=== PATIENT | female | born 1945 | race Caucasian/White ===

== ENCOUNTER 2015-12-28 08:18 | Inpatient (IN) | payer OTHER ==
[~2015-12-28] VITALS: Ht 157.5 cm; Wt 87.9 kg
[~2015-12-28 08:18] MED LIST: /GLIP10TAB PO; /NITR4TASL SL; ALBU17IN INH; AMLO10TA2 PO; ASPI1TAB24 PO; ASPI325T PO; ASPI81TA85 PO; ATEN25TA PO; ATOR1TAB18 PO; ATOR40TA PO; BENA20TA2 PO; BENA40TA2 PO; CARV6.25 PO; CIPR500T3 PO; CLOP75TA2 PO; DOXY150C PO; GLIP10TA6 PO; GLUC500T PO; IBUP80TA PO; INSUH10VL SC; INSULANT SC; ISOS20TAB PO; LANTUS INSULIN SC; METF500T PO; PERCOCET PO; PRAV40TA2 PO; REGULAR INSULIN SC; TYLE325T5 PO; VICT18IN SC; VITA200016 PO; VITA200038 PO; VITAMIN D PO; insulin
[2016-02-01] VITALS (7 sets, daily range): BP systolic 139–176; BP diastolic 63–85; O2SAT 93–96
[2016-02-01] MEDS ORDERED: cefoTEtan DISODIUM 2 GM in D5W MINI-BAG PLUS 100 ML IV ONE ×2 (07:15→15:00)
[2016-02-01] MEDS ORDERED: ROCURONIUM BROMIDE 50 MG/5 ML VIAL As Ordered ONE ×3 (07:21→11:13)
[2016-02-01] MEDS ORDERED: MIDAZOLAM INJ 2 MG/2 ML VIAL (J2250) As Ordered ONE (07:21)
[2016-02-01] MEDS ORDERED: PROPOFOL 200 MG/20 ML VIAL As Ordered ONE ×3 (07:21→14:41)
[2016-02-01] MEDS ORDERED: LIDOCAINE 2% INJ 100 MG/5 ML SDV (FOR ANES.) As Ordered ONE (07:21)
[2016-02-01] MEDS ORDERED: fentaNYL 250 MCG/5 ML INJECTION (J3010) As Ordered ONE (07:21)
[2016-02-01] MEDS ORDERED: LABETALOL HCL 100 MG/20 ML VIAL As Ordered ONE (08:45)
[2016-02-01] MEDS ORDERED: REMIFENTANIL 1MG 3ML VIAL As Ordered ONE ×2 (08:52→10:52)
[2016-02-01] MEDS ORDERED: HYDROmorphone HCL 2 MG/ML 1ML VIAL (J1170) As Ordered ONE (10:46)
[2016-02-01] MEDS ORDERED: NEOSTIGMINE 1MG/ML 5 ML SYRINGE (J2710) As Ordered ONE (11:16)
[2016-02-01] MEDS ORDERED: GLYCOPYRROLATE INJ 0.2 MG/ML 2 ML VIAL As Ordered ONE (11:16)
[2016-02-01] MEDS ORDERED: ONDANSETRON 4MG/2ML VIAL (J2405) As Ordered ONE (11:16)
[2016-02-01] MEDS ORDERED: PHENYLephrine HCL 500 MCG/5 ML (100MCG/ML) SYRINGE (J2370) As Ordered ONE (11:28)
[2016-02-01] MEDS ORDERED: METOPROLOL 5 MG/5 ML VIAL As Ordered ONE (14:10)
[2016-02-01] MEDS ORDERED: HumaLOG INSULIN (NovoLOG) PER UNIT As Ordered ONE ×2 (14:36→15:12)
[2016-02-01] MEDS ORDERED: ESTROGENS VAGINAL CREAM 30GM As Ordered ONE (15:39)
[2016-02-01] MEDS ORDERED: ESTROGENS VAGINAL CREAM 30GM PV ONE (16:07)
[2016-02-01] MEDS ORDERED: MORPHINE 2 MG/ML 1ML SYRINGE IV PRN (16:45)
[2016-02-01] MEDS ORDERED: ONDANSETRON 4MG/2ML VIAL (J2405) IV PRN ×2 (16:45→17:00)
[2016-02-01] MEDS ORDERED: fentaNYL 100 MCG/2 ML INJECTION (J3010) IV PRN (16:45)
[2016-02-01] MEDS ORDERED: LR 1,000 ML IV SCH (16:45)
[2016-02-01] MEDS: KCL 20MEQ in NS 1000ML 1,000 ML IV SCH (16:53)
[2016-02-01] MEDS: HumaLOG INSULIN (NovoLOG) PER UNIT SC SCH ×2 (18:00→23:11)
[2016-02-01] MEDS: PANTOPRAZOLE 40MG INJ (PROTONIX) (C9113) IV SCH (18:55)
[2016-02-01] MEDS: KETOROLAC 30 MG/ML VIAL (J1885) IV SCH (18:55)
[2016-02-01] MEDS ORDERED: GLUCOSE 4 GM CHEW TABLET PO PRN (20:15)
[2016-02-01] MEDS ORDERED: GLUCAGON FOR INJ 1 MG VIAL (J1610) SC PRN (20:15)
[2016-02-01] MEDS ORDERED: DEXTROSE 50% 50 ML SYRINGE IV PRN (20:15)
[2016-02-01] MEDS ORDERED: ACTO30TA7 PO (20:24)
[2016-02-01] MEDS ORDERED: NITR4TASL SL (20:24)
[2016-02-01] MEDS ORDERED: HumaLOG INSULIN (NovoLOG) PER UNIT SC SCH (21:00)
[2016-02-01] MEDS ORDERED: CARVedilol 6.25 MG TAB PO SCH (21:00)
[2016-02-01] MEDS ORDERED: NITROGLYCERIN 0.4 MG SUBL TABLET SL PRN (21:00)
--- NOTE | 2016-02-01 21:15 | CR ---
DATE OF CONSULTATION: 02/01/2016 CONSULTATION REQUESTED BY: Dr. Burnett PRIMARY CARE PROVIDER: Dr. Dove TUMBLING AND ROLLING SUPERVISOR: Dr. Florez REASON FOR CONSULTATION: Medical management. HISTORY OF PRESENT ILLNESS: Ms. Ng is a pleasant 71-year-old female who was admitted postoperatively for radical cystectomy per Dr. Burnett. She apparently has undergone a procedure due to bladder tumor. She currently has no specific complaints. PAST MEDICAL HISTORY: 1. Hypertension. 2. Coronary artery disease. 3. Type 2 diabetes. 4. Hyperlipidemia. 5. Suspected obstructive sleep apnea (ALEX). PAST SURGICAL HISTORY: 1. Pilonidal cyst. 2. Cardiac catheterization. 3. Partial bladder tumor resection. 4. Cystoscopy in November 2015. SOCIAL HISTORY: Noncontributory. FAMILY HISTORY: Noncontributory. ALLERGIES: No known drug allergies. CURRENT HOME MEDICATIONS: - vitamin D 2000 units twice a day - Lantus 50 units daily - glipizide 10 mg twice a day - carvedilol 6.25 mg twice a day - Lipitor 80 mg daily - benazepril 40 mg daily - NovoLog sliding scale with meals - amlodipine 10 mg daily - aspirin 81 mg daily - sublingual nitroglycerin 0.4 mg as directed every 5 minutes as needed REVIEW OF SYSTEMS: CONSTITUTIONAL: She denies fevers, chills, nausea, or vomiting. HEENT: No headache, lightheaded, dizziness, blurry vision, double vision, or tinnitus. PULMONARY: She denies productive sputum, cough, or hemoptysis. CARDIOVASCULAR: No chest pain, dyspnea on exertion, or lower extremity edema. GASTROINTESTINAL: No nausea, vomiting, diarrhea. Bowel movements are regular. No hematochezia or melena. GENITOURINARY: She denies any dysuria. As indicated above, she does have a history of bladder tumor with partial resection and repeat radical cystectomy done this evening. MUSCULOSKELETAL: No bone, muscle, or joint pain, swelling, or erythema. NEUROLOGIC: No paresthesias or paralysis. ENDOCRINE: Positive for diabetes. Negative for thyroid disorder. HEMATOLOGY: No bleeding or bruising disorder. No prior history of venous thromboembolism. ONCOLOGY: Positive for bladder tumor. PSYCHIATRIC: Negative for depression. No suicidal ideation. No audiovisual hallucination. A 10-point review of systems complete. Pertinent positives are listed. PHYSICAL EXAMINATION: Temperature is 98.6, pulse 86, respiratory rate 20, blood pressure (BP) 164/70, SpO2 93% on 3 liters. GENERAL: The patient appears to be in no acute distress. She is alert and oriented. HEENT: Unremarkable. Throat clear. LUNGS: Diminished bibasilar breath sounds; otherwise clear. HEART: Regular rate and rhythm. ABDOMEN: Obese, soft. Positive bowel sounds. EXTREMITIES: No edema. No calf tenderness. Fingerstick this evening is 294. IMPRESSION: Ms. Ng is a pleasant 71-year-old female who is status post radical cystectomy, postoperative day number 0, and we have been asked to follow along for medical management. PROBLEM LIST: 1. Bladder tumor status post radical cystectomy 2. Hypertension. 3. Coronary artery disease. 4. Diabetes, type 2. 5. Hyperlipidemia. 6. Suspected obstructive sleep apnea. RECOMMENDATIONS: Would recommend holding the glipizide during her hospital stay. She may resume her regular home medications. She remains nothing by mouth with an nasogastric (NG) tube per surgical orders. I did make a change in her fingersticks to every 6 hours with standard sliding scale per [facility] ([facility]) protocol. This could be adjusted as needed. Once she starts eating I would recommend adding on her daily dose of Lantus at 50 units daily. Her blood pressure medications will have hold parameters, and I did take the liberty to add daily labs, complete blood counts (CBC), and renal profile. This case will be signed out to Dr. Destin Rivero, who will be following for the hospitalist group for the next few days. Any further questions or issues should they arise, please feel free to contact the hospitalist group. Thank you for allowing us to participate in the care of this patient.
[2016-02-01] MEDS ORDERED: HumuLIN R (REGULAR) INSULIN (NovoLIN R) **100U/ML** PER UNIT SC SCH (22:00)
[2016-02-01] MEDS: ACETAMINOPHEN 650MG ER TAB (TYLENOL ARTHRITIS) PO SCH (22:04)
[2016-02-01] MEDS: CARVedilol 6.25 MG TAB PO SCH (22:04)
[2016-02-01] MEDS: VITAMIN D 1,000 INTERNATIONAL UNITS TABLET PO SCH (22:05)
[2016-02-01] MEDS: LevoFLOXacin 500 MG in APPROPRIATE DILUENT 1 EA IV SCH (22:05)
[2016-02-02] VITALS (19 sets, daily range): BP systolic 135–167; BP diastolic 63–70; O2SAT 94–99
--- NOTE | 2016-02-02 00:02 | RO ---
DATE OF PROCEDURE: 02/01/2016 PREPROCEDURE DIAGNOSIS: Bladder cancer. POSTPROCEDURE DIAGNOSIS: Bladder neoplasm. PROCEDURE: Robotic-assisted radical cystectomy, plus total hysterectomy, plus bilateral pelvic lymph node dissection, plus bilateral salpingo-oophorectomy, plus intracorporeal ileal conduit urinary diversion. SURGEON: Juvenal Burnett MD CULINARY MANAGER: Caridad Verduzco ANESTHESIA: General. FINDINGS: Bladder, uterus, bilateral ovaries and bilateral lymph nodes, pelvic. ESTIMATED BLOOD LOSS: 600 mL. COMPLICATIONS: None. HISTORY OF THE PRESENT ILLNESS: A 71-year-old female patient with an important medical history of hypertension, insulin-dependent diabetes and coronary artery disease with cardiac stent. She has stopped her anticoagulation therapy, and she is only on aspirin 81 mg, baby aspirin. She has consented for a robotic-assisted radical cystectomy, plus total hysterectomy, plus bilateral salpingo-oophorectomy, plus bilateral extended pelvic lymph dissection, plus ileal conduit urinary diversion, intracorporeal urinary diversion. For this reason, we are performing this surgery today. DESCRIPTION OF PROCEDURE: In a patient under general anesthesia in supine modified low lithotomy position with an NG tube draining gastric content, and after prepping and draping the area of concern, which included the entire genitalia and abdomen, we inserted a #16-Somali Castro catheter and inflated the balloon to 10 mL and put it to gravity. We then performed a 2 cm incision supraumbilically, 4 cm above the umbilicus. Through this incision, we opened peritoneal cavity and introduced a balloon trocar 12 mm in diameter, with a 40 mL balloon, inflated the abdomen with CO2 at a maximum pressure of 50 at high flow. We then placed the patient in steep Trendelenburg position. We then positioned lateral trocars with a hand-held robotic-assisted camera 0 degrees. We placed the other trocars, two metallic trocars 8 cm away from each other on the right side, one VersaStep in the midclavicular line, 8 cm away from this one, an 8 mm metallic trocar and 8 cm from this one, a 15 mm trocar for the Endo ALISHA staplers for the intracorporeal urinary diversion. We then proceeded to dock the robot. On the left arm we used monopolar scissors, on the right arm we used bipolar PK and ProGrasp. We started by dissecting the sigmoid colon and detaching the line of Toldt, the sigmoid colon on the left side and turning it toward the right side. We identified the ureter, then performed a ureterolysis from above the iliac vessels down to the bladder. We ligated the ureter proximal to the bladder with a Hem-o-Tawanna times two. One of the Hem-o-Loks was attached to a inked Vicryl stitch , cut in the middle. We then proceeded to do the same pattern, mobilizing the sigmoid toward the left side and dissecting the ureter up to the bladder. We hemoclipped the ureter times two at the entrance of the bladder. One of the hemoclips was attached to a Vicryl stitch non-dyed, we cut in the middle. Once the ureters were dissected, we dissected the pedicles of the ovaries and Hem-o-Loked both pedicles with Hem-o-Tawanna times two and cut in the middle. We then proceeded to pass a Jasson needle and a #2-0 silk stitch percutaneously, suprapubically and passed it through the uterus and then back percutaneously outside the body and put a Jie clamp to the skin to actually retract the uterus anteriorly. We Hem-o-Loked the ovaries bilaterally to the silk stitch also in the midline. This allowed us to actually elevate the uterus and the ovaries up completely and dissected the pedicles of the uterus. I ligated with Hem-o-Loks the uterine arteries bilaterally. We then proceeded to actually put a sponge stick in the vagina, and with monopolar scissors, we cut the cul-de-sac of the vagina and then opened the vagina exposing the sponge stick. At that moment in time, with a LigaSure device , we dissected the vagina laterally on both sides up to the level of the pedicles of the bladder. We secured the pedicles of the bladder also with the LigaSure device and Laurel laparoscopic device. Once the pedicles of the bladder were secured, we actually mobilized the bladder completely and dropped the bladder by cutting the stitch silk and then cutting the pubic ligaments as well as the endopelvic fascia. Once the dorsal vein complex was visualized, we secured it with the LigaSure device also. We then proceeded to actually push with the finger at the level of the urethra where the Castro was entering to actually push into the pelvis the urethra and dissect the urethral meatus completely. Once the bladder was completely detached with the uterus attached to it and the ovaries, we placed a Hem-o-Tawanna on the Castro catheter and cut the Castro catheter to keep the balloon inside the bladder. We then passed a 15 mm Endo Catch bag through the vagina and placed the bladder, uterus and ovaries inside the Endo Catch bag. We extracted the specimens through the vagina. At that moment in time, we performed our extended pelvic lymph node dissection with monopolar scissors and bipolar PK. Our limits of dissection were the bifurcation of the iliac arteries superiorly, medially the sacrum, posteriorly the pelvic sidewall, inferiorly the lacunar ligaments and laterally the genitofemoral nerves. The packets obtained were the obturator packets, the internal iliac vein packets, the external iliac vein packets, the hypogastric packets and the common iliac packets. All were sent in one Endo Catch bag through the vagina also. The same procedure and technique was carried out on the right side; right extended pelvic lymph node dissection. Lymphostasis and hemostasis was carried out with bipolar PK and Hem-o-Loks. We then proceeded to actually reconstruct the vagina by dissecting the vaginal wall posteriorly and allowing the vagina to flap in a clam manner anteriorly to actually reconstruct a new vagina. We sutured the new vagina with a V-Loc in a running fashion times two to each angle in a watertight anastomosis. We placed packing with Colpotrophine packing into the vagina. We then proceeded to actually transpose our left ureter underneath the sigmoid colon from left to right and then spatulate the ureters for about 3 cm in length. We then proceeded to actually, with Monocryl stitches, do a Khalil technique of ureter to ureter anastomosis, side to side, starting in the spatulation area in the angle with a #4-0 Monocryl and running it up to the distal end. Once this was done, we identified our ileal segment. With bowel clamps, we grabbed the ileum and then with a ALISHA stapler 60 cm x 2.5 cm entering through pediatric dental assistant port, we dissected our ileal segment times two. A 15 cm ileal segment was harvested. We then proceeded to do our ileal-ileal anastomosis, [id number] by cutting the antimesenteric border of the bowel and then sliding in a 60 x 2.5 mm Endo ALISHA stapler and an additional 45 mm x 2.5 mm Endo ALISHA stapler inside the anastomosis , extending the ileal-ileal anastomosis. We then proceeded to actually use a 60 mm x 2.5 to close the kelin hiatus of the [id number] anastomosis and then another 45 also to finish the closure of the anastomosis. Once the ileal-ileal anastomosis, [id number], was carried out, we actually proceeded to actually excise the posterior part of the ileal conduit to actually do our ureteral ileal anastomosis. With #4-0 Monocryl in a running fashion, we started suturing the right ureter to the posterior part of the distal end of the ileal conduit in a running fashion. Once this was carried out, we placed the single J stent, #7-Somali, up the kidney right side and left side and then through the ileal conduit. We then proceeded to actually close the ileal ureteral anastomosis with a #4-0 Monocryl in a running fashion. Once this was performed, we took out the third arm and placed a round JALIL drain into the pelvis. We then proceeded to extract the 15 mm port and from inside, with a V-Loc, we secured the hiatus of that port to prevent any port hernias and suturing from inside in a running fashion with a #2-0 V-Loc. We then proceeded to extract all the instruments and grab the stents and the silk attached to the proximal end of the ileal conduit to extract it through the trocar incision site on the right side in the midclavicular line. After extracting all the instruments, we undocked the robot, we took all the trocars out, and we extended our ostomy incision, our trocar incision site with a cruciate incision in the skin. We cut both edges with curved Mayos creating a rounded stoma site. We then did a cruciate incision in the fascia of the muscle and dilated the muscle and split the rectus muscle. Through this, we actually could put out the ileal conduit and we did a [place] technique to mature the stoma. To mature the stoma, we did the [place] with #2-0 Vicryl, we suture ligated the stents to the skin with a #3-0 nylon. We suture ligated also the JALIL drain with a #3-0 nylon. We then placed a urostomy bag on the ileal conduit and JALIL bulb to suction on the JALIL drain. We closed the midline incision with a PDS #1 in separate stitches, we closed the skin with #4-0 Monocryl subcuticular. We placed Mastisol, Steri-Strips, Telfa and Tegaderm on top of each incision site. PLAN: The patient will pass to recovery and then to the progressive care unit (PCU) since she is diabetic, insulin dependent, and also has a history of hypertension, as well as coronary artery disease. Once she is tolerating a regular diet and ambulating well, she will be discharged home. MAGNOLIA
[2016-02-02] MEDS: KCL 20MEQ in NS 1000ML 1,000 ML IV SCH ×4 (01:31→17:45)
[2016-02-02] MEDS: KETOROLAC 30 MG/ML VIAL (J1885) IV SCH ×2 (01:32→09:09)
[2016-02-02] MEDS: ACETAMINOPHEN 650MG ER TAB (TYLENOL ARTHRITIS) PO SCH ×3 (05:06→21:52)
[2016-02-02] MEDS: HumaLOG INSULIN (NovoLOG) PER UNIT SC SCH ×3 (05:21→17:24)
[2016-02-02 06:03] LABS: MEAN CORPUSCULAR HEMOGLOBIN 28.2 pg (27.0-33.0); MEAN CORPUSCULAR HGB CONC 32.3 g/dl (32.0-36.5); MEAN CORPUSCULAR VOLUME 87.4 fl (80.0-96.0); RED CELL DISTRIBUTION WIDTH 15.8 % (11.5-14.5); WHITE BLOOD COUNT 11.2 K/mm3 (4.0-10.0)
[2016-02-02 06:24] LABS: ALBUMIN 2.9 GM/DL (3.2-5.2); CALCIUM LEVEL 7.8 MG/DL (8.8-10.2); CREATININE FOR GFR 1.05 MG/DL (0.55-1.02); GLOMERULAR FILTRATION RATE 55.3 (>45); PHOSPHORUS LEVEL 3.7 MG/DL (2.5-4.9); POTASSIUM SERUM 4.5 MEQ/L (3.5-5.1)
[2016-02-02] MEDS ORDERED: ATORVASTATIN 20 MG TAB PO SCH (09:00)
[2016-02-02] MEDS ORDERED: amLODIPine 10 MG TAB PO SCH (09:00)
[2016-02-02] MEDS: ATORVASTATIN 20 MG TAB PO SCH (09:08)
[2016-02-02] MEDS: VITAMIN D 1,000 INTERNATIONAL UNITS TABLET PO SCH ×2 (09:08→21:52)
[2016-02-02] MEDS: BENAZEPRIL 20 MG TAB PO SCH (09:08)
[2016-02-02] MEDS: PANTOPRAZOLE 40MG INJ (PROTONIX) (C9113) IV SCH (09:08)
[2016-02-02] MEDS: CARVedilol 6.25 MG TAB PO SCH ×2 (09:09→21:52)
[2016-02-02] MEDS: amLODIPine 10 MG TAB PO SCH (09:09)
[2016-02-02] MEDS: ASPIRIN 81 MG CHEW TABLET PO SCH (09:09)
--- NOTE | 2016-02-02 14:10 | IPNPDOC ---
Assessment/Plan Date Seen The patient was seen on 02/02/16. Plan / VTE VTE Prophylaxis Ordered?: Yes Plan Plan Text 71 year old female patient with PMH of CAD, HTN, DM, HLD, and morbid obesity came in for bladder tumor s/p cystectomy on 02/01/16, medicine team was consulted for the management of medical comorbidities. 1. Bladder tumor s/p cystectomy on 02/01/16 Follow with urology team. 2. HTN On carvedilol 6.25mg po bid, amlodipine 10mg po daily. Would resume her home dose of benazepril 40mg po daily if BP is still elevated. 3. CAD / HLD No active complaints. On ASA and Lipitor. 4. DM On insulin sliding scale per [facility] protocol. Holding oral diabetic regimen for now. Once she resumes her diet, her home dose of Lantus 50 units SC daily can be restarted. 5. Suspicious ALEX / Morbid obesity Would consider sleep study but can be done as an outpatient. Thank you for the consult. Will continue to follow the patient. Subjective Review of Systems CC/HPI 71 year old female patient who was admitted for bladder neoplasm and underwent cystectomy. Medicine team was consulted for the management for other comorbidities. Patient was seen and examined at bedside. She is in no acute distress. No chest pain or shortness of breath. Blood glucose is still elevated at 260-300. General: Denies: Chills, Fatigue, Malaise, Night Sweats, Normal Appetite, Other Symptoms, ROS Unobtainable Constitutional: Denies: Chills, Fatigue, Fever, Lethargy, Malaise, Night Sweats , Other, Weakness, Weight Loss Pulmonary: Denies: Cough, Dyspnea, Other Symptoms, Pleuritic Chest Pain Cardiovascular: Denies: Chest Pain, Edema, Lt Headedness, Orthopnea, Other Symptoms, Palpitations, Paroxysmal Noc. Dyspnea Gastrointestinal: Denies: Abdominal Pain, Constipation, Diarrhea, Hematochezia , Melena, Nausea, Other Symptoms, Vomiting Objective Physical Examination General Exam: Positive: Other (Morbidly obese) Neck Exam: Positive: Other (Hard to measure JVP because of thick neck) Chest Exam: Negative: Clear to auscultation, Diminished, Normal air movement, Other, Rales, Rhonchi, Wheezing Heart Exam: Negative: Bradycardic, Gallops, Irregular Rhythm, Murmurs, Normal S1, Normal S2, Other, Rate Normal, Regular Rhythm, Rubs, Tachycardic Telemetry: Positive: No significant arrhythmia Abdomen Exam: Negative: BS Hyperactive, BS Hypoactive, Hepatospenomegaly, Hernia, Mass, Normal bowel sounds, Other, Soft, Tenderness Vital Signs/I&O Vital Signs Date Time Temp Pulse Resp B/P Pulse Ox O2 Delivery O2 Flow Rate FiO2 02/02/16 11:00 97 Nasal Cannula 3.0 02/02/16 09:09 79 167/70 02/02/16 08:00 97.2 20 I&O- Last 24 Hours up to 6 AM 02/02/16 06:00 Intake Total 4749 ml Output Total 2986 ml Balance 1763 ml Laboratory Data Labs 24H Laboratory Tests 2 02/01/16 16:33: Bedside Glucose (Misc Panel) 294H 02/01/16 18:34: Bedside Glucose (Misc Panel) 291H 02/01/16 23:03: Bedside Glucose (Misc Panel) 304H 02/02/16 05:12: Bedside Glucose (Misc Panel) 264H 02/02/16 05:41: Albumin 2.9L, Blood Urea Nitrogen 20H, Creatinine 1.05H, Sodium Level 140, Potassium Level 4.5, Chloride Level 104, Carbon Dioxide Level 27, Anion Gap 9, Calcium Level 7.8L, Glomerular Filtration Rate 55.3, Phosphorus Level 3.7 02/02/16 11:33: Bedside Glucose (Misc Panel) 293H CBC/BMP Laboratory Tests 02/02/16 05:41 Anion Gap 9, Red Blood Count 3.57 L, Mean Corpuscular Volume 87.4, Mean Corpuscular Hemoglobin 28.2, Mean Corpuscular Hemoglobin Concent 32.3, Red Cell Distribution Width 15.8 H FSBS Laboratory Tests Test 02/01/16 16:33 02/01/16 18:34 02/01/16 23:03 02/02/16 05:12 Range/Units Bedside Glucose (Misc Panel) 294 291 304 264 80-115 MG/DL Test 02/02/16 11:33 Range/Units Bedside Glucose (Misc Panel) 293 80-115 MG/DL NAZARIO MILLER MD Feb 02, 2016 14:10
[2016-02-02] MEDS ORDERED: KETOROLAC 30 MG/ML VIAL (J1885) IV SCH (17:45)
[2016-02-02] MEDS: LevoFLOXacin 500 MG in APPROPRIATE DILUENT 1 EA IV SCH (20:02)
[2016-02-02] MEDS: KETOROLAC 30 MG/ML VIAL (J1885) IV PRN (20:03)
[2016-02-03] VITALS (12 sets, daily range): BP systolic 136–175; BP diastolic 62–88; O2SAT 97–98
[2016-02-03] MEDS: HumaLOG INSULIN (NovoLOG) PER UNIT SC SCH ×4 (00:19→17:33)
[2016-02-03] MEDS: KCL 20MEQ in NS 1000ML 1,000 ML IV SCH ×2 (02:13→12:20)
[2016-02-03] MEDS ORDERED: MORPHINE 2 MG/ML 1ML SYRINGE IV ONE (03:15)
[2016-02-03 05:57] LABS: MEAN CORPUSCULAR HEMOGLOBIN 28.3 pg (27.0-33.0); MEAN CORPUSCULAR HGB CONC 30.8 g/dl (32.0-36.5); MEAN CORPUSCULAR VOLUME 91.9 fl (80.0-96.0); RED CELL DISTRIBUTION WIDTH 14.7 % (11.5-14.5); WHITE BLOOD COUNT 7.8 K/mm3 (4.0-10.0)
[2016-02-03 06:06] LABS: ALBUMIN 2.5 GM/DL (3.2-5.2); ANION GAP 7 MEQ/L (8-16); BLOOD UREA NITROGEN 14 MG/DL (7-18); CALCIUM LEVEL 7.6 MG/DL (8.8-10.2); CARBON DIOXIDE LEVEL 27 MEQ/L (21-32); CHLORIDE LEVEL 110 MEQ/L (98-107); CREATININE FOR GFR 0.69 MG/DL (0.55-1.02); GLOMERULAR FILTRATION RATE > 60.0 (>45); GLUCOSE, FASTING 218 MG/DL (80-110); PHOSPHORUS LEVEL 2.1 MG/DL (2.5-4.9); POTASSIUM SERUM 4.5 MEQ/L (3.5-5.1); SODIUM LEVEL 144 MEQ/L (136-145)
[2016-02-03] MEDS: ACETAMINOPHEN 650MG ER TAB (TYLENOL ARTHRITIS) PO SCH ×3 (06:08→21:38)
[2016-02-03] MEDS: PANTOPRAZOLE 40MG INJ (PROTONIX) (C9113) IV SCH (08:33)
[2016-02-03] MEDS: ASPIRIN 81 MG CHEW TABLET PO SCH (08:34)
[2016-02-03] MEDS: KETOROLAC 30 MG/ML VIAL (J1885) IV PRN ×2 (08:34→16:26)
[2016-02-03] MEDS: VITAMIN D 1,000 INTERNATIONAL UNITS TABLET PO SCH ×2 (08:34→21:38)
[2016-02-03] MEDS: ATORVASTATIN 20 MG TAB PO SCH (08:34)
[2016-02-03] MEDS: CARVedilol 6.25 MG TAB PO SCH ×2 (08:43→21:38)
[2016-02-03] MEDS: BENAZEPRIL 20 MG TAB PO SCH (08:43)
[2016-02-03] MEDS: amLODIPine 10 MG TAB PO SCH (08:43)
--- NOTE | 2016-02-03 10:40 | IPNPDOC ---
Assessment/Plan Date Seen The patient was seen on 02/03/16. Plan / VTE VTE Prophylaxis Ordered?: No VTE Exclusion Pharmacological: Bleeding Risk Plan Plan Text 71 year old female patient with PMH of CAD, HTN, DM, HLD, and morbid obesity came in for bladder tumor s/p cystectomy on 02/01/16, medicine team was consulted for the management of medical comorbidities. 1. Bladder tumor s/p cystectomy on 02/01/16 Follow with urology team. Pain management per the primary team. 2. HTN On carvedilol 6.25mg po bid, amlodipine 10mg po daily. Benazepril 40mg po daily was resumed. Would monitor her BP for now with current medications. 3. CAD / HLD No active complaints. On ASA and Lipitor. 4. DM On insulin sliding scale per [facility] protocol. Holding oral diabetic regimen for now. Since she resumed her diet, would restart her home dose of Lantus 50 units SC daily at night. 5. Anemia No signs of bleeding, likely dilutional. Hb checked 10.1 to 9.0, and repeated as 8.8. Will monitor CBC for now. 6. Suspicious ALEX / Morbid obesity Would consider sleep study but can be done as an outpatient. 7. DVT prophylaxis She is not on since post-op. Would recommend heparin SC if no bleeding concerns per the primary team. Thank you for the consult. Will continue to follow the patient. Subjective Review of Systems CC/HPI Patient was seen and examined at bedside. She is in no acute distress. No chest pain or shortness of breath. No signs of bleeding. She is getting out of bed. Her glucose was at around 260-300 and is better controlled today at around 200- 260. Objective Physical Examination General Exam: Positive: Other (Morbidly obese) Neck Exam: Positive: Other (Hard to measure JVP because of thick neck) Chest Exam: Negative: Clear to auscultation, Diminished, Normal air movement, Other, Rales, Rhonchi, Wheezing Heart Exam: Negative: Bradycardic, Gallops, Irregular Rhythm, Murmurs, Normal S1, Normal S2, Other, Rate Normal, Regular Rhythm, Rubs, Tachycardic Telemetry: Positive: No significant arrhythmia Abdomen Exam: Negative: BS Hyperactive, BS Hypoactive, Hepatospenomegaly, Hernia, Mass, Normal bowel sounds, Other, Soft, Tenderness Vital Signs/I&O Vital Signs Date Time Temp Pulse Resp B/P Pulse Ox O2 Delivery O2 Flow Rate FiO2 02/03/16 08:43 63 175/76 02/03/16 08:00 97.4 20 98 Nasal Cannula 3.0 I&O- Last 24 Hours up to 6 AM 02/03/16 06:00 Intake Total 1980 ml Output Total 2860 ml Balance -880 ml Laboratory Data Labs 24H Laboratory Tests 2 02/02/16 11:33: Bedside Glucose (Misc Panel) 293H 02/02/16 17:20: Bedside Glucose (Misc Panel) 249H 02/03/16 00:08: Bedside Glucose (Misc Panel) 236H 02/03/16 05:31: Albumin 2.5L, Blood Urea Nitrogen 14, Creatinine 0.69, Sodium Level 144, Potassium Level 4.5, Chloride Level 110H, Carbon Dioxide Level 27, Anion Gap 7L , Calcium Level 7.6L, Glomerular Filtration Rate > 60.0, Phosphorus Level 2.1#L 02/03/16 05:56: Bedside Glucose (Misc Panel) 209H CBC/BMP Laboratory Tests 02/03/16 05:31 Anion Gap 7 L, Red Blood Count 3.19 L, Mean Corpuscular Volume 91.9, Mean Corpuscular Hemoglobin 28.3, Mean Corpuscular Hemoglobin Concent 30.8 L, Red Cell Distribution Width 14.7 H FSBS Laboratory Tests Test 02/02/16 11:33 02/02/16 17:20 02/03/16 00:08 02/03/16 05:56 Range/Units Bedside Glucose (Misc Panel) 293 249 236 209 80-115 MG/DL NAZARIO MILLER MD Feb 03, 2016 10:40
[2016-02-03 13:26] LABS: BASO % 0.5 % (0.0-1.0); EOS # 0.1 K/mm3 (0.0-0.50); EOS % 1.1 % (0.0-3.0); LARGE UNSTAINED CELL # 0.2 K/mm3 (0.0-0.4); LARGE UNSTAINED CELL % 2.4 % (0.0-4.0); LYMPH % 21.5 % (24.0-44.0); MEAN CORPUSCULAR HEMOGLOBIN 27.8 pg (27.0-33.0); MEAN CORPUSCULAR HGB CONC 30.8 g/dl (32.0-36.5); MEAN CORPUSCULAR VOLUME 90.5 fl (80.0-96.0); MONO # 0.5 K/mm3 (0.0-0.8); MONO % 5.4 % (0.0-5.0); NEUTROPHILS # 5.7 K/mm3 (1.8-7.7); NEUTROPHILS % 69.1 % (36.0-66.0); PLATELET COUNT, AUTOMATED 129 k/mm3 (150-450); RED CELL DISTRIBUTION WIDTH 15.7 % (11.5-14.5); WHITE BLOOD COUNT 8.2 K/mm3 (4.0-10.0)
[2016-02-03] MEDS: LevoFLOXacin 500 MG in APPROPRIATE DILUENT 1 EA IV SCH (19:57)
[2016-02-04] MEDS: HumaLOG INSULIN (NovoLOG) PER UNIT SC SCH ×5 (00:12→21:43)
[2016-02-04] MEDS: oxyCODONE 5MG TAB PO PRN ×3 (00:12→21:14)
[2016-02-04] MEDS: KCL 20MEQ in NS 1000ML 1,000 ML IV SCH (01:46)
[2016-02-04 04:45] VITALS: BP 152/75
[2016-02-04] MEDS: ACETAMINOPHEN 650MG ER TAB (TYLENOL ARTHRITIS) PO SCH ×3 (05:33→21:14)
[2016-02-04] MEDS: KETOROLAC 30 MG/ML VIAL (J1885) IV PRN ×2 (05:33→14:27)
[2016-02-04 06:58] LABS: MEAN CORPUSCULAR HEMOGLOBIN 28.1 pg (27.0-33.0); MEAN CORPUSCULAR HGB CONC 31.1 g/dl (32.0-36.5); MEAN CORPUSCULAR VOLUME 90.4 fl (80.0-96.0); RED CELL DISTRIBUTION WIDTH 15.5 % (11.5-14.5); WHITE BLOOD COUNT 8.6 K/mm3 (4.0-10.0)
[2016-02-04 07:21] LABS: ALBUMIN 2.7 GM/DL (3.2-5.2); ANION GAP 10 MEQ/L (8-16); BLOOD UREA NITROGEN 14 MG/DL (7-18); CALCIUM LEVEL 8.3 MG/DL (8.8-10.2); CARBON DIOXIDE LEVEL 23 MEQ/L (21-32); CHLORIDE LEVEL 106 MEQ/L (98-107); CREATININE FOR GFR 0.84 MG/DL (0.55-1.02); GLOMERULAR FILTRATION RATE > 60.0 (>45); GLUCOSE, FASTING 279 MG/DL (80-110); PHOSPHORUS LEVEL 2.1 MG/DL (2.5-4.9); POTASSIUM SERUM 4.4 MEQ/L (3.5-5.1); SODIUM LEVEL 139 MEQ/L (136-145)
[2016-02-04 08:00] VITALS: BP 161/72
[2016-02-04] MEDS: ASPIRIN 81 MG CHEW TABLET PO SCH (08:46)
[2016-02-04] MEDS: VITAMIN D 1,000 INTERNATIONAL UNITS TABLET PO SCH ×2 (08:46→21:14)
[2016-02-04] MEDS: PANTOPRAZOLE 40MG INJ (PROTONIX) (C9113) IV SCH (08:46)
[2016-02-04] MEDS: ATORVASTATIN 20 MG TAB PO SCH (08:46)
[2016-02-04] MEDS: BENAZEPRIL 20 MG TAB PO SCH (08:47)
[2016-02-04] MEDS: amLODIPine 10 MG TAB PO SCH (08:47)
[2016-02-04] MEDS: CARVedilol 6.25 MG TAB PO SCH ×2 (08:49→21:15)
[2016-02-04 12:00] VITALS: BP 146/74
--- NOTE | 2016-02-04 12:20 | IPNPDOC ---
Assessment/Plan Date Seen The patient was seen on 02/04/16. Plan / VTE VTE Prophylaxis Ordered?: Yes Plan Plan Text 71 year old female patient with PMH of CAD, HTN, DM, HLD, and morbid obesity came in for bladder tumor s/p cystectomy on 02/01/16, medicine team was consulted for the management of medical comorbidities. 1. Bladder tumor s/p cystectomy on 02/01/16 Follow with urology team. Pain management per the primary team. 2. HTN On carvedilol 6.25mg po bid, amlodipine 10mg po daily, benazepril 40mg po daily. Her BP checked on a higher side but she is having mild abdominal pain from the surgery. Would monitor her BP for now with current medications. 3. CAD / HLD No active complaints. On ASA and Lipitor. 4. DM On insulin sliding scale per [facility] protocol. Holding oral diabetic regimen for now. Since she resumed her diet, restarted Detemir insulin 30 units SC daily. Was on Lantus 50 units SC daily at home but will start from 30 units and monitor her glucose. 5. Anemia No signs of bleeding, likely dilutional. Will monitor CBC. 6. Suspicious ALEX / Morbid obesity Would consider sleep study but can be done as an outpatient. 7. DVT prophylaxis Started heparin SC since no bleeding. Thank you for the consult. Will continue to follow the patient. Subjective Review of Systems CC/HPI Patient was seen and examined at bedside. She is in no acute distress but complaining of mild lower abdominal pain from the surgery. No chest pain or shortness of breath. Gastrointestinal: Reports: Abdominal Pain (Lower abdominal pain from the surgery) Objective Physical Examination General Exam: Positive: Other (Morbidly obese) Neck Exam: Positive: Other (Hard to measure JVP because of thick neck) Chest Exam: Negative: Clear to auscultation, Diminished, Normal air movement, Other, Rales, Rhonchi, Wheezing Heart Exam: Negative: Bradycardic, Gallops, Irregular Rhythm, Murmurs, Normal S1, Normal S2, Other, Rate Normal, Regular Rhythm, Rubs, Tachycardic Telemetry: Positive: No significant arrhythmia Abdomen Exam: Negative: BS Hyperactive, BS Hypoactive, Hepatospenomegaly, Hernia, Mass, Normal bowel sounds, Other, Soft, Tenderness Vital Signs/I&O Vital Signs Date Time Temp Pulse Resp B/P Pulse Ox O2 Delivery O2 Flow Rate FiO2 02/04/16 09:19 20 02/04/16 08:49 78 161/72 02/04/16 08:00 98.2 92 Room Air 02/03/16 08:00 3.0 I&O- Last 24 Hours up to 6 AM 02/04/16 06:00 Intake Total 3120 ml Output Total 3990 ml Balance -870 ml Laboratory Data Labs 24H Laboratory Tests 2 02/03/16 12:23: Bedside Glucose (Misc Panel) 285H 02/03/16 13:04: White Blood Count 8.2, Red Blood Count 3.17L, Hemoglobin 8.8L, Hematocrit 28.7L , Mean Corpuscular Volume 90.5, Mean Corpuscular Hemoglobin 27.8, Mean Corpuscular Hemoglobin Concent 30.8L, Red Cell Distribution Width 15.7H, Platelet Count 129L, Neutrophils (%) (Auto) 69.1H, Lymphocytes (%) (Auto) 21.5L , Monocytes (%) (Auto) 5.4H, Eosinophils (%) (Auto) 1.1, Basophils (%) (Auto) 0.5, Neutrophils # (Auto) 5.7, Lymphocytes # (Auto) 2.0, Monocytes # (Auto) 0.5 , Eosinophils # (Auto) 0.1, Basophils # (Auto) 0.0, Large Unclassified Cells # 0.2, Large Unclassified Cells % 2.4 02/03/16 16:28: Bedside Glucose (Misc Panel) 260H 02/04/16 00:05: Bedside Glucose (Misc Panel) 260H 02/04/16 06:48: Albumin 2.7L, Blood Urea Nitrogen 14, Creatinine 0.84, Sodium Level 139, Potassium Level 4.4, Chloride Level 106, Carbon Dioxide Level 23, Anion Gap 10, Calcium Level 8.3L, Glomerular Filtration Rate > 60.0, Phosphorus Level 2.1L 02/04/16 11:10: Bedside Glucose (Misc Panel) 304H CBC/BMP Laboratory Tests 02/03/16 13:04 Red Blood Count 3.17 L, Mean Corpuscular Volume 90.5, Mean Corpuscular Hemoglobin 27.8, Mean Corpuscular Hemoglobin Concent 30.8 L, Red Cell Distribution Width 15.7 H, Neutrophils (%) (Auto) 69.1 H, Lymphocytes (%) (Auto ) 21.5 L, Monocytes (%) (Auto) 5.4 H, Eosinophils (%) (Auto) 1.1, Basophils (%) (Auto) 0.5, Neutrophils # (Auto) 5.7, Lymphocytes # (Auto) 2.0, Monocytes # ( Auto) 0.5, Eosinophils # (Auto) 0.1, Basophils # (Auto) 0.0 02/04/16 06:48 Red Blood Count 3.22 L, Mean Corpuscular Volume 90.4, Mean Corpuscular Hemoglobin 28.1, Mean Corpuscular Hemoglobin Concent 31.1 L, Red Cell Distribution Width 15.5 H, Anion Gap 10 FSBS Laboratory Tests Test 02/03/16 12:23 02/03/16 16:28 02/04/16 00:05 02/04/16 11:10 Range/Units Bedside Glucose (Misc Panel) 285 260 260 304 80-115 MG/DL NAZARIO MILLER MD Feb 04, 2016 12:20
[2016-02-04] MEDS ORDERED: SLF 3 ML SYR IV PRN (13:00)
[2016-02-04] MEDS: SLF 3 ML SYR IV SCH ×2 (14:26→21:44)
[2016-02-04] MEDS: HEPARIN SOD (PORCINE) 5000 UNITS/ML VIAL SQ SCH ×2 (14:26→21:14)
[2016-02-04] MEDS: LevoFLOXacin 500 MG TABLET PO SCH (14:26)
[2016-02-04 16:00] VITALS: BP 135/62
[2016-02-04 20:00] VITALS: BP 154/70
[2016-02-04] MEDS: LEVEMIR (INSULIN DETEMIR) 1 UNITS/0.01ML SC SCH (21:00)
[2016-02-04 23:59] VITALS: BP 137/65
[2016-02-05] MEDS: KETOROLAC 30 MG/ML VIAL (J1885) IV PRN (03:11)
[2016-02-05 04:00] VITALS: BP 126/59
[2016-02-05 05:23] LABS: MEAN CORPUSCULAR HEMOGLOBIN 28.2 pg (27.0-33.0); MEAN CORPUSCULAR HGB CONC 31.8 g/dl (32.0-36.5); MEAN CORPUSCULAR VOLUME 88.5 fl (80.0-96.0); RED CELL DISTRIBUTION WIDTH 15.5 % (11.5-14.5); WHITE BLOOD COUNT 7.6 K/mm3 (4.0-10.0)
[2016-02-05 05:35] LABS: ALBUMIN 2.5 GM/DL (3.2-5.2); CALCIUM LEVEL 8.1 MG/DL (8.8-10.2); CREATININE FOR GFR 1.56 MG/DL (0.55-1.02); PHOSPHORUS LEVEL 3.1 MG/DL (2.5-4.9); POTASSIUM SERUM 4.4 MEQ/L (3.5-5.1)
[2016-02-05] MEDS: ACETAMINOPHEN 650MG ER TAB (TYLENOL ARTHRITIS) PO SCH ×3 (05:46→21:34)
[2016-02-05] MEDS: LevoFLOXacin 500 MG TABLET PO SCH (05:46)
[2016-02-05] MEDS: HEPARIN SOD (PORCINE) 5000 UNITS/ML VIAL SQ SCH ×3 (05:46→21:34)
[2016-02-05] MEDS: oxyCODONE 5MG TAB PO PRN ×2 (05:46→10:00)
[2016-02-05] MEDS: SLF 3 ML SYR IV SCH ×3 (05:47→21:35)
[2016-02-05 06:42] LABS: SOURCE, BODY FLUID CREATININE PERITONEAL
[2016-02-05 08:00] VITALS: BP 138/64
[2016-02-05] MEDS: AZELASTINE 137MCG NASAL SPY 30 ML (ASTELIN) SCH ×2 (09:00→21:32)
[2016-02-05] MEDS: PANTOPRAZOLE 40MG INJ (PROTONIX) (C9113) IV SCH (09:02)
[2016-02-05] MEDS: HumaLOG INSULIN (NovoLOG) PER UNIT SC SCH ×4 (09:02→21:36)
[2016-02-05] MEDS: VITAMIN D 1,000 INTERNATIONAL UNITS TABLET PO SCH ×2 (09:03→21:33)
[2016-02-05] MEDS: ATORVASTATIN 20 MG TAB PO SCH (09:03)
[2016-02-05] MEDS: ASPIRIN 81 MG CHEW TABLET PO SCH (09:03)
[2016-02-05] MEDS: CARVedilol 6.25 MG TAB PO SCH ×2 (09:03→21:34)
[2016-02-05] MEDS: amLODIPine 10 MG TAB PO SCH (09:03)
[2016-02-05] MEDS ORDERED: MORPHINE 2 MG/ML 1ML SYRINGE IV PRN (09:30)
[2016-02-05 09:32] LABS: OSMOLALITY URINE 565 MOSM/KG (500-800)
[2016-02-05] MEDS: MIRALAX *UNIT DOSE* 17GM PACKET PO SCH (09:58)
[2016-02-05] MEDS: SENOKOT S TAB PO SCH ×2 (10:00→21:34)
--- NOTE | 2016-02-05 10:10 | REP ---
Clinical: Acute renal insufficiency Technique: Real time ansari scale ultrasound examination using curved array transducer. Findings: The kidneys are normal in reniform shape and demonstrate cortical atrophic change without hydronephrosis, nephrolithiasis, cystic or renal mass lesion. Incidental note is made of a right column of Fernando. No perinephric fluid collections are identified. Right kidney measures 13.1 x 6.5 x 6.1 cm. Left kidney measures 13.6 x 7.5 x 7.7 cm. The patient is status post cystectomy. Impression: Evidence for chronic renal disease. No hydronephrosis. Signed by Maxx Oliveira MD 02/05/2016 10:02 A
--- NOTE | 2016-02-05 10:27 | IPN ---
DATE: 02/05/2016 Time patient was seen was at 8:50. The patient has been seen and examined at the bedside. No acute events overnight. The patient complained of not having a bowel movement for the past few days, also some abdominal pain at the incisional site. In addition, kidney function has worsened. Dr. Nickerson from Nephrology was consulted. The patient denies any other current new complaints. No chest pain. No trouble breathing. No nausea, vomiting. No diarrhea. PHYSICAL EXAMINATION: VITAL SIGNS: Temperature 98.7, pulse 75, respirations 20, blood pressure 126/59, oxygen was saturating at 92% on room air. INTAKE/OUTPUT: Shows total in yesterday was 2406, total output was 2225 with a balance of positive 181. Patient's drainage total was 850. The patients JALIL drain since last night was about 160. GENERAL: The patient is morbidly obese elderly female who was alert, awake, oriented times three, does not appear to be in distress, sitting up comfortably in bed. HEENT: The patient has an enlarged neck and also a hein face; otherwise nontraumatic head. Extraocular motor was intact. Mucosa moist. NECK: Supple. No neck lymphadenopathy. CARDIOVASCULAR: Regular rate and rhythm. S1, S2. Difficult to auscultate due to body habitus. LUNGS: Clear to auscultation bilaterally. No wheezing, rales, or rhonchi. ABDOMEN: Multiple incisional sites at the abdomen and also urinary diversion bag was intact, produces minimal drainage at the time of interview. However, it appears to be nonbloody. The patient's JALIL drain was intact also, produces roughly 60 mL of serosanguineous fluid. SKIN: Warm and dry. NEUROLOGIC: Cranial nerves II-XII intact. No focal neurologic deficit. EXTREMITIES: No edema, clubbing or cyanosis. LABORATORY DATA: WBC is 7.6, hemoglobin 8.5, hematocrit 26.6 with a platelet count of 153, MCV 88.5. Sodium 138, potassium 4.4, chloride 105, bicarbonate 23, BUN 24, creatinine was elevated at 1.56, fasting glucose 332, calcium 8.1, phosphorous 3.1, albumin was low 2.5. The patient's urinalysis is pending. The patient's fluid creatinine was 1.4. The patient's Accu-Chek glucose last night was 308, 367. No new imaging. CURRENT MEDICATIONS: - Milk of Magnesia daily as needed - morphine sulfate 2 mg IV every 4 hours as needed - Senokot two tablets by mouth twice a day - MiraLAX one packet by mouth daily - insulin sliding scale - Levemir 30 units subcutaneously daily - heparin 5000 units subcutaneously every 8 hours - Levaquin 500 mg one tablet by mouth daily - oxycodone 10 mg one tablet by mouth every 4 hours as needed - aspirin 81 mg one tablet by mouth daily - Norvasc 10 mg one tablet by mouth daily - Lipitor 80 mg one tablet by mouth daily - Tylenol 650 mg one tablet by mouth every 8 hours - Coreg 6.25 mg one tablet by mouth twice a day - vitamin D 2000 units one tablet by mouth twice a day - hypoglycemic protocol with dextrose, glucose and glucagon. - Zofran 4 mg IV every 8 hours as needed - Protonix 40 mg IV ASSESSMENT AND PLAN: A 71-year-old female with a past medical history of coronary artery disease, hypertension, diabetes, hyperlipidemia, morbid obesity, came in for bladder cancer, status post radical cystectomy on 02/01/2016. Medical team has been consulted for medical management. 1. Bladder tumor, status post cystectomy on 02/01/2016. Will continue to follow urology recommendation regarding pain management and wound care. 2. Acute kidney injury with creatinine elevated at 1.56 this morning. Nephrology , Dr. Nickerson, has been consulted, and we appreciate his recommendations. He has recommended to discontinue Toradol and start the patient on morphine for pain control. Will continue to trend the patient's kidney functions, and we have ordered a renal ultrasound, urine lytes and will continue to monitor. 3. Coronary artery disease and hyperlipidemia. No active complaints. Continue aspirin and Lipitor. 4. Insulin-dependent type 2 diabetes. Continue insulin around 30 units subcutaneously daily. The patient was on 50 units subcutaneously at home. Continue insulin sliding scale and fingersticks. 5. Anemia. No signs of bleeding. Likely dilutional. Continue to monitor. 6. Suspicious of obstructive sleep apnea (ALEX) with morbid obesity. Will leave decision to primary care regarding outpatient sleep study. 7. Deep vein thrombosis (DVT) prophylaxis. On heparin 5000 units subcutaneously every 8 hours. DISPOSITION: Will continue to follow urology recommendation. We appreciate Dr. Nickerson's consultation and will continue medical management. The patient has been discussed with attending doctor, Dr. Alvarez. My preceptor for this patient encounter was Dr. Lashon Alvarez. The preceptor was physically present in the building during the encounter and was fully available. As needed, all aspects of the patient interview, examination, medical decision making process, and medical care plan development were reviewed and approved by the preceptor. The preceptor is aware and concurs with the plan as stated in the body of this note and will attest to such by his/her co-signature. I have both independently examined this patient as well as reviewed the note. I have discussed in detail with the resident the findings and plan of treatment as documented in the residents note. I will continue to follow the patient and offer further guidance to the patients care as necessary during this hospital stay. Lashon MERIDA
[2016-02-05 12:00] VITALS: BP 142/65
[2016-02-05 16:00] VITALS: BP 144/63
[2016-02-05 19:53] VITALS: BP 163/70
[2016-02-05] MEDS: MOM 30ML SUSPENSION UDC PO PRN (21:32)
[2016-02-05] MEDS: LEVEMIR (INSULIN DETEMIR) 1 UNITS/0.01ML SC SCH (21:33)
[2016-02-05 23:59] VITALS: BP 146/67
[2016-02-06 04:00] VITALS: BP 153/71
--- NOTE | 2016-02-06 04:51 | CR ---
DATE OF CONSULTATION: 02/05/2016 CONSULTATION REPORT FOR: Dr. Lashon Alvarez REASON FOR CONSULTATION: Management of acute kidney injury. CHIEF COMPLAINT: Patient was admitted this time for elective radical cystectomy. HISTORY OF PRESENT ILLNESS: Yolanda Ng is a 71-year-old female with past medical history of normal kidney function, multiple other comorbidities as mentioned below. She was recently diagnosed with bladder cancer. She was admitted for an elective radical cystectomy. She underwent robotic-assisted radical cystectomy plus total hysterectomy plus bilateral pelvic lymph node dissection plus bilateral salpingo-oophorectomy and creation of intraoperative ileal conduit urinary diversion on 02/01/2016. She had a creatinine of 1.05 on 02/02/2016. Her creatinine slowly bumped up to 1.56 today, and medical team called nephrology on consult for management of acute kidney injury. Patient was examined by me today at the bedside. She does not have any active complaints. Her pain was being optimized with IV ketorolac injections ever since she got the surgery done. I do not see any imaging with IV contrast being done on this patient. Patient still has a good urine output, and her urine output in the last 24 hours has been around two liters. PAST MEDICAL HISTORY: 1. Hypertension. 2. Coronary artery disease. 3. Diabetes mellitus type 2. 4. Hyperlipidemia. 5. Obstructive sleep apnea. 6. Recent diagnosis of bladder cancer. PAST SURGICAL HISTORY: 1. Status post cardiac catheterization in the past. 2. History of pilonidal cyst removal. 3. History of partial bladder tumor resection in the past. 4. Status post radical cystectomy on 02/01/2016. ALLERGIES: No known drug allergies. CURRENT MEDICATIONS: Patient's current inpatient medications include: - Tylenol as needed - amlodipine 10 mg daily - aspirin 81 mg daily - atorvastatin 80 mg daily - benazepril 40 mg by mouth daily, which was stopped today - Coreg 6.25 mg by mouth twice a day - Colace - heparin subcutaneous - insulin Levemir - insulin sliding-scale - ketorolac 15 mg IV every eight hours - Levaquin 500 mg by mouth daily - milk of magnesia as needed - oxycodone 10 mg by mouth every four hours as needed for severe pain - vitamin D FAMILY HISTORY: No significant family history of end-stage renal disease requiring hemodialysis. SOCIAL HISTORY: Patient denies any history of smoking, drug abuse, or alcohol abuse. REVIEW OF SYSTEMS: CONSTITUTIONAL: She denies any fever, chills, nausea, or vomiting. EYES: She denies any recent change in vision. ENT: She denies any ear discharge, sore throat, dysphagia, or odynophagia. PULMONARY: She denies any cough, shortness of breath, or wheezing. CARDIOVASCULAR: She denies any chest pain or palpitations. GASTROINTESTINAL: She denies any nausea or vomiting. She does report some pain in the abdomen at the surgical site. GENITOURINARY: She recently underwent hysterectomy and cystectomy, and she has ileal conduit. HEMATOLOGICAL/ONCOLOGICAL: History of bladder tumor. ENDOCRINE: History of diabetes. MUSCULOSKELETAL: She denies any muscle aches and pains. CENTRAL NERVOUS SYSTEM: She denies any paresthesias, history of cerebrovascular accident (CVA), or seizures. PSYCH: Denies any history of depression or anxiety. All other review of systems was negative. PHYSICAL EXAMINATION: VITAL SIGNS: Temperature is 99.8 degrees Fahrenheit, blood pressure is 144/63, pulse is 78, respiratory rate of 18, saturating 91% on room air. Intake and output: Urine output was 1.3 liters yesterday, 700 mL so far today since overnight. Weight in the bed scale is 90.1 kg. GENERAL: Patient is awake, alert, and oriented times three, sitting on the sofa in no apparent distress. HEAD AND NECK EXAM: Extraocular muscles are intact. Pupils equally round and reactive to light. Neck is supple. There is no jugular venous distention (JVD). CARDIOVASCULAR: S1, S2 regular rate. No murmur, rub, or gallop. RESPIRATORY: Chest is clear to auscultation bilaterally. Bilaterally equal air entry. No rales or rhonchi. ABDOMEN: Soft. Positive bowel sounds. Appropriately tender in the right lower quadrant surgical site. She has an ileal conduit in the right lower quadrant and urine in the bag is clear. EXTREMITIES: No clubbing or cyanosis. Pulses are 2+. CENTRAL NERVOUS SYSTEM: No focal neurological deficit. Power is 5/5 in all extremities. LAB REVIEW: CBC showed a WBC of 7.6, hemoglobin 8.5, platelets of 153. Urinalysis done today showed 1+ protein, 3+ leukocyte esterase, 3+ blood, RBCs were too numerous to count. Urine random sodium was 69, random potassium was 18.6, random chloride was 74, and creatinine was 73.4. BMP showed sodium 138, potassium 4.4, chloride 105, bicarbonate 23, BUN 24, creatinine 1.5, it was 0.8 yesterday, calcium is 8.1, phosphorus 3.1, albumin is 2.5. IMAGING: Renal ultrasound done today showed right kidney was 13.1 cm, left kidney was 13.6 cm. There was no hydronephrosis. There was no cyst or mass. ASSESSMENT: 71-year-old female with past medical history of hypertension, diabetes mellitus type 2, coronary artery disease, status post radical cystectomy and hysterectomy on 02/01/2016. Nephrology service was called for management of acute kidney injury. PLAN: 1. Acute kidney injury. I suspect acute kidney injury is most likely secondary to IV Toradol, which is being used for pain. I already stopped the Toradol. Continue as needed IV morphine or oral oxycodone for pain. Avoid nonsteroidal anti-inflammatory drugs (NSAIDS) at this time. I also agree with holding the benazepril at this time, which has already been stopped by the primary team. Patient does not need any IV fluid hydration at this time. She is able to take enough liquids orally. 2. Essential hypertension. Patient's blood pressure is acceptable at this time. Continue current dose of amlodipine 10 mg by mouth daily, Coreg 6.25 mg by mouth twice a day. Further recommendations to be given tomorrow if the blood pressure gets elevated. 3. Insulin-dependent diabetes mellitus. Continue current dose of insulin Levemir and sliding scale. Avoid giving metformin to this patient at this time. 4. Status post cystectomy and hysterectomy and ileal conduit formation. Patient is having good urine output in the ileal conduit. There is no evidence of hydronephrosis on the ultrasound. The rest of the management is as per the surgical team. Thank you for involving us in the care of this patient. We shall be happy to follow the patient with you tomorrow morning. Plan of care was already discussed with the medical sociologist. cc: Lashon Alvarez MD
[2016-02-06] MEDS: ACETAMINOPHEN 650MG ER TAB (TYLENOL ARTHRITIS) PO SCH ×3 (05:49→22:08)
[2016-02-06] MEDS: LevoFLOXacin 500 MG TABLET PO SCH (05:49)
[2016-02-06] MEDS: HEPARIN SOD (PORCINE) 5000 UNITS/ML VIAL SQ SCH ×3 (05:49→22:08)
[2016-02-06] MEDS: SLF 3 ML SYR IV SCH ×3 (06:00→22:10)
[2016-02-06 06:05] LABS: MEAN CORPUSCULAR HEMOGLOBIN 27.8 pg (27.0-33.0); MEAN CORPUSCULAR HGB CONC 29.6 g/dl (32.0-36.5); MEAN CORPUSCULAR VOLUME 94.1 fl (80.0-96.0); RED CELL DISTRIBUTION WIDTH 14.2 % (11.5-14.5); WHITE BLOOD COUNT 5.8 K/mm3 (4.0-10.0)
[2016-02-06 06:15] LABS: ALBUMIN 2.3 GM/DL (3.2-5.2); CALCIUM LEVEL 8.2 MG/DL (8.8-10.2); CREATININE FOR GFR 1.25 MG/DL (0.55-1.02); GLOMERULAR FILTRATION RATE 45.2 (>45); POTASSIUM SERUM 4.7 MEQ/L (3.5-5.1)
[2016-02-06 08:00] VITALS: BP 152/68
[2016-02-06] MEDS: MIRALAX *UNIT DOSE* 17GM PACKET PO SCH (08:31)
[2016-02-06] MEDS: ATORVASTATIN 20 MG TAB PO SCH (08:31)
[2016-02-06] MEDS: VITAMIN D 1,000 INTERNATIONAL UNITS TABLET PO SCH ×2 (08:32→22:09)
[2016-02-06] MEDS: CARVedilol 6.25 MG TAB PO SCH ×2 (08:32→22:09)
[2016-02-06] MEDS: oxyCODONE 5MG TAB PO PRN ×2 (08:33→21:52)
[2016-02-06] MEDS: amLODIPine 10 MG TAB PO SCH (08:33)
[2016-02-06] MEDS: SENOKOT S TAB PO SCH ×2 (08:33→22:09)
[2016-02-06] MEDS: ASPIRIN 81 MG CHEW TABLET PO SCH (08:33)
[2016-02-06] MEDS: HumaLOG INSULIN (NovoLOG) PER UNIT SC SCH ×4 (08:33→22:40)
[2016-02-06] MEDS: AZELASTINE 137MCG NASAL SPY 30 ML (ASTELIN) SCH ×2 (08:34→21:00)
[2016-02-06] MEDS ORDERED: BENAZEPRIL 20 MG TAB PO SCH (09:00)
[2016-02-06 12:00] VITALS: BP 150/65
[2016-02-06] MEDS: ISOSORBIDE MON. (IMDUR) 30 MG XR TAB PO SCH (13:08)
--- NOTE | 2016-02-06 13:58 | IPN ---
DATE OF SERVICE: 02/06/2016 The patient seen and examined. Denies any dyspnea, chest pain, pressure, discomfort. Denies any significant abdominal pain. Currently, feels comfortable. Currently, voiding. Temperature 97.8, pulse 76, respiration 18, blood pressure 150/62, pulse oximetry 97% on room air. LABORATORY: WBC 5.8, hemoglobin and hematocrit 8.4/28.3, platelets 153. Chemistry: Sodium 137, potassium 4.7, chloride 103, bicarbonate 24, BUN 22, creatinine 1.25 PHYSICAL EXAMINATION: GENERAL: The patient morbidly obese, elderly female, alert and oriented times three. In no acute distress. HEENT: Enlarged neck. Normocephalic, atraumatic. PULMONARY: Distant breath sounds. Bilaterally clear. No wheeze, rales, or rhonchi. CARDIAC: Regular rate and rhythm. Normal S1, S2. Distant heart sounds. ABDOMEN: Multiple incision sites in the abdomen. Urinary diversion bag intact. No significant tenderness. Obese. Positive bowel sounds. EXTREMITIES: No clubbing, cyanosis, or edema. ASSESSMENT AND PLAN: This is a 71-year-old female patient with underlying medical history of coronary artery disease, hypertension, type 2 diabetes, dyslipidemia, morbid obesity, admitted under urology service with bladder cancer status post robotic radical cystectomy on 02/01/2016. Medical team consulted for medical management. PROBLEMS: 1. Bladder cancer, status post cystectomy on 02/01/2016. Pain regimen and management as per urology. Wound care as per urology. 2. Acute kidney injury, likely secondary to Toradol. Nephrology, Dr. Nickerson, consulted. Toradol on hold. Angiotensin-converting enzyme (JAYLON) inhibitor on hold for the next few days. Followup BUN and creatinine. Urine studies appreciated. Kidney function currently improved. 3. Coronary artery disease and dyslipidemia. No active complaint. Continue aspirin and statin. 4. Insulin dependent type 2 diabetes. Levemir dosage has been adjusted. Continue mealtime insulin. Followup fingerstick. Adjust as needed. 5. Anemia. No signs of bleeding. Continue to monitor. 6. Possible history of obstructive sleep apnea with morbid obesity. The patient is not on continuous positive airway pressure (CPAP). Obstructive sleep apnea (ALEX) protocol. 7. Hypertension. Continue medication as ordered. The patient on Norvasc, Coreg. JAYLON inhibitor on hold, given elevated creatinine. Imdur has been added. Adjust medication as needed, as discussed with nephrology, will restart the patient's JAYLON inhibitor in 2-3 days. 8. Deep venous thrombosis (DVT) prophylaxis. Heparin subcutaneously. DISPOSITION PLANNING: Pending physical therapy (PT) and urology management.
[2016-02-06 16:00] VITALS: BP 138/63
[2016-02-06 20:00] VITALS: BP 138/68
[2016-02-06] MEDS ORDERED: LEVEMIR (INSULIN DETEMIR) 1 UNITS/0.01ML SC SCH (21:00)
[2016-02-07] VITALS (7 sets, daily range): BP systolic 110–165; BP diastolic 53–87
[2016-02-07 05:25] LABS: MEAN CORPUSCULAR HEMOGLOBIN 27.6 pg (27.0-33.0); MEAN CORPUSCULAR HGB CONC 30.3 g/dl (32.0-36.5); MEAN CORPUSCULAR VOLUME 90.8 fl (80.0-96.0); RED CELL DISTRIBUTION WIDTH 14.4 % (11.5-14.5); WHITE BLOOD COUNT 9.7 K/mm3 (4.0-10.0)
[2016-02-07 05:38] LABS: ALBUMIN 2.4 GM/DL (3.2-5.2); CALCIUM LEVEL 8.5 MG/DL (8.8-10.2); CREATININE FOR GFR 1.34 MG/DL (0.55-1.02); GLOMERULAR FILTRATION RATE 41.7 (>45); PHOSPHORUS LEVEL 3.7 MG/DL (2.5-4.9); POTASSIUM SERUM 4.6 MEQ/L (3.5-5.1)
[2016-02-07] MEDS: LevoFLOXacin 500 MG TABLET PO SCH (06:45)
[2016-02-07] MEDS: ACETAMINOPHEN 650MG ER TAB (TYLENOL ARTHRITIS) PO SCH (06:45)
[2016-02-07] MEDS: HEPARIN SOD (PORCINE) 5000 UNITS/ML VIAL SQ SCH ×3 (06:45→21:56)
[2016-02-07] MEDS: MOM 30ML SUSPENSION UDC PO PRN (06:45)
[2016-02-07] MEDS: SLF 3 ML SYR IV SCH ×3 (06:46→21:59)
[2016-02-07] MEDS: HumaLOG INSULIN (NovoLOG) PER UNIT SC SCH ×4 (07:45→22:06)
[2016-02-07] MEDS: ISOSORBIDE MON. (IMDUR) 30 MG XR TAB PO SCH (08:44)
[2016-02-07] MEDS: ASPIRIN 81 MG CHEW TABLET PO SCH (08:44)
[2016-02-07] MEDS: ATORVASTATIN 20 MG TAB PO SCH (08:44)
[2016-02-07] MEDS: MIRALAX *UNIT DOSE* 17GM PACKET PO SCH (08:44)
[2016-02-07] MEDS: VITAMIN D 1,000 INTERNATIONAL UNITS TABLET PO SCH ×2 (08:44→21:56)
[2016-02-07] MEDS: CARVedilol 6.25 MG TAB PO SCH ×2 (08:45→21:56)
[2016-02-07] MEDS: amLODIPine 10 MG TAB PO SCH (08:45)
[2016-02-07] MEDS: SENOKOT S TAB PO SCH ×2 (08:45→21:00)
[2016-02-07] MEDS: AZELASTINE 137MCG NASAL SPY 30 ML (ASTELIN) SCH ×2 (08:46→21:00)
[2016-02-07 09:22] LABS: MAGNESIUM LEVEL 2.4 MG/DL (1.8-2.4)
--- NOTE | 2016-02-07 09:29 | REP ---
Clinical: Fever and reduced breath sounds. Comparison: 12/20/2015. Findings: Examination is limited by portable technique which accentuates the pulmonary vasculature and interstitium. Mild pulmonary venous congestion cannot be excluded along with trace left basilar atelectasis. Mediastinum and cardiac silhouette are stable. No effusion. No pneumothorax. Skeletal structures intact. Impression: Cannot exclude trace left basilar atelectasis or mild vascular congestion. Signed by Maxx Oliveira MD 02/07/2016 09:21 A
[2016-02-07] MEDS ORDERED: ACETAMINOPHEN TAB 650MG DOSE (2X325MG) PO PRN (10:30)
[2016-02-07] MEDS ORDERED: ROXI1TAB2 PO (13:52)
[2016-02-07] MEDS ORDERED: LEVA500T PO (13:52)
[2016-02-07] MEDS: **hydrALAZINE HCL** 25 MG TAB PO SCH ×2 (14:00→22:00)
[2016-02-07] MEDS ORDERED: ISOS30TA4 PO (14:27)
[2016-02-07] MEDS ORDERED: HumaLOG INSULIN (NovoLOG) PER UNIT SC STA (14:39)
--- NOTE | 2016-02-07 20:22 | IPN ---
DATE: 02/06/2016 SUBJECTIVE: The patient was seen and examined at the bedside today. She feels much better. She was sitting on the sofa. Her kidney number is improving. REVIEW OF SYSTEMS: The patient denies any fevers, chills, rigors, headaches, nausea, vomiting, chest pain, shortness of breath. OBJECTIVE: VITAL SIGNS: Temperature is 98.8 degrees Fahrenheit, blood pressure is 158/62, pulse is 76, respiratory rate of 18, saturating 94% on room air. INTAKE AND OUTPUT: Urine output recorded as 1.6 liters yesterday, 900 mL so far today since overnight. PHYSICAL EXAMINATION: GENERAL: The patient is awake, alert, and oriented times three, sitting on the sofa in no apparent distress. HEAD/NECK: Extraocular muscles intact. Pupils equal, round, and reactive to light. Neck is supple. There is no jugular venous distention (JVD). CARDIOVASCULAR: S1, S2, regular rate. No murmur, rub, or gallop. RESPIRATORY: Chest is clear to auscultation bilaterally. Bilateral equal air entry. ABDOMEN: Soft. Positive bowel sounds. The patient has a right lower quadrant ileal conduit with orange-colored urine in the bag. EXTREMITIES: No clubbing or cyanosis. Pulses are 2+. CENTRAL NERVOUS SYSTEM ([employer]ECT): No focal neurological deficit. Power is 5/5 in all extremities. LABORATORY DATA: CBC showed a WBC 5.8, hemoglobin 8.4, platelets of 153. BMP shows sodium 137, potassium 4.7, chloride 103, bicarbonate 24, BUN 22, creatinine 1.25. It was 1.56 yesterday. Calcium 8.2, albumin 2.3. IMAGING: Renal ultrasound was done yesterday, and there was no evidence of renal disease or stenosis or hydronephrosis on the imaging. CURRENT MEDICATIONS: The patient's medications are all reviewed by me. There is no change in the medications as this time, as compared with yesterday. ASSESSMENT: A 71-year-old female with past medical history of hypertension, diabetes mellitus type 2, coronary artery disease, status post radical cystectomy and hysterectomy on 02/01/2016. Nephrology service following the patient for management of acute kidney injury. PLAN: 1. Acute kidney injury. This is most likely secondary to Toradol. Toradol was stopped yesterday. The patient's kidney function is improving. Avoid further use of non-steroidal anti-inflammatory drugs (NSAIDs), angiotension-converting enzyme (JAYLON) inhibitors, and intravenous (IV) contrast studies at this time until the kidney function comes back to normal. 2. Essential hypertension. The patient continues to be on amlodipine 10 mg by mouth daily, Coreg 6.25 mg by mouth twice a day. Her JAYLON inhibitors were stopped because of acute kidney injury (LEONARD). I see that she has already been given a small dose of benazepril 20 mg by mouth daily. If patient's renal function continues to improve by tomorrow, then JAYLON inhibitors can be restarted. 3. Status post cystectomy and hysterectomy, and ileal conduit formation. The patient is having good urine output; however, the urine is not clear yet. She is still having some slight hematuria. Otherwise, there is no hydronephrosis on the ultrasound. Rest of the management is as per surgical team. 4. Anemia. The patient's hemoglobin is 8.4 at this time. Management is as per primary team. If they want to give a unit of packed red blood cells (PRBCs), she can get a transfusion. No need of erythropoietin-stimulating agent (REZA) administration at this time. Plan of care was discussed with the hospitalist team.
[2016-02-07] MEDS ORDERED: LEVEMIR (INSULIN DETEMIR) 1 UNITS/0.01ML SC SCH (21:00)
--- NOTE | 2016-02-07 21:18 | IPN ---
DATE: 02/07/2016 TIME PATIENT WAS SEEN: This morning at 8:30. Patient has been seen and examined at bedside. Patient had a fever yesterday at 4 p.m. of 100.6, and her sugar does not appear to be controlled. This morning around 11:51, sugar was 500. Otherwise, patient denies any discomfort anywhere, denies any fevers or chills, denies any chest pain, total bed rest, abdominal pain, nausea, vomiting, diarrhea, or constipation. Denies any problem with her urine bag and denies any other current new complaints. PHYSICAL EXAMINATION: VITAL SIGNS: Temperature was 97.6, pulse 66, respirations 20, blood pressure 110/56, oxygen was saturating at 96% on 2 liters. GENERAL: Patient is a morbidly obese, elderly female who was alert, awake, oriented times three. Does not appear to be in distress. Resting comfortably in bed with the head elevated at 60 degree. HEENT: Atraumatic. Patient has a small face and very short neck. Mucous membranes moist. Neck supple. No neck lymphadenopathy. CARDIOVASCULAR: Regular rate and rhythm. S1, S2. Difficult to auscultate due to body habitus. LUNGS: Clear to auscultation bilaterally; however, breath sounds appear to be reduced due to body habitus. ABDOMEN: Positive bowel sounds. Soft, nontender, nondistended. No peritoneal signs. No ecchymosis. Incisions were dry, clean, and intact. Patient does have urine output bag at the right lower quadrant. Produces yellow-colored urine. Otherwise, the stoma looks intact. EXTREMITIES: No edema, clubbing, or cyanosis. SKIN: Warm and dry. NEUROLOGIC: Cranial nerves II-XII. No focal neurologic deficit. LABORATORY DATA: WBC 9.7. Hemoglobin 8.5, hematocrit 28.2 with a platelet count of 221. Sodium 136, potassium 4.6, chloride 101, bicarbonate 26, BUN 28, creatinine 1.34 , GFR 41.7, fasting glucose was 300. Calcium 8.5, phosphorus was 3.7, magnesium 2.4. Albumin 2.4. Patient had a repeat urinalysis today. Shows 2+ protein, 3+ glucose, 3+ blood, 2 + leukocyte esterase, 31 WBC, 137 RBC, and 1+ bacteria. Her Accu-Chek glucose was 334, 350, and 500. Urine culture times one is pending. Blood cultures times two are pending. There is a portable chest x-ray done this morning that shows cannot exclude trace left basilar atelectasis or mild vascular congestion. ASSESSMENT AND PLAN: A 71-year-old female with a past medical history coronary artery disease, hypertension, type 2 diabetes, hyperlipidemia, morbid obesity, admitted under urology service with gladder cancer status post robotic radical cystectomy on 02/01/2016. Medical team was consulted for medical management. 1. Bladder cancer status post radical cystectomy. Urology is on board. Pain management and wound management per urology. 2. Fever, possibly secondary to postsurgical etiologies, possibly secondary to atelectasis. Patient's chest x-ray this morning does show some atelectasis. Will continue to encourage spirometry. Patient has already been put on levofloxacin by urology. Will continue to monitor. Will wait for urine culture and will adjust antibiotic according to the urine culture. 3. Acute kidney injury, likely secondary to Toradol. Nephrology, Dr. Nickerson, has been consulted. Toradol has been on hold. Switched to morphine. Angiotensin-converting enzyme (JAYLON) has also been on hold. BUN and creatinine are improving. Kidney function has been improving. 4. Coronary artery disease and dyslipidemia. No active complaints. Continue aspirin and statin. 5. Insulin-dependent type 2 diabetes. Levemir dose has been adjusted, increased to 50 units; however, patient had another one-time episode of glucose in the 500s. Given 20 short-acting insulin. Will recheck glucose level in 2 hours. 6. Anemia. No signs of bleeding. Continue to monitor. 7. Possible history of sleep apnea and morbid obesity. Patient, however, is not on continuous positive airway pressure (CPAP). Will obstructive sleep apnea (ALEX ) protocol. 8. Hypertension. Continue medication as ordered, Norvasc, Coreg. JAYLON has been on hold due to creatinine. Imdur has been added. Adjust medication as needed. Discuss with nephrology. Restart JAYLON inhibitor in about 2 days, which is possibly tomorrow. 9. Deep vein thrombosis (DVT) prophylaxis, on heparin subcutaneous/ DISPOSITION: Pending physical therapy and urology management for discharge. Patient has been discussed with attending doctor, Dr. Alvarez. My preceptor for this patient encounter was Dr. Lashon Alvarez. The preceptor was physically present in the building during the encounter and was fully available as needed. All aspects of the patient interview, examination, medical decision making process, and medical care plan development were reviewed and approved by the preceptor. The preceptor is aware and concurs with the plan as stated in the body of this note and will attest to such by his/her co-signature. I have both independently examined this patient as well as reviewed the note. I have discussed in detail with the resident the findings and plan of treatment as documented in the residents note. I will continue to follow the patient and offer further guidance to the patients care as necessary during this hospital stay. Lashon MERIDA
[2016-02-08 05:02] VITALS: BP 152/65
[2016-02-08 05:36] LABS: BASO # 0.1 K/mm3 (0.0-0.2); BASO % 0.8 % (0.0-1.0); EOS # 0.1 K/mm3 (0.0-0.50); EOS % 1.1 % (0.0-3.0); LARGE UNSTAINED CELL # 0.4 K/mm3 (0.0-0.4); LARGE UNSTAINED CELL % 3.3 % (0.0-4.0); LYMPH # 2.8 K/mm3 (1.5-4.5); LYMPH % 22.7 % (24.0-44.0); MEAN CORPUSCULAR HEMOGLOBIN 27.8 pg (27.0-33.0); MEAN CORPUSCULAR HGB CONC 31.6 g/dl (32.0-36.5); MEAN CORPUSCULAR VOLUME 88.1 fl (80.0-96.0); MONO # 0.7 K/mm3 (0.0-0.8); MONO % 6.3 % (0.0-5.0); NEUTROPHILS % 65.7 % (36.0-66.0); PLATELET COUNT, AUTOMATED 273 k/mm3 (150-450); RED CELL DISTRIBUTION WIDTH 15.2 % (11.5-14.5); WHITE BLOOD COUNT 10.7 K/mm3 (4.0-10.0)
[2016-02-08 05:52] LABS: CALCIUM LEVEL 9.1 MG/DL (8.8-10.2); CREATININE FOR GFR 1.07 MG/DL (0.55-1.02); GLOMERULAR FILTRATION RATE 54.1 (>45); POTASSIUM SERUM 4.1 MEQ/L (3.5-5.1)
[2016-02-08] MEDS: **hydrALAZINE HCL** 25 MG TAB PO SCH (06:00)
[2016-02-08] MEDS: HEPARIN SOD (PORCINE) 5000 UNITS/ML VIAL SQ SCH (06:41)
[2016-02-08] MEDS: LevoFLOXacin 500 MG TABLET PO SCH (06:41)
[2016-02-08] MEDS: SLF 3 ML SYR IV SCH (06:41)
[2016-02-08 08:00] VITALS: BP 131/62
[2016-02-08] MEDS: SENOKOT S TAB PO SCH (08:32)
[2016-02-08] MEDS: HumaLOG INSULIN (NovoLOG) PER UNIT SC SCH ×2 (08:32→12:26)
[2016-02-08] MEDS: ATORVASTATIN 20 MG TAB PO SCH (08:32)
[2016-02-08 08:33] VITALS: BP 131/62
[2016-02-08] MEDS: amLODIPine 10 MG TAB PO SCH (08:33)
[2016-02-08] MEDS: VITAMIN D 1,000 INTERNATIONAL UNITS TABLET PO SCH (08:33)
[2016-02-08] MEDS: ASPIRIN 81 MG CHEW TABLET PO SCH (08:34)
[2016-02-08] MEDS: CARVedilol 6.25 MG TAB PO SCH (08:35)
[2016-02-08] MEDS: ISOSORBIDE MON. (IMDUR) 30 MG XR TAB PO SCH (08:35)
[2016-02-08] MEDS: AZELASTINE 137MCG NASAL SPY 30 ML (ASTELIN) SCH (08:39)
[2016-02-08] MEDS: MIRALAX *UNIT DOSE* 17GM PACKET PO SCH (08:39)
--- NOTE | 2016-02-08 09:47 | IPN ---
DATE OF SERVICE: 02/07/2016 SUBJECTIVE: The patient was seen and examined at the bedside today in the morning. She was sitting on the sofa. She does not have any active complaints. REVIEW OF SYSTEMS The patient denies any fevers, chills, rigors, headache, nausea, vomiting, chest pain, shortness of breath. However; the patient reports that she was told that she had some sort of infection and she has been started on antibiotics. The rest of the review of systems is negative. OBJECTIVE: VITAL SIGNS: Temperature this morning was 100.5 degrees Fahrenheit. Blood pressure 165/70, pulse 77, respiratory rate 18, saturating 92% on room air. Intake and output: Urine output recorded at 2.4 liters yesterday, 1350 mL today, weight in the bed scale 89.4 kg. PHYSICAL EXAMINATION: GENERAL: The patient is a awake, alert, oriented times three, sitting on the sofa, not in distress. HEAD/NECK: Extraocular muscles intact. Pupils equal, round, reactive to light. Neck is supple. There is no jugular venous distention (JVD). CARDIOVASCULAR: S1, S2, regular rate, no murmurs, rubs, gallops. RESPIRATORY: Chest is clear to auscultation bilaterally. Bilateral equal air entry. NO rales or rhonchi. ABDOMEN: Soft, positive bowel sounds. The patient has a right lower quadrant ileal conduit with some orange colored urine in the bag. EXTREMITIES: No clubbing or cyanosis. Pulses are 2+. CENTRAL NERVOUS SYSTEM (AUTOMOBILE ACCESSORIES SALESPERSON): No focal neurologic deficits. Power is 5/5 in all extremities. LAB REVIEW: CBC showed a WBC 9.7, hemoglobin 8.5, platelets 211. Urinalysis showed 2+ protein, negative nitrites, 2+ leukocyte esterase with 31 wbc's, and 137 rbc's. BMP showed sodium 136, potassium 4.6, chloride 101, bicarbonate 26, BUN 28, creatinine 1.34. It is slightly higher than yesterday, it was 1.25 yesterday. Calcium is 8.5, magnesium 2.4. Microbiology: Urine culture and blood cultures are pending. IMAGING: A chest x-ray done this morning showed left basilar atelectasis or mild vascular congestion. CURRENT MEDICATIONS: The patient's medications are all reviewed by me. Pertinent changes in the medications include: - yury inhibitors were stopped - started on hydralazine 25 mg by mouth every 8 hours with holding parameters - continues to be Levaquin 500 mg by mouth daily ASSESSMENT: 71-year-old female with past medical history of hypertension, diabetes mellitus type 2, coronary artery disease, status post radical cystectomy and hysterectomy for carcinoma of the bladder. Nephrology service is following the patient for management of acute kidney injury. PLAN: 1. Acute kidney injury. This is most likely secondary to Toradol. Toradol was stopped two days ago. The patient's kidney function was improving but the patient was started on YURY inhibitors again yesterday and that is why I see a slight bump in the creatinine. Yury inhibitors and angiotensin receptor blockers should be held for now until the kidney function improves. The patient has been started on hydralazine for hypertension while the YURY and ARBs are on hold. 2. Essential hypertension. The patient's blood pressure was still high. We are not using YURY or ARBs at this time because of acute kidney injury (LEONARD). I have added hydralazine 25 mg by mouth every 8 hours and hold it if blood pressure is less than 160. 3. Status post cystectomy and hysterectomy, and ileal conduit formation. The patient has a good urine output; however, the urine is still not clear yet. The rest of the management is as per the urology service. 4. Fever spikes. The patient is currently on Levaquin. Cultures have been sent. Continue the current dose of antibiotics at this time. 5. Anemia. The patient's hemoglobin is stable at around 8.5. Continue to monitor for now, no need for blood transfusion at this time.
--- NOTE | 2016-02-08 10:14 | DSES ---
DATE OF ADMISSION: 02/01/2016 DATE OF DISCHARGE: 02/08/2016 ADMISSION DIAGNOSIS: Bladder neoplasm. DISCHARGE DIAGNOSIS: Bladder neoplasm. SURGERY PERFORMED: Robotic-assisted radical cystectomy, plus total hysterectomy, plus bilateral salpingo-oophorectomy, plus bilateral extended pelvic lymph dissections, plus intracorporeal urinary diversion ileal conduit. SURGEON: Juvenal Burnett MD CEMETERY WARDEN: Caridad Verduzco NP ADMITTING SURGEON: Juvenal Burnett MD DISCHARGE SURGEON: Juvenal Burnett MD HISTORY OF PRESENT ILLNESS: This is a 71-year-old female patient with a T1G3 bladder tumor multifocal in the bladder. For this reason, she has consented for a robotic-assisted radical cystectomy, plus total hysterectomy, plus bilateral salpingo-oophorectomy, plus bilateral extended pelvic lymph dissections, plus intracorporeal urinary diversion. The patient had this surgery done on 02/01/2016. After this, she was admitted to the hospital. HOSPITALIZATION COURSE: The patient did very well. By postoperative day #1, we took out the nasogastric (NG) tube since it was not putting out anything. She was placed to clear sips. We consulted Hospitalist Service for Diabetes and Glucose Control, history of CAD and Hypertension. By postoperative day #2, she was tolerating clear liquids. Her pain was under control with Tylenol and Toradol. By postoperative day #3, she was ambulating very well. Her pain was under control with Toradol and Tylenol, and we added oxycodone 10 mg every 4 hours as needed for pain. She was tolerating clear liquids. She was passing gas. By postoperative day #4, the patient actually was ambulating very well. Her creatinine went up to 1.56. We ordered renal ultrasound, which actually showed no hydronephrosis. We thought that this was due to the Toradol we were giving her for pain. For this reason, we discontinued the Toradol. By postoperative day #5, her creatinine went down to 1.25. Her potassium was 4.7, sodium 137 and her white blood count actually went down also to 5.8. By postoperative day #6, the patient had a Feroz-Anderson (J-P) creatinine level, which was same as the creatinine level in the serum. For this reason, we discontinued the J-P drain. The urostomy bag was putting out clear urine. She has stents on both kidneys. She was ambulating very well. Pain was controlled with oral pain medication oxycodone and Tylenol. She did not require morphine. Her white blood count on postoperative day #6 was 9.7, hemoglobin of 8.5 and her BUN was 1.3. She was tolerating a regular diet, passing gas and had a bowel movement. She had a temperature of 100.5 about 24 hours ago. For this reason had ordered urine cultures from the urostomy bag and blood cultures. She is tolerating a regular diet, passing gas, having bowel movements. No abdominal pain at all. Her Glucose level on Acucheck was 500 on Post op #6. For this reason, we decided to keep her one more day. On Posto[perative #7. Her Glucose levels were back to her normal baseline around 200's. She was afebrile for more than 24 hours. She felt, much better, had regular bowel movements, no pain, and was eating diabetic diet. She was ambulating well by herself. The pain is well controlled with oral pain medication. For this reason, we decided to send her home on 02/08/16, with Levaquin 500mg once a day, and oxycodone for pain, diabetic 2,200 kcal diet, and no heavy weightlifting above 20 pounds. She has to change her urostomy bags every 4-5 days if needed. She will followup us in 1 week. The preliminary blood cultures came back negative. We will follow them. MAGNOLIA
--- NOTE | 2016-02-08 10:44 | IPN ---
DATE OF SERVICE: 02/08/2016 ATTENDING DOCTOR: Dr. Tesfaye Alvarez TIME THE PATIENT WAS SEEN: Was this morning at 9:05. The patient has been seen and examined at bedside. No acute events overnight. The patient continues to have an elevated temperature of 100.6 yesterday at 6 p.m. Otherwise, the patient denies any fevers or chills, any chest pain, trouble breathing, abdominal pains, nausea, vomiting, diarrhea, or constipation. Denies any problem with her urine output in the urine bag. Denies any other current new complaints. PHYSICAL EXAMINATION: VITAL SIGNS: Temperature was 98.6, pulse 64, respiration 20, blood pressure 131/62, oxygen was saturating at 94% on room air. GENERAL: The patient is a morbidly obese elderly female who was alert, awake, oriented times three. Does not appear to be in distress. Resting comfortably in her chair with head elevated at 60 degrees. HEENT: Normocephalic, atraumatic. Extraocular motor intact. Mucous moist. Neck supple. No neck lymphadenopathy. CARDIOVASCULAR: Regular rate and rhythm. Difficult to auscultate due to body habitus. LUNGS: Clear to auscultation bilaterally. No wheeze, rales, or rhonchi. ABDOMEN: Positive bowel sounds. Soft, mildly tender to palpation around the incision sites. Otherwise, the urine bag produces normal urine, which was nonbloody. EXTREMITIES: No edema, clubbing, or cyanosis. SKIN: Warm and dry. NEUROLOGIC: Cranial nerves II-XII intact. No focal neurologic deficit. LABORATORIES: WBC 10.7, hemoglobin 8.9, hematocrit 28.1, with a platelet count of 273, MCV of 88.1. Sodium 138, potassium 4.0, chloride 102, bicarbonate 28, BUN 24, creatinine 1.07 , GFR 54.1, fasting glucose 264 improved compared to day prior, calcium 9.1. Accu-Chek glucose from yesterday was 500, 435, 315, and 274. The patient's urine culture is pending. Blood culture times two shows no growth. No new imaging. ASSESSMENT AND PLAN: A 71-year-old female with a past medical history of coronary artery disease, hypertension, hyperlipidemia, type 2 diabetes insulin-dependent, morbid obesity, admitted under urology service with gallbladder cancer status post robotic radical cystectomy on 02/01/2016. Medical team was consulted for medical management. 1. Bladder cancer, status post radical cystectomy. Urology is on board. Pain management and wound management per urology. 2. Acute kidney injury secondary to Toradol use. Nephrology has been consulted. We appreciate Dr. Nickerson's help. Toradol has been on hold. Switched to morphine. Angiotensin-converting enzyme (JAYLON) has been on hold, as well. May continue after the patient's renal function returns to normal. BUN and creatinine are improving. 3. Fever, possibly secondary to postsurgical etiologies, possibly secondary to atelectasis. Chest x-ray yesterday morning does show atelectasis. Continue incentive spirometry, and the patient has already been placed on levofloxacin by urology. Will continue. 4. Coronary artery disease and dyslipidemia. No active complaints. Continue aspirin and Plavix. 5. Uncontrolled insulin-dependent type 2 diabetes. Levemir dose has been increased to 50 units yesterday, and the patient's glucose continue appears to be elevated, possibly reactive secondary to surgery. Will continue to monitor the patient. 6. Anemia. No signs of bleeding. Continue to monitor. 7. Possible history of sleep apnea and also morbid obesity. The patient is not on continuous positive airway pressure (CPAP). Will continue obstructive sleep apnea protocol. May consider outpatient sleep apnea workup. 8. Hypertension. Continue Norvasc, Coreg, and JAYLON has been on hold. Imdur has been added. Will restart an JAYLON inhibitor possibly tomorrow if the patient continues to stay here. 9. Deep vein thrombosis (DVT) prophylaxis. Heparin subcutaneous. DISPOSITION: Pending physical therapy clearance. Otherwise, will continue to follow while the patient is in the hospital. The patient has been discussed with attending doctor, Dr. Alvarez. My preceptor for this patient encounter was Dr. Lashon Alvarez. The preceptor was physically present in the building during the encounter and was fully available as needed. All aspects of the patient interview, examination, medical decision making process, and medical care plan development were reviewed and approved by the preceptor. The preceptor is aware and concurs with the plan as stated in the body of this note and will attest to such by his/her co-signature. I have both independently examined this patient as well as reviewed the note. I have discussed in detail with the resident the findings and plan of treatment as documented in the residents note. I will continue to follow the patient and offer further guidance to the patients care as necessary during this hospital stay. Lashon MERIDA
[2016-02-08 11:45] VITALS: BP 118/57
--- NOTE | 2016-02-09 04:30 | IPN ---
DATE OF SERVICE: 02/08/2016 SUBJECTIVE: Patient was seen and examined at the bedside today in the morning. She denies any active complaints. Her blood pressure is stable at this time. She is not requiring hydralazine tablets. Her renal function is getting better. REVIEW OF SYSTEMS: Patient denies any fevers, chills, rigors, headache, nausea, vomiting, chest pain, shortness of breath. Rest of review of systems is negative. OBJECTIVE: VITAL SIGNS: Temperature is 97.9 degrees Fahrenheit, blood pressure 118/57, pulse 62, respiratory rate 18, saturating 96% on room air. INTAKE AND OUTPUT: Urine output recorded as 1.3 liters yesterday, 1.4 liters so far today since overnight. PHYSICAL EXAMINATION: GENERAL: Patient is a awake, alert, oriented times three, sitting on the sofa, no apparent distress. HEAD AND NECK EXAMINATION: Extraocular muscles intact. Pupils equally round and reactive to light. Neck is supple. There is no jugular venous distention (JVD). CARDIOVASCULAR: S1, S2, regular rate, no murmurs, rubs, gallops. RESPIRATORY: Chest is clear to auscultation bilaterally. Bilateral equal air entry. No rales or rhonchi. ABDOMEN: Soft, positive bowel sounds. Patient has a right lower quadrant ileal conduit with slightly cloudy urine in the bag. EXTREMITIES: No clubbing or cyanosis. Pulses are 2+. CENTRAL NERVOUS SYSTEM (FAMILY SERVICES MANAGER): No focal neurologic deficits. Power is 5/5 in all extremities. LABORATORY REVIEW: CBC showed a WBC 10.7, hemoglobin 8.9, platelets are 273. BMP showed sodium 138, potassium 4.1, chloride 102, bicarbonate 28, BUN 24, creatinine 1.07, which is better than yesterday. Calcium is 9.1. CURRENT MEDICATIONS: Patient's medications were all reviewed by me. She was started on hydralazine with holding parameters, but she did not require any hydralazine dosage. I see the primary team has stopped the hydralazine at this time. ASSESSMENT: 71-year-old female with past medical history of hypertension, diabetes mellitus type 2, coronary artery disease, status post radical cystectomy and hysterectomy for carcinoma of the bladder. Nephrology service is following the patient for management of acute kidney injury. PLAN: 1. Acute kidney injury. It was most likely secondary to Toradol and angiotensin-converting enzyme (JAYLON) inhibitors. Both of them have been stopped. Renal function is coming back towards normal. 2. Essential hypertension. Continue to hold JAYLON inhibitors and ARBs. Blood pressure is acceptable at this time. If needed, JAYLON inhibitors can be started as outpatient. 3. Status post cystectomy and hysterectomy. Patient has an ileal conduit at this time. Urine is clearing. Rest of the management is as per primary team. 4. Fever spikes. Patient is on Levaquin. She did not have any more fever spikes in the last 24 hours. Okay to continue the Levaquin at this time. 5. Discharge planning. The patient's renal function is improving. It is okay to discharge the patient from nephrology standpoint. Nephrology will sign off at this moment. Please call nephrology service as needed in future for help in the management of this patient.
== END 2016-02-08 15:10 | disposition home health service (06) | DRG 654 ==
LOC: M OR 02-01 06:00 → M PCU 02-01 18:10
PROVIDERS: ADMIT Urology; ATTEND Urology
PROC: 0UT94ZZ Resection of Uterus, Percutaneous Endoscopic Approach (ICD-10-PCS; 2016-02-01)
PROC: 0UT24ZZ Resection of Bilateral Ovaries, Percutaneous Endoscopic Approach (ICD-10-PCS; 2016-02-01)
PROC: 0UT74ZZ Resection of Bilateral Fallopian Tubes, Percutaneous Endoscopic Approach (ICD-10-PCS; 2016-02-01)
PROC: 07BC4ZX Excision of Pelvis Lymphatic, Percutaneous Endoscopic Approach, Diagnostic (ICD-10-PCS; 2016-02-01)
PROC: 0UQG4ZZ Repair Vagina, Percutaneous Endoscopic Approach (ICD-10-PCS; 2016-02-01)
PROC: 0T1 Urinary System, Bypass (ICD-10-PCS; 2016-02-01)
PROC: 8E0W4CZ Robotic Assisted Procedure of Trunk Region, Percutaneous Endoscopic Approach (ICD-10-PCS; 2016-02-01)
PROC: 0TTB4ZZ Resection of Bladder, Percutaneous Endoscopic Approach (ICD-10-PCS; principal; 2016-02-01 07:30)
DX: C67.8 Malignant neoplasm of overlapping sites of bladder (principal); N17.9 Acute kidney failure, unspecified; J98.11 Atelectasis; I10 Essential (primary) hypertension; E11.65 Type 2 diabetes mellitus with hyperglycemia; I25.10 Atherosclerotic heart disease of native coronary artery without angina pectoris; T44.5X5A Adverse effect of predominantly beta-adrenoreceptor agonists, initial encounter; E78.5 Hyperlipidemia, unspecified; G47.33 Obstructive sleep apnea (adult) (pediatric); E66.01 Morbid (severe) obesity due to excess calories; D64.9 Anemia, unspecified; T39.395A Adverse effect of other nonsteroidal anti-inflammatory drugs [NSAID], initial encounter; Z68.36 Body mass index [BMI] 36.0-36.9, adult; Z95.5 Presence of coronary angioplasty implant and graft; Z79.82 Long term (current) use of aspirin; Z79.84 Long term (current) use of oral hypoglycemic drugs; Z79.4 Long term (current) use of insulin; Z79.899 Other long term (current) drug therapy

== ENCOUNTER → 2016-02-28 | Outpatient (REF) | payer OTHER ==
[~2016-02-28] MED LIST changes: +ACTO30TA7 PO; +ISOS30TA4 PO; +LEVA500T PO; +NITR4TASL SL; +ROXI1TAB2 PO
[2016-02-28 15:51] LABS: ANION GAP 7 MEQ/L (8-16); BLOOD UREA NITROGEN 24 MG/DL (7-18); CARBON DIOXIDE LEVEL 30 MEQ/L (21-32); CHLORIDE LEVEL 107 MEQ/L (98-107); CREATININE FOR GFR 0.91 MG/DL (0.55-1.02); GLOMERULAR FILTRATION RATE > 60.0 (>45); GLUCOSE, FASTING 219 MG/DL (80-110); POTASSIUM SERUM 4.6 MEQ/L (3.5-5.1); SODIUM LEVEL 144 MEQ/L (136-145)
[2016-02-28 15:55] LABS: MEAN CORPUSCULAR HEMOGLOBIN 25.7 pg (27.0-33.0); MEAN CORPUSCULAR HGB CONC 29.3 g/dl (32.0-36.5); MEAN CORPUSCULAR VOLUME 87.7 fl (80.0-96.0); RED CELL DISTRIBUTION WIDTH 17.4 % (11.5-14.5); WHITE BLOOD COUNT 7.6 K/mm3 (4.0-10.0)
== END | disposition home or self-care (01) ==
LOC: M LABDRAW1 15:15
PROVIDERS: ATTEND Urology
DX: C67.2 Malignant neoplasm of lateral wall of bladder (principal)

== ENCOUNTER → 2016-06-20 | Outpatient (REF) | payer OTHER ==
[2016-06-20 11:46] LABS: MEAN CORPUSCULAR HEMOGLOBIN 25.7 pg (27.0-33.0); MEAN CORPUSCULAR HGB CONC 30.4 g/dl (32.0-36.5); MEAN CORPUSCULAR VOLUME 84.5 fl (80.0-96.0); RED CELL DISTRIBUTION WIDTH 15.8 % (11.5-14.5); WHITE BLOOD COUNT 5.2 K/mm3 (4.0-10.0)
[2016-06-20 12:20] LABS: ALBUMIN 3.4 GM/DL (3.2-5.2); ALBUMIN/GLOBULIN RATIO 0.85 (1.00-1.93); ALKALINE PHOSPHATASE 94 U/L (45-117); ALT/SGPT 46 U/L (12-78); ANION GAP 6 MEQ/L (8-16); AST/SGOT 29 U/L (15-37); BILIRUBIN,TOTAL 0.4 MG/DL (0.2-1.0); BLOOD UREA NITROGEN 28 MG/DL (7-18); CALCIUM LEVEL 9.1 MG/DL (8.8-10.2); CARBON DIOXIDE LEVEL 30 MEQ/L (21-32); CHLORIDE LEVEL 106 MEQ/L (98-107); CREATININE FOR GFR 0.79 MG/DL (0.55-1.02); GLOMERULAR FILTRATION RATE > 60.0 (>45); GLUCOSE, FASTING 235 MG/DL (80-110); POTASSIUM SERUM 4.1 MEQ/L (3.5-5.1); SODIUM LEVEL 142 MEQ/L (136-145); TOTAL PROTEIN 7.4 GM/DL (6.4-8.2)
== END ==
LOC: M LABDRAW1 11:14
PROVIDERS: ATTEND Urology
DX: Z98.890 Other specified postprocedural states (principal); Z79.899 Other long term (current) drug therapy

== ENCOUNTER → 2016-06-27 | Outpatient (REF) | payer OTHER ==
[2016-06-27 16:44] LABS: ANION GAP 8 MEQ/L (8-16); BLOOD UREA NITROGEN 32 MG/DL (7-18); CALCIUM LEVEL 8.5 MG/DL (8.8-10.2); CARBON DIOXIDE LEVEL 30 MEQ/L (21-32); CHLORIDE LEVEL 102 MEQ/L (98-107); GLOMERULAR FILTRATION RATE > 60.0 (>45); GLUCOSE, FASTING 353 MG/DL (80-110); POTASSIUM SERUM 4.8 MEQ/L (3.5-5.1); SODIUM LEVEL 140 MEQ/L (136-145)
== END ==
LOC: M LABDRAW1 15:36
PROVIDERS: ATTEND Family Medicine
DX: R60.9 Edema, unspecified (principal)

== ENCOUNTER → 2016-07-13 | Outpatient (REF) | payer OTHER ==
[2016-07-13 19:36] LABS: CALCIUM LEVEL 9.1 MG/DL (8.8-10.2); GLOMERULAR FILTRATION RATE 58.5 (>45); POTASSIUM SERUM 4.4 MEQ/L (3.5-5.1)
== END ==
LOC: M LABDRAW1 16:56
PROVIDERS: ATTEND Physician Assistant Medical
DX: E11.65 Type 2 diabetes mellitus with hyperglycemia (principal); T81.4XXA Infection following a procedure, initial encounter

== ENCOUNTER → 2016-09-19 | Outpatient (REF) | payer OTHER ==
[~2016-09-19] MED LIST changes: +ACTO30TA15 PO; -ACTO30TA7 PO; +ASPI-161 PO; -ASPI1TAB24 PO; -ATOR1TAB18 PO; -ATOR40TA PO; +ATOR40TA75 PO; +ATOR80TA59 PO; -BENA40TA2 PO; +BENA40TA7 PO; +FURO20TA2 PO; +GLIP1TAB49 PO; +LEVA1TAB2 PO; -LEVA500T PO; +LYRI150C PO; +METF500T13 PO; +TIZA2CAP3 PO
[2016-09-19 16:27] LABS: ALBUMIN 3.3 GM/DL (3.2-5.2); ALBUMIN/GLOBULIN RATIO 0.77 (1.00-1.93); BILIRUBIN,TOTAL 0.4 MG/DL (0.2-1.0); CALCIUM LEVEL 9.1 MG/DL (8.8-10.2); CREATININE FOR GFR 1.03 MG/DL (0.55-1.02); GLOMERULAR FILTRATION RATE 56.6 (>45); POTASSIUM SERUM 4.7 MEQ/L (3.5-5.1); TOTAL PROTEIN 7.6 GM/DL (6.4-8.2)
[2016-09-19 17:01] LABS: MEAN CORPUSCULAR HEMOGLOBIN 26.8 pg (27.0-33.0); MEAN CORPUSCULAR HGB CONC 31.2 g/dl (32.0-36.5); MEAN CORPUSCULAR VOLUME 86.1 fl (80.0-96.0); RED CELL DISTRIBUTION WIDTH 16.6 % (11.5-14.5); WHITE BLOOD COUNT 5.5 K/mm3 (4.0-10.0)
== END ==
LOC: M SMT 15:42
PROVIDERS: ATTEND Urology
DX: C67.2 Malignant neoplasm of lateral wall of bladder (principal)

== ENCOUNTER → 2016-10-26 | Outpatient (REF) | payer OTHER | LOC: M LABDRAW1 10:38 | PROVIDERS: ATTEND Internal Medicine Endocrinology, Diabetes & Metabolism | DX: E11.65 Type 2 diabetes mellitus with hyperglycemia (principal) ==

== ENCOUNTER → 2016-11-28 | Outpatient (REF) | payer OTHER | LOC: M LABDRAW1 11:46 | PROVIDERS: ATTEND Internal Medicine Endocrinology, Diabetes & Metabolism | DX: E11.65 Type 2 diabetes mellitus with hyperglycemia (principal) ==

== ENCOUNTER → 2016-12-15 | Outpatient (CLI) | payer OTHER ==
[2016-12-15 12:30] LABS: ANION GAP 4 MEQ/L (8-16); BLOOD UREA NITROGEN 33 MG/DL (7-18); CARBON DIOXIDE LEVEL 33 MEQ/L (21-32); CHLORIDE LEVEL 102 MEQ/L (98-107); CREATININE FOR GFR 0.84 MG/DL (0.55-1.02); GLOMERULAR FILTRATION RATE > 60.0 (>45); GLUCOSE, FASTING 279 MG/DL (80-110); POTASSIUM SERUM 3.8 MEQ/L (3.5-5.1); SODIUM LEVEL 139 MEQ/L (136-145)
== END ==
LOC: M LAB 11:08
PROVIDERS: ATTEND Family Medicine
DX: E11.9 Type 2 diabetes mellitus without complications (principal)

== ENCOUNTER → 2017-01-03 | Outpatient (REF) | payer OTHER ==
[2017-01-03 17:34] LABS: CALCIUM LEVEL 9.1 MG/DL (8.8-10.2); CREATININE FOR GFR 1.01 MG/DL (0.55-1.02); GLOMERULAR FILTRATION RATE 57.9 (>45); POTASSIUM SERUM 4.4 MEQ/L (3.5-5.1)
== END ==
LOC: M LABDRAW1 15:12
PROVIDERS: ATTEND Internal Medicine Endocrinology, Diabetes & Metabolism
DX: E11.65 Type 2 diabetes mellitus with hyperglycemia (principal)

== ENCOUNTER → 2017-01-08 | Outpatient (CLI) | payer OTHER ==
[~2017-01-08] MED LIST changes: +ISOVUE-370 76% 100ML VIAL (Q9967) As Ordered ONE
--- NOTE | 2017-01-11 12:23 | REP ---
CT ABDOMEN WITHOUT AND WITH CONTRAST: 01/08/2017 CLINICAL HISTORY: [place] syndrome, unspecified. TECHNIQUE: Noncontrast images through the abdomen followed by bolus of 100 mL as [id number] with equilibrium and delayed phase imaging performed. COMPARISON: Abdomen/pelvis CT without with contrast 11/04/2015. FINDINGS: Lung bases grossly clear. Heart is not enlarged. There is no pericardial thickening or effusion. Some coronary artery calcifications are noted. The descending thoracic and upper abdominal aorta show calcifications. There is no hiatal hernia. Fatty infiltration of the liver is noted. Liver is enlarged with a 20 cm vertical diameter in the midclavicular line. The left hepatic lobe is also enlarged. Liver has somewhat lobulated margins. Gallbladder shows a dependent calcified stone. No splenomegaly, focal hepatic or splenic lesion, intrahepatic biliary dilatation, nor adjacent ascites. Right adrenal gland is normal. The left adrenal gland shows a 12 x 9 [address] nodule[address] It has CT attenuation values of -1 HU on the precontrast images and 13.8 on the postcontrast image equilibrium phase. The kidneys show no stone, mass, cyst, or hydronephrosis. There is no perinephric fluid. I see no hydroureter or ureteral stone in the distal course of the ureters. The visible colon and small bowel loops in the upper abdomen are unremarkable. The aorta has calcifications without aneurysm. No periaortic or mesenteric adenopathy. Pancreas grossly intact. IMPRESSION: 1. Right adrenal gland is normal and the left adrenal gland shows a 12 x 9 mm hypodense nodule at the junction of the right and left limbs. It is -1 HU on precontrast. On contrast imaging, it enhances to 13-14 HU on the postcontrast images. No other nodule, adenopathy, ascites, or retroperitoneal mass. 2. Hepatomegaly, fatty liver change, and lobulated contours with large hepatic lobe, suggesting chronic liver disease. No splenomegaly. One calcified gallstone dependent gallbladder. 3. Atherosclerotic calcification of the aorta. No other significant finding. Signed by Mitchel Bryant MD 01/11/2017 08:34 P
== END ==
LOC: M RAD 12:46
PROVIDERS: ATTEND Internal Medicine Endocrinology, Diabetes & Metabolism
DX: E24.9 Cushing's syndrome, unspecified (principal)
CPT/HCPCS: 74170; Q9967

== ENCOUNTER → 2017-01-15 | Outpatient (REF) | payer OTHER ==
[~2017-01-15] MED LIST changes: -ISOVUE-370 76% 100ML VIAL (Q9967) As Ordered ONE
[2017-01-15 19:39] LABS: MEAN CORPUSCULAR HEMOGLOBIN 26.4 pg (27.0-33.0); MEAN CORPUSCULAR VOLUME 87.8 fl (80.0-96.0); PLATELET COUNT, AUTOMATED 196 10^3/uL (150-450); WHITE BLOOD COUNT 5.5 10^3/uL (4.0-10.0)
[2017-01-15 19:56] LABS: CALCIUM LEVEL 9.1 MG/DL (8.8-10.2); CREATININE FOR GFR 1.03 MG/DL (0.55-1.02); GLOMERULAR FILTRATION RATE 56.6 (>45); POTASSIUM SERUM 4.4 MEQ/L (3.5-5.1)
== END ==
LOC: M LABDRAW1 19:11
PROVIDERS: ATTEND Urology
DX: C67.8 Malignant neoplasm of overlapping sites of bladder (principal)

== ENCOUNTER → 2017-02-03 | Outpatient (REF) | payer OTHER | LOC: M LAB REF 21:49 | DX: J02.9 Acute pharyngitis, unspecified (principal) | CPT/HCPCS: 87430 ==

== ENCOUNTER → 2017-02-08 | Outpatient (REF) | payer OTHER ==
[2017-02-08 15:50] LABS: HEMATOCRIT 37.4 % (36.0-47.0); HEMOGLOBIN 11.2 g/dl (12.0-16.0); MEAN CORPUSCULAR HEMOGLOBIN 26.3 pg (27.0-33.0); MEAN CORPUSCULAR HGB CONC 29.9 g/dl (32.0-36.5); MEAN CORPUSCULAR VOLUME 87.8 fl (80.0-96.0); PLATELET COUNT, AUTOMATED 202 10^3/uL (150-450); RED BLOOD COUNT 4.26 10^6/uL (4.00-5.40); RED CELL DISTRIBUTION WIDTH 15.8 % (11.5-14.5); WHITE BLOOD COUNT 5.5 10^3/uL (4.0-10.0)
[2017-02-08 16:09] LABS: ANION GAP 6 MEQ/L (8-16); BLOOD UREA NITROGEN 30 MG/DL (7-18); CARBON DIOXIDE LEVEL 31 MEQ/L (21-32); CHLORIDE LEVEL 103 MEQ/L (98-107); GLOMERULAR FILTRATION RATE > 60.0 (>39); GLUCOSE, FASTING 305 MG/DL (83-110); POTASSIUM SERUM 4.4 MEQ/L (3.5-5.1); SODIUM LEVEL 140 MEQ/L (136-145)
[2017-02-08 16:21] LABS: INR 1.06; PROTHROMBIN TIME 13.9 SECONDS (12.4-14.5)
[2017-02-08 16:22] LABS: PARTIAL THROMBOPLASTIN TIME 40.5 SECONDS (26.8-37.9)
== END ==
LOC: M LABDRAW1 14:29
DX: Z79.01 Long term (current) use of anticoagulants (principal)
CPT/HCPCS: 80048

== ENCOUNTER → 2017-03-01 | Outpatient (CLI) | payer OTHER | LOC: M LAB 13:57 | DX: E24.9 Cushing's syndrome, unspecified (principal) | CPT/HCPCS: 84244 ==

== ENCOUNTER → 2017-03-15 | Outpatient (REF) | payer OTHER ==
[2017-03-15 13:23] LABS: ANION GAP 7 MEQ/L (8-16); BLOOD UREA NITROGEN 26 MG/DL (7-18); CALCIUM LEVEL 9.1 MG/DL (8.8-10.2); CARBON DIOXIDE LEVEL 30 MEQ/L (21-32); CHLORIDE LEVEL 103 MEQ/L (98-107); CREATININE FOR GFR 0.91 MG/DL (0.55-1.30); GLOMERULAR FILTRATION RATE > 60.0 (>39); GLUCOSE, FASTING 344 MG/DL (70-100); SODIUM LEVEL 140 MEQ/L (136-145)
== END ==
LOC: M LABDRAW1 12:40
DX: E24.9 Cushing's syndrome, unspecified (principal)
CPT/HCPCS: 80048

== ENCOUNTER → 2017-03-22 | Day surgery (SDC) | payer OTHER ==
[~2017-03-22] MED LIST changes: -/GLIP10TAB PO; -/NITR4TASL SL; -ACTO30TA15 PO; -ALBU17IN INH; -AMLO10TA2 PO; -ASPI-161 PO; -ASPI325T PO; -ASPI81TA85 PO; -ATEN25TA PO; -ATOR40TA75 PO; -ATOR80TA59 PO; -BENA20TA2 PO; -BENA40TA7 PO; -CARV6.25 PO; -CIPR500T3 PO; -CLOP75TA2 PO; -DOXY150C PO; -FURO20TA2 PO; -GLIP10TA6 PO; -GLIP1TAB49 PO; -GLUC500T PO; -IBUP80TA PO; -INSUH10VL SC; -INSULANT SC; -ISOS20TAB PO; -ISOS30TA4 PO; -LANTUS INSULIN SC; -LEVA1TAB2 PO; -LYRI150C PO; -METF500T PO; -METF500T13 PO; -NITR4TASL SL; +OFLOXACIN 0.3 % (OCUFLOX) OPTH SOL 5ML OS; -PERCOCET PO; +PHENYLEPHRINE 2.5% OPHTH SOL 2ML OS; -PRAV40TA2 PO; +PROPARACAINE 0.5% OPHTH SOL 15ML OS; -REGULAR INSULIN SC; -ROXI1TAB2 PO; -TIZA2CAP3 PO; +TROPICAMIDE 1% OPHTH SOLN 2ML OS; -TYLE325T5 PO; -VICT18IN SC; -VITA200016 PO; -VITA200038 PO; -VITAMIN D PO; -insulin
[2017-03-22] MEDS: BALANCED SALT IRRIGATION SOLUTION 500ML BAG (FOR OR EYE MACHINE) As Ordered (07:55)
[2017-03-22] MEDS: DUOVISC (0.50ML VISCOAT/0.55ML PROVISC) OPHTH KIT As Ordered (07:55)
[2017-03-22] MEDS: POVIDONE-IODINE 5% OPHTH PREP SOL 30ML As Ordered (07:55)
[2017-03-22] MEDS: ACETYLCHOLINE OPHTH SOLN 1% 2ML (MIOCHOL-E) As Ordered (07:56)
[2017-03-22] MEDS: LIDOCAINE 0.75%/EPINEPHRINE 0.025% IN BSS 1ML SYR INTRACAMERAL (OR ONLY) As Ordered (07:56)
[2017-03-22] MEDS: CEFUROXIME 1MG/0.1ML INTRACAMERAL INJ As Ordered (07:56)
== END | disposition home or self-care (01) ==
LOC: M SDC 06:55
DX: H25.12 Age-related nuclear cataract, left eye (principal); Z53.9 Procedure and treatment not carried out, unspecified reason

== ENCOUNTER → 2017-03-30 | Outpatient (REF) | payer OTHER ==
[2017-03-30 16:02] LABS: ANION GAP 8 MEQ/L (8-16); BLOOD UREA NITROGEN 24 MG/DL (7-18); CALCIUM LEVEL 8.9 MG/DL (8.8-10.2); CARBON DIOXIDE LEVEL 31 MEQ/L (21-32); CHLORIDE LEVEL 103 MEQ/L (98-107); CREATININE FOR GFR 0.93 MG/DL (0.55-1.30); GLOMERULAR FILTRATION RATE > 60.0 (>39); GLUCOSE, FASTING 359 MG/DL (70-100); POTASSIUM SERUM 4.1 MEQ/L (3.5-5.1); SODIUM LEVEL 142 MEQ/L (136-145)
== END ==
LOC: M LABDRAW1 13:41
DX: E24.9 Cushing's syndrome, unspecified (principal)
CPT/HCPCS: 80048

== ENCOUNTER 2017-04-05 06:25 | Day surgery (SDC) | payer OTHER ==
[2017-04-05] MEDS ORDERED: LIDOCAINE 1% MDV 20ML VIAL SQ (06:45)
[2017-04-05 07:21] LABS: BEDSIDE GLUCOSE 268 MG/DL (83-110)
[2017-04-05] MEDS ORDERED: MIDAZOLAM INJ 2 MG/2 ML VIAL (J2250) As Ordered (07:31)
[2017-04-05] MEDS ORDERED: fentaNYL 100 MCG/2 ML INJECTION (J3010) As Ordered (07:31)
[2017-04-05] MEDS: PROPARACAINE 0.5% OPHTH SOL 15ML OS (07:38)
[2017-04-05] MEDS: PHENYLEPHRINE 2.5% OPHTH SOL 2ML OS (07:38)
[2017-04-05] MEDS: OFLOXACIN 0.3 % (OCUFLOX) OPTH SOL 5ML OS (07:38)
[2017-04-05] MEDS: TROPICAMIDE 1% OPHTH SOLN 2ML OS (07:38)
[2017-04-05] MEDS: POVIDONE-IODINE 5% OPHTH PREP SOL 30ML As Ordered ×2 (07:54→07:57)
[2017-04-05] MEDS: LIDOCAINE 0.75%/EPINEPHRINE 0.025% IN BSS 1ML SYR INTRACAMERAL (OR ONLY) As Ordered (08:01)
[2017-04-05] MEDS: BALANCED SALT IRRIGATION SOLUTION 500ML BAG (FOR OR EYE MACHINE) As Ordered (08:02)
[2017-04-05] MEDS: DUOVISC (0.50ML VISCOAT/0.55ML PROVISC) OPHTH KIT As Ordered (08:09)
[2017-04-05] MEDS: CEFUROXIME 1MG/0.1ML INTRACAMERAL INJ As Ordered (08:10)
== END 2017-04-05 08:45 | disposition home or self-care (01) ==
LOC: M SDC 06:25
DX: H25.12 Age-related nuclear cataract, left eye (principal); I25.10 Atherosclerotic heart disease of native coronary artery without angina pectoris; E78.5 Hyperlipidemia, unspecified; Z85.51 Personal history of malignant neoplasm of bladder; I50.9 Heart failure, unspecified; I10 Essential (primary) hypertension; Z79.899 Other long term (current) drug therapy; I20.9 Angina pectoris, unspecified
CPT/HCPCS: 66984

== ENCOUNTER → 2017-04-10 | Outpatient (REF) | payer OTHER ==
[2017-04-10 18:15] LABS: ANION GAP 7 MEQ/L (8-16); BLOOD UREA NITROGEN 26 MG/DL (7-18); CALCIUM LEVEL 8.8 MG/DL (8.8-10.2); CARBON DIOXIDE LEVEL 31 MEQ/L (21-32); CHLORIDE LEVEL 107 MEQ/L (98-107); CREATININE FOR GFR 0.92 MG/DL (0.55-1.30); GLOMERULAR FILTRATION RATE > 60.0 (>39); GLUCOSE, FASTING 195 MG/DL (70-100); POTASSIUM SERUM 4.3 MEQ/L (3.5-5.1); SODIUM LEVEL 145 MEQ/L (136-145)
[2017-04-10 18:29] LABS: CORTISOL PM 53.4 UG/DL (3.1-16.7)
== END ==
LOC: M LABDRAW1 15:46
DX: E24.9 Cushing's syndrome, unspecified (principal); Z85.51 Personal history of malignant neoplasm of bladder
CPT/HCPCS: 82533

== ENCOUNTER → 2017-04-10 | Outpatient (REF) | payer OTHER ==
[2017-04-10 17:46] LABS: HEMATOCRIT 38.8 % (36.0-47.0); HEMOGLOBIN 11.5 g/dl (12.0-16.0); MEAN CORPUSCULAR HEMOGLOBIN 26.6 pg (27.0-33.0); MEAN CORPUSCULAR HGB CONC 29.6 g/dl (32.0-36.5); MEAN CORPUSCULAR VOLUME 89.8 fl (80.0-96.0); PLATELET COUNT, AUTOMATED 222 10^3/uL (150-450); RED BLOOD COUNT 4.32 10^6/uL (4.00-5.40); RED CELL DISTRIBUTION WIDTH 15.5 % (11.5-14.5); WHITE BLOOD COUNT 5.9 10^3/uL (4.0-10.0)
[2017-04-10 18:11] LABS: ANION GAP 5 MEQ/L (8-16); BLOOD UREA NITROGEN 24 MG/DL (7-18); CALCIUM LEVEL 8.5 MG/DL (8.8-10.2); CARBON DIOXIDE LEVEL 31 MEQ/L (21-32); CHLORIDE LEVEL 107 MEQ/L (98-107); CREATININE FOR GFR 0.92 MG/DL (0.55-1.30); GLOMERULAR FILTRATION RATE > 60.0 (>39); GLUCOSE, FASTING 202 MG/DL (70-100); POTASSIUM SERUM 4.3 MEQ/L (3.5-5.1); SODIUM LEVEL 143 MEQ/L (136-145)
== END ==
LOC: M LABDRAW1 15:38
DX: Z85.51 Personal history of malignant neoplasm of bladder (principal)

== ENCOUNTER → 2017-04-14 | Outpatient (CLI) | payer OTHER ==
[2017-04-14 09:24] LABS: ANION GAP 5 MEQ/L (8-16); BLOOD UREA NITROGEN 22 MG/DL (7-18); CALCIUM LEVEL 8.6 MG/DL (8.8-10.2); CARBON DIOXIDE LEVEL 33 MEQ/L (21-32); CHLORIDE LEVEL 105 MEQ/L (98-107); CREATININE FOR GFR 0.99 MG/DL (0.55-1.30); GLUCOSE, FASTING 258 MG/DL (70-100); POTASSIUM SERUM 3.8 MEQ/L (3.5-5.1); SODIUM LEVEL 143 MEQ/L (136-145)
== END ==
LOC: M LAB 08:33
DX: E24.9 Cushing's syndrome, unspecified (principal)
CPT/HCPCS: 80048

== ENCOUNTER 2017-04-19 06:51 | Day surgery (SDC) | payer OTHER ==
[2017-04-19] MEDS: PROPARACAINE 0.5% OPHTH SOL 15ML OD (07:05)
[2017-04-19] MEDS: PHENYLEPHRINE 2.5% OPHTH SOL 2ML OD (07:10)
[2017-04-19] MEDS ORDERED: fentaNYL 100 MCG/2 ML INJECTION (J3010) As Ordered (07:13)
[2017-04-19] MEDS ORDERED: MIDAZOLAM INJ 2 MG/2 ML VIAL (J2250) As Ordered (07:13)
[2017-04-19] MEDS: TROPICAMIDE 1% OPHTH SOLN 2ML OD (07:15)
[2017-04-19] MEDS: OFLOXACIN 0.3 % (OCUFLOX) OPTH SOL 5ML OD (07:20)
[2017-04-19 07:37] LABS: BEDSIDE GLUCOSE 148 MG/DL (83-110)
[2017-04-19] MEDS: POVIDONE-IODINE 5% OPHTH PREP SOL 30ML As Ordered (08:43)
[2017-04-19] MEDS: CEFUROXIME 1MG/0.1ML INTRACAMERAL INJ As Ordered (08:50)
[2017-04-19] MEDS: LIDOCAINE 0.75%/EPINEPHRINE 0.025% IN BSS 1ML SYR INTRACAMERAL (OR ONLY) As Ordered (08:50)
[2017-04-19] MEDS: BALANCED SALT IRRIGATION SOLUTION 500ML BAG (FOR OR EYE MACHINE) As Ordered (08:50)
[2017-04-19] MEDS: DUOVISC (0.50ML VISCOAT/0.55ML PROVISC) OPHTH KIT As Ordered (08:50)
== END 2017-04-19 09:34 | disposition home or self-care (01) ==
LOC: M SDC 06:51
DX: H25.11 Age-related nuclear cataract, right eye (principal); I11.9 Hypertensive heart disease without heart failure; I25.119 Atherosclerotic heart disease of native coronary artery with unspecified angina pectoris; Z95.5 Presence of coronary angioplasty implant and graft; I25.2 Old myocardial infarction; E11.40 Type 2 diabetes mellitus with diabetic neuropathy, unspecified; E78.00 Pure hypercholesterolemia, unspecified; E27.40 Unspecified adrenocortical insufficiency; R35.0 Frequency of micturition; F32.9 Major depressive disorder, single episode, unspecified; M54.5 Low back pain; Z85.51 Personal history of malignant neoplasm of bladder; Z79.899 Other long term (current) drug therapy; Z79.82 Long term (current) use of aspirin; Z79.01 Long term (current) use of anticoagulants; Z79.4 Long term (current) use of insulin
CPT/HCPCS: 66984

== ENCOUNTER → 2017-04-23 | Outpatient (REF) | payer OTHER ==
[2017-04-23 16:14] LABS: ANION GAP 9 MEQ/L (8-16); BLOOD UREA NITROGEN 26 MG/DL (7-18); CALCIUM LEVEL 8.5 MG/DL (8.8-10.2); CARBON DIOXIDE LEVEL 31 MEQ/L (21-32); CHLORIDE LEVEL 105 MEQ/L (98-107); CREATININE FOR GFR 1.06 MG/DL (0.55-1.30); GLOMERULAR FILTRATION RATE 54.6 (>39); GLUCOSE, FASTING 286 MG/DL (70-100); POTASSIUM SERUM 3.8 MEQ/L (3.5-5.1); SODIUM LEVEL 145 MEQ/L (136-145)
== END ==
LOC: M LABDRAW1 14:00
DX: E24.9 Cushing's syndrome, unspecified (principal); E11.65 Type 2 diabetes mellitus with hyperglycemia
CPT/HCPCS: 80048

== ENCOUNTER 2017-05-21 11:18 | Inpatient (IN) | payer OTHER ==
[2017-05-21 11:53] LABS: VENOUS BASE EXCESS 17.9 (-2.0-2.0); VENOUS HCO3 45.3 MEQ/L (23.0-27.0); VENOUS O2 SATURATION 93.5 % (60.0-80.0); VENOUS PARTIAL PRESSURE CO2 64.2 mmHg (38.0-50.0); VENOUS PARTIAL PRESSURE O2 68.6 mmHg (30.0-50.0); VENOUS PH 7.466 UNITS (7.330-7.430); VENOUS TOTAL CO2 47.2 MEQ/L (24.0-28.0)
[2017-05-21 11:56] LABS: BASO # 0.1 10^3/uL (0.0-0.2); BASO % 0.5 % (0.0-1.0); EOS # 0.1 10^3/uL (0.0-0.50); EOS % 0.9 % (0.0-3.0); HEMATOCRIT 41.3 % (36.0-47.0); HEMOGLOBIN 12.8 g/dl (12.0-15.5); IMMATURE GRANULOCYTE % 0.3 % (0-3.0); LYMPH # 2.2 10^3/uL (1.5-4.5); MEAN CORPUSCULAR HEMOGLOBIN 27.1 pg (27.0-33.0); MEAN CORPUSCULAR VOLUME 87.3 fl (80.0-96.0); MONO # 1.3 10^3/uL (0.0-0.8); MONO % 12.5 % (0.0-5.0); NEUTROPHILS # 6.7 10^3/uL (1.8-7.7); NEUTROPHILS % 64.8 % (36.0-66.0); PLATELET COUNT, AUTOMATED 291 10^3/uL (150-450); RED BLOOD COUNT 4.73 10^6/uL (4.00-5.40); RED CELL DISTRIBUTION WIDTH 15.5 % (11.5-14.5); WHITE BLOOD COUNT 10.4 10^3/uL (4.0-10.0)
[2017-05-21 12:17] LABS: AMMONIA 35 uMOL/L (<32)
[2017-05-21 12:27] LABS: ALBUMIN 3.8 GM/DL (3.2-5.2); ALBUMIN/GLOBULIN RATIO 0.86 (1.00-1.93); ALKALINE PHOSPHATASE 65 U/L (45-117); ALT/SGPT 24 U/L (12-78); AST/SGOT 20 U/L (7-37); BILIRUBIN,DIRECT 0.2 MG/DL (0.0-0.2); BILIRUBIN,TOTAL 0.7 MG/DL (0.2-1.0); BLOOD UREA NITROGEN 43 MG/DL (7-18); CALCIUM LEVEL 9.2 MG/DL (8.8-10.2); CHLORIDE LEVEL 91 MEQ/L (98-107); CPK CREATINE PHOSPHOKINASE 126 U/L (26-192); CREATININE FOR GFR 1.42 MG/DL (0.55-1.30); GLOMERULAR FILTRATION RATE 38.9 (>39); GLUCOSE, FASTING 62 MG/DL (70-100); POTASSIUM SERUM 1.9 MEQ/L (3.5-5.1); TOTAL PROTEIN 8.2 GM/DL (6.4-8.2); TROPONIN I < 0.02 NG/ML (< 0.10)
[2017-05-21 12:32] LABS: CK-MB VALUE MASS < 1.0 NG/ML (<3.6); MB/CK RELATIVE INDEX 0.79 (< OR =4)
[2017-05-21 12:38] LABS: LACTIC ACID SEPSIS PROTOCOL 1.2 MMOL/L (0.4-2.0)
[2017-05-21 12:58] LABS: BEDSIDE GLUCOSE 63 MG/DL (83-110)
[2017-05-21 13:13] LABS: SODIUM LEVEL 141 MEQ/L (136-145)
[2017-05-21] MEDS: NS 250 ML IV (13:15)
[2017-05-21 13:31] LABS: ANION GAP 5 MEQ/L (8-16); CARBON DIOXIDE LEVEL 45 MEQ/L (21-32)
[2017-05-21] MEDS: POTASSIUM CHLORIDE 10 MEQ SR TABLET PO ×3 (13:38→23:00)
[2017-05-21] MEDS: KCL 10MEQ/100ML SWI (KRUN) 10 MEQ in APPROPRIATE DILUENT 1 EA IV ×4 (13:38→22:54)
[2017-05-21 14:27] LABS: BEDSIDE GLUCOSE 106 MG/DL (83-110)
[2017-05-21] MEDS ORDERED: GLUCAGON FOR INJ 1 MG VIAL (J1610) SC (15:15)
[2017-05-21] MEDS ORDERED: DEXTROSE 50% 50 ML SYRINGE IV (15:15)
[2017-05-21] MEDS ORDERED: GLUCOSE 4 GM CHEW TABLET PO (15:15)
[2017-05-21 16:17] LABS: MAGNESIUM LEVEL 1.9 MG/DL (1.8-2.4)
[2017-05-21 17:47] LABS: BEDSIDE GLUCOSE 88 MG/DL (83-110)
[2017-05-21] MEDS: HumaLOG INSULIN (NovoLOG) PER UNIT SC ×2 (18:00→21:00)
[2017-05-21 19:10] LABS: ANION GAP 6 MEQ/L (8-16); BLOOD UREA NITROGEN 39 MG/DL (7-18); CALCIUM LEVEL 8.9 MG/DL (8.8-10.2); CARBON DIOXIDE LEVEL 44 MEQ/L (21-32); CHLORIDE LEVEL 92 MEQ/L (98-107); CK-MB VALUE MASS 1.1 NG/ML (<3.6); CPK CREATINE PHOSPHOKINASE 135 U/L (26-192); CREATININE FOR GFR 1.31 MG/DL (0.55-1.30); GLOMERULAR FILTRATION RATE 42.7 (>39); GLUCOSE, FASTING 112 MG/DL (70-100); MB/CK RELATIVE INDEX 0.81 (< OR =4); SODIUM LEVEL 142 MEQ/L (136-145); TROPONIN I < 0.02 NG/ML (< 0.10)
[2017-05-21 19:19] LABS: POTASSIUM SERUM 2.1 MEQ/L (3.5-5.1)
[2017-05-21] MEDS: GABAPENTIN 100 MG CAP PO (21:06)
[2017-05-21] MEDS: PRAVASTATIN 20 MG TAB PO (21:06)
[2017-05-21] MEDS: CARVedilol 6.25 MG TAB PO (21:06)
[2017-05-21] MEDS: VITAMIN D 1,000 INTERNATIONAL UNITS TABLET PO (21:06)
[2017-05-21] MEDS: ACETAMINOPHEN TAB 650MG DOSE (2X325MG) PO (21:06)
[2017-05-21 21:07] LABS: BEDSIDE GLUCOSE 165 MG/DL (83-110)
[2017-05-21] MEDS ORDERED: POTASSIUM CHLORIDE 10 MEQ SR TABLET PO (21:30)
[2017-05-21] MEDS: NS 1,000 ML IV (23:00)
[2017-05-22 00:18] LABS: KETONE, URINE AUTO RFX NEGATIVE (NEGATIVE); MUCUS, URINE RFX SMALL (NEGATIVE); RBC, URINE AUTO RFX 2 /HPF (0-3); SPECIFIC GRAVITY UR AUTO RFX 1.009 (1.002-1.035); SQUAM EPITHELIAL CELL UR AURFX 0 /HPF (0-6)
[2017-05-22 00:52] LABS: ANION GAP 3 MEQ/L (8-16); BLOOD UREA NITROGEN 39 MG/DL (7-18); CALCIUM LEVEL 8.9 MG/DL (8.8-10.2); CARBON DIOXIDE LEVEL 45 MEQ/L (21-32); CHLORIDE LEVEL 91 MEQ/L (98-107); CK-MB VALUE MASS < 1.0 NG/ML (<3.6); CPK CREATINE PHOSPHOKINASE 140 U/L (26-192); CREATININE FOR GFR 1.24 MG/DL (0.55-1.30); GLOMERULAR FILTRATION RATE 45.5 (>39); GLUCOSE, FASTING 170 MG/DL (70-100); MB/CK RELATIVE INDEX 0.71 (< OR =4); POTASSIUM SERUM 2.4 MEQ/L (3.5-5.1); SODIUM LEVEL 139 MEQ/L (136-145); TROPONIN I < 0.02 NG/ML (< 0.10)
[2017-05-22 01:14] LABS: LEUKOCYTE ESTERASE UR AUTO RFX 2+ (NEGATIVE); NITRITE, URINE AUTO RFX POSITIVE (NEGATIVE); WBC, URINE AUTO RFX 18 /HPF (0-3)
[2017-05-22 02:12] LABS: BEDSIDE GLUCOSE 161 MG/DL (83-110)
[2017-05-22 02:16] LABS: MAGNESIUM LEVEL 1.6 MG/DL (1.8-2.4)
[2017-05-22] MEDS: POTASSIUM CHLORIDE 10 MEQ SR TABLET PO ×5 (02:32→20:59)
[2017-05-22] MEDS: KCL 10MEQ/100ML SWI (KRUN) 10 MEQ in APPROPRIATE DILUENT 1 EA IV ×2 (02:33→04:06)
[2017-05-22] MEDS: ACETAMINOPHEN TAB 650MG DOSE (2X325MG) PO ×3 (04:35→21:00)
[2017-05-22 05:22] LABS: BASO % 0.6 % (0.0-1.0); EOS # 0.1 10^3/uL (0.0-0.50); EOS % 0.8 % (0.0-3.0); HEMATOCRIT 38.1 % (36.0-47.0); HEMOGLOBIN 11.8 g/dl (12.0-15.5); IMMATURE GRANULOCYTE % 0.3 % (0-3.0); LYMPH # 1.8 10^3/uL (1.5-4.5); LYMPH % 28.8 % (24.0-44.0); MEAN CORPUSCULAR HEMOGLOBIN 27.1 pg (27.0-33.0); MEAN CORPUSCULAR VOLUME 87.4 fl (80.0-96.0); MONO # 0.9 10^3/uL (0.0-0.8); MONO % 13.6 % (0.0-5.0); NEUTROPHILS # 3.6 10^3/uL (1.8-7.7); NEUTROPHILS % 55.9 % (36.0-66.0); PLATELET COUNT, AUTOMATED 206 10^3/uL (150-450); RED BLOOD COUNT 4.36 10^6/uL (4.00-5.40); RED CELL DISTRIBUTION WIDTH 15.3 % (11.5-14.5); WHITE BLOOD COUNT 6.4 10^3/uL (4.0-10.0)
[2017-05-22 05:45] LABS: ALBUMIN 3.2 GM/DL (3.2-5.2); ALBUMIN/GLOBULIN RATIO 0.71 (1.00-1.93); ALKALINE PHOSPHATASE 55 U/L (45-117); ALT/SGPT 23 U/L (12-78); ANION GAP 4 MEQ/L (8-16); AST/SGOT 16 U/L (7-37); BILIRUBIN,TOTAL 0.6 MG/DL (0.2-1.0); BLOOD UREA NITROGEN 31 MG/DL (7-18); CALCIUM LEVEL 8.8 MG/DL (8.8-10.2); CARBON DIOXIDE LEVEL 44 MEQ/L (21-32); CHLORIDE LEVEL 92 MEQ/L (98-107); CREATININE FOR GFR 1.09 MG/DL (0.55-1.30); GLOMERULAR FILTRATION RATE 52.8 (>39); GLUCOSE, FASTING 215 MG/DL (70-100); MAGNESIUM LEVEL 1.8 MG/DL (1.8-2.4); POTASSIUM SERUM 2.7 MEQ/L (3.5-5.1); SODIUM LEVEL 140 MEQ/L (136-145); TOTAL PROTEIN 7.7 GM/DL (6.4-8.2)
[2017-05-22] MEDS: MAG SULF 1GM/100ML (MAG RUN) 1 GM in APPROPRIATE DILUENT 1 EA IV (06:58)
[2017-05-22 07:18] LABS: AMMONIA 36 uMOL/L (<32)
[2017-05-22] MEDS: VITAMIN D 1,000 INTERNATIONAL UNITS TABLET PO ×2 (08:20→20:58)
[2017-05-22] MEDS: GABAPENTIN 100 MG CAP PO ×2 (08:20→21:00)
[2017-05-22] MEDS: HumaLOG INSULIN (NovoLOG) PER UNIT SC ×4 (08:20→20:58)
[2017-05-22] MEDS: CARVedilol 6.25 MG TAB PO ×2 (08:22→21:00)
[2017-05-22] MEDS: CLOPIDOGREL 75 MG TAB PO (08:22)
[2017-05-22] MEDS: amLODIPine 10 MG TAB PO (08:22)
[2017-05-22] MEDS: ASPIRIN 81 MG ENTERIC TAB PO (08:22)
[2017-05-22] MEDS ORDERED: POTASSIUM CHLORIDE 10 MEQ SR TABLET PO ×2 (09:00)
[2017-05-22] MEDS ORDERED: SLF 3 ML SYR IV (10:45)
[2017-05-22 11:08] LABS: POTASSIUM SERUM 2.9 MEQ/L (3.5-5.1)
[2017-05-22 11:21] LABS: CK-MB VALUE MASS < 1.0 NG/ML (<3.6); CPK CREATINE PHOSPHOKINASE 145 U/L (26-192); MB/CK RELATIVE INDEX 0.68 (< OR =4); TROPONIN I < 0.02 NG/ML (< 0.10)
[2017-05-22 12:20] LABS: PHOSPHORUS LEVEL 2.5 MG/DL (2.5-4.9)
[2017-05-22 12:27] LABS: BEDSIDE GLUCOSE 317 MG/DL (83-110)
[2017-05-22] MEDS: SLF 3 ML SYR IV ×2 (14:00→22:00)
[2017-05-22 16:32] LABS: OSMOLALITY URINE 430 MOSM/KG (500-800)
[2017-05-22 16:58] LABS: POTASSIUM RANDOM URINE 54.5 MEQ/L; SODIUM,RANDOM URINE 18 MEQ/L; TOTAL PROTEIN,RANDOM URINE 56.7 MG/DL (0.0-12.0)
[2017-05-22 16:58] LABS: CREATININE,RANDOM URINE 66.2 MG/DL
[2017-05-22 17:49] LABS: BEDSIDE GLUCOSE 328 MG/DL (83-110)
[2017-05-22 18:53] LABS: POTASSIUM SERUM 3.1 MEQ/L (3.5-5.1)
[2017-05-22 19:00] LABS: OSMOLALITY SERUM 314 MOSM/KG (280-301)
[2017-05-22 20:51] LABS: BEDSIDE GLUCOSE 344 MG/DL (83-110)
[2017-05-22] MEDS: PRAVASTATIN 20 MG TAB PO (21:00)
[2017-05-23] MEDS: ANALGESIC BALM CRM 120 GM TOP (00:13)
[2017-05-23 01:06] LABS: POTASSIUM SERUM 3.1 MEQ/L (3.5-5.1)
[2017-05-23] MEDS: POTASSIUM CHLORIDE 10 MEQ SR TABLET PO ×5 (01:48→21:04)
[2017-05-23] MEDS: SLF 3 ML SYR IV ×3 (05:20→21:05)
[2017-05-23 05:33] LABS: BASO % 0.5 % (0.0-1.0); EOS # 0.1 10^3/uL (0.0-0.50); EOS % 1.4 % (0.0-3.0); HEMATOCRIT 37.3 % (36.0-47.0); HEMOGLOBIN 11.4 g/dl (12.0-15.5); IMMATURE GRANULOCYTE % 0.2 % (0-3.0); LYMPH # 1.6 10^3/uL (1.5-4.5); LYMPH % 28.8 % (24.0-44.0); MEAN CORPUSCULAR HEMOGLOBIN 26.6 pg (27.0-33.0); MEAN CORPUSCULAR HGB CONC 30.6 g/dl (32.0-36.5); MEAN CORPUSCULAR VOLUME 87.1 fl (80.0-96.0); MONO # 0.7 10^3/uL (0.0-0.8); MONO % 12.1 % (0.0-5.0); NEUTROPHILS # 3.2 10^3/uL (1.8-7.7); PLATELET COUNT, AUTOMATED 207 10^3/uL (150-450); RED BLOOD COUNT 4.28 10^6/uL (4.00-5.40); RED CELL DISTRIBUTION WIDTH 14.8 % (11.5-14.5); WHITE BLOOD COUNT 5.6 10^3/uL (4.0-10.0)
[2017-05-23 05:49] LABS: ALBUMIN 3.1 GM/DL (3.2-5.2); ALBUMIN/GLOBULIN RATIO 0.72 (1.00-1.93); ALKALINE PHOSPHATASE 60 U/L (45-117); ALT/SGPT 23 U/L (12-78); ANION GAP 3 MEQ/L (8-16); AST/SGOT 14 U/L (7-37); BILIRUBIN,TOTAL 0.4 MG/DL (0.2-1.0); BLOOD UREA NITROGEN 20 MG/DL (7-18); CALCIUM LEVEL 8.7 MG/DL (8.8-10.2); CARBON DIOXIDE LEVEL 41 MEQ/L (21-32); CHLORIDE LEVEL 98 MEQ/L (98-107); CREATININE FOR GFR 1.08 MG/DL (0.55-1.30); GLOMERULAR FILTRATION RATE 53.4 (>39); GLUCOSE, FASTING 295 MG/DL (70-100); MAGNESIUM LEVEL 2.1 MG/DL (1.8-2.4); POTASSIUM SERUM 3.5 MEQ/L (3.5-5.1); SODIUM LEVEL 142 MEQ/L (136-145); TOTAL PROTEIN 7.4 GM/DL (6.4-8.2)
[2017-05-23] MEDS: HumaLOG INSULIN (NovoLOG) PER UNIT SC ×4 (08:59→21:03)
[2017-05-23] MEDS: ASPIRIN 81 MG ENTERIC TAB PO (09:08)
[2017-05-23] MEDS: GABAPENTIN 100 MG CAP PO ×2 (09:08→21:04)
[2017-05-23] MEDS: CLOPIDOGREL 75 MG TAB PO (09:08)
[2017-05-23] MEDS: amLODIPine 10 MG TAB PO (09:08)
[2017-05-23] MEDS: VITAMIN D 1,000 INTERNATIONAL UNITS TABLET PO ×2 (09:09→21:04)
[2017-05-23] MEDS: CARVedilol 6.25 MG TAB PO (09:10)
[2017-05-23] MEDS: CALCIUM GLUCONATE 1,000 MG in D5W MINI-BAG PLUS 100 ML IV (09:10)
[2017-05-23 11:08] LABS: BEDSIDE GLUCOSE 296 MG/DL (83-110)
[2017-05-23] MEDS: KORLYM PO (11:08)
[2017-05-23 12:45] LABS: POTASSIUM SERUM 3.4 MEQ/L (3.5-5.1)
[2017-05-23] MEDS: ACETAMINOPHEN TAB 650MG DOSE (2X325MG) PO (15:31)
[2017-05-23 17:28] LABS: BEDSIDE GLUCOSE 369 MG/DL (83-110)
[2017-05-23 19:11] LABS: POTASSIUM SERUM 3.4 MEQ/L (3.5-5.1)
[2017-05-23 20:33] LABS: BEDSIDE GLUCOSE 386 MG/DL (83-110)
[2017-05-23] MEDS: PRAVASTATIN 20 MG TAB PO (21:04)
[2017-05-23] MEDS: CARVedilol 12.5 MG TAB PO (21:05)
[2017-05-24 00:02] LABS: POTASSIUM SERUM 3.6 MEQ/L (3.5-5.1)
[2017-05-24 05:36] LABS: BASO % 0.6 % (0.0-1.0); EOS # 0.1 10^3/uL (0.0-0.50); EOS % 1.6 % (0.0-3.0); HEMATOCRIT 36.8 % (36.0-47.0); HEMOGLOBIN 11.4 g/dl (12.0-15.5); IMMATURE GRANULOCYTE % 0.2 % (0-3.0); LYMPH # 1.7 10^3/uL (1.5-4.5); LYMPH % 35.7 % (24.0-44.0); MEAN CORPUSCULAR HEMOGLOBIN 26.9 pg (27.0-33.0); MEAN CORPUSCULAR VOLUME 86.8 fl (80.0-96.0); MONO # 0.6 10^3/uL (0.0-0.8); NEUTROPHILS # 2.4 10^3/uL (1.8-7.7); NEUTROPHILS % 49.9 % (36.0-66.0); PLATELET COUNT, AUTOMATED 211 10^3/uL (150-450); RED BLOOD COUNT 4.24 10^6/uL (4.00-5.40); WHITE BLOOD COUNT 4.9 10^3/uL (4.0-10.0)
[2017-05-24] MEDS: SLF 3 ML SYR IV ×3 (05:38→21:31)
[2017-05-24 05:52] LABS: ALBUMIN 3.1 GM/DL (3.2-5.2); ALKALINE PHOSPHATASE 56 U/L (45-117); ALT/SGPT 17 U/L (12-78); ANION GAP 4 MEQ/L (8-16); AST/SGOT 19 U/L (7-37); BILIRUBIN,TOTAL 0.4 MG/DL (0.2-1.0); BLOOD UREA NITROGEN 18 MG/DL (7-18); CARBON DIOXIDE LEVEL 37 MEQ/L (21-32); CHLORIDE LEVEL 103 MEQ/L (98-107); CREATININE FOR GFR 0.93 MG/DL (0.55-1.30); GLOMERULAR FILTRATION RATE > 60.0 (>39); GLUCOSE, FASTING 253 MG/DL (70-100); MAGNESIUM LEVEL 1.9 MG/DL (1.8-2.4); POTASSIUM SERUM 3.8 MEQ/L (3.5-5.1); SODIUM LEVEL 144 MEQ/L (136-145); TOTAL PROTEIN 7.5 GM/DL (6.4-8.2)
[2017-05-24] MEDS: FUROSEMIDE 40 MG/4 ML VIAL (J1940) IV ×4 (06:12→23:53)
[2017-05-24] MEDS: HumaLOG INSULIN (NovoLOG) PER UNIT SC ×4 (08:17→21:28)
[2017-05-24] MEDS: GABAPENTIN 100 MG CAP PO ×2 (08:17→21:30)
[2017-05-24] MEDS: POTASSIUM CHLORIDE 10 MEQ SR TABLET PO ×4 (08:17→21:30)
[2017-05-24] MEDS: CARVedilol 12.5 MG TAB PO ×2 (08:18→21:30)
[2017-05-24] MEDS: amLODIPine 10 MG TAB PO (08:18)
[2017-05-24] MEDS: CLOPIDOGREL 75 MG TAB PO (08:18)
[2017-05-24] MEDS: ASPIRIN 81 MG ENTERIC TAB PO (08:18)
[2017-05-24] MEDS: VITAMIN D 1,000 INTERNATIONAL UNITS TABLET PO ×2 (08:18→21:30)
[2017-05-24] MEDS ORDERED: LEVEMIR (INSULIN DETEMIR) 1 UNITS/0.01ML SC (09:00)
[2017-05-24 09:24] LABS: ERYTHROCYTE SEDIMENTATION RATE 56 mm/hr (0-30)
[2017-05-24] MEDS: LEVEMIR (INSULIN DETEMIR) 1 UNITS/0.01ML SC ×2 (10:03→21:28)
[2017-05-24 13:17] LABS: POTASSIUM SERUM 3.7 MEQ/L (3.5-5.1)
[2017-05-24 17:40] LABS: BEDSIDE GLUCOSE 380 MG/DL (83-110)
[2017-05-24 18:25] LABS: POTASSIUM SERUM 3.6 MEQ/L (3.5-5.1)
[2017-05-24] MEDS: ACETAMINOPHEN TAB 650MG DOSE (2X325MG) PO (21:29)
[2017-05-24] MEDS: PRAVASTATIN 20 MG TAB PO (21:30)
[2017-05-24 21:53] LABS: BEDSIDE GLUCOSE 435 MG/DL (83-110)
[2017-05-24] MEDS: ANALGESIC BALM CRM 120 GM TOP (23:54)
[2017-05-25 00:21] LABS: POTASSIUM SERUM 3.8 MEQ/L (3.5-5.1)
[2017-05-25 03:22] LABS: BEDSIDE GLUCOSE 330 MG/DL (83-110)
[2017-05-25] MEDS: SLF 3 ML SYR IV ×3 (05:51→21:46)
[2017-05-25] MEDS: FUROSEMIDE 40 MG/4 ML VIAL (J1940) IV (05:51)
[2017-05-25 06:27] LABS: BASO % 0.5 % (0.0-1.0); EOS # 0.1 10^3/uL (0.0-0.50); EOS % 1.6 % (0.0-3.0); HEMATOCRIT 36.9 % (36.0-47.0); HEMOGLOBIN 11.8 g/dl (12.0-15.5); IMMATURE GRANULOCYTE % 0.4 % (0-3.0); LYMPH # 1.9 10^3/uL (1.5-4.5); LYMPH % 34.2 % (24.0-44.0); MEAN CORPUSCULAR HEMOGLOBIN 27.6 pg (27.0-33.0); MEAN CORPUSCULAR VOLUME 86.4 fl (80.0-96.0); MONO # 0.6 10^3/uL (0.0-0.8); MONO % 11.1 % (0.0-5.0); NEUTROPHILS # 2.9 10^3/uL (1.8-7.7); NEUTROPHILS % 52.2 % (36.0-66.0); PLATELET COUNT, AUTOMATED 212 10^3/uL (150-450); RED BLOOD COUNT 4.27 10^6/uL (4.00-5.40); RED CELL DISTRIBUTION WIDTH 14.9 % (11.5-14.5); WHITE BLOOD COUNT 5.5 10^3/uL (4.0-10.0)
[2017-05-25 06:48] LABS: ALBUMIN 3.4 GM/DL (3.2-5.2); ALBUMIN/GLOBULIN RATIO 0.74 (1.00-1.93); ALKALINE PHOSPHATASE 65 U/L (45-117); ALT/SGPT 22 U/L (12-78); ANION GAP 4 MEQ/L (8-16); AST/SGOT 13 U/L (7-37); BILIRUBIN,TOTAL 0.4 MG/DL (0.2-1.0); BLOOD UREA NITROGEN 19 MG/DL (7-18); CARBON DIOXIDE LEVEL 37 MEQ/L (21-32); CHLORIDE LEVEL 100 MEQ/L (98-107); CREATININE FOR GFR 1.05 MG/DL (0.55-1.30); GLOMERULAR FILTRATION RATE 55.2 (>39); GLUCOSE, FASTING 304 MG/DL (70-100); MAGNESIUM LEVEL 1.8 MG/DL (1.8-2.4); POTASSIUM SERUM 3.6 MEQ/L (3.5-5.1); SODIUM LEVEL 141 MEQ/L (136-145)
[2017-05-25] MEDS: HumaLOG INSULIN (NovoLOG) PER UNIT SC ×4 (09:10→21:37)
[2017-05-25] MEDS: LEVEMIR (INSULIN DETEMIR) 1 UNITS/0.01ML SC ×2 (09:10→21:36)
[2017-05-25] MEDS: CARVedilol 12.5 MG TAB PO ×2 (09:13→21:34)
[2017-05-25] MEDS: ASPIRIN 81 MG ENTERIC TAB PO (09:14)
[2017-05-25] MEDS: LISINOPRIL 10 MG TAB PO (09:14)
[2017-05-25] MEDS: amLODIPine 10 MG TAB PO (09:14)
[2017-05-25] MEDS: VITAMIN D 1,000 INTERNATIONAL UNITS TABLET PO ×2 (09:15→21:33)
[2017-05-25] MEDS: CLOPIDOGREL 75 MG TAB PO (09:15)
[2017-05-25] MEDS: POTASSIUM CHLORIDE 10 MEQ SR TABLET PO ×4 (09:15→21:34)
[2017-05-25] MEDS: GABAPENTIN 100 MG CAP PO ×2 (09:15→21:34)
[2017-05-25 10:23] LABS: FERRITIN 22 NG/ML (8-252); IRON (FE) 57 UG/DL (50-170); PERCENT SATURATION 12.3 % (13.2-45.0); TOTAL IRON BINDING CAPACITY 462 UG/DL (250-450)
[2017-05-25] MEDS: ASPIRIN 81 MG CHEW TABLET PO (10:32)
[2017-05-25 10:37] LABS: VITAMIN B12 LEVEL 280 PG/ML (247-911)
[2017-05-25 10:44] LABS: FOLATE 10.7 NG/ML (>5.4)
[2017-05-25] MEDS: ACETAMINOPHEN TAB 650MG DOSE (2X325MG) PO (12:28)
[2017-05-25] MEDS ORDERED: PROHANCE 279.3MG/ML 15ML VIAL (A9576) As Ordered (12:41)
[2017-05-25 12:53] LABS: POTASSIUM SERUM 3.9 MEQ/L (3.5-5.1)
[2017-05-25 14:11] LABS: BEDSIDE GLUCOSE 359 MG/DL (83-110)
[2017-05-25 14:19] LABS: ANTINUCLEAR ANTIBODIES DIRECT Negative (Negative)
[2017-05-25 18:28] LABS: POTASSIUM SERUM 4.3 MEQ/L (3.5-5.1)
[2017-05-25 18:44] LABS: CHOLESTEROL LEVEL 132 MG/DL (<200); CHOLESTEROL RISK RATIO 4.888 (<5); HDL CHOLESTEROL 27 MG/DL (>40); LDL CHOLESTEROL 44.8 MG/DL (<100); NON-HDL-C 105 MG/DL; TRIGLYCERIDES LEVEL 301 MG/DL (<150)
[2017-05-25 20:13] LABS: BEDSIDE GLUCOSE 430 MG/DL (83-110)
[2017-05-25 20:45] LABS: BEDSIDE GLUCOSE 431 MG/DL (83-110)
[2017-05-25] MEDS ORDERED: LEVEMIR (INSULIN DETEMIR) 1 UNITS/0.01ML SC (21:00)
[2017-05-25] MEDS: PRAVASTATIN 20 MG TAB PO (21:33)
[2017-05-26 00:34] LABS: POTASSIUM SERUM 4.3 MEQ/L (3.5-5.1)
[2017-05-26] MEDS: SLF 3 ML SYR IV ×3 (05:49→20:47)
[2017-05-26] MEDS: ANALGESIC BALM CRM 120 GM TOP (05:49)
[2017-05-26 05:53] LABS: BASO % 0.5 % (0.0-1.0); EOS # 0.1 10^3/uL (0.0-0.50); EOS % 1.4 % (0.0-3.0); HEMATOCRIT 35.9 % (36.0-47.0); HEMOGLOBIN 11.4 g/dl (12.0-15.5); IMMATURE GRANULOCYTE % 0.2 % (0-3.0); MEAN CORPUSCULAR HEMOGLOBIN 27.2 pg (27.0-33.0); MEAN CORPUSCULAR HGB CONC 31.8 g/dl (32.0-36.5); MEAN CORPUSCULAR VOLUME 85.7 fl (80.0-96.0); MONO # 0.6 10^3/uL (0.0-0.8); NEUTROPHILS % 51.9 % (36.0-66.0); PLATELET COUNT, AUTOMATED 212 10^3/uL (150-450); RED BLOOD COUNT 4.19 10^6/uL (4.00-5.40); RED CELL DISTRIBUTION WIDTH 14.8 % (11.5-14.5); WHITE BLOOD COUNT 5.7 10^3/uL (4.0-10.0)
[2017-05-26 06:22] LABS: ALBUMIN 3.2 GM/DL (3.2-5.2); ALBUMIN/GLOBULIN RATIO 0.71 (1.00-1.93); ALKALINE PHOSPHATASE 62 U/L (45-117); ALT/SGPT 24 U/L (12-78); ANION GAP 5 MEQ/L (8-16); AST/SGOT 14 U/L (7-37); BILIRUBIN,TOTAL 0.3 MG/DL (0.2-1.0); BLOOD UREA NITROGEN 23 MG/DL (7-18); CALCIUM LEVEL 8.8 MG/DL (8.8-10.2); CARBON DIOXIDE LEVEL 33 MEQ/L (21-32); CHLORIDE LEVEL 104 MEQ/L (98-107); GLOMERULAR FILTRATION RATE 58.4 (>39); GLUCOSE, FASTING 291 MG/DL (70-100); MAGNESIUM LEVEL 1.9 MG/DL (1.8-2.4); POTASSIUM SERUM 4.4 MEQ/L (3.5-5.1); SODIUM LEVEL 142 MEQ/L (136-145); TOTAL PROTEIN 7.7 GM/DL (6.4-8.2)
[2017-05-26] MEDS: HumaLOG INSULIN (NovoLOG) PER UNIT SC ×4 (08:21→20:47)
[2017-05-26] MEDS: POTASSIUM CHLORIDE 10 MEQ SR TABLET PO ×4 (08:21→20:45)
[2017-05-26] MEDS: GABAPENTIN 100 MG CAP PO ×2 (08:22→20:48)
[2017-05-26] MEDS: amLODIPine 10 MG TAB PO (08:22)
[2017-05-26] MEDS: CARVedilol 12.5 MG TAB PO ×2 (08:22→20:46)
[2017-05-26] MEDS: VITAMIN D 1,000 INTERNATIONAL UNITS TABLET PO ×2 (08:22→20:48)
[2017-05-26] MEDS: ASPIRIN 81 MG ENTERIC TAB PO (08:22)
[2017-05-26] MEDS: metOLazone 5 MG TAB PO (08:23)
[2017-05-26] MEDS: LISINOPRIL 10 MG TAB PO (08:23)
[2017-05-26] MEDS: CLOPIDOGREL 75 MG TAB PO (08:23)
[2017-05-26] MEDS ORDERED: ASPIRIN 81 MG CHEW TABLET PO (09:00)
[2017-05-26 12:25] LABS: BEDSIDE GLUCOSE 377 MG/DL (83-110)
[2017-05-26] MEDS: LEVEMIR (INSULIN DETEMIR) 1 UNITS/0.01ML SC ×2 (12:34→20:46)
[2017-05-26] MEDS: ACETAMINOPHEN TAB 650MG DOSE (2X325MG) PO (16:08)
[2017-05-26 17:04] LABS: BEDSIDE GLUCOSE 387 MG/DL (83-110)
[2017-05-26 20:41] LABS: BEDSIDE GLUCOSE 393 MG/DL (83-110)
[2017-05-26] MEDS: PRAVASTATIN 20 MG TAB PO (20:48)
[2017-05-27 05:38] LABS: BASO % 0.5 % (0.0-1.0); EOS # 0.1 10^3/uL (0.0-0.50); EOS % 1.8 % (0.0-3.0); HEMATOCRIT 37.6 % (36.0-47.0); HEMOGLOBIN 11.9 g/dl (12.0-15.5); IMMATURE GRANULOCYTE % 0.5 % (0-3.0); LYMPH # 2.1 10^3/uL (1.5-4.5); LYMPH % 34.7 % (24.0-44.0); MEAN CORPUSCULAR HEMOGLOBIN 27.5 pg (27.0-33.0); MEAN CORPUSCULAR HGB CONC 31.6 g/dl (32.0-36.5); MEAN CORPUSCULAR VOLUME 86.8 fl (80.0-96.0); MONO # 0.6 10^3/uL (0.0-0.8); MONO % 10.1 % (0.0-5.0); NEUTROPHILS # 3.2 10^3/uL (1.8-7.7); NEUTROPHILS % 52.4 % (36.0-66.0); PLATELET COUNT, AUTOMATED 210 10^3/uL (150-450); RED BLOOD COUNT 4.33 10^6/uL (4.00-5.40); RED CELL DISTRIBUTION WIDTH 14.6 % (11.5-14.5); WHITE BLOOD COUNT 6.1 10^3/uL (4.0-10.0)
[2017-05-27] MEDS: SLF 3 ML SYR IV ×3 (05:55→20:31)
[2017-05-27 05:59] LABS: ANION GAP 5 MEQ/L (8-16); BLOOD UREA NITROGEN 20 MG/DL (7-18); CALCIUM LEVEL 9.3 MG/DL (8.8-10.2); CARBON DIOXIDE LEVEL 31 MEQ/L (21-32); CHLORIDE LEVEL 105 MEQ/L (98-107); CREATININE FOR GFR 1.01 MG/DL (0.55-1.30); GLOMERULAR FILTRATION RATE 57.7 (>39); GLUCOSE, FASTING 297 MG/DL (70-100); POTASSIUM SERUM 4.4 MEQ/L (3.5-5.1); SODIUM LEVEL 141 MEQ/L (136-145)
[2017-05-27] MEDS: LEVEMIR (INSULIN DETEMIR) 1 UNITS/0.01ML SC ×2 (08:50→20:30)
[2017-05-27] MEDS: HumaLOG INSULIN (NovoLOG) PER UNIT SC ×4 (08:50→20:30)
[2017-05-27] MEDS: POTASSIUM CHLORIDE 10 MEQ SR TABLET PO ×4 (08:51→20:28)
[2017-05-27] MEDS: CLOPIDOGREL 75 MG TAB PO (08:51)
[2017-05-27] MEDS: LISINOPRIL 10 MG TAB PO (08:51)
[2017-05-27] MEDS: GABAPENTIN 100 MG CAP PO ×2 (08:51→20:27)
[2017-05-27] MEDS: VITAMIN D 1,000 INTERNATIONAL UNITS TABLET PO ×2 (08:52→20:27)
[2017-05-27] MEDS: amLODIPine 10 MG TAB PO (08:52)
[2017-05-27] MEDS: ASPIRIN 81 MG ENTERIC TAB PO (08:52)
[2017-05-27] MEDS: CARVedilol 12.5 MG TAB PO ×2 (08:52→20:29)
[2017-05-27 11:46] LABS: BEDSIDE GLUCOSE 422 MG/DL (83-110)
[2017-05-27] MEDS ORDERED: ISOVUE-370 76% 100ML VIAL (Q9967) As Ordered (13:05)
[2017-05-27 17:18] LABS: BEDSIDE GLUCOSE 359 MG/DL (83-110)
[2017-05-27] MEDS: PRAVASTATIN 20 MG TAB PO (20:27)
[2017-05-27] MEDS: NYSTATIN 100,000 UNITS/GM TOPICAL PWD 15 GM TOP (20:29)
[2017-05-27 20:44] LABS: BEDSIDE GLUCOSE 428 MG/DL (83-110)
[2017-05-28] MEDS: SLF 3 ML SYR IV ×3 (05:45→20:33)
[2017-05-28 06:04] LABS: BASO % 0.5 % (0.0-1.0); EOS # 0.1 10^3/uL (0.0-0.50); EOS % 1.7 % (0.0-3.0); HEMATOCRIT 37.3 % (36.0-47.0); HEMOGLOBIN 11.9 g/dl (12.0-15.5); IMMATURE GRANULOCYTE % 0.5 % (0-3.0); LYMPH # 2.1 10^3/uL (1.5-4.5); MEAN CORPUSCULAR HEMOGLOBIN 27.4 pg (27.0-33.0); MEAN CORPUSCULAR HGB CONC 31.9 g/dl (32.0-36.5); MEAN CORPUSCULAR VOLUME 85.9 fl (80.0-96.0); MONO # 0.6 10^3/uL (0.0-0.8); MONO % 9.6 % (0.0-5.0); NEUTROPHILS # 3.5 10^3/uL (1.8-7.7); NEUTROPHILS % 54.7 % (36.0-66.0); PLATELET COUNT, AUTOMATED 204 10^3/uL (150-450); RED BLOOD COUNT 4.34 10^6/uL (4.00-5.40); RED CELL DISTRIBUTION WIDTH 14.8 % (11.5-14.5); WHITE BLOOD COUNT 6.4 10^3/uL (4.0-10.0)
[2017-05-28 06:31] LABS: ANION GAP 5 MEQ/L (8-16); BLOOD UREA NITROGEN 20 MG/DL (7-18); CALCIUM LEVEL 9.3 MG/DL (8.8-10.2); CARBON DIOXIDE LEVEL 29 MEQ/L (21-32); CHLORIDE LEVEL 106 MEQ/L (98-107); CREATININE FOR GFR 0.94 MG/DL (0.55-1.30); GLOMERULAR FILTRATION RATE > 60.0 (>39); GLUCOSE, FASTING 304 MG/DL (70-100); MAGNESIUM LEVEL 2.1 MG/DL (1.8-2.4); POTASSIUM SERUM 4.8 MEQ/L (3.5-5.1); SODIUM LEVEL 140 MEQ/L (136-145)
[2017-05-28] MEDS: HumaLOG INSULIN (NovoLOG) PER UNIT SC ×4 (07:58→20:32)
[2017-05-28] MEDS: POTASSIUM CHLORIDE 10 MEQ SR TABLET PO ×3 (07:59→20:30)
[2017-05-28] MEDS: CLOPIDOGREL 75 MG TAB PO (07:59)
[2017-05-28] MEDS: ASPIRIN 81 MG ENTERIC TAB PO (07:59)
[2017-05-28] MEDS: GABAPENTIN 100 MG CAP PO ×2 (07:59→20:30)
[2017-05-28] MEDS: VITAMIN D 1,000 INTERNATIONAL UNITS TABLET PO ×2 (08:00→20:30)
[2017-05-28] MEDS: metOLazone 5 MG TAB PO (08:00)
[2017-05-28] MEDS: LISINOPRIL 10 MG TAB PO (08:01)
[2017-05-28] MEDS: CARVedilol 12.5 MG TAB PO ×2 (08:01→20:31)
[2017-05-28] MEDS: amLODIPine 10 MG TAB PO (08:01)
[2017-05-28] MEDS: LEVEMIR (INSULIN DETEMIR) 1 UNITS/0.01ML SC ×2 (08:01→20:32)
[2017-05-28] MEDS: NYSTATIN 100,000 UNITS/GM TOPICAL PWD 15 GM TOP ×2 (08:02→20:32)
[2017-05-28] MEDS ORDERED: metOLazone 5 MG TAB PO (09:00)
[2017-05-28] MEDS: glipiZIDE 10 MG TAB PO ×2 (10:03→17:05)
[2017-05-28 12:30] LABS: BEDSIDE GLUCOSE 303 MG/DL (83-110)
[2017-05-28 14:12] LABS: ALDOS/RENIN RATIO <1.9 (0.0-30.0); ALDOSTERONE <1.0 ng/dL (0.0-30.0); RENIN ACTIVITY 0.527 ng/mL/hr (0.167-5.380)
[2017-05-28 14:12] LABS: ALDOSTERONE < 1.0 ng/dL (0.0-30.0)
[2017-05-28 17:07] LABS: BEDSIDE GLUCOSE 258 MG/DL (83-110)
[2017-05-28] MEDS ORDERED: POLYVINYL ALCOHOL OPHTH SOLN 15 ML(LIQUITEARS) OS (18:00)
[2017-05-28] MEDS: PRAVASTATIN 20 MG TAB PO (20:31)
[2017-05-28 20:46] LABS: BEDSIDE GLUCOSE 320 MG/DL (83-110)
[2017-05-29] MEDS: ACETAMINOPHEN TAB 650MG DOSE (2X325MG) PO ×2 (04:09→23:18)
[2017-05-29] MEDS: SLF 3 ML SYR IV ×3 (05:35→21:09)
[2017-05-29 05:51] LABS: BASO % 0.5 % (0.0-1.0); EOS # 0.2 10^3/uL (0.0-0.50); EOS % 1.9 % (0.0-3.0); HEMATOCRIT 40.1 % (36.0-47.0); HEMOGLOBIN 12.8 g/dl (12.0-15.5); IMMATURE GRANULOCYTE % 0.5 % (0-3.0); LYMPH # 2.8 10^3/uL (1.5-4.5); LYMPH % 36.6 % (24.0-44.0); MEAN CORPUSCULAR HEMOGLOBIN 27.5 pg (27.0-33.0); MEAN CORPUSCULAR HGB CONC 31.9 g/dl (32.0-36.5); MEAN CORPUSCULAR VOLUME 86.1 fl (80.0-96.0); MONO # 0.7 10^3/uL (0.0-0.8); NEUTROPHILS % 51.5 % (36.0-66.0); PLATELET COUNT, AUTOMATED 256 10^3/uL (150-450); RED BLOOD COUNT 4.66 10^6/uL (4.00-5.40); WHITE BLOOD COUNT 7.8 10^3/uL (4.0-10.0)
[2017-05-29 06:16] LABS: ANION GAP 5 MEQ/L (8-16); BLOOD UREA NITROGEN 22 MG/DL (7-18); CALCIUM LEVEL 9.4 MG/DL (8.8-10.2); CARBON DIOXIDE LEVEL 29 MEQ/L (21-32); CHLORIDE LEVEL 106 MEQ/L (98-107); GLOMERULAR FILTRATION RATE 58.4 (>39); GLUCOSE, FASTING 233 MG/DL (70-100); POTASSIUM SERUM 4.5 MEQ/L (3.5-5.1); SODIUM LEVEL 140 MEQ/L (136-145)
[2017-05-29] MEDS: HumaLOG INSULIN (NovoLOG) PER UNIT SC ×4 (07:42→21:00)
[2017-05-29] MEDS: glipiZIDE 10 MG TAB PO (07:42)
[2017-05-29] MEDS: POTASSIUM CHLORIDE 10 MEQ SR TABLET PO ×3 (08:57→21:08)
[2017-05-29] MEDS: VITAMIN D 1,000 INTERNATIONAL UNITS TABLET PO ×2 (08:57→21:08)
[2017-05-29] MEDS: ASPIRIN 81 MG ENTERIC TAB PO (09:00)
[2017-05-29] MEDS: GABAPENTIN 100 MG CAP PO ×2 (09:00→21:08)
[2017-05-29] MEDS: amLODIPine 10 MG TAB PO (09:00)
[2017-05-29] MEDS: CARVedilol 12.5 MG TAB PO ×2 (09:00→21:08)
[2017-05-29] MEDS: CLOPIDOGREL 75 MG TAB PO (09:00)
[2017-05-29] MEDS: LISINOPRIL 10 MG TAB PO (09:01)
[2017-05-29] MEDS: metOLazone 5 MG TAB PO (09:01)
[2017-05-29] MEDS: NYSTATIN 100,000 UNITS/GM TOPICAL PWD 15 GM TOP ×2 (09:03→21:00)
[2017-05-29] MEDS: LEVEMIR (INSULIN DETEMIR) 1 UNITS/0.01ML SC ×3 (10:00→21:09)
[2017-05-29 12:07] LABS: BEDSIDE GLUCOSE 263 MG/DL (83-110)
[2017-05-29] MEDS ORDERED: LIDOCAINE 2% INJ 100 MG/5 ML SDV (FOR ANES.) As Ordered (14:46)
[2017-05-29] MEDS ORDERED: ROCURONIUM BROMIDE 50 MG/5 ML VIAL As Ordered (14:46)
[2017-05-29] MEDS ORDERED: PHENYLEPHRINE INJ 10MG/ML VIAL (J2370) As Ordered (14:46)
[2017-05-29] MEDS ORDERED: PROPOFOL 200 MG/20 ML VIAL As Ordered (14:46)
[2017-05-29] MEDS ORDERED: fentaNYL 250 MCG/5 ML INJECTION (J3010) As Ordered (14:47)
[2017-05-29] MEDS ORDERED: REMIFENTANIL 1MG 3ML VIAL As Ordered ×2 (14:47→14:48)
[2017-05-29] MEDS ORDERED: MIDAZOLAM INJ 2 MG/2 ML VIAL (J2250) As Ordered (14:47)
[2017-05-29] MEDS ORDERED: ETOMIDATE INJ 20MG/10ML VIAL As Ordered (14:58)
[2017-05-29] MEDS: ceFAZolin 2 GM/D5W 50 ML IV BAG (J0690 PER 500MG) As Ordered (16:24)
[2017-05-29] MEDS: THROMBIN SOLN 20,000 UNITS KIT As Ordered (16:52)
[2017-05-29] MEDS ORDERED: HEPARIN SOD (PORCINE) 5000 UNITS/ML VIAL As Ordered (17:18)
[2017-05-29] MEDS: HEPARIN SOD (PORCINE) 5000 UNITS/ML VIAL As Ordered (17:23)
[2017-05-29] MEDS: glipiZIDE (GLUCOTROL) 5 MG TAB PO (17:30)
[2017-05-29] MEDS: BUPIVACAINE HCL 0.5% 30 ML VIAL As Ordered (18:27)
[2017-05-29] MEDS: LIDOCAINE 1% SDV INJ 30 ML VIAL As Ordered (18:27)
[2017-05-29] MEDS ORDERED: ONDANSETRON 4MG/2ML VIAL (J2405) IV (19:00)
[2017-05-29] MEDS ORDERED: fentaNYL 100 MCG/2 ML INJECTION (J3010) IV (19:00)
[2017-05-29] MEDS ORDERED: METOCLOPRAMIDE INJ 10MG/2ML VIAL (J2765) IV (19:00)
[2017-05-29] MEDS ORDERED: LR 1,000 ML IV (19:00)
[2017-05-29] MEDS ORDERED: fentaNYL 100 MCG/2 ML INJECTION (J3010) As Ordered (19:09)
[2017-05-29 19:15] LABS: BEDSIDE GLUCOSE 204 MG/DL (83-110)
[2017-05-29 20:26] LABS: BEDSIDE GLUCOSE 254 MG/DL (83-110)
[2017-05-29] MEDS ORDERED: NORCO, ANEXSIA 5/325MG TABLET (HYDROcodone/ACETAMINOPHEN) As Ordered (20:59)
[2017-05-29] MEDS: PRAVASTATIN 20 MG TAB PO (21:08)
[2017-05-29] MEDS: NORCO, ANEXSIA 5/325MG TABLET (HYDROcodone/ACETAMINOPHEN) PO (21:40)
[2017-05-30] MEDS: NORCO, ANEXSIA 5/325MG TABLET (HYDROcodone/ACETAMINOPHEN) PO ×4 (01:49→22:32)
[2017-05-30] MEDS: SLF 3 ML SYR IV ×3 (05:36→21:06)
[2017-05-30 05:49] LABS: BASO % 0.3 % (0.0-1.0); EOS # 0.1 10^3/uL (0.0-0.50); EOS % 0.7 % (0.0-3.0); HEMATOCRIT 35.3 % (36.0-47.0); HEMOGLOBIN 11.3 g/dl (12.0-15.5); IMMATURE GRANULOCYTE % 0.2 % (0-3.0); LYMPH # 1.5 10^3/uL (1.5-4.5); LYMPH % 15.2 % (24.0-44.0); MEAN CORPUSCULAR HEMOGLOBIN 27.8 pg (27.0-33.0); MEAN CORPUSCULAR VOLUME 86.7 fl (80.0-96.0); MONO % 10.6 % (0.0-5.0); NEUTROPHILS # 7.1 10^3/uL (1.8-7.7); PLATELET COUNT, AUTOMATED 211 10^3/uL (150-450); RED BLOOD COUNT 4.07 10^6/uL (4.00-5.40); RED CELL DISTRIBUTION WIDTH 15.1 % (11.5-14.5); WHITE BLOOD COUNT 9.7 10^3/uL (4.0-10.0)
[2017-05-30 06:08] LABS: ANION GAP 5 MEQ/L (8-16); BLOOD UREA NITROGEN 24 MG/DL (7-18); CARBON DIOXIDE LEVEL 30 MEQ/L (21-32); CHLORIDE LEVEL 102 MEQ/L (98-107); CREATININE FOR GFR 1.04 MG/DL (0.55-1.30); GLOMERULAR FILTRATION RATE 55.8 (>39); GLUCOSE, FASTING 281 MG/DL (70-100); POTASSIUM SERUM 4.8 MEQ/L (3.5-5.1); SODIUM LEVEL 137 MEQ/L (136-145)
[2017-05-30] MEDS: HumaLOG INSULIN (NovoLOG) PER UNIT SC ×4 (08:26→21:04)
[2017-05-30] MEDS: glipiZIDE (GLUCOTROL) 5 MG TAB PO ×2 (08:26→17:31)
[2017-05-30 10:17] LABS: ALDOS/RENIN RATIO <1.9 (0.0-30.0); ALDOSTERONE <1.0 ng/dL (0.0-30.0); RENIN ACTIVITY 0.535 ng/mL/hr (0.167-5.380)
[2017-05-30] MEDS: VITAMIN D 1,000 INTERNATIONAL UNITS TABLET PO ×2 (11:16→21:07)
[2017-05-30] MEDS: LISINOPRIL 10 MG TAB PO ×2 (11:17→21:09)
[2017-05-30] MEDS: CLOPIDOGREL 75 MG TAB PO (11:17)
[2017-05-30] MEDS: metOLazone 5 MG TAB PO (11:17)
[2017-05-30] MEDS: ASPIRIN 81 MG ENTERIC TAB PO (11:17)
[2017-05-30] MEDS: GABAPENTIN 100 MG CAP PO ×3 (11:17→21:09)
[2017-05-30] MEDS: amLODIPine 10 MG TAB PO (11:18)
[2017-05-30] MEDS: CARVedilol 12.5 MG TAB PO ×2 (11:18→21:10)
[2017-05-30] MEDS: POTASSIUM CHLORIDE 10% LIQ 20 MEQ/15 ML UDC PO ×2 (11:19→21:07)
[2017-05-30] MEDS: NYSTATIN 100,000 UNITS/GM TOPICAL PWD 15 GM TOP ×2 (11:19→21:11)
[2017-05-30 12:28] LABS: BEDSIDE GLUCOSE 290 MG/DL (83-110)
[2017-05-30 17:21] LABS: BEDSIDE GLUCOSE 217 MG/DL (83-110)
[2017-05-30] MEDS: PRAVASTATIN 20 MG TAB PO (21:08)
[2017-05-30] MEDS: LEVEMIR (INSULIN DETEMIR) 1 UNITS/0.01ML SC (21:10)
[2017-05-30 21:24] LABS: BEDSIDE GLUCOSE 188 MG/DL (83-110)
[2017-05-31 06:18] LABS: BASO % 0.2 % (0.0-1.0); EOS # 0.1 10^3/uL (0.0-0.50); HEMATOCRIT 31.6 % (36.0-47.0); HEMOGLOBIN 9.9 g/dl (12.0-15.5); IMMATURE GRANULOCYTE % 0.3 % (0-3.0); LYMPH % 21.7 % (24.0-44.0); MEAN CORPUSCULAR HEMOGLOBIN 27.3 pg (27.0-33.0); MEAN CORPUSCULAR HGB CONC 31.3 g/dl (32.0-36.5); MEAN CORPUSCULAR VOLUME 87.3 fl (80.0-96.0); MONO # 1.2 10^3/uL (0.0-0.8); MONO % 12.7 % (0.0-5.0); NEUTROPHILS # 5.9 10^3/uL (1.8-7.7); NEUTROPHILS % 64.1 % (36.0-66.0); PLATELET COUNT, AUTOMATED 218 10^3/uL (150-450); RED BLOOD COUNT 3.62 10^6/uL (4.00-5.40); WHITE BLOOD COUNT 9.2 10^3/uL (4.0-10.0)
[2017-05-31 06:42] LABS: ANION GAP 4 MEQ/L (8-16); BLOOD UREA NITROGEN 25 MG/DL (7-18); CARBON DIOXIDE LEVEL 32 MEQ/L (21-32); CHLORIDE LEVEL 102 MEQ/L (98-107); CREATININE FOR GFR 1.13 MG/DL (0.55-1.30); GLOMERULAR FILTRATION RATE 50.7 (>39); GLUCOSE, FASTING 149 MG/DL (70-100); POTASSIUM SERUM 3.9 MEQ/L (3.5-5.1); SODIUM LEVEL 138 MEQ/L (136-145)
[2017-05-31] MEDS: SLF 3 ML SYR IV ×3 (06:43→21:00)
[2017-05-31] MEDS: LEVEMIR (INSULIN DETEMIR) 1 UNITS/0.01ML SC ×2 (08:03→21:00)
[2017-05-31] MEDS: glipiZIDE (GLUCOTROL) 5 MG TAB PO ×2 (08:12→18:31)
[2017-05-31] MEDS: metOLazone 2.5 MG TAB PO (08:12)
[2017-05-31] MEDS: VITAMIN D 1,000 INTERNATIONAL UNITS TABLET PO ×2 (08:12→20:58)
[2017-05-31] MEDS: HumaLOG INSULIN (NovoLOG) PER UNIT SC ×4 (08:12→20:59)
[2017-05-31] MEDS: NORCO, ANEXSIA 5/325MG TABLET (HYDROcodone/ACETAMINOPHEN) PO ×2 (08:13→12:34)
[2017-05-31] MEDS: ASPIRIN 81 MG ENTERIC TAB PO (08:13)
[2017-05-31] MEDS: CLOPIDOGREL 75 MG TAB PO (08:13)
[2017-05-31] MEDS: CARVedilol 12.5 MG TAB PO ×2 (08:13→20:57)
[2017-05-31] MEDS: amLODIPine 10 MG TAB PO (08:13)
[2017-05-31] MEDS: POTASSIUM CHLORIDE 10% LIQ 20 MEQ/15 ML UDC PO ×2 (08:14→20:57)
[2017-05-31] MEDS: GABAPENTIN 100 MG CAP PO ×2 (08:14→20:58)
[2017-05-31] MEDS: LISINOPRIL 10 MG TAB PO ×2 (08:14→20:57)
[2017-05-31] MEDS: NYSTATIN 100,000 UNITS/GM TOPICAL PWD 15 GM TOP ×2 (08:14→21:00)
[2017-05-31 12:31] LABS: BEDSIDE GLUCOSE 250 MG/DL (83-110)
[2017-05-31] MEDS: ACETAMINOPHEN TAB 650MG DOSE (2X325MG) PO (14:32)
[2017-05-31 17:59] LABS: BEDSIDE GLUCOSE 284 MG/DL (83-110)
[2017-05-31 20:32] LABS: BEDSIDE GLUCOSE 291 MG/DL (83-110)
[2017-05-31] MEDS: PRAVASTATIN 20 MG TAB PO (20:58)
[2017-06-01] MEDS: SLF 3 ML SYR IV ×3 (05:20→20:15)
[2017-06-01 05:45] LABS: BASO % 0.2 % (0.0-1.0); EOS # 0.1 10^3/uL (0.0-0.50); EOS % 1.2 % (0.0-3.0); HEMATOCRIT 32.2 % (36.0-47.0); HEMOGLOBIN 10.2 g/dl (12.0-15.5); IMMATURE GRANULOCYTE % 0.6 % (0-3.0); LYMPH # 2.1 10^3/uL (1.5-4.5); LYMPH % 25.2 % (24.0-44.0); MEAN CORPUSCULAR HEMOGLOBIN 27.6 pg (27.0-33.0); MEAN CORPUSCULAR HGB CONC 31.7 g/dl (32.0-36.5); MEAN CORPUSCULAR VOLUME 87.3 fl (80.0-96.0); MONO % 12.1 % (0.0-5.0); NEUTROPHILS # 4.9 10^3/uL (1.8-7.7); NEUTROPHILS % 60.7 % (36.0-66.0); PLATELET COUNT, AUTOMATED 244 10^3/uL (150-450); RED BLOOD COUNT 3.69 10^6/uL (4.00-5.40); WHITE BLOOD COUNT 8.1 10^3/uL (4.0-10.0)
[2017-06-01 06:02] LABS: ANION GAP 4 MEQ/L (8-16); BLOOD UREA NITROGEN 28 MG/DL (7-18); CALCIUM LEVEL 9.3 MG/DL (8.8-10.2); CARBON DIOXIDE LEVEL 31 MEQ/L (21-32); CHLORIDE LEVEL 102 MEQ/L (98-107); CREATININE FOR GFR 1.04 MG/DL (0.55-1.30); GLOMERULAR FILTRATION RATE 55.8 (>39); GLUCOSE, FASTING 218 MG/DL (70-100); POTASSIUM SERUM 4.1 MEQ/L (3.5-5.1); SODIUM LEVEL 137 MEQ/L (136-145)
[2017-06-01] MEDS: NORCO, ANEXSIA 5/325MG TABLET (HYDROcodone/ACETAMINOPHEN) PO ×2 (06:52→13:16)
[2017-06-01] MEDS: VITAMIN D 1,000 INTERNATIONAL UNITS TABLET PO ×2 (08:15→20:12)
[2017-06-01] MEDS: glipiZIDE (GLUCOTROL) 5 MG TAB PO ×2 (08:15→17:50)
[2017-06-01] MEDS: POTASSIUM CHLORIDE 10% LIQ 20 MEQ/15 ML UDC PO ×2 (08:15→20:11)
[2017-06-01] MEDS: CLOPIDOGREL 75 MG TAB PO (08:15)
[2017-06-01] MEDS: LISINOPRIL 10 MG TAB PO ×2 (08:16→20:13)
[2017-06-01] MEDS: GABAPENTIN 100 MG CAP PO ×2 (08:16→20:12)
[2017-06-01] MEDS: amLODIPine 10 MG TAB PO (08:16)
[2017-06-01] MEDS: ASPIRIN 81 MG ENTERIC TAB PO (08:17)
[2017-06-01] MEDS: LEVEMIR (INSULIN DETEMIR) 1 UNITS/0.01ML SC ×2 (08:18→20:13)
[2017-06-01] MEDS: CARVedilol 12.5 MG TAB PO ×2 (08:18→20:12)
[2017-06-01] MEDS: metOLazone 2.5 MG TAB PO (08:18)
[2017-06-01] MEDS: NYSTATIN 100,000 UNITS/GM TOPICAL PWD 15 GM TOP ×2 (08:18→20:15)
[2017-06-01] MEDS: HumaLOG INSULIN (NovoLOG) PER UNIT SC ×4 (08:19→20:14)
[2017-06-01 12:50] LABS: BEDSIDE GLUCOSE 296 MG/DL (83-110)
[2017-06-01] MEDS: ACETAMINOPHEN TAB 650MG DOSE (2X325MG) PO ×2 (15:15→22:11)
[2017-06-01 17:12] LABS: BEDSIDE GLUCOSE 262 MG/DL (83-110)
[2017-06-01] MEDS: PRAVASTATIN 20 MG TAB PO (20:12)
[2017-06-01 20:19] LABS: BEDSIDE GLUCOSE 287 MG/DL (83-110)
[2017-06-02 05:51] LABS: BASO % 0.3 % (0.0-1.0); EOS # 0.1 10^3/uL (0.0-0.50); EOS % 1.7 % (0.0-3.0); HEMOGLOBIN 9.7 g/dl (12.0-15.5); IMMATURE GRANULOCYTE % 0.3 % (0-3.0); LYMPH # 2.2 10^3/uL (1.5-4.5); LYMPH % 33.9 % (24.0-44.0); MEAN CORPUSCULAR HEMOGLOBIN 27.6 pg (27.0-33.0); MEAN CORPUSCULAR HGB CONC 31.3 g/dl (32.0-36.5); MEAN CORPUSCULAR VOLUME 88.1 fl (80.0-96.0); MONO # 0.8 10^3/uL (0.0-0.8); MONO % 12.3 % (0.0-5.0); NEUTROPHILS # 3.3 10^3/uL (1.8-7.7); NEUTROPHILS % 51.5 % (36.0-66.0); PLATELET COUNT, AUTOMATED 242 10^3/uL (150-450); RED BLOOD COUNT 3.52 10^6/uL (4.00-5.40); RED CELL DISTRIBUTION WIDTH 14.7 % (11.5-14.5); WHITE BLOOD COUNT 6.4 10^3/uL (4.0-10.0)
[2017-06-02] MEDS: ACETAMINOPHEN TAB 650MG DOSE (2X325MG) PO (05:52)
[2017-06-02] MEDS: SLF 3 ML SYR IV ×3 (05:53→20:32)
[2017-06-02 06:10] LABS: ANION GAP 4 MEQ/L (8-16); BLOOD UREA NITROGEN 24 MG/DL (7-18); CALCIUM LEVEL 9.2 MG/DL (8.8-10.2); CARBON DIOXIDE LEVEL 31 MEQ/L (21-32); CHLORIDE LEVEL 104 MEQ/L (98-107); GLOMERULAR FILTRATION RATE > 60.0 (>39); GLUCOSE, FASTING 204 MG/DL (70-100); POTASSIUM SERUM 4.1 MEQ/L (3.5-5.1); SODIUM LEVEL 139 MEQ/L (136-145)
[2017-06-02] MEDS: glipiZIDE (GLUCOTROL) 5 MG TAB PO ×2 (07:47→18:46)
[2017-06-02] MEDS: HumaLOG INSULIN (NovoLOG) PER UNIT SC ×4 (07:47→21:43)
[2017-06-02] MEDS: NYSTATIN 100,000 UNITS/GM TOPICAL PWD 15 GM TOP ×2 (09:00→20:31)
[2017-06-02] MEDS: POTASSIUM CHLORIDE 10% LIQ 20 MEQ/15 ML UDC PO ×2 (09:50→20:28)
[2017-06-02] MEDS: ASPIRIN 81 MG ENTERIC TAB PO (09:51)
[2017-06-02] MEDS: CLOPIDOGREL 75 MG TAB PO (09:51)
[2017-06-02] MEDS: VITAMIN D 1,000 INTERNATIONAL UNITS TABLET PO ×2 (09:51→20:29)
[2017-06-02] MEDS: metOLazone 5 MG TAB PO (09:51)
[2017-06-02] MEDS: LEVEMIR (INSULIN DETEMIR) 1 UNITS/0.01ML SC ×2 (09:51→21:44)
[2017-06-02] MEDS: CARVedilol 12.5 MG TAB PO ×2 (09:51→20:30)
[2017-06-02] MEDS: amLODIPine 10 MG TAB PO (09:52)
[2017-06-02] MEDS: LISINOPRIL 10 MG TAB PO ×2 (09:52→20:30)
[2017-06-02] MEDS: GABAPENTIN 100 MG CAP PO ×2 (09:54→20:30)
[2017-06-02] MEDS: NORCO, ANEXSIA 5/325MG TABLET (HYDROcodone/ACETAMINOPHEN) PO ×3 (10:31→20:29)
[2017-06-02 11:37] LABS: BEDSIDE GLUCOSE 296 MG/DL (83-110)
[2017-06-02 17:23] LABS: BEDSIDE GLUCOSE 338 MG/DL (83-110)
[2017-06-02] MEDS: PRAVASTATIN 20 MG TAB PO (20:29)
[2017-06-02 21:37] LABS: BEDSIDE GLUCOSE 358 MG/DL (83-110)
[2017-06-03] MEDS: SLF 3 ML SYR IV ×3 (06:13→21:31)
[2017-06-03 06:32] LABS: BEDSIDE GLUCOSE 246 MG/DL (83-110)
[2017-06-03] MEDS: NYSTATIN 100,000 UNITS/GM TOPICAL PWD 15 GM TOP ×2 (09:00→21:00)
[2017-06-03] MEDS: POTASSIUM CHLORIDE 10% LIQ 20 MEQ/15 ML UDC PO ×2 (09:39→21:27)
[2017-06-03] MEDS: CARVedilol 12.5 MG TAB PO ×2 (09:40→21:26)
[2017-06-03] MEDS: CLOPIDOGREL 75 MG TAB PO (09:40)
[2017-06-03] MEDS: GABAPENTIN 100 MG CAP PO ×2 (09:40→21:27)
[2017-06-03] MEDS: LISINOPRIL 10 MG TAB PO ×2 (09:41→21:27)
[2017-06-03] MEDS: glipiZIDE (GLUCOTROL) 5 MG TAB PO ×2 (09:41→16:54)
[2017-06-03] MEDS: VITAMIN D 1,000 INTERNATIONAL UNITS TABLET PO ×2 (09:41→21:27)
[2017-06-03] MEDS: amLODIPine 10 MG TAB PO (09:41)
[2017-06-03] MEDS: ASPIRIN 81 MG ENTERIC TAB PO (09:41)
[2017-06-03] MEDS: metOLazone 5 MG TAB PO (09:41)
[2017-06-03] MEDS: LEVEMIR (INSULIN DETEMIR) 1 UNITS/0.01ML SC ×2 (09:42→21:29)
[2017-06-03] MEDS: HumaLOG INSULIN (NovoLOG) PER UNIT SC ×4 (09:42→21:28)
[2017-06-03] MEDS: ACETAMINOPHEN TAB 650MG DOSE (2X325MG) PO ×2 (09:48→16:55)
[2017-06-03 12:20] LABS: BEDSIDE GLUCOSE 292 MG/DL (83-110)
[2017-06-03 17:07] LABS: BEDSIDE GLUCOSE 344 MG/DL (83-110)
[2017-06-03] MEDS: PRAVASTATIN 20 MG TAB PO (21:27)
[2017-06-03] MEDS: NORCO, ANEXSIA 5/325MG TABLET (HYDROcodone/ACETAMINOPHEN) PO (21:42)
[2017-06-04] MEDS: SLF 3 ML SYR IV (05:34)
[2017-06-04 07:33] LABS: BEDSIDE GLUCOSE 274 MG/DL (83-110)
[2017-06-04 08:04] LABS: BEDSIDE GLUCOSE 404 MG/DL (83-110)
[2017-06-04] MEDS: LISINOPRIL 10 MG TAB PO (08:15)
[2017-06-04] MEDS: CLOPIDOGREL 75 MG TAB PO (08:15)
[2017-06-04] MEDS: VITAMIN D 1,000 INTERNATIONAL UNITS TABLET PO (08:15)
[2017-06-04] MEDS: ASPIRIN 81 MG ENTERIC TAB PO (08:16)
[2017-06-04] MEDS: amLODIPine 10 MG TAB PO (08:16)
[2017-06-04] MEDS: glipiZIDE (GLUCOTROL) 5 MG TAB PO (08:16)
[2017-06-04] MEDS: metOLazone 5 MG TAB PO (08:16)
[2017-06-04] MEDS: NORCO, ANEXSIA 5/325MG TABLET (HYDROcodone/ACETAMINOPHEN) PO (08:17)
[2017-06-04] MEDS: POTASSIUM CHLORIDE 10% LIQ 20 MEQ/15 ML UDC PO (08:18)
[2017-06-04] MEDS: GABAPENTIN 100 MG CAP PO (08:18)
[2017-06-04] MEDS: CARVedilol 12.5 MG TAB PO (08:18)
[2017-06-04] MEDS: LEVEMIR (INSULIN DETEMIR) 1 UNITS/0.01ML SC (08:19)
[2017-06-04] MEDS: NYSTATIN 100,000 UNITS/GM TOPICAL PWD 15 GM TOP (08:19)
[2017-06-04] MEDS: HumaLOG INSULIN (NovoLOG) PER UNIT SC ×2 (08:19→12:11)
[2017-06-04 11:56] LABS: BEDSIDE GLUCOSE 395 MG/DL (83-110)
== END 2017-06-04 14:37 | disposition home health service (06) | DRG 38 ==
LOC: M MSPAV 05-24 16:18 → M ED 11:18 → M ED INP 15:09 → M PCU 17:29
PROC: 03CK0ZZ Extirpation of Matter from Right Internal Carotid Artery, Open Approach (ICD-10-PCS; principal; 2017-05-29 16:12)
PROC: 03UK0KZ Supplement Right Internal Carotid Artery with Nonautologous Tissue Substitute, Open Approach (ICD-10-PCS; 2017-05-29 16:12)
PROC: 03H Upper Arteries, Insertion (ICD-10-PCS; 2017-05-29 16:12)
PROC: 03CH0ZZ Extirpation of Matter from Right Common Carotid Artery, Open Approach (ICD-10-PCS; 2017-05-29 16:12)
DX: I63.231 Cerebral infarction due to unspecified occlusion or stenosis of right carotid arteries (principal); N17.9 Acute kidney failure, unspecified; E24.9 Cushing's syndrome, unspecified; I13.0 Hypertensive heart and chronic kidney disease with heart failure and stage 1 through stage 4 chronic kidney disease, or unspecified chronic kidney disease; G47.33 Obstructive sleep apnea (adult) (pediatric); E87.6 Hypokalemia; I25.10 Atherosclerotic heart disease of native coronary artery without angina pectoris; E11.22 Type 2 diabetes mellitus with diabetic chronic kidney disease; M62.81 Muscle weakness (generalized); E78.5 Hyperlipidemia, unspecified; R26.89 Other abnormalities of gait and mobility; E11.40 Type 2 diabetes mellitus with diabetic neuropathy, unspecified; I27.29 Other secondary pulmonary hypertension; I50.810 Right heart failure, unspecified; N18.9 Chronic kidney disease, unspecified; E11.649 Type 2 diabetes mellitus with hypoglycemia without coma; E66.9 Obesity, unspecified; Z93.2 Ileostomy status; Z87.891 Personal history of nicotine dependence; Z85.51 Personal history of malignant neoplasm of bladder; Z79.4 Long term (current) use of insulin; Z79.82 Long term (current) use of aspirin; Z79.899 Other long term (current) drug therapy; Z68.34 Body mass index [BMI] 34.0-34.9, adult

== ENCOUNTER → 2017-06-18 | Outpatient (REF) | payer OTHER ==
[2017-06-18 19:50] LABS: ALBUMIN 3.8 GM/DL (3.2-5.2); ANION GAP 9 MEQ/L (8-16); BLOOD UREA NITROGEN 30 MG/DL (7-18); CALCIUM LEVEL 9.1 MG/DL (8.8-10.2); CARBON DIOXIDE LEVEL 30 MEQ/L (21-32); CHLORIDE LEVEL 106 MEQ/L (98-107); CREATININE FOR GFR 1.07 MG/DL (0.55-1.30); GLUCOSE, FASTING 116 MG/DL (70-100); PHOSPHORUS LEVEL 3.9 MG/DL (2.5-4.9); POTASSIUM SERUM 4.1 MEQ/L (3.5-5.1); SODIUM LEVEL 145 MEQ/L (136-145)
== END ==
LOC: M LABDRAW1 15:40
DX: R60.9 Edema, unspecified (principal)
CPT/HCPCS: 80069

== ENCOUNTER → 2017-07-12 | Outpatient (CLI) | payer OTHER ==
[2017-07-12 15:51] LABS: ALBUMIN 3.6 GM/DL (3.2-5.2); ANION GAP 5 MEQ/L (8-16); BLOOD UREA NITROGEN 30 MG/DL (7-18); CALCIUM LEVEL 9.3 MG/DL (8.8-10.2); CARBON DIOXIDE LEVEL 34 MEQ/L (21-32); CHLORIDE LEVEL 102 MEQ/L (98-107); CREATININE FOR GFR 1.13 MG/DL (0.55-1.30); GLOMERULAR FILTRATION RATE 50.7 (>39); GLUCOSE, FASTING 246 MG/DL (70-100); PHOSPHORUS LEVEL 3.6 MG/DL (2.5-4.9); POTASSIUM SERUM 4.4 MEQ/L (3.5-5.1); SODIUM LEVEL 141 MEQ/L (136-145)
== END ==
LOC: M LAB 14:29
DX: I25.10 Atherosclerotic heart disease of native coronary artery without angina pectoris (principal)

== ENCOUNTER → 2017-07-12 | Outpatient (CLI) | payer OTHER ==
[2017-07-12 15:51] LABS: ANION GAP 6 MEQ/L (8-16); BLOOD UREA NITROGEN 29 MG/DL (7-18); CALCIUM LEVEL 9.2 MG/DL (8.8-10.2); CARBON DIOXIDE LEVEL 33 MEQ/L (21-32); CHLORIDE LEVEL 102 MEQ/L (98-107); CREATININE FOR GFR 1.11 MG/DL (0.55-1.30); GLOMERULAR FILTRATION RATE 51.7 (>39); GLUCOSE, FASTING 243 MG/DL (70-100); POTASSIUM SERUM 4.4 MEQ/L (3.5-5.1); SODIUM LEVEL 141 MEQ/L (136-145)
[2017-07-12 15:54] LABS: HEMATOCRIT 38.1 % (36.0-47.0); HEMOGLOBIN 12.4 g/dl (12.0-15.5); MEAN CORPUSCULAR HEMOGLOBIN 29.2 pg (27.0-33.0); MEAN CORPUSCULAR HGB CONC 32.5 g/dl (32.0-36.5); MEAN CORPUSCULAR VOLUME 89.9 fl (80.0-96.0); PLATELET COUNT, AUTOMATED 242 10^3/uL (150-450); RED BLOOD COUNT 4.24 10^6/uL (4.00-5.40); RED CELL DISTRIBUTION WIDTH 15.1 % (11.5-14.5); WHITE BLOOD COUNT 8.4 10^3/uL (4.0-10.0)
== END ==
LOC: M LAB 14:32
DX: Z85.51 Personal history of malignant neoplasm of bladder (principal)

== ENCOUNTER → 2017-07-12 | Outpatient (CLI) | payer OTHER ==
[2017-07-12 15:50] LABS: ANION GAP 5 MEQ/L (8-16); BLOOD UREA NITROGEN 28 MG/DL (7-18); CALCIUM LEVEL 9.1 MG/DL (8.8-10.2); CARBON DIOXIDE LEVEL 34 MEQ/L (21-32); CHLORIDE LEVEL 102 MEQ/L (98-107); CREATININE FOR GFR 1.11 MG/DL (0.55-1.30); GLOMERULAR FILTRATION RATE 51.7 (>39); GLUCOSE, FASTING 243 MG/DL (70-100); POTASSIUM SERUM 4.3 MEQ/L (3.5-5.1); SODIUM LEVEL 141 MEQ/L (136-145)
== END ==
LOC: M LAB 14:35
DX: E11.65 Type 2 diabetes mellitus with hyperglycemia (principal)

== ENCOUNTER → 2017-07-12 | Outpatient (CLI) | payer OTHER | LOC: M RAD 13:19 | DX: I65.23 Occlusion and stenosis of bilateral carotid arteries (principal); I25.10 Atherosclerotic heart disease of native coronary artery without angina pectoris; E11.65 Type 2 diabetes mellitus with hyperglycemia; Z85.51 Personal history of malignant neoplasm of bladder | CPT/HCPCS: 93880 ==

== ENCOUNTER → 2017-09-19 | Outpatient (CLI) | payer OTHER ==
[2017-09-19 15:52] LABS: ANION GAP 6 MEQ/L (8-16); BLOOD UREA NITROGEN 29 MG/DL (7-18); CALCIUM LEVEL 8.6 MG/DL (8.8-10.2); CARBON DIOXIDE LEVEL 36 MEQ/L (21-32); CHLORIDE LEVEL 101 MEQ/L (98-107); CREATININE FOR GFR 1.28 MG/DL (0.55-1.30); GLOMERULAR FILTRATION RATE 43.9 (>39); GLUCOSE, FASTING 307 MG/DL (70-100); POTASSIUM SERUM 3.5 MEQ/L (3.5-5.1); SODIUM LEVEL 143 MEQ/L (136-145)
== END ==
LOC: M LAB 14:41
DX: E24.9 Cushing's syndrome, unspecified (principal)
CPT/HCPCS: 80048

== ENCOUNTER 2017-10-21 11:45 | Inpatient (IN) | payer OTHER ==
[2017-10-21 12:39] LABS: BASO % 0.4 % (0.0-1.0); EOS # 0.1 10^3/uL (0.0-0.50); EOS % 1.1 % (0.0-3.0); HEMATOCRIT 35.8 % (36.0-47.0); HEMOGLOBIN 11.7 g/dl (12.0-15.5); IMMATURE GRANULOCYTE % 0.5 % (0-3.0); LYMPH # 1.6 10^3/uL (1.5-4.5); LYMPH % 17.4 % (24.0-44.0); MEAN CORPUSCULAR HEMOGLOBIN 30.9 pg (27.0-33.0); MEAN CORPUSCULAR HGB CONC 32.7 g/dl (32.0-36.5); MEAN CORPUSCULAR VOLUME 94.5 fl (80.0-96.0); MONO # 0.9 10^3/uL (0.0-0.8); MONO % 10.1 % (0.0-5.0); NEUTROPHILS # 6.5 10^3/uL (1.8-7.7); NEUTROPHILS % 70.5 % (36.0-66.0); PLATELET COUNT, AUTOMATED 251 10^3/uL (150-450); RED BLOOD COUNT 3.79 10^6/uL (4.00-5.40); RED CELL DISTRIBUTION WIDTH 14.1 % (11.5-14.5); WHITE BLOOD COUNT 9.2 10^3/uL (4.0-10.0)
[2017-10-21] MEDS: FUROSEMIDE 100 MG/10 ML VIAL (J1940) IV (12:41)
[2017-10-21 12:44] LABS: INR 1.04; PROTHROMBIN TIME 13.7 SECONDS (12.1-14.4)
[2017-10-21 12:48] LABS: LACTIC ACID SEPSIS PROTOCOL 1.3 MMOL/L (0.4-2.0)
[2017-10-21 12:58] LABS: ALBUMIN 2.7 GM/DL (3.2-5.2); ALBUMIN/GLOBULIN RATIO 0.73 (1.00-1.93); ALKALINE PHOSPHATASE 48 U/L (45-117); ALT/SGPT 18 U/L (12-78); ANION GAP 10 MEQ/L (8-16); AST/SGOT 21 U/L (7-37); BILIRUBIN,DIRECT 0.2 MG/DL (0.0-0.2); BILIRUBIN,TOTAL 0.7 MG/DL (0.2-1.0); BLOOD UREA NITROGEN 21 MG/DL (7-18); CALCIUM LEVEL 8.4 MG/DL (8.8-10.2); CARBON DIOXIDE LEVEL 38 MEQ/L (21-32); CHLORIDE LEVEL 92 MEQ/L (98-107); CPK CREATINE PHOSPHOKINASE 312 U/L (26-192); CREATININE FOR GFR 1.08 MG/DL (0.55-1.30); GLOMERULAR FILTRATION RATE 53.4 (>39); GLUCOSE, FASTING 189 MG/DL (70-100); MB/CK RELATIVE INDEX 0.61 (< OR =4); NT-PRO BNP 297 PG/ML (<125); POTASSIUM SERUM 2.4 MEQ/L (3.5-5.1); SODIUM LEVEL 140 MEQ/L (136-145); TOTAL PROTEIN 6.4 GM/DL (6.4-8.2); TROPONIN I < 0.02 NG/ML (< 0.10)
[2017-10-21] MEDS: IPRATROPIUM 0.5MG/ALBUTEROL 2.5MG INH SOL UD 3ML (DUONEB)(J7620) NEB ×2 (13:00→13:22)
[2017-10-21 13:03] LABS: ABG BASE EXCESS 19.3 (-2.0-2.0); ABG HCO3 44.9 MEQ/L (22.0-26.0); ABG O2 SATURATION 95.1 % (95.0-99.0); ABG PARTIAL PRESSURE CO2 55.1 mmHg (35.0-45.0); ABG PARTIAL PRESSURE O2 70.9 mmHg (75.0-100.0); ABG STANDARD HCO3 43.5 MEQ/L (22.0-26.0); ABG TOTAL CO2 46.6 MEQ/L (23.0-31.0); ABG pH (ARTERIAL) 7.529 UNITS (7.350-7.450)
[2017-10-21] MEDS: KCL 10MEQ/100ML SWI (KRUN) 10 MEQ in APPROPRIATE DILUENT 1 EA IV ×6 (13:40→23:39)
[2017-10-21] MEDS: POTASSIUM CHLORIDE 10 MEQ SR TABLET PO ×3 (13:41→23:38)
[2017-10-21] MEDS ORDERED: ISOVUE-370 76% 100ML VIAL (Q9967) As Ordered (14:09)
[2017-10-21] MEDS ORDERED: GLUCOSE 4 GM CHEW TABLET PO (14:15)
[2017-10-21] MEDS ORDERED: GLUCAGON FOR INJ 1 MG VIAL (J1610) SC (14:15)
[2017-10-21] MEDS ORDERED: DEXTROSE 50% 50 ML SYRINGE IV (14:15)
[2017-10-21 14:18] LABS: MAGNESIUM LEVEL 2.1 MG/DL (1.8-2.4)
[2017-10-21] MEDS: HumaLOG INSULIN (NovoLOG) PER UNIT SC ×2 (17:30→21:00)
[2017-10-21 17:55] LABS: BEDSIDE GLUCOSE 97 MG/DL (83-110)
[2017-10-21] MEDS: FUROSEMIDE 40 MG/4 ML VIAL (J1940) IV (18:02)
[2017-10-21] MEDS: metOLazone 5 MG TAB PO (18:02)
[2017-10-21] MEDS: ACETAMINOPHEN TAB 650MG DOSE (2X325MG) PO (18:37)
[2017-10-21 18:51] LABS: ANION GAP 5 MEQ/L (8-16); BLOOD UREA NITROGEN 16 MG/DL (7-18); CALCIUM LEVEL 8.7 MG/DL (8.8-10.2); CARBON DIOXIDE LEVEL 44 MEQ/L (21-32); CHLORIDE LEVEL 93 MEQ/L (98-107); CPK CREATINE PHOSPHOKINASE 289 U/L (26-192); CREATININE FOR GFR 1.04 MG/DL (0.55-1.30); GLOMERULAR FILTRATION RATE 55.8 (>39); GLUCOSE, FASTING 92 MG/DL (70-100); MAGNESIUM LEVEL 2.1 MG/DL (1.8-2.4); MB/CK RELATIVE INDEX 0.42 (< OR =4); SODIUM LEVEL 142 MEQ/L (136-145); TROPONIN I 0.02 NG/ML (< 0.10)
[2017-10-21 19:58] LABS: BEDSIDE GLUCOSE 158 MG/DL (83-110)
[2017-10-21] MEDS: PRAVASTATIN 20 MG TAB PO (21:09)
[2017-10-21] MEDS: VITAMIN D 1,000 INTERNATIONAL UNITS TABLET PO (21:10)
[2017-10-21] MEDS: CARVedilol 6.25 MG TAB PO (21:10)
[2017-10-21] MEDS: GABAPENTIN 100 MG CAP PO (21:10)
[2017-10-21] MEDS: SENOKOT S TAB PO (21:10)
[2017-10-21] MEDS: HEPARIN SOD (PORCINE) 5000 UNITS/ML VIAL SC (21:10)
[2017-10-21] MEDS: LEVEMIR (INSULIN DETEMIR) 1 UNITS/0.01ML SC (21:11)
[2017-10-21] MEDS ORDERED: PILL CRUSHER/CUTTER 1 EACH XX (21:15)
[2017-10-21] MEDS: tiZANidine 4 MG TAB PO (22:11)
[2017-10-21 22:52] LABS: ANION GAP 8 MEQ/L (8-16); BLOOD UREA NITROGEN 16 MG/DL (7-18); CALCIUM LEVEL 8.8 MG/DL (8.8-10.2); CARBON DIOXIDE LEVEL 43 MEQ/L (21-32); CHLORIDE LEVEL 90 MEQ/L (98-107); CREATININE FOR GFR 1.03 MG/DL (0.55-1.30); GLOMERULAR FILTRATION RATE 56.4 (>39); GLUCOSE, FASTING 143 MG/DL (70-100); POTASSIUM SERUM 1.9 MEQ/L (3.5-5.1); SODIUM LEVEL 141 MEQ/L (136-145)
[2017-10-21] MEDS ORDERED: KCL 10MEQ/100ML SWI (KRUN) 10 MEQ in APPROPRIATE DILUENT 1 EA IV (23:15)
[2017-10-22] MEDS: POTASSIUM CHLORIDE 10 MEQ SR TABLET PO ×7 (00:58→22:39)
[2017-10-22] MEDS: KCL 10MEQ/100ML SWI (KRUN) 10 MEQ in APPROPRIATE DILUENT 1 EA IV ×2 (00:58→02:20)
[2017-10-22] MEDS: ACETAMINOPHEN TAB 650MG DOSE (2X325MG) PO ×2 (01:21→06:15)
[2017-10-22 01:31] LABS: ANION GAP 7 MEQ/L (8-16); BLOOD UREA NITROGEN 17 MG/DL (7-18); CALCIUM LEVEL 8.5 MG/DL (8.8-10.2); CARBON DIOXIDE LEVEL 43 MEQ/L (21-32); CHLORIDE LEVEL 89 MEQ/L (98-107); CK-MB VALUE MASS < 1.0 NG/ML (<3.6); CPK CREATINE PHOSPHOKINASE 257 U/L (26-192); CREATININE FOR GFR 1.08 MG/DL (0.55-1.30); GLOMERULAR FILTRATION RATE 53.4 (>39); GLUCOSE, FASTING 210 MG/DL (70-100); MB/CK RELATIVE INDEX 0.39 (< OR =4); POTASSIUM SERUM 2.4 MEQ/L (3.5-5.1); SODIUM LEVEL 139 MEQ/L (136-145); TROPONIN I 0.02 NG/ML (< 0.10)
[2017-10-22] MEDS: ONDANSETRON 4MG/2ML VIAL (J2405) IV (04:38)
[2017-10-22] MEDS: ANALGESIC BALM CRM 120 GM TOP (04:38)
[2017-10-22 05:49] LABS: HEMATOCRIT 33.9 % (36.0-47.0); HEMOGLOBIN 10.8 g/dl (12.0-15.5); MEAN CORPUSCULAR HEMOGLOBIN 30.3 pg (27.0-33.0); MEAN CORPUSCULAR HGB CONC 31.9 g/dl (32.0-36.5); PLATELET COUNT, AUTOMATED 235 10^3/uL (150-450); RED BLOOD COUNT 3.57 10^6/uL (4.00-5.40); RED CELL DISTRIBUTION WIDTH 13.9 % (11.5-14.5); WHITE BLOOD COUNT 6.2 10^3/uL (4.0-10.0)
[2017-10-22] MEDS: FUROSEMIDE 40 MG/4 ML VIAL (J1940) IV (06:13)
[2017-10-22] MEDS: HEPARIN SOD (PORCINE) 5000 UNITS/ML VIAL SC ×3 (06:14→20:57)
[2017-10-22] MEDS: tiZANidine 4 MG TAB PO ×3 (06:14→20:57)
[2017-10-22 06:25] LABS: ALBUMIN 2.4 GM/DL (3.2-5.2); ALBUMIN/GLOBULIN RATIO 0.55 (1.00-1.93); ALKALINE PHOSPHATASE 48 U/L (45-117); ALT/SGPT 19 U/L (12-78); ANION GAP 8 MEQ/L (8-16); AST/SGOT 20 U/L (7-37); BILIRUBIN,TOTAL 0.7 MG/DL (0.2-1.0); BLOOD UREA NITROGEN 18 MG/DL (7-18); CALCIUM LEVEL 8.6 MG/DL (8.8-10.2); CARBON DIOXIDE LEVEL 41 MEQ/L (21-32); CHLORIDE LEVEL 91 MEQ/L (98-107); CREATININE FOR GFR 1.23 MG/DL (0.55-1.30); GLUCOSE, FASTING 225 MG/DL (70-100); MAGNESIUM LEVEL 2.2 MG/DL (1.8-2.4); POTASSIUM SERUM 2.9 MEQ/L (3.5-5.1); SODIUM LEVEL 140 MEQ/L (136-145); TOTAL PROTEIN 6.8 GM/DL (6.4-8.2)
[2017-10-22] MEDS: HumaLOG INSULIN (NovoLOG) PER UNIT SC ×4 (08:43→20:49)
[2017-10-22] MEDS: LISINOPRIL 10 MG TAB PO (08:44)
[2017-10-22] MEDS: CLOPIDOGREL 75 MG TAB PO (08:44)
[2017-10-22] MEDS: GABAPENTIN 100 MG CAP PO ×2 (08:44→20:57)
[2017-10-22] MEDS: VITAMIN D 1,000 INTERNATIONAL UNITS TABLET PO ×2 (08:44→20:57)
[2017-10-22] MEDS: metOLazone 5 MG TAB PO (08:45)
[2017-10-22] MEDS: SPIRONOLACTONE 25 MG TAB PO (08:45)
[2017-10-22] MEDS: CARVedilol 6.25 MG TAB PO ×2 (08:45→20:58)
[2017-10-22] MEDS: SENOKOT S TAB PO ×2 (08:45→20:57)
[2017-10-22] MEDS: ASPIRIN 81 MG ENTERIC TAB PO (08:45)
[2017-10-22 11:07] LABS: MAGNESIUM LEVEL 2.1 MG/DL (1.8-2.4)
[2017-10-22 11:35] LABS: ANION GAP 7 MEQ/L (8-16); BLOOD UREA NITROGEN 19 MG/DL (7-18); CALCIUM LEVEL 8.4 MG/DL (8.8-10.2); CARBON DIOXIDE LEVEL 44 MEQ/L (21-32); CHLORIDE LEVEL 89 MEQ/L (98-107); CREATININE FOR GFR 1.37 MG/DL (0.55-1.30); GLOMERULAR FILTRATION RATE 40.6 (>39); GLUCOSE, FASTING 253 MG/DL (70-100); POTASSIUM SERUM 2.8 MEQ/L (3.5-5.1); SODIUM LEVEL 140 MEQ/L (136-145)
[2017-10-22 12:06] LABS: BEDSIDE GLUCOSE 251 MG/DL (83-110)
[2017-10-22 15:48] LABS: ANION GAP 7 MEQ/L (8-16); BLOOD UREA NITROGEN 20 MG/DL (7-18); CALCIUM LEVEL 8.5 MG/DL (8.8-10.2); CARBON DIOXIDE LEVEL 42 MEQ/L (21-32); CHLORIDE LEVEL 92 MEQ/L (98-107); CREATININE FOR GFR 1.39 MG/DL (0.55-1.30); GLOMERULAR FILTRATION RATE 39.9 (>39); GLUCOSE, FASTING 192 MG/DL (70-100); POTASSIUM SERUM 3.1 MEQ/L (3.5-5.1); SODIUM LEVEL 141 MEQ/L (136-145)
[2017-10-22 16:51] LABS: BEDSIDE GLUCOSE 221 MG/DL (83-110)
[2017-10-22 19:09] LABS: ANION GAP 5 MEQ/L (8-16); BLOOD UREA NITROGEN 21 MG/DL (7-18); CALCIUM LEVEL 8.6 MG/DL (8.8-10.2); CARBON DIOXIDE LEVEL 43 MEQ/L (21-32); CHLORIDE LEVEL 93 MEQ/L (98-107); CREATININE FOR GFR 1.39 MG/DL (0.55-1.30); GLOMERULAR FILTRATION RATE 39.9 (>39); GLUCOSE, FASTING 220 MG/DL (70-100); MAGNESIUM LEVEL 2.4 MG/DL (1.8-2.4); SODIUM LEVEL 141 MEQ/L (136-145)
[2017-10-22 20:49] LABS: ALBUMIN 2.7 GM/DL (3.2-5.2); ANION GAP 7 MEQ/L (8-16); BLOOD UREA NITROGEN 21 MG/DL (7-18); CALCIUM LEVEL 8.3 MG/DL (8.8-10.2); CARBON DIOXIDE LEVEL 43 MEQ/L (21-32); CHLORIDE LEVEL 93 MEQ/L (98-107); CREATININE FOR GFR 1.37 MG/DL (0.55-1.30); GLOMERULAR FILTRATION RATE 40.6 (>39); GLUCOSE, FASTING 222 MG/DL (70-100); PHOSPHORUS LEVEL 3.5 MG/DL (2.5-4.9); POTASSIUM SERUM 3.2 MEQ/L (3.5-5.1); SODIUM LEVEL 143 MEQ/L (136-145)
[2017-10-22 20:49] LABS: BEDSIDE GLUCOSE 241 MG/DL (83-110)
[2017-10-22] MEDS: LEVEMIR (INSULIN DETEMIR) 1 UNITS/0.01ML SC (20:58)
[2017-10-22] MEDS: PRAVASTATIN 20 MG TAB PO (20:58)
[2017-10-23] MEDS: POTASSIUM CHLORIDE 10 MEQ SR TABLET PO ×2 (00:21→11:57)
[2017-10-23 01:26] LABS: ANION GAP 4 MEQ/L (8-16); BLOOD UREA NITROGEN 22 MG/DL (7-18); CALCIUM LEVEL 8.2 MG/DL (8.8-10.2); CARBON DIOXIDE LEVEL 42 MEQ/L (21-32); CHLORIDE LEVEL 95 MEQ/L (98-107); GLOMERULAR FILTRATION RATE 39.6 (>39); GLUCOSE, FASTING 289 MG/DL (70-100); MAGNESIUM LEVEL 2.3 MG/DL (1.8-2.4); POTASSIUM SERUM 3.4 MEQ/L (3.5-5.1); SODIUM LEVEL 141 MEQ/L (136-145)
[2017-10-23] MEDS: ACETAMINOPHEN TAB 650MG DOSE (2X325MG) PO ×3 (01:57→16:46)
[2017-10-23 05:47] LABS: HEMATOCRIT 35.3 % (36.0-47.0); MEAN CORPUSCULAR HEMOGLOBIN 29.9 pg (27.0-33.0); MEAN CORPUSCULAR HGB CONC 31.2 g/dl (32.0-36.5); MEAN CORPUSCULAR VOLUME 95.9 fl (80.0-96.0); PLATELET COUNT, AUTOMATED 249 10^3/uL (150-450); RED BLOOD COUNT 3.68 10^6/uL (4.00-5.40); RED CELL DISTRIBUTION WIDTH 13.8 % (11.5-14.5)
[2017-10-23] MEDS: HEPARIN SOD (PORCINE) 5000 UNITS/ML VIAL SC ×3 (05:57→20:51)
[2017-10-23] MEDS: tiZANidine 4 MG TAB PO ×3 (05:57→20:48)
[2017-10-23 06:01] LABS: ALBUMIN 2.6 GM/DL (3.2-5.2); ALBUMIN/GLOBULIN RATIO 0.53 (1.00-1.93); ALKALINE PHOSPHATASE 46 U/L (45-117); ALT/SGPT 19 U/L (12-78); ANION GAP 6 MEQ/L (8-16); AST/SGOT 18 U/L (7-37); BILIRUBIN,TOTAL 0.4 MG/DL (0.2-1.0); BLOOD UREA NITROGEN 20 MG/DL (7-18); CALCIUM LEVEL 8.7 MG/DL (8.8-10.2); CARBON DIOXIDE LEVEL 39 MEQ/L (21-32); CHLORIDE LEVEL 97 MEQ/L (98-107); CREATININE FOR GFR 1.17 MG/DL (0.55-1.30); GLOMERULAR FILTRATION RATE 48.7 (>39); GLUCOSE, FASTING 164 MG/DL (70-100); MAGNESIUM LEVEL 2.3 MG/DL (1.8-2.4); POTASSIUM SERUM 3.5 MEQ/L (3.5-5.1); SODIUM LEVEL 142 MEQ/L (136-145); TOTAL PROTEIN 7.5 GM/DL (6.4-8.2)
[2017-10-23] MEDS: FUROSEMIDE 40 MG/4 ML VIAL (J1940) IV ×2 (06:33→17:40)
[2017-10-23] MEDS: HumaLOG INSULIN (NovoLOG) PER UNIT SC ×4 (07:42→20:47)
[2017-10-23] MEDS: SPIRONOLACTONE 25 MG TAB PO (08:44)
[2017-10-23] MEDS: VITAMIN D 1,000 INTERNATIONAL UNITS TABLET PO ×2 (08:44→20:50)
[2017-10-23] MEDS: ASPIRIN 81 MG ENTERIC TAB PO (08:44)
[2017-10-23] MEDS: GABAPENTIN 100 MG CAP PO ×2 (08:44→20:50)
[2017-10-23] MEDS: SENOKOT S TAB PO ×2 (08:44→20:48)
[2017-10-23] MEDS: CARVedilol 6.25 MG TAB PO ×2 (08:45→20:50)
[2017-10-23] MEDS: metOLazone 5 MG TAB PO (08:45)
[2017-10-23] MEDS: LISINOPRIL 10 MG TAB PO (08:45)
[2017-10-23] MEDS: CLOPIDOGREL 75 MG TAB PO (08:50)
[2017-10-23 10:31] LABS: ANION GAP 6 MEQ/L (8-16); BLOOD UREA NITROGEN 20 MG/DL (7-18); CALCIUM LEVEL 8.5 MG/DL (8.8-10.2); CARBON DIOXIDE LEVEL 42 MEQ/L (21-32); CHLORIDE LEVEL 94 MEQ/L (98-107); CREATININE FOR GFR 1.24 MG/DL (0.55-1.30); GLOMERULAR FILTRATION RATE 45.5 (>39); GLUCOSE, FASTING 213 MG/DL (70-100); POTASSIUM SERUM 2.7 MEQ/L (3.5-5.1); SODIUM LEVEL 142 MEQ/L (136-145)
[2017-10-23 11:57] LABS: BEDSIDE GLUCOSE 180 MG/DL (83-110)
[2017-10-23 12:47] LABS: MAGNESIUM LEVEL 2.2 MG/DL (1.8-2.4)
[2017-10-23 17:27] LABS: BEDSIDE GLUCOSE 290 MG/DL (83-110)
[2017-10-23 20:33] LABS: BEDSIDE GLUCOSE 303 MG/DL (83-110)
[2017-10-23] MEDS: LEVEMIR (INSULIN DETEMIR) 1 UNITS/0.01ML SC (20:47)
[2017-10-23] MEDS: PRAVASTATIN 20 MG TAB PO (20:48)
[2017-10-24] MEDS: ACETAMINOPHEN TAB 650MG DOSE (2X325MG) PO ×2 (01:07→16:41)
[2017-10-24] MEDS: ANALGESIC BALM CRM 120 GM TOP ×2 (01:07→06:29)
[2017-10-24 05:52] LABS: HEMATOCRIT 34.9 % (36.0-47.0); HEMOGLOBIN 11.1 g/dl (12.0-15.5); MEAN CORPUSCULAR HEMOGLOBIN 29.9 pg (27.0-33.0); MEAN CORPUSCULAR HGB CONC 31.8 g/dl (32.0-36.5); MEAN CORPUSCULAR VOLUME 94.1 fl (80.0-96.0); PLATELET COUNT, AUTOMATED 235 10^3/uL (150-450); RED BLOOD COUNT 3.71 10^6/uL (4.00-5.40); RED CELL DISTRIBUTION WIDTH 13.4 % (11.5-14.5); WHITE BLOOD COUNT 5.3 10^3/uL (4.0-10.0)
[2017-10-24] MEDS: HEPARIN SOD (PORCINE) 5000 UNITS/ML VIAL SC ×2 (06:29→16:40)
[2017-10-24 06:34] LABS: ALBUMIN 2.7 GM/DL (3.2-5.2); ALKALINE PHOSPHATASE 50 U/L (45-117); ALT/SGPT 19 U/L (12-78); ANION GAP 10 MEQ/L (8-16); AST/SGOT 19 U/L (7-37); BILIRUBIN,TOTAL 0.4 MG/DL (0.2-1.0); BLOOD UREA NITROGEN 21 MG/DL (7-18); CALCIUM LEVEL 8.7 MG/DL (8.8-10.2); CARBON DIOXIDE LEVEL 38 MEQ/L (21-32); CHLORIDE LEVEL 92 MEQ/L (98-107); GLOMERULAR FILTRATION RATE 52.3 (>39); GLUCOSE, FASTING 215 MG/DL (70-100); POTASSIUM SERUM 2.7 MEQ/L (3.5-5.1); SODIUM LEVEL 140 MEQ/L (136-145); TOTAL PROTEIN 7.2 GM/DL (6.4-8.2)
[2017-10-24] MEDS ORDERED: POTASSIUM CHLORIDE 10 MEQ SR TABLET PO (07:00)
[2017-10-24] MEDS: SILVER NITRATE APPLICATOR TOP (07:22)
[2017-10-24] MEDS: POTASSIUM CHLORIDE 10 MEQ SR TABLET PO ×2 (07:29→09:20)
[2017-10-24] MEDS: FUROSEMIDE 40 MG/4 ML VIAL (J1940) IV ×2 (07:29→18:58)
[2017-10-24] MEDS: tiZANidine 4 MG TAB PO ×3 (07:30→22:02)
[2017-10-24] MEDS: HumaLOG INSULIN (NovoLOG) PER UNIT SC ×4 (07:30→20:27)
[2017-10-24 08:52] LABS: MAGNESIUM LEVEL 2.3 MG/DL (1.8-2.4)
[2017-10-24] MEDS: VITAMIN D 1,000 INTERNATIONAL UNITS TABLET PO ×2 (09:20→20:27)
[2017-10-24] MEDS: LISINOPRIL 10 MG TAB PO (09:20)
[2017-10-24] MEDS: CARVedilol 6.25 MG TAB PO ×2 (09:21→20:26)
[2017-10-24] MEDS: metOLazone 5 MG TAB PO (09:21)
[2017-10-24] MEDS: ASPIRIN 81 MG ENTERIC TAB PO (09:21)
[2017-10-24] MEDS: SPIRONOLACTONE 25 MG TAB PO (09:21)
[2017-10-24] MEDS: GABAPENTIN 100 MG CAP PO ×2 (09:21→20:27)
[2017-10-24] MEDS: CLOPIDOGREL 75 MG TAB PO (09:21)
[2017-10-24] MEDS: SENOKOT S TAB PO ×2 (09:22→20:26)
[2017-10-24 12:21] LABS: BEDSIDE GLUCOSE 217 MG/DL (83-110)
[2017-10-24] MEDS ORDERED: SLF 3 ML SYR IV (12:45)
[2017-10-24] MEDS: SLF 3 ML SYR IV ×2 (14:29→22:03)
[2017-10-24 16:37] LABS: BEDSIDE GLUCOSE 302 MG/DL (83-110)
[2017-10-24 20:19] LABS: BEDSIDE GLUCOSE 369 MG/DL (83-110)
[2017-10-24] MEDS: PRAVASTATIN 20 MG TAB PO (20:27)
[2017-10-24] MEDS: LEVEMIR (INSULIN DETEMIR) 1 UNITS/0.01ML SC (20:28)
[2017-10-25] MEDS: ACETAMINOPHEN TAB 650MG DOSE (2X325MG) PO ×2 (00:24→23:00)
[2017-10-25] MEDS: tiZANidine 4 MG TAB PO ×4 (03:06→21:41)
[2017-10-25] MEDS: ANALGESIC BALM CRM 120 GM TOP ×2 (04:40→23:01)
[2017-10-25 05:50] LABS: HEMATOCRIT 35.1 % (36.0-47.0); HEMOGLOBIN 11.3 g/dl (12.0-15.5); MEAN CORPUSCULAR HEMOGLOBIN 30.1 pg (27.0-33.0); MEAN CORPUSCULAR HGB CONC 32.2 g/dl (32.0-36.5); MEAN CORPUSCULAR VOLUME 93.4 fl (80.0-96.0); PLATELET COUNT, AUTOMATED 248 10^3/uL (150-450); RED BLOOD COUNT 3.76 10^6/uL (4.00-5.40); RED CELL DISTRIBUTION WIDTH 13.2 % (11.5-14.5); WHITE BLOOD COUNT 4.8 10^3/uL (4.0-10.0)
[2017-10-25] MEDS: HEPARIN SOD (PORCINE) 5000 UNITS/ML VIAL SC ×2 (06:15→17:32)
[2017-10-25] MEDS: SLF 3 ML SYR IV ×3 (06:17→21:41)
[2017-10-25] MEDS: FUROSEMIDE 40 MG/4 ML VIAL (J1940) IV ×2 (06:17→17:34)
[2017-10-25 06:24] LABS: ALBUMIN 2.8 GM/DL (3.2-5.2); ALBUMIN/GLOBULIN RATIO 0.62 (1.00-1.93); ALKALINE PHOSPHATASE 49 U/L (45-117); ALT/SGPT 20 U/L (12-78); ANION GAP 10 MEQ/L (8-16); AST/SGOT 16 U/L (7-37); BILIRUBIN,TOTAL 0.3 MG/DL (0.2-1.0); BLOOD UREA NITROGEN 20 MG/DL (7-18); CALCIUM LEVEL 8.8 MG/DL (8.8-10.2); CARBON DIOXIDE LEVEL 40 MEQ/L (21-32); CHLORIDE LEVEL 92 MEQ/L (98-107); CREATININE FOR GFR 1.08 MG/DL (0.55-1.30); GLOMERULAR FILTRATION RATE 53.4 (>39); GLUCOSE, FASTING 225 MG/DL (70-100); POTASSIUM SERUM 2.5 MEQ/L (3.5-5.1); SODIUM LEVEL 142 MEQ/L (136-145); TOTAL PROTEIN 7.3 GM/DL (6.4-8.2)
[2017-10-25] MEDS: POTASSIUM CHLORIDE 10 MEQ SR TABLET PO ×4 (07:46→21:38)
[2017-10-25] MEDS: HumaLOG INSULIN (NovoLOG) PER UNIT SC ×4 (07:46→21:40)
[2017-10-25] MEDS: VITAMIN D 1,000 INTERNATIONAL UNITS TABLET PO ×2 (10:13→21:39)
[2017-10-25] MEDS: metOLazone 5 MG TAB PO (10:13)
[2017-10-25] MEDS: GABAPENTIN 100 MG CAP PO ×2 (10:13→21:39)
[2017-10-25] MEDS: ASPIRIN 81 MG ENTERIC TAB PO (10:13)
[2017-10-25] MEDS: SPIRONOLACTONE 25 MG TAB PO (10:14)
[2017-10-25] MEDS: LISINOPRIL 10 MG TAB PO (10:14)
[2017-10-25] MEDS: SENOKOT S TAB PO ×2 (10:14→21:39)
[2017-10-25] MEDS: CLOPIDOGREL 75 MG TAB PO (10:14)
[2017-10-25] MEDS: CARVedilol 6.25 MG TAB PO ×2 (10:15→21:39)
[2017-10-25 12:29] LABS: BEDSIDE GLUCOSE 273 MG/DL (83-110)
[2017-10-25 17:21] LABS: BEDSIDE GLUCOSE 313 MG/DL (83-110)
[2017-10-25 19:13] LABS: ANION GAP 9 MEQ/L (8-16); BLOOD UREA NITROGEN 26 MG/DL (7-18); CALCIUM LEVEL 9.1 MG/DL (8.8-10.2); CARBON DIOXIDE LEVEL 40 MEQ/L (21-32); CHLORIDE LEVEL 91 MEQ/L (98-107); CREATININE FOR GFR 1.31 MG/DL (0.55-1.30); GLOMERULAR FILTRATION RATE 42.7 (>39); GLUCOSE, FASTING 326 MG/DL (70-100); POTASSIUM SERUM 2.9 MEQ/L (3.5-5.1); SODIUM LEVEL 140 MEQ/L (136-145)
[2017-10-25 20:16] LABS: BEDSIDE GLUCOSE 392 MG/DL (83-110)
[2017-10-25] MEDS: LEVEMIR (INSULIN DETEMIR) 1 UNITS/0.01ML SC (21:39)
[2017-10-25] MEDS: PRAVASTATIN 20 MG TAB PO (21:39)
[2017-10-26] MEDS: ANALGESIC BALM CRM 120 GM TOP (02:33)
[2017-10-26 05:56] LABS: HEMATOCRIT 33.9 % (36.0-47.0); HEMOGLOBIN 10.9 g/dl (12.0-15.5); MEAN CORPUSCULAR HEMOGLOBIN 30.3 pg (27.0-33.0); MEAN CORPUSCULAR HGB CONC 32.2 g/dl (32.0-36.5); MEAN CORPUSCULAR VOLUME 94.2 fl (80.0-96.0); PLATELET COUNT, AUTOMATED 248 10^3/uL (150-450); RED CELL DISTRIBUTION WIDTH 13.2 % (11.5-14.5); WHITE BLOOD COUNT 4.7 10^3/uL (4.0-10.0)
[2017-10-26 06:12] LABS: ALBUMIN 2.7 GM/DL (3.2-5.2); ALBUMIN/GLOBULIN RATIO 0.64 (1.00-1.93); ALKALINE PHOSPHATASE 48 U/L (45-117); ALT/SGPT 18 U/L (12-78); ANION GAP 9 MEQ/L (8-16); AST/SGOT 14 U/L (7-37); BILIRUBIN,TOTAL 0.3 MG/DL (0.2-1.0); BLOOD UREA NITROGEN 26 MG/DL (7-18); CALCIUM LEVEL 8.6 MG/DL (8.8-10.2); CARBON DIOXIDE LEVEL 36 MEQ/L (21-32); CHLORIDE LEVEL 95 MEQ/L (98-107); CREATININE FOR GFR 1.14 MG/DL (0.55-1.30); GLOMERULAR FILTRATION RATE 50.2 (>39); GLUCOSE, FASTING 261 MG/DL (70-100); POTASSIUM SERUM 3.3 MEQ/L (3.5-5.1); SODIUM LEVEL 140 MEQ/L (136-145); TOTAL PROTEIN 6.9 GM/DL (6.4-8.2)
[2017-10-26] MEDS: HEPARIN SOD (PORCINE) 5000 UNITS/ML VIAL SC ×2 (06:45→18:22)
[2017-10-26] MEDS: SLF 3 ML SYR IV ×3 (06:46→21:18)
[2017-10-26] MEDS: FUROSEMIDE 40 MG/4 ML VIAL (J1940) IV (06:46)
[2017-10-26] MEDS: POTASSIUM CHLORIDE 10 MEQ SR TABLET PO ×2 (06:47→07:48)
[2017-10-26] MEDS: tiZANidine 4 MG TAB PO ×3 (06:55→21:18)
[2017-10-26] MEDS: HumaLOG INSULIN (NovoLOG) PER UNIT SC ×4 (07:48→21:17)
[2017-10-26] MEDS: VITAMIN D 1,000 INTERNATIONAL UNITS TABLET PO ×2 (07:48→20:54)
[2017-10-26] MEDS: ASPIRIN 81 MG ENTERIC TAB PO (07:49)
[2017-10-26] MEDS: SENOKOT S TAB PO ×2 (07:49→20:54)
[2017-10-26] MEDS: SPIRONOLACTONE 25 MG TAB PO (07:49)
[2017-10-26] MEDS: metOLazone 5 MG TAB PO (07:49)
[2017-10-26] MEDS: GABAPENTIN 100 MG CAP PO ×2 (07:49→20:54)
[2017-10-26] MEDS: CLOPIDOGREL 75 MG TAB PO (07:49)
[2017-10-26] MEDS: CARVedilol 6.25 MG TAB PO ×2 (07:51→20:55)
[2017-10-26] MEDS: LISINOPRIL 10 MG TAB PO (07:54)
[2017-10-26 12:05] LABS: BEDSIDE GLUCOSE 282 MG/DL (83-110)
[2017-10-26 17:46] LABS: BEDSIDE GLUCOSE 388 MG/DL (83-110)
[2017-10-26] MEDS: FUROSEMIDE 40 MG TAB PO (18:22)
[2017-10-26] MEDS: PRAVASTATIN 20 MG TAB PO (20:54)
[2017-10-26 21:10] LABS: BEDSIDE GLUCOSE 337 MG/DL (83-110)
[2017-10-26] MEDS: LEVEMIR (INSULIN DETEMIR) 1 UNITS/0.01ML SC (21:17)
[2017-10-27] MEDS: ACETAMINOPHEN TAB 650MG DOSE (2X325MG) PO (00:22)
[2017-10-27] MEDS: ANALGESIC BALM CRM 120 GM TOP (00:29)
[2017-10-27 05:31] LABS: HEMOGLOBIN 10.8 g/dl (12.0-15.5); MEAN CORPUSCULAR HEMOGLOBIN 30.2 pg (27.0-33.0); MEAN CORPUSCULAR HGB CONC 31.8 g/dl (32.0-36.5); PLATELET COUNT, AUTOMATED 243 10^3/uL (150-450); RED BLOOD COUNT 3.58 10^6/uL (4.00-5.40); WHITE BLOOD COUNT 4.7 10^3/uL (4.0-10.0)
[2017-10-27 05:59] LABS: ALBUMIN 2.9 GM/DL (3.2-5.2); ALBUMIN/GLOBULIN RATIO 0.73 (1.00-1.93); ALKALINE PHOSPHATASE 54 U/L (45-117); ALT/SGPT 18 U/L (12-78); ANION GAP 9 MEQ/L (8-16); AST/SGOT 10 U/L (7-37); BILIRUBIN,TOTAL 0.3 MG/DL (0.2-1.0); BLOOD UREA NITROGEN 31 MG/DL (7-18); CALCIUM LEVEL 8.7 MG/DL (8.8-10.2); CARBON DIOXIDE LEVEL 39 MEQ/L (21-32); CHLORIDE LEVEL 93 MEQ/L (98-107); CREATININE FOR GFR 1.13 MG/DL (0.55-1.30); GLOMERULAR FILTRATION RATE 50.7 (>39); GLUCOSE, FASTING 292 MG/DL (70-100); SODIUM LEVEL 141 MEQ/L (136-145); TOTAL PROTEIN 6.9 GM/DL (6.4-8.2)
[2017-10-27] MEDS: tiZANidine 4 MG TAB PO ×3 (06:33→21:50)
[2017-10-27] MEDS: HEPARIN SOD (PORCINE) 5000 UNITS/ML VIAL SC ×2 (06:35→17:19)
[2017-10-27] MEDS: SLF 3 ML SYR IV ×3 (06:36→21:50)
[2017-10-27 07:19] LABS: MAGNESIUM LEVEL 2.3 MG/DL (1.8-2.4)
[2017-10-27] MEDS: GABAPENTIN 100 MG CAP PO ×2 (09:02→21:49)
[2017-10-27] MEDS: HumaLOG INSULIN (NovoLOG) PER UNIT SC ×4 (09:02→21:48)
[2017-10-27] MEDS: ASPIRIN 81 MG ENTERIC TAB PO (09:02)
[2017-10-27] MEDS: CLOPIDOGREL 75 MG TAB PO (09:02)
[2017-10-27] MEDS: SPIRONOLACTONE 25 MG TAB PO (09:03)
[2017-10-27] MEDS: FUROSEMIDE 40 MG TAB PO ×2 (09:03→17:18)
[2017-10-27] MEDS: LISINOPRIL 10 MG TAB PO (09:03)
[2017-10-27] MEDS: VITAMIN D 1,000 INTERNATIONAL UNITS TABLET PO ×2 (09:04→21:49)
[2017-10-27] MEDS: SENOKOT S TAB PO ×2 (09:04→21:49)
[2017-10-27] MEDS: metOLazone 5 MG TAB PO (09:04)
[2017-10-27] MEDS: CARVedilol 6.25 MG TAB PO ×2 (09:04→21:49)
[2017-10-27] MEDS ORDERED: POTASSIUM CHLORIDE 10 MEQ SR TABLET PO (09:30)
[2017-10-27] MEDS: POTASSIUM CHLORIDE 10 MEQ SR TABLET PO (09:32)
[2017-10-27 11:56] LABS: BEDSIDE GLUCOSE 338 MG/DL (83-110)
[2017-10-27 17:06] LABS: BEDSIDE GLUCOSE 329 MG/DL (83-110)
[2017-10-27] MEDS: SODIUM CHLORIDE NASAL 0.65% SPRAY BTL (OCEAN) (17:58)
[2017-10-27 21:25] LABS: BEDSIDE GLUCOSE 384 MG/DL (83-110)
[2017-10-27] MEDS: PRAVASTATIN 20 MG TAB PO (21:48)
[2017-10-27] MEDS: LEVEMIR (INSULIN DETEMIR) 1 UNITS/0.01ML SC (21:48)
[2017-10-28] MEDS: ACETAMINOPHEN TAB 650MG DOSE (2X325MG) PO ×2 (00:22→23:08)
[2017-10-28 05:38] LABS: HEMATOCRIT 35.6 % (36.0-47.0); HEMOGLOBIN 11.4 g/dl (12.0-15.5); MEAN CORPUSCULAR HEMOGLOBIN 29.7 pg (27.0-33.0); MEAN CORPUSCULAR VOLUME 92.7 fl (80.0-96.0); PLATELET COUNT, AUTOMATED 256 10^3/uL (150-450); RED BLOOD COUNT 3.84 10^6/uL (4.00-5.40); RED CELL DISTRIBUTION WIDTH 12.9 % (11.5-14.5)
[2017-10-28 06:02] LABS: ALBUMIN 2.9 GM/DL (3.2-5.2); ALBUMIN/GLOBULIN RATIO 0.67 (1.00-1.93); ALKALINE PHOSPHATASE 47 U/L (45-117); ALT/SGPT 19 U/L (12-78); ANION GAP 8 MEQ/L (8-16); AST/SGOT 14 U/L (7-37); BILIRUBIN,TOTAL 0.3 MG/DL (0.2-1.0); BLOOD UREA NITROGEN 27 MG/DL (7-18); CALCIUM LEVEL 9.1 MG/DL (8.8-10.2); CARBON DIOXIDE LEVEL 42 MEQ/L (21-32); CHLORIDE LEVEL 91 MEQ/L (98-107); CREATININE FOR GFR 0.99 MG/DL (0.55-1.30); GLUCOSE, FASTING 216 MG/DL (70-100); POTASSIUM SERUM 2.3 MEQ/L (3.5-5.1); SODIUM LEVEL 141 MEQ/L (136-145); TOTAL PROTEIN 7.2 GM/DL (6.4-8.2)
[2017-10-28] MEDS: tiZANidine 4 MG TAB PO ×3 (06:33→21:18)
[2017-10-28] MEDS: SLF 3 ML SYR IV ×3 (06:33→21:20)
[2017-10-28] MEDS: HEPARIN SOD (PORCINE) 5000 UNITS/ML VIAL SC ×2 (06:33→17:30)
[2017-10-28] MEDS: POTASSIUM CHLORIDE 10 MEQ SR TABLET PO ×2 (06:33→09:05)
[2017-10-28] MEDS: SENOKOT S TAB PO ×2 (09:04→21:19)
[2017-10-28] MEDS: CLOPIDOGREL 75 MG TAB PO (09:05)
[2017-10-28] MEDS: ASPIRIN 81 MG ENTERIC TAB PO (09:05)
[2017-10-28] MEDS: LISINOPRIL 10 MG TAB PO (09:05)
[2017-10-28] MEDS: SPIRONOLACTONE 25 MG TAB PO (09:05)
[2017-10-28] MEDS: GABAPENTIN 100 MG CAP PO ×2 (09:05→21:19)
[2017-10-28] MEDS: metOLazone 5 MG TAB PO (09:06)
[2017-10-28] MEDS: CARVedilol 6.25 MG TAB PO ×2 (09:06→21:19)
[2017-10-28] MEDS: FUROSEMIDE 40 MG TAB PO ×2 (09:06→17:29)
[2017-10-28] MEDS: VITAMIN D 1,000 INTERNATIONAL UNITS TABLET PO ×2 (09:06→21:18)
[2017-10-28] MEDS: HumaLOG INSULIN (NovoLOG) PER UNIT SC ×4 (09:07→21:00)
[2017-10-28 11:52] LABS: BEDSIDE GLUCOSE 364 MG/DL (83-110)
[2017-10-28 17:26] LABS: BEDSIDE GLUCOSE 413 MG/DL (83-110)
[2017-10-28 20:24] LABS: BEDSIDE GLUCOSE 420 MG/DL (83-110)
[2017-10-28] MEDS: LEVEMIR (INSULIN DETEMIR) 1 UNITS/0.01ML SC (21:17)
[2017-10-28] MEDS: PRAVASTATIN 20 MG TAB PO (21:18)
[2017-10-29] MEDS: ANALGESIC BALM CRM 120 GM TOP (00:10)
[2017-10-29] MEDS: ACETAMINOPHEN TAB 650MG DOSE (2X325MG) PO (03:43)
[2017-10-29] MEDS: HEPARIN SOD (PORCINE) 5000 UNITS/ML VIAL SC ×2 (05:16→18:16)
[2017-10-29] MEDS: tiZANidine 4 MG TAB PO ×3 (05:16→21:46)
[2017-10-29] MEDS: SLF 3 ML SYR IV ×3 (05:16→21:47)
[2017-10-29 06:24] LABS: ANION GAP 5 MEQ/L (8-16); BLOOD UREA NITROGEN 33 MG/DL (7-18); CALCIUM LEVEL 8.8 MG/DL (8.8-10.2); CARBON DIOXIDE LEVEL 43 MEQ/L (21-32); CHLORIDE LEVEL 90 MEQ/L (98-107); CREATININE FOR GFR 1.21 MG/DL (0.55-1.30); GLOMERULAR FILTRATION RATE 46.8 (>39); GLUCOSE, FASTING 271 MG/DL (70-100); POTASSIUM SERUM 2.4 MEQ/L (3.5-5.1); SODIUM LEVEL 138 MEQ/L (136-145)
[2017-10-29] MEDS: KCL 10MEQ/100ML SWI (KRUN) 10 MEQ in APPROPRIATE DILUENT 1 EA IV ×3 (06:55→12:03)
[2017-10-29] MEDS: POTASSIUM CHLORIDE 10 MEQ SR TABLET PO ×6 (06:56→18:17)
[2017-10-29] MEDS: FUROSEMIDE 40 MG TAB PO (07:03)
[2017-10-29] MEDS: HumaLOG INSULIN (NovoLOG) PER UNIT SC ×4 (08:32→21:47)
[2017-10-29] MEDS: VITAMIN D 1,000 INTERNATIONAL UNITS TABLET PO ×2 (09:44→21:45)
[2017-10-29] MEDS: GABAPENTIN 100 MG CAP PO ×2 (09:46→21:46)
[2017-10-29] MEDS: CLOPIDOGREL 75 MG TAB PO (09:46)
[2017-10-29] MEDS: metOLazone 5 MG TAB PO (09:47)
[2017-10-29] MEDS: SENOKOT S TAB PO ×2 (09:47→21:46)
[2017-10-29] MEDS: SPIRONOLACTONE 25 MG TAB PO ×2 (09:47→16:07)
[2017-10-29] MEDS: ASPIRIN 81 MG ENTERIC TAB PO (09:48)
[2017-10-29] MEDS: CARVedilol 6.25 MG TAB PO (09:48)
[2017-10-29] MEDS: LISINOPRIL 10 MG TAB PO (09:49)
[2017-10-29 09:50] LABS: CREATININE,RANDOM URINE 61.6 MG/DL
[2017-10-29 09:50] LABS: POTASSIUM RANDOM URINE 62.6 MEQ/L
[2017-10-29 11:54] LABS: BEDSIDE GLUCOSE 319 MG/DL (83-110)
[2017-10-29 14:05] LABS: ANION GAP 5 MEQ/L (8-16); BLOOD UREA NITROGEN 32 MG/DL (7-18); CALCIUM LEVEL 9.1 MG/DL (8.8-10.2); CARBON DIOXIDE LEVEL 43 MEQ/L (21-32); CHLORIDE LEVEL 90 MEQ/L (98-107); CREATININE FOR GFR 1.19 MG/DL (0.55-1.30); GLOMERULAR FILTRATION RATE 47.7 (>39); GLUCOSE, FASTING 344 MG/DL (70-100); POTASSIUM SERUM 2.7 MEQ/L (3.5-5.1); SODIUM LEVEL 138 MEQ/L (136-145)
[2017-10-29 17:06] LABS: BEDSIDE GLUCOSE 381 MG/DL (83-110)
[2017-10-29 20:10] LABS: BEDSIDE GLUCOSE 417 MG/DL (83-110)
[2017-10-29 20:35] LABS: ANION GAP 5 MEQ/L (8-16); BLOOD UREA NITROGEN 32 MG/DL (7-18); CARBON DIOXIDE LEVEL 41 MEQ/L (21-32); CHLORIDE LEVEL 90 MEQ/L (98-107); CREATININE FOR GFR 1.34 MG/DL (0.55-1.30); GLOMERULAR FILTRATION RATE 41.6 (>39); GLUCOSE, FASTING 400 MG/DL (70-100); POTASSIUM SERUM 3.5 MEQ/L (3.5-5.1); SODIUM LEVEL 136 MEQ/L (136-145)
[2017-10-29] MEDS ORDERED: SPIRONOLACTONE 50 MG TAB PO (21:00)
[2017-10-29] MEDS: PRAVASTATIN 20 MG TAB PO (21:46)
[2017-10-29] MEDS: CARVedilol 3.125 MG TAB PO (21:46)
[2017-10-29] MEDS: LEVEMIR (INSULIN DETEMIR) 1 UNITS/0.01ML SC (21:47)
[2017-10-30 06:22] LABS: ANION GAP 8 MEQ/L (8-16); BLOOD UREA NITROGEN 25 MG/DL (7-18); CALCIUM LEVEL 9.3 MG/DL (8.8-10.2); CARBON DIOXIDE LEVEL 40 MEQ/L (21-32); CHLORIDE LEVEL 96 MEQ/L (98-107); CREATININE FOR GFR 0.97 MG/DL (0.55-1.30); GLOMERULAR FILTRATION RATE > 60.0 (>39); GLUCOSE, FASTING 215 MG/DL (70-100); POTASSIUM SERUM 2.9 MEQ/L (3.5-5.1); SODIUM LEVEL 144 MEQ/L (136-145)
[2017-10-30] MEDS: tiZANidine 4 MG TAB PO ×3 (06:33→22:00)
[2017-10-30] MEDS: HEPARIN SOD (PORCINE) 5000 UNITS/ML VIAL SC ×2 (06:33→17:00)
[2017-10-30] MEDS: SLF 3 ML SYR IV ×3 (06:34→22:00)
[2017-10-30] MEDS: POTASSIUM CHLORIDE 10 MEQ SR TABLET PO ×3 (06:34→10:17)
[2017-10-30] MEDS: SENOKOT S TAB PO ×2 (08:28→20:29)
[2017-10-30] MEDS: LISINOPRIL 10 MG TAB PO (08:28)
[2017-10-30] MEDS: CLOPIDOGREL 75 MG TAB PO (08:28)
[2017-10-30] MEDS: HumaLOG INSULIN (NovoLOG) PER UNIT SC ×4 (08:28→20:34)
[2017-10-30] MEDS: CARVedilol 3.125 MG TAB PO ×2 (08:28→20:32)
[2017-10-30] MEDS: VITAMIN D 1,000 INTERNATIONAL UNITS TABLET PO ×2 (08:28→20:29)
[2017-10-30] MEDS: GABAPENTIN 100 MG CAP PO ×2 (08:29→20:33)
[2017-10-30] MEDS: SPIRONOLACTONE 50 MG TAB PO (08:29)
[2017-10-30] MEDS: TORSEMIDE 20 MG TAB PO (08:29)
[2017-10-30] MEDS: ASPIRIN 81 MG ENTERIC TAB PO (08:29)
[2017-10-30] MEDS ORDERED: POTASSIUM CHLORIDE 10 MEQ SR TABLET PO (09:00)
[2017-10-30 10:14] LABS: MAGNESIUM LEVEL 2.1 MG/DL (1.8-2.4)
[2017-10-30] MEDS: MAGNESIUM OXIDE 400 MG TAB (MAG-OX) PO (10:17)
[2017-10-30 11:24] LABS: BEDSIDE GLUCOSE 422 MG/DL (83-110)
[2017-10-30 14:08] LABS: ANION GAP 8 MEQ/L (8-16); BLOOD UREA NITROGEN 31 MG/DL (7-18); CALCIUM LEVEL 9.5 MG/DL (8.8-10.2); CARBON DIOXIDE LEVEL 38 MEQ/L (21-32); CHLORIDE LEVEL 93 MEQ/L (98-107); CREATININE FOR GFR 1.31 MG/DL (0.55-1.30); GLOMERULAR FILTRATION RATE 42.7 (>39); GLUCOSE, FASTING 392 MG/DL (70-100); POTASSIUM SERUM 3.5 MEQ/L (3.5-5.1); SODIUM LEVEL 139 MEQ/L (136-145)
[2017-10-30 16:51] LABS: BEDSIDE GLUCOSE 391 MG/DL (83-110)
[2017-10-30] MEDS: SPIRONOLACTONE 25 MG TAB PO (18:50)
[2017-10-30 19:56] LABS: BEDSIDE GLUCOSE 390 MG/DL (83-110)
[2017-10-30] MEDS: PRAVASTATIN 20 MG TAB PO (20:29)
[2017-10-30] MEDS: LEVEMIR (INSULIN DETEMIR) 1 UNITS/0.01ML SC (20:34)
[2017-10-30 20:47] LABS: ANION GAP 8 MEQ/L (8-16); BLOOD UREA NITROGEN 34 MG/DL (7-18); CALCIUM LEVEL 9.6 MG/DL (8.8-10.2); CARBON DIOXIDE LEVEL 40 MEQ/L (21-32); CHLORIDE LEVEL 91 MEQ/L (98-107); CREATININE FOR GFR 1.71 MG/DL (0.55-1.30); GLOMERULAR FILTRATION RATE 31.4 (>39); POTASSIUM SERUM 3.8 MEQ/L (3.5-5.1); SODIUM LEVEL 139 MEQ/L (136-145)
[2017-10-30 20:48] LABS: GLUCOSE, FASTING 405 MG/DL (70-100)
[2017-10-30] MEDS: ACETAMINOPHEN TAB 650MG DOSE (2X325MG) PO (23:30)
[2017-10-30] MEDS: ANALGESIC BALM CRM 120 GM TOP (23:31)
[2017-10-31] MEDS: tiZANidine 4 MG TAB PO ×3 (05:13→21:18)
[2017-10-31] MEDS: HEPARIN SOD (PORCINE) 5000 UNITS/ML VIAL SC ×2 (05:13→16:51)
[2017-10-31] MEDS: SLF 3 ML SYR IV ×3 (05:14→21:18)
[2017-10-31 05:56] LABS: HEMATOCRIT 35.2 % (36.0-47.0); HEMOGLOBIN 11.3 g/dl (12.0-15.5); MEAN CORPUSCULAR HEMOGLOBIN 30.5 pg (27.0-33.0); MEAN CORPUSCULAR HGB CONC 32.1 g/dl (32.0-36.5); MEAN CORPUSCULAR VOLUME 95.1 fl (80.0-96.0); PLATELET COUNT, AUTOMATED 264 10^3/uL (150-450); RED CELL DISTRIBUTION WIDTH 12.9 % (11.5-14.5); WHITE BLOOD COUNT 5.7 10^3/uL (4.0-10.0)
[2017-10-31 06:33] LABS: ANION GAP 8 MEQ/L (8-16); BLOOD UREA NITROGEN 34 MG/DL (7-18); CALCIUM LEVEL 9.5 MG/DL (8.8-10.2); CARBON DIOXIDE LEVEL 41 MEQ/L (21-32); CHLORIDE LEVEL 93 MEQ/L (98-107); CREATININE FOR GFR 1.31 MG/DL (0.55-1.30); GLOMERULAR FILTRATION RATE 42.7 (>39); GLUCOSE, FASTING 238 MG/DL (70-100); MAGNESIUM LEVEL 2.1 MG/DL (1.8-2.4); POTASSIUM SERUM 3.2 MEQ/L (3.5-5.1); SODIUM LEVEL 142 MEQ/L (136-145)
[2017-10-31] MEDS: SENOKOT S TAB PO ×2 (08:39→21:18)
[2017-10-31] MEDS: LISINOPRIL 10 MG TAB PO (08:39)
[2017-10-31] MEDS: SPIRONOLACTONE 50 MG TAB PO (08:39)
[2017-10-31] MEDS: CLOPIDOGREL 75 MG TAB PO (08:40)
[2017-10-31] MEDS: GABAPENTIN 100 MG CAP PO ×2 (08:40→21:17)
[2017-10-31] MEDS: ASPIRIN 81 MG ENTERIC TAB PO (08:40)
[2017-10-31] MEDS: CARVedilol 3.125 MG TAB PO ×2 (08:40→21:18)
[2017-10-31] MEDS: TORSEMIDE 20 MG TAB PO (08:40)
[2017-10-31] MEDS: POTASSIUM CHLORIDE 10 MEQ SR TABLET PO ×2 (08:41→10:50)
[2017-10-31] MEDS: VITAMIN D 1,000 INTERNATIONAL UNITS TABLET PO ×2 (08:41→21:17)
[2017-10-31] MEDS: HumaLOG INSULIN (NovoLOG) PER UNIT SC ×4 (08:42→21:15)
[2017-10-31 11:43] LABS: BEDSIDE GLUCOSE 346 MG/DL (83-110)
[2017-10-31 14:40] LABS: ANION GAP 7 MEQ/L (8-16); BLOOD UREA NITROGEN 33 MG/DL (7-18); CALCIUM LEVEL 9.5 MG/DL (8.8-10.2); CARBON DIOXIDE LEVEL 39 MEQ/L (21-32); CHLORIDE LEVEL 93 MEQ/L (98-107); CREATININE FOR GFR 1.38 MG/DL (0.55-1.30); GLOMERULAR FILTRATION RATE 40.2 (>39); GLUCOSE, FASTING 349 MG/DL (70-100); POTASSIUM SERUM 3.7 MEQ/L (3.5-5.1); SODIUM LEVEL 139 MEQ/L (136-145)
[2017-10-31 16:47] LABS: BEDSIDE GLUCOSE 388 MG/DL (83-110)
[2017-10-31] MEDS: ACETAMINOPHEN TAB 650MG DOSE (2X325MG) PO (18:19)
[2017-10-31 21:10] LABS: BEDSIDE GLUCOSE 463 MG/DL (83-110)
[2017-10-31] MEDS: LEVEMIR (INSULIN DETEMIR) 1 UNITS/0.01ML SC (21:17)
[2017-10-31] MEDS: PRAVASTATIN 20 MG TAB PO (21:18)
[2017-11-01] MEDS: ANALGESIC BALM CRM 120 GM TOP ×2 (01:35→22:48)
[2017-11-01] MEDS: ACETAMINOPHEN TAB 650MG DOSE (2X325MG) PO ×2 (01:36→22:53)
[2017-11-01] MEDS: HEPARIN SOD (PORCINE) 5000 UNITS/ML VIAL SC ×2 (05:28→17:06)
[2017-11-01] MEDS: tiZANidine 4 MG TAB PO ×3 (05:29→21:05)
[2017-11-01] MEDS: SLF 3 ML SYR IV ×3 (05:29→21:08)
[2017-11-01 05:55] LABS: HEMATOCRIT 36.2 % (36.0-47.0); HEMOGLOBIN 11.4 g/dl (12.0-15.5); MEAN CORPUSCULAR HGB CONC 31.5 g/dl (32.0-36.5); MEAN CORPUSCULAR VOLUME 95.3 fl (80.0-96.0); PLATELET COUNT, AUTOMATED 266 10^3/uL (150-450); WHITE BLOOD COUNT 5.4 10^3/uL (4.0-10.0)
[2017-11-01 06:24] LABS: ANION GAP 6 MEQ/L (8-16); BLOOD UREA NITROGEN 32 MG/DL (7-18); CARBON DIOXIDE LEVEL 40 MEQ/L (21-32); CHLORIDE LEVEL 92 MEQ/L (98-107); CREATININE FOR GFR 1.26 MG/DL (0.55-1.30); GLOMERULAR FILTRATION RATE 44.7 (>39); GLUCOSE, FASTING 318 MG/DL (70-100); POTASSIUM SERUM 3.2 MEQ/L (3.5-5.1); SODIUM LEVEL 138 MEQ/L (136-145)
[2017-11-01] MEDS: LISINOPRIL 10 MG TAB PO (08:00)
[2017-11-01] MEDS: ASPIRIN 81 MG ENTERIC TAB PO (08:00)
[2017-11-01] MEDS: CLOPIDOGREL 75 MG TAB PO (08:00)
[2017-11-01] MEDS: SENOKOT S TAB PO ×2 (08:00→21:07)
[2017-11-01] MEDS: CARVedilol 3.125 MG TAB PO ×2 (08:00→21:06)
[2017-11-01] MEDS: GABAPENTIN 100 MG CAP PO ×2 (08:01→21:06)
[2017-11-01] MEDS: VITAMIN D 1,000 INTERNATIONAL UNITS TABLET PO ×2 (08:01→21:04)
[2017-11-01] MEDS: SPIRONOLACTONE 50 MG TAB PO (08:01)
[2017-11-01] MEDS: POTASSIUM CHLORIDE 10 MEQ SR TABLET PO ×2 (08:01→21:06)
[2017-11-01] MEDS: TORSEMIDE 20 MG TAB PO (08:01)
[2017-11-01] MEDS: HumaLOG INSULIN (NovoLOG) PER UNIT SC ×4 (08:02→21:03)
[2017-11-01 11:28] LABS: BEDSIDE GLUCOSE 361 MG/DL (83-110)
[2017-11-01 16:47] LABS: BEDSIDE GLUCOSE 382 MG/DL (83-110)
[2017-11-01 20:23] LABS: BEDSIDE GLUCOSE 382 MG/DL (83-110)
[2017-11-01] MEDS: LEVEMIR (INSULIN DETEMIR) 1 UNITS/0.01ML SC (21:02)
[2017-11-01] MEDS: PRAVASTATIN 20 MG TAB PO (21:03)
[2017-11-01] MEDS: SILVER NITRATE APPLICATOR TOP (22:02)
[2017-11-02] MEDS: tiZANidine 4 MG TAB PO ×2 (05:40→12:58)
[2017-11-02] MEDS: HEPARIN SOD (PORCINE) 5000 UNITS/ML VIAL SC ×2 (05:41→18:00)
[2017-11-02] MEDS: SLF 3 ML SYR IV ×2 (05:41→14:00)
[2017-11-02 05:55] LABS: HEMATOCRIT 34.3 % (36.0-47.0); MEAN CORPUSCULAR HEMOGLOBIN 29.5 pg (27.0-33.0); MEAN CORPUSCULAR HGB CONC 32.1 g/dl (32.0-36.5); PLATELET COUNT, AUTOMATED 266 10^3/uL (150-450); RED BLOOD COUNT 3.73 10^6/uL (4.00-5.40); WHITE BLOOD COUNT 5.6 10^3/uL (4.0-10.0)
[2017-11-02 06:18] LABS: ANION GAP 9 MEQ/L (8-16); BLOOD UREA NITROGEN 29 MG/DL (7-18); CALCIUM LEVEL 9.3 MG/DL (8.8-10.2); CARBON DIOXIDE LEVEL 39 MEQ/L (21-32); CHLORIDE LEVEL 93 MEQ/L (98-107); CREATININE FOR GFR 1.19 MG/DL (0.55-1.30); GLOMERULAR FILTRATION RATE 47.7 (>39); GLUCOSE, FASTING 267 MG/DL (70-100); POTASSIUM SERUM 3.2 MEQ/L (3.5-5.1); SODIUM LEVEL 141 MEQ/L (136-145)
[2017-11-02] MEDS: LISINOPRIL 10 MG TAB PO (08:33)
[2017-11-02] MEDS: TORSEMIDE 20 MG TAB PO (08:34)
[2017-11-02] MEDS: VITAMIN D 1,000 INTERNATIONAL UNITS TABLET PO (08:34)
[2017-11-02] MEDS: ASPIRIN 81 MG ENTERIC TAB PO (08:34)
[2017-11-02] MEDS: GABAPENTIN 100 MG CAP PO (08:34)
[2017-11-02] MEDS: CLOPIDOGREL 75 MG TAB PO (08:34)
[2017-11-02] MEDS: POTASSIUM CHLORIDE 10 MEQ SR TABLET PO (08:34)
[2017-11-02] MEDS: CARVedilol 3.125 MG TAB PO (08:34)
[2017-11-02] MEDS: SENOKOT S TAB PO (08:35)
[2017-11-02] MEDS: HumaLOG INSULIN (NovoLOG) PER UNIT SC ×3 (08:35→17:12)
[2017-11-02] MEDS: SPIRONOLACTONE 50 MG TAB PO ×2 (08:35→17:12)
[2017-11-02 12:28] LABS: BEDSIDE GLUCOSE 373 MG/DL (83-110)
[2017-11-02 17:11] LABS: BEDSIDE GLUCOSE 425 MG/DL (83-110)
== END 2017-11-02 18:59 | disposition home or self-care (01) | DRG 291 ==
LOC: M PCU 10-24 02:20 → M ED 11:45 → M ED INP 14:14 → M PCU 16:54
DX: I13.0 Hypertensive heart and chronic kidney disease with heart failure and stage 1 through stage 4 chronic kidney disease, or unspecified chronic kidney disease (principal); J96.01 Acute respiratory failure with hypoxia; I50.33 Acute on chronic diastolic (congestive) heart failure; E24.9 Cushing's syndrome, unspecified; E87.3 Alkalosis; G47.33 Obstructive sleep apnea (adult) (pediatric); I25.10 Atherosclerotic heart disease of native coronary artery without angina pectoris; E11.9 Type 2 diabetes mellitus without complications; E78.5 Hyperlipidemia, unspecified; M54.9 Dorsalgia, unspecified; N18.3 Chronic kidney disease, stage 3 (moderate); E66.01 Morbid (severe) obesity due to excess calories; I27.20 Pulmonary hypertension, unspecified; E87.6 Hypokalemia; Z93.6 Other artificial openings of urinary tract status; Z79.891 Long term (current) use of opiate analgesic; Z79.82 Long term (current) use of aspirin; Z79.02 Long term (current) use of antithrombotics/antiplatelets; Z79.4 Long term (current) use of insulin; Z79.899 Other long term (current) drug therapy; Z85.51 Personal history of malignant neoplasm of bladder; Z68.35 Body mass index [BMI] 35.0-35.9, adult

== ENCOUNTER 2017-11-02 19:22 | Outpatient (CLI) | payer OTHER | END 2017-11-03 | LOC: M SLEEP 11-03 19:11 | DX: G47.33 Obstructive sleep apnea (adult) (pediatric) (principal) | CPT/HCPCS: 95811 ==

== ENCOUNTER 2017-11-02 23:21 | Emergency (ER) | payer OTHER | END 2017-11-03 01:30 | disposition home or self-care (01) | LOC: M ED 23:21 | DX: J96.11 Chronic respiratory failure with hypoxia (principal); E87.6 Hypokalemia; I50.32 Chronic diastolic (congestive) heart failure; I13.0 Hypertensive heart and chronic kidney disease with heart failure and stage 1 through stage 4 chronic kidney disease, or unspecified chronic kidney disease; N18.3 Chronic kidney disease, stage 3 (moderate); E24.9 Cushing's syndrome, unspecified; I25.10 Atherosclerotic heart disease of native coronary artery without angina pectoris; E11.9 Type 2 diabetes mellitus without complications; G47.30 Sleep apnea, unspecified; E66.9 Obesity, unspecified; Z87.891 Personal history of nicotine dependence; Z99.81 Dependence on supplemental oxygen; Z79.899 Other long term (current) drug therapy; Z79.01 Long term (current) use of anticoagulants; Z79.82 Long term (current) use of aspirin; Z79.4 Long term (current) use of insulin | CPT/HCPCS: 99284 ==

== ENCOUNTER 2018-02-28 14:53 | Inpatient (IN) | payer MEDICARE, OTHER ==
[~2018-02-28] VITALS: Ht 160 cm; Wt 84.0 kg
[~2018-02-28 14:53] MED LIST changes: +/GLIP10TAB PO; +/NITR4TASL SL; +ACTO30TA15 PO; +ALBU17IN INH; +ALDA50TA2 PO; +AMLO10TA2 PO; +AMLO10TA5 PO; +ASPI-161 PO; +ASPI325T PO; +ASPI81TA85 PO; +ATEN25TA PO; +ATOR40TA75 PO; +ATOR80TA59 PO; +BASA100I SC; +BENA20TA2 PO; +BENA40TA7 PO; +BESI0.6S OD; +BROM0.07 OD; +BROM0.07 OS; +BUME1TAB29 PO; +CARV12.5 PO; +CARV3.12 PO; +CARV6.25 PO; +CIPR500T3 PO; +CLOP75TA2 PO; +DOXY150C PO; +FURO20TA2 PO; +FURO40TA2 PO; +GABA-1171 PO; +GLIP10TA6 PO; +GLIP1TAB11 PO; +GLIP5TAB20 PO; +GLUC500T PO; +IBUP80TA PO; +INSUH10VL SC; +INSULANT SC; +ISOS20TAB PO; +ISOS30TA4 PO; +KLOR10TA76 PO; +LANTUS INSULIN SC; +LASI40TA9 PO; +LEVA1TAB2 PO; +LISI10TA4 PO; +LYRI150C PO; +METF500T PO; +METF500T13 PO; +METF500T4 PO; +METO5TA PO; +NITR4TASL SL; -OFLOXACIN 0.3 % (OCUFLOX) OPTH SOL 5ML OS; +PERCOCET PO; -PHENYLEPHRINE 2.5% OPHTH SOL 2ML OS; +POTA1TAB23 PO; +POTA20EL PO; +PRAV40TA2 PO; +PREDOPD OD; +PREDOPD OS; -PROPARACAINE 0.5% OPHTH SOL 15ML OS; +REGULAR INSULIN SC; +ROXI1TAB2 PO; +TIZA2CAP PO; -TROPICAMIDE 1% OPHTH SOLN 2ML OS; +TYLE325T5 PO; +TYLE500T78 PO; +VICT18IN SC; +VITA200016 PO; +VITA200038 PO; +VITAMIN D PO; +[UNRECOGNIZED DRUG - CODE] PO; +insulin
[2018-02-28 15:29] LABS: BASO % 0.3 % (0.0-1.0); EOS # 0.1 10^3/uL (0.0-0.50); EOS % 0.8 % (0.0-3.0); HEMATOCRIT 35.5 % (36.0-47.0); HEMOGLOBIN 11.7 g/dl (12.0-15.5); LYMPH # 1.9 10^3/uL (1.5-4.5); MEAN CORPUSCULAR HEMOGLOBIN 31.8 pg (27.0-33.0); MEAN CORPUSCULAR VOLUME 96.5 fl (80.0-96.0); MONO # 0.8 10^3/uL (0.0-0.8); MONO % 11.1 % (0.0-5.0); NEUTROPHILS # 4.6 10^3/uL (1.8-7.7); NEUTROPHILS % 61.3 % (36.0-66.0); PLATELET COUNT, AUTOMATED 226 10^3/uL (150-450); RED BLOOD COUNT 3.68 10^6/uL (4.00-5.40); WHITE BLOOD COUNT 7.5 10^3/uL (4.0-10.0)
[2018-02-28] MEDS ORDERED: TORS20TA2 PO (15:41)
[2018-02-28] MEDS ORDERED: ROPI0.5T PO (15:41)
[2018-02-28] MEDS ORDERED: AMLO10TA5 PO ×2 (15:41→16:01)
[2018-02-28 15:44] LABS: INR 1.79; PROTHROMBIN TIME 21.1 SECONDS (12.1-14.4)
--- NOTE | 2018-02-28 15:50 | REP ---
CT Head without contrast HISTORY: Infarction COMPARISON: 05/21/2017 Areas of decreased attenuation are present in the periventricular white matter. This represents small-vessel ischemic disease. There is no intraparenchymal hemorrhage, acute infarct, mass or midline shift. The ventricular system and cortical sulci are dilated consistent with mild volume loss. There is no extra cerebral collection. There is no fracture. The visualized sinuses are clear. IMPRESSION: 1. Small vessel ischemic disease. 2. Mild volume loss. Electronically Signed by Raza Larios MD 02/28/2018 03:42 P
[2018-02-28 15:53] LABS: BLOOD UREA NITROGEN 18 MG/DL (7-18); CALCIUM LEVEL 8.6 MG/DL (8.8-10.2); CARBON DIOXIDE LEVEL 31 MEQ/L (21-32); CHLORIDE LEVEL 101 MEQ/L (98-107); CPK CREATINE PHOSPHOKINASE 152 U/L (26-192); CREATININE FOR GFR 1.23 MG/DL (0.55-1.30); GLOMERULAR FILTRATION RATE 45.8 (>39); GLUCOSE, FASTING 205 MG/DL (70-100); MB/CK RELATIVE INDEX 2.63 (< OR =4); POTASSIUM SERUM 3.6 MEQ/L (3.5-5.1); SODIUM LEVEL 140 MEQ/L (136-145); TROPONIN I < 0.02 NG/ML (< 0.10)
[2018-02-28] MEDS ORDERED: SPIR50TA4 PO (16:01)
[2018-02-28] MEDS ORDERED: KLOR10TA76 PO (16:01)
[2018-02-28] MEDS ORDERED: CARV3.12 PO (16:01)
[2018-02-28] MEDS ORDERED: ISOVUE-370 76% 100ML VIAL (Q9967) As Ordered ONE (16:01)
--- NOTE | 2018-02-28 16:32 | REP ---
Portable chest x-ray: Single view. History: CVA. Comparison study: October 23, 2017. Findings: EKG monitoring electrodes overlie the chest. The lungs are well inflated and clear. Pulmonary vasculature is not increased. Pleural angles are sharp. Heart size is borderline, unchanged. No significant bony abnormality. Impression: No acute disease. Electronically Signed by Jair Aguilar MD 02/28/2018 05:27 P
[2018-02-28 16:36] LABS: PARTIAL THROMBOPLASTIN TIME > 240.0 SECONDS (25.4-37.6)
--- NOTE | 2018-02-28 17:28 | REP ---
CT ANGIO HEAD: HISTORY: Infarction. CONTRAST: Isovue-370, 100 mL COMPARISON: 05/27/2017 There is no aneurysm or arteriovenous malformation. Calcified atherosclerotic plaques are present in the cavernous internal carotid arteries and distal left vertebral artery at the C1-2 level. There is no significant stenosis. Major intracranial vessels are patent. The vertebral arteries are equal in size. IMPRESSION: 1. There is no aneurysm or arteriovenous malformation. 2. Atherosclerotic disease as described above. Electronically Signed by Raza Larios MD 03/01/2018 08:37 A
--- NOTE | 2018-02-28 17:36 | REP ---
CT ANGIO NECK: HISTORY: Infarction. CONTRAST: Isovue-370, 100 mL COMPARISON: 05/27/2017 The distal right common carotid artery and origins of the right external and internal carotid arteries are normal. A small calcified atherosclerotic plaque is present at the distal left common carotid artery. There is no significant stenosis. A small calcified atherosclerotic plaque is present in the left internal carotid artery, 9 mm from its origin. There is mild stenosis of 15% of the left internal carotid artery at this level. The origin of the left external carotid artery is normal. The vertebral arteries are equal in size and patent. A calcified atherosclerotic plaque is present in the distal left vertebral artery at the C1-2 level. There is no significant stenosis. Calcified atherosclerotic plaques are present at the origin of the left subclavian artery and in the proximal left and right subclavian arteries. There is no significant stenosis. IMPRESSION: Mild stenosis of 15% of the left internal carotid artery 9 mm from its origin. Electronically Signed by Raza Larios MD 03/01/2018 08:36 A
[2018-02-28] MEDS: SPIRONOLACTONE 50 MG TAB PO SCH (18:24)
[2018-02-28] MEDS ORDERED: DEXTROSE 50% 50 ML SYRINGE IV PRN (18:30)
[2018-02-28] MEDS ORDERED: GLUCOSE 4 GM CHEW TABLET PO PRN (18:30)
[2018-02-28] MEDS ORDERED: GLUCAGON FOR INJ 1 MG VIAL (J1610) SC PRN (18:30)
--- NOTE | 2018-02-28 19:23 | HPE ---
DATE OF ADMISSION: 02/28/2018 PRIMARY CARE PROVIDER: Dr. Randell Dove NEUROLOGIST: Dr. Alvarez ATTENDING PHYSICIAN: Dr. Gomez CHIEF COMPLAINT: Slurred speech. HISTORY OF PRESENT ILLNESS: The patient is a 73-year-old white female with multiple chronic medical conditions and came to the hospital for evaluation of the above complaints. History was provided by herself as well as her partner with her in the emergency room (ER). Per the patient in the last 2 weeks she had three episodes of slurred speech. First of two episodes was resolved quickly so she did not seek any medical attention. Today around 2:30 p.m., again she had trouble talking and has difficulty with words. She states that she had some neck tingling, numbness in her right hand so her partner called Dr. Alvarez's office and they recommended coming to the ER for evaluation. After she came to the ER her symptoms resolved and she underwent head CT and neck CTA and both are not significant. her brain MRI is pending on admission. The medical service was called for admission. REVIEW OF SYSTEMS: Denies fevers, no chills. She does have an intermittent headache but no blurry vision, no shortness of breath, no chest pain, no nausea, no vomiting, no abdomen pain. All other systems were reviewed. PAST MEDICAL HISTORY: 1. Type 2 diabetes. 2. Hypertension. 3. Dyslipidemia. 4. Coronary artery disease. 5. Obstructive sleep apnea on CPAP. 6. Morbid obesity. 7. Bladder cancer with urostomy. 8. Chronic diastolic congestive heart failure. 9. Chronic kidney disease stage 3. PAST SURGICAL HISTORY: Cardiac cath in 2013, radical cystectomy for the bladder cancer and right carotid endarterectomy in 2018. SOCIAL HISTORY: Remote tobacco use, quit in 1995. No alcohol abuse. No illicit drug abuse and she is a [employer]. FAMILY HISTORY: Mother had a history of diabetes. ALLERGIES: No known drug allergies. MEDICATIONS: Medications are reviewed. PHYSICAL EXAMINATION: VITALS: Temperature 97.4, heart rate 65, respiratory rate 16, blood pressure initial 214/88 down 148/68, spontaneously and Oxygen saturation 94% on room air. GENERAL: She is awake, alert and oriented times three. She is not in acute distress and she is severely obese. HEENT: Atraumatic. Pupils equal, round and reactive to light. Extraocular muscles intact. No jaundice. Ears, nose and throat normal. Mouth mucosa is not dry. NECK: No JVD, no bruits. LUNGS: Clear. No wheezes and no crackles. Heart, S1 and 2 regular. No murmur. ABDOMEN: Positive bowel sounds and nontender. EXTREMITIES: No edema in bilateral lower extremities. NEUROLOGIC: Focal. SKIN: No rash. PSYCHOMOTOR: No acute psychosis. LABS: WBC 7.5, hemoglobin and hematocrit 9.7 over 35.5, platelets 226, sodium 140, potassium 3.6, chloride 101, bicarbonate 31, BUN 18, creatinine 1.2, glucose 205. Head CT and neck CT angiogram was reviewed. Brain MRI pending IMPRESSION: 1. Possible TIA. 2 Type 2 diabetes. 3. Hypertension. 4. Dyslipidemia. 5. Obstructive sleep apnea. 6. Morbid obesity. PLAN: Patient will be admitted to progressive care unit for observation and we will continue her aspirin and Plavix and we will continue her home medications. Dr. Alvarez will consult her tomorrow. Addendum Got a call from radiologist who states the patient's brain MRI showed a new 2 mm punctate lesion in left basal ganglion area. MTDD
[2018-02-28] MEDS: ACETAMINOPHEN TAB 650MG DOSE (2X325MG) PO PRN (19:40)
[2018-02-28] MEDS: CARVedilol 3.125 MG TAB PO SCH (19:40)
[2018-02-28] MEDS ORDERED: LISINOPRIL 10 MG TAB PO ONE (20:30)
[2018-02-28] MEDS ORDERED: amLODIPine 10 MG TAB PO ONE (20:30)
--- NOTE | 2018-02-28 20:35 | REPVR ---
EXAM: MR Head Without Contrast EXAM DATE/TIME: 02/28/2018 4:08 PM CLINICAL HISTORY: 73 years old, female; Signs and symptoms; Weakness, facial; Additional info: Expressive aphasia TECHNIQUE: MR of the head without contrast. COMPARISON: MRI-Brain without Contrast 05/25/2017 8:04 AM FINDINGS: Brain: Approximately 2 mm punctate area of restricted diffusion in the left basal ganglion region laterally, bright on B-1000 images and dark on ADC map. No acute cortical infarct. Multiple old lacunar infarcts. No abnormal magnetic susceptibility signal changes. No intracranial hemorrhage. There is a background of nonspecific Flair/T2 hyperintensities within the cerebral white matter/elpidio statistically most likely on the basis of chronic small vessel ischemic change. No thalami, midbrain, suspicious brainstem or cerebellar mass. No Chiari malformation. No CP angle mass. No pituitary region mass. Ventricles: Atrophic changes. The ventricular system is midline and appropriate in size for the degree of sulcal dilatation. No hydrocephalus. Bones/joints: Unremarkable. Soft tissues: Normal. Sinuses: Normal as visualized. No acute sinusitis. Mastoid air cells: Normal as visualized. No mastoid effusion. Orbits: Unremarkable. IMPRESSION: Approximately 2 mm punctate area of restricted diffusion in the left basal ganglion region laterally. No acute cortical infarct. Multiple old lacunar infarcts. No intracranial hemorrhage. There is a background of nonspecific Flair/T2 hyperintensities within the cerebral white matter/elpidio statistically most likely on the basis of chronic small vessel ischemic change. THIS REPORT CONTAINS FINDINGS THAT MAY BE CRITICAL TO PATIENT CARE. The findings were verbally communicated via telephone conference with Dr. Gonzalez at 8:28 PM EST on 02/28/2018. The findings were acknowledged and understood. Electronically signed by: Maxx Dela Cruz On 02/28/2018 20:34:36 PM
[2018-02-28] MEDS: GABAPENTIN 100 MG CAP PO SCH (21:00)
[2018-02-28] MEDS: POTASSIUM CHLORIDE 10 MEQ SR TABLET PO SCH (21:00)
[2018-02-28] MEDS: HumaLOG INSULIN (NovoLOG) PER UNIT SC SCH (21:00)
[2018-02-28] MEDS: PRAVASTATIN 20 MG TAB PO SCH (21:01)
[2018-02-28] MEDS: tiZANidine 4 MG TAB PO SCH (21:01)
[2018-02-28] MEDS: VITAMIN D 1,000 INTERNATIONAL UNITS TABLET PO SCH (21:01)
[2018-02-28] MEDS: DOCUSATE SODIUM 100 MG CAP PO SCH (21:01)
[2018-02-28] MEDS ORDERED: LABETALOL HCL 100 MG/20 ML VIAL IV STA (21:53)
[2018-02-28] MEDS: glipiZIDE XL 5 MG TABCR PO SCH (21:57)
[2018-02-28] MEDS ORDERED: ANALGESIC BALM CRM 120 GM TOP PRN (22:00)
[2018-02-28] MEDS: HEPARIN SOD (PORCINE) 5000 UNITS/ML VIAL SC SCH (22:02)
[2018-03-01] MEDS: ANALGESIC BALM CRM 120 GM TOP PRN ×2 (03:02→21:01)
[2018-03-01] MEDS: ACETAMINOPHEN TAB 650MG DOSE (2X325MG) PO PRN ×3 (03:02→15:00)
[2018-03-01] MEDS: HEPARIN SOD (PORCINE) 5000 UNITS/ML VIAL SC SCH ×3 (06:04→21:00)
[2018-03-01 06:45] LABS: BASO % 0.3 % (0.0-1.0); EOS # 0.1 10^3/uL (0.0-0.50); EOS % 0.8 % (0.0-3.0); HEMATOCRIT 35.4 % (36.0-47.0); HEMOGLOBIN 11.7 g/dl (12.0-15.5); LYMPH # 2.1 10^3/uL (1.5-4.5); LYMPH % 29.3 % (24.0-44.0); MEAN CORPUSCULAR HEMOGLOBIN 31.7 pg (27.0-33.0); MEAN CORPUSCULAR HGB CONC 33.1 g/dl (32.0-36.5); MEAN CORPUSCULAR VOLUME 95.9 fl (80.0-96.0); MONO # 0.8 10^3/uL (0.0-0.8); MONO % 10.7 % (0.0-5.0); NEUTROPHILS # 4.1 10^3/uL (1.8-7.7); NEUTROPHILS % 58.5 % (36.0-66.0); PLATELET COUNT, AUTOMATED 225 10^3/uL (150-450); RED BLOOD COUNT 3.69 10^6/uL (4.00-5.40); WHITE BLOOD COUNT 7.1 10^3/uL (4.0-10.0)
[2018-03-01 07:20] LABS: CHOLESTEROL RISK RATIO 5.266 (<5); MAGNESIUM LEVEL 1.8 MG/DL (1.8-2.4); THYROID STIMULATING HORMONE 5.2 uIU/ML (0.358-3.740)
[2018-03-01] MEDS ORDERED: cloNIDine 0.1 MG TAB PO ONE (07:30)
[2018-03-01 08:00] VITALS: BP 164/72
[2018-03-01] MEDS: hydrALAZINE INJ 20 MG/ML VIAL IV SCH ×4 (08:00→20:00)
[2018-03-01 08:11] LABS: CALCIUM LEVEL 8.3 MG/DL (8.8-10.2); CREATININE FOR GFR 1.21 MG/DL (0.55-1.30); GLOMERULAR FILTRATION RATE 46.7 (>39); MB/CK RELATIVE INDEX 1.85 (< OR =4); POTASSIUM SERUM 3.3 MEQ/L (3.5-5.1); TROPONIN I 0.02 NG/ML (< 0.10)
[2018-03-01] MEDS: DOCUSATE SODIUM 100 MG CAP PO SCH ×2 (08:21→20:45)
[2018-03-01] MEDS: CLOPIDOGREL 75 MG TAB PO SCH (08:22)
[2018-03-01] MEDS: HumaLOG INSULIN (NovoLOG) PER UNIT SC SCH ×4 (08:22→20:44)
[2018-03-01] MEDS: tiZANidine 4 MG TAB PO SCH ×3 (08:22→20:45)
[2018-03-01] MEDS: ASPIRIN 81 MG ENTERIC TAB PO SCH (08:22)
[2018-03-01] MEDS: VITAMIN D 1,000 INTERNATIONAL UNITS TABLET PO SCH ×2 (08:22→20:48)
[2018-03-01] MEDS: amLODIPine 10 MG TAB PO SCH (08:23)
[2018-03-01] MEDS: POTASSIUM CHLORIDE 10 MEQ SR TABLET PO SCH ×2 (08:23→20:44)
[2018-03-01] MEDS: SPIRONOLACTONE 50 MG TAB PO SCH ×2 (08:23→17:25)
[2018-03-01] MEDS: CARVedilol 3.125 MG TAB PO SCH ×2 (08:24→20:45)
[2018-03-01] MEDS: GABAPENTIN 100 MG CAP PO SCH ×2 (08:24→20:45)
[2018-03-01] MEDS ORDERED: LISINOPRIL 10 MG TAB PO SCH (09:00)
[2018-03-01] MEDS ORDERED: TORSEMIDE 20 MG TAB PO SCH (09:00)
[2018-03-01] MEDS: glipiZIDE XL 5 MG TABCR PO SCH ×2 (09:23→20:43)
[2018-03-01 09:38] VITALS: BP 121/58
--- NOTE | 2018-03-01 10:41 | ECGEPIP ---
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
[2018-03-01 12:00] VITALS: BP 140/65
--- NOTE | 2018-03-01 13:35 | IPNPDOC ---
Date Seen The patient was seen on 03/01/18. Progress Note SUBJECTIVE: Denies fevers, no chills. She does have an intermittent headache but no blurry vision, no shortness of breath, no chest pain, pressure, tightness, dizziness, lightheadedness, dizziness. no nausea, no vomiting, no abdomen pain. c/o weakness everywhere. OBJECTIVE: PHYSICAL EXAMINATION: VITALS: PLS SEE BELOW GENERAL: She is awake, alert and oriented times three. She is not in acute distress and she is severely obese. HEENT: Atraumatic. Pupils equal, round and reactive to light. Extraocular muscles intact. No jaundice. Ears, nose and throat normal. Mouth mucosa is not dry. NECK: No JVD, no bruits. LUNGS: Clear. No wheezes and no crackles. Heart, S1 and 2 regular. No murmur. ABDOMEN: Positive bowel sounds and nontender. EXTREMITIES: No edema in bilateral lower extremities. NEUROLOGIC: Focal. SKIN: No rash. PSYCHOMOTOR: No acute psychosis. LABS: REVIEWED, PLS SEE BELOW IMAGING STUDIES: EXAM: MR Head Without Contrast EXAM DATE/TIME: 02/28/2018 4:08 PM CLINICAL HISTORY: 73 years old, female; Signs and symptoms; Weakness, facial; Additional info: Expressive aphasia TECHNIQUE: MR of the head without contrast. COMPARISON: MRI-Brain without Contrast 05/25/2017 8:04 AM FINDINGS: Brain: Approximately 2 mm punctate area of restricted diffusion in the left basal ganglion region laterally, bright on B-1000 images and dark on ADC map. No acute cortical infarct. Multiple old lacunar infarcts. No abnormal magnetic susceptibility signal changes. No intracranial hemorrhage. There is a background of nonspecific Flair/T2 hyperintensities within the cerebral white matter/elpidio statistically most likely on the basis of chronic small vessel ischemic change. No thalami, midbrain, suspicious brainstem or cerebellar mass. No Chiari malformation. No CP angle mass. No pituitary region mass. Ventricles: Atrophic changes. The ventricular system is midline and appropriate in size for the degree of sulcal dilatation. No hydrocephalus. Bones/joints: Unremarkable. Soft tissues: Normal. Sinuses: Normal as visualized. No acute sinusitis. Mastoid air cells: Normal as visualized. No mastoid effusion. Orbits: Unremarkable. IMPRESSION: Approximately 2 mm punctate area of restricted diffusion in the left basal ganglion region laterally. No acute cortical infarct. Multiple old lacunar infarcts. No intracranial hemorrhage. There is a background of nonspecific Flair/T2 hyperintensities within the cerebral white matter/elpidio statistically most likely on the basis of chronic small vessel ischemic change. THIS REPORT CONTAINS FINDINGS THAT MAY BE CRITICAL TO PATIENT CARE. The findings were verbally communicated via telephone conference with Dr. Gonzalez at 8:28 PM EST on 02/28/2018. The findings were acknowledged and understood. Electronically signed by: Yessica Kwok On 02/28/2018 20:34:36 PM DD: YESSICA KWOK MD 02/28/18 1608 DT: GUERLINE 02/28/182033 DS: HIMA 02/28/182033 CT ANGIO HEAD: HISTORY: Infarction. CONTRAST: Isovue-370, 100 mL COMPARISON: 05/27/2017 There is no aneurysm or arteriovenous malformation. Calcified atherosclerotic plaques are present in the cavernous internal carotid arteries and distal left vertebral artery at the C1-2 level. There is no significant stenosis. Major intracranial vessels are patent. The vertebral arteries are equal in size. IMPRESSION: 1. There is no aneurysm or arteriovenous malformation. 2. Atherosclerotic disease as described above. Electronically Signed by Raza Larios MD 03/01/2018 08:[address] ANGIO NECK: HISTORY: Infarction. CONTRAST: Isovue-370, 100 mL COMPARISON: 05/27/2017 The distal right common carotid artery and origins of the right external and internal carotid arteries are normal. A small calcified atherosclerotic plaque i s present at the distal left common carotid artery. There is no significant stenosis. A small calcified atherosclerotic plaque is present in the left internal carotid artery, 9 mm from its origin. There is mild stenosis of 15% of the left internal carotid artery at this level. The origin of the left external carotid artery is normal. The vertebral arteries are equal in size and patent. A calcified atherosclerotic plaque is present in the distal left vertebral artery at the C1-2 level. There is no significant stenosis. Calcified atherosclerotic plaques are present at the origin of the left subclavian artery and in the proximal left and right subclavian arteries. There is no significant stenosis. IMPRESSION: Mild stenosis of 15% of the left internal carotid artery 9 mm from its origin. Electronically Signed by Raza Larios MD 03/01/2018 08:36 A DD: Raza Larios MD 02/28/18 1654 DT: JACOB 02/28/18 1736 DS: LYLA 03/01/18 0836 03/01/18 0836 Portable chest x-ray: Single view. History: CVA. Comparison study: October 23, 2017. Findings: EKG monitoring electrodes overlie the chest. The lungs are well inflated and clear. Pulmonary vasculature is not increased. Pleural angles are sharp. Heart size is borderline, unchanged. No significant bony abnormality. Impression: No acute disease. Electronically Signed by Jair Aguilar MD 02/28/2018 05:27 P DD: Jair Aguilar MD 02/28/18 1600 DT: JACOB 02/28/18 1631 DS: WISAM 02/28/18 1727 02/28/18 1727 ASSESSMENT AND PLAN: The patient is a 73-year-old white female with multiple chronic medical conditions and came to the hospital for evaluation of the above complaints. History was provided by herself as well as her partner with her in the emergency room (ER). Per the patient in the last 2 weeks she had three episodes of slurred speech. First of two episodes was resolved quickly so she did not seek any medical attention. Today around 2:30 p.m., again she had trouble talking and has difficulty with words. She states that she had some neck tingling, numbness in her right hand so her partner called Dr. Alvarez's office and they recommended coming to the ER for evaluation. After she came to the ER her symptoms resolved and she underwent head CT and neck CTA and both are not significant. her brain MRI is pending on admission. The medical service was called for admission. Expressive Aphasia, resolved/TIA MRI brain: small punctate lesion in left basal ganglia 02/28/18. neurochecks q4hrs. Telemetry monitoring. Neurology consult. CTA Neck: unremarkable. HTN urgency resume home meds. iv hydralazine if remains uncontrolled, with holding parameters. Type 2 diabetes. consistent carbs diet, insulin sliding scale with coverage, resume home meds. Dyslipidemia. check lipid profile, resume home meds Coronary artery disease/Cardiac cath in 2013, and right carotid endarterectomy in 2018. no acute ischemic symptoms. resume home meds and titrate bp meds for better control Obstructive sleep apnea on CPAP. may use home cpap at home setting. Morbid obesity BMI 32.7 complicating care Bladder cancer with urostomy/radical cystectomy for the bladder cancer no acute symptoms or c/o hematuria Chronic diastolic congestive heart failure. appears to be euvolemic and compensated. resumed home meds. Chronic kidney disease stage 3. renally dose meds, and avoid nephrotoxics. disposition: pending clinical improvement and pending neurology consultation. VS, I&O, 24H, Fishbone Vital Signs/I&O Vital Signs Date Time Temp Pulse Resp B/P (MAP) Pulse Ox O2 Delivery O2 Flow Rate FiO2 03/01/18 12:00 97.8 66 20 140/65 (90) 92 Room Air Laboratory Data 24H LABS Laboratory Tests 2 02/28/18 15:21: Immature Granulocyte % (Auto) 0.5, White Blood Count 7.5, Red Blood Count 3.68L, Hemoglobin 11.7L, Hematocrit 35.5L, Mean Corpuscular Volume 96.5H, Mean Corpuscular Hemoglobin 31.8, Mean Corpuscular Hemoglobin Concent 33.0, Red Cell Distribution Width 13.0, Platelet Count 226, Neutrophils (%) (Auto) 61.3, Lymphocytes (%) (Auto) 26.0, Monocytes (%) (Auto) 11.1H, Eosinophils (%) (Auto) 0.8, Basophils (%) (Auto) 0.3, Neutrophils # (Auto) 4.6, Lymphocytes # (Auto) 1.9, Monocytes # (Auto) 0.8, Eosinophils # (Auto) 0.1, Basophils # (Auto) 0.0, Nucleated Red Blood Cells % (auto) 0.0, Prothrombin Time 21.1H, Prothromb Time International Ratio 1.79, Activated Partial Thromboplast Time > 240.0*H, Anion Gap 8, Glomerular Filtration Rate 45.8, Blood Urea Nitrogen 18, Creatinine 1.23, Sodium Level 140, Potassium Level 3.6, Chloride Level 101, Carbon Dioxide Level 31, Calcium Level 8.6L, Total Creatine Kinase 152, Creatine Kinase MB 4.0H, Creatine Kinase MB Relative Index 2.63, Troponin I < 0.02 02/28/18 17:45: Bedside Glucose (Misc Panel) 129H 02/28/18 20:46: Bedside Glucose (Misc Panel) 223H 03/01/18 06:34: Immature Granulocyte % (Auto) 0.4, White Blood Count 7.1, Red Blood Count 3.69L, Hemoglobin 11.7L, Hematocrit 35.4L, Mean Corpuscular Volume 95.9, Mean Corpuscular Hemoglobin 31.7, Mean Corpuscular Hemoglobin Concent 33.1, Red Cell Distribution Width 12.8, Platelet Count 225, Neutrophils (%) (Auto) 58.5, Lymphocytes (%) (Auto) 29.3, Monocytes (%) (Auto) 10.7H, Eosinophils (%) (Auto) 0.8, Basophils (%) (Auto) 0.3, Neutrophils # (Auto) 4.1, Lymphocytes # (Auto) 2.1, Monocytes # (Auto) 0.8, Eosinophils # (Auto) 0.1, Basophils # (Auto) 0.0, Nucleated Red Blood Cells % (auto) 0.0, Anion Gap 6L, Glomerular Filtration Rate 46.7, Blood Urea Nitrogen 16, Creatinine 1.21, Sodium Level 141, Potassium Level 3.3L, Chloride Level 101, Carbon Dioxide Level 34H, Calcium Level 8.3L, Total Creatine Kinase 135, Creatine Kinase MB 2.0, Creatine Kinase MB Relative Index 1.85, Troponin I 0.02, Magnesium Level 1.8, Triglycerides Level 237H, LDL Cholesterol 81, Total Cholesterol 158, Non-HDL Cholesterol (LDL + VLDL) 128, Total HDL Cholesterol 30L, Cholesterol/HDL Ratio 5.266H, Thyroid Stimulating Hormone (TSH) 5.200H 03/01/18 08:07: Bedside Glucose (Misc Panel) 142H CBC/BMP Laboratory Tests 02/28/18 15:21 Red Blood Count 3.68 L, Mean Corpuscular Volume 96.5 H, Mean Corpuscular Hemoglobin 31.8, Mean Corpuscular Hemoglobin Concent 33.0, Red Cell Distribution Width 13.0, Neutrophils (%) (Auto) 61.3, Lymphocytes (%) (Auto) 26.0, Monocytes (%) (Auto) 11.1 H, Eosinophils (%) (Auto) 0.8, Basophils (%) (Auto) 0.3, Neutrophils # (Auto) 4.6, Lymphocytes # (Auto) 1.9, Monocytes # (Auto) 0.8, Eosinophils # (Auto) 0.1, Basophils # (Auto) 0.0, Calcium Level 8.6 L, Total Creatine Kinase 152 03/01/18 06:34 Red Blood Count 3.69 L, Mean Corpuscular Volume 95.9, Mean Corpuscular Hemoglobin 31.7, Mean Corpuscular Hemoglobin Concent 33.1, Red Cell Distribution Width 12.8, Neutrophils (%) (Auto) 58.5, Lymphocytes (%) (Auto) 29.3, Monocytes (%) (Auto) 10.7 H, Eosinophils (%) (Auto) 0.8, Basophils (%) (Auto) 0.3, Neutrophils # (Auto) 4.1, Lymphocytes # (Auto) 2.1, Monocytes # (Auto) 0.8, Eosinophils # (Auto) 0.1, Basophils # (Auto) 0.0, Calcium Level 8.3 L, Total Creatine Kinase 135 BRICE ROBLES MD Mar 01, 2018 13:24
[2018-03-01 15:00] VITALS: BP 135/58
[2018-03-01 16:00] VITALS: BP 137/65
[2018-03-01 20:00] VITALS: BP 146/65
[2018-03-01] MEDS: KORLYM PO SCH (20:42)
[2018-03-01] MEDS: rOPINIRole 0.25 MG TAB(REQUIP) PO SCH (20:43)
[2018-03-01] MEDS: PRAVASTATIN 20 MG TAB PO SCH (20:44)
[2018-03-01] MEDS ORDERED: KORLYM PO SCH (21:00)
[2018-03-01] MEDS ORDERED: traZODone 50 MG TAB PO SCH (21:00)
[2018-03-02] VITALS (12 sets, daily range): BP systolic 111–180; BP diastolic 53–77
[2018-03-02] MEDS: hydrALAZINE INJ 20 MG/ML VIAL IV SCH ×2 (05:00)
[2018-03-02] MEDS: HEPARIN SOD (PORCINE) 5000 UNITS/ML VIAL SC SCH ×3 (05:01→21:05)
[2018-03-02] MEDS ORDERED: LISINOPRIL 20 MG TAB PO ONE (06:45)
[2018-03-02 07:16] LABS: BASO % 0.4 % (0.0-1.0); EOS # 0.1 10^3/uL (0.0-0.50); EOS % 1.3 % (0.0-3.0); HEMATOCRIT 33.5 % (36.0-47.0); HEMOGLOBIN 10.9 g/dl (12.0-15.5); LYMPH # 1.9 10^3/uL (1.5-4.5); LYMPH % 34.8 % (24.0-44.0); MEAN CORPUSCULAR HEMOGLOBIN 31.4 pg (27.0-33.0); MEAN CORPUSCULAR HGB CONC 32.5 g/dl (32.0-36.5); MEAN CORPUSCULAR VOLUME 96.5 fl (80.0-96.0); MONO # 0.7 10^3/uL (0.0-0.8); MONO % 12.1 % (0.0-5.0); NEUTROPHILS # 2.8 10^3/uL (1.8-7.7); NEUTROPHILS % 50.9 % (36.0-66.0); PLATELET COUNT, AUTOMATED 204 10^3/uL (150-450); RED BLOOD COUNT 3.47 10^6/uL (4.00-5.40); WHITE BLOOD COUNT 5.5 10^3/uL (4.0-10.0)
--- NOTE | 2018-03-02 07:38 | IPNPDOC ---
Date Seen The patient was seen on 03/02/18. Progress Note SUBJECTIVE: Headache resolved after blood pressure improved. Pt has normal speech with no expressive aphasia. Per RN overnight, pt was noncompliant with her CPAP and would take off the mask at times. This morning, she c/o generalized weakness, which is unchanged from yesterday. no paresthesias. OBJECTIVE: PHYSICAL EXAMINATION: VITALS: PLS SEE BELOW GENERAL: She is awake, alert and oriented times three. She is not in acute distress and she is severely obese. speech is fluent. no facial asymmetry. HEENT: Atraumatic. Pupils equal, round and reactive to light. Extraocular muscles intact. No jaundice. Ears, nose and throat normal. Mouth mucosa is not dry. NECK: No JVD, no bruits. LUNGS: Clear. No wheezes and no crackles. Heart, S1 and 2 regular. No murmur. ABDOMEN: Positive bowel sounds and nontender. EXTREMITIES: No edema in bilateral lower extremities. NEUROLOGIC: Focal. SKIN: No rash. PSYCHOMOTOR: No acute psychosis. LABS: REVIEWED, PLS SEE BELOW IMAGING STUDIES: EXAM: MR Head Without Contrast EXAM DATE/TIME: 02/28/2018 4:08 PM CLINICAL HISTORY: 73 years old, female; Signs and symptoms; Weakness, facial; Additional info: Expressive aphasia TECHNIQUE: MR of the head without contrast. COMPARISON: MRI-Brain without Contrast 05/25/2017 8:04 AM FINDINGS: Brain: Approximately 2 mm punctate area of restricted diffusion in the left basal ganglion region laterally, bright on B-1000 images and dark on ADC map. No acute cortical infarct. Multiple old lacunar infarcts. No abnormal magnetic susceptibility signal changes. No intracranial hemorrhage. There is a background of nonspecific Flair/T2 hyperintensities within the cerebral white matter/elpidio statistically most likely on the basis of chronic small vessel ischemic change. No thalami, midbrain, suspicious brainstem or cerebellar mass. No Chiari malformation. No CP angle mass. No pituitary region mass. Ventricles: Atrophic changes. The ventricular system is midline and appropriate in size for the degree of sulcal dilatation. No hydrocephalus. Bones/joints: Unremarkable. Soft tissues: Normal. Sinuses: Normal as visualized. No acute sinusitis. Mastoid air cells: Normal as visualized. No mastoid effusion. Orbits: Unremarkable. IMPRESSION: Approximately 2 mm punctate area of restricted diffusion in the left basal ganglion region laterally. No acute cortical infarct. Multiple old lacunar infarcts. No intracranial hemorrhage. There is a background of nonspecific Flair/T2 hyperintensities within the cerebral white matter/elpidio statistically most likely on the basis of chronic small vessel ischemic change. THIS REPORT CONTAINS FINDINGS THAT MAY BE CRITICAL TO PATIENT CARE. The findings were verbally communicated via telephone conference with Dr. Gonzalez at 8:28 PM EST on 02/28/2018. The findings were acknowledged and understood. Electronically signed by: Yessica Kwok On 02/28/2018 20:34:36 PM DD: YESSICA KWOK MD 02/28/18 1608 DT: GUERLINE 02/28/182033 DS: HIMA 02/28/182033 CT ANGIO HEAD: HISTORY: Infarction. CONTRAST: Isovue-370, 100 mL COMPARISON: 05/27/2017 There is no aneurysm or arteriovenous malformation. Calcified atherosclerotic plaques are present in the cavernous internal carotid arteries and distal left vertebral artery at the C1-2 level. There is no significant stenosis. Major intracranial vessels are patent. The vertebral arteries are equal in size. IMPRESSION: 1. There is no aneurysm or arteriovenous malformation. 2. Atherosclerotic disease as described above. Electronically Signed by Raza Larios MD 03/01/2018 08:[address] ANGIO NECK: HISTORY: Infarction. CONTRAST: Isovue-370, 100 mL COMPARISON: 05/27/2017 The distal right common carotid artery and origins of the right external and internal carotid arteries are normal. A small calcified atherosclerotic plaque is present at the distal left common carotid artery. There is no significant stenosis. A small calcified atherosclerotic plaque is present in the left internal carotid artery, 9 mm from its origin. There is mild stenosis of 15% of the left internal carotid artery at this level. The origin of the left external carotid artery is normal. The vertebral arteries are equal in size and patent. A calcified atherosclerotic plaque is present in the distal left vertebral artery at the C1-2 level. There is no significant stenosis. Calcified atherosclerotic plaques are present at the origin of the left subclavian artery and in the proximal left and right subclavian arteries. There is no significant stenosis. IMPRESSION: Mild stenosis of 15% of the left internal carotid artery 9 mm from its origin. Electronically Signed by Raza Larios MD 03/01/2018 08:36 A DD: Raza Larios MD 02/28/18 1654 DT: JACOB 02/28/18 1736 DS: LYLA 03/01/18 0836 03/01/18 0836 Portable chest x-ray: Single view. History: CVA. Comparison study: October 23, 2017. Findings: EKG monitoring electrodes overlie the chest. The lungs are well inflated and clear. Pulmonary vasculature is not increased. Pleural angles are sharp. Heart size is borderline, unchanged. No significant bony abnormality. Impression: No acute disease. Electronically Signed by Jair Aguilar MD 02/28/2018 05:27 P DD: Jair Aguilar MD 02/28/18 1600 DT: JACOB 02/28/18 1631 DS: WISAM 02/28/18 1727 02/28/18 1727 ASSESSMENT AND PLAN: The patient is a 73-year-old white female with multiple chronic medical conditions and came to the hospital for evaluation of the above complaints. History was provided by herself as well as her partner with her in the emergency room (ER). Per the patient in the last 2 weeks she had three episodes of slurred speech. First of two episodes was resolved quickly so she did not seek any medical attention. Today around 2:30 p.m., again she had trouble talking and has difficulty with words. She states that she had some neck tingling, numbness in her right hand so her partner called Dr. Alvarez's office and they recommended coming to the ER for evaluation. After she came to the ER her symptoms resolved and she underwent head CT and neck CTA and both are not significant. her brain MRI is pending on admission. The medical service was called for admission. Expressive Aphasia, resolved/TIA MRI brain: small punctate lesion in left basal ganglia 02/28/18. neurochecks q4hrs. s/p Telemetry monitoring. Neurology consulted, Dr. Alvarez. CTA Neck: unremarkable. HTN urgency resume home meds. s/p hydralazine if remains uncontrolled, with holding parameters. on increased dose of lisinopril, hydralazine. stable for medsurg transfer Type 2 diabetes. consistent carbs diet, insulin sliding scale with coverage, resume home meds. Dyslipidemia. check lipid profile, resume home meds Coronary artery disease/Cardiac cath in 2013, and right carotid endarterectomy in 2018. no acute ischemic symptoms. resume home meds and titrate bp meds for better control Obstructive sleep apnea on CPAP. may use home cpap at home setting. Morbid obesity BMI 32.7 complicating care Bladder cancer with urostomy/radical cystectomy for the bladder cancer no acute symptoms or c/o hematuria Chronic diastolic congestive heart failure. appears to be euvolemic and compensated. resumed home meds. Chronic kidney disease stage 3. renally dose meds, and avoid nephrotoxics. disposition: pending clinical improvement and pending neurology consultation. may transfer to med surg. PT clearance VS, I&O, 24H, Fishbone Vital Signs/I&O Vital Signs Date Time Temp Pulse Resp B/P (MAP) Pulse Ox O2 Delivery O2 Flow Rate FiO2 03/02/18 07:16 149/68 03/02/18 06:25 94 Nasal Cannula 1.0 03/02/18 05:25 70 03/02/18 04:00 97.9 16 I&O- Last 24 Hours up to 6 AM 03/02/18 05:59 Intake Total 1270 ml Output Total 1800 ml Balance -530 ml Laboratory Data 24H LABS Laboratory Tests 2 03/01/18 08:07: Bedside Glucose (Misc Panel) 142H 03/01/18 12:25: Bedside Glucose (Misc Panel) 237H 03/01/18 17:01: Bedside Glucose (Misc Panel) 247H 03/01/18 20:29: Bedside Glucose (Misc Panel) 251H 03/02/18 06:57: Immature Granulocyte % (Auto) 0.5, White Blood Count 5.5, Red Blood Count 3.47L, Hemoglobin 10.9L, Hematocrit 33.5L, Mean Corpuscular Volume 96.5H, Mean Corpuscular Hemoglobin 31.4, Mean Corpuscular Hemoglobin Concent 32.5, Red Cell Distribution Width 12.6, Platelet Count 204, Neutrophils (%) (Auto) 50.9, Lymphocytes (%) (Auto) 34.8, Monocytes (%) (Auto) 12.1H, Eosinophils (%) (Auto) 1.3, Basophils (%) (Auto) 0.4, Neutrophils # (Auto) 2.8, Lymphocytes # (Auto) 1.9, Monocytes # (Auto) 0.7, Eosinophils # (Auto) 0.1, Basophils # (Auto) 0.0, Nucleated Red Blood Cells % (auto) 0.0 CBC/BMP Laboratory Tests 03/02/18 06:57 Red Blood Count 3.47 L, Mean Corpuscular Volume 96.5 H, Mean Corpuscular Hemoglobin 31.4, Mean Corpuscular Hemoglobin Concent 32.5, Red Cell Distribution Width 12.6, Neutrophils (%) (Auto) 50.9, Lymphocytes (%) (Auto) 34.8, Monocytes (%) (Auto) 12.1 H, Eosinophils (%) (Auto) 1.3, Basophils (%) (Auto) 0.4, Neutrophils # (Auto) 2.8, Lymphocytes # (Auto) 1.9, Monocytes # (Auto) 0.7, Eosinophils # (Auto) 0.1, Basophils # (Auto) 0.0 BRICE ROBLES MD Mar 02, 2018 07:38
[2018-03-02 07:51] LABS: ALBUMIN 2.6 GM/DL (3.2-5.2); ALT/SGPT 14 U/L (12-78); BILIRUBIN,TOTAL 0.3 MG/DL (0.2-1.0); BLOOD UREA NITROGEN 25 MG/DL (7-18); CALCIUM LEVEL 8.5 MG/DL (8.8-10.2); CARBON DIOXIDE LEVEL 30 MEQ/L (21-32); CHLORIDE LEVEL 103 MEQ/L (98-107); CPK CREATINE PHOSPHOKINASE 179 U/L (26-192); CREATININE FOR GFR 1.46 MG/DL (0.55-1.30); GLOMERULAR FILTRATION RATE 37.6 (>39); GLUCOSE, FASTING 233 MG/DL (70-100); MB/CK RELATIVE INDEX 1.34 (< OR =4); POTASSIUM SERUM 3.8 MEQ/L (3.5-5.1); SODIUM LEVEL 141 MEQ/L (136-145); T UPTAKE 33 % (30-39); THYROXINE (T4) 6.1 UG/DL (4.5-12.0); TOTAL PROTEIN 6.5 GM/DL (6.4-8.2); TROPONIN I < 0.02 NG/ML (< 0.10)
[2018-03-02] MEDS: HumaLOG INSULIN (NovoLOG) PER UNIT SC SCH ×4 (08:48→21:00)
[2018-03-02] MEDS: CARVedilol 3.125 MG TAB PO SCH ×2 (08:50→20:53)
[2018-03-02] MEDS: GABAPENTIN 100 MG CAP PO SCH ×2 (08:50→20:53)
[2018-03-02] MEDS: POTASSIUM CHLORIDE 10 MEQ SR TABLET PO SCH ×2 (08:52→20:52)
[2018-03-02] MEDS: glipiZIDE XL 5 MG TABCR PO SCH ×2 (08:52→20:54)
[2018-03-02] MEDS: CLOPIDOGREL 75 MG TAB PO SCH (08:53)
[2018-03-02] MEDS: VITAMIN D 1,000 INTERNATIONAL UNITS TABLET PO SCH ×2 (08:53→20:51)
[2018-03-02] MEDS: cloNIDine 0.1 MG TAB PO SCH ×4 (08:54→20:53)
[2018-03-02] MEDS: SPIRONOLACTONE 50 MG TAB PO SCH ×2 (08:54→16:03)
[2018-03-02] MEDS: ASPIRIN 81 MG ENTERIC TAB PO SCH (08:54)
[2018-03-02] MEDS: amLODIPine 10 MG TAB PO SCH (08:55)
[2018-03-02] MEDS: tiZANidine 4 MG TAB PO SCH ×3 (08:56→20:52)
[2018-03-02] MEDS: DOCUSATE SODIUM 100 MG CAP PO SCH ×2 (08:56→20:53)
[2018-03-02] MEDS: KORLYM PO SCH ×2 (08:56→20:50)
[2018-03-02] MEDS ORDERED: TORSEMIDE 10 MG TABLET PO SCH (09:00)
[2018-03-02] MEDS ORDERED: PILL CRUSHER/CUTTER 1 EACH XX PRN (09:15)
--- NOTE | 2018-03-02 09:48 | CR ---
DATE OF CONSULTATION: 03/02/2018 REFERRING PHYSICIAN: Dr. Jonelle Gomez REASON FOR CONSULTATION: Slurred speech. HISTORY OF PRESENT ILLNESS: Yolanda Ng is a 73-year-old woman who has history of type 2 diabetes, hypertension, dyslipidemia, coronary artery disease, stroke, chronic kidney disease stage III who presented to [facility] due to three episodes of slurred speech in the last two weeks. First two episodes resolved quickly, so she did not seek medical attention. On February 28, 2018 she developed slurred speech and difficulty with words around 2:30 p.m. She also felt numbness, tingling in the right arm. They called our office, but I recommended that they go to emergency department for admission for possible transient ischemic attack (TIA) or stroke. The patient's symptoms improved in the emergency department. Her CT scan of head and CT angiography of head and neck did not reveal significant problem in the emergency department. MRI scan of brain showed a small left basal ganglia 2 mm lacunar acute ischemic stroke. The patient also complains of leg spasms in the muscles and her legs jump on their own. She feels electrical shock like sensation in the evening and at night time. This has been going on for 2 years. It does not happen when she is standing and walking around. There are no muscle cramps. She has been taking ropinirole at nighttime for restless legs. This has not been started during this admission. PAST MEDICAL HISTORY: Type 2 diabetes. Hypertension. Dyslipidemia. Coronary artery disease. Obstructive sleep apnea syndrome on CPAP. Obesity. Bladder cancer. Chronic diastolic congestive heart failure. Chronic kidney disease stage III. Carotid endarterectomy on right side in 2018. Radical cystectomy of urinary bladder for cancer. Stroke. SOCIAL HISTORY: She quit smoking in 1995. She denies alcohol or illicit drugs. FAMILY HISTORY: Significant for diabetes. Mother had diabetes. ALLERGIES: None. CURRENT MEDICATIONS: - aspirin 81 mg by mouth by mouth daily - Plavix 75 mg by mouth daily - ropinirole 0.5 mg by mouth at bedtime - amlodipine - hydralazine - carvedilol - gabapentin 100 mg by mouth twice a day twice a day - glipizide - tizanidine - pravastatin 40 mg by mouth daily - spironolactone 50 mg in the morning REVIEW OF SYSTEMS: All systems were reviewed and found to be noncontributory except as mentioned history present illness. PHYSICAL EXAMINATION: Temperature 97.8, pulse 66m respiratory rate 20, blood pressure 140/65, 92% saturation on room air. HEART: Regular rate and rhythm. LUNGS: Clear to auscultation. ABDOMEN: Soft, nontender, nondistended. No pedal edema. No musculoskeletal abnormalities. No rash. No signs of meningeal irritation. No tremor, dysmetria or ataxia. The patient is awake, alert, oriented to place, person and time. Normal speech comprehension and repetition. Extraocular muscles are intact. No facial weakness. Tongue and uvula are midline. Visual oswald are full to confrontation. Pupils are 6 mm bilaterally, reactive to light. Her recent and distant memory is intact. There is no nystagmus. 5/5 strength in all four extremities. Deep tendon flexes are 1+ in arms and knees, and absent at ankles. She has decreased cold pinprick vibration sensation in her feet. Her gait is mildly unsteady. DIAGNOSTIC STUDIES: MRI scan of brain showed a small 2 mm left basal ganglia acute lacunar stroke. CT angiography of head and neck showed 15% left internal carotid artery stenosis and mild atherosclerosis of internal carotid artery intracranially. Telemetry showed normal sinus rhythm. ASSESSMENT: 1. Small acute left basal ganglia lacunar ischemic stroke. 2. History of stroke and right carotid endarterectomy in 2018. 3. Obstructive sleep apnea syndrome. 4. Restless leg syndrome and periodic limb movements of sleep. 5. Diabetic peripheral neuropathy. PLAN: 1. Increase ropinirole to 0.5 mg by mouth twice a day We will increase the dose of gabapentin as the next step and if needed, may increase ropinirole further. 2. Trazodone 50 mg by mouth at bedtime for insomnia. Patient has difficulty falling and staying asleep in addition to her sleep apnea. 3. Continue aspirin 81 mg by mouth daily and Plavix 75 mg by mouth daily. 4. Pravastatin 40 mg daily. 5. Keep systolic blood pressure below 180 and diastolic blood pressure below 100 in acute and subacute stages of her stroke treatment. Long-term target for her blood pressure control should be below 140/90. 6. Follow with our office in 2-4 weeks after hospital discharge. She should have physical and occupational therapy while in the hospital.
[2018-03-02] MEDS: **hydrALAZINE HCL** 25 MG TAB PO SCH ×3 (12:13→23:14)
[2018-03-02] MEDS: rOPINIRole 0.25 MG TAB(REQUIP) PO SCH ×2 (12:13→20:51)
--- NOTE | 2018-03-02 13:30 | CR ---
DATE OF CONSULTATION: 03/01/2018 REQUESTING PHYSICIAN: Dr. Sergey Cabrera. REASON FOR CONSULTATION: Chronic kidney disease (CKD), stage III, history of hypokalemia and chronic diastolic congestive heart failure. HISTORY OF PRESENT ILLNESS: Yolanda is a 73-year-old female well-known to me with a past medical history of type 2 diabetes, hypertension, dyslipidemia, coronary artery disease, history of stroke, CKD stage III, chronic diastolic congestive heart failure, history of bladder cancer and status post radical cystectomy and history of severe hypokalemia and other conditions mentioned below. The patient reports that she had two episodes of slurred speech and right-side facial droop over the past 2 weeks. The episodes were brief and self-resolved so she did not seek medical attention. She then developed a third episode of the same. Her significant other was very concerned. The called her neurologist, Dr. Alvarez who advised that she come to the emergency room for further evaluation. Her symptoms improved in the emergency department. She had a CT of the head and CT angiography of head and neck which did not show any acute findings. Her MRI of the brain showed a small acute infarct in the left basal ganglia. PAST MEDICAL/SURGICAL HISTORY: CKD stage III. History of severe hypokalemia. Chronic diastolic congestive heart failure. Type 2 diabetes. Hypertension. Dyslipidemia. Coronary artery disease. Obstructive sleep apnea on CPAP. Obesity. Bladder cancer, status post radical cystectomy. Carotid endarterectomy in 2018 on the right. SOCIAL HISTORY: She is an ex-smoker. Denies alcohol or illicit drugs. FAMILY HISTORY: Significant for diabetes. ALLERGIES: None. HOME MEDICATIONS: Reviewed and include. - potassium 40 mEq by mouth twice a day - spironolactone 50 mg by mouth twice a day - amlodipine 10 mg by mouth daily - aspirin 81 mg by mouth daily - insulin - Coreg 3.125 mg by mouth twice a day - Plavix 75 mg by mouth daily - glipizide 10 mg by mouth twice a day - Korlym 300 mg by mouth twice a day - lisinopril 10 mg by mouth daily - metformin 1000 mg by mouth twice a day - pravastatin 40 mg by mouth nightly - torsemide 20 mg by mouth daily REVIEW OF SYSTEMS: CONSTITUTIONAL: She denies fevers, chills or weight loss, weight gain. EYES: She denies visual blurring or tearing. ENT: She denies dysphagia or rhinorrhea. CARDIAC: She denies chest pain or palpitations. She has a history of diastolic congestive heart failure. RESPIRATORY: She denies shortness of breath or cough. She had a history of sleep apnea. GI: She denies nausea, vomiting, diarrhea. : She has a history of a radical cystectomy and urostomy. HEMATOLOGY: She is a diabetic. She denies any easy bruising or bleeding. ENDOCRINE: She has a history of severe hypokalemia and diabetes. NEUROLOGIC: She reports three episode of slurred speech and some numbness and tingling in the right arm and possible right face droop. The remainder of the review of systems is negative or as mentioned in the history of present illness (HPI). PHYSICAL EXAMINATION: VITAL SIGNS: Temperature 97.8, pulse 66, respiratory rate 20, blood pressure 140/65, saturating 92-96% on room air. Intake and output yesterday show equivalence of fluid balance. Weight on the bed scale today is 83 kg. GENERAL: Patient is seen lying in bed, awake, alert, oriented, comfortable, extraocular muscles are intact. Tongue is moist. NECK: Supple. Jugular veins are not elevated. HEART: Sounds are regular. S1, S2. No murmur. LUNGS: Clear to auscultation bilaterally. No crackle or rale. ABDOMEN: Soft and nontender. There is a urostomy present on the right lower quadrant with urine. EXTREMITIES: Negative for edema, clubbing or cyanosis. NEUROLOGIC: She is oriented, interactive. No focal deficit. Conversational. Midline tongue. LABS: Sodium 141, potassium 3.3, bicarbonate 34, creatinine 1.2, hemoglobin 11.7. INPATIENT IMAGING: MRI showed a small 2 mm left basal ganglia lacunar stroke. PROBLEMS: 1. Chronic kidney disease (CKD) stage III with a history of chronic diastolic congestive heart failure and history of severe and persistent hypokalemia in the past. Patient requires a significant potassium-sparing diuretic and significant oral potassium supplementation in order to maintain normal kalemia. One of her home medications Korlym causes potassium loses. She is currently not receiving it in house. Continue spirolactone 50 mg by mouth twice a day with oral potassium 40 mEq twice a day. I also note that the patient has also had an IV contrast study. There is a possibility of contrast-induced nephropathy and we will keep an eye on her renal function. Her volume status is presently well compensated and if needed, IV fluids can be given. 2. Acute ischemic stroke in the left basal ganglia lacuna. Patient is pending evaluation by neurology. She is already on aspirin, Plavix and statin. She was significantly hypertensive on arrival but blood pressure is not acceptably controlled. She continues on her home regimen with holding parameters. Thank you for involving me in the care of Ms. Ng. I will happy to follow her along with you.
--- NOTE | 2018-03-02 20:47 | IPN ---
DATE: 03/02/2018 Ms. Ng is seen this morning in intensive care unit on her bedside. The patient has multiple chronic medical problems, including a history of chronic kidney disease, stage III, prior stroke, type 2 diabetes, hypertension, and diastolic congestive heart failure. Nephrology consultation was requested because of hypokalemia and congestive heart failure. The patient was seen yesterday, and medications were adjusted. She was noticed to have another acute neurological event, for which she has been seen by neurology. She is feeling well this morning and denies any dyspnea, chest pain, nausea, or vomiting. PHYSICAL EXAMINATION: Temperature 98 degrees Fahrenheit, heart rate 64 per minute, respiratory rate 18 per minute, blood pressure 135/64 mm of mercury, and oxygen saturation 93% on 1 liter oxygen. Intake and output records from yesterday are almost even. Head is atraumatic. Neck is supple and jugular venous distention (JVD) is not elevated. There is no oral thrush or ulcers. Heart sounds are regular and lungs sound clear to auscultation. Abdomen is soft and nontender, and bowel sounds are normal. Extremities have no cyanosis or clubbing. Skin has no rash or ulcers. Neurologically, she is awake and able to answer all questions appropriately. She is moving all her limbs. Today's labs show WBC count 5.5, hemoglobin 10.9, and hematocrit 33.5. Platelets 204. Sodium 141, potassium 3.8, CO2 of 30, BUN 25 and creatinine 1.46. Glucose 233 and calcium 8.5. PROBLEMS: 1. Acute kidney injury superimposed on chronic kidney disease. Kidney function is slightly worse compared to yesterday. I am going to stop her torsemide for now, as this is most likely prerenal. Her spironolactone will be continued, and we will recheck her chemistry tomorrow morning. 2. Hypokalemia. Potassium level has improved, and we will continue with potassium supplement and potassium-sparing diuretic for today. We will recheck her electrolytes tomorrow morning. 3. Hypertension. Blood pressure seems to be reasonably well controlled on current antihypertensive medications. Will consider to make further adjustments if needed. 4. Altered mentation, most likely due to transient ischemic attack or a new stroke. She is being followed by neurology. This morning she seems to be doing well.
[2018-03-02] MEDS: PRAVASTATIN 20 MG TAB PO SCH (20:51)
[2018-03-02] MEDS: traZODone 100 MG TAB PO SCH (23:09)
[2018-03-03] VITALS (8 sets, daily range): BP systolic 126–171; BP diastolic 63–113
[2018-03-03 04:37] LABS: HEMATOCRIT 31.5 % (36.0-47.0); HEMOGLOBIN 10.2 g/dl (12.0-15.5); MEAN CORPUSCULAR HEMOGLOBIN 31.6 pg (27.0-33.0); MEAN CORPUSCULAR HGB CONC 32.4 g/dl (32.0-36.5); MEAN CORPUSCULAR VOLUME 97.5 fl (80.0-96.0); PLATELET COUNT, AUTOMATED 190 10^3/uL (150-450); RED BLOOD COUNT 3.23 10^6/uL (4.00-5.40); WHITE BLOOD COUNT 7.2 10^3/uL (4.0-10.0)
[2018-03-03 05:34] LABS: CALCIUM LEVEL 8.4 MG/DL (8.8-10.2); CREATININE FOR GFR 1.31 MG/DL (0.55-1.30); GLOMERULAR FILTRATION RATE 42.6 (>39); POTASSIUM SERUM 3.9 MEQ/L (3.5-5.1)
[2018-03-03] MEDS: HEPARIN SOD (PORCINE) 5000 UNITS/ML VIAL SC SCH ×3 (06:37→21:24)
[2018-03-03] MEDS: **hydrALAZINE HCL** 25 MG TAB PO SCH (06:37)
[2018-03-03] MEDS: glipiZIDE XL 5 MG TABCR PO SCH ×2 (08:22→20:43)
[2018-03-03] MEDS: GABAPENTIN 100 MG CAP PO SCH ×2 (08:23→20:43)
[2018-03-03] MEDS: POTASSIUM CHLORIDE 10 MEQ SR TABLET PO SCH ×2 (08:23→20:41)
[2018-03-03] MEDS: CLOPIDOGREL 75 MG TAB PO SCH (08:23)
[2018-03-03] MEDS: DOCUSATE SODIUM 100 MG CAP PO SCH ×2 (08:24→20:43)
[2018-03-03] MEDS: ASPIRIN 81 MG ENTERIC TAB PO SCH (08:24)
[2018-03-03] MEDS: VITAMIN D 1,000 INTERNATIONAL UNITS TABLET PO SCH ×2 (08:24→20:41)
[2018-03-03] MEDS: tiZANidine 4 MG TAB PO SCH ×3 (08:25→20:43)
[2018-03-03] MEDS: cloNIDine 0.1 MG TAB PO SCH ×4 (08:26→20:43)
[2018-03-03] MEDS: KORLYM PO SCH ×2 (08:27→20:41)
[2018-03-03] MEDS: CARVedilol 3.125 MG TAB PO SCH ×2 (08:27→20:44)
[2018-03-03] MEDS: amLODIPine 10 MG TAB PO SCH (08:27)
[2018-03-03] MEDS ORDERED: LISINOPRIL 20 MG TAB PO SCH (09:00)
[2018-03-03] MEDS: HumaLOG INSULIN (NovoLOG) PER UNIT SC SCH ×4 (09:15→21:23)
[2018-03-03] MEDS: **hydrALAZINE** 10 MG TAB PO SCH ×2 (12:00→18:00)
[2018-03-03] MEDS: rOPINIRole 0.25 MG TAB(REQUIP) PO SCH ×2 (12:42→20:44)
--- NOTE | 2018-03-03 17:09 | IPNPDOC ---
Date Seen The patient was seen on 03/03/18. Progress Note SUBJECTIVE: Pt refuses to wear her CPAP. "The mask doesn't fit. I don't like it." BP improved and kept<140mmHg systolic as a goal. Pt c/o difficulty holding her utensils. OT consulted. She is left-handed at baseline. OBJECTIVE: PHYSICAL EXAMINATION: VITALS: PLS SEE BELOW GENERAL: She is awake, alert and oriented times three. She is not in acute distress and she is severely obese. speech is fluent. no facial asymmetry. HEENT: Atraumatic. Pupils equal, round and reactive to light. Extraocular muscles intact. No jaundice. Ears, nose and throat normal. Mouth mucosa is not dry. NECK: No JVD, no bruits. LUNGS: Clear. No wheezes and no crackles. Heart, S1 and 2 regular. No murmur. ABDOMEN: Positive bowel sounds and nontender. EXTREMITIES: No edema in bilateral lower extremities. NEUROLOGIC: decreased deliver driver left>>right. no facial asymmetry.speech is fluent. gait not tested. SKIN: No rash. PSYCHOMOTOR: No acute psychosis. LABS: REVIEWED, PLS SEE BELOW IMAGING STUDIES: EXAM: MR Head Without Contrast EXAM DATE/TIME: 02/28/2018 4:08 PM CLINICAL HISTORY: 73 years old, female; Signs and symptoms; Weakness, facial; Additional info: Expressive aphasia TECHNIQUE: MR of the head without contrast. COMPARISON: MRI-Brain without Contrast 05/25/2017 8:04 AM FINDINGS: Brain: Approximately 2 mm punctate area of restricted diffusion in the left basal ganglion region laterally, bright on B-1000 images and dark on ADC map. No acute cortical infarct. Multiple old lacunar infarcts. No abnormal magnetic susceptibility signal changes. No intracranial hemorrhage. There is a background of nonspecific Flair/T2 hyperintensities within the cerebral white matter/elpidio statistically most likely on the basis of chronic small vessel ischemic change. No thalami, midbrain, suspicious brainstem or cerebellar mass. No Chiari malformation. No CP angle mass. No pituitary region mass. Ventricles: Atrophic changes. The ventricular system is midline and appropriate in size for the degree of sulcal dilatation. No hydrocephalus. Bones/joints: Unremarkable. Soft tissues: Normal. Sinuses: Normal as visualized. No acute sinusitis. Mastoid air cells: Normal as visualized. No mastoid effusion. Orbits: Unremarkable. IMPRESSION: Approximately 2 mm punctate area of restricted diffusion in the left basal ganglion region laterally. No acute cortical infarct. Multiple old lacunar infarcts. No intracranial hemorrhage. There is a background of nonspecific Flair/T2 hyperintensities within the cerebral white matter/elpidio statistically most likely on the basis of chronic small vessel ischemic change. THIS REPORT CONTAINS FINDINGS THAT MAY BE CRITICAL TO PATIENT CARE. The findings were verbally communicated via telephone conference with Dr. Gonzalez at 8:28 PM EST on 02/28/2018. The findings were acknowledged and understood. Electronically signed by: Yessica Kwok On 02/28/2018 20:34:36 PM DD: YESSICA KWOK MD 02/28/18 1608 DT: GUERLINE 02/28/182033 DS: HIMA 02/28/182033 CT ANGIO HEAD: HISTORY: Infarction. CONTRAST: Isovue-370, 100 mL COMPARISON: 05/27/2017 There is no aneurysm or arteriovenous malformation. Calcified atherosclerotic plaques are present in the cavernous internal carotid arteries and distal left vertebral artery at the C1-2 level. There is no significant stenosis. Major intracranial vessels are patent. The vertebral arteries are equal in size. IMPRESSION: 1. There is no aneurysm or arteriovenous malformation. 2. Atherosclerotic disease as described above. Electronically Signed by Raza Larios MD 03/01/2018 08:[address] ANGIO NECK: HISTORY: Infarction. CONTRAST: Isovue-370, 100 mL COMPARISON: 05/27/2017 The distal right common carotid artery and origins of the right external and internal carotid arteries are normal. A small calcified atherosclerotic plaque is present at the distal left common carotid artery. There is no significant stenosis. A small calcified atherosclerotic plaque is present in the left internal carotid artery, 9 mm from its origin. There is mild stenosis of 15% of the left internal carotid artery at this level. The origin of the left external carotid artery is normal. The vertebral arteries are equal in size and patent. A calcified atherosclerotic plaque is present in the distal left vertebral artery at the C1-2 level. There is no significant stenosis. Calcified atherosclerotic plaques are present at the origin of the left subclavian artery and in the proximal left and right subclavian arteries. There is no significant stenosis. IMPRESSION: Mild stenosis of 15% of the left internal carotid artery 9 mm from its origin. Electronically Signed by Raza Larios MD 03/01/2018 08:36 A DD: Raza Larios MD 02/28/18 1654 DT: JACOB 02/28/18 1736 DS: LYLA 03/01/18 0836 03/01/18 0836 Portable chest x-ray: Single view. History: CVA. Comparison study: October 23, 2017. Findings: EKG monitoring electrodes overlie the chest. The lungs are well inflated and clear. Pulmonary vasculature is not increased. Pleural angles are sharp. Heart size is borderline, unchanged. No significant bony abnormality. Impression: No acute disease. Electronically Signed by Jair Aguilar MD 02/28/2018 05:27 P DD: Jair Aguilar MD 02/28/18 1600 DT: JACOB 02/28/18 1631 DS: WISAM 02/28/18 1727 02/28/18 1727 ASSESSMENT AND PLAN: The patient is a 73-year-old white female with multiple chronic medical conditions and came to the hospital for evaluation of the above complaints. History was provided by herself as well as her partner with her in the emergency room (ER). Per the patient in the last 2 weeks she had three episodes of slurred speech. First of two episodes was resolved quickly so she did not seek any medical attention. Today around 2:30 p.m., again she had trouble talking and has difficulty with words. She states that she had some neck tingling, numbness in her right hand so her partner called Dr. Alvarez's office and they recommended coming to the ER for evaluation. After she came to the ER her symptoms resolved and she underwent head CT and neck CTA and both are not significant. her brain MRI is pending on admission. The medical service was called for admission. Small acute left basal ganglia lacunar ischemic stroke. History of stroke and right carotid endarterectomy in 2018. presented and c/o Expressive Aphasia, resolved MRI brain: small punctate lesion in left basal ganglia 02/28/18. neurochecks q4hrs. s/p Telemetry monitoring. Neurology consulted, Dr. Alvarez. CTA Neck: unremarkable. HTN urgency resume home meds. s/p hydralazine if remains uncontrolled, with holding parameters. on increased dose of lisinopril, hydralazine. stable for medsurg transfer Type 2 diabetes with neuropathy consistent carbs diet, insulin sliding scale with coverage, resume home meds. Restless leg syndrome with periodic limb movements of sleep on ropinorole . Dyslipidemia. check lipid profile, resume home meds Coronary artery disease/Cardiac cath in 2014, and right carotid endarterectomy in 2018. no acute ischemic symptoms. resume home meds and titrate bp meds for better c ontrol Obstructive sleep apnea on CPAP. refuses home cpap at home setting. Morbid obesity BMI 32.7 complicating care Bladder cancer with urostomy/radical cystectomy for the bladder cancer no acute symptoms or c/o hematuria Chronic diastolic congestive heart failure. appears to be euvolemic and compensated. resumed home meds. Chronic kidney disease stage 3. renally dose meds, and avoid nephrotoxics.nephrology consulted. disposition: awaiting PT/OT clearance. VS, I&O, 24H, Fishbone Vital Signs/I&O Vital Signs Date Time Temp Pulse Resp B/P (MAP) Pulse Ox O2 Delivery O2 Flow Rate FiO2 03/03/18 16:42 173/75 03/03/18 16:00 98.7 72 18 92 Nasal Cannula 1.0 I&O- Last 24 Hours up to 6 AM 03/03/18 06:00 Intake Total 3060 ml Output Total 2775 ml Balance 285 ml Laboratory Data 24H LABS Laboratory Tests 2 03/02/18 17:02: Bedside Glucose (Misc Panel) 261H 03/02/18 20:58: Bedside Glucose (Misc Panel) 214H 03/03/18 04:08: Nucleated Red Blood Cells % (auto) 0.0, Anion Gap 6L, Glomerular Filtration Rate 42.6, Blood Urea Nitrogen 24H, Creatinine 1.31H, Sodium Level 141, Potassium Level 3.9, Chloride Level 105, Carbon Dioxide Level 30, Calcium Level 8.4L 03/03/18 09:05: Bedside Glucose (Misc Panel) 173H 03/03/18 12:30: Bedside Glucose (Misc Panel) 212H CBC/BMP Laboratory Tests 03/03/18 04:08 Red Blood Count 3.23 L, Mean Corpuscular Volume 97.5 H, Mean Corpuscular Hemoglobin 31.6, Mean Corpuscular Hemoglobin Concent 32.4, Red Cell Distribution Width 12.7, Calcium Level 8.4 L BRICE ROBLES MD Mar 03, 2018 17:03
[2018-03-03] MEDS: PRAVASTATIN 20 MG TAB PO SCH (20:41)
[2018-03-03] MEDS: traZODone 100 MG TAB PO SCH (20:43)
[2018-03-03] MEDS: ACETAMINOPHEN TAB 650MG DOSE (2X325MG) PO PRN (22:37)
[2018-03-04] VITALS (8 sets, daily range): BP systolic 128–186; BP diastolic 59–79
--- NOTE | 2018-03-04 05:31 | IPN ---
DATE OF VISIT: 03/03/2018 HISTORY OF PRESENT ILLNESS: Mrs. Ng seen this morning on her bedside in the intensive care unit. She is feeling well and denies any change in her symptoms. She does have a recent neurological event with transient ischemic attack versus stroke. She is still weak and has difficulty ambulating. The nursing staff has been assisting her. The patient denies any dyspnea, chest pain, nausea or vomiting. She has a history of diastolic congestive heart failure and her torsemide was stopped yesterday due to worsening kidney function and no evidence for volume decompensation. She also had hypokalemia for which she has been receiving potassium-sparing diuretic and potassium supplement. PHYSICAL EXAMINATION: VITAL SIGNS: Temperature 98.5 degrees Fahrenheit, heart rate 64 per minute and respiratory rate 14 per minute. Blood pressure 128/63 mmHg and oxygen saturation 92% on 1 liter oxygen. HEEND: Head is atraumatic. NECK: Neck is supple and without any jugular venous distention (JVD) or thyroid enlargement. There is no oral thrush or ulcers. HEART: Heart sounds are regular. LUNGS: Clear to auscultation. ABDOMEN: Soft and nontender and without palpable organomegaly. Bowel sounds are normal. EXTREMITIES: Extremities have no cyanosis or clubbing. SKIN: Skin has no rash or ulcers. NEUROLOGIC: She is at her baseline mentation and moves all her extremities without any focal deficit. LABORATORY DATA: Today's labs show sodium 141, potassium 3.9, CO2 30, BUN 24 and creatinine 1.31. Glucose 225 and calcium 8.4. WBC 7.2, hemoglobin 10.2 and hematocrit 31.5. PROBLEMS: 1. Acute kidney injury superimposed on chronic kidney disease. Slight improvement in kidney function is noticed since yesterday. We will keep her off torsemide for now and recheck her renal function tomorrow. She is not on any nephrotoxic medications. 2. Chronic diastolic congestive heart failure. Her volume status is well-compensated and she may be slightly over diuresed. Torsemide is currently on hold and she remains on spironolactone in view of hypokalemia. Renal function and electrolytes will be checked again tomorrow morning. 3. Hypokalemia. This is a chronic issue and currently it has improved with potassium supplement and potassium-sparing diuretic. We will check her electrolytes tomorrow morning and make further adjustments as needed. She is currently on 40 mEq of potassium chloride twice a day and 50 mg of spironolactone which is stopped by the hospitalist service. We had we will recheck her tomorrow morning.
[2018-03-04] MEDS: HEPARIN SOD (PORCINE) 5000 UNITS/ML VIAL SC SCH ×3 (05:59→20:48)
[2018-03-04] MEDS: **hydrALAZINE** 10 MG TAB PO SCH ×4 (05:59→18:07)
[2018-03-04] MEDS: GABAPENTIN 100 MG CAP PO SCH ×2 (08:05→20:47)
[2018-03-04] MEDS: HumaLOG INSULIN (NovoLOG) PER UNIT SC SCH ×4 (08:05→20:49)
[2018-03-04] MEDS: glipiZIDE XL 5 MG TABCR PO SCH ×2 (08:06→20:47)
[2018-03-04] MEDS: tiZANidine 4 MG TAB PO SCH ×3 (08:06→20:48)
[2018-03-04] MEDS: POTASSIUM CHLORIDE 10 MEQ SR TABLET PO SCH (08:07)
[2018-03-04] MEDS: CLOPIDOGREL 75 MG TAB PO SCH (08:07)
[2018-03-04] MEDS: VITAMIN D 1,000 INTERNATIONAL UNITS TABLET PO SCH ×2 (08:07→20:47)
[2018-03-04] MEDS: cloNIDine 0.1 MG TAB PO SCH ×4 (08:08→20:53)
[2018-03-04] MEDS: amLODIPine 10 MG TAB PO SCH (08:09)
[2018-03-04] MEDS: ASPIRIN 81 MG ENTERIC TAB PO SCH (08:10)
[2018-03-04] MEDS: CARVedilol 3.125 MG TAB PO SCH ×2 (08:10→20:53)
[2018-03-04] MEDS: DOCUSATE SODIUM 100 MG CAP PO SCH ×2 (08:10→20:47)
[2018-03-04] MEDS: KORLYM PO SCH ×2 (08:12→20:46)
--- NOTE | 2018-03-04 08:23 | IPNPDOC ---
Date Seen The patient was seen on 03/04/18. Progress Note SUBJECTIVE: Per RN, 9am meds given at 0820am due to [id number]. beta elsa held by RN due to heart rate<60 bpm. Pt denies any headache, chest pain, tightness, sob, lightheadedness, or dizziness. no changes in vision,nausea, vomiting,epigastric pain, or blurred vision. on hydralazine and clonidine due to acute kidney injury with creatinine pending. if creatinine is improved, will resume sylvie inh and diuretics. no other issues overnight. 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 pt is left handed and will work with OT today. OBJECTIVE: PHYSICAL EXAMINATION: VITALS: PLS SEE BELOW GENERAL: She is awake, alert and oriented times three. She is not in acute distress and she is severely obese. speech is fluent. no facial asymmetry. HEENT: Atraumatic. Pupils equal, round and reactive to light. Extraocular muscles intact. No jaundice. Ears, nose and throat normal. Mouth mucosa is not dry. NECK: No JVD, no bruits. LUNGS: Clear. No wheezes and no crackles. Heart, S1 and 2 regular. No murmur. ABDOMEN: Positive bowel sounds and nontender. EXTREMITIES: No edema in bilateral lower extremities. NEUROLOGIC: decreased bulkhead carpenter left>>right. no facial asymmetry.speech is fluent. gait not tested. SKIN: No rash. PSYCHOMOTOR: No acute psychosis. LABS: REVIEWED, PLS SEE BELOW IMAGING STUDIES: EXAM: MR Head Without Contrast EXAM DATE/TIME: 02/28/2018 4:08 PM CLINICAL HISTORY: 73 years old, female; Signs and symptoms; Weakness, facial; Additional info: Expressive aphasia TECHNIQUE: MR of the head without contrast. COMPARISON: MRI-Brain without Contrast 05/25/2017 8:04 AM FINDINGS: Brain: Approximately 2 mm punctate area of restricted diffusion in the left basal ganglion region laterally, bright on B-1000 images and dark on ADC map. No acute cortical infarct. Multiple old lacunar infarcts. No abnormal magnetic susceptibility signal changes. No intracranial hemorrhage. There is a background of nonspecific Flair/T2 hyperintensities within the cerebral white matter/elpidio statistically most likely on the basis of chronic small vessel ischemic change. No thalami, midbrain, suspicious brainstem or cerebellar mass. No Chiari malformation. No CP angle mass. No pituitary region mass. Ventricles: Atrophic changes. The ventricular system is midline and appropriate in size for the degree of sulcal dilatation. No hydrocephalus. Bones/joints: Unremarkable. Soft tissues: Normal. Sinuses: Normal as visualized. No acute sinusitis. Mastoid air cells: Normal as visualized. No mastoid effusion. Orbits: Unremarkable. IMPRESSION: Approximately 2 mm punctate area of restricted diffusion in the left basal ganglion region laterally. No acute cortical infarct. Multiple old lacunar infarcts. No intracranial hemorrhage. There is a background of nonspecific Flair/T2 hyperintensities within the cerebral white matter/elpidio statistically most likely on the basis of chronic small vessel ischemic change. THIS REPORT CONTAINS FINDINGS THAT MAY BE CRITICAL TO PATIENT CARE. The findings were verbally communicated via telephone conference with Dr. Gonzalez at 8:28 PM EST on 02/28/2018. The findings were acknowledged and understood. Electronically signed by: Yessica Kwok On 02/28/2018 20:34:36 PM DD: YESSICA KWOK MD 02/28/18 1608 DT: GUERLINE 02/28/182033 DS: HIMA 02/28/182033 CT ANGIO HEAD: HISTORY: Infarction. CONTRAST: Isovue-370, 100 mL COMPARISON: 05/27/2017 There is no aneurysm or arteriovenous malformation. Calcified atherosclerotic plaques are present in the cavernous internal carotid arteries and distal left vertebral artery at the C1-2 level. There is no significant stenosis. Major intracranial vessels are patent. The vertebral arteries are equal in size. IMPRESSION: 1. There is no aneurysm or arteriovenous malformation. 2. Atherosclerotic disease as described above. Electronically Signed by Raza Larios MD 03/01/2018 08:[address] ANGIO NECK: HISTORY: Infarction. CONTRAST: Isovue-370, 100 mL COMPARISON: 05/27/2017 The distal right common carotid artery and origins of the right external and internal carotid arteries are normal. A small calcified atherosclerotic plaque is present at the distal left common carotid artery. There is no significant stenosis. A small calcified atherosclerotic plaque is present in the left internal carotid artery, 9 mm from its origin. There is mild stenosis of 15% of the left internal carotid artery at this level. The origin of the left external carotid artery is normal. The vertebral arteries are equal in size and patent. A calcified atherosclerotic plaque is present in the distal left vertebral artery at the C1-2 level. There is no significant stenosis. Calcified atherosclerotic plaques are present at the origin of the left subclavian artery and in the proximal left and right subclavian arteries. There is no significant stenosis. IMPRESSION: Mild stenosis of 15% of the left internal carotid artery 9 mm from its origin. Electronically Signed by Raza Larios MD 03/01/2018 08:36 A DD: Raza Larios MD 02/28/18 1654 DT: JACOB 02/28/18 1736 DS: LYLA 03/01/18 0836 03/01/18 0836 Portable chest x-ray: Single view. History: CVA. Comparison study: October 23, 2017. Findings: EKG monitoring electrodes overlie the chest. The lungs are well inflated and clear. Pulmonary vasculature is not increased. Pleural angles are sharp. Heart size is borderline, unchanged. No significant bony abnormality. Impression: No acute disease. Electronically Signed by Jair Aguilar MD 02/28/2018 05:27 P DD: Jair Aguilar MD 02/28/18 1600 DT: JACOB 02/28/18 1631 DS: WISAM 02/28/18 1727 02/28/18 1727 ASSESSMENT AND PLAN: The patient is a 73-year-old white female with multiple chronic medical conditions and came to the hospital for evaluation of the above complaints. History was provided by herself as well as her partner with her in the emergency room (ER). Per the patient in the last 2 weeks she had three episodes of slurred speech. First of two episodes was resolved quickly so she did not seek any medical attention. Today around 2:30 p.m., again she had trouble talking and has difficulty with words. She states that she had some neck tingling, numbness in her right hand so her partner called Dr. Alvarez's office and they recommended coming to the ER for evaluation. After she came to the ER her symptoms resolved and she underwent head CT and neck CTA and both are not significant. her brain MRI is pending on admission. The medical service was called for admission. Small acute left basal ganglia lacunar ischemic stroke. History of stroke and right carotid endarterectomy in 2018. presented and c/o Expressive Aphasia, resolved MRI brain: small punctate lesion in left basal ganglia 02/28/18. neurochecks q4hrs. s/p Telemetry monitoring. Neurology consulted, Dr. Ali. CTA Neck: unremarkable. HTN urgency resume home meds.on hydralazine if remains uncontrolled, with holding parameters. on clonidine hydralazine. stable for medsurg transfer Type 2 diabetes with neuropathy consistent carbs diet, insulin sliding scale with coverage, resume home meds. Restless leg syndrome with periodic limb movements of sleep on ropinorole . Dyslipidemia. check lipid profile, resume home meds Coronary artery disease/Cardiac cath in 2013, and right carotid endarterectomy in 2018. no acute ischemic symptoms. resume home meds and titrate bp meds for better control Obstructive sleep apnea on CPAP. refuses home cpap at home setting. Morbid obesity BMI 32.7 complicating care Bladder cancer with urostomy/radical cystectomy for the bladder cancer no acute symptoms or c/o hematuria Chronic diastolic congestive heart failure. appears to be euvolemic and compensated. resumed home meds. Chronic kidney disease stage 3. renally dose meds, and avoid nephrotoxics.nephrology consulted. disposition: awaiting PT/OT clearance. VS, I&O, 24H, Fishbone Vital Signs/I&O Vital Signs Date Time Temp Pulse Resp B/P (MAP) Pulse Ox O2 Delivery O2 Flow Rate FiO2 03/04/18 06:45 163/70 (101) 03/04/18 05:45 98.1 64 16 91 Nasal Cannula 1.0 I&O- Last 24 Hours up to 6 AM 03/04/18 06:00 Intake Total 2500 ml Output Total 1660 ml Balance 840 ml Laboratory Data 24H LABS Laboratory Tests 2 03/03/18 09:05: Bedside Glucose (Misc Panel) 173H 03/03/18 12:30: Bedside Glucose (Misc Panel) 212H 03/03/18 17:07: Bedside Glucose (Misc Panel) 238H 03/03/18 20:38: Bedside Glucose (Misc Panel) 315H 03/04/18 07:50: Bedside Glucose (Misc Panel) 179H BRICE ROBLES MD Mar 04, 2018 07:55
[2018-03-04 08:40] LABS: ALBUMIN 2.5 GM/DL (3.2-5.2); CALCIUM LEVEL 8.7 MG/DL (8.8-10.2); CREATININE FOR GFR 1.11 MG/DL (0.55-1.30); GLOMERULAR FILTRATION RATE 51.6 (>39); PHOSPHORUS LEVEL 2.8 MG/DL (2.5-4.9); POTASSIUM SERUM 4.2 MEQ/L (3.5-5.1)
[2018-03-04 08:40] LABS: HEMATOCRIT 35.3 % (36.0-47.0); HEMOGLOBIN 11.3 g/dl (12.0-15.5); MEAN CORPUSCULAR HEMOGLOBIN 31.7 pg (27.0-33.0); MEAN CORPUSCULAR VOLUME 99.2 fl (80.0-96.0); PLATELET COUNT, AUTOMATED 202 10^3/uL (150-450); RED BLOOD COUNT 3.56 10^6/uL (4.00-5.40); WHITE BLOOD COUNT 5.3 10^3/uL (4.0-10.0)
[2018-03-04] MEDS: LISINOPRIL 5 MG TAB PO SCH (08:58)
--- NOTE | 2018-03-04 10:55 | IPN ---
DATE OF VISIT: 03/04/2018 Ms. Ng is seen this morning on her bedside. She has been transferred to a regular medical floor and is feeling much better today. She denies any dyspnea, chest pain, nausea, or vomiting. On physical examination, temperature 97.0 degrees Fahrenheit, heart rate 65 per minute, and respiratory rate 18 per minute. Blood pressure 136/60 mmHg and oxygen saturation 96%. Head is atraumatic. Neck is supple and without jugular venous distention (JVD) or thyroid enlargement. Heart sounds are regular. Lungs sound clear to auscultation. Abdomen is soft and nontender and without a palpable organomegaly. Bowel sounds are normal. Extremities have no cyanosis or clubbing. Neurologically, she is awake, alert, and at her baseline mentation without a focal deficit. Intake and output records from yesterday showed total intake 2850 and output 1785. Her weight is still 84 kg. Today's laboratories show WBC count 5.3, hemoglobin 11.3, and hematocrit 35.3. Sodium 142, potassium 4.2, CO2 29, BUN 90, and creatinine 1.11. PROBLEMS: 1. Acute renal failure superimposed on chronic kidney disease. Kidney function has improved back to baseline. She has been off of diuretic for the last couple of days. Her volume status is still compensated, so I am not going to put her back on torsemide as yet. She continues with spironolactone. 2. Diastolic congestive heart failure. As stated above, volume status remains well-compensated. She will continue with spironolactone 50 mg twice a day, and torsemide is still on hold. 3. Hypokalemia. Potassium level has corrected completely, and I am going to stop her potassium chloride supplement due to risk of hyperkalemia as she is already on potassium-sparing diuretic, and her torsemide is still on hold. Once we decide to resume torsemide, then we can also resume potassium supplement. 4. Hypertension. Blood pressure seems reasonably well-controlled on current antihypertensive medications, and no changes are being made today.
[2018-03-04] MEDS: rOPINIRole 0.25 MG TAB(REQUIP) PO SCH ×2 (12:01→20:46)
[2018-03-04] MEDS: traZODone 100 MG TAB PO SCH (20:47)
[2018-03-04] MEDS: PRAVASTATIN 20 MG TAB PO SCH (20:48)
[2018-03-05] VITALS (9 sets, daily range): BP systolic 98–164; BP diastolic 53–80
[2018-03-05] MEDS: **hydrALAZINE** 10 MG TAB PO SCH ×5 (00:30→23:50)
[2018-03-05] MEDS: HEPARIN SOD (PORCINE) 5000 UNITS/ML VIAL SC SCH ×3 (06:08→20:57)
[2018-03-05 08:29] LABS: CALCIUM LEVEL 8.3 MG/DL (8.8-10.2); CREATININE FOR GFR 1.09 MG/DL (0.55-1.30); GLOMERULAR FILTRATION RATE 52.7 (>39); POTASSIUM SERUM 4.2 MEQ/L (3.5-5.1)
[2018-03-05] MEDS: HumaLOG INSULIN (NovoLOG) PER UNIT SC SCH ×4 (08:31→20:57)
[2018-03-05] MEDS: VITAMIN D 1,000 INTERNATIONAL UNITS TABLET PO SCH ×2 (08:32→20:55)
[2018-03-05] MEDS: LISINOPRIL 5 MG TAB PO SCH (08:32)
[2018-03-05] MEDS: glipiZIDE XL 5 MG TABCR PO SCH ×2 (08:32→20:55)
[2018-03-05] MEDS: tiZANidine 4 MG TAB PO SCH ×3 (08:32→20:55)
[2018-03-05] MEDS: CARVedilol 3.125 MG TAB PO SCH ×2 (08:33→20:56)
[2018-03-05] MEDS: cloNIDine 0.1 MG TAB PO SCH ×2 (08:33→20:56)
[2018-03-05] MEDS: ASPIRIN 81 MG ENTERIC TAB PO SCH (08:33)
[2018-03-05] MEDS: CLOPIDOGREL 75 MG TAB PO SCH (08:33)
[2018-03-05] MEDS: DOCUSATE SODIUM 100 MG CAP PO SCH ×2 (08:33→20:56)
[2018-03-05] MEDS: amLODIPine 10 MG TAB PO SCH (08:33)
[2018-03-05] MEDS: KORLYM PO SCH ×2 (08:34→20:57)
[2018-03-05] MEDS: GABAPENTIN 100 MG CAP PO SCH ×2 (08:34→20:55)
--- NOTE | 2018-03-05 12:28 | IPN ---
DATE: 03/05/2018 Yolanda was seen on 4 gamez while rounding for the hospitalist. She feels well. No headache, chest pain, shortness of breath. Blood pressure is labile, 160/75 this morning, 98/53 2 hours later. PHYSICAL EXAM: 98/53. Lungs: Clear. Heart: Regular rate and rhythm. Abdomen: Soft, nontender. No peripheral edema. LABS: Sodium 142, potassium 4.2, BUN 15, creatinine 1.0, glucose 188. IMPRESSION: 1. Acute renal failure. This has resolved. Appreciate nephrology's input. 2. Diastolic congestive heart failure. She seems compensated. She is on spironolactone. Torsemide is still on hold. 3. Hypertension. Her blood pressure is labile. It was hypotensive this morning. I am reducing the dose of her Catapres. 4. Stroke, left basal ganglia. Neurology has been consulted. CT angiogram of the carotids was unremarkable. On aspirin. Two hypertensive urgencies. At this point, she is now hypotensive. We will reduce her clonidine dose. 5. Diabetes with nephropathy. She is on a sliding scale of insulin currently as well as oral agent. 6. Hyperlipidemia. Continue statin therapy.
[2018-03-05] MEDS: rOPINIRole 0.25 MG TAB(REQUIP) PO SCH ×2 (12:44→20:55)
[2018-03-05] MEDS: PRAVASTATIN 20 MG TAB PO SCH (20:56)
[2018-03-05] MEDS: traZODone 100 MG TAB PO SCH (20:57)
[2018-03-06] VITALS (8 sets, daily range): BP systolic 110–174; BP diastolic 58–82
[2018-03-06] MEDS: HEPARIN SOD (PORCINE) 5000 UNITS/ML VIAL SC SCH ×3 (06:00→21:54)
[2018-03-06] MEDS: **hydrALAZINE** 10 MG TAB PO SCH ×3 (06:16→17:46)
--- NOTE | 2018-03-06 06:19 | IPN ---
DATE OF VISIT: 03/05/2018 Ms. Ng is seen this morning on her bedside. She is sitting in the chair eating breakfast at the time of my visit. She denies any dyspnea, chest pain, leg edema, nausea, or vomiting. On physical examination, temperature 98.6 degrees Fahrenheit, heart rate 64 per minute and respiratory rate 18 per minute. Blood pressure 140/64 mmHg and oxygen saturation 96%. Head is atraumatic. Neck is supple and jugular venous distention (JVD) is are not visible sitting upright. Lungs sound clear to auscultation and heart sounds are regular. Abdomen: Soft, obese and nontender. Extremities without any leg edema. Today's labs show BUN 17 and creatinine 1.09. Electrolytes are all within normal range. PROBLEMS: 1. Acute renal failure superimposed on chronic kidney disease. Her kidney function has improved and she has been off torsemide for the last several days. 2. Congestive heart failure. She does have a history of diastolic congestive heart failure and was on spironolactone and torsemide. I felt that she got over diuresed and dehydrated which caused acute kidney injury. Now she has been off torsemide and we will resume it only if needed. She will continue with spironolactone which is keeping her potassium within normal range. She is not getting any potassium supplement now. 3. Hypertension. Her blood pressure is slightly on the high side at times, but most of the time it is well controlled. Her diuretic has been stopped and it is possible that we may have to make adjustment in her antihypertensive meds. She is on minimal dose of lisinopril now, which can be increased to 10 mg daily. From a renal standpoint, the patient is doing very well and I am going to sign off. Please do not hesitate to call me back should you need any further assistance.
[2018-03-06] MEDS: LISINOPRIL 5 MG TAB PO SCH (07:52)
[2018-03-06] MEDS: CARVedilol 3.125 MG TAB PO SCH ×2 (07:53→21:52)
[2018-03-06] MEDS: CLOPIDOGREL 75 MG TAB PO SCH (07:53)
[2018-03-06] MEDS: DOCUSATE SODIUM 100 MG CAP PO SCH ×2 (07:53→21:50)
[2018-03-06] MEDS: cloNIDine 0.1 MG TAB PO SCH ×2 (07:53→21:51)
[2018-03-06] MEDS: ASPIRIN 81 MG ENTERIC TAB PO SCH (07:53)
[2018-03-06] MEDS: tiZANidine 4 MG TAB PO SCH ×3 (07:53→21:53)
[2018-03-06] MEDS: VITAMIN D 1,000 INTERNATIONAL UNITS TABLET PO SCH ×2 (07:54→21:54)
[2018-03-06] MEDS: GABAPENTIN 100 MG CAP PO SCH ×2 (07:54→21:50)
[2018-03-06] MEDS: amLODIPine 10 MG TAB PO SCH (07:54)
[2018-03-06] MEDS: KORLYM PO SCH ×2 (07:54→22:07)
[2018-03-06] MEDS: HumaLOG INSULIN (NovoLOG) PER UNIT SC SCH ×5 (07:55→21:58)
[2018-03-06] MEDS: glipiZIDE XL 5 MG TABCR PO SCH ×2 (10:44→21:54)
[2018-03-06] MEDS: rOPINIRole 0.25 MG TAB(REQUIP) PO SCH ×2 (12:48→21:50)
--- NOTE | 2018-03-06 13:44 | IPN ---
DATE: 03/06/2018 Yolanda was seen on [address] [facility]. Renal function has improved. Her blood pressure has remained under fairly good control. She seems better compensated as far as her heart failure. 135/60, pulse 58, respiratory rate 18, 96% oxygen saturation. General appearance: Resting comfortably in no distress. Left facial droop and weakness. Lungs are clear. Heart regular rate and rhythm. Abdomen soft, nontender. No peripheral edema. IMPRESSION: 1. Acute renal failure. Renal function is back to baseline. 2. Diastolic congestive heart failure. Seems better compensated. Torsemide is still on hold. 3. Hypertension. Blood pressure is labile. I reduced the Catapres yesterday. 4. Basal ganglia stroke. Continue aspirin. 5. Hypertensive urgency. Blood pressures have been vacillating and I reduced her clonidine yesterday. 6. Diabetes/nephropathy. Sliding scale insulin and oral agent. 7. Hyperlipidemia. Continue statin therapy. I hope to discharge her tomorrow if she passes her home safety evaluation.
[2018-03-06] MEDS: ACETAMINOPHEN TAB 650MG DOSE (2X325MG) PO PRN (16:27)
[2018-03-06] MEDS: traZODone 100 MG TAB PO SCH (21:50)
[2018-03-06] MEDS: PRAVASTATIN 20 MG TAB PO SCH (21:50)
[2018-03-07] MEDS: **hydrALAZINE** 10 MG TAB PO SCH ×3 (00:01→12:36)
[2018-03-07 02:00] VITALS: BP 148/71
[2018-03-07 06:00] VITALS: BP 153/83
[2018-03-07] MEDS: HEPARIN SOD (PORCINE) 5000 UNITS/ML VIAL SC SCH (06:03)
[2018-03-07 06:07] LABS: HEMATOCRIT 30.7 % (36.0-47.0); HEMOGLOBIN 9.9 g/dl (12.0-15.5); MEAN CORPUSCULAR HEMOGLOBIN 31.3 pg (27.0-33.0); MEAN CORPUSCULAR HGB CONC 32.2 g/dl (32.0-36.5); MEAN CORPUSCULAR VOLUME 97.2 fl (80.0-96.0); PLATELET COUNT, AUTOMATED 194 10^3/uL (150-450); RED BLOOD COUNT 3.16 10^6/uL (4.00-5.40); WHITE BLOOD COUNT 4.4 10^3/uL (4.0-10.0)
[2018-03-07 06:28] LABS: CALCIUM LEVEL 8.5 MG/DL (8.8-10.2); CREATININE FOR GFR 1.14 MG/DL (0.55-1.30); POTASSIUM SERUM 3.8 MEQ/L (3.5-5.1)
[2018-03-07 08:21] VITALS: BP_DIAS 84
[2018-03-07] MEDS: CLOPIDOGREL 75 MG TAB PO SCH (08:21)
[2018-03-07] MEDS: LISINOPRIL 5 MG TAB PO SCH (08:21)
[2018-03-07] MEDS: tiZANidine 4 MG TAB PO SCH (08:22)
[2018-03-07] MEDS: CARVedilol 3.125 MG TAB PO SCH (08:22)
[2018-03-07] MEDS: VITAMIN D 1,000 INTERNATIONAL UNITS TABLET PO SCH (08:22)
[2018-03-07] MEDS: cloNIDine 0.1 MG TAB PO SCH (08:22)
[2018-03-07] MEDS: DOCUSATE SODIUM 100 MG CAP PO SCH (08:22)
[2018-03-07] MEDS: GABAPENTIN 100 MG CAP PO SCH (08:22)
[2018-03-07] MEDS: glipiZIDE XL 5 MG TABCR PO SCH (08:23)
[2018-03-07] MEDS: ASPIRIN 81 MG ENTERIC TAB PO SCH (08:23)
[2018-03-07] MEDS: amLODIPine 10 MG TAB PO SCH (08:23)
[2018-03-07] MEDS: KORLYM PO SCH (08:24)
[2018-03-07] MEDS: HumaLOG INSULIN (NovoLOG) PER UNIT SC SCH (08:24)
[2018-03-07 10:00] VITALS: BP 133/63
[2018-03-07] MEDS ORDERED: CLONI1TA PO (10:26)
[2018-03-07] MEDS ORDERED: HYDR10TAB PO (10:26)
[2018-03-07] MEDS ORDERED: TRAZ10TA PO (10:26)
--- NOTE | 2018-03-07 11:48 | DSES ---
DATE OF ADMISSION: 03/01/2018 DATE OF DISCHARGE: DATE OF DICTATION: 03/07/2018 PRIMARY CARE PROVIDER: Dr. Randell Dove CONSULTANTS: Dr. Grey of nephrology. Dr. Alvarez of neurology. PRINCIPAL DIAGNOSIS: Left basal ganglia stroke. SECONDARY DIAGNOSES: 1. Hypertensive urgency. 2. Acute renal failure. 3. Diastolic congestive heart failure (CHF). 4. Hypertensive heart disease. 5. Diabetic nephropathy. 6. Hyperlipidemia. HISTORY: Yolanda Ng was admitted with slurred speech and found to have a stroke. Details of the history and physical as per admission. HOSPITAL COURSE: The patient was admitted to a monitored bed. She was seen by neurology. She had a CT angiogram of the head that did not show any significant carotid stenosis. MRI of the brain is summarized above. Her renal function improved with hydration. Her blood pressure came under good control. Her diabetes was controlled with insulin on sliding scale, as well as glipizide, which she used as an outpatient. On the day of discharge, she has been cleared by physical therapy (PT). Her blood pressure is under good control. She has persistent neurologic deficits, but feels ready for discharge. SIGNIFICANT LABORATORIES: White count 4.4, hemoglobin 9.9, platelets 194. Sodium 142, potassium 3.8, BUN 16, creatinine 1.1, glucose 231. TSH is minimally elevated at 7.1. Lipids show good control. Cholesterol 158, LDL 81, HDL 30. Troponins were flat. DISPOSITION: The patient is discharged home in improved and stable condition. She will followup with Dr. Dove in 1 week. DISCHARGE MEDICATIONS: - amlodipine 10 mg daily (previously was taking 10 mg in the morning and 5 mg extra every 2 days and this has been simplified to 10 mg daily) - aspirin 81 mg daily - Basaglar 20 units daily - carvedilol 3.125 mg twice a day - Plavix 75 mg daily - gabapentin 100 mg twice a day - glipizide XL 10 mg twice a day - 300 mg twice a day - lisinopril 10 mg daily - potassium chloride 40 mEq twice a day - metformin 1000 mg twice a day - pravastatin 40 mg daily - ropinirole 0.5 mg daily - spironolactone 50 mg twice a day - tizanidine 2 mg three times a day - torsemide 20 mg daily - vitamin D 2000 units daily New prescription for: - trazodone 100 mg at night - hydralazine 30 mg every 6 hours - clonidine 0.1 mg twice a day (my expectation is that she will be weaned off the hydralazine as an outpatient as this is not really an optimal medication for long-term blood pressure control. Hopefully she can wean off the Catapres as well due to the fairly high side effect profile associated with this, we will defer to Dr. Dove to wean her off these short-term medicines currently being used for control of her blood pressure after hypertensive emergency). Activities as tolerated. She has a no added salt diet. She will followup with Dr. Dove in 1 week. At the time of his dictation, there are no pending laboratories. I called Dr. Randell Dove's office to give a sign out on the patient's discharge, unfortunately they are closed for bad weather today and there was not an answering service to forward requests for a call back.
[2018-03-07 12:36] VITALS: BP_SYST 138
== END 2018-03-07 13:13 | disposition home health service (06) | DRG 65 ==
LOC: M ED 14:53 → M ED INP 17:38 → M ICU 03-01 10:09 → OBSVTOIN 03-01 13:17 → M MS4PR 03-04 08:36 → M MSPAV 03-06 14:52
PROVIDERS: ADMIT Hospitalist; ATTEND Family Medicine
DX: I63.59 Cerebral infarction due to unspecified occlusion or stenosis of other cerebral artery (principal); I50.32 Chronic diastolic (congestive) heart failure; I13.0 Hypertensive heart and chronic kidney disease with heart failure and stage 1 through stage 4 chronic kidney disease, or unspecified chronic kidney disease; N17.9 Acute kidney failure, unspecified; R47.01 Aphasia; E11.22 Type 2 diabetes mellitus with diabetic chronic kidney disease; E78.5 Hyperlipidemia, unspecified; I25.10 Atherosclerotic heart disease of native coronary artery without angina pectoris; G47.33 Obstructive sleep apnea (adult) (pediatric); E66.01 Morbid (severe) obesity due to excess calories; N18.3 Chronic kidney disease, stage 3 (moderate); Z85.51 Personal history of malignant neoplasm of bladder; Z93.6 Other artificial openings of urinary tract status; Z68.32 Body mass index [BMI] 32.0-32.9, adult; I16.0 Hypertensive urgency; E11.21 Type 2 diabetes mellitus with diabetic nephropathy; E87.6 Hypokalemia; E11.40 Type 2 diabetes mellitus with diabetic neuropathy, unspecified; G25.81 Restless legs syndrome; G47.61 Periodic limb movement disorder; Z87.891 Personal history of nicotine dependence; Z79.82 Long term (current) use of aspirin; Z79.4 Long term (current) use of insulin; Z79.02 Long term (current) use of antithrombotics/antiplatelets; Z79.899 Other long term (current) drug therapy

== ENCOUNTER → 2018-03-14 | Outpatient (CLI) | payer MEDICARE ==
[~2018-03-14] MED LIST changes: +CLONI1TA PO; +HYDR10TAB PO; +ROPI0.5T PO; +SPIR50TA4 PO; +TORS20TA2 PO; +TRAZ10TA PO
--- NOTE | 2018-03-15 04:05 | REP ---
Clinical: Carotid stenosis. Technique: Barrera scale and color Doppler evaluation using linear high frequency transducer Findings: Two-dimensional barrera scale and color images demonstrate mixed atheromatous plaquing with laminar flow and no significant stenosis or occlusion. Color Doppler interrogation demonstrates normal arterial wave patterns and velocities with no significant spectral broadening. Normal flow direction is appreciated in the bilateral vertebral arteries. RIGHT (cm/s) LEFT (cm/s) ICA peak systolic velocity 102.9 68.2 ICA diastolic velocity 33.0 17.3 ECA peak systolic velocity 139.1 87.2 CCA peak systolic velocity 81.3 78.2 ICA/CCA ratio 1.3 0.9 Impression: No hemodynamically significant areas of narrowing or stenosis appreciated. Based on set standards narrowing falls within the less than 50% range. Electronically Signed by Maxx Oliveira MD 03/15/2018 03:57 A
== END ==
LOC: M RAD 13:50
PROVIDERS: ATTEND Surgery Vascular Surgery
DX: I65.23 Occlusion and stenosis of bilateral carotid arteries (principal)

== ENCOUNTER 2018-04-02 07:28 | Inpatient (IN) | payer MEDICARE ==
[~2018-04-02] VITALS: Ht 157.5 cm; Wt 85.1 kg
[2018-04-02] MEDS ORDERED: BUME1TAB3 (07:43)
[2018-04-02 08:08] LABS: VENOUS BASE EXCESS 5.2 (-2.0-2.0); VENOUS HCO3 30.2 MEQ/L (23.0-27.0); VENOUS O2 SATURATION 95.9 % (60.0-80.0); VENOUS PARTIAL PRESSURE CO2 46.4 mmHg (38.0-50.0); VENOUS PARTIAL PRESSURE O2 82.2 mmHg (30.0-50.0); VENOUS PH 7.431 UNITS (7.330-7.430); VENOUS STANDARD HCO3 29.1 MEQ/L; VENOUS TOTAL CO2 31.6 MEQ/L (24.0-28.0)
[2018-04-02 08:19] LABS: BASO % 0.4 % (0.0-1.0); EOS # 0.1 10^3/uL (0.0-0.50); EOS % 0.6 % (0.0-3.0); HEMATOCRIT 30.6 % (36.0-47.0); HEMOGLOBIN 9.7 g/dl (12.0-15.5); LYMPH # 1.2 10^3/uL (1.5-4.5); LYMPH % 15.1 % (24.0-44.0); MEAN CORPUSCULAR HEMOGLOBIN 30.8 pg (27.0-33.0); MEAN CORPUSCULAR HGB CONC 31.7 g/dl (32.0-36.5); MEAN CORPUSCULAR VOLUME 97.1 fl (80.0-96.0); MONO # 0.9 10^3/uL (0.0-0.8); MONO % 10.8 % (0.0-5.0); NEUTROPHILS # 5.7 10^3/uL (1.8-7.7); NEUTROPHILS % 72.1 % (36.0-66.0); PLATELET COUNT, AUTOMATED 200 10^3/uL (150-450); RED BLOOD COUNT 3.15 10^6/uL (4.00-5.40); WHITE BLOOD COUNT 7.9 10^3/uL (4.0-10.0)
[2018-04-02 08:30] LABS: INR 1.14; PROTHROMBIN TIME 14.8 SECONDS (12.1-14.4)
[2018-04-02 08:42] LABS: INFLUENZA A AMPLIFICATION NEGATIVE (NEGATIVE); INFLUENZA B AMPLIFICATION NEGATIVE (NEGATIVE)
--- NOTE | 2018-04-02 08:48 | REP ---
Portable chest x-ray: Single view. History: Dyspnea and cough. Comparison chest x-ray: February 28, 2018. Findings: EKG monitoring electrodes overlie the chest. Interstitial markings are prominent in the bases with David B lines suggesting volume overload or CHF. Heart is not felt to be enlarged however. Pulmonary vasculature does not appear to be increased. No significant bony abnormality. No focal infiltrate. Impression: Diffuse interstitial edema pattern. Electronically Signed by Jair Aguilar MD 04/02/2018 08:39 A
[2018-04-02 08:51] LABS: ALT/SGPT 15 U/L (12-78); BILIRUBIN,DIRECT 0.2 MG/DL (0.0-0.2); BILIRUBIN,TOTAL 0.6 MG/DL (0.2-1.0); BLOOD UREA NITROGEN 18 MG/DL (7-18); CALCIUM LEVEL 7.9 MG/DL (8.8-10.2); CARBON DIOXIDE LEVEL 31 MEQ/L (21-32); CHLORIDE LEVEL 102 MEQ/L (98-107); CPK CREATINE PHOSPHOKINASE 92 U/L (26-192); CREATININE FOR GFR 1.15 MG/DL (0.55-1.30); GLOMERULAR FILTRATION RATE 49.5 (>39); GLUCOSE, FASTING 223 MG/DL (70-100); MB/CK RELATIVE INDEX 1.41 (< OR =4); NT-PRO BNP 413 PG/ML (<125); POTASSIUM SERUM 3.2 MEQ/L (3.5-5.1); SODIUM LEVEL 141 MEQ/L (136-145); TOTAL PROTEIN 6.5 GM/DL (6.4-8.2); TROPONIN I < 0.02 NG/ML (< 0.10)
[2018-04-02] MEDS: SPIRONOLACTONE 50 MG TAB PO SCH ×2 (09:00→17:43)
[2018-04-02] MEDS ORDERED: FUROSEMIDE 100 MG/10 ML VIAL (J1940) IV ONE (09:15)
[2018-04-02] MEDS ORDERED: MAGN500T2 PO (09:26)
[2018-04-02] MEDS ORDERED: HYDR10TAB PO (09:26)
[2018-04-02] MEDS ORDERED: TRAZ-189 PO (09:26)
[2018-04-02] MEDS ORDERED: KLOR20TA42 PO (09:26)
[2018-04-02] MEDS ORDERED: LISI-672 PO (09:26)
[2018-04-02] MEDS ORDERED: TIZA2TA PO (09:26)
[2018-04-02] MEDS ORDERED: CLON-412 PO (09:26)
[2018-04-02] MEDS ORDERED: POTASSIUM CHLORIDE 10 MEQ SR TABLET PO ONE ×2 (09:30→11:00)
[2018-04-02 09:48] LABS: FREE T4 0.75 NG/DL (0.76-1.46)
[2018-04-02] MEDS ORDERED: GLUCOSE 4 GM CHEW TABLET PO PRN (10:00)
[2018-04-02] MEDS ORDERED: GLUCAGON FOR INJ 1 MG VIAL (J1610) SC PRN (10:00)
[2018-04-02] MEDS ORDERED: DEXTROSE 50% 50 ML SYRINGE IV PRN (10:00)
[2018-04-02] MEDS ORDERED: ISOVUE-370 76% 100ML VIAL (Q9967) As Ordered ONE (10:02)
--- NOTE | 2018-04-02 11:09 | REP ---
Clinical: Acute respiratory distress. Technique: Axial contrast enhanced images from the thoracic inlet to the upper abdomen with coronal and sagittal re-formations using 100 ml Isovue 370 intravenous contrast material. Comparison: 10/21/2017. Findings: Left lower lobe, right lower lobe, and lingular consolidation/atelectasis with small pleural reactions are identified along with scattered mid to lower lobe ground-glass opacities and alveolar infiltrates. Reactive adenopathy within the mediastinum and bilateral rima noted. No pneumothorax. Atherosclerotic changes to the thoracic aorta and coronary arteries noted without aortic aneurysm, cardiomegaly, or pericardial effusion. Surrounding musculoskeletal structures are intact. Limited upper abdomen demonstrates presumed hyperplastic changes to the bilateral adrenal glands evidence for cholelithiasis. Impression: 1. Pulmonary opacities along with small pleural reactions and reactive adenopathy. Differential diagnosis includes early pulmonary edema as well as multifocal pneumonia and correlation is required. These findings appear less pronounced but similar to prior examination dated 10/21/2017. 2. Stable hyperplastic changes to the bilateral adrenal glands. 3. Cholelithiasis. Electronically Signed by Maxx Oliveira MD 04/02/2018 11:01 A
[2018-04-02 14:01] VITALS: BP 170/60
[2018-04-02] MEDS: CLOPIDOGREL 75 MG TAB PO SCH (14:35)
[2018-04-02] MEDS: cloNIDine 0.1 MG TAB PO SCH ×2 (14:36→20:48)
[2018-04-02] MEDS: MAGNESIUM OXIDE 400 MG TAB (MAG-OX) PO SCH ×2 (14:36→20:47)
[2018-04-02] MEDS: CARVedilol 3.125 MG TAB PO SCH ×2 (14:37→20:47)
[2018-04-02] MEDS: ASPIRIN 81 MG CHEW TABLET PO SCH (14:37)
[2018-04-02] MEDS: ACETAMINOPHEN TAB 650MG DOSE (2X325MG) PO PRN (14:39)
[2018-04-02] MEDS: LISINOPRIL 10 MG TAB PO SCH (14:39)
[2018-04-02] MEDS: **hydrALAZINE** 10 MG TAB PO SCH ×2 (14:40→20:48)
[2018-04-02] MEDS: HumaLOG INSULIN (NovoLOG) PER UNIT SC SCH ×3 (14:40→20:35)
[2018-04-02] MEDS: KCL 10MEQ/100ML SWI (KRUN) 10 MEQ in APPROPRIATE DILUENT 1 EA IV SCH ×2 (14:41→16:38)
[2018-04-02] MEDS: HEPARIN SOD (PORCINE) 5000 UNITS/ML VIAL SC SCH ×2 (14:41→20:49)
[2018-04-02] MEDS: VITAMIN D 1,000 INTERNATIONAL UNITS TABLET PO SCH ×2 (14:43→20:49)
[2018-04-02 15:26] LABS: C REACTIVE PROTEIN QUANTITATIV 0.96 MG/DL (0.00-0.30)
--- NOTE | 2018-04-02 15:57 | HPE ---
DATE OF ADMISSION: 04/02/2018 PRIMARY CARE PHYSICIAN: Dr. Randell Dove SOFTWARE PACKAGER: Dr. Grey, Senior RN MDS: Dr. Michell Matos NEUROLOGIST: Dr. Alvarez COMPRESSOR OPERATOR PORTABLE: Dr. Florez CHIEF COMPLAINT: Shortness of breath. HISTORY OF PRESENT ILLNESS: Ms. Ng is a 73-year-old female with relevant past medical history of diastolic congestive heart failure (CHF) who presents to the emergency room (ER) with shortness of breath that started suddenly yesterday night while she was sitting. She states this feels similar to an episode she had years ago where she was diagnosed with CHF. She also admits to increased swelling of lower legs as well as chills, wheezing, and a dry cough. She states that she has been to her traffic director for the fluid status concern, and she was recently increased on her torsemide, and other diuretics were also readjusted; however, she did not improve much with her breathing and leg swelling and thus comes into the ER today with her . In the ER she was noted to be hypoxic, saturating in the mid 80s on room air and requiring 5 liters of nasal cannula. Chest x-ray reveals diffuse interstitial edema, and she will be admitted for her continued hypoxia and shortness of breath. REVIEW OF SYSTEMS: Denies any fevers. Admits to chills. Denies night sweats or weight loss. HEENT: Denies any headache, blurred vision, eye pain, ear pain, dysphagia. CARDIAC: Denies chest pain, palpitations. Admits to increasing peripheral edema. LUNGS: Admits to dry cough, subjective wheezing, and shortness of breath. Denies any sputum production. GASTROINTESTINAL: Denies any nausea, vomiting, abdominal pain, changes in bowel habits, or blood loss. GENITOURINARY: Admits to a history of bladder cancer, for which she has a chronic urostomy. SKIN: Denies any rashes. MUSCULOSKELETAL: Denies any new aches. NEUROLOGIC: Denies any new parenthesis. PAST MEDICAL HISTORY: 1. Chronic diastolic CHF. 2. Chronic kidney disease (CKD), stage III. 3. Insulin-dependent diabetes mellitus (IDDM) 2. 4. Hypertension. 5. Hyperlipidemia. 6. Coronary artery disease. 7. History of transient ischemic attacks (TIA). 8. Obstructive sleep apnea (ALEX), on continuous positive airway pressure (CPAP). 9. Obesity hypoventilation syndrome. 10. Morbid obesity. 11. History of bladder cancer status post radical cystectomy and urostomy. HOME MEDICATIONS: - aspirin 81 mg - Basaglar 20 units subcutaneous at bedtime - Coreg 3.125 mg by mouth twice a day - clonidine 01 mg by mouth twice a day - Plavix 75 mg by mouth daily - glipizide 10 mg by mouth twice a day - hydralazine 30 mg by mouth twice a day - NovoLog sliding scale. - Korlym 300 mg by mouth twice a day - lisinopril 30 mg by mouth daily - magnesium 500 mg by mouth twice a day - metformin 1000 mg by mouth twice a day - potassium chloride 40 mEq by mouth twice a day - pravastatin 40 mg by mouth at bedtime - ropinirole 1 mg by mouth at bedtime - spironolactone 50 mg by mouth twice a day - tizanidine 2 mg by mouth daily as needed - torsemide 20 mg by mouth twice a day - trazodone 100 mg by mouth at bedtime - vitamin D 2000 units by mouth twice a day ALLERGIES: None. FAMILY HISTORY: Father had exposure to [place]. Mother had diabetes mellitus. PAST SURGICAL HISTORY: 1. Transurethral resection of bladder tumor in 2015. 2. Radical cystectomy January 2016. 3. Total abdominal hysterectomy January 2016. 4. Right carotid endarterectomy and cardiac catheterization in 2013. SOCIAL HISTORY: Remote history of smoking. Quit in 1995. Smoked for 10 years. Alcohol: Denies. Illicit substance: Denies. Lives at home with her and one dog. PHYSICAL EXAMINATION: VITAL SIGNS: Temperature 99.7, pulse 84, respirations 18, blood pressure (BP) 173/77 with a mean arterial pressure (MAP) of 109. Pulse oximetry initially was 85% rheumatoid arthritis and is at 87% on 5 liters nasal cannula. GENERAL: Resting comfortably in bed. No acute distress. Alert and oriented (A and O). HEENT: Normocephalic, atraumatic. Moist mucous membranes. NECK: Supple. Unable to assess jugular venous distention (JVD) given large body habitus. CARDIAC: Regular rate and rhythm. No audible murmurs, clicks, gallops. LUNGS: Equal chest rise bilaterally. There are bibasilar rales with mild wheezing in the upper oswald. No significant respirations distress; however, she is requiring supplemental oxygen. ABDOMEN: Obese, soft, nontender, nondistended. Positive bowel sounds. Has a urostomy bag with healthy stoma in place. EXTREMITIES: Pitting edema 3+, bilateral lower extremities, up the thighs and bilateral arms and also on the sacrum. Negative Homans sign. Nontender calves. SKIN: No visible lesions or ulcerations LABORATORY DATA: WBC 7.9, hemoglobin and hematocrit 9.7 and 30.6, platelets 200. Sodium 141, potassium 3.2, BUN and creatinine 18 and 1.15. Lactic acid 1.2. Liver panel negative. Cardiac markers negative. TSH 9.1 and free T4 of 0.75. ProBNP 413. ABG: A pH of 7.43, pCO2 of 46, and pO2 of 82. Influenza negative. Respiratory negative. Blood culture is pending. IMAGING: Chest x-ray reveals diffuse interstitial edema. Chest CT, which shows pulmonary opacities with small pleural reactions and reactive adenopathy. Differential includes pulmonary edema and multifocal pneumonia. Stable hyperplastic changes, bilateral adrenal glands, and cholelithiasis. ASSESSMENT AND PLAN: 1. Acute hypoxic respiratory failure, multifactorial secondary to decompensated diastolic congestive heart failure (CHF) as well as possible pneumonia. Patient at baseline is on room air; however, is requiring supplemental oxygen greater than 5 liters nasal cannula. Continue titrating oxygen to maintain levels above 92%. BNP is mildly elevated in 400s. Will hold her home torsemide and switch her to intravenous (IV) diuretics for net negative of 2 liters. Monitor strict intake and output. Elevate head of bed. Regarding her pneumonia, she is spiking temperatures of 100.8. Although she has no leukocytosis, given her imaging and clinical picture we will start her on ceftriaxone and azithromycin for treatment of community-acquired pneumonia. Blood cultures are currently pending and will try to obtain sputum culture. Trend white count. Her decompensated CHF may be secondary to her acute infection. Of note, she has been requiring adjustments in her diuretic regimen over the past 2 weeks with nephrology. A pulmonary embolism (PE) is lower on the differential. She is not tachycardic, however, is on a beta elsa at home. Given that she has already received CT contrast today and her baseline kidney disease, we will continue closely monitoring and consider a CT angiogram tomorrow after reassessing her renal function. In the meanwhile, will consider VQ scan. Also of note, her CT scan reveals some adenopathy and pulmonary opacities. Malignancy is on the differential as well. Will discuss this with the patient. She does have a remote history of tobacco use. We will consider a diagnostic thoracentesis after reassessing her effusions and if they are large enough to be drained. Her last echo was in October 2017, revealing a preserved ejection fraction (EF) 60-65% and grade 1 diastolic dysfunction along with left ventricular hypertrophy (LVH). We will repeat an echocardiogram during this admission. 2. Hypertensive urgency. Patient's blood pressure has been as high as 200s/80s in the emergency room (ER). Will continue her home regimen and gradually bring down her blood pressure with her home regimen and hold parameters. It is expected to improve along with diuresis. Home regimen of carvedilol, clonidine, hydralazine, lisinopril is continued. 3. Hypothyroidism. Patient's elevated thyroid-stimulating hormone (TSH) and low T4 on admission. It appears that she has had elevated TSH over the past couple of months, however, is not on any medications. Will likely require outpatient followup after she recovers from her acutely ill state. 4. Chronic kidney disease (CKD), stage III. She is at her baseline renal function currently with her baseline creatinine around 1.1. Continue to monitor with diuresis. 5. Insulin-dependent diabetes mellitus (IDDM) 2. Home regimen replaced with insulin sliding scale inpatient and consistent-carbohydrate diet. 6. Obstructive sleep apnea (ALEX). May use CPAP and on ALEX protocol. Also has underlying obesity hypoventilation syndrome. Obesity complicates her care. 7. History of bladder cancer, status post Transurethral resection of bladder tumor (TURBT) and radical cystectomy in January 2016. Currently has a urostomy. 8. A history of transient ischemic attacks (TIA), status post right carotid endarterectomy (CEA). 9. Coronary artery disease (CAD), status post cardiac catheterization in 2013. Continue home aspirin and statin. Patient reports she has one cardiac stent in place. Continue her home Plavix. 10. History of Dee syndrome. Continue home Korlym. Deep vein thrombosis (DVT) prophylaxis. Heparin subcutaneous. DISPOSITION: Admit to hospitalist service. Monitor in progressive care unit (PCU). My faculty preceptor for this patient encounter was physically present during the encounter and was fully available. All aspects of the patient interview, examination, medical decision making process, and medical care plan development were reviewed and approved by the faculty preceptor. The faculty preceptor is aware and concurs with the plan as stated in the body of this note and will attest to such by his/her co-signature. MAGNOLIA
[2018-04-02 16:00] VITALS: BP 140/58
[2018-04-02] MEDS ORDERED: KCL 10MEQ IN STERILE WATER 100ML As Ordered ONE (16:35)
[2018-04-02 17:09] LABS: ABG BASE EXCESS 5.5 (-2.0-2.0); ABG HCO3 29.2 MEQ/L (22.0-26.0); ABG PARTIAL PRESSURE CO2 38.8 mmHg (35.0-45.0); ABG PARTIAL PRESSURE O2 78.2 mmHg (75.0-100.0); ABG STANDARD HCO3 29.4 MEQ/L (22.0-26.0); ABG TOTAL CO2 30.4 MEQ/L (23.0-31.0); ABG pH (ARTERIAL) 7.494 UNITS (7.350-7.450)
[2018-04-02] MEDS: cefTRIAXone SOD 1 GM in D5W MINI-BAG PLUS 50 ML IV SCH (17:43)
[2018-04-02] MEDS: FUROSEMIDE 100 MG/10 ML VIAL (J1940) IV SCH (18:38)
[2018-04-02] MEDS: AZITHROMYCIN INJ 500 MG, VIAL MATE ADAPTER 1 EACH in D5W 250 ML IV SCH (18:39)
[2018-04-02 20:00] VITALS: BP 151/72
[2018-04-02] MEDS: PRAVASTATIN 20 MG TAB PO SCH (20:48)
[2018-04-02] MEDS: POTASSIUM CHLORIDE 10 MEQ SR TABLET PO SCH (20:48)
[2018-04-02] MEDS: LEVEMIR (INSULIN DETEMIR) 1 UNITS/0.01ML SC SCH (20:49)
[2018-04-02] MEDS: rOPINIRole 1MG TAB PO SCH (20:49)
--- NOTE | 2018-04-02 22:52 | ECHO ---
DATE OF PROCEDURE: 04/02/2018 Date of : 1945 Age: 73 Height: 62 inches Weight: 194 pounds Body surface area: 1.88 meters squared Inpatient: [facility], room 3211 REFERRING PHYSICIAN: Dr. Betancourt INDICATION: Dyspnea. MEASUREMENTS: 2D measurements: RV: 3.1 cm LV: 5.4 cm Septum: 1.2 cm Posterior wall: 1.2 cm Aortic root: 3.0 cm LA: 4.0 cm LVEF: 75% Doppler measurements: AV: 1.89 meters per second LVOT: 1.15 meters per second LVOT diameter: 1.8 cm MV-E: 163, A: 127, EA ratio: 1.3 Early mitral deceleration time: 211 milliseconds E prime: 6.6, A prime: 8.9, E/E prime ratio: 24.6 Pulmonary capillary wedge pressure: 28.5 mmHg PV: 0.9 meters per second Pulmonary artery acceleration time: 116 milliseconds PASP: 29 mmHg IVC: 2.0 cm COMMENTS: Normal sinus rhythm without intraventricular conduction disturbance. M-mode and two-dimensional echocardiography was performed with pulsed, continuous wave, color flow and tissue Doppler studies. Borderline concentric left ventricular hypertrophy with hyperkinetic wall motion. Mildly dilated left atrium with Doppler evidence of an impairment of left ventricular (LV) diastolic relaxation with a pseudo normalized filling pattern and significantly elevated estimated mean left atrial pressure. Normal right heart chamber sizes and motion with current estimated pulmonary arterial pressure upper limits of normal. Normal inferior vena cava (IVC) size and collapse against an elevated central venous pressure. Normal appearing and functioning aortic valve. Normal aortic root size. Mild mitral annular calcification with only trace mitral insufficiency. Normal appearing tricuspid valve, unable to detect any tricuspid insufficiency. No apparent intracardiac mass with minuscule (physiologic) posterior pericardial effusion.
[2018-04-02] MEDS: KORLYM PO SCH (23:43)
[2018-04-03] VITALS (7 sets, daily range): BP systolic 137–171; BP diastolic 63–74; PULSE 89
[2018-04-03 04:44] LABS: ABG BASE EXCESS 7.3 (-2.0-2.0); ABG O2 SATURATION 91.8 % (95.0-99.0); ABG PARTIAL PRESSURE CO2 46.4 mmHg (35.0-45.0); ABG TOTAL CO2 33.5 MEQ/L (23.0-31.0); ABG pH (ARTERIAL) 7.457 UNITS (7.350-7.450)
[2018-04-03 05:14] LABS: HEMATOCRIT 30.7 % (36.0-47.0); HEMOGLOBIN 9.5 g/dl (12.0-15.5); MEAN CORPUSCULAR HEMOGLOBIN 30.2 pg (27.0-33.0); MEAN CORPUSCULAR HGB CONC 30.9 g/dl (32.0-36.5); MEAN CORPUSCULAR VOLUME 97.5 fl (80.0-96.0); PLATELET COUNT, AUTOMATED 190 10^3/uL (150-450); RED BLOOD COUNT 3.15 10^6/uL (4.00-5.40); WHITE BLOOD COUNT 6.9 10^3/uL (4.0-10.0)
--- NOTE | 2018-04-03 05:21 | REPVR ---
EXAM: XR Chest, 1 View EXAM DATE/TIME: 04/03/2018 4:49 AM CLINICAL HISTORY: 73 years old, female; Pain; Chest pain; Type not specified; Additional info: Hypoxia and chest pain TECHNIQUE: XR of the chest, 1 view. COMPARISON: CR PORTABLE CHEST X-RAY 04/02/2018 7:57 AM FINDINGS: Tubes, catheters and devices: There is overlying EKG leads. Lungs: There is left lower lobe infiltrates. Pleural space: Unremarkable. No pleural effusion. No pneumothorax. Heart/Mediastinum: Poor inspiratory film with magnified cardiomediastinal silhouette. Bones/joints: Mild thoracic spine osteophyte seen. IMPRESSION: Left lower lobe infiltrates likely pneumonic in the right clinical setting. Followup to resolution is suggested. Electronically signed by: Alex Stevens On 04/03/2018 05:20:41 AM
[2018-04-03 05:38] LABS: ERYTHROCYTE SEDIMENTATION RATE > 140 mm/hr (0-30)
[2018-04-03 05:52] LABS: BLOOD UREA NITROGEN 16 MG/DL (7-18); CARBON DIOXIDE LEVEL 33 MEQ/L (21-32); CHLORIDE LEVEL 103 MEQ/L (98-107); CPK CREATINE PHOSPHOKINASE 319 U/L (26-192); CREATININE FOR GFR 1.16 MG/DL (0.55-1.30); GLUCOSE, FASTING 136 MG/DL (70-100); MAGNESIUM LEVEL 2.4 MG/DL (1.8-2.4); MB/CK RELATIVE INDEX 0.44 (< OR =4); POTASSIUM SERUM 3.7 MEQ/L (3.5-5.1); SODIUM LEVEL 143 MEQ/L (136-145); TROPONIN I < 0.02 NG/ML (< 0.10)
[2018-04-03] MEDS: FUROSEMIDE 100 MG/10 ML VIAL (J1940) IV SCH ×4 (06:14→17:09)
[2018-04-03] MEDS: HEPARIN SOD (PORCINE) 5000 UNITS/ML VIAL SC SCH ×3 (06:15→20:45)
[2018-04-03] MEDS ORDERED: IPRATROPIUM 0.5MG/ALBUTEROL 2.5MG INH SOL UD 3ML (DUONEB)(J7620) NEB PRN (07:00)
[2018-04-03] MEDS: VITAMIN D 1,000 INTERNATIONAL UNITS TABLET PO SCH ×2 (08:30→20:41)
[2018-04-03] MEDS: SPIRONOLACTONE 50 MG TAB PO SCH ×2 (08:30→16:08)
[2018-04-03] MEDS: POTASSIUM CHLORIDE 10 MEQ SR TABLET PO SCH ×2 (08:30→20:42)
[2018-04-03] MEDS: cloNIDine 0.1 MG TAB PO SCH ×2 (08:31→20:43)
[2018-04-03] MEDS: CLOPIDOGREL 75 MG TAB PO SCH (08:31)
[2018-04-03] MEDS: ASPIRIN 81 MG CHEW TABLET PO SCH (08:31)
[2018-04-03] MEDS: MAGNESIUM OXIDE 400 MG TAB (MAG-OX) PO SCH ×2 (08:31→20:44)
[2018-04-03] MEDS: **hydrALAZINE** 10 MG TAB PO SCH ×2 (08:31→20:43)
[2018-04-03] MEDS: CARVedilol 3.125 MG TAB PO SCH ×2 (08:32→20:43)
[2018-04-03] MEDS: LISINOPRIL 10 MG TAB PO SCH (08:32)
[2018-04-03] MEDS: HumaLOG INSULIN (NovoLOG) PER UNIT SC SCH ×4 (08:33→20:57)
[2018-04-03 08:34] LABS: C REACTIVE PROTEIN QUANTITATIV 7.85 MG/DL (0.00-0.30); NT-PRO BNP 552 PG/ML (<125)
[2018-04-03] MEDS ORDERED: ISOVUE-370 76% 100ML VIAL (Q9967) As Ordered ONE (09:49)
--- NOTE | 2018-04-03 12:10 | REP ---
Clinical: Acute respiratory distress. Comparison: 04/02/2018 Technique: Axial contrast enhanced images from the thoracic inlet to the upper abdomen using 100 ml Isovue 370 intravenous contrast material with coronal and sagittal re-formations. Findings: Satisfactory enhancement of the pulmonary vasculature is achieved and no filling defects are identified to suggest pulmonary embolus. Thoracic aorta is normal caliber without aneurysm or dissection. The heart is upper limits of normal and atherosclerotic changes to the coronary arteries noted. Lung oswald demonstrate small bilateral pleural effusions which have increased from prior examination along with continued evidence for perihilar and lower lobe ground-glass opacities and bibasilar atelectasis. Tracheobronchial tree is patent. Surrounding musculoskeletal structures are stable. Limited upper abdomen remains unchanged. Impression: No evidence for pulmonary embolus. Small increased pleural effusions along with ground-glass opacities and bibasilar atelectasis. Differential diagnosis again includes early pulmonary edema and less likely multifocal pneumonia/pneumonitis. Electronically Signed by Maxx Oliveira MD 04/03/2018 12:01 P
[2018-04-03] MEDS: KORLYM PO SCH ×2 (12:46→20:44)
[2018-04-03] MEDS: cefTRIAXone SOD 1 GM in D5W MINI-BAG PLUS 50 ML IV SCH (16:07)
[2018-04-03] MEDS: METOCLOPRAMIDE INJ 10MG/2ML VIAL (J2765) IV PRN (16:08)
[2018-04-03] MEDS: AZITHROMYCIN INJ 500 MG, VIAL MATE ADAPTER 1 EACH in D5W 250 ML IV SCH (17:08)
[2018-04-03] MEDS: DOCUSATE SODIUM 100 MG CAP PO SCH (17:09)
--- NOTE | 2018-04-03 17:53 | IPNPDOC ---
Text Note Date of Service The patient was seen on 04/03/18. NOTE S: Pt examined at bedside. No new complaints. Shortness of breath is improving, and is down to 4L this am from 8-10L overnight. LE edema improving too. Still has dry cough and wheezing. Noted to have an episode of sharp midsternal chest pain that awoke her from sleep ~4am and associated worsening sob. She felt better with DuoNeb and pain resolved afterwards. She has no other complaint at time of exam. PE: GENERAL: Resting comfortably in chair. NAD, A&O HEENT: NCAT, EOMI. Moist mucous membranes. NECK: Supple. Unable to assess JVD given large body habitus. CARDIAC: Regular rate and rhythm. No audible murmurs, clicks, gallops. LUNGS: Equal chest rise bilaterally. Bibasilar rales continue with mild wheezing l<r. On 4L NC ABDOMEN: Obese, soft, NR, ND. Positive bowel sounds. Urostomy bag with healthy stoma in place with light yellow output EXTREMITIES: Pitting edema 2+, bilateral lower extremities, up the thighs and sacrum. Nontender calves. SKIN: No visible lesions or ulcerations A/P: Acute hypoxic respiratory failure multifactorial 2/2 decompensated diastolic CHF & CAP On room air at baseline, however still requiring 4-6L NC Edema, rales, shortness of breath have improved with diuresis Continue ceftriaxone and azithromycin for community-acquired pneumonia. No longer febrile, WBC WNL. Elevated ESR and CRP may be 2/2 acute infection. Will continue to trend as we actively treat her infection. Should they continue to rise, will consider broadening antibiotics and o/p f/u for possible malignancy vs rheumatologic workup. Overall, is clinically improving on current regimen CTA today negative for PE, and confirms left lower lobe infiltrate and b/l pleural effusion. Continue abx and diuresis for net neg 2L & 1500cc fluid restriction Echo this admission reveals preserved EF at 75%, mitral insufficiency, impaired diastolic relaxation, left atrial dilatation. Continue as above. Hypertensive urgency resolved with home meds and IV diuresis expected to stabilize with continued diuresis Atypical chest pain episode ~4am today, workup including cardiac markers negative resolved with DuoNeb tx. Hemodynamically stable. Pain likely 2/2 acute pna and severe coughing continue closely monitoring Asymptomatic [id number] elevated CPK without signs of muscle or cardiac injury. Less concern for rhabdo vs myopathy, given pt does not have any complaints of body aches/soreness and level mildly elevated at 319. in setting of significantly elevated ESR as well, cannot rule out possible underlying rheumatologic vs inflammatory disease. Discussed with pt, and she states she has arthritis, but not sure which kind. At this time, cannot give IVF given her hypervolemic status. Since she is asymptomatic, with currently trend levels and continue monitoring. Consider pursuing further w/u if continues to rise. Other causes to consider: hypothyroidism, baseline Hill's Ds, meds Pulmonary opacities with reactive adenopathy in mediastinum and bilateral rima noted on admission chest CT concern for possible malignancy, especially given her remote history of tobacco use. Discussed with patient, will require outpatient follow-up. Patient is agreeable ------ Hypothyroidism not on any meds. Will require o/p f/u afte rshe recovers from acutely ill state discussed with pt and she relays understanding CKD stage III at baseline Cr ~1.1. Continue monitoring with diuresis. IDDM2 ISS & cons carb diet ALEX own CPAP & on ALEX protocol with underlying obesity hypoventilation syndrome and obesity complicating care Hx bladder cancer s/p TURBT & radical cystectomy Jan 2016. Currently has a urostomy. Hx of TIA s/p right CEA with Dr. 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 DVT ppx: Heparin sc DISPO: pending clinical improvement VS,Katty, I+O VS, [place], I+O Laboratory Tests 04/03/18 04:58 Red Blood Count 3.15 L, Mean Corpuscular Volume 97.5 H, Mean Corpuscular Hemoglobin 30.2, Mean Corpuscular Hemoglobin Concent 30.9 L, Red Cell Distribution Width 12.6, Calcium Level 8.0 L, Total Creatine Kinase 319 #H Vital Signs Date Time Temp Pulse Resp B/P (MAP) Pulse Ox O2 Delivery O2 Flow Rate FiO2 04/03/18 12:00 97.1 97 18 137/63 (87) 61 4.0 04/02/18 08:08 Nasal Cannula I&O- Last 24 Hours up to 6 AM 04/03/18 05:59 Intake Total 1575 ml Output Total 1670 ml Balance -95 ml GME ATTESTATION GME ATTESTATION My faculty preceptor for this patient encounter was physically present during the encounter and was fully available. All aspects of the patient interview, examination, medical decision making process, and medical care plan development were reviewed and approved by the faculty preceptor. The faculty preceptor is aware and concurs with the plan as stated in the body of this note and will attest to such by his/her cosignature. DORIS GUSTAFSON DO Apr 03, 2018 14:37
--- NOTE | 2018-04-03 20:18 | ECGEPIP ---
Stationary ECG Study [facility] - ED Test Date: 2018-04-02 Pat Name: CAMRYN KRUEGER Department: Room: - Gender: F Bag Inspector: INNA : 1945 Requested By: Jessenia Mays Order Number: [id number] Reading MD: Jessenia Mays Measurements Intervals [place] Rate: 77 P: 54 AR: 225 QRS: -19 QRSD: 124 T: 99 QT: 426 QTc: 484 Interpretive Statements SINUS RHYTHM WITH FIRST DEGREE AV BLOCK MODERATE INTRAVENTRICULAR CONDUCTION DELAY NONSPECIFIC ST & T-WAVE ABNORMALITY PROLONGED QTC INCREASED RATE 02/28/18 Electronically Signed On 04-03-2018 20:18:04 EST by Jessenia Mays
[2018-04-03] MEDS: PRAVASTATIN 20 MG TAB PO SCH (20:41)
[2018-04-03] MEDS: LEVEMIR (INSULIN DETEMIR) 1 UNITS/0.01ML SC SCH (20:44)
[2018-04-03] MEDS: rOPINIRole 1MG TAB PO SCH (20:44)
[2018-04-04] VITALS (7 sets, daily range): BP systolic 156–168; BP diastolic 58–92
[2018-04-04] MEDS: FUROSEMIDE 100 MG/10 ML VIAL (J1940) IV SCH ×4 (00:25→17:26)
[2018-04-04 05:58] LABS: HEMATOCRIT 28.5 % (36.0-47.0); HEMOGLOBIN 9.1 g/dl (12.0-15.5); MEAN CORPUSCULAR HEMOGLOBIN 30.7 pg (27.0-33.0); MEAN CORPUSCULAR HGB CONC 31.9 g/dl (32.0-36.5); MEAN CORPUSCULAR VOLUME 96.3 fl (80.0-96.0); PLATELET COUNT, AUTOMATED 205 10^3/uL (150-450); RED BLOOD COUNT 2.96 10^6/uL (4.00-5.40)
[2018-04-04 06:19] LABS: C REACTIVE PROTEIN QUANTITATIV 5.02 MG/DL (0.00-0.30); CALCIUM LEVEL 8.3 MG/DL (8.8-10.2); CREATININE FOR GFR 1.14 MG/DL (0.55-1.30); MAGNESIUM LEVEL 2.5 MG/DL (1.8-2.4); POTASSIUM SERUM 3.2 MEQ/L (3.5-5.1)
[2018-04-04] MEDS: HEPARIN SOD (PORCINE) 5000 UNITS/ML VIAL SC SCH ×3 (06:19→20:26)
[2018-04-04 06:24] LABS: ERYTHROCYTE SEDIMENTATION RATE 128 mm/hr (0-30)
[2018-04-04] MEDS ORDERED: POTASSIUM CHLORIDE 10 MEQ SR TABLET PO ONE (08:15)
[2018-04-04] MEDS: POTASSIUM CHLORIDE 10 MEQ SR TABLET PO SCH ×2 (09:00→20:24)
[2018-04-04] MEDS: MAGNESIUM OXIDE 400 MG TAB (MAG-OX) PO SCH ×3 (09:00→21:00)
[2018-04-04] MEDS: LISINOPRIL 10 MG TAB PO SCH (09:14)
[2018-04-04] MEDS: CLOPIDOGREL 75 MG TAB PO SCH (09:14)
[2018-04-04] MEDS: ASPIRIN 81 MG CHEW TABLET PO SCH (09:14)
[2018-04-04] MEDS: cloNIDine 0.1 MG TAB PO SCH ×2 (09:15→20:23)
[2018-04-04] MEDS: DOCUSATE SODIUM 100 MG CAP PO SCH ×2 (09:15→20:26)
[2018-04-04] MEDS: VITAMIN D 1,000 INTERNATIONAL UNITS TABLET PO SCH ×2 (09:15→20:24)
[2018-04-04] MEDS: SPIRONOLACTONE 50 MG TAB PO SCH ×2 (09:17→16:55)
[2018-04-04] MEDS: **hydrALAZINE** 10 MG TAB PO SCH ×2 (09:17→20:24)
[2018-04-04] MEDS: KORLYM PO SCH ×2 (09:18→20:20)
[2018-04-04] MEDS: CARVedilol 3.125 MG TAB PO SCH ×2 (09:18→20:23)
[2018-04-04] MEDS: KCL 10MEQ/100ML SWI (KRUN) 10 MEQ in APPROPRIATE DILUENT 1 EA IV SCH ×2 (09:19→11:30)
[2018-04-04] MEDS: HumaLOG INSULIN (NovoLOG) PER UNIT SC SCH ×4 (09:28→20:22)
[2018-04-04] MEDS: METOCLOPRAMIDE INJ 10MG/2ML VIAL (J2765) IV PRN (11:30)
[2018-04-04] MEDS: cefTRIAXone SOD 1 GM in D5W MINI-BAG PLUS 50 ML IV SCH (16:55)
[2018-04-04] MEDS: AZITHROMYCIN INJ 500 MG, VIAL MATE ADAPTER 1 EACH in D5W 250 ML IV SCH (17:25)
--- NOTE | 2018-04-04 18:44 | IPNPDOC ---
Text Note Date of Service The patient was seen on 04/04/18. NOTE S: Pt examined at bedside. No issues overnight. States her breathing is better and edema is improving. Diuresed about 3.5L yesterday. Afebrile today and continues on supplemental O2. She was noted to have shakes this morning, but states that is normal for her and she has not yet taken her Ropinirole. Otherwise, continues to improve. PE: GENERAL: Resting comfortably in chair. NAD, A&O HEENT: NCAT, EOMI. Moist mucous membranes. NECK: Supple. Unable to assess JVD given large body habitus. CARDIAC: Regular rate and rhythm. No audible murmurs, clicks, gallops. LUNGS: Equal chest rise bilaterally. Bibasilar rales l<r. On 4L NC ABDOMEN: Obese, soft, NR, ND. Positive bowel sounds. Urostomy bag with healthy stoma in place with light yellow output EXTREMITIES: Pitting edema 2+, bilateral lower extremities up the thighs. Nontender calves. SKIN: No visible lesions or ulcerations A/P: Acute hypoxic respiratory failure multifactorial 2/2 decompensated diastolic CHF & CAP On room air at baseline, however still requiring 4L NC Overall improving. Continue diuresis and ceftriaxone and azithromycin ESR and CRP trending down, remains afebrile, and WBC WNL Echo this admission reveals preserved EF at 75%, mitral insufficiency, impaired diastolic relaxation, left atrial dilatation. Continue as above. Hypokalemia likely 2/2 aggressive diuresis supplemented Pulmonary opacities with reactive adenopathy in mediastinum and bilateral rima noted on admission chest CT concern for possible malignancy, especially given her remote history of tobacco use. Discussed with patient, will require outpatient follow-up. Patient is agreeable ------ Atypical chest pain resolved, likely 2/2 coughing and acute infection. Monitor Asymptomatic [id number] CPK trending down from 319 to 89 today. May be 2/2 untreated hypothyroidism. Pt asymptomatic. Continue monitoring Hypertensive urgency resolved with home meds and IV diuresis expected to stabilize with continued diuresis Hypothyroidism not on any meds. Will require o/p f/u after she recovers from acutely ill state discussed with pt and she relays understanding CKD stage III at baseline Cr ~1.1. Continue monitoring with diuresis. IDDM2 ISS & cons carb diet ALEX own CPAP & on ALEX protocol with underlying obesity hypoventilation syndrome and obesity complicating care Hx bladder cancer s/p TURBT & radical cystectomy Jan 2016. Currently has a urostomy. Hx of TIA s/p right CEA with Dr. Jimenez CAD s/p cardiac catheterization 2013 with 1 stent cont aspirin, plavix, and statin Hx [place] syndrome admission chest CT shows stable hyperplastic changes to the bilateral adrenal glands continue home Korlym. DVT ppx: Heparin sc DISPO: pending clinical improvement, PT/OT. VS,Fishbone, I+O VS, Fishbone, I+O Laboratory Tests 04/04/18 05:13 Red Blood Count 2.96 L, Mean Corpuscular Volume 96.3 H, Mean Corpuscular Hemoglobin 30.7, Mean Corpuscular Hemoglobin Concent 31.9 L, Red Cell Distribution Width 12.5, Calcium Level 8.3 L Vital Signs Date Time Temp Pulse Resp B/P (MAP) Pulse Ox O2 Delivery O2 Flow Rate FiO2 04/04/18 16:15 97.4 64 19 163/66 (98) 81 4.0 04/02/18 08:08 Nasal Cannula I&O- Last 24 Hours up to 6 AM 04/04/18 06:00 Intake Total 1380 ml Output Total 2980 ml Balance -1600 ml GME ATTESTATION GME ATTESTATION My faculty preceptor for this patient encounter was physically present during the encounter and was fully available. All aspects of the patient interview, examination, medical decision making process, and medical care plan development were reviewed and approved by the faculty preceptor. The faculty preceptor is aware and concurs with the plan as stated in the body of this note and will attest to such by his/her cosignature. DORIS GUSTAFSON DO Apr 04, 2018 18:44
[2018-04-04] MEDS: LEVEMIR (INSULIN DETEMIR) 1 UNITS/0.01ML SC SCH (20:21)
[2018-04-04] MEDS: PRAVASTATIN 20 MG TAB PO SCH (20:23)
[2018-04-04] MEDS: rOPINIRole 1MG TAB PO SCH (20:23)
[2018-04-05] VITALS (9 sets, daily range): BP systolic 120–190; BP diastolic 50–82; PULSE 63
[2018-04-05] MEDS: FUROSEMIDE 100 MG/10 ML VIAL (J1940) IV SCH ×4 (00:25→19:00)
[2018-04-05] MEDS: CARVedilol 3.125 MG TAB PO SCH ×2 (04:17→20:50)
[2018-04-05] MEDS: LISINOPRIL 10 MG TAB PO SCH (04:18)
[2018-04-05 04:32] LABS: HEMATOCRIT 30.1 % (36.0-47.0); HEMOGLOBIN 9.6 g/dl (12.0-15.5); MEAN CORPUSCULAR HEMOGLOBIN 30.6 pg (27.0-33.0); MEAN CORPUSCULAR HGB CONC 31.9 g/dl (32.0-36.5); MEAN CORPUSCULAR VOLUME 95.9 fl (80.0-96.0); PLATELET COUNT, AUTOMATED 232 10^3/uL (150-450); RED BLOOD COUNT 3.14 10^6/uL (4.00-5.40); WHITE BLOOD COUNT 6.2 10^3/uL (4.0-10.0)
[2018-04-05 04:50] LABS: BLOOD UREA NITROGEN 13 MG/DL (7-18); CALCIUM LEVEL 8.5 MG/DL (8.8-10.2); CARBON DIOXIDE LEVEL 34 MEQ/L (21-32); CHLORIDE LEVEL 102 MEQ/L (98-107); CREATININE FOR GFR 1.13 MG/DL (0.55-1.30); GLOMERULAR FILTRATION RATE 50.5 (>39); GLUCOSE, FASTING 151 MG/DL (70-100); MAGNESIUM LEVEL 2.3 MG/DL (1.8-2.4); POTASSIUM SERUM 3.2 MEQ/L (3.5-5.1); SODIUM LEVEL 143 MEQ/L (136-145)
[2018-04-05 05:14] LABS: TROPONIN I < 0.02 NG/ML (< 0.10)
[2018-04-05] MEDS ORDERED: POTASSIUM CHLORIDE 10 MEQ SR TABLET PO ONE (05:15)
[2018-04-05] MEDS: HEPARIN SOD (PORCINE) 5000 UNITS/ML VIAL SC SCH ×3 (05:34→20:48)
[2018-04-05] MEDS: KORLYM PO SCH ×2 (08:31→20:48)
[2018-04-05] MEDS: SPIRONOLACTONE 25 MG TAB PO SCH ×2 (08:32→17:12)
[2018-04-05] MEDS: HumaLOG INSULIN (NovoLOG) PER UNIT SC SCH ×4 (08:32→20:50)
[2018-04-05] MEDS: CLOPIDOGREL 75 MG TAB PO SCH (08:32)
[2018-04-05] MEDS: **hydrALAZINE** 10 MG TAB PO SCH ×2 (08:33→20:47)
[2018-04-05] MEDS: MAGNESIUM OXIDE 400 MG TAB (MAG-OX) PO SCH ×2 (08:33→20:47)
[2018-04-05] MEDS: SPIRONOLACTONE 50 MG TAB PO SCH ×2 (08:34→17:12)
[2018-04-05] MEDS: VITAMIN D 1,000 INTERNATIONAL UNITS TABLET PO SCH ×2 (08:34→20:48)
[2018-04-05] MEDS: ASPIRIN 81 MG CHEW TABLET PO SCH (08:34)
[2018-04-05] MEDS: POTASSIUM CHLORIDE 10 MEQ SR TABLET PO SCH ×2 (08:34→20:49)
[2018-04-05] MEDS: cloNIDine 0.1 MG TAB PO SCH ×2 (08:35→20:50)
[2018-04-05] MEDS: DOCUSATE SODIUM 100 MG CAP PO SCH ×2 (08:37→20:46)
[2018-04-05] MEDS: ACETAMINOPHEN TAB 650MG DOSE (2X325MG) PO PRN ×3 (10:19→23:00)
[2018-04-05] MEDS: tiZANidine 4 MG TAB PO PRN (13:29)
[2018-04-05] MEDS ORDERED: PILL CRUSHER/CUTTER 1 EACH XX PRN (13:30)
--- NOTE | 2018-04-05 14:16 | ECGEPIP ---
Stationary ECG Study [facility] Test Date: 2018-04-05 Pat Name: CAMRYN KRUEGER Department: Room: [place] [address] Gender: F Director Presales: MICKIE : 1945 Requested By: ZAHIDA HUYNH Order Number: [id number] Reading MD: Dustin Florez Measurements Intervals [place] Rate: 76 P: 54 [place]: 214 QRS: -14 QRSD: 118 T: 60 QT: 434 QTc: 490 Interpretive Statements SINUS RHYTHM WITH FIRST DEGREE AV BLOCK MODERATE INTRAVENTRICULAR CONDUCTION DELAY Poor R wave progression NONSPECIFIC T-WAVE ABNORMALITY Electronically Signed On 04-05-2018 14:16:01 EST by Dustin Florez
[2018-04-05] MEDS: cefTRIAXone SOD 1 GM in D5W MINI-BAG PLUS 50 ML IV SCH (16:21)
[2018-04-05] MEDS: AZITHROMYCIN INJ 500 MG, VIAL MATE ADAPTER 1 EACH in D5W 250 ML IV SCH (17:12)
--- NOTE | 2018-04-05 18:27 | IPN ---
DATE: 04/05/2018 SUBJECTIVE: Patient seen and examined in the room today. Patient feels her breathing may be improved. Patient is complaining of lower extremity muscle cramps. Denies any fevers or chills. OBJECTIVE: VITAL SIGNS: Temperature is 97.2, pulse 63, respiration rate is 19, blood pressure 176/80, pulse oximetry 97% with 3 liters nasal cannula. GENERAL: No sign of acute distress. Alert and awake. HEENT: Normocephalic, atraumatic. Extraocular motor grossly intact. CARDIOVASCULAR: Positive S1, S2, regular rate. LUNGS: Positive rales. No wheezes appreciated. ABDOMEN: Soft, nontender, nondistended. EXTREMITIES: Positive edema, improving, in the upper and lower extremities. LABORATORY DATA: WBC 6.2, hemoglobin 9.6, hematocrit 30.1, platelet count is 232. Sodium is 143, potassium is 3.2, chloride 102, carbon dioxide 34, BUN 13, creatinine is 1.13, GFR is 50.5, fasting glucose 151, calcium 8.5, magnesium 2.3. Troponin I is less than 0.02. ASSESSMENT AND PLAN: 1. Acute respiratory failure. Patient is currently being treated for decompensated diastolic congestive heart failure. Patient also being treated for pneumonia. Continue antibiotics. Continue diuresis. Continue to titrate oxygen as tolerated. 2. Hypokalemia. Patient is currently on diuretic for decompensated heart failure. Will supplement accordingly. 3. Hypertensive urgency. Currently patient is on Coreg, diuretic, on lisinopril, spironolactone. 4. Insulin-dependent diabetes. Patient on insulin, on consistent-carbohydrate diet. 5. History of [place] syndrome. Continue Korlym. 6. Coronary artery disease, status post catheterization with cardiac stent placement. Continue aspirin, Plavix, and statin. 7. History of transient ischemic attacks (TIA), status post right carotid endarterectomy (CEA) with Dr. Jimenez. 8. History of bladder cancer. Patient has a urostomy. Status post radical cystectomy. 9. Obstructive sleep apnea (ALEX), on continuous positive airway pressure (CPAP). 10. Deep vein thrombosis (DVT) prophylaxis, on heparin. MTDD
[2018-04-05] MEDS: rOPINIRole 1MG TAB PO SCH (20:49)
[2018-04-05] MEDS: PRAVASTATIN 20 MG TAB PO SCH (20:49)
[2018-04-05] MEDS: LEVEMIR (INSULIN DETEMIR) 1 UNITS/0.01ML SC SCH (20:51)
[2018-04-05] MEDS ORDERED: SLF 3 ML SYR IV PRN (21:45)
[2018-04-05] MEDS: SLF 3 ML SYR IV SCH (22:00)
[2018-04-05] MEDS: ANALGESIC BALM CRM 120 GM TOP PRN (23:01)
[2018-04-06] VITALS (10 sets, daily range): BP systolic 130–220; BP diastolic 60–92
[2018-04-06 05:51] LABS: HEMATOCRIT 30.1 % (36.0-47.0); HEMOGLOBIN 9.4 g/dl (12.0-15.5); MEAN CORPUSCULAR HEMOGLOBIN 30.2 pg (27.0-33.0); MEAN CORPUSCULAR HGB CONC 31.2 g/dl (32.0-36.5); MEAN CORPUSCULAR VOLUME 96.8 fl (80.0-96.0); PLATELET COUNT, AUTOMATED 233 10^3/uL (150-450); RED BLOOD COUNT 3.11 10^6/uL (4.00-5.40); WHITE BLOOD COUNT 4.5 10^3/uL (4.0-10.0)
[2018-04-06] MEDS: HEPARIN SOD (PORCINE) 5000 UNITS/ML VIAL SC SCH ×3 (06:19→21:24)
[2018-04-06] MEDS: SLF 3 ML SYR IV SCH ×3 (06:20→21:25)
[2018-04-06] MEDS: FUROSEMIDE 100 MG/10 ML VIAL (J1940) IV SCH ×2 (06:20)
[2018-04-06 06:21] LABS: CALCIUM LEVEL 8.6 MG/DL (8.8-10.2); CREATININE FOR GFR 1.06 MG/DL (0.55-1.30); GLOMERULAR FILTRATION RATE 54.4 (>39); MAGNESIUM LEVEL 2.4 MG/DL (1.8-2.4); POTASSIUM SERUM 3.4 MEQ/L (3.5-5.1)
[2018-04-06] MEDS ORDERED: POTASSIUM CHLORIDE 10 MEQ SR TABLET PO ONE (08:00)
[2018-04-06 08:18] LABS: C REACTIVE PROTEIN QUANTITATIV 1.25 MG/DL (0.00-0.30)
[2018-04-06] MEDS: CLOPIDOGREL 75 MG TAB PO SCH (08:21)
[2018-04-06] MEDS: DOCUSATE SODIUM 100 MG CAP PO SCH ×2 (08:21→21:20)
[2018-04-06] MEDS: POTASSIUM CHLORIDE 10 MEQ SR TABLET PO SCH ×2 (08:30→21:24)
[2018-04-06] MEDS: ASPIRIN 81 MG CHEW TABLET PO SCH (08:31)
[2018-04-06] MEDS: VITAMIN D 1,000 INTERNATIONAL UNITS TABLET PO SCH ×2 (08:31→21:22)
[2018-04-06] MEDS: TORSEMIDE 20 MG TAB PO SCH ×2 (08:31→18:13)
[2018-04-06] MEDS: MAGNESIUM OXIDE 400 MG TAB (MAG-OX) PO SCH ×2 (08:32→21:21)
[2018-04-06] MEDS: **hydrALAZINE HCL** 25 MG TAB PO SCH ×2 (08:33→19:47)
[2018-04-06] MEDS: LISINOPRIL 10 MG TAB PO SCH (08:34)
[2018-04-06] MEDS: cloNIDine 0.1 MG TAB PO SCH ×2 (08:34→19:45)
[2018-04-06] MEDS: CARVedilol 3.125 MG TAB PO SCH ×2 (08:35→19:46)
[2018-04-06] MEDS: HumaLOG INSULIN (NovoLOG) PER UNIT SC SCH ×4 (08:35→21:23)
[2018-04-06] MEDS: KORLYM PO SCH ×2 (08:36→21:00)
[2018-04-06 08:46] LABS: ERYTHROCYTE SEDIMENTATION RATE 129 mm/hr (0-30)
--- NOTE | 2018-04-06 10:08 | ECGEPIP ---
Stationary ECG Study [facility] Test Date: 2018-04-03 Pat Name: CAMRYN KRUEGER Department: Room: [place] [address] Gender: F Director Energy: RADHA : 1945 Requested By: OCTAVIO MURPHY Order Number: [id number] Reading MD: Dustin Florez Measurements Intervals [place] Rate: 68 P: 54 [place]: 211 QRS: -17 QRSD: 117 T: 77 QT: 445 QTc: 475 Interpretive Statements SINUS RHYTHM WITH FIRST DEGREE AV BLOCK MODERATE INTRAVENTRICULAR CONDUCTION DELAY NONSPECIFIC T-WAVE ABNORMALITY Electronically Signed On 04-06-2018 10:07:56 EST by Dustin Florez
--- NOTE | 2018-04-06 12:30 | IPNPDOC ---
Text Note Date of Service The patient was seen on 04/06/18. NOTE S: Pt examined at bedside. No issues overnight. Diuresing well with 4.8L out y esterday. Renal function stable, and her breathing and edema continue to improve. Diuresed about 3.5L yesterday. Afebrile today and continues on 3L NC. PE: GENERAL: Resting comfortably in chair. NAD, A&O HEENT: NCAT, EOMI. Moist mucous membranes. NECK: Supple. Unable to assess JVD given large body habitus. CARDIAC: Regular rate and rhythm. No audible murmurs, clicks, gallops. LUNGS: Equal chest rise bilaterally. No w/r/r. On 3L NC ABDOMEN: Obese, soft, NR, ND. Positive bowel sounds. Urostomy bag with healthy stoma in place with light yellow output EXTREMITIES: Pitting edema 2+, bilateral lower extremities up the thighs. Nontender calves. SKIN: No visible lesions or ulcerations A/P: Acute hypoxia 2/2 decompensated diastolic CHF & CAP On room air at baseline, however still requiring supplemental O2. Is improving, continue down-titrating O2, at 3L today Overall improving. Will switch fro IV to po diuretics. On day 5 of ceftriaxone and azithromycin ESR stable, CRP trending down, remains afebrile,WBC WNL, coughing improving Echo this admission reveals preserved EF at 75%, mitral insufficiency, impaired diastolic relaxation, left atrial dilatation. Continue as above. continue PT/OT Hypertensive Urgency continues despite home regimen and active diuresis pt asymptomatic and otherwise stable. Regimen has been adjusted, with increased hydralazine, which she tolerated well and had positive bp response. Continue monitoring Hypokalemia likely 2/2 aggressive diuresis supplemented Pulmonary opacities with reactive adenopathy in mediastinum and bilateral rima noted on admission chest CT concern for possible malignancy, especially given her remote history of tobacco use. Discussed with patient, will require outpatient follow-up. Patient is agreeable ------ Hypothyroidism not on any meds. Will require o/p f/u after she recovers from acutely ill state discussed with pt and she relays understanding CKD stage III at baseline Cr ~1.1. Continue monitoring with diuresis. IDDM2 ISS & cons carb diet ALEX own CPAP & on ALEX protocol with underlying obesity hypoventilation syndrome and obesity complicating care Hx bladder cancer s/p TURBT & radical cystectomy Jan 2016. Currently has a urostomy. Hx of TIA s/p right CEA with Dr. Jimenez CAD s/p cardiac catheterization 2013 with 1 stent cont aspirin, plavix, and statin Hx Dee syndrome admission chest CT shows stable hyperplastic changes to the bilateral adrenal glands continue home Korlym. DVT ppx: Heparin sc DISPO: pending clinical improvement, PT/OT. VS,Fishbone, I+O VS, Fishbone, I+O Laboratory Tests 04/06/18 05:32 Red Blood Count 3.11 L, Mean Corpuscular Volume 96.8 H, Mean Corpuscular Hemoglobin 30.2, Mean Corpuscular Hemoglobin Concent 31.2 L, Red Cell Distribution Width 12.5, Calcium Level 8.6 L Vital Signs Date Time Temp Pulse Resp B/P (MAP) Pulse Ox O2 Delivery O2 Flow Rate FiO2 04/06/18 10:30 130/60 (83) 04/06/18 08:35 69 04/06/18 07:48 98.0 19 90 04/05/18 23:59 3.0 04/02/18 08:08 Nasal Cannula I&O- Last 24 Hours up to 6 AM 04/06/18 06:00 Intake Total 2190 ml Output Total 3425 ml Balance -1235 ml GME ATTESTATION GME ATTESTATION My faculty preceptor for this patient encounter was physically present during the encounter and was fully available. All aspects of the patient interview, examination, medical decision making process, and medical care plan development were reviewed and approved by the faculty preceptor. The faculty preceptor is aware and concurs with the plan as stated in the body of this note and will attest to such by his/her cosignature. DORIS GUSTAFSON DO Apr 06, 2018 12:30
[2018-04-06] MEDS ORDERED: PILL CRUSHER/CUTTER 1 EACH XX PRN (14:00)
[2018-04-06] MEDS: cefTRIAXone SOD 1 GM in D5W MINI-BAG PLUS 50 ML IV SCH (15:38)
[2018-04-06] MEDS: AZITHROMYCIN INJ 500 MG, VIAL MATE ADAPTER 1 EACH in D5W 250 ML IV SCH (16:42)
[2018-04-06] MEDS: SPIRONOLACTONE 50 MG TAB PO SCH (18:13)
[2018-04-06] MEDS: rOPINIRole 1MG TAB PO SCH (21:21)
[2018-04-06] MEDS: PRAVASTATIN 20 MG TAB PO SCH (21:22)
[2018-04-06] MEDS: LEVEMIR (INSULIN DETEMIR) 1 UNITS/0.01ML SC SCH (21:23)
[2018-04-06] MEDS: ACETAMINOPHEN TAB 650MG DOSE (2X325MG) PO PRN (23:25)
[2018-04-06] MEDS: ANALGESIC BALM CRM 120 GM TOP PRN (23:26)
[2018-04-07 04:00] VITALS: BP 182/78
[2018-04-07 05:50] LABS: HEMATOCRIT 31.2 % (36.0-47.0); HEMOGLOBIN 9.8 g/dl (12.0-15.5); MEAN CORPUSCULAR HEMOGLOBIN 30.2 pg (27.0-33.0); MEAN CORPUSCULAR HGB CONC 31.4 g/dl (32.0-36.5); PLATELET COUNT, AUTOMATED 222 10^3/uL (150-450); RED BLOOD COUNT 3.25 10^6/uL (4.00-5.40); WHITE BLOOD COUNT 4.7 10^3/uL (4.0-10.0)
[2018-04-07 06:16] LABS: CALCIUM LEVEL 8.1 MG/DL (8.8-10.2); CREATININE FOR GFR 1.15 MG/DL (0.55-1.30); GLOMERULAR FILTRATION RATE 49.5 (>39); MAGNESIUM LEVEL 2.2 MG/DL (1.8-2.4); POTASSIUM SERUM 3.5 MEQ/L (3.5-5.1)
[2018-04-07] MEDS: SLF 3 ML SYR IV SCH ×3 (06:21→21:19)
[2018-04-07] MEDS: HEPARIN SOD (PORCINE) 5000 UNITS/ML VIAL SC SCH ×3 (06:21→21:15)
[2018-04-07 08:02] VITALS: BP 202/86
[2018-04-07] MEDS: KORLYM PO SCH ×2 (08:14→21:18)
[2018-04-07] MEDS: HumaLOG INSULIN (NovoLOG) PER UNIT SC SCH ×4 (08:15→21:16)
[2018-04-07] MEDS: ASPIRIN 81 MG CHEW TABLET PO SCH (08:15)
[2018-04-07] MEDS: POTASSIUM CHLORIDE 10 MEQ SR TABLET PO SCH ×2 (08:16→21:16)
[2018-04-07] MEDS: CLOPIDOGREL 75 MG TAB PO SCH (08:16)
[2018-04-07] MEDS: DOCUSATE SODIUM 100 MG CAP PO SCH ×2 (08:16→21:18)
[2018-04-07] MEDS: VITAMIN D 1,000 INTERNATIONAL UNITS TABLET PO SCH ×2 (08:16→21:17)
[2018-04-07] MEDS: SPIRONOLACTONE 50 MG TAB PO SCH ×2 (08:17→16:39)
[2018-04-07] MEDS: TORSEMIDE 20 MG TAB PO SCH ×2 (08:17→16:40)
[2018-04-07] MEDS: MAGNESIUM OXIDE 400 MG TAB (MAG-OX) PO SCH ×2 (08:17→21:18)
[2018-04-07] MEDS: **hydrALAZINE HCL** 25 MG TAB PO SCH (08:18)
[2018-04-07] MEDS: LISINOPRIL 10 MG TAB PO SCH (08:19)
[2018-04-07] MEDS: CARVedilol 3.125 MG TAB PO SCH (08:19)
[2018-04-07] MEDS: cloNIDine 0.1 MG TAB PO SCH ×2 (08:20→21:18)
[2018-04-07 09:38] VITALS: BP 132/60
[2018-04-07] MEDS: tiZANidine 4 MG TAB PO PRN ×2 (12:49→21:16)
[2018-04-07] MEDS: cefTRIAXone SOD 1 GM in D5W MINI-BAG PLUS 50 ML IV SCH (15:15)
[2018-04-07 16:14] VITALS: BP 182/68
[2018-04-07 16:35] VITALS: BP 162/62
[2018-04-07] MEDS: AZITHROMYCIN INJ 500 MG, VIAL MATE ADAPTER 1 EACH in D5W 250 ML IV SCH (16:39)
[2018-04-07 20:00] VITALS: BP 160/80
--- NOTE | 2018-04-07 20:08 | IPNPDOC ---
Text Note Date of Service The patient was seen on 04/07/18. NOTE SUBJECTIVE: Patient is seen and examined in the room. Patient states her upper extremity swelling has been improving. She also notices improvement of lower extremity swelling and her shortness of breath. Denies any fevers or chills. OBJECTIVE: VITAL SIGNS: Listed below. GENERAL: No sign of acute distress. Alert and awake. HEENT: Normocephalic, atraumatic. Extraocular motor grossly intact. CARDIOVASCULAR: Positive S1, S2, regular rate. LUNGS: Positive rales. No wheezes appreciated. ABDOMEN: Soft, nontender, nondistended. EXTREMITIES: Positive edema, improving, in the upper and lower extremities. LABORATORY DATA: Listed below. ASSESSMENT AND PLAN: #. Acute respiratory failure. - Patient is currently being treated for decompensated diastolic congestive heart failure. Patient is also being treated for pneumonia. Continue antibiotics. Continue diuresis. Continue to titrate oxygen as tolerated. #. Diastolic CHF exacerbation - On PO torsamide and spirolactone. #. Hypokalemia. - Patient is currently on diuretic for decompensated heart failure. Supplement as needed. #. Hypertensive urgency. - Adjusting Coreg, lisinopril, hydralazine, clonidine, torsamide and spironolactone. #. Insulin-dependent diabetes. - Patient on insulin, on consistent-carbohydrate diet. #. History of Dee syndrome. Continue Korlym. #. Coronary artery disease, status post catheterization with cardiac stent placement. Continue aspirin, Plavix, and statin. #. History of transient ischemic attacks (TIA), status post right carotid endarterectomy (CEA) with Dr. Jimenez. #. History of bladder cancer. Patient has a urostomy. Status post radical cystectomy. #. Obstructive sleep apnea (ALEX), on continuous positive airway pressure (CPAP). #. Deep vein thrombosis (DVT) prophylaxis, on heparin. VS,Fishbone, I+O VS, Fishbone, I+O Laboratory Tests 04/07/18 05:13 Red Blood Count 3.25 L, Mean Corpuscular Volume 96.0, Mean Corpuscular Hemoglobin 30.2, Mean Corpuscular Hemoglobin Concent 31.4 L, Red Cell Distribution Width 12.4, Calcium Level 8.1 L Vital Signs Date Time Temp Pulse Resp B/P (MAP) Pulse Ox O2 Delivery O2 Flow Rate FiO2 3/3/19 18:54 95 04/07/18 16:35 162/62 (95) 04/07/18 16:14 97.6 65 18 2.0 04/02/18 08:08 Nasal Cannula I&O- Last 24 Hours up to 6 AM 04/07/18 06:00 Intake Total 1145 ml Output Total 4050 ml Balance -2905 ml OCTAVIO MURPHY DO Apr 07, 2018 20:08
[2018-04-07] MEDS: LEVEMIR (INSULIN DETEMIR) 1 UNITS/0.01ML SC SCH (21:00)
[2018-04-07] MEDS: PRAVASTATIN 20 MG TAB PO SCH (21:17)
[2018-04-07] MEDS: rOPINIRole 1MG TAB PO SCH (21:17)
[2018-04-07] MEDS: **hydrALAZINE** 50 MG TAB PO SCH (21:17)
[2018-04-07] MEDS: CARVedilol 6.25 MG TAB PO SCH (21:18)
[2018-04-08 04:00] VITALS: BP 180/78
[2018-04-08] MEDS: SLF 3 ML SYR IV SCH ×2 (04:20→13:35)
[2018-04-08] MEDS ORDERED: **hydrALAZINE** 50 MG TAB PO ONE (05:00)
[2018-04-08 05:16] LABS: HEMATOCRIT 29.3 % (36.0-47.0); HEMOGLOBIN 9.3 g/dl (12.0-15.5); MEAN CORPUSCULAR HGB CONC 31.7 g/dl (32.0-36.5); MEAN CORPUSCULAR VOLUME 94.5 fl (80.0-96.0); PLATELET COUNT, AUTOMATED 236 10^3/uL (150-450); WHITE BLOOD COUNT 5.2 10^3/uL (4.0-10.0)
[2018-04-08] MEDS: HEPARIN SOD (PORCINE) 5000 UNITS/ML VIAL SC SCH ×2 (05:18→13:35)
[2018-04-08 05:38] LABS: CALCIUM LEVEL 8.5 MG/DL (8.8-10.2); CREATININE FOR GFR 1.12 MG/DL (0.55-1.30); GLOMERULAR FILTRATION RATE 51.1 (>39); MAGNESIUM LEVEL 2.2 MG/DL (1.8-2.4); POTASSIUM SERUM 3.2 MEQ/L (3.5-5.1)
[2018-04-08] MEDS: HumaLOG INSULIN (NovoLOG) PER UNIT SC SCH ×2 (07:45→11:50)
[2018-04-08] MEDS: CLOPIDOGREL 75 MG TAB PO SCH (07:46)
[2018-04-08] MEDS: TORSEMIDE 20 MG TAB PO SCH (07:46)
[2018-04-08] MEDS: POTASSIUM CHLORIDE 10 MEQ SR TABLET PO SCH (07:46)
[2018-04-08] MEDS: ASPIRIN 81 MG CHEW TABLET PO SCH (07:47)
[2018-04-08] MEDS: SPIRONOLACTONE 50 MG TAB PO SCH (07:47)
[2018-04-08] MEDS: cloNIDine 0.1 MG TAB PO SCH (07:47)
[2018-04-08] MEDS: VITAMIN D 1,000 INTERNATIONAL UNITS TABLET PO SCH (07:47)
[2018-04-08] MEDS: **hydrALAZINE** 50 MG TAB PO SCH (07:48)
[2018-04-08] MEDS: MAGNESIUM OXIDE 400 MG TAB (MAG-OX) PO SCH (07:48)
[2018-04-08] MEDS: DOCUSATE SODIUM 100 MG CAP PO SCH (07:48)
[2018-04-08 07:49] VITALS: BP 168/70
[2018-04-08] MEDS: CARVedilol 6.25 MG TAB PO SCH (07:49)
[2018-04-08] MEDS: KORLYM PO SCH (07:49)
[2018-04-08 08:00] VITALS: BP 168/70
[2018-04-08] MEDS ORDERED: LISINOPRIL 40 MG TAB PO SCH (09:00)
[2018-04-08] MEDS: KCL 10MEQ/100ML SWI (KRUN) 10 MEQ in APPROPRIATE DILUENT 1 EA IV SCH ×2 (09:22→10:36)
[2018-04-08] MEDS ORDERED: LISI40TA PO (09:28)
[2018-04-08] MEDS ORDERED: HYDR50TA PO (09:28)
[2018-04-08] MEDS ORDERED: CARV6.25 PO (09:28)
[2018-04-08 12:00] VITALS: BP 147/72
[2018-04-08] MEDS: tiZANidine 4 MG TAB PO PRN (14:39)
--- NOTE | 2018-04-09 00:29 | DSES ---
DATE OF ADMISSION: 04/02/2018 DATE OF DISCHARGE: 04/08/2018 PRIMARY CARE PROVIDER: Randell Dove CONSULTANTS: None. PROCEDURES: None. DISCHARGE DIAGNOSES: 1. Acute respiratory failure secondary to decompensated diastolic congestive heart failure. 2. Diastolic congestive heart failure exacerbation. 3. Hypokalemia. 4. Hypertensive urgency. 5. Insulin-dependent diabetes. 6. Coronary artery disease, status post catheterization with cardiac stent. 7. History of transient ischemic attack (TIA), status post right carotid endarterectomy. 8. History of bladder cancer. 9. Obstructive sleep apnea (ALEX), on continuous positive airway pressure (CPAP). 10.History of [place] syndrome. 11. Obesity hypoventilation syndrome. 12. Pneumonia. HOSPITALIZATION COURSE: The patient is a 73-year-old female who presented to [facility] on 04/02/2018 with a complaint of shortness of breath. The patient is under the hospitalist service for congestive heart failure exacerbation, and patient suspected to have pneumonia. The intravenous (IV) diuretic initiated for the patient. Patient started on empiric antibiotics. The patient was found to have hypertensive urgency and blood pressure medications also being adjusted. With the diuretic, patient's signs of fluid overload continued to improve. Later, the diuretic was adjusted to the oral formulation. Patient's oxygen also being titrated as tolerated. Patient also experienced electrolyte abnormality due to diuretic adjustment. Electrolytes supplemented accordingly. With diuresis, the patient was able to have improvement of respiratory status. Later, the patient was able to wean off the oxygen, and the patient's diuretic regimen was also adjusted and patient determined stable for discharge home on 04/08/2018. The patient was recommended to followup with her primary care provider in 1-2 weeks. Patient also should followup with nephrology in 1 week. VITAL SIGNS: Temperature is 97.4, pulse is 64, respirations 20, blood pressure 147/72, pulse oximetry 92% in room air. LABORATORY DATA: WBC 5.2, hemoglobin 9.3, hematocrit 29.3, platelet count is 236. Sodium is 144, potassium 3.2, chloride 102, carbon dioxide 35, BUN is 15, creatinine 1.12, GFR is 51.1, fasting glucose 221, calcium 8.5, magnesium 2.2. Microbiology: Blood cultures from 04/02/2018 showed no growth after five days times two sets. Respiratory panel is negative. Methicillin-resistant Staphylococcus aureus (MRSA) screen is negative. Urine culture is negative. IMAGING STUDIES: CT of the chest with contrast demonstrated pulmonary opacities along with a small pleural reaction and reactive adenopathy. Stable hyperplastic changes to the bilateral adrenal glands. Cholelithiasis. CT angiogram of the chest demonstrated no evidence of pulmonary embolism. Small increase of pleural effusion along with ground-glass opacity and bibasilar atelectasis. DISCHARGE MEDICATIONS: - carvedilol 6.25 mg by mouth twice a day - hydralazine 50 mg by mouth twice a day - lisinopril 40 mg by mouth daily - aspirin 81 mg by mouth daily - Basaglar Kwikpen 20 units subcu nightly - clonidine 0.1 mg by mouth twice a day - Plavix 75 mg by mouth daily - glipizide 10 mg by mouth twice a day - insulin aspart subcu before meals - Korlym 300 mg by mouth twice a day - magnesium oxide 500 mg by mouth twice a day - metformin 100 mg by mouth twice a day - potassium chloride 40 mEq by mouth twice a day - pravastatin 40 mg by mouth nightly - ropinirole 1 mg by mouth nightly - spironolactone 50 mg by mouth twice a day - tizanidine 2 mg by mouth daily as needed for spasms - tizanidine 2 mg by mouth twice a day - torsemide 20 mg by mouth twice a day - trazodone 100 mg by mouth nightly - vitamin D 2000 units by mouth twice a day DISCHARGE INSTRUCTIONS: Discontinue lines. Discharge home. Activity as tolerated. Consistent carbohydrate diet as tolerated. Patient should followup with her primary care provider in 1-2 weeks. Patient should followup with nephrology in 1 week. DISCHARGE CONDITION: Fair. DISCHARGE TIME: Greater than 30 minutes.
== END 2018-04-08 14:47 | disposition home health service (06) | DRG 291 ==
LOC: M ED 07:28 → M ED INP 09:45 → M PCU 13:47
PROVIDERS: ADMIT Internal Medicine; ATTEND Internal Medicine
DX: I13.0 Hypertensive heart and chronic kidney disease with heart failure and stage 1 through stage 4 chronic kidney disease, or unspecified chronic kidney disease (principal); I50.33 Acute on chronic diastolic (congestive) heart failure; J96.01 Acute respiratory failure with hypoxia; J18.9 Pneumonia, unspecified organism; E66.2 Morbid (severe) obesity with alveolar hypoventilation; E24.9 Cushing's syndrome, unspecified; N18.3 Chronic kidney disease, stage 3 (moderate); E11.22 Type 2 diabetes mellitus with diabetic chronic kidney disease; I16.0 Hypertensive urgency; R91.8 Other nonspecific abnormal finding of lung field; E87.6 Hypokalemia; E78.5 Hyperlipidemia, unspecified; I25.10 Atherosclerotic heart disease of native coronary artery without angina pectoris; G47.33 Obstructive sleep apnea (adult) (pediatric); Z85.51 Personal history of malignant neoplasm of bladder; Z79.82 Long term (current) use of aspirin; Z79.02 Long term (current) use of antithrombotics/antiplatelets; Z79.4 Long term (current) use of insulin; Z79.899 Other long term (current) drug therapy; Z90.6 Acquired absence of other parts of urinary tract; Z87.891 Personal history of nicotine dependence; E03.9 Hypothyroidism, unspecified; Z86.73 Personal history of transient ischemic attack (TIA), and cerebral infarction without residual deficits; Z95.5 Presence of coronary angioplasty implant and graft

== ENCOUNTER 2018-05-07 21:26 | Emergency (ER) | payer MEDICARE ==
[~2018-05-07] VITALS: Ht 157.5 cm; Wt 82.3 kg
[~2018-05-07 21:26] MED LIST changes: -/NITR4TASL SL; +BUME1TAB3; +CLON-412 PO; +HYDR50TA PO; +KLOR20TA42 PO; +LISI-672 PO; +LISI40TA PO; +MAGN500T2 PO; +NITR0.4S SL; +TIZA2TA PO; +TRAZ-189 PO
--- NOTE | 2018-05-07 22:02 | REP ---
Clinical: Chest pain . Comparison: 04/03/2018 . Findings: The mediastinum and cardiac silhouette are stable and within normal limits for portable technique. The lung oswald demonstrate chronic changes without acute consolidation, effusion, or pneumothorax. Skeletal structures are intact. Impression: No acute cardiopulmonary process appreciated. Electronically Signed by Maxx Oliveira MD 05/07/2018 09:53 P
--- NOTE | 2018-05-07 22:18 | ECGEPIP ---
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
[2018-05-07 22:22] LABS: BASO % 0.3 % (0.0-1.0); EOS # 0.1 10^3/uL (0.0-0.50); EOS % 1.2 % (0.0-3.0); HEMATOCRIT 32.1 % (36.0-47.0); LYMPH # 1.5 10^3/uL (1.5-4.5); MEAN CORPUSCULAR HEMOGLOBIN 29.5 pg (27.0-33.0); MEAN CORPUSCULAR HGB CONC 31.2 g/dl (32.0-36.5); MEAN CORPUSCULAR VOLUME 94.7 fl (80.0-96.0); MONO # 0.7 10^3/uL (0.0-0.8); MONO % 11.1 % (0.0-5.0); NEUTROPHILS # 3.7 10^3/uL (1.8-7.7); NEUTROPHILS % 61.4 % (36.0-66.0); PLATELET COUNT, AUTOMATED 192 10^3/uL (150-450); RED BLOOD COUNT 3.39 10^6/uL (4.00-5.40)
[2018-05-07] MEDS ORDERED: **hydrALAZINE** 50 MG TAB PO ONE (22:30)
[2018-05-07 22:50] LABS: BLOOD UREA NITROGEN 24 MG/DL (7-18); CALCIUM LEVEL 8.2 MG/DL (8.8-10.2); CARBON DIOXIDE LEVEL 29 MEQ/L (21-32); CHLORIDE LEVEL 105 MEQ/L (98-107); CPK CREATINE PHOSPHOKINASE 122 U/L (26-192); CREATININE FOR GFR 1.57 MG/DL (0.55-1.30); GLOMERULAR FILTRATION RATE 34.6 (>39); GLUCOSE, FASTING 247 MG/DL (70-100); SODIUM LEVEL 141 MEQ/L (136-145); TROPONIN I < 0.02 NG/ML (< 0.10)
[2018-05-08 00:45] VITALS: BP 194/91
[2018-05-08] MEDS ORDERED: NIFEdipine 10 MG CAP PO ONE (00:45)
[2018-05-08] MEDS ORDERED: rOPINIRole 1MG TAB PO ONE (02:15)
[2018-05-08] MEDS ORDERED: rOPINIRole 2MG TAB PO ONE (02:15)
[2018-05-08 03:03] LABS: CPK CREATINE PHOSPHOKINASE 121 U/L (26-192); MB/CK RELATIVE INDEX 2.48 (< OR =4); TROPONIN I < 0.02 NG/ML (< 0.10)
[2018-05-08] MEDS ORDERED: ISOS30TA4 PO (04:47)
[2018-05-08 05:00] VITALS: BP 124/58
--- NOTE | 2018-05-08 06:46 | ECGEPIP ---
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
[2018-05-08] MEDS ORDERED: rOPINIRole 2MG TAB PO SCH (21:00)
== END 2018-05-08 05:24 | disposition home or self-care (01) ==
LOC: M ED 21:26
DX: I16.0 Hypertensive urgency (principal); I44.0 Atrioventricular block, first degree; I25.10 Atherosclerotic heart disease of native coronary artery without angina pectoris; I11.0 Hypertensive heart disease with heart failure; Z82.49 Family history of ischemic heart disease and other diseases of the circulatory system; Z79.4 Long term (current) use of insulin; Z79.899 Other long term (current) drug therapy; Z79.82 Long term (current) use of aspirin

== ENCOUNTER 2018-05-27 20:38 | Emergency (ER) | payer MEDICARE ==
[~2018-05-27] VITALS: Ht 157.5 cm; Wt 82.7 kg
[2018-05-27 21:01] LABS: BASO % 0.3 % (0.0-1.0); EOS # 0.1 10^3/uL (0.0-0.50); HEMATOCRIT 31.6 % (36.0-47.0); HEMOGLOBIN 9.6 g/dl (12.0-15.5); LYMPH # 1.7 10^3/uL (1.5-4.5); LYMPH % 22.6 % (24.0-44.0); MEAN CORPUSCULAR HEMOGLOBIN 28.7 pg (27.0-33.0); MEAN CORPUSCULAR HGB CONC 30.4 g/dl (32.0-36.5); MEAN CORPUSCULAR VOLUME 94.3 fl (80.0-96.0); MONO # 0.7 10^3/uL (0.0-0.8); MONO % 9.9 % (0.0-5.0); NEUTROPHILS # 4.8 10^3/uL (1.8-7.7); NEUTROPHILS % 65.2 % (36.0-66.0); PLATELET COUNT, AUTOMATED 204 10^3/uL (150-450); RED BLOOD COUNT 3.35 10^6/uL (4.00-5.40); WHITE BLOOD COUNT 7.3 10^3/uL (4.0-10.0)
[2018-05-27 21:12] LABS: INR 1.02; PROTHROMBIN TIME 13.5 SECONDS (12.1-14.4)
[2018-05-27 21:49] LABS: ALBUMIN 3.4 GM/DL (3.2-5.2); ALT/SGPT 19 U/L (12-78); BILIRUBIN,TOTAL 0.3 MG/DL (0.2-1.0); BLOOD UREA NITROGEN 29 MG/DL (7-18); CALCIUM LEVEL 8.5 MG/DL (8.8-10.2); CARBON DIOXIDE LEVEL 33 MEQ/L (21-32); CHLORIDE LEVEL 103 MEQ/L (98-107); CPK CREATINE PHOSPHOKINASE 107 U/L (26-192); CREATININE FOR GFR 1.46 MG/DL (0.55-1.30); GLOMERULAR FILTRATION RATE 37.6 (>39); GLUCOSE, FASTING 120 MG/DL (70-100); LIPASE 110 U/L (73-393); MAGNESIUM LEVEL 2.2 MG/DL (1.8-2.4); MB/CK RELATIVE INDEX 2.99 (< OR =4); POTASSIUM SERUM 3.9 MEQ/L (3.5-5.1); SODIUM LEVEL 142 MEQ/L (136-145); TOTAL PROTEIN 6.8 GM/DL (6.4-8.2); TROPONIN I < 0.02 NG/ML (< 0.10)
[2018-05-27] MEDS ORDERED: CLON0.1D3 (21:53)
[2018-05-27] MEDS ORDERED: CARV25TA (21:53)
[2018-05-27] MEDS ORDERED: cloNIDine HCL 0.1 MG/24 HR PATCH TOP ONE (22:30)
[2018-05-27 22:45] VITALS: BP 201/83
[2018-05-27 23:09] VITALS: BP 201/83
--- NOTE | 2018-05-28 01:44 | ECGEPIP ---
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 : 1945 Requested By: KIERA Bhakta Order Number: [id number] Reading MD: Nirav Moses Measurements Intervals [place] Rate: 70 P: 35 [place]: 180 QRS: 0 QRSD: 114 T: 58 QT: 435 QTc: 472 Interpretive Statements SINUS RHYTHM MODERATE INTRAVENTRICULAR CONDUCTION DELAY SIMILAR TO 05/08/18 Electronically Signed On 05-28-2018 1:44:39 EDT by Nirav Moses
--- NOTE | 2018-05-28 08:54 | REP ---
Portable chest x-ray: Single view. History: Chest pain. Comparison study: May 07, 2018. Findings: EKG monitoring electrodes overlie the chest. The lungs are symmetrically aerated and clear. Pleural angles are sharp. Heart size is normal. Pulmonary vasculature is not increased. Impression: No active disease. Electronically Signed by Jair Aguilar MD 05/28/2018 08:45 A
== END 2018-05-27 23:10 | disposition home or self-care (01) ==
LOC: M ED 20:38
DX: I13.0 Hypertensive heart and chronic kidney disease with heart failure and stage 1 through stage 4 chronic kidney disease, or unspecified chronic kidney disease (principal); I50.9 Heart failure, unspecified; I25.10 Atherosclerotic heart disease of native coronary artery without angina pectoris; E11.9 Type 2 diabetes mellitus without complications; E78.5 Hyperlipidemia, unspecified; N18.3 Chronic kidney disease, stage 3 (moderate); G47.33 Obstructive sleep apnea (adult) (pediatric); E66.01 Morbid (severe) obesity due to excess calories; Z68.33 Body mass index [BMI] 33.0-33.9, adult; Z85.51 Personal history of malignant neoplasm of bladder; Z87.891 Personal history of nicotine dependence; Z86.73 Personal history of transient ischemic attack (TIA), and cerebral infarction without residual deficits; Z79.899 Other long term (current) drug therapy; Z79.82 Long term (current) use of aspirin; Z79.02 Long term (current) use of antithrombotics/antiplatelets

== ENCOUNTER 2018-06-11 21:39 | Observation (INO) | payer MEDICARE ==
[~2018-06-11] VITALS: Ht 157.5 cm; Wt 82.3 kg
[~2018-06-11 21:39] MED LIST changes: +CARV25TA PO; +CLON0.1D3
[2018-06-11] MEDS ORDERED: HYDR5TAB PO (22:04)
[2018-06-11] MEDS ORDERED: CLON0.1D3 TOP (22:07)
[2018-06-11 23:23] LABS: BASO % 0.4 % (0.0-1.0); EOS % 0.7 % (0.0-3.0); LYMPH # 1.4 10^3/uL (1.5-4.5); LYMPH % 24.7 % (24.0-44.0); MEAN CORPUSCULAR HEMOGLOBIN 28.4 pg (27.0-33.0); MEAN CORPUSCULAR HGB CONC 30.8 g/dl (32.0-36.5); MEAN CORPUSCULAR VOLUME 92.2 fl (80.0-96.0); MONO # 0.6 10^3/uL (0.0-0.8); MONO % 10.7 % (0.0-5.0); NEUTROPHILS # 3.5 10^3/uL (1.8-7.7); NEUTROPHILS % 62.8 % (36.0-66.0); PLATELET COUNT, AUTOMATED 198 10^3/uL (150-450); RED BLOOD COUNT 2.82 10^6/uL (4.00-5.40); WHITE BLOOD COUNT 5.5 10^3/uL (4.0-10.0)
[2018-06-11 23:43] LABS: BLOOD UREA NITROGEN 21 MG/DL (7-18); CALCIUM LEVEL 8.5 MG/DL (8.8-10.2); CARBON DIOXIDE LEVEL 32 MEQ/L (21-32); CHLORIDE LEVEL 105 MEQ/L (98-107); CPK CREATINE PHOSPHOKINASE 118 U/L (26-192); CREATININE FOR GFR 1.26 MG/DL (0.55-1.30); GLOMERULAR FILTRATION RATE 44.6 (>39); GLUCOSE, FASTING 137 MG/DL (70-100); MB/CK RELATIVE INDEX 2.37 (< OR =4); POTASSIUM SERUM 3.1 MEQ/L (3.5-5.1); SODIUM LEVEL 141 MEQ/L (136-145); TROPONIN I < 0.02 NG/ML (< 0.10)
[2018-06-12] VITALS (7 sets, daily range): BP systolic 147–218; BP diastolic 66–81
[2018-06-12] MEDS ORDERED: hydrALAZINE INJ 20 MG/ML VIAL IV ONE (00:30)
[2018-06-12] MEDS ORDERED: POTASSIUM CHLORIDE 10 MEQ SR TABLET PO ONE (00:30)
--- NOTE | 2018-06-12 00:36 | REP ---
Clinical: Acute chest pain . Comparison: 05/27/2018 . Findings: The mediastinum and cardiac silhouette are stable and within normal limits for portable technique. The lung oswald are clear without acute consolidation, effusion, or pneumothorax. Skeletal structures are intact. Impression: No acute cardiopulmonary process appreciated. Electronically Signed by Maxx Oliveira MD 06/12/2018 12:28 A
[2018-06-12] MEDS ORDERED: rOPINIRole 2MG TAB PO ONE (01:00)
[2018-06-12] MEDS ORDERED: ONDANSETRON 4MG/2ML VIAL (J2405) IV ONE (01:00)
[2018-06-12] MEDS ORDERED: CLON0.1D3 TD (01:38)
[2018-06-12] MEDS ORDERED: GLIP10TA18 PO (01:43)
[2018-06-12] MEDS ORDERED: TIZA2TAB4 PO (01:43)
[2018-06-12] MEDS ORDERED: ROPI1TAB PO (01:44)
[2018-06-12] MEDS ORDERED: ISOS30TA4 PO (01:44)
[2018-06-12] MEDS ORDERED: LISI40TA PO (01:44)
[2018-06-12] MEDS ORDERED: HYDR10TAB PO (01:44)
[2018-06-12] MEDS ORDERED: MOM 30ML SUSPENSION UDC PO PRN (01:45)
[2018-06-12] MEDS ORDERED: MAALOX 30 ML SUSP *UDC PO PRN (01:45)
[2018-06-12] MEDS ORDERED: ACETAMINOPHEN TAB 650MG DOSE (2X325MG) PO PRN (01:45)
[2018-06-12] MEDS ORDERED: FUROSEMIDE 100 MG/10 ML VIAL (J1940) IV SCH (02:00)
[2018-06-12] MEDS ORDERED: amLODIPine 5 MG TAB PO ONE (03:15)
[2018-06-12] MEDS: ONDANSETRON 4MG/2ML VIAL (J2405) IV PRN ×3 (03:30→16:18)
[2018-06-12] MEDS ORDERED: tiZANidine 4 MG TAB PO PRN (04:30)
[2018-06-12] MEDS ORDERED: amLODIPine 10 MG TAB PO ONE (04:30)
--- NOTE | 2018-06-12 04:43 | HPEPDOC ---
General Date of Admission June 11, 2018 at 21:40 Chief Complaint The patient is a 73-year-old female admitted with a reason for visit of Hyperten sive Urgency, Anemia. Source: Patient, Family, RN/, Old records History of Present Illness Mr. Ng is 73 years old man with multiple medical comorbidities. He presented to ER with c/o generalized weakness, SOB and increasing leg edema for a week. De nies chest pain, dizziness or syncope. Pt has diastolic heart failure and morbid obesity. He was treated two months ago fo heart failure as inpatient. Pt also has hx/o chronic anemia. Denies any recent bleeding or melena. In the ER, pt was noted to have very high BP. Systolic BP in the range of 200. He also had slight drop in Hb 8.0 (previously 9.6). CXR: no acute findings. Home Medications Scheduled Aspirin (Aspirin EC) 81 Mg Tab, 81 MG PO DAILY, (Reported) Carvedilol (Carvedilol) 25 Mg Tablet, 25 MG PO BID, (Reported) Cholecalciferol (Vitamin D3) (Vitamin D3) 2,000 Unit Cap, 2,000 UNIT PO BID, (Reported) Clonidine (Clonidine) 0.1 Mg Patch.tdwk, 0.1 MG TD 1XWK, (Reported) MONDAYS Clopidogrel Bisulfate (Clopidogrel) 75 Mg Tab, 75 MG PO DAILY, (Reported) Glipizide (Glipizide ER) 10 Mg Tab.er.24, 10 MG PO BID, (Reported) Hydralazine HCl (Hydralazine HCl) 10 Mg Tablet, 30 MG PO TID, (Reported) Insulin Human Lispro (Novolog) 100 U/Ml Inj, 1 DOSE SC AC, (Reported) PER SLIDING SCALE, 20-25 UNITS Isosorbide Mononitrate (Isosorbide Mononitrate ER) 30 Mg Tab.er.24h, 30 MG PO QHS, (Reported) Lisinopril (Lisinopril) 40 Mg Tablet, 40 MG PO DAILY, (Reported) Magnesium Oxide (Magnesium Oxide) 500 Mg Tab, 500 MG PO BID, (Reported) Mifepristone (Korlym) 300 Mg Tab, 300 MG PO BID, (Reported) Potassium Chloride (Klor-Con M20) 20 Meq Tabcr, 40 MEQ PO BID, (Reported) Pravastatin Sodium (Pravastatin Sodium) 40 Mg Tab, 40 MG PO QHS, (Reported) Ropinirole HCl (Ropinirole HCl) 1 Mg Tablet, 2 MG PO QHS, (Reported) Spironolactone (Spironolactone) 50 Mg Tab, 50 MG PO BID, (Reported) Torsemide (Torsemide) 20 Mg Tab, 40 MG PO BID, (Reported) Trazodone HCl (Trazodone HCl) 100 Mg Tab, 100 MG PO QHS, (Reported) Scheduled PRN Tizanidine HCl (Tizanidine HCl) 2 Mg Tablet, 2 MG PO TID PRN for MUSCLE SPASMS, (Reported) Allergies Coded Allergies: No Known Allergies (Unverified , 05/27/18) Past Medical History Medical History 1. Chronic diastolic CHF. 2. Chronic kidney disease (CKD), stage III. 3. Insulin-dependent diabetes mellitus (IDDM) 2. 4. Hypertension. 5. Hyperlipidemia. 6. Coronary artery disease. 7. History of transient ischemic attacks (TIA). 8. Obstructive sleep apnea (ALEX), on continuous positive airway pressure (CPAP). 9. Obesity hypoventilation syndrome. 10. Morbid obesity. 11. History of bladder cancer status post radical cystectomy and urostomy. Surgical History Hernia sx, Left knee sx, Cataract removal Family History Significant Family History: No pertinent family hx Social History * Smoker: former Smoker Alcohol: Denies Drugs: denies A-FIB/CHADSVASC A-FIB History Current/History of A-Fib/PAF?: No Review of Systems Constitutional: Reports: Weakness, Fatigue; Denies: Chills, Fever Eyes: Denies: Pain ENT: Denies: Head Aches Skin: Denies: Rash Pulmonary: Reports: Dyspnea; Denies: Cough Cardiovascular: Reports: Edema; Denies: Chest Pain, Palpitations Gastrointestinal: Denies: Nausea, Vomiting Genitourinary: Denies: Dysuria Neurological: Reports: Weakness Psych: Reports: Mood Normal; Denies: Anxiety Physical Examination General Exam: Positive: Alert, Cooperative, No Acute Distress Eye Exam: Positive: PERRLA ENT Exam: Positive: Atraumatic Neck Exam: Positive: Supple; Negative: JVD Chest Exam: Positive: Clear to auscultation, Normal air movement Heart Exam: Positive: Rate Normal, Regular Rhythm Abdomen Exam: Positive: Normal bowel sounds, Soft; Negative: Tenderness Extremity Exam: Positive: Edema (3+ leg edema b/l) Skin Exam: Negative: Rash Neuro Exam: Positive: Normal Speech, Strength at 5/5 X4 ext Psych Exam: Positive: Mental status NL, Mood NL Vital Signs Vital Signs Date Time Temp Pulse Resp B/P (MAP) Pulse Ox O2 Delivery O2 Flow Rate FiO2 06/12/18 03:29 62 218/74 06/12/18 02:58 98.6 16 98 1.0 06/11/18 21:39 Room Air Laboratory Data Labs 24H Laboratory Tests 2 06/11/18 23:07: Immature Granulocyte % (Auto) 0.7, White Blood Count 5.5, Red Blood Count 2.82L, Hemoglobin 8.0L, Hematocrit 26.0L, Mean Corpuscular Volume 92.2, Mean Corpusc ular Hemoglobin 28.4, Mean Corpuscular Hemoglobin Concent 30.8L, Red Cell Distribution Width 13.2, Platelet Count 198, Neutrophils (%) (Auto) 62.8, Lymphocytes (%) (Auto) 24.7, Monocytes (%) (Auto) 10.7H, Eosinophils (%) (Auto) 0.7, Basophils (%) (Auto) 0.4, Neutrophils # (Auto) 3.5, Lymphocytes # (Auto) 1.4L, Monocytes # (Auto) 0.6, Eosinophils # (Auto) 0.0, Basophils # (Auto) 0.0, Nucleated Red Blood Cells % (auto) 0.0, Anion Gap 4L, Glomerular Filtration Rate 44.6, Blood Urea Nitrogen 21H, Creatinine 1.26, Sodium Level 141, Potassium Level 3.1L, Chloride Level 105, Carbon Dioxide Level 32, Calcium Level 8.5L, Total Creatine Kinase 118, Creatine Kinase MB 3.0, Creatine Kinase MB Relative I ndex 2.37, Troponin I < 0.02 06/12/18 03:22: KI-Vmu-F-Type Natriuretic Peptide 824H CBC/BMP Laboratory Tests 06/11/18 23:07 Red Blood Count 2.82 L, Mean Corpuscular Volume 92.2, Mean Corpuscular Hemoglobin 28.4, Mean Corpuscular Hemoglobin Concent 30.8 L, Red Cell Distribution Width 13.2, Neutrophils (%) (Auto) 62.8, Lymphocytes (%) (Auto) 24.7, Monocytes (%) (Auto) 10.7 H, Eosinophils (%) (Auto) 0.7, Basophils (%) (Auto) 0.4, Neutrophils # (Auto) 3.5, Lymphocytes # (Auto) 1.4 L, Monocytes # (Auto) 0.6, Eosinophils # (Auto) 0.0, Basophils # (Auto) 0.0, Calcium Level 8.5 L, Total Creatine Kinase 118 Assessment/Plan 1. HTN Urgency with increasing leg edema without Pulmonary Edema, hx/o Diastolic Heart Failure - Lasix 60 mg IVP q8h, I/O, daily wt - Continue home meds; adjust slow. Pt has resistant HTN on multiple meds; likely chronically elevated BP. Previous studies on aldosterone and renin normal. - Tele; troponins 2. Acute on Chronic Anemia - send for FOBT - Monitor h/h - Continue anti-platelet therapy for now; no overt sign of bleeding 3. Hypokalemia - supplement and monitor Plan / VTE VTE Prophylaxis Ordered?: No (early ambulation, early discharge) VTE Exclusion Mechanical Proph: Low Risk for VTE VTE Exclusion Pharmacological: At Low Risk for VTE MAEGAN DE SANTIAGO MD June 12, 2018 04:43
[2018-06-12] MEDS: rOPINIRole 1MG TAB PO SCH ×2 (04:51→20:29)
[2018-06-12] MEDS: ISOSORBIDE MON. (IMDUR) 30 MG XR TAB PO SCH ×2 (05:04→20:29)
[2018-06-12] MEDS: traZODone 100 MG TAB PO SCH ×2 (05:04→20:29)
[2018-06-12] MEDS: PRAVASTATIN 20 MG TAB PO SCH ×2 (05:12→20:29)
[2018-06-12 05:50] LABS: HEMATOCRIT 26.3 % (36.0-47.0); HEMOGLOBIN 8.2 g/dl (12.0-15.5)
[2018-06-12 06:15] LABS: TROPONIN I < 0.02 NG/ML (< 0.10)
[2018-06-12 07:55] LABS: BLOOD UREA NITROGEN 18 MG/DL (7-18); CALCIUM LEVEL 8.6 MG/DL (8.8-10.2); CARBON DIOXIDE LEVEL 34 MEQ/L (21-32); CHLORIDE LEVEL 104 MEQ/L (98-107); CREATININE FOR GFR 1.17 MG/DL (0.55-1.30); GLOMERULAR FILTRATION RATE 48.5 (>39); GLUCOSE, FASTING 89 MG/DL (70-100); MAGNESIUM LEVEL 2.2 MG/DL (1.8-2.4); SODIUM LEVEL 143 MEQ/L (136-145)
[2018-06-12 08:14] LABS: BASO % 0.4 % (0.0-1.0); EOS # 0.1 10^3/uL (0.0-0.50); LYMPH # 1.6 10^3/uL (1.5-4.5); LYMPH % 21.2 % (24.0-44.0); MEAN CORPUSCULAR HEMOGLOBIN 28.4 pg (27.0-33.0); MEAN CORPUSCULAR VOLUME 91.6 fl (80.0-96.0); MONO # 0.8 10^3/uL (0.0-0.8); MONO % 10.8 % (0.0-5.0); NEUTROPHILS # 4.9 10^3/uL (1.8-7.7); NEUTROPHILS % 66.3 % (36.0-66.0); PLATELET COUNT, AUTOMATED 219 10^3/uL (150-450); RED BLOOD COUNT 2.96 10^6/uL (4.00-5.40); WHITE BLOOD COUNT 7.3 10^3/uL (4.0-10.0)
[2018-06-12] MEDS ORDERED: POTASSIUM CHLORIDE 10 MEQ SR TABLET PO SCH (09:00)
[2018-06-12] MEDS: ASPIRIN 81 MG ENTERIC TAB PO SCH (09:24)
[2018-06-12] MEDS: CLOPIDOGREL 75 MG TAB PO SCH (09:24)
[2018-06-12] MEDS: **hydrALAZINE** 10 MG TAB PO SCH ×3 (09:24→20:28)
[2018-06-12] MEDS: SPIRONOLACTONE 50 MG TAB PO SCH ×2 (09:24→20:28)
[2018-06-12] MEDS: LISINOPRIL 40 MG TAB PO SCH (09:24)
[2018-06-12] MEDS: POTASSIUM CHLORIDE 10 MEQ SR TABLET PO SCH ×2 (09:25→20:29)
[2018-06-12] MEDS: CARVedilol 12.5 MG TAB PO SCH ×2 (09:25→20:28)
[2018-06-12] MEDS: MAGNESIUM OXIDE 400 MG TAB (MAG-OX) PO SCH ×2 (09:25→20:29)
[2018-06-12] MEDS: TORSEMIDE 20 MG TAB PO SCH ×2 (09:34→16:18)
--- NOTE | 2018-06-12 11:52 | IPNPDOC ---
Date Seen The patient was seen on 06/12/18. Progress Note SUBJECTIVE: Patient was seen and examined this morning. She currently states that she is feeling well. She denies any increased shortness of breath. She states she feels close to her baseline. She denies any headaches or changes in vision. She has stated that yesterday before coming in that she had generalized weakness however, she states that this is her baseline. She denies any nausea, vomiting, diarrhea or constipation OBJECTIVE PHYSICAL EXAMINATION: VITAL SIGNS: Please see below. GENERAL: Awake, alert, and oriented. Appears in no acute distress. Lying in bed comfortably. HEENT: Atrumatic normocephalic. Eyes are nonicteric. trachea is midline. Nasal cannula is in place CARDIOVASCULAR: Normal S1, S2. Regular rate and rhythm. No clicks, rubs, or murmurs. RESPIRATORY: Clear vesicular breath sound bilaterally. Slighty decreased breath sounds in the bases bilaterally. Good respiratory effort. No wheezes, rhonci, or rales. No crackles ABDOMINAL: Obese, soft, nondistended, nontender to palpation throughout. Positive bowel sounds EXTREMITIES: Mild 1-2 mm pitting edema in bilateral lower extremities. Full and equal pulses in bilateral upper and lower extremities NEUROLOGICAL: No focal neurological deficits noted. CN II-XII grossly intact. Motor strength testing of upper and lower extremities 5/5 bilaterally. PSYCHOLOGICAL: Mood and affect appear appropriate LABORATORY DATA, IMAGING STUDIES, MICROBIOLOGY: Please see below. DVT prophylaxis ordered?: YES ASSESSMENT AND PLAN: Patient is a 73 year old female who presented to the [facility] ER with complaint of generalized weakness, shortness of breath, and increased lower extremity edema. She was found to be hypertensive and slightly hyervolemic PROBLEMS: 1. HFpEF -Patients last echocardiogram was completed on 04/02/18 which demonstrated an EF of 75% -On exam she does not appear grossly hypervolemic. She has received IV lasix. Will transition to patients home PO dose of torsemide. -PT Home Safety Eval for possible D/C tomorrow 2. Acute on Chronic Anemia -Patient denies shortness of breath with exertion. She states that her shortness of breath has improved -Will follow-up on FOBT -Monitor H&H. 3. Hypokalemia -Likely secondary to potassium wasting diuretics -Will continue to monitor. -40 mg Potassium Chloride BID 3. Hypertensive Urgency -Patient is chronically hypertensive and resistant to medications. -She is denying any neurological symptoms and has no sign of end organ damage to suggest hypertensive emergency. She is continued on her home medications 4. CKD Stage III -Currently stable 5. History of bladder cancer s/p radical cystectomy and urostomy -Currently stable. Urostomy site is nonerythematous and appears clean DISPOSITION: - Patient will be continued on home diuretic and likely be discharged in 24-48 hours A-FIB/CHADSVASC A-FIB History Current/History of A-Fib/PAF?: No VS, I&O, 24H, Fishbone Vital Signs/I&O Vital Signs Date Time Temp Pulse Resp B/P (MAP) Pulse Ox O2 Delivery O2 Flow Rate FiO2 06/12/18 09:55 94 06/12/18 09:25 62 190/81 06/12/18 08:00 98.9 18 1.0 06/11/18 21:39 Room Air Laboratory Data 24H LABS Laboratory Tests 2 06/11/18 23:07: Immature Granulocyte % (Auto) 0.7, White Blood Count 5.5, Red Blood Count 2.82L, Hemoglobin 8.0L, Hematocrit 26.0L, Mean Corpuscular Volume 92.2, Mean Corpuscular Hemoglobin 28.4, Mean Corpuscular Hemoglobin Concent 30.8L, Red Cell Distribution Width 13.2, Platelet Count 198, Neutrophils (%) (Auto) 62.8, Lymphocytes (%) (Auto) 24.7, Monocytes (%) (Auto) 10.7H, Eosinophils (%) (Auto) 0.7, Basophils (%) (Auto) 0.4, Neutrophils # (Auto) 3.5, Lymphocytes # (Auto) 1.4L, Monocytes # (Auto) 0.6, Eosinophils # (Auto) 0.0, Basophils # (Auto) 0.0, Nucleated Red Blood Cells % (auto) 0.0, Anion Gap 4L, Glomerular Filtration Rate 44.6, Blood Urea Nitrogen 21H, Creatinine 1.26, Sodium Level 141, Potassium Level 3.1L, Chloride Level 105, Carbon Dioxide Level 32, Calcium Level 8.5L, Total Creatine Kinase 118, Creatine Kinase MB 3.0, Creatine Kinase MB Relative Index 2.37, Troponin I < 0.02 06/12/18 03:22: ZJ-Ocu-B-Type Natriuretic Peptide 824H 06/12/18 05:23: Immature Granulocyte % (Auto) 0.3, White Blood Count 7.3, Red Blood Count 2.96L, Hemoglobin 8.2L, Hematocrit 26.3L, Mean Corpuscular Volume 91.6, Mean Corpuscular Hemoglobin 28.4, Mean Corpuscular Hemoglobin Concent 31.0L, Red Cell Distribution Width 13.2, Platelet Count 219, Neutrophils (%) (Auto) 66.3H, Lymphocytes (%) (Auto) 21.2L, Monocytes (%) (Auto) 10.8H, Eosinophils (%) (Auto) 1.0, Basophils (%) (Auto) 0.4, Neutrophils # (Auto) 4.9, Lymphocytes # (Auto) 1.6, Monocytes # (Auto) 0.8, Eosinophils # (Auto) 0.1, Basophils # (Auto) 0.0, Nucleated Red Blood Cells % (auto) 0.0, Anion Gap 5L, Glomerular Filtration Rate 48.5, Blood Urea Nitrogen 18, Creatinine 1.17, Sodium Level 143, Potassium Level 3.0L, Chloride Level 104, Carbon Dioxide Level 34H, Calcium Level 8.6L, Troponin I < 0.02, Magnesium Level 2.2 CBC/BMP Laboratory Tests 06/11/18 23:07 Red Blood Count 2.82 L, Mean Corpuscular Volume 92.2, Mean Corpuscular Hemoglobin 28.4, Mean Corpuscular Hemoglobin Concent 30.8 L, Red Cell Distribution Width 13.2, Neutrophils (%) (Auto) 62.8, Lymphocytes (%) (Auto) 24.7, Monocytes (%) (Auto) 10.7 H, Eosinophils (%) (Auto) 0.7, Basophils (%) (Auto) 0.4, Neutrophils # (Auto) 3.5, Lymphocytes # (Auto) 1.4 L, Monocytes # (Auto) 0.6, Eosinophils # (Auto) 0.0, Basophils # (Auto) 0.0, Calcium Level 8.5 L, Total Creatine Kinase 118 06/12/18 05:23 Red Blood Count 2.96 L, Mean Corpuscular Volume 91.6, Mean Corpuscular Hemoglobin 28.4, Mean Corpuscular Hemoglobin Concent 31.0 L, Red Cell Distribution Width 13.2, Neutrophils (%) (Auto) 66.3 H, Lymphocytes (%) (Auto) 2 1.2 L, Monocytes (%) (Auto) 10.8 H, Eosinophils (%) (Auto) 1.0, Basophils (%) (Auto) 0.4, Neutrophils # (Auto) 4.9, Lymphocytes # (Auto) 1.6, Monocytes # (Auto) 0.8, Eosinophils # (Auto) 0.1, Basophils # (Auto) 0.0, Calcium Level 8.6 L GME ATTESTATION GME ATTESTATION My faculty preceptor for this patient encounter was physically present during the encounter and was fully available. All aspects of the patient interview, examination, medical decision making process, and medical care plan development were reviewed and approved by the faculty preceptor. The faculty preceptor is aware and concurs with the plan as stated in the body of this note and will attest to such by his/her cosignature. ATTENDING NOTE I, Pushpa Cristina, have both independently examined this patient as well as reviewed the documentation. I have discussed in detail with the resident the findings and plan of treatment as documented by the resident. I agree with their findings and treatment plan. I will continue to follow the patient and offer further guidance to the patients care as necessary during this hospital stay. RICHARD YOUNG DO June 12, 2018 11:52 PUSHPA CRISTINA MD June 12, 2018 14:30
[2018-06-12 12:08] LABS: HEMATOCRIT 27.3 % (36.0-47.0); HEMOGLOBIN 8.1 g/dl (12.0-15.5); MEAN CORPUSCULAR HEMOGLOBIN 27.5 pg (27.0-33.0); MEAN CORPUSCULAR HGB CONC 29.7 g/dl (32.0-36.5); MEAN CORPUSCULAR VOLUME 92.5 fl (80.0-96.0); PLATELET COUNT, AUTOMATED 220 10^3/uL (150-450); RED BLOOD COUNT 2.95 10^6/uL (4.00-5.40); WHITE BLOOD COUNT 8.4 10^3/uL (4.0-10.0)
[2018-06-12 12:49] LABS: CALCIUM LEVEL 8.6 MG/DL (8.8-10.2); CREATININE FOR GFR 1.36 MG/DL (0.55-1.30); GLOMERULAR FILTRATION RATE 40.8 (>39); POTASSIUM SERUM 3.4 MEQ/L (3.5-5.1)
[2018-06-12] MEDS ORDERED: DEXTROSE 50% 50 ML SYRINGE IV PRN (15:15)
[2018-06-12] MEDS ORDERED: GLUCAGON FOR INJ 1 MG VIAL (J1610) SC PRN (15:15)
[2018-06-12] MEDS ORDERED: GLUCOSE 4 GM CHEW TABLET PO PRN (15:15)
[2018-06-12] MEDS ORDERED: METOCLOPRAMIDE INJ 10MG/2ML VIAL (J2765) IV PRN (17:15)
[2018-06-12] MEDS: HumaLOG INSULIN (NovoLOG) PER UNIT SC SCH (18:31)
--- NOTE | 2018-06-12 20:23 | ECGEPIP ---
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
[2018-06-12] MEDS ORDERED: RAMELTEON 8 MG TAB (ROZEREM) PO SCH (21:00)
[2018-06-12] MEDS ORDERED: HumaLOG INSULIN (NovoLOG) PER UNIT SC SCH (21:00)
[2018-06-13] MEDS ORDERED: ANALGESIC BALM CRM 120 GM TOP PRN
[2018-06-13 02:00] VITALS: BP 108/53
[2018-06-13] MEDS ORDERED: rOPINIRole 2MG TAB PO ONE (02:15)
[2018-06-13 06:00] VITALS: BP 139/65
[2018-06-13 08:21] LABS: HEMATOCRIT 24.3 % (36.0-47.0); HEMOGLOBIN 7.4 g/dl (12.0-15.5); MEAN CORPUSCULAR HEMOGLOBIN 27.9 pg (27.0-33.0); MEAN CORPUSCULAR HGB CONC 30.5 g/dl (32.0-36.5); MEAN CORPUSCULAR VOLUME 91.7 fl (80.0-96.0); PLATELET COUNT, AUTOMATED 194 10^3/uL (150-450); RED BLOOD COUNT 2.65 10^6/uL (4.00-5.40); WHITE BLOOD COUNT 6.4 10^3/uL (4.0-10.0)
[2018-06-13 09:00] VITALS: BP 118/48
[2018-06-13] MEDS: **hydrALAZINE** 10 MG TAB PO SCH (09:00)
[2018-06-13] MEDS: LISINOPRIL 40 MG TAB PO SCH (09:00)
[2018-06-13] MEDS: CARVedilol 12.5 MG TAB PO SCH (09:00)
[2018-06-13] MEDS: HumaLOG INSULIN (NovoLOG) PER UNIT SC SCH ×2 (09:26→13:08)
[2018-06-13] MEDS: POTASSIUM CHLORIDE 10 MEQ SR TABLET PO SCH (09:27)
[2018-06-13] MEDS: ASPIRIN 81 MG ENTERIC TAB PO SCH (09:27)
[2018-06-13] MEDS: CLOPIDOGREL 75 MG TAB PO SCH (09:27)
[2018-06-13] MEDS: MAGNESIUM OXIDE 400 MG TAB (MAG-OX) PO SCH (09:28)
[2018-06-13 10:00] VITALS: BP 119/58
[2018-06-13 10:05] LABS: CALCIUM LEVEL 8.4 MG/DL (8.8-10.2); CREATININE FOR GFR 2.26 MG/DL (0.55-1.30); GLOMERULAR FILTRATION RATE 22.7 (>39); POTASSIUM SERUM 3.9 MEQ/L (3.5-5.1)
[2018-06-13] MEDS ORDERED: TORS20TA2 PO (10:42)
[2018-06-13] MEDS ORDERED: REGL5TAB2 PO (10:44)
[2018-06-13] MEDS ORDERED: ROZE8TAB16 PO (12:08)
[2018-06-13] MEDS ORDERED: SPIR50TA4 PO (12:09)
--- NOTE | 2018-06-13 16:46 | DS.PDOC ---
Discharge Summary General Date of Admission June 11, 2018 at 21:40 Date of Discharge 06/13/18 Primary Care Physician: [facility] Attending Physician: PUSHPA GUAN MD Discharge Summary PROCEDURES PERFORMED DURING STAY: [None]. ADMITTING DIAGNOSES: 1. Hypertensive Urgency with increasing leg edema 2. Acute on Chronic Anemia 3. Hypokalemia 4. CKD Stage III DISCHARGE DIAGNOSES: 1. Hypertensive Urgency 2. HFpEF 3. Hypokalemia 4. CKD Stage III COMPLICATIONS/CHIEF COMPLAINT: Hypertensive Urgency, Anemia. HISTORY OF PRESENT ILLNESS: Patient is a 73 year old female with a past medical history significant for dee syndrome, chronic kidney disease stage three, HFpEF, and chronic anemia who presented with complaint of increased leg swelling and hypertension. Patient had also complained of nausea for the past week. In the ER the patient had received a chest x-ray which did not demonstrate any acute findings. Her laboratory findings in the ER demonstrated an elevated BNP. The hospitalist service was consulted and the patient was admitted for further evaluation and management HOSPITAL COURSE: Once admitted, it was felt that the patient was likely in fluid over load. She received IV lasix. She has responded well and her extremity swelling had decreased. The patient was transitioned back to her oral torsemide. In addition, she was having some nausea, she received Reglan and noted improvement. 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 The medication was held as a main side effect is hypertension. The patients blood pressure had come down. It was felt that her HTN was likely secondary to her medication DISCHARGE MEDICATIONS: Please see below. ALLERGIES: Please see below. PHYSICAL EXAMINATION ON DISCHARGE: VITAL SIGNS: Please see below. GENERAL: Awake, alert and oriented. Appears in no acute distress. Sitting comfortably in exam room HEENT: Atrumatic normocephalic. Eyes are nonicteric. Dee appearance NECK: No palpable lymphadenopathy CARDIOVASCULAR EXAMINATION: Normal S1, S2. Regular rate and rhythm. No clicks, rubs, or murmurs RESPIRATORY EXAMINATION: Clear vesicular breath sounds bilaterally. No wheezes, rhonci, or rales ABDOMINAL EXAMINATION: Obese, soft, nondistended. Nontender to palpation throughout. Positive bowel sounds EXTREMITIES: 1-2mm pitting edema bilaterally. Full and equal pulses in bilateral upper and lower extremities SKIN: No rashes or lesions NEUROLOGICAL EXAMINATION: No focal neurological deficits PSYCHIATRIC EXAMINATION: Mood and affect appear appropriate LABORATORY DATA: Please see below. IMAGING: Clinical: Acute chest pain . Comparison: 05/27/2018 . Findings: The mediastinum and cardiac silhouette are stable and within normal limits for portable technique. The lung oswald are clear without acute consolidation, effusion, or pneumothorax. Skeletal structures are intact. Impression: No acute cardiopulmonary process appreciated. Electronically Signed by Maxx Oliveira MD 06/12/2018 12:28 A PROGNOSIS: GOOD ACTIVITY: [As tolerated]. DIET: Consistent carbohydrate DISCHARGE PLAN: Patient is to be discharged home. She is to follow-up with her senior python developer in 1-2 weeks regarding management of her cushings syndrome. She is to follow up with her PCP and nephrology in regards to her hypertension. DISPOSITION: 01 Home, Self-Care. DISCHARGE CONDITION: [Stable]. TIME SPENT ON DISCHARGE: Greater than 30 minutes. Vital Signs/I&Os Vital Signs Date Time Temp Pulse Resp B/P (MAP) Pulse Ox O2 Delivery O2 Flow Rate FiO2 06/13/18 10:00 98.6 60 17 119/58 (78) 97 06/12/18 22:00 1.0 06/11/18 21:39 Room Air I&O- Last 24 Hours up to 6 AM 06/13/18 06:00 Intake Total 2195 ml Output Total 1500 ml Balance 695 ml Laboratory Data Labs 24H Laboratory Tests 2 06/12/18 17:07: Bedside Glucose (Misc Panel) 164H 06/12/18 19:47: Bedside Glucose (Misc Panel) 289H 06/13/18 04:57: Bedside Glucose (Misc Panel) 144H 06/13/18 08:08: Nucleated Red Blood Cells % (auto) 0.0, Anion Gap 4L, Glomerular Filtration Rate 22.7L, Blood Urea Nitrogen 29#H, Creatinine 2.26#H, Sodium Level 139, Potassium Level 3.9, Chloride Level 101, Carbon Dioxide Level 34H, Calcium Level 8.4L 06/13/18 11:44: Bedside Glucose (Misc Panel) 222H CBC/BMP Laboratory Tests 06/13/18 08:08 Red Blood Count 2.65 L, Mean Corpuscular Volume 91.7, Mean Corpuscular Hemoglobin 27.9, Mean Corpuscular Hemoglobin Concent 30.5 L, Red Cell Distribution Width 13.2, Calcium Level 8.4 L FSBS Laboratory Tests Test 06/12/18 17:07 06/12/18 19:47 06/13/18 04:57 06/13/18 11:44 Range/Units Bedside Glucose (Misc Panel) 164 289 144 222 83-110 MG/DL Discharge Medications Scheduled Aspirin (Aspirin EC) 81 Mg Tab, 81 MG PO DAILY, (Reported) Carvedilol (Carvedilol) 25 Mg Tablet, 25 MG PO BID, (Reported) Cholecalciferol (Vitamin D3) (Vitamin D3) 2,000 Unit Cap, 2,000 UNIT PO BID, (Reported) Clonidine (Clonidine) 0.1 Mg Patch.tdwk, 0.1 MG TD 1XWK, (Reported) MONDAYS Clopidogrel Bisulfate (Clopidogrel) 75 Mg Tab, 75 MG PO DAILY, (Reported) Glipizide (Glipizide ER) 10 Mg Tab.er.24, 10 MG PO BID, (Reported) Insulin Human Lispro (Novolog) 100 U/Ml Inj, 1 DOSE SC AC, (Reported) PER SLIDING SCALE, 20-25 UNITS Isosorbide Mononitrate (Isosorbide Mononitrate ER) 30 Mg Tab.er.24h, 30 MG PO QHS, (Reported) Magnesium Oxide (Magnesium Oxide) 500 Mg Tab, 500 MG PO BID, (Reported) Potassium Chloride (Klor-Con M20) 20 Meq Tabcr, 40 MEQ PO BID, (Reported) Pravastatin Sodium (Pravastatin Sodium) 40 Mg Tab, 40 MG PO QHS, (Reported) Ropinirole HCl (Ropinirole HCl) 1 Mg Tablet, 2 MG PO QHS, (Reported) Spironolactone (Spironolactone) 50 Mg Tab, 50 MG PO BID Resume on 06/14/2018 Torsemide (Torsemide) 20 Mg Tab, 20 MG PO BID Resume on 06/14/2018 Trazodone HCl (Trazodone HCl) 100 Mg Tab, 100 MG PO QHS, (Reported) Scheduled PRN Metoclopramide Hcl (Reglan) 5 Mg Tablet, 5 MG PO TIDP PRN for NAUSEA 1 hour prior to procedure Tizanidine HCl (Tizanidine HCl) 2 Mg Tablet, 2 MG PO TID PRN for MUSCLE SPASMS, (Reported) Allergies Coded Allergies: No Known Allergies (Unverified , 05/27/18) GME ATTESTATION GME ATTESTATION My faculty preceptor for this patient encounter was physically present during the encounter and was fully available. All aspects of the patient interview, examination, medical decision making process, and medical care plan development were reviewed and approved by the faculty preceptor. The faculty preceptor is aware and concurs with the plan as stated in the body of this note and will attest to such by his/her cosignature. ATTENDING NOTE I, Pushpa Guan, have both independently examined this patient as well as reviewed the documentation. I have discussed in detail with the resident the findings and plan of treatment as documented by the resident. I agree with their findings and treatment plan. I will continue to follow the patient and offer further guidance to the patients care as necessary during this hospital stay. RICHARD YOUNG DO June 13, 2018 16:46 PUSHPA GUAN MD June 13, 2018 16:51
== END 2018-06-13 13:53 | disposition home or self-care (01) ==
LOC: M ED 21:39 → M ED INP 21:40 → M PCU 06-12 02:46 → M MSPAV 06-12 17:51
PROVIDERS: ADMIT Internal Medicine; ATTEND Internal Medicine
DX: I16.0 Hypertensive urgency (principal); I50.32 Chronic diastolic (congestive) heart failure; R60.0 Localized edema; D64.9 Anemia, unspecified; E87.6 Hypokalemia; N18.3 Chronic kidney disease, stage 3 (moderate); T38.6X5A Adverse effect of antigonadotrophins, antiestrogens, antiandrogens, not elsewhere classified, initial encounter; R11.0 Nausea; R06.02 Shortness of breath; E11.22 Type 2 diabetes mellitus with diabetic chronic kidney disease; E78.5 Hyperlipidemia, unspecified; I25.10 Atherosclerotic heart disease of native coronary artery without angina pectoris; G47.33 Obstructive sleep apnea (adult) (pediatric); Z85.51 Personal history of malignant neoplasm of bladder; E24.9 Cushing's syndrome, unspecified; Z79.899 Other long term (current) drug therapy; Z79.82 Long term (current) use of aspirin; Z79.02 Long term (current) use of antithrombotics/antiplatelets; Z79.4 Long term (current) use of insulin; Z87.891 Personal history of nicotine dependence
CPT/HCPCS: 36415; 71045; 80048; 82550; 82553; 83735; 83880; 84484; 85025; 85027; 93005; 93041; 94760; 96374; 96375; 96376; 97161; 99285; G0378; J1940; J2405; J2765

== ENCOUNTER 2018-06-20 15:15 | Emergency (ER) | payer MEDICARE ==
[~2018-06-20] VITALS: Ht 157.5 cm; Wt 81.8 kg
[~2018-06-20 15:15] MED LIST changes: +CLON0.1D3 TD; +CLON0.1D3 TOP; +GLIP10TA18 PO; +HYDR5TAB PO; +REGL5TAB2 PO; +ROPI1TAB PO; +ROZE8TAB16 PO; +TIZA2TAB4 PO
[2018-06-20 16:07] LABS: BASO % 0.3 % (0.0-1.0); EOS # 0.1 10^3/uL (0.0-0.50); HEMOGLOBIN 8.1 g/dl (12.0-15.5); LYMPH # 1.5 10^3/uL (1.5-4.5); LYMPH % 25.3 % (24.0-44.0); MEAN CORPUSCULAR HEMOGLOBIN 26.8 pg (27.0-33.0); MEAN CORPUSCULAR VOLUME 89.4 fl (80.0-96.0); MONO # 0.6 10^3/uL (0.0-0.8); MONO % 9.5 % (0.0-5.0); NEUTROPHILS # 3.7 10^3/uL (1.8-7.7); NEUTROPHILS % 63.6 % (36.0-66.0); PLATELET COUNT, AUTOMATED 234 10^3/uL (150-450); RED BLOOD COUNT 3.02 10^6/uL (4.00-5.40); WHITE BLOOD COUNT 5.8 10^3/uL (4.0-10.0)
--- NOTE | 2018-06-20 16:29 | REP ---
CT Head without contrast HISTORY: Altered mental status COMPARISON: 02/28/2018 Areas of decreased attenuation are present in the periventricular white matter. This represents small-vessel ischemic disease. There is no intraparenchymal hemorrhage, acute infarct, mass or midline shift. The ventricular system and cortical sulci are dilated consistent with mild volume loss. There is no extra cerebral collection. There is no fracture. The visualized sinuses are clear. IMPRESSION: 1. Small-vessel ischemic disease. 2. Mild volume loss. Electronically Signed by Raza Larios MD 06/20/2018 04:21 P
[2018-06-20 16:35] LABS: ALBUMIN 3.6 GM/DL (3.2-5.2); ALT/SGPT 17 U/L (12-78); BILIRUBIN,DIRECT < 0.1 MG/DL (0.0-0.2); BILIRUBIN,TOTAL 0.2 MG/DL (0.2-1.0); BLOOD UREA NITROGEN 28 MG/DL (7-18); CALCIUM LEVEL 9.2 MG/DL (8.8-10.2); CARBON DIOXIDE LEVEL 30 MEQ/L (21-32); CHLORIDE LEVEL 104 MEQ/L (98-107); CPK CREATINE PHOSPHOKINASE 88 U/L (26-192); GLOMERULAR FILTRATION RATE 31.5 (>39); GLUCOSE, FASTING 135 MG/DL (70-100); MAGNESIUM LEVEL 2.3 MG/DL (1.8-2.4); MB/CK RELATIVE INDEX 3.41 (< OR =4); SODIUM LEVEL 139 MEQ/L (136-145); TOTAL PROTEIN 6.9 GM/DL (6.4-8.2); TROPONIN I < 0.02 NG/ML (< 0.10)
[2018-06-20] MEDS ORDERED: LORazepam 0.5 MG TAB PO STA (16:50)
[2018-06-20] MEDS ORDERED: **hydrALAZINE** 10 MG TAB PO ONE (17:15)
[2018-06-20] MEDS ORDERED: HYDR10TAB PO (17:20)
--- NOTE | 2018-06-20 17:29 | ECGEPIP ---
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
[2018-06-20 17:40] VITALS: BP 210/85
[2018-06-20 18:16] VITALS: BP 162/74
[2018-06-20] MEDS ORDERED: LISI-538 PO (18:27)
[2018-06-21] MEDS ORDERED: TORS20TA2 PO (09:50)
[2018-06-21] MEDS ORDERED: LISI-538 PO (09:50)
[2018-06-21] MEDS ORDERED: SPIR50TA4 PO (09:50)
[2018-06-21] MEDS ORDERED: REGL5TAB2 PO (09:50)
== END 2018-06-20 19:16 | disposition home or self-care (01) ==
LOC: M ED 15:15
DX: I11.0 Hypertensive heart disease with heart failure (principal); R90.82 White matter disease, unspecified; E11.9 Type 2 diabetes mellitus without complications; I50.9 Heart failure, unspecified; N18.9 Chronic kidney disease, unspecified; E66.2 Morbid (severe) obesity with alveolar hypoventilation; E24.9 Cushing's syndrome, unspecified; Z79.899 Other long term (current) drug therapy; Z79.82 Long term (current) use of aspirin; Z79.4 Long term (current) use of insulin; Z87.891 Personal history of nicotine dependence

== ENCOUNTER 2018-06-21 08:57 | Inpatient (IN) | payer MEDICARE ==
[~2018-06-21] VITALS: Ht 157.5 cm; Wt 81.4 kg
[~2018-06-21 08:57] MED LIST changes: +LISI-538 PO
[2018-06-21 09:26] LABS: VENOUS BASE EXCESS 3.2 (-2.0-2.0); VENOUS HCO3 28.9 MEQ/L (23.0-27.0); VENOUS O2 SATURATION 91.1 % (60.0-80.0); VENOUS PARTIAL PRESSURE CO2 50.7 mmHg (38.0-50.0); VENOUS PH 7.374 UNITS (7.330-7.430); VENOUS STANDARD HCO3 27.2 MEQ/L; VENOUS TOTAL CO2 30.5 MEQ/L (24.0-28.0)
[2018-06-21 09:31] LABS: BASO % 0.4 % (0.0-1.0); EOS # 0.1 10^3/uL (0.0-0.50); EOS % 1.2 % (0.0-3.0); HEMATOCRIT 25.4 % (36.0-47.0); HEMOGLOBIN 7.7 g/dl (12.0-15.5); LYMPH # 1.8 10^3/uL (1.5-4.5); LYMPH % 30.9 % (24.0-44.0); MEAN CORPUSCULAR HEMOGLOBIN 27.2 pg (27.0-33.0); MEAN CORPUSCULAR HGB CONC 30.3 g/dl (32.0-36.5); MEAN CORPUSCULAR VOLUME 89.8 fl (80.0-96.0); MONO # 0.7 10^3/uL (0.0-0.8); NEUTROPHILS # 3.1 10^3/uL (1.8-7.7); PLATELET COUNT, AUTOMATED 234 10^3/uL (150-450); RED BLOOD COUNT 2.83 10^6/uL (4.00-5.40); WHITE BLOOD COUNT 5.7 10^3/uL (4.0-10.0)
[2018-06-21] MEDS ORDERED: REGL5TAB2 PO (09:50)
[2018-06-21] MEDS ORDERED: SPIR50TA4 PO (09:50)
[2018-06-21] MEDS ORDERED: LISI-538 PO (09:50)
[2018-06-21] MEDS ORDERED: TORS20TA2 PO (09:50)
--- NOTE | 2018-06-21 09:50 | REP ---
Chest one-view HISTORY: Altered mental status Comparison: 06/11/2018 The lungs are clear. The heart is normal in size. The pulmonary vasculature is normal in appearance. Impression: No acute disease. Electronically Signed by Raza Larios MD 06/21/2018 09:41 A
[2018-06-21 10:11] LABS: OSMOLALITY SERUM 299 MOSM/KG (280-301)
[2018-06-21 10:13] LABS: ALBUMIN 3.3 GM/DL (3.2-5.2); ALT/SGPT 18 U/L (12-78); BILIRUBIN,DIRECT < 0.1 MG/DL (0.0-0.2); BILIRUBIN,TOTAL 0.3 MG/DL (0.2-1.0); BLOOD UREA NITROGEN 27 MG/DL (7-18); CALCIUM LEVEL 8.6 MG/DL (8.8-10.2); CARBON DIOXIDE LEVEL 30 MEQ/L (21-32); CHLORIDE LEVEL 104 MEQ/L (98-107); CPK CREATINE PHOSPHOKINASE 73 U/L (26-192); CREATININE FOR GFR 1.59 MG/DL (0.55-1.30); GLOMERULAR FILTRATION RATE 34.1 (>39); GLUCOSE, FASTING 140 MG/DL (70-100); MB/CK RELATIVE INDEX 3.29 (< OR =4); POTASSIUM SERUM 4.9 MEQ/L (3.5-5.1); SODIUM LEVEL 139 MEQ/L (136-145); TOTAL PROTEIN 6.8 GM/DL (6.4-8.2); TROPONIN I < 0.02 NG/ML (< 0.10)
[2018-06-21] MEDS: ONDANSETRON 4MG/2ML VIAL (J2405) IV ONE ×2 (11:01→11:57)
[2018-06-21] MEDS ORDERED: LORazepam 0.5 MG TAB PO STA (11:05)
[2018-06-21 13:58] LABS: FERRITIN 4 NG/ML (8-252); IRON (FE) 22 UG/DL (50-170); PERCENT SATURATION 4.5 % (13.2-45.0); TOTAL IRON BINDING CAPACITY 493 UG/DL (250-450)
[2018-06-21 14:05] LABS: FOLATE 10.8 NG/ML; VITAMIN B12 LEVEL 160 PG/ML
[2018-06-21] MEDS ORDERED: DEXTROSE 50% 50 ML SYRINGE IV PRN (14:30)
[2018-06-21] MEDS ORDERED: GLUCAGON FOR INJ 1 MG VIAL (J1610) SC PRN (14:30)
[2018-06-21] MEDS ORDERED: GLUCOSE 4 GM CHEW TABLET PO PRN (14:30)
--- NOTE | 2018-06-21 14:31 | HPEPDOC ---
General Date of Admission Chief Complaint The patient is a 73-year-old female admitted with a reason for visit of CVA. Source: Patient, RN/, Old records History of Present Illness 73 year old female with PMH of multiple embolic Ischemic strokes in June 2017 and feb 2018, Severe right carotid artery stenosis status post right carotid endarterectomy on 05/29/2017, [place] syndrome with negative adrenal vein sampling. Patient never had petrosal sinus sampling, Hypokalemia, Hypertension, insulin dependent Diabetes with peripheral neuropathy, coronary artery disease with history of stents in the past, Dyslipidemia Severe ALEX on CPAP, restless leg syndrome, periodic limb movement disorder, Diastolic CHF and chronic right heart failure, Moderate pulmonary hypertension, History of bladder cancer status post cystectomy in 2016, now has an ileal conduit with urostomy bag, Left adrenal mass, CKD stage 3, Chronic anemia cam to the ED due to a sudden episode of confusion and limpness of the whole body. Patient was here in the ED yesterday for increased abnormal jerky movements of the legs and was evaluated in the ED when everything looked to be at baseline. She got some ativan and felt better was ambulating ok with walker so was discharged from the ED. She came back again today with same increased jerky movements of the limbs both the upper and lower limbs which was much worse than usual with incoordination of the upper extremities. She says all night her legs were jumping and this morning when she tried to get up her legs gave way and whole body became limp. She does not remem taylor the ambulance ride. She is admitted for altered mental status with uncontrolled jerky movements of the limbs with inability to ambulate. She Had MRi done in the ED which showed 1.Small acute left pontine infarction. 2. Old bilateral basal ganglia and right internal capsule lacunar infarctions. 3. Small vessel ischemic disease. 4. Mild volume loss. Home Medications Scheduled Aspirin (Aspirin EC) 81 Mg Tab, 81 MG PO DAILY, (Reported) Carvedilol (Carvedilol) 25 Mg Tablet, 25 MG PO BID, (Reported) Cholecalciferol (Vitamin D3) (Vitamin D3) 2,000 Unit Cap, 2,000 UNIT PO BID, (Reported) Clonidine (Clonidine) 0.1 Mg Patch.tdwk, 0.1 MG TD 1XWK, (Reported) MONDAYS Clopidogrel Bisulfate (Clopidogrel) 75 Mg Tab, 75 MG PO DAILY, (Reported) Glipizide (Glipizide ER) 10 Mg Tab.er.24, 10 MG PO BID, (Reported) Insulin Human Lispro (Novolog) 100 U/Ml Inj, 1 DOSE SC AC, (Reported) PER SLIDING SCALE, 20-25 UNITS Isosorbide Mononitrate (Isosorbide Mononitrate ER) 30 Mg Tab.er.24h, 30 MG PO QHS, (Reported) Lisinopril (Lisinopril) 20 Mg Tablet, 20 MG PO DAILY, (Reported) THIS MEDICATION WAS RESTARTED 06/20/18. PATIENT HAS NOT PICKED UP REFILL, BUT DID TAKE 30MG THIS MORNING FROM OLD [facility] Magnesium Oxide (Magnesium Oxide) 500 Mg Tab, 500 MG PO BID, (Reported) Potassium Chloride (Klor-Con M20) 20 Meq Tabcr, 40 MEQ PO BID, (Reported) Pravastatin Sodium (Pravastatin Sodium) 40 Mg Tab, 40 MG PO QHS, (Reported) Ropinirole HCl (Ropinirole HCl) 1 Mg Tablet, 2 MG PO QHS, (Reported) Spironolactone (Spironolactone) 50 Mg Tablet, 100 MG PO BID, (Reported) DISCHARGE INSTRUCTIONS FROM 06/10/18 STATE 50MG BID, CAREGIVER STATES SHE HAS BEEN TAKING 100MG BID. Tizanidine HCl (Tizanidine HCl) 2 Mg Tablet, 2 MG PO TID, (Reported) Torsemide (Torsemide) 20 Mg Tablet, 40 MG PO BID, (Reported) DISCHARGE INSTRUCTIONS FROM 06/10/18 STATE 20MG BID, CAREGIVER STATES SHE HASING BEEN GIVING HER 40MG BID Trazodone HCl (Trazodone HCl) 100 Mg Tab, 100 MG PO QHS, (Reported) Scheduled PRN Metoclopramide Hcl (Reglan) 5 Mg Tablet, 5 MG PO ACHS PRN for NAUSEA, (Reported) Allergies Coded Allergies: No Known Allergies (Unverified , 05/27/18) Past Medical History Medical History Multiple strokes (embolic strokes in the right in June 2017 and left ischemic stroke in feb 2018), Severe right carotid artery stenosis status post right carotid endarterectomy on 05/29/2017, [place] syndrome with negative adrenal vein sampling. Patient never had petrosal sinus sampling, Hypokalemia, Hypertension, insulin dependent Diabetes with peripheral neuropathy, coronary artery disease with history of stents in the past, Dyslipidemia , Severe ALEX on CPAP, restless leg syndrome, periodic limb movement disorder, Diastolic CHF and chronic right heart failure, Moderate pulmonary hypertension, History of bladder cancer status post cystectomy in 2016, now has an ileal conduit with urostomy bag, Left adrenal mass, CKD stage 3, Chronic anemia Surgical History Radical cystectomy with ileal conduit creation in 2016 Right carotid endarterectomy in 2018 Status post cardiac catheterization in the past./cardiac stent 2014 bilaterl cataract surgery 2018 Family History mother in her 50's with DM. maternal side-diabetes. father in his 50's unknown medical problems. Social History * Smoker: former Smoker, quit greater than 1 year, greater than 1 pack/day, cigarettes Alcohol: Denies Drugs: denies A-FIB/CHADSVASC A-FIB History Current/History of A-Fib/PAF?: No Review of Systems Constitutional: Reports: Weakness, Fatigue; Denies: Chills, Fever, Night Sweats Eyes: Denies: Pain, Vision change ENT: Denies: Head Aches, Ear Pain, Dysphagia Skin: Denies: Rash, Lesions, Breakdown Pulmonary: Denies: Dyspnea, Cough Cardiovascular: Denies: Chest Pain, Palpitations, Orthopnea, Paroxysmal Noc. Dyspnea, Lt Headedness Gastrointestinal: Denies: Nausea, Vomiting, Abdominal Pain, Diarrhea Genitourinary: Denies: Dysuria, Frequency, Incontinence, Retention Musculoskeletal: Reports: Arm Pain, Leg Pain, Spasms Neurological: Reports: Weakness, Incoordination, Confusion Physical Examination General Exam: Positive: Alert, Cooperative, Mild Distress Eye Exam: Positive: Conjunctiva & lids normal, EOMI ENT Exam: Positive: Atraumatic, Mucous membr. moist/pink, Pharynx Normal Neck Exam: Positive: Supple Chest Exam: Positive: Clear to auscultation, Normal air movement Heart Exam: Positive: Rate Normal, Regular Rhythm, Normal S1, Normal S2; Negative: Murmurs, Rubs Telemetry: Positive: No significant arrhythmia Abdomen Exam: Positive: Normal bowel sounds, Soft; Negative: Tenderness, Hepatospenomegaly Extremity Exam: Negative: Clubbing, Cyanosis, Edema Skin Exam: Positive: Nl turgor and temperature; Negative: Breakdown, Lesion Neuro Exam: Positive: Normal Speech, Normal Tone, Other (DTRs absent in bothe lower extremities, planter is down going. ) Vital Signs Vital Signs Date Time Temp Pulse Resp B/P (MAP) Pulse Ox O2 Delivery O2 Flow Rate FiO2 06/21/18 12:31 138/58 (84) 06/21/18 12:30 61 96 06/21/18 09:06 97.3 18 Room Air Laboratory Data Labs 24H Laboratory Tests 2 06/21/18 09:14: Blood Gas Bicarbonate Standard 27.2, Venous Blood pH 7.374, Venous Blood Partial Pressure CO2 50.7H, Venous Blood Partial Pressure O2 64.0H, Venous Blood Total Carbon Dioxide 30.5H, Venous Blood HCO3 28.9H, Venous Blood Oxygen Saturation 91.1H, Venous Blood Base Excess 3.2H, Anion Gap 5L, Glomerular Filtration Rate 34.1L, Osmolality 299, Calcium Level 8.6L, Aspartate Amino Transf (AST/SGOT) 8, Alanine Aminotransferase (ALT/SGPT) 18, Alkaline Phosphatase 47, Total Bilirubin 0.3, Direct Bilirubin < 0.1, Total Creatine Kinase 73, Creatine Kinase MB 2.0, Creatine Kinase MB Relative Index 3.29, Troponin I < 0.02, Total Protein 6.8, Albumin 3.3, Albumin/Globulin Ratio 0.94L, Thyroid Stimulating Hormone (TSH) 7.150H 06/21/18 09:15: Immature Granulocyte % (Auto) 0.5, White Blood Count 5.7, Red Blood Count 2.83L, Hemoglobin 7.7L, Hematocrit 25.4L, Mean Corpuscular Volume 89.8, Mean Corpuscular Hemoglobin 27.2, Mean Corpuscular Hemoglobin Concent 30.3L, Red Cell Distribution Width 13.2, Platelet Count 234, Neutrophils (%) (Auto) 55.0, Lymphocytes (%) (Auto) 30.9, Monocytes (%) (Auto) 12.0H, Eosinophils (%) (Auto) 1.2, Basophils (%) (Auto) 0.4, Neutrophils # (Auto) 3.1, Lymphocytes # (Auto) 1.8, Monocytes # (Auto) 0.7, Eosinophils # (Auto) 0.1, Basophils # (Auto) 0.0, Nucleated Red Blood Cells % (auto) 0.0, Ammonia 21 06/21/18 09:27: Bedside Glucose (Misc Panel) 142H CBC/BMP Laboratory Tests 06/21/18 09:14 06/21/18 09:15 Red Blood Count 2.83 L, Mean Corpuscular Volume 89.8, Mean Corpuscular Hemoglobin 27.2, Mean Corpuscular Hemoglobin Concent 30.3 L, Red Cell Distribution Width 13.2, Neutrophils (%) (Auto) 55.0, Lymphocytes (%) (Auto) 30.9, Monocytes (%) (Auto) 12.0 H, Eosinophils (%) (Auto) 1.2, Basophils (%) (Auto) 0.4, Neutrophils # (Auto) 3.1, Lymphocytes # (Auto) 1.8, Monocytes # (Auto) 0.7, Eosinophils # (Auto) 0.1, Basophils # (Auto) 0.0 Assessment/Plan 73 year old female with PMH of 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 Patient never had petrosal sinus sampling, Hypokalemia, Hypertension, insulin dependent Diabetes with peripheral neuropathy, coronary artery disease with history of stents in the past, Dyslipidemia Severe ALEX on CPAP, restless leg syndrome, periodic limb movement disorder, Diastolic CHF and chronic right heart failure, Moderate pulmonary hypertension, History of bladder cancer status post cystectomy in 2016, now has an ileal conduit with urostomy bag, Left adrenal mass, CKD stage 3, Chronic anemia cam to the ED due to a sudden episode of confusion and limpness of the whole body. Patient was here in the ED yesterday for increased abnormal jerky movements of the legs and was evaluated in the ED when everything looked to be at baseline. She got some ativan and felt better was ambulating ok with walker so was discharged from the ED. She came back again today with same increased jerky movements of the limbs. She says all night her legs were jumping and this morning when she tried to get up her legs gave way and whole body became limp. She does not remember the ambulance ride. She is admitted for altered mental status with uncontrolled jerky movements of the limbs with inability to ambulate. She Had MRI done in the ED which showed 1.Small acute left pontine infarction. 2. Old bilateral basal ganglia and right internal capsule lacunar infarctions. 3. Small vessel ischemic disease. 4. Mild volume loss. MRA was within normal limits. She was admitted for acute brain stem stroke. Acute Ischemic Pont[place] stroke. Her abnormal limb movements rally increased last week with severe difficulty in ambulation Ifeel she probably had this new stroke then. allow permissive hypertension for 48 hours so will hold lisinopril and torsemide. continue Betablocker, plavix will probably have to add asa to this regimen as she had stroke inspite of being on plavix appreciate neurology consult. Restless leg syndrome, periodic limb movement disorder will increase requip will also get a cervical MRi and if needed a LS MRI also. Severe Anemia no h/o overt bleeding severe iron deficiency and Vit B12 deficiency will give venofer and Vit b12 injections x 3 then every week. will give 2 units of prbc. CKD stage 3 creatinine close to baseline. Diabetes with peripheral neuropathy her sugars are much better controlled after stopping her meds for dee syndrome continue glipizide. Chronic diastolic CHF she is euvolemic now will hold torsemide for now. coronary artery disease with history of stents in the past, continue betablocker, statin , plavix and imbur. Dyslipidemia continue statin Severe ALEX on CPAP with moderate pulmonary hypertension use own CPAP H/O severe right carotid artery stenosis s/p CEA. H/o bladder cancer s/p radical cystectomy and creation of ileal conduit has urostomy bag in place. DVT prophylaxis orderd. ABEL TAN MD June 21, 2018 14:31
[2018-06-21 15:47] VITALS: BP 134/78
[2018-06-21] MEDS: rOPINIRole 2MG TAB PO SCH ×2 (15:54→21:50)
--- NOTE | 2018-06-21 17:18 | REP ---
MRA BRAIN WITHOUT CONTRAST: HISTORY: Weakness. COMPARISON: 05/2017. 3D [id number] MR angiography was performed at the level of the [place]. There is no aneurysm or arteriovenous malformation. Mild atherosclerotic disease involves the cavernous internal carotid arteries , middle cerebral artery trifurcations and A1 segment of the right anterior cerebral artery. Moderate atherosclerotic disease involves the right posterior cerebral artery. The major intracranial vessels are patent. The vertebral arteries are equal in size. IMPRESSION: 1. There is no aneurysm or arteriovenous malformation. 2. Atherosclerotic disease as described above. Electronically Signed by Raza Larios MD 06/24/2018 08:23 A
[2018-06-21] MEDS: TORSEMIDE 20 MG TAB PO SCH (17:19)
[2018-06-21] MEDS: tiZANidine 4 MG TAB PO SCH ×2 (17:19→21:48)
[2018-06-21] MEDS: SPIRONOLACTONE 50 MG TAB PO SCH (17:20)
[2018-06-21] MEDS: HumaLOG INSULIN (NovoLOG) PER UNIT SC SCH ×2 (17:20→21:00)
--- NOTE | 2018-06-21 17:33 | REP ---
MR BRAIN WITHOUT CONTRAST: HISTORY: Weakness. COMPARISON: MR 02/28/[address] 06/20/2018. A small area of increased signal intensity on diffusion and T2 weighted images is present in the left elpidio. This is slightly decreased in signal intensity on ADC images and is consistent with an acute infarction. Areas of increased signal intensity on T2 weighted images are present in the basal ganglia and right internal capsule. These represent old lacunar infarctions. Areas of increased signal intensity on T2 weighted images are present in the periventricular and subcortical white matter. This represents small vessel ischemic disease. There is no intraparenchymal hemorrhage, mass or midline shift. The ventricular system and cortical sulci are dilated consistent with mild volume loss. There is no extracerebral collection. The sinuses are clear. IMPRESSION: 1. Small acute left pontine infarction. 2. Old bilateral basal ganglia and right internal capsule lacunar infarctions. 3. Small vessel ischemic disease. 4. Mild volume loss. Electronically Signed by Raza Larios MD 06/24/2018 08:23 A
[2018-06-21] MEDS: glipiZIDE XL 5 MG TABCR PO SCH (21:48)
[2018-06-21] MEDS: traZODone 100 MG TAB PO SCH (21:48)
[2018-06-21] MEDS: ISOSORBIDE MON. (IMDUR) 30 MG XR TAB PO SCH (21:49)
[2018-06-21] MEDS: CARVedilol 12.5 MG TAB PO SCH (21:50)
[2018-06-21] MEDS: PRAVASTATIN 20 MG TAB PO SCH (21:50)
[2018-06-21 22:00] VITALS: BP 132/72
[2018-06-21] MEDS ORDERED: ACETAMINOPHEN TAB 650MG DOSE (2X325MG) PO ONE (23:15)
[2018-06-22] MEDS ORDERED: ANALGESIC BALM CRM 120 GM TOP PRN (00:45)
[2018-06-22] MEDS: tiZANidine 4 MG TAB PO SCH ×3 (05:42→20:47)
[2018-06-22] MEDS: ANALGESIC BALM CRM 120 GM TOP PRN ×2 (05:43→23:26)
[2018-06-22 06:00] VITALS: BP 142/88
[2018-06-22 07:46] LABS: BASO % 0.5 % (0.0-1.0); EOS # 0.1 10^3/uL (0.0-0.50); EOS % 1.3 % (0.0-3.0); HEMATOCRIT 24.1 % (36.0-47.0); HEMOGLOBIN 7.2 g/dl (12.0-15.5); LYMPH # 1.8 10^3/uL (1.5-4.5); LYMPH % 29.6 % (24.0-44.0); MEAN CORPUSCULAR HEMOGLOBIN 26.9 pg (27.0-33.0); MEAN CORPUSCULAR HGB CONC 29.9 g/dl (32.0-36.5); MEAN CORPUSCULAR VOLUME 89.9 fl (80.0-96.0); MONO # 0.6 10^3/uL (0.0-0.8); MONO % 10.3 % (0.0-5.0); NEUTROPHILS # 3.6 10^3/uL (1.8-7.7); PLATELET COUNT, AUTOMATED 223 10^3/uL (150-450); RED BLOOD COUNT 2.68 10^6/uL (4.00-5.40); WHITE BLOOD COUNT 6.2 10^3/uL (4.0-10.0)
[2018-06-22] MEDS ORDERED: IRON SUCROSE 500 MG in NS 250 ML IV ONE (08:00)
[2018-06-22 08:11] LABS: CALCIUM LEVEL 8.9 MG/DL (8.8-10.2); CREATININE FOR GFR 1.68 MG/DL (0.55-1.30); POTASSIUM SERUM 4.7 MEQ/L (3.5-5.1)
[2018-06-22] MEDS ORDERED: CYANOCOBALAMIN 1,000 MCG/ML VIAL (J3420) IM SCH (09:00)
[2018-06-22] MEDS ORDERED: LISINOPRIL 20 MG TAB PO SCH (09:00)
[2018-06-22 09:40] VITALS: BP 143/67
[2018-06-22] MEDS: glipiZIDE XL 5 MG TABCR PO SCH ×2 (10:26→20:47)
[2018-06-22] MEDS: rOPINIRole 2MG TAB PO SCH ×3 (10:26→20:46)
[2018-06-22] MEDS: SPIRONOLACTONE 50 MG TAB PO SCH ×2 (10:27→16:53)
[2018-06-22] MEDS: CLOPIDOGREL 75 MG TAB PO SCH (10:28)
[2018-06-22] MEDS: CARVedilol 12.5 MG TAB PO SCH ×2 (10:28→20:51)
[2018-06-22] MEDS: HumaLOG INSULIN (NovoLOG) PER UNIT SC SCH ×4 (10:30→20:45)
[2018-06-22] MEDS: ACETAMINOPHEN 500 MG TAB PO PRN ×2 (12:47→23:26)
--- NOTE | 2018-06-22 13:14 | CR ---
DATE OF CONSULTATION: 06/21/2018 REASON FOR CONSULTATION: Imbalance, difficulty walking and weakness. HISTORY OF PRESENT ILLNESS: Yolanda Ng is a 73-year-old woman who had multiple embolic strokes in June 2017 and February 2018, and had right carotid endarterectomy in May 2017, [place] syndrome, diabetes with peripheral neuropathy, sleep apnea, bladder cancer who was at her baseline state of health until a week ago when she started more problems with her legs. She had imbalance, difficulty walking and incoordination. She also felt worsening of her restless legs. Her legs were jumping around. Sometimes would go into her arms as well. Patient has history of restless leg syndrome and has been taking ropinirole. It appears that there is some confusion about the dosing of ropinirole. I have distinct impression that we had increase the dose of ropinirole to twice a day on her outpatient visit. She is still taking ropinirole only at nighttime. She denies any headaches, neck or back pain. She denies any dysphagia, dysarthria, diplopia or urinary incontinence. She seems to have much more incoordination on the right side. She has mild right-sided weakness. She denies any falls or loss of consciousness or head injuries. PAST MEDICAL HISTORY: 1. Multiple strokes in June 2017 and February 2018. 2. Right carotid endarterectomy 2017. 3. Dee syndrome. 4. Hypertension. 5. Hypokalemia. 6. Insulin-dependent diabetes with peripheral neuropathy. 7. Coronary artery disease. 8. Sleep apnea. 9. Restless leg syndrome. 10. Diastolic heart failure. 12. Pulmonary hypertension. 13. Bladder cancer with a history of ideal conduit with urostomy and cystectomy. 13. Bilateral cataract surgery. 14. Cardiac stent. SOCIAL HISTORY: She is a former smoker. FAMILY HISTORY: Mother had diabetes. Father of unknown medical problems. HOME MEDICATIONS: - aspirin 81 mg daily - carvedilol 25 mg by mouth twice a day - clonidine 0.1 mg patch once a week - Plavix 75 mg by mouth daily - glipizide 10 mg by mouth twice a day - insulin NovoLog sliding scale - lisinopril 20 mg by mouth daily - magnesium oxide 5 mg by mouth twice a day - potassium chloride 40 mEq by mouth twice a day - pravastatin 20 mg by mouth daily - ropinirole 2 mg by mouth nightly - spironolactone 100 mg by mouth twice a day - tizanidine 2 mg by mouth three times a day - torsemide 40 mg by mouth twice a day - trazodone 1 mg by mouth nightly - Reglan 5 mg by mouth as needed for nausea REVIEW OF SYSTEMS: All systems were reviewed and found to be noncontributory except as mentioned in history present illness. PHYSICAL EXAMINATION: Temperature 97.3, pulse 61, respiratory 18, blood pressure 138/58, 96% oxygen saturation on room air. Heart: Regular rate and rhythm. Lungs: Clear to auscultation. Abdomen: Soft, nontender, nondistended. No pedal edema. No musculoskeletal abnormalities. No rash. No signs of meningeal irritation. The patient is awake, alert, oriented to place, person, and time. Recent and distant memory is intact. No facial weakness. Tongue and uvula are midline. Extraocular signs are intact. No nystagmus. 4+/5 strength on right side. Left-sided strength is 5/5. She has prominent dysmetria on right side and incoordination of right arm and leg. Her gait is ataxic. DIAGNOSTIC STUDIES: MRI scan of brain showed an acute-subacute left pontine ischemic stroke. MRA brain showed mild-moderate multivessel atherosclerosis effecting internal carotid artery, MCA, and RANGE EXAMINER. Her hemoglobin has dropped from 11.3 in February 2018 to current 7.7. Hematocrit currently is 25.4. Creatinine 1.59. TSH is 7.15. Serum ferritin is 4. ASSESSMENT: 1. Left pontine acute-subacute ischemic stroke. 2. History of multiple bilateral strokes in 2018 and 2019. 3. Right carotid artery stenosis and patient is status post right carotid endarterectomy. 4. Anemia with drop of hemoglobin from 11.3 to 7.7 in the last 4 months with a ferritin level only 4. 5. Mild-moderate multivessel intracranial atherosclerosis. 6. Restless leg syndrome with periodic limb movements of sleep and wakefulness. PLAN: 1. Aspirin 81 mg by mouth daily and Plavix 75 mg by mouth daily. The patient denies any gastrointestinal (GI) bleed or discolored stools. She likely needs further workup for her anemia as to whether it is related to occult blood loss or myelodysplastic syndrome. We will also check her vitamin B12 level and folic acid level. 2. Carotid ultrasound and echocardiogram. Continue telemetry monitoring. 3. Physical and occupational therapy. 4. Increase ropinirole to 2 mg by mouth three times a day. We may add clonazepam if her restless legs and periodic limb movements of sleep remain significant. We should discontinue Reglan as it can aggravate restless legs. 5. Consider inpatient rehabilitation and physical therapy. 6. Follow with our office in 2-4 weeks after hospital discharge.
[2018-06-22] MEDS ORDERED: PILL CRUSHER/CUTTER 1 EACH XX PRN (13:45)
[2018-06-22 14:00] VITALS: BP 160/58
--- NOTE | 2018-06-22 17:32 | ECGEPIP ---
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
[2018-06-22 18:35] LABS: BASO % 0.5 % (0.0-1.0); EOS % 0.7 % (0.0-3.0); HEMATOCRIT 25.7 % (36.0-47.0); HEMOGLOBIN 7.8 g/dl (12.0-15.5); LYMPH # 1.9 10^3/uL (1.5-4.5); LYMPH % 32.7 % (24.0-44.0); MEAN CORPUSCULAR HEMOGLOBIN 27.1 pg (27.0-33.0); MEAN CORPUSCULAR HGB CONC 30.4 g/dl (32.0-36.5); MEAN CORPUSCULAR VOLUME 89.2 fl (80.0-96.0); MONO # 0.5 10^3/uL (0.0-0.8); MONO % 9.1 % (0.0-5.0); NEUTROPHILS # 3.4 10^3/uL (1.8-7.7); NEUTROPHILS % 56.7 % (36.0-66.0); PLATELET COUNT, AUTOMATED 235 10^3/uL (150-450); RED BLOOD COUNT 2.88 10^6/uL (4.00-5.40); WHITE BLOOD COUNT 5.9 10^3/uL (4.0-10.0)
[2018-06-22] MEDS: ISOSORBIDE MON. (IMDUR) 30 MG XR TAB PO SCH (20:51)
[2018-06-22] MEDS: PRAVASTATIN 20 MG TAB PO SCH (20:52)
[2018-06-22] MEDS: traZODone 100 MG TAB PO SCH (20:52)
[2018-06-22 22:00] VITALS: BP 151/68
[2018-06-23 06:00] VITALS: BP 150/81
[2018-06-23] MEDS: tiZANidine 4 MG TAB PO SCH ×3 (06:04→21:06)
[2018-06-23 06:05] LABS: BASO % 0.3 % (0.0-1.0); EOS # 0.1 10^3/uL (0.0-0.50); EOS % 0.9 % (0.0-3.0); HEMATOCRIT 25.7 % (36.0-47.0); HEMOGLOBIN 7.6 g/dl (12.0-15.5); LYMPH # 1.8 10^3/uL (1.5-4.5); LYMPH % 26.9 % (24.0-44.0); MEAN CORPUSCULAR HEMOGLOBIN 26.4 pg (27.0-33.0); MEAN CORPUSCULAR HGB CONC 29.6 g/dl (32.0-36.5); MEAN CORPUSCULAR VOLUME 89.2 fl (80.0-96.0); MONO # 0.6 10^3/uL (0.0-0.8); MONO % 9.2 % (0.0-5.0); NEUTROPHILS # 4.2 10^3/uL (1.8-7.7); NEUTROPHILS % 62.3 % (36.0-66.0); PLATELET COUNT, AUTOMATED 242 10^3/uL (150-450); RED BLOOD COUNT 2.88 10^6/uL (4.00-5.40); WHITE BLOOD COUNT 6.7 10^3/uL (4.0-10.0)
[2018-06-23 06:16] LABS: CALCIUM LEVEL 8.6 MG/DL (8.8-10.2); CREATININE FOR GFR 1.29 MG/DL (0.55-1.30); GLOMERULAR FILTRATION RATE 43.4 (>39); POTASSIUM SERUM 4.1 MEQ/L (3.5-5.1)
--- NOTE | 2018-06-23 06:53 | IPNPDOC ---
Subjective Date Seen The patient was seen on 06/22/18. Subjective Chief Complaint/HPI Continues to have severe bilateral jerky movements of the limbs myoclonic jerks and restless legs with incordination and increased weakness of the right upper extremity more than usual. Bp in acceptable range, No overt bleeding. Will be getting venofer and vit b12. Denies any difficulty in swallowing. Objective Physical Examination General Exam: Positive: Alert, Cooperative, Mild Distress Eye Exam: Positive: Conjunctiva & lids normal, EOMI ENT Exam: Positive: Atraumatic, Mucous membr. moist/pink, Pharynx Normal Neck Exam: Positive: Supple Chest Exam: Positive: Clear to auscultation, Normal air movement Heart Exam: Positive: Rate Normal, Regular Rhythm, Normal S1, Normal S2; Negative: Murmurs, Rubs Telemetry: Positive: No significant arrhythmia Abdomen Exam: Positive: Normal bowel sounds, Soft; Negative: Tenderness, Hepatospenomegaly Extremity Exam: Negative: Clubbing, Cyanosis, Edema Skin Exam: Positive: Nl turgor and temperature; Negative: Breakdown, Lesion Neuro Exam: Positive: Normal Speech, Normal Tone, Other (DTRs absent in bothe lower extremities, planter is down going. 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 Patient never had petrosal sinus sampling, Hypokalemia, Hypertension, insulin dependent Diabetes with peripheral neuropathy, coronary artery disease with history of stents in the past, Dyslipidemia Severe ALEX on CPAP, restless leg syndrome, periodic limb movement disorder, Diastolic CHF and chronic right heart failure, Moderate pulmonary hypertension, History of bladder cancer status post cystectomy in 2016, now has an ileal conduit with urostomy bag, Left adrenal mass, CKD stage 3, Chronic anemia cam to the ED due to a sudden episode of confusion and limpness of the whole body. Patient was here in the ED yesterday for increased abnormal jerky movements of the legs and was evaluated in the ED when everything looked to be at baseline. She got some ativan and felt better was ambulating ok with walker so was discharged from the ED. She came back again today with same increased jerky movements of the limbs. She says all night her legs were jumping and this morning when she tried to get up her legs gave way and whole body became limp. She does not remember the ambulance ride. She is admitted for altered mental status with uncontrolled jerky movements of the limbs with inability to ambulate. She Had MRI done in the ED which showed 1.Small acute left pontine infarction. 2. Old bilateral basal ganglia and right internal capsule lacunar infarctions. 3. Small vessel ischemic disease. 4. Mild volume loss. MRA was within normal limits. She was admitted for acute brain stem stroke. Acute Ischemic [place] stroke. Her abnormal limb movements rally increased last week with severe difficulty in ambulation I feel she probably had this new stroke then. allow permissive hypertension for 48 hours so will hold lisinopril and torsemide. continue Betablocker, plavix start ASA 81 will get new bilateral carotid US and echocardiogram. appreciate neurology consult. Restless leg syndrome, periodic limb movement disorder will increase requip to tid. will also get a cervical MRI Severe Anemia no h/o overt bleeding severe iron deficiency and Vit B12 deficiency will get stool for occult blood. will give venofer and Vit b12 injections x 3 then every week. PRBC transfusion tomorrow. CKD stage 3 creatinine close to baseline. Diabetes with peripheral neuropathy her sugars are much better controlled after stopping her meds for michelle syndrome continue glipizide. Chronic diastolic CHF she is euvolemic now will hold torsemide for now. coronary artery disease with history of stents in the past, continue betablocker, statin , plavix and imbur. Dyslipidemia continue statin Severe ALEX on CPAP with moderate pulmonary hypertension use own CPAP H/O severe right carotid artery stenosis s/p CEA. H/o bladder cancer s/p radical cystectomy and creation of ileal conduit has urostomy bag in place. DVT prophylaxis orderd. Plan/VTE VTE Prophylaxis Ordered?: Yes VS, I&O, 24H, Fishbone Vital Signs/I&O Vital Signs Date Time Temp Pulse Resp B/P (MAP) Pulse Ox O2 Delivery O2 Flow Rate FiO2 06/23/18 06:00 97.1 64 18 150/81 (104) 96 06/21/18 15:55 Room Air I&O- Last 24 Hours up to 6 AM 06/23/18 06:00 Intake Total 2050 ml Output Total 1900 ml Balance 150 ml Laboratory Data 24H LABS Laboratory Tests 2 06/22/18 07:27: Immature Granulocyte % (Auto) 0.3, White Blood Count 6.2, Red Blood Count 2.68L, Hemoglobin 7.2L, Hematocrit 24.1L, Mean Corpuscular Volume 89.9, Mean Corpuscular Hemoglobin 26.9L, Mean Corpuscular Hemoglobin Concent 29.9L, Red Cell Distribution Width 13.3, Platelet Count 223, Neutrophils (%) (Auto) 58.0, Lymphocytes (%) (Auto) 29.6, Monocytes (%) (Auto) 10.3H, Eosinophils (%) (Auto) 1.3, Basophils (%) (Auto) 0.5, Neutrophils # (Auto) 3.6, Lymphocytes # (Auto) 1.8, Monocytes # (Auto) 0.6, Eosinophils # (Auto) 0.1, Basophils # (Auto) 0.0, Nucleated Red Blood Cells % (auto) 0.0, Anion Gap 6L, Glomerular Filtration Rate 32.0L, Blood Urea Nitrogen 30H, Creatinine 1.68H, Sodium Level 139, Potassium Level 4.7, Chloride Level 105, Carbon Dioxide Level 28, Calcium Level 8.9 06/22/18 12:29: Bedside Glucose (Misc Panel) 132H 06/22/18 16:55: Bedside Glucose (Misc Panel) 175H 06/22/18 18:19: Immature Granulocyte % (Auto) 0.3, White Blood Count 5.9, Red Blood Count 2.88L, Hemoglobin 7.8L, Hematocrit 25.7L, Mean Corpuscular Volume 89.2, Mean Corpuscular Hemoglobin 27.1, Mean Corpuscular Hemoglobin Concent 30.4L, Red Cell Distribution Width 13.2, Platelet Count 235, Neutrophils (%) (Auto) 56.7, Lymphocytes (%) (Auto) 32.7, Monocytes (%) (Auto) 9.1H, Eosinophils (%) (Auto) 0.7, Basophils (%) (Auto) 0.5, Neutrophils # (Auto) 3.4, Lymphocytes # (Auto) 1.9, Monocytes # (Auto) 0.5, Eosinophils # (Auto) 0.0, Basophils # (Auto) 0.0, Nucleated Red Blood Cells % (auto) 0.0 06/22/18 20:39: Bedside Glucose (Misc Panel) 175H 5/19/19 05:22: Immature Granulocyte % (Auto) 0.4, White Blood Count 6.7, Red Blood Count 2.88L, Hemoglobin 7.6L, Hematocrit 25.7L, Mean Corpuscular Volume 89.2, Mean Corpuscular Hemoglobin 26.4L, Mean Corpuscular Hemoglobin Concent 29.6L, Red Cell Distribution Width 13.2, Platelet Count 242, Neutrophils (%) (Auto) 62.3, Lymphocytes (%) (Auto) 26.9, Monocytes (%) (Auto) 9.2H, Eosinophils (%) (Auto) 0.9, Basophils (%) (Auto) 0.3, Neutrophils # (Auto) 4.2, Lymphocytes # (Auto) 1.8, Monocytes # (Auto) 0.6, Eosinophils # (Auto) 0.1, Basophils # (Auto) 0.0, Nucleated Red Blood Cells % (auto) 0.0, Anion Gap 7L, Glomerular Filtration Rate 43.4, Blood Urea Nitrogen 22H, Creatinine 1.29, Sodium Level 142, Potassium Level 4.1, Chloride Level 107, Carbon Dioxide Level 28, Calcium Level 8.6L CBC/BMP Laboratory Tests 06/22/18 07:27 Red Blood Count 2.68 L, Mean Corpuscular Volume 89.9, Mean Corpuscular Hemoglobin 26.9 L, Mean Corpuscular Hemoglobin Concent 29.9 L, Red Cell Dis tribution Width 13.3, Neutrophils (%) (Auto) 58.0, Lymphocytes (%) (Auto) 29.6, Monocytes (%) (Auto) 10.3 H, Eosinophils (%) (Auto) 1.3, Basophils (%) (Auto) 0.5, Neutrophils # (Auto) 3.6, Lymphocytes # (Auto) 1.8, Monocytes # (Auto) 0.6, Eosinophils # (Auto) 0.1, Basophils # (Auto) 0.0, Calcium Level 8.9 06/22/18 18:19 Red Blood Count 2.88 L, Mean Corpuscular Volume 89.2, Mean Corpuscular Hemoglobin 27.1, Mean Corpuscular Hemoglobin Concent 30.4 L, Red Cell Distribution Width 13.2, Neutrophils (%) (Auto) 56.7, Lymphocytes (%) (Auto) 32.7, Monocytes (%) (Auto) 9.1 H, Eosinophils (%) (Auto) 0.7, Basophils (%) (Auto) 0.5, Neutrophils # (Auto) 3.4, Lymphocytes # (Auto) 1.9, Monocytes # (Auto) 0.5, Eosinophils # (Auto) 0.0, Basophils # (Auto) 0.0 06/23/18 05:22 Red Blood Count 2.88 L, Mean Corpuscular Volume 89.2, Mean Corpuscular Hemoglobin 26.4 L, Mean Corpuscular Hemoglobin Concent 29.6 L, Red Cell Distribution Width 13.2, Neutrophils (%) (Auto) 62.3, Lymphocytes (%) (Auto) 26.9, Monocytes (%) (Auto) 9.2 H, Eosinophils (%) (Auto) 0.9, Basophils (%) (Auto) 0.3, Neutrophils # (Auto) 4.2, Lymphocytes # (Auto) 1.8, Monocytes # (Auto) 0.6, Eosinophils # (Auto) 0.1, Basophils # (Auto) 0.0, Calcium Level 8.6 L ABEL TAN MD June 23, 2018 06:53
[2018-06-23] MEDS: CLOPIDOGREL 75 MG TAB PO SCH (08:53)
[2018-06-23] MEDS: ASPIRIN 81 MG ENTERIC TAB PO SCH (08:53)
[2018-06-23] MEDS: CARVedilol 12.5 MG TAB PO SCH ×2 (08:54→21:06)
[2018-06-23] MEDS: rOPINIRole 2MG TAB PO SCH ×3 (08:54→21:06)
[2018-06-23] MEDS: glipiZIDE XL 5 MG TABCR PO SCH ×2 (08:54→21:58)
[2018-06-23] MEDS: SPIRONOLACTONE 50 MG TAB PO SCH ×2 (08:54→16:23)
[2018-06-23] MEDS: HumaLOG INSULIN (NovoLOG) PER UNIT SC SCH ×4 (08:55→21:00)
[2018-06-23] MEDS ORDERED: CYANOCOBALAMIN 1,000 MCG/ML VIAL (J3420) IM SCH (09:00)
[2018-06-23] MEDS: TORSEMIDE 20 MG TAB PO SCH ×2 (09:34→16:23)
--- NOTE | 2018-06-23 09:52 | REP ---
HISTORY: Recurrent CVA. There is echogenic material seen along the carotid arterial [place], some of which casts and acoustic shadow consistent with calcific deposition. Right Left CCA systolic 83.1 cm/s 74.6 cm/s CCA diastolic 13.5 cm/s 13.2 cm/s ICA systolic 125.0 cm/s 105.0 cm/s ICA diastolic 32.9 cm/s 28.0 cm/s ICA/CCA ratio 1.50 1.51 Analysis of the spectral waveform shows mild right internal carotid arterial spectral broadening. IMPRESSION: According to the NASCET consensus criteria, there is less than 50% stenosis of the internal carotid artery bilaterally. Electronically Signed by Gerber Ridley DO 06/23/2018 10:22 A
--- NOTE | 2018-06-23 11:45 | IPNPDOC ---
Subjective Date Seen The patient was seen on 06/23/18. Subjective Chief Complaint/HPI Patient's jerking movements of the limbs seems to be less today but she says she would like it to be controlled a little better. Had her iron vit B12 yesterday will give prbc transfusion today. Had Carotid US done today. There is less than 50% blockge bilaterally. No fever or chills, no chest pain of SOB , no nausea or vomiting . She has not had a bowel movement ofr 3 days and is requesting some stool softeners. Objective Physical Examination General Exam: Positive: Alert, Cooperative, Mild Distress Eye Exam: Positive: Conjunctiva & lids normal, EOMI ENT Exam: Positive: Atraumatic, Mucous membr. moist/pink, Pharynx Normal Neck Exam: Positive: Supple Chest Exam: Positive: Clear to auscultation, Normal air movement Heart Exam: Positive: Rate Normal, Regular Rhythm, Normal S1, Normal S2; Negative: Murmurs, Rubs Telemetry: Positive: No significant arrhythmia Abdomen Exam: Positive: Normal bowel sounds, Soft; Negative: Tenderness, Hepatospenomegaly Extremity Exam: Negative: Clubbing, Cyanosis, Edema Skin Exam: Positive: Nl turgor and temperature; Negative: Breakdown, Lesion Neuro Exam: Positive: Normal Speech, Normal Tone, Other (DTRs absent in bothe lower extremities, planter is down going. 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 Patient never had petrosal sinus sampling, Hypokalemia, Hypertension, insulin dependent Diabetes with peripheral neuropathy, coronary artery disease with history of stents in the past, Dyslipidemia Severe ALEX on CPAP, restless leg syndrome, periodic limb movement disorder, Diastolic CHF and chronic right heart failure, Moderate pulmonary hypertension, History of bladder cancer status post cystectomy in 2016, now has an ileal conduit with urostomy bag, Left adrenal mass, CKD stage 3, Chronic anemia cam to the ED due to a sudden episode of confusion and limpness of the whole body. Patient was here in the ED yesterday for increased abnormal jerky movements of the legs and was evaluated in the ED when everything looked to be at baseline. She got some ativan and felt better was ambulating ok with walker so was discharged from the ED. She came back again today with same increased jerky movements of the limbs. She says all night her legs were jumping and this morning when she tried to get up her legs gave way and whole body became limp. She does not remember the ambulance ride. She is admitted for altered mental status with uncontrolled jerky movements of the limbs with inability to ambulate. She Had MRI done in the ED which showed 1.Small acute left pontine infarction. 2. Old bilateral basal ganglia and right internal capsule lacunar infarctions. 3. Small vessel ischemic disease. 4. Mild volume loss. MRA was within normal limits. She was admitted for acute brain stem stroke. Acute Ischemic [place] stroke. Her abnormal limb movements rally increased last week with severe difficulty in ambulation I feel she probably had this new stroke then. allow permissive hypertension for 48 hours so will hold lisinopril and torsemide. continue Betablocker, plavix start ASA 81 will get new bilateral carotid US and echocardiogram. appreciate neurology consult. Restless leg syndrome, periodic limb movement disorder will increase requip to tid. will also get a cervical MRI Severe Anemia no h/o overt bleeding severe iron deficiency and Vit B12 deficiency will get stool for occult blood. will give venofer and Vit b12 injections x 3 then every week. PRBC transfusion tomorrow. CKD stage 3 creatinine close to baseline. Diabetes with peripheral neuropathy her sugars are much better controlled after stopping her meds for michelle sy ndrome continue glipizide. Chronic diastolic CHF she is euvolemic now will hold torsemide for now. coronary artery disease with history of stents in the past, continue betablocker, statin , plavix and imbur. Dyslipidemia continue statin Severe ALEX on CPAP with moderate pulmonary hypertension use own CPAP H/O severe right carotid artery stenosis s/p CEA. H/o bladder cancer s/p radical cystectomy and creation of ileal conduit has urostomy bag in place. DVT prophylaxis orderd. Plan/VTE VTE Prophylaxis Ordered?: Yes VS, I&O, 24H, Fishbone Vital Signs/I&O Vital Signs Date Time Temp Pulse Resp B/P (MAP) Pulse Ox O2 Delivery O2 Flow Rate FiO2 06/23/18 08:54 64 154/80 06/23/18 06:00 97.1 18 96 06/21/18 15:55 Room Air I&O- Last 24 Hours up to 6 AM 06/23/18 06:00 Intake Total 2050 ml Output Total 1900 ml Balance 150 ml Laboratory Data 24H LABS Laboratory Tests 2 06/22/18 12:29: Bedside Glucose (Misc Panel) 132H 06/22/18 16:55: Bedside Glucose (Misc Panel) 175H 06/22/18 18:19: Immature Granulocyte % (Auto) 0.3, White Blood Count 5.9, Red Blood Count 2.88L, Hemoglobin 7.8L, Hematocrit 25.7L, Mean Corpuscular Volume 89.2, Mean Co rpuscular Hemoglobin 27.1, Mean Corpuscular Hemoglobin Concent 30.4L, Red Cell Distribution Width 13.2, Platelet Count 235, Neutrophils (%) (Auto) 56.7, Lymphocytes (%) (Auto) 32.7, Monocytes (%) (Auto) 9.1H, Eosinophils (%) (Auto) 0.7, Basophils (%) (Auto) 0.5, Neutrophils # (Auto) 3.4, Lymphocytes # (Auto) 1.9, Monocytes # (Auto) 0.5, Eosinophils # (Auto) 0.0, Basophils # (Auto) 0.0, Nucleated Red Blood Cells % (auto) 0.0 06/22/18 20:39: Bedside Glucose (Misc Panel) 175H 06/23/18 05:22: Immature Granulocyte % (Auto) 0.4, White Blood Count 6.7, Red Blood Count 2.88L, Hemoglobin 7.6L, Hematocrit 25.7L, Mean Corpuscular Volume 89.2, Mean Corpuscular Hemoglobin 26.4L, Mean Corpuscular Hemoglobin Concent 29.6L, Red Cell Distribution Width 13.2, Platelet Count 242, Neutrophils (%) (Auto) 62.3, Lymphocytes (%) (Auto) 26.9, Monocytes (%) (Auto) 9.2H, Eosinophils (%) (Auto) 0.9, Basophils (%) (Auto) 0.3, Neutrophils # (Auto) 4.2, Lymphocytes # (Auto) 1 .8, Monocytes # (Auto) 0.6, Eosinophils # (Auto) 0.1, Basophils # (Auto) 0.0, Nucleated Red Blood Cells % (auto) 0.0, Anion Gap 7L, Glomerular Filtration Rate 43.4, Blood Urea Nitrogen 22H, Creatinine 1.29, Sodium Level 142, Potassium Level 4.1, Chloride Level 107, Carbon Dioxide Level 28, Calcium Level 8.6L CBC/BMP Laboratory Tests 06/22/18 18:19 Red Blood Count 2.88 L, Mean Corpuscular Volume 89.2, Mean Corpuscular Hemoglobin 27.1, Mean Corpuscular Hemoglobin Concent 30.4 L, Red Cell Distribution Width 13.2, Neutrophils (%) (Auto) 56.7, Lymphocytes (%) (Auto) 32.7, Monocytes (%) (Auto) 9.1 H, Eosinophils (%) (Auto) 0.7, Basophils (%) (Auto) 0.5, Neutrophils # (Auto) 3.4, Lymphocytes # (Auto) 1.9, Monocytes # (Auto) 0.5, Eosinophils # (Auto) 0.0, Basophils # (Auto) 0.0 06/23/18 05:22 Red Blood Count 2.88 L, Mean Corpuscular Volume 89.2, Mean Corpuscular Hemoglobin 26.4 L, Mean Corpuscular Hemoglobin Concent 29.6 L, Red Cell Distribution Width 13.2, Neutrophils (%) (Auto) 62.3, Lymphocytes (%) (Auto) 26.9, Monocytes (%) (Auto) 9.2 H, Eosinophils (%) (Auto) 0.9, Basophils (%) (Auto) 0.3, Neutrophils # (Auto) 4.2, Lymphocytes # (Auto) 1.8, Monocytes # (Auto) 0.6, Eosinophils # (Auto) 0.1, Basophils # (Auto) 0.0, Calcium Level 8.6 L ABEL TAN MD June 23, 2018 11:45
[2018-06-23] MEDS: levETIRAcetam 250MG TABLET (KEPPRA) PO SCH ×2 (12:38→21:07)
[2018-06-23 14:00] VITALS: BP 154/60
[2018-06-23] MEDS: ACETAMINOPHEN 500 MG TAB PO PRN (21:05)
[2018-06-23] MEDS: PRAVASTATIN 20 MG TAB PO SCH (21:06)
[2018-06-23] MEDS: ISOSORBIDE MON. (IMDUR) 30 MG XR TAB PO SCH (21:07)
[2018-06-23] MEDS: traZODone 100 MG TAB PO SCH (21:07)
[2018-06-23 22:00] VITALS: BP 158/78
[2018-06-24 05:49] LABS: BASO % 0.6 % (0.0-1.0); EOS # 0.1 10^3/uL (0.0-0.50); EOS % 1.1 % (0.0-3.0); HEMATOCRIT 32.1 % (36.0-47.0); LYMPH # 2.5 10^3/uL (1.5-4.5); LYMPH % 34.4 % (24.0-44.0); MEAN CORPUSCULAR HEMOGLOBIN 26.9 pg (27.0-33.0); MEAN CORPUSCULAR HGB CONC 31.2 g/dl (32.0-36.5); MEAN CORPUSCULAR VOLUME 86.3 fl (80.0-96.0); MONO # 0.8 10^3/uL (0.0-0.8); MONO % 11.5 % (0.0-5.0); NEUTROPHILS # 3.7 10^3/uL (1.8-7.7); NEUTROPHILS % 51.8 % (36.0-66.0); PLATELET COUNT, AUTOMATED 219 10^3/uL (150-450); RED BLOOD COUNT 3.72 10^6/uL (4.00-5.40); WHITE BLOOD COUNT 7.1 10^3/uL (4.0-10.0)
[2018-06-24] MEDS: tiZANidine 4 MG TAB PO SCH ×3 (05:57→21:11)
[2018-06-24 06:00] VITALS: BP 156/64
[2018-06-24 06:15] LABS: CALCIUM LEVEL 9.4 MG/DL (8.8-10.2); CREATININE FOR GFR 1.5 MG/DL (0.55-1.30); GLOMERULAR FILTRATION RATE 36.4 (>39)
[2018-06-24] MEDS: HumaLOG INSULIN (NovoLOG) PER UNIT SC SCH ×4 (07:30→20:30)
[2018-06-24] MEDS: rOPINIRole 2MG TAB PO SCH ×3 (08:00→20:28)
[2018-06-24] MEDS: ASPIRIN 81 MG ENTERIC TAB PO SCH (08:00)
[2018-06-24] MEDS: levETIRAcetam 250MG TABLET (KEPPRA) PO SCH ×2 (08:00→20:29)
[2018-06-24] MEDS: CLOPIDOGREL 75 MG TAB PO SCH (08:01)
[2018-06-24] MEDS: TORSEMIDE 20 MG TAB PO SCH ×2 (08:01→17:10)
[2018-06-24] MEDS: glipiZIDE XL 5 MG TABCR PO SCH ×2 (08:01→20:29)
[2018-06-24] MEDS: SPIRONOLACTONE 50 MG TAB PO SCH ×2 (08:01→17:10)
[2018-06-24] MEDS: CARVedilol 12.5 MG TAB PO SCH ×2 (08:02→20:30)
[2018-06-24] MEDS: CYANOCOBALAMIN 1,000 MCG/ML VIAL (J3420) IM SCH (08:03)
--- NOTE | 2018-06-24 13:51 | IPNPDOC ---
Date Seen The patient was seen on 06/24/18. Progress Note Subjective 73 Y female, admitted for abnormal leg/arm movement and found to have pontine stroke consulted with neurologist still has abnormal jerking movements of the limbs but seems to be less no other events overnight Objective Physical Examination General Exam: sitting in the chair and looks comfortable Eye Exam: Positive: Conjunctiva & lids normal, EOMI ENT Exam: Positive: Atraumatic, Mucous membr. moist/pink, Pharynx Normal Neck Exam: Positive: Supple Chest Exam: Positive: Clear to auscultation, Normal air movement Heart Exam: Positive: Rate Normal, Regular Rhythm, Normal S1, Normal S2; Negative: Murmurs, Rubs Telemetry: Positive: No significant arrhythmia Abdomen Exam: Positive: Normal bowel sounds, Soft; Negative: Tenderness, Hepatospenomegaly Extremity Exam: Negative: Clubbing, Cyanosis, Edema Skin Exam: Positive: Nl turgor and temperature; Negative: Breakdown, Lesion Neuro Exam: nonfocal Psych, no acute psychosis Review of systems no fever no chills no WILLAMS no chest pain no abdominal pain no diarrhea no weakness of legs or arms Assessment /Plan Assessment 73 year old female with PMH of 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 Patient never had petrosal sinus sampling, Hypokalemia, Hypertension, insulin dependent Diabetes with peripheral neuropathy, coronary artery disease with history of stents in the past, Dyslipidemia Severe ALEX on CPAP, restless leg syndrome, periodic limb movement disorder, Diastolic CHF and chronic right heart failure, Moderate pulmonary hypertension, History of bladder cancer status post cystectomy in 2016, now has an ileal conduit with urostomy bag, Left adrenal mass, CKD stage 3, Chronic anemia cam to the ED due to a sudden episode of confusion and limpness of the whole body. Patient was here in the ED yesterday for increased abnormal jerky movements of the legs and was evaluated in the ED when everything looked to be at baseline. She got some ativan and felt better was ambulating ok with walker so was discharged from the ED. She came back again today with same increased jerky movements of the limbs. She says all night her legs were jumping and this morning when she tried to get up her legs gave way and whole body became limp. She does not remember the ambulance ride. She is admitted for altered mental status with uncontrolled jerky movements of the limbs with inability to ambulate. She Had MRI done in the ED which showed 1.Small acute left pontine infarction. 2. Old bilateral basal ganglia and right internal capsule lacunar infarctions. 3. Small vessel ischemic disease. 4. Mild volume loss. MRA was within normal limits. She was admitted for acute brain stem stroke. 1. Acute Ischemic [place] stroke: consulted with neurologist she is on ASA and Plavix carotid doppler no significant 2. Restless leg syndrome, periodic limb movement disorder on requip to tid. 3. Severe Anemia, s/p RBC transfusion no h/o overt bleeding; will supplement with iron and VitB12 4. CKD stage 3, creatinine close to baseline. 5. Diabetes with peripheral neuropathy, on insulin 6. Chronic diastolic CHF, compensated 7.Morbid obesity with ALEX on CPAP 8. H/o bladder cancer s/p radical cystectomy and creation of ileal conduit has urostomy bag in place. Plan/VTE VTE Prophylaxis Ordered?: Yes A-FIB/CHADSVASC A-FIB History Current/History of A-Fib/PAF?: No Current Oral Anticoagulant The: No VS, I&O, 24H, Fishbone Vital Signs/I&O Vital Signs Date Time Temp Pulse Resp B/P (MAP) Pulse Ox O2 Delivery O2 Flow Rate FiO2 06/24/18 08:02 60 136/62 06/24/18 06:00 96.5 20 95 06/21/18 15:55 Room Air I&O- Last 24 Hours up to 6 AM 06/24/18 06:00 Intake Total 3629 ml Output Total 2950 ml Balance 679 ml Laboratory Data 24H LABS Laboratory Tests 2 06/23/18 16:47: Bedside Glucose (Misc Panel) 152H 06/23/18 20:12: Bedside Glucose (Misc Panel) 146H 06/24/18 05:22: Immature Granulocyte % (Auto) 0.6, White Blood Count 7.1, Red Blood Count 3.72L, Hemoglobin 10.0#L, Hematocrit 32.1L, Mean Corpuscular Volume 86.3, Mean Corpuscular Hemoglobin 26.9L, Mean Corpuscular Hemoglobin Concent 31.2L, Red Cell Distribution Width 13.5, Platelet Count 219, Neutrophils (%) (Auto) 51.8, Lymphocytes (%) (Auto) 34.4, Monocytes (%) (Auto) 11.5H, Eosinophils (%) (Auto) 1.1, Basophils (%) (Auto) 0.6, Neutrophils # (Auto) 3.7, Lymphocytes # (Auto) 2.5, Monocytes # (Auto) 0.8, Eosinophils # (Auto) 0.1, Basophils # (Auto) 0.0, Nucleated Red Blood Cells % (auto) 0.0, Anion Gap 5L, Glomerular Filtration Rate 36.4L, Blood Urea Nitrogen 21H, Creatinine 1.50H, Sodium Level 142, Potassium Level 4.0, Chloride Level 107, Carbon Dioxide Level 30, Calcium Level 9.4 06/24/18 12:07: Bedside Glucose (Misc Panel) 191H CBC/BMP Laboratory Tests 06/24/18 05:22 Red Blood Count 3.72 L, Mean Corpuscular Volume 86.3, Mean Corpuscular Hemoglobin 26.9 L, Mean Corpuscular Hemoglobin Concent 31.2 L, Red Cell Distribution Width 13.5, Neutrophils (%) (Auto) 51.8, Lymphocytes (%) (Auto) 34.4, Monocytes (%) (Auto) 11.5 H, Eosinophils (%) (Auto) 1.1, Basophils (%) (Auto) 0.6, Neutrophils # (Auto) 3.7, Lymphocytes # (Auto) 2.5, Monocytes # (Auto) 0.8, Eosinophils # (Auto) 0.1, Basophils # (Auto) 0.0, Calcium Level 9.4 OTONIEL KEANE MD June 24, 2018 13:51
[2018-06-24 14:00] VITALS: BP 162/58
--- NOTE | 2018-06-24 16:41 | REP ---
MRI CERVICAL SPINE WITHOUT CONTRAST: HISTORY: Abnormal movements. A disc bulge is present at the C3-4 level. There is minimal effacement of the thecal sac without spinal cord compression. The C3 neural foramina are patent. A disc bulge is present at the C4-5 level. There is minimal effacement of the thecal sac without spinal cord compression. The C4 neural foramina are patent. A small central disc protrusion is present at the C5-6 level. There is minimal effacement of the thecal sac without spinal cord compression. The C5 neural foramina are patent. A disc bulge is present at the C6-7 level. There is minimal effacement of the thecal sac without spinal cord compression. The C6 neural foramina are patent. A disc bulge is present at the T1-2 level. There is minimal effacement of the thecal sac without spinal cord compression. The T1 neural foramina are patent on sagittal images. There is no other disc bulge or herniation. The spinal cord is normal in signal intensity. Normal signal intensity is present in the cervical vertebral bodies. IMPRESSION:There is cervical spondylosis at the C3-4 through C6-7 levels without spinal cord compression. Electronically Signed by Raza Larios MD 06/24/2018 04:48 P
[2018-06-24] MEDS: IRON POLYSAC (NIFEREX) 150 MG CAP PO SCH (20:28)
[2018-06-24] MEDS: traZODone 100 MG TAB PO SCH (20:29)
[2018-06-24] MEDS: PRAVASTATIN 20 MG TAB PO SCH (20:29)
[2018-06-24] MEDS: ISOSORBIDE MON. (IMDUR) 30 MG XR TAB PO SCH (20:29)
[2018-06-24 22:00] VITALS: BP 175/57
[2018-06-24] MEDS: ACETAMINOPHEN 500 MG TAB PO PRN (22:54)
[2018-06-24] MEDS: ANALGESIC BALM CRM 120 GM TOP PRN (22:55)
[2018-06-25] MEDS: tiZANidine 4 MG TAB PO SCH ×3 (05:45→21:37)
[2018-06-25 05:55] LABS: BASO % 0.4 % (0.0-1.0); EOS # 0.1 10^3/uL (0.0-0.50); EOS % 1.2 % (0.0-3.0); HEMOGLOBIN 10.2 g/dl (12.0-15.5); LYMPH # 2.4 10^3/uL (1.5-4.5); LYMPH % 31.8 % (24.0-44.0); MEAN CORPUSCULAR HEMOGLOBIN 26.7 pg (27.0-33.0); MEAN CORPUSCULAR HGB CONC 30.9 g/dl (32.0-36.5); MEAN CORPUSCULAR VOLUME 86.4 fl (80.0-96.0); MONO # 0.9 10^3/uL (0.0-0.8); MONO % 11.7 % (0.0-5.0); NEUTROPHILS # 4.2 10^3/uL (1.8-7.7); NEUTROPHILS % 54.6 % (36.0-66.0); PLATELET COUNT, AUTOMATED 224 10^3/uL (150-450); RED BLOOD COUNT 3.82 10^6/uL (4.00-5.40); WHITE BLOOD COUNT 7.6 10^3/uL (4.0-10.0)
[2018-06-25 06:00] VITALS: BP 141/70
[2018-06-25 06:20] LABS: CALCIUM LEVEL 9.2 MG/DL (8.8-10.2); CREATININE FOR GFR 1.65 MG/DL (0.55-1.30); GLOMERULAR FILTRATION RATE 32.6 (>39); POTASSIUM SERUM 3.9 MEQ/L (3.5-5.1)
[2018-06-25] MEDS: HumaLOG INSULIN (NovoLOG) PER UNIT SC SCH ×4 (07:30→21:00)
[2018-06-25] MEDS ORDERED: cloNIDine HCL 0.1 MG/24 HR PATCH TOP SCH (09:00)
[2018-06-25] MEDS: IRON POLYSAC (NIFEREX) 150 MG CAP PO SCH ×2 (09:03→21:37)
[2018-06-25] MEDS: CYANOCOBALAMIN 1,000 MCG/ML VIAL (J3420) IM SCH (09:03)
[2018-06-25] MEDS: rOPINIRole 2MG TAB PO SCH ×3 (09:03→21:36)
[2018-06-25] MEDS: SPIRONOLACTONE 50 MG TAB PO SCH ×2 (09:03→17:04)
[2018-06-25] MEDS: CLOPIDOGREL 75 MG TAB PO SCH (09:03)
[2018-06-25] MEDS: levETIRAcetam 250MG TABLET (KEPPRA) PO SCH ×2 (09:05→21:37)
[2018-06-25] MEDS: glipiZIDE XL 5 MG TABCR PO SCH ×2 (09:05→21:36)
[2018-06-25] MEDS: ASPIRIN 81 MG ENTERIC TAB PO SCH (09:05)
[2018-06-25] MEDS: TORSEMIDE 20 MG TAB PO SCH ×2 (09:05→17:05)
[2018-06-25] MEDS: CARVedilol 12.5 MG TAB PO SCH ×2 (09:05→21:00)
--- NOTE | 2018-06-25 14:16 | IPNPDOC ---
Date Seen The patient was seen on 06/25/18. Progress Note Subjective 73 Y female, admitted for abnormal leg/arm movement and found to have pontine stroke consulted with neurologist still has abnormal jerking movements of the limbs Objective Physical Examination General Exam: sitting in the chair and looks comfortable Eye Exam: Positive: Conjunctiva & lids normal, EOMI ENT Exam: Positive: Atraumatic, Mucous membr. moist/pink, Pharynx Normal Neck Exam: Positive: Supple Chest Exam: Positive: Clear to auscultation, Normal air movement Heart Exam: Positive: Rate Normal, Regular Rhythm, Normal S1, Normal S2; Negative: Murmurs, Rubs Telemetry: Positive: No significant arrhythmia Abdomen Exam: Positive: Normal bowel sounds, Soft; Negative: Tenderness, Hepatospenomegaly Extremity Exam: Negative: Clubbing, Cyanosis, Edema with involuntary jerks of arms and legs Skin Exam: Positive: Nl turgor and temperature; Negative: Breakdown, Lesion Neuro Exam: nonfocal Psych, no acute psychosis Review of systems no fever no chills no WILLAMS no chest pain no abdominal pain no diarrhea no weakness of legs or arms Assessment /Plan Assessment 73 year old female with PMH of 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 Patient never had petrosal sinus sampling, Hypokalemia, Hypertension, insulin dependent Diabetes with peripheral neuropathy, coronary artery disease with history of stents in the past, Dyslipidemia Severe ALEX on CPAP, restless leg syndrome, periodic limb movement disorder, Diastolic CHF and chronic right heart failure, Moderate pulmonary hypertension, History of bladder cancer status post cystectomy in 2016, now has an ileal conduit with urostomy bag, Left adrenal mass, CKD stage 3, Chronic anemia cam to the ED due to a sudden episode of confusion and limpness of the whole body. Patient was here in the ED yesterday for increased abnormal jerky movements of the legs and was evaluated in the ED when everything looked to be at baseline. She got some ativan and felt better was ambulating ok with walker so was discharged from the ED. She came back again today with same increased jerky movements of the limbs. She says all night her legs were jumping and this morning when she tried to get up her legs gave way and whole body became limp. She does not remember the ambulance ride. She is admitted for altered mental status with uncontrolled jerky movements of the limbs with inability to ambulate. She Had MRI done in the ED which showed 1.Small acute left pontine infarction. 2. Old bilateral basal ganglia and right internal capsule lacunar infarctions. 3. Small vessel ischemic disease. 4. Mild volume loss. MRA was within normal limits. She was admitted for acute brain stem stroke. 1. Acute Ischemic Pontine stroke: consulted with neurologist she is on ASA and Plavix carotid doppler not significant 2. Restless leg syndrome, periodic limb movement disorder on requip; still has multiple legs/arms jerks, will add ativan as needed 3. Severe Anemia, s/p RBC transfusion; HH stable no h/o overt bleeding; will supplement with iron and VitB12 4. CKD stage 3, creatinine close to baseline. 5. Diabetes with peripheral neuropathy, on insulin 6. Chronic diastolic CHF, compensated 7.Morbid obesity with ALEX on CPAP 8. H/o bladder cancer s/p radical cystectomy and creation of ileal conduit has urostomy bag in place. 9. Most likely she needs STR after stabilize her jerks A-FIB/CHADSVASC A-FIB History Current/History of A-Fib/PAF?: No Current Oral Anticoagulant The: No VS, I&O, 24H, Fishbone Vital Signs/I&O Vital Signs Date Time Temp Pulse Resp B/P (MAP) Pulse Ox O2 Delivery O2 Flow Rate FiO2 06/25/18 09:05 86 136/68 06/25/18 06:00 97.2 17 97 06/21/18 15:55 Room Air I&O- Last 24 Hours up to 6 AM 06/25/18 06:00 Intake Total 1190 ml Output Total 2500 ml Balance -1310 ml Laboratory Data 24H LABS Laboratory Tests 2 06/24/18 16:22: Bedside Glucose (Misc Panel) 160H 06/24/18 20:08: Bedside Glucose (Misc Panel) 163H 06/25/18 05:24: Immature Granulocyte % (Auto) 0.3, White Blood Count 7.6, Red Blood Count 3.82L, Hemoglobin 10.2L, Hematocrit 33.0L, Mean Corpuscular Volume 86.4, Mean Corpuscular Hemoglobin 26.7L, Mean Corpuscular Hemoglobin Concent 30.9L, Red Cell Distribution Width 13.4, Platelet Count 224, Neutrophils (%) (Auto) 54.6, Lymphocytes (%) (Auto) 31.8, Monocytes (%) (Auto) 11.7H, Eosinophils (%) (Auto) 1.2, Basophils (%) (Auto) 0.4, Neutrophils # (Auto) 4.2, Lymphocytes # (Auto) 2.4, Monocytes # (Auto) 0.9H, Eosinophils # (Auto) 0.1, Basophils # (Auto) 0.0, Nucleated Red Blood Cells % (auto) 0.0, Anion Gap 8, Glomerular Filtration Rate 32.6L, Blood Urea Nitrogen 28H, Creatinine 1.65H, Sodium Level 141, Potassium Level 3.9, Chloride Level 103, Carbon Dioxide Level 30, Calcium Level 9.2 06/25/18 11:40: Bedside Glucose (Misc Panel) 162H CBC/BMP Laboratory Tests 06/25/18 05:24 Red Blood Count 3.82 L, Mean Corpuscular Volume 86.4, Mean Corpuscular Hemoglobin 26.7 L, Mean Corpuscular Hemoglobin Concent 30.9 L, Red Cell Distribution Width 13.4, Neutrophils (%) (Auto) 54.6, Lymphocytes (%) (Auto) 31.8, Monocytes (%) (Auto) 11.7 H, Eosinophils (%) (Auto) 1.2, Basophils (%) (Auto) 0.4, Neutrophils # (Auto) 4.2, Lymphocytes # (Auto) 2.4, Monocytes # (Auto) 0.9 H, Eosinophils # (Auto) 0.1, Basophils # (Auto) 0.0, Calcium Level 9.2 OTONIEL KEANE MD June 25, 2018 14:16
[2018-06-25] MEDS: LORazepam 0.5 MG TAB PO PRN (15:58)
--- NOTE | 2018-06-25 17:47 | ECHO ---
DATE OF PROCEDURE: 06/24/2018 Date of : 1945 Age: 73 Gender: Female Height: 62 inches Weight: 178 pounds Body surface area: 1.82 meters squared Inpatient: 4 [facility]ick, room 4207 REFERRING PHYSICIAN: Dr. Annita Bautista INDICATION: CVA. MEASUREMENTS: 2D Measurements: RV: 3.8 cm LV: 4.7 cm Septum: 1.3 cm Posterior wall: 1.3 cm Aortic root: 3.0 cm LA: 4.2 cm LVEF: 75% Doppler Measurements: AV: 1.5 meters per second LVOT: 0.9 meters per second LVOT diameter: 1.8 cm MV-E: 83, A: 120, EA ratio: 0.7 Early mitral deceleration time: 218 milliseconds E prime: 5.2, A prime: 9, E/E prime ratio: 16 Pulmonary capillary wedge pressure: 19.2 mmHg PV: 0.8 meters per second Pulmonary artery acceleration time: 127 milliseconds PASP: 22 mmHg IVC: 1.8 cm COMMENT: Normal sinus rhythm without intraventricular conduction disturbance. M-mode and two-dimensional echocardiography was performed with pulsed, continuous wave, color flow and tissue Doppler studies. Mild concentric left ventricular hypertrophy with hyperkinetic wall motion. Mildly dilated left atrium with impairment of left ventricular (LV) diastolic function and at least mildly elevated mean left atrial pressure. Normal right heart chamber sizes and motion and estimated pulmonary arterial pressure. Normal inferior vena cava (IVC) size and collapse against an elevated central venous pressure. Mild aortic valvular sclerosis without functional abnormality. Normal aortic root size. Normal appearing and functioning mitral and tricuspid valves. No apparent intracardiac mass. Small posterior and anterior echo-free spaces - consistent with small-moderate size pericardial effusion without any sign of cardiac chamber compression. If a cardiac source of embolic material is seriously suspect, we would recommend a transesophageal echocardiogram as being the investigation of choice. The observed small collection of pericardial fluid was actually present on prior chest CT scan in March when I reviewed these films myself, but, interestingly, no comment was made by radiology. It does not appear to be changed. MTDD
[2018-06-25] MEDS: ISOSORBIDE MON. (IMDUR) 30 MG XR TAB PO SCH (21:00)
[2018-06-25] MEDS: PRAVASTATIN 20 MG TAB PO SCH (21:36)
[2018-06-25] MEDS: traZODone 100 MG TAB PO SCH (21:38)
[2018-06-25 22:00] VITALS: BP 103/65
[2018-06-26] MEDS: LORazepam 0.5 MG TAB PO PRN (00:21)
[2018-06-26] MEDS: ACETAMINOPHEN 500 MG TAB PO PRN ×2 (00:58→23:30)
[2018-06-26] MEDS: tiZANidine 4 MG TAB PO SCH ×3 (05:30→21:08)
[2018-06-26 06:00] VITALS: BP 133/66
[2018-06-26 06:05] LABS: BASO % 0.5 % (0.0-1.0); EOS # 0.1 10^3/uL (0.0-0.50); EOS % 1.2 % (0.0-3.0); HEMATOCRIT 36.1 % (36.0-47.0); LYMPH # 2.6 10^3/uL (1.5-4.5); LYMPH % 33.2 % (24.0-44.0); MEAN CORPUSCULAR HEMOGLOBIN 26.6 pg (27.0-33.0); MEAN CORPUSCULAR HGB CONC 30.5 g/dl (32.0-36.5); MEAN CORPUSCULAR VOLUME 87.4 fl (80.0-96.0); MONO # 0.8 10^3/uL (0.0-0.8); MONO % 10.8 % (0.0-5.0); NEUTROPHILS # 4.2 10^3/uL (1.8-7.7); NEUTROPHILS % 53.9 % (36.0-66.0); PLATELET COUNT, AUTOMATED 231 10^3/uL (150-450); RED BLOOD COUNT 4.13 10^6/uL (4.00-5.40); WHITE BLOOD COUNT 7.7 10^3/uL (4.0-10.0)
[2018-06-26 06:24] LABS: CALCIUM LEVEL 8.8 MG/DL (8.8-10.2); CREATININE FOR GFR 2.06 MG/DL (0.55-1.30); GLOMERULAR FILTRATION RATE 25.3 (>39); POTASSIUM SERUM 4.1 MEQ/L (3.5-5.1)
[2018-06-26] MEDS: rOPINIRole 2MG TAB PO SCH ×3 (08:22→21:09)
[2018-06-26] MEDS: HumaLOG INSULIN (NovoLOG) PER UNIT SC SCH ×4 (08:22→21:00)
[2018-06-26] MEDS: levETIRAcetam 250MG TABLET (KEPPRA) PO SCH ×2 (08:23→21:08)
[2018-06-26] MEDS: SPIRONOLACTONE 50 MG TAB PO SCH ×2 (08:23→16:23)
[2018-06-26] MEDS: ASPIRIN 81 MG ENTERIC TAB PO SCH (08:23)
[2018-06-26] MEDS: CLOPIDOGREL 75 MG TAB PO SCH (08:23)
[2018-06-26] MEDS: CARVedilol 12.5 MG TAB PO SCH ×2 (08:23→21:10)
[2018-06-26] MEDS: IRON POLYSAC (NIFEREX) 150 MG CAP PO SCH ×2 (08:23→21:08)
[2018-06-26] MEDS: glipiZIDE XL 5 MG TABCR PO SCH ×2 (08:23→21:09)
[2018-06-26] MEDS: TORSEMIDE 20 MG TAB PO SCH (08:24)
[2018-06-26] MEDS: CYANOCOBALAMIN 1,000 MCG/ML VIAL (J3420) IM SCH (08:24)
--- NOTE | 2018-06-26 08:40 | IPNPDOC ---
Date Seen The patient was seen on 06/26/18. Progress Note Subjective 73 Y female, admitted for abnormal leg/arm movement and found to have pontine stroke consulted with neurologist still has abnormal jerking movements of the limbs Ativan was given yesterday no events overnight Objective Physical Examination General Exam: AA Ox3, comfortable Eye Exam: Positive: Conjunctiva & lids normal, EOMI ENT Exam: Positive: Atraumatic, Mucous membr. moist/pink, Pharynx Normal Neck Exam: Positive: Supple Chest Exam: Positive: Clear to auscultation, Normal air movement Heart Exam: Positive: Rate Normal, Regular Rhythm, Normal S1, Normal S2; Negative: Murmurs, Rubs Telemetry: Positive: No significant arrhythmia Abdomen Exam: Positive: Normal bowel sounds, Soft; Negative: Tenderness, Hepatospenomegaly Extremity Exam: Negative: Clubbing, Cyanosis, Edema with involuntary jerks of arms and legs Skin Exam: Positive: Nl turgor and temperature; Negative: Breakdown, Lesion Neuro Exam: nonfocal Psych, no acute psychosis Review of systems no fever no chills no WILLAMS no chest pain no abdominal pain no diarrhea no weakness of legs or arms Assessment /Plan Assessment 73 year old female with PMH of multiple embolic Ischemic strokes in June 2017 and feb 2018, Severe right carotid artery stenosis status post right carotid endarterectomy on 05/29/2017, Baldwin syndrome with negative adrenal vein sampling. Patient never had petrosal sinus sampling, Hypokalemia, Hypertension, insulin dependent Diabetes with peripheral neuropathy, coronary artery disease with history of stents in the past, Dyslipidemia Severe ALEX on CPAP, restless leg syndrome, periodic limb movement disorder, Diastolic CHF and chronic right heart failure, Moderate pulmonary hypertension, History of bladder cancer status post cystectomy in 2016, now has an ileal conduit with urostomy bag, Left adrenal mass, CKD stage 3, Chronic anemia cam to the ED due to a sudden episode of confusion and limpness of the whole body. Patient was here in the ED yesterday for increased abnormal jerky movements of the legs and was evaluated in the ED when everything looked to be at baseline. She got some ativan and felt better was ambulating ok with walker so was discharged from the ED. She came ba again today with same increased jerky movements of the limbs. She says all night her legs were jumping and this morning when she tried to get up her legs gave way and whole body became limp. She does not remember the ambulance ride. She is admitted for altered mental status with uncontrolled jerky movements of the limbs with inability to ambulate. She Had MRI done in the ED which showed 1.Small acute left pontine infarction. 2. Old bilateral basal ganglia and right internal capsule lacunar infarctions. 3. Small vessel ischemic disease. 4. Mild volume loss. MRA was within normal limits. She was admitted for acute brain stem stroke. 1. Acute Ischemic Pontine stroke: consulted with neurologist she is on ASA and Plavix carotid doppler not significant 2. Restless leg syndrome, periodic limb movement disorder on requip; still has multiple legs/arms jerks, Ativen was added to control her jerks 3. Severe Anemia, s/p RBC transfusion; HH stable no h/o overt bleeding; will supplement with iron and VitB12 4. CKD stage 3, creatinine close to baseline. 5. Diabetes with peripheral neuropathy, on insulin 6. Chronic diastolic CHF, compensated 7.Morbid obesity with ALEX on CPAP 8. H/o bladder cancer s/p radical cystectomy and creation of ileal conduit has urostomy bag in place. A-FIB/CHADSVASC A-FIB History Current/History of A-Fib/PAF?: No Current Oral Anticoagulant The: No VS, I&O, 24H, Fishbone Vital Signs/I&O Vital Signs Date Time Temp Pulse Resp B/P (MAP) Pulse Ox O2 Delivery O2 Flow Rate FiO2 06/26/18 08:23 60 130/60 06/26/18 06:00 96.6 18 98 06/21/18 15:55 Room Air I&O- Last 24 Hours up to 6 AM 06/26/18 05:59 Intake Total 1400 ml Output Total 1550 ml Balance -150 ml Laboratory Data 24H LABS Laboratory Tests 2 06/25/18 11:40: Bedside Glucose (Misc Panel) 162H 06/25/18 16:37: Bedside Glucose (Misc Panel) 155H 06/25/18 20:32: Bedside Glucose (Misc Panel) 130H 06/26/18 05:27: Immature Granulocyte % (Auto) 0.4, White Blood Count 7.7, Red Blood Count 4.13, Hemoglobin 11.0L, Hematocrit 36.1, Mean Corpuscular Volume 87.4, Mean Corpuscular Hemoglobin 26.6L, Mean Corpuscular Hemoglobin Concent 30.5L, Red Cell Distribution Width 13.5, Platelet Count 231, Neutrophils (%) (Auto) 53.9, Lymphocytes (%) (Auto) 33.2, Monocytes (%) (Auto) 10.8H, Eosinophils (%) (Auto) 1.2, Basophils (%) (Auto) 0.5, Neutrophils # (Auto) 4.2, Lymphocytes # (Auto) 2.6, Monocytes # (Auto) 0.8, Eosinophils # (Auto) 0.1, Basophils # (Auto) 0.0, Nucleated Red Blood Cells % (auto) 0.0, Anion Gap 8, Glomerular Filtration Rate 25.3L, Blood Urea Nitrogen 38H, Creatinine 2.06H, Sodium Level 140, Potassium Level 4.1, Chloride Level 103, Carbon Dioxide Level 29, Calcium Level 8.8 CBC/BMP Laboratory Tests 06/26/18 05:27 Red Blood Count 4.13, Mean Corpuscular Volume 87.4, Mean Corpuscular Hemoglobin 26.6 L, Mean Corpuscular Hemoglobin Concent 30.5 L, Red Cell Distribution Width 13.5, Neutrophils (%) (Auto) 53.9, Lymphocytes (%) (Auto) 33.2, Monocytes (%) (Auto) 10.8 H, Eosinophils (%) (Auto) 1.2, Basophils (%) (Auto) 0.5, Neutrophils # (Auto) 4.2, Lymphocytes # (Auto) 2.6, Monocytes # (Auto) 0.8, Eosinophils # (Auto) 0.1, Basophils # (Auto) 0.0, Calcium Level 8.8 OTONIEL KEANE MD June 26, 2018 08:40
[2018-06-26] MEDS: LORazepam 0.5 MG TAB PO SCH ×3 (09:22→21:08)
[2018-06-26 14:00] VITALS: BP 120/58
[2018-06-26] MEDS ORDERED: NYSTATIN 100,000 UNITS/GM TOPICAL PWD 15 GM TOP PRN (19:30)
[2018-06-26] MEDS: PRAVASTATIN 20 MG TAB PO SCH (21:09)
[2018-06-26] MEDS: traZODone 100 MG TAB PO SCH (21:09)
[2018-06-26] MEDS: ISOSORBIDE MON. (IMDUR) 30 MG XR TAB PO SCH (21:09)
[2018-06-26 22:00] VITALS: BP 149/75
[2018-06-27 06:00] VITALS: BP 137/70
[2018-06-27] MEDS: tiZANidine 4 MG TAB PO SCH (06:05)
[2018-06-27 06:32] LABS: CALCIUM LEVEL 8.9 MG/DL (8.8-10.2); CREATININE FOR GFR 1.66 MG/DL (0.55-1.30); GLOMERULAR FILTRATION RATE 32.4 (>39); POTASSIUM SERUM 4.2 MEQ/L (3.5-5.1)
[2018-06-27] MEDS: CYANOCOBALAMIN 1,000 MCG/ML VIAL (J3420) IM SCH (08:20)
[2018-06-27] MEDS: rOPINIRole 2MG TAB PO SCH (08:20)
[2018-06-27] MEDS: levETIRAcetam 250MG TABLET (KEPPRA) PO SCH (08:21)
[2018-06-27] MEDS: IRON POLYSAC (NIFEREX) 150 MG CAP PO SCH (08:21)
[2018-06-27] MEDS: glipiZIDE XL 5 MG TABCR PO SCH (08:21)
[2018-06-27] MEDS: CLOPIDOGREL 75 MG TAB PO SCH (08:21)
[2018-06-27] MEDS: ASPIRIN 81 MG ENTERIC TAB PO SCH (08:21)
[2018-06-27] MEDS: LORazepam 0.5 MG TAB PO SCH (08:21)
[2018-06-27] MEDS: SPIRONOLACTONE 50 MG TAB PO SCH (08:21)
[2018-06-27 08:22] VITALS: BP 136/70
[2018-06-27] MEDS: HumaLOG INSULIN (NovoLOG) PER UNIT SC SCH (08:22)
[2018-06-27] MEDS: CARVedilol 12.5 MG TAB PO SCH (08:22)
[2018-06-27] MEDS ORDERED: LORazepam 0.5 MG TAB PO SCH ×2 (09:00→16:00)
[2018-06-27] MEDS ORDERED: TORS20TA2 PO (10:44)
[2018-06-27] MEDS ORDERED: ATIV1TAB10 PO (10:44)
[2018-06-27] MEDS ORDERED: KLOR20TA42 PO (10:44)
[2018-06-27] MEDS ORDERED: KEPP250T5 PO (10:44)
[2018-06-27] MEDS ORDERED: ATIV1TAB7 PO (10:44)
--- NOTE | 2018-06-27 10:59 | DS.PDOC ---
Discharge Summary General Date of Admission June 21, 2018 at 13:35 Date of Discharge June 27, 2018 Primary Care Physician: [facility] Attending Physician: OTONIEL KEANE MD Specialist/Consultants Involve: PRISCA GARCIA MD Discharge Summary PROCEDURES PERFORMED DURING STAY: none ADMITTING DIAGNOSES: acute Pontine ischemic stroke arms and legs jerks DISCHARGE DIAGNOSES: 1. Left pontine acute-subacute ischemic stroke. 2. History of multiple bilateral strokes in 2017 and 2018. 3. Right carotid artery stenosis and patient is status post right carotid endarterectomy. 4. Iron deficiency Anemia, s/p transfusion 5. Vitamin B12 deficiency 6. HTN 7. chronic diastolic CHF 8. DMT2 9. Restless leg syndrome 10 ALEX on CPAP 11 Morbid obesity COMPLICATIONS/CHIEF COMPLAINT: Abdnormal Movement Of Lower Extremity Arms HISTORY OF PRESENT ILLNESS: 73 year old female with PMH of multiple embolic Ischemic strokes in June 2017 and feb 2018, Severe right carotid artery stenosis status post right carotid endarterectomy on 05/29/2017, Dee syndrome, Hypertension, insulin dependent Diabetes with peripheral neuropathy, coronary artery disease with history of stents in the past, Dyslipidemia Severe ALEX on CPAP, restless leg syndrome, periodic limb movement disorder, Diastolic CHF, bladder cancer status post cystectomy in 2016, now has an ileal conduit with urostomy bag, Left adrenal mass, CKD stage 3, Chronic anemia came to the ED due to a sudden episode of confusion and limpness of the whole body. Patient was here in the ED the day before for increased abnormal jerky movements of the legs and was evaluated in the ED when everything looked to be at baseline. She got some ativan and felt better was ambulating ok with walker so was discharged from the ED. She came back again today with same increased jerky movements of the limbs both the upper and lower limbs which was much worse than usual with incoordination of the upper extremities. She says all night her legs were jumping and this morning when she tried to get up her legs gave way and whole body became limp. She does not remember the ambulance ride. She is admitted for altered mental status with uncontrolled jerky movements of the limbs with inability to ambulate. She Had MRI done in the ED which showed 1.Small acute left pontine infarction. 2. Old bilateral basal ganglia and right internal capsule lacunar infarctions. 3. Small vessel ischemic disease. 4. Mild volume loss. she was admitted on june 21, 2108 HOSPITAL COURSE: after admission, she was consulted with Neurologist and recommended to continue ASA and plavix; she also had echocardiogram and carotid doppler which are not significant. she was found to have significant iron deficiency anemia and there is no evidence for GI bleed and treated with transfusion and iron supplement B12 supplement. she had neck MRI done and which is not significant. Regarding her abnormal legs/arms, Dr Alvarez increased his requib but it seems like not much help. so I started her on Ativan and it seems like did help her. Now she is medically stable and will discharge to STR today. DISCHARGE MEDICATIONS: Please see below. ALLERGIES: Please see below. PHYSICAL EXAMINATION ON DISCHARGE: VITAL SIGNS: Please see below. GENERAL: AA Ox3, comfortable HEENT: atraumatic NECK: no JVD CARDIOVASCULAR EXAMINATION: S1S2 regular RESPIRATORY EXAMINATION: clear, no wheezing ABDOMINAL EXAMINATION:soft BS + nontender EXTREMITIES: no edema SKIN: no rash NEUROLOGICAL EXAMINATION:non focal PSYCHIATRIC EXAMINATION:no acute psychosis LABORATORY DATA: Please see below. IMAGING: Brain/NECK MRI, echocardiogram, carotid doppler PROGNOSIS: fair ACTIVITY: as tolerated DIET: diabetic and cardiac diet DISPOSITION: [facility] for [facility] ITEMS TO FOLLOWUP ON ON OUTPATIENT: 1. PCP in 1-[address] Alvarez neurologist 3-4 weeks DISCHARGE CONDITION: stable TIME SPENT ON DISCHARGE: Greater than 40 minutes. Vital Signs/I&Os Vital Signs Date Time Temp Pulse Resp B/P (MAP) Pulse Ox O2 Delivery O2 Flow Rate FiO2 06/27/18 08:22 60 136/70 06/27/18 06:00 96.5 18 98 06/21/18 15:55 Room Air I&O- Last 24 Hours up to 6 AM 06/27/18 06:00 Intake Total 1405 ml Output Total 1750 ml Balance -345 ml Laboratory Data Labs 24H Laboratory Tests 2 06/26/18 12:16: Bedside Glucose (Misc Panel) 241H 06/26/18 17:01: Bedside Glucose (Misc Panel) 222H 06/26/18 20:38: Bedside Glucose (Misc Panel) 221H 06/27/18 05:31: Anion Gap 5L, Glomerular Filtration Rate 32.4L, Blood Urea Nitrogen 44H, Creatinine 1.66H, Sodium Level 140, Potassium Level 4.2, Chloride Level 105, Carbon Dioxide Level 30, Calcium Level 8.9 06/27/18 06:02: Bedside Glucose (Misc Panel) 106 CBC/BMP Laboratory Tests 06/27/18 05:31 Calcium Level 8.9 FSBS Laboratory Tests Test 06/26/18 12:16 06/26/18 17:01 06/26/18 20:38 06/27/18 06:02 Range/Units Bedside Glucose (Misc Panel) 241 222 221 106 83-110 MG/DL Discharge Medications Scheduled Aspirin (Aspirin EC) 81 Mg Tab, 81 MG PO DAILY, (Reported) Carvedilol (Carvedilol) 25 Mg Tablet, 25 MG PO BID, (Reported) Cholecalciferol (Vitamin D3) (Vitamin D3) 2,000 Unit Cap, 2,000 UNIT PO BID, (Reported) Clonidine (Clonidine) 0.1 Mg Patch.tdwk, 0.1 MG TD 1XWK, (Reported) MONDAYS Clopidogrel Bisulfate (Clopidogrel) 75 Mg Tab, 75 MG PO DAILY, (Reported) Cyanocobalamin (Vitamin B-12) (Vitamin B12) 5,000 Mcg Tab.rapdis, 5,000 MCG PO DAILY Ferrous Sulfate (Iron) 325 Mg Tablet, 325 MG PO DAILY Glipizide (Glipizide ER) 10 Mg Tab.er.24, 10 MG PO BID, (Reported) Insulin Human Lispro (Novolog) 100 U/Ml Inj, 1 DOSE SC AC, (Reported) PER SLIDING SCALE, 20-25 UNITS Isosorbide Mononitrate (Isosorbide Mononitrate ER) 30 Mg Tab.er.24h, 30 MG PO QHS, (Reported) Levetiracetam (Keppra) 250 Mg Tablet, 250 MG PO BID Lisinopril (Lisinopril) 20 Mg Tablet, 20 MG PO DAILY, (Reported) THIS MEDICATION WAS RESTARTED 06/20/18. PATIENT HAS NOT PICKED UP REFILL, BUT DID TAKE 30MG THIS MORNING FROM OLD RX Lorazepam (Ativan) 1 Mg Tablet, 1 MG PO QHS Lorazepam (Ativan) 0.5 Mg Tablet, 0.5 MG PO BID@0900,1600 Magnesium Oxide (Magnesium Oxide) 500 Mg Tab, 500 MG PO BID, (Reported) Potassium Chloride (Klor-Con M20) 20 Meq Tabcr, 40 MEQ PO DAILY Pravastatin Sodium (Pravastatin Sodium) 40 Mg Tab, 40 MG PO QHS, (Reported) Ropinirole HCl (Ropinirole HCl) 1 Mg Tablet, 2 MG PO QHS, (Reported) Spironolactone (Spironolactone) 50 Mg Tablet, 100 MG PO BID, (Reported) DISCHARGE INSTRUCTIONS FROM 06/10/18 STATE 50MG BID, CAREGIVER STATES SHE HAS BEEN TAKING 100MG BID. Tizanidine HCl (Tizanidine HCl) 2 Mg Tablet, 2 MG PO TID, (Reported) Torsemide (Torsemide) 20 Mg Tablet, 20 MG PO BID Trazodone HCl (Trazodone HCl) 100 Mg Tab, 100 MG PO QHS, (Reported) Allergies Coded Allergies: No Known Allergies (Unverified , 05/27/18) OTONIEL KEANE MD June 27, 2018 10:59
[2018-06-27] MEDS ORDERED: HM V5000 PO (11:16)
[2018-06-27] MEDS ORDERED: IRON65TA2 PO (11:17)
[2018-06-27] MEDS: ACETAMINOPHEN 500 MG TAB PO PRN (11:51)
[2018-06-27] MEDS ORDERED: LORazepam 1 MG TAB PO SCH (21:00)
== END 2018-06-27 12:24 | DRG 65 ==
LOC: EDBD 08:57 → M ED 08:57 → M ED INP 13:35 → M MSPAV 15:47
PROVIDERS: ADMIT Internal Medicine Nephrology; ATTEND Hospitalist
PROC: 30233N1 Transfusion of Nonautologous Red Blood Cells into Peripheral Vein, Percutaneous Approach (ICD-10-PCS; principal; 2018-06-23)
DX: I63.9 Cerebral infarction, unspecified (principal); I50.32 Chronic diastolic (congestive) heart failure; G47.33 Obstructive sleep apnea (adult) (pediatric); E66.01 Morbid (severe) obesity due to excess calories; G25.81 Restless legs syndrome; E53.8 Deficiency of other specified B group vitamins; E11.51 Type 2 diabetes mellitus with diabetic peripheral angiopathy without gangrene; D50.9 Iron deficiency anemia, unspecified; I11.0 Hypertensive heart disease with heart failure; Z79.4 Long term (current) use of insulin; I25.10 Atherosclerotic heart disease of native coronary artery without angina pectoris; Z95.2 Presence of prosthetic heart valve; E78.5 Hyperlipidemia, unspecified; Z85.51 Personal history of malignant neoplasm of bladder; G47.61 Periodic limb movement disorder; Z79.899 Other long term (current) drug therapy; Z79.82 Long term (current) use of aspirin; I27.20 Pulmonary hypertension, unspecified; Z87.891 Personal history of nicotine dependence

== ENCOUNTER → 2018-09-03 | Outpatient (REF) | payer OTHER ==
[~2018-09-03] MED LIST changes: +ATIV1TAB10 PO; +ATIV1TAB7 PO; +HM V5000 PO; +IRON65TA2 PO; +KEPP250T5 PO
== END ==
LOC: M LAB REF 17:18
PROVIDERS: ATTEND Internal Medicine Nephrology
DX: D51.9 Vitamin B12 deficiency anemia, unspecified (principal)

== ENCOUNTER → 2018-09-10 | Outpatient (REF) | payer OTHER | LOC: M SMT 16:54 | PROVIDERS: ATTEND Urology | DX: Z85.51 Personal history of malignant neoplasm of bladder (principal) ==

== ENCOUNTER → 2018-10-03 | Outpatient (REF) | payer MEDICARE ==
[~2018-10-03] MED LIST changes: +METF-791 PO; -METF500T4 PO
[2018-10-03 18:25] LABS: PERCENT SATURATION 17.4 % (13.2-45.0)
== END ==
LOC: M LAB REF 17:16
PROVIDERS: ATTEND Internal Medicine Nephrology
DX: D50.9 Iron deficiency anemia, unspecified (principal)

== ENCOUNTER → 2018-12-03 | Outpatient (REF) | payer MEDICARE ==
[2018-12-03 16:03] LABS: CALCIUM LEVEL 8.9 MG/DL (8.8-10.2); CREATININE FOR GFR 1.65 MG/DL (0.55-1.30); GLOMERULAR FILTRATION RATE 32.6 (>39); POTASSIUM SERUM 4.4 MEQ/L (3.5-5.1)
== END ==
LOC: M LABDRAW1 14:24
PROVIDERS: ATTEND Internal Medicine Endocrinology, Diabetes & Metabolism
DX: E11.65 Type 2 diabetes mellitus with hyperglycemia (principal)

== ENCOUNTER 2019-02-28 07:30 | Inpatient (IN) | payer MEDICARE ==
[~2019-02-28] VITALS: Ht 160 cm; Wt 87.2 kg
[~2019-02-28 07:30] MED LIST changes: +BENA40TA5 PO; -BENA40TA7 PO; -TRAZ10TA PO; +TRAZ1TAB12 PO
--- NOTE | 2019-02-28 08:19 | REP ---
CT brain without contrast: History: CVA. Comparison head CT study June 20, 2018. CT findings: Digital preliminary advance scout radiograph is unremarkable. Bone window settings demonstrate an intact bony calvarium.. Paranasal sinuses are clear. No intraorbital abnormality is seen. There is generalized volume loss again noted. Vascular calcification is visible in the distal carotid arteries as before. Small vessel changes are noted in the periventricular white matter of the frontal lobes. There is no evidence of intracranial hemorrhage. No infarct, mass, extra-axial fluid collection or midline shift is seen. Impression: No acute intracranial abnormality. Electronically Signed by Jair Aguilar MD 02/28/2019 08:11 A
[2019-02-28 08:44] LABS: BASO % 0.6 % (0.0-1.0); EOS # 0.1 10^3/uL (0.0-0.5); EOS % 1.5 % (0.0-3.0); HEMATOCRIT 34.9 % (36.0-47.0); LYMPH # 1.5 10^3/uL (1.5-5.0); LYMPH % 27.6 % (24.0-44.0); MEAN CORPUSCULAR HEMOGLOBIN 31.1 pg (27.0-33.0); MEAN CORPUSCULAR HGB CONC 31.5 g/dl (32.0-36.5); MEAN CORPUSCULAR VOLUME 98.6 fl (80.0-96.0); MONO # 0.6 10^3/uL (0.0-0.8); MONO % 10.4 % (0.0-5.0); NEUTROPHILS # 3.2 10^3/uL (1.5-8.5); NEUTROPHILS % 59.3 % (36.0-66.0); PLATELET COUNT, AUTOMATED 185 10^3/uL (150-450); RED BLOOD COUNT 3.54 10^6/uL (4.00-5.40); WHITE BLOOD COUNT 5.4 10^3/uL (4.0-10.0)
[2019-02-28 08:56] LABS: INR 1.17; PROTHROMBIN TIME 14.7 SECONDS (11.8-14.0)
[2019-02-28 08:57] LABS: PARTIAL THROMBOPLASTIN TIME 38.6 SECONDS (25.0-38.4)
[2019-02-28] MEDS: clonazePAM 0.5 MG TAB PO SCH ×2 (09:00→21:35)
[2019-02-28] MEDS: rOPINIRole 2MG TAB PO SCH ×3 (09:00→22:29)
--- NOTE | 2019-02-28 09:00 | REP ---
Portable chest x-ray: Single view. History: CVA. Comparison chest x-ray: June 21, 2018. Findings: Monitoring electrodes overlie the chest. Heart is not enlarged. Lungs are well inflated and clear. The pleural angles are sharp. Pulmonary vasculature is not increased. Impression: No active disease. Electronically Signed by Jair Aguilar MD 02/28/2019 08:52 A
[2019-02-28] MEDS ORDERED: hydrALAZINE INJ 20 MG/ML VIAL IV STA (09:05)
[2019-02-28 09:07] LABS: CK-MB VALUE MASS 1.9 NG/ML (<3.6); CPK CREATINE PHOSPHOKINASE 84 U/L (26-192); MB/CK RELATIVE INDEX 2.26 (< OR =4); TROPONIN I < 0.02 NG/ML (< 0.10)
[2019-02-28] MEDS ORDERED: LEVE250T5 PO (10:19)
[2019-02-28] MEDS ORDERED: D-20TAB PO (10:19)
[2019-02-28] MEDS ORDERED: CLON0.5T2 PO (10:19)
[2019-02-28] MEDS ORDERED: SPIR-10 PO (10:19)
[2019-02-28] MEDS ORDERED: COLA100C5 PO (10:19)
[2019-02-28] MEDS ORDERED: [UNRECOGNIZED DRUG - CODE] PO (10:19)
[2019-02-28] MEDS ORDERED: FERR1TAB8 PO (10:19)
[2019-02-28] MEDS ORDERED: POTA10808 PO (10:19)
[2019-02-28] MEDS ORDERED: ROPI2TAB PO ×2 (10:19)
[2019-02-28] MEDS ORDERED: TORS20TA2 PO (10:19)
[2019-02-28] MEDS ORDERED: ESSE250T PO (10:19)
[2019-02-28] MEDS ORDERED: HYDR10TAB PO ×2 (10:19)
[2019-02-28] MEDS ORDERED: BASA100I SC (10:19)
[2019-02-28] MEDS ORDERED: MAALOX 30 ML SUSP *UDC PO PRN (10:45)
[2019-02-28] MEDS ORDERED: MOM 30ML SUSPENSION UDC PO PRN (10:45)
[2019-02-28] MEDS ORDERED: GLUCOSE 4 GM CHEW TABLET PO PRN (11:00)
[2019-02-28] MEDS ORDERED: DEXTROSE 50% 50 ML SYRINGE IV PRN (11:00)
[2019-02-28] MEDS ORDERED: GLUCAGON FOR INJ 1 MG VIAL (J1610) SC PRN (11:00)
--- NOTE | 2019-02-28 11:31 | HPEPDOC ---
General Date of Admission Feb 28, 2019 at 10:44 Date of Service: Feb 28, 2019 Chief Complaint The patient is a 74-year-old female admitted with a reason for visit of Hypertensive Urgency Tia. Source: Patient Exam Limitations: No limitations Timing/Duration: Other (this morning) Severity: Moderate Associated Symptoms: Other (, and speech) History of Present Illness This is a 74 years old, obese, white female with past medical history multiple embolic ischemic his ischemic strokes in last 2 years, of severe right carotid artery stenosis status post carotid endarterectomy in 2018. 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 Diastolic heart failure, chronic right-sided heart failure, moderate pulmonary hypertension, status post bladder cancer status post cystectomy has an ileal conduit with urostomy bag left adrenal mass CK D, stage III, chronic anemia, came to ER as she has not been feeling very well since last 1 week, mostly tired and fatigue in this morning noted to have a slight his speech and was brought to ER. In the emergency room, she was found to be in emergent hypertension, but her symptoms have completely resolved. Patient is being admitted with the diagnosis of TIA uncontrolled hypertension and for further neurology workup. Home Medications Scheduled Aspirin (Aspirin EC) 81 Mg Tab, 81 MG PO DAILY, (Reported) Carvedilol (Carvedilol) 25 Mg Tablet, 25 MG PO BID, (Reported) Cholecalciferol (Vitamin D3) (Vitamin D3) 2,000 Unit Tablet, 2,000 UNIT PO BID, (Reported) Clonazepam (Clonazepam) 0.5 Mg Tablet, 0.25 MG PO BID, (Reported) Clonidine (Clonidine) 0.1 Mg Patch.tdwk, 0.1 MG TD 1XWK, (Reported) SUNDAYS - CURRENTLY APPLIED TO RIGHT CHEST Clopidogrel Bisulfate (Clopidogrel) 75 Mg Tab, 75 MG PO DAILY, (Reported) Docusate Sodium (Colace) 100 Mg Capsule, 100 MG PO DAILY, (Reported) Ferrous Sulfate (Ferrous Sulfate) 325 Mg Tablet, 325 MG PO DAILY, (Reported) Hydralazine HCl (Hydralazine HCl) 10 Mg Tablet, 10 MG PO DAILY, (Reported) TAKES AT NOON Insulin Glargine,Hum.rec.anlog (Basaglar Kwikpen U-100) 100 Unit/1 Ml Insuln.pen, 40 UNIT SC QHS, (Reported) Insulin Human Lispro (Novolog) 100 U/Ml Inj, 1 DOSE SC AC, (Reported) PER SLIDING SCALE, 20-25 UNITS Isosorbide Mononitrate (Isosorbide Mononitrate ER) 30 Mg Tab.er.24h, 30 MG PO QHS, (Reported) Levetiracetam (Levetiracetam) 250 Mg Tablet, 250 MG PO BID, (Reported) Magnesium Oxide (Magnesium Oxide) 250 Mg Tablet, 250 MG PO BID, (Reported) Mifepristone (Korlym) 300 Mg Tablet, 300 MG PO BID, (Reported) Potassium Citrate (Potassium Citrate 10MEQ (Urocit-K)) 10 Meq Tablet.er, 10 MEQ PO BID, (Reported) Pravastatin Sodium (Pravastatin Sodium) 40 Mg Tab, 40 MG PO QHS, (Reported) Ropinirole HCl (Ropinirole HCl) 2 Mg Tablet, 2 MG PO BID, (Reported) TAKES AT 0900 & 1500 Ropinirole HCl (Ropinirole HCl) 2 Mg Tablet, 4 MG PO QHS, (Reported) Spironolactone (Spironolactone) 25 Mg Tablet, 50 MG PO BID, (Reported) Tizanidine HCl (Tizanidine HCl) 2 Mg Tablet, 2 MG PO TID, (Reported) Torsemide (Torsemide) 20 Mg Tablet, 20 MG PO DAILY, (Reported) Scheduled PRN Hydralazine HCl (Hydralazine HCl) 10 Mg Tablet, 10 MG PO QHS PRN for BP > 160, (Reported) Allergies Coded Allergies: No Known Allergies (Unverified , 05/27/18) Past Medical History Medical History Multiple embolic ischemic strokes severe right carotid artery stenosis status post right carotid endarterectomy. Fr[place] syndrome, hypertension, insulin- dependent diabetes mellitus, peripheral neuropathy, coronary artery disease with stents, dyslipidemia, severe ALEX on CPAP, restless leg syndrome, periodic limb movement disorder. Diastolic congestive heart failure, chronic right-sided heart failure, moderate pulmonary hypertension, history of bladder cancer status post cystectomy with ileal conduit with urostomy bag. Left adrenal mass, COPD, stage III, chronic anemia Surgical History Radical cystectomy with ileal conduit, right carotid endarterectomy, status post cardiac cath with cardiac stents, bilateral cataract surgeries Family History Mother in 50s of diabetes mellitus, has a history of diabetes on mother's side. Father in 50s, unknown medical problems Social History * Smoker: former Smoker Alcohol: Denies Drugs: denies A-FIB/CHADSVASC A-FIB History Current/History of A-Fib/PAF?: No Review of Systems Constitutional: Reports: Malaise, Weakness, Fatigue Eyes: Denies: Pain, Vision change, Conjunctivae inflammation, Eyelid inflammation, Redness, Other ENT: Denies: Head Aches, Ear Pain, Dysphagia, Sinus Congestion, Post Nasal Drip, Sore Throat, Epistaxis, Other Symptoms Skin: Denies: Rash, Lesions, Jaundice, Bruising, Itching, Dry, Breakdown, Nail Changes, Other Pulmonary: Denies: Dyspnea, Cough, Pleuritic Chest Pain, Other Symptoms Cardiovascular: Denies: Chest Pain, Palpitations, Orthopnea, Paroxysmal Noc. Dyspnea, Edema, Lt Headedness, Other Symptoms Gastrointestinal: Denies: Nausea, Vomiting, Abdominal Pain, Diarrhea, Constipation, Melena, Hematochezia, Other Symptoms Genitourinary: Denies: Dysuria, Frequency, Incontinence, Hematuria, Retention, Other Symptoms Endocrine: Denies: Polydipsia, Polyphagia, Polyuria, Heat Intolerance, Cold Intolerance, Other Endocrine Sx Musculoskeletal: Denies: Neck Pain, Back Pain, Shoulder Pain, Arm Pain, Hand Pain, Leg Pain, Foot Pain, Joint Pain, Muscle Pain, Spasms, Other Symptoms Neurological: Reports: Other Symptoms (, slurred speech, which has resolved) Psych: Reports: Mood Normal Physical Examination General Exam: Positive: Alert, Cooperative Eye Exam: Positive: PERRLA, Conjunctiva & lids normal ENT Exam: Positive: Atraumatic, Mucous membr. moist/pink Neck Exam: Positive: Supple Chest Exam: Positive: Clear to auscultation Heart Exam: Positive: Rate Normal, Normal S1, Normal S2 Abdomen Exam: Positive: Soft Extremity Exam: Positive: Edema (. Bilateral pedal edema) Skin Exam: Positive: Nl turgor and temperature Neuro Exam: Positive: Strength at 5/5 X4 ext, Sensation Intact, Cranial Nerves 3-12 NL Vital Signs Vital Signs Date Time Temp Pulse Resp B/P (MAP) Pulse Ox O2 Delivery O2 Flow Rate FiO2 02/28/19 10:45 63 16 200/84 (122) 93 02/28/19 07:42 97.9 Room Air Laboratory Data Labs 24H Laboratory Tests 2 02/28/19 08:13: Immature Granulocyte % (Auto) 0.6, Neutrophils (%) (Auto) 59.3, Lymphocytes (%) (Auto) 27.6, Monocytes (%) (Auto) 10.4H, Eosinophils (%) (Auto) 1.5, Basophils (%) (Auto) 0.6, Neutrophils # (Auto) 3.2, Lymphocytes # (Auto) 1.5, Monocytes # (Auto) 0.6, Eosinophils # (Auto) 0.1, Basophils # (Auto) 0.0, Nucleated Red Blood Cells % (auto) 0.0, Prothrombin Time 14.7H, Prothromb Time International Ratio 1.17, Activated Partial Thromboplast Time 38.6H, Total Creatine Kinase 84, Creatine Kinase MB 1.9, Creatine Kinase MB Relative Index 2.26, Troponin I < 0.02 02/28/19 08:23: POC Glucose (Misc Panel) 178H, POC Sodium (Misc Panel) 142, POC Potassium (Misc Panel) 3.9, POC Chloride (Misc Panel) 100, POC Total CO2 (Misc Panel) 32.0H, POC Blood Urea Nitrogen (Misc Panel 32H, POC Ionized Calcium (Misc Panel) 4.7, POC Creatinine (Misc Panel) 1.4H, POC Hematocrit (Misc Panel) 32.0L CBC/BMP Laboratory Tests 02/28/19 08:13 Problems (1) TIA (transient ischemic attack) Status: Acute Problem Text: Patient was admitted with the diagnosis of TIAs, or slurred speech. Symptoms have resolved, but as per patient and her obstetrician. She has worsening gait. She uses a walker, but she is unable to use it anymore since [address] head is negative. MRI and MRA is pending. Admitted to PCU with telemetry monitoring Neuro check every 4 hours I and O's Telemetry monitoring Continue aspirin, Plavix Dr. Kim alvarado and he will see the patient this afternoon MRA of her brain and carotid arteries is pending MRI of brain is pending DVT prophylaxis with heparin Activity as tolerated with help Type consistent carbohydrate diet Into the all home meds Physical therapy and occupational therapy evaluation has been called (2) Hypertensive urgency Status: Acute Problem Text: Patient recently had a fluid retention and she was seen by Dr. Nickerson and is started on the spironolactone but as per patient, he is still has bilateral pedal edema. Patient. Echocardiogram was done on June 2018 which showed mild concentric left ventricular hypertrophy with hyperkinetic wall and mildly dilated left atrium with impairment of left ventricular diastolic function in her EF was 75% Will continue patient on spironolactone and all her home medication including clonidine patch for blood pressure control Patient was given 1 dose of hydralazine in the ED and will continue hydralazine 10 mg IV every 6 hours when necessary for blood pressure more than 150 Serial troponin has been ordered Nephrology consult with Dr. Nickerson has been requested Will await recommendation from nephrology Continue close monitoring (3) Acute kidney injury Status: Acute Problem Text: Pt is a history of C KD stage III her BUN is 32, creatinine 1.4 Strict I and O's Continue all present meds Nephrology consult pending (4) Diabetes mellitus Status: Chronic Problem Text: fingerstick blood sugar every before meals and at bedtime with coverage Continue home basal insulin (5) Hypertension Status: Acute Problem Text: Home meds including his spironolactone, clonidine, torsemide, Coreg, enalapril Hydralazine 10 mg IV every 6 hours when necessary for systolic more than 150 Further, as per nephrology's recommendations Plan / VTE VTE Prophylaxis Ordered?: Yes MILI WISEMAN MD Feb 28, 2019 11:31
[2019-02-28 11:45] VITALS: BP 200/80
--- NOTE | 2019-02-28 12:37 | REP ---
MRI BRAIN WITHOUT CONTRAST: HISTORY: Slurred speech. Comparison study June 21, 2018. Comparison head CT study is from earlier this date. TECHNIQUE: Axial and sagittal imaging planes are utilized for T1- and T2-weighted scans. Sequences include spin-echo, fast spin echo, FLAIR, and diffusion weighted sequences. MRI FINDINGS: Bony calvarium is intact. Craniocervical junction and upper cervical cord are unremarkable. On diffusion-weighted scans, there is a small focus of restricted diffusion indicating acute ischemia in the right central elpidio. No other area of restricted diffusion is appreciated. There are small vessel atherosclerotic changes in the periventricular white matter bilaterally in the supratentorial brain. There is no evidence of intracranial hemorrhage. There is evidence of an old lacunar infarct in the left central elpidio. No extra-axial fluid collection, mass, or midline shift is seen. There is no evidence of significant paranasal sinus disease or intraorbital abnormality. IMPRESSION: There is a very small subcentimeter focus of restricted diffusion indicating acute ischemia in the right central elpidio. There is an old lacunar infarct in the left central elpidio. This left-sided infarct was acute on the June 21, 2018 study. The right pontine infarct is new today. There is generalized volume loss and some small vessel changes. No other acute abnormality. Electronically Signed by Jair Aguilar MD 02/28/2019 06:36 P
--- NOTE | 2019-02-28 12:39 | REP ---
MR ANGIOGRAPHY THE BRAIN WITHOUT CONTRAST: HISTORY: Slurred speech. Comparison MR angiography of the brain, June 21, 2018. TECHNIQUE: 3-D [id number] MR angiography of the brain is acquired in the usual fashion and maximal intensity projection images were generated in rotational format about the vertical and horizontal axes. In addition, source axial T1-weighted images are viewed in cine mode. MR ANGIOGRAPHIC FINDINGS: The distal vertebral arteries are patent and co-dominant. Basilar artery is a little tortuous but widely patent. The superior cerebellar arteries are unremarkable. The right posterior cerebellar artery is unremarkable. The left posterior cerebellar artery shows focal stenosis and possibly occlusion. This is a change from MR angiography of June 21, 2018. The distal internal carotid arteries are unremarkable. Anterior and middle cerebral arteries appear intact. There is no visible jennings aneurysm or arteriovenous malformation. IMPRESSION: Asymmetry of the posterior cerebral arteries with evidence of new stenosis versus occlusion of the left posterior cerebral artery compared with the June 21, 2018 study. Otherwise unremarkable MR angiography the brain. Electronically Signed by Jair Aguilar MD 02/28/2019 06:36 P
--- NOTE | 2019-02-28 12:40 | REP ---
MR ANGIOGRAPHY OF THE CAROTIDS WITHOUT CONTRAST: HISTORY: Recurrent CVA. TIA. TECHNIQUE: 2D [id number] MR angiography of the carotids is acquired. Maximum intensity projection images are generated. MR ANGIOGRAPHIC FINDINGS: Great vessel origins are unremarkable. The cervical segments of the vertebral arteries are normal and symmetric. The common carotid arteries are unremarkable. There is moderate plaquing of the right carotid bifurcation and proximal external carotid artery. No high-grade stenosis is seen in the ICA. On the left, there is mild to moderate plaquing. No high-grade ICA stenosis is observed. IMPRESSION: Mild bilateral carotid bulb plaquing. No high-grade stenosis seen in either internal carotid artery. Electronically Signed by Jair Aguilar MD 02/28/2019 06:36 P
[2019-02-28] MEDS: ACETAMINOPHEN TAB 650MG DOSE (2X325MG) PO PRN (13:16)
[2019-02-28] MEDS: DOCUSATE SODIUM 100 MG CAP PO SCH ×2 (13:16→21:33)
[2019-02-28] MEDS: MAGNESIUM OXIDE 400 MG TAB (MAG-OX) PO SCH ×2 (13:16→21:35)
[2019-02-28] MEDS: ASPIRIN 81 MG ENTERIC TAB PO SCH (13:17)
[2019-02-28] MEDS: VITAMIN D 1,000 INTERNATIONAL UNITS TABLET PO SCH ×2 (13:17→21:35)
[2019-02-28] MEDS: CARVedilol 12.5 MG TAB PO SCH ×2 (13:17→21:34)
[2019-02-28] MEDS: TORSEMIDE 20 MG TAB PO SCH (13:18)
[2019-02-28] MEDS: CLOPIDOGREL 75 MG TAB PO SCH (13:18)
[2019-02-28] MEDS: FERROUS SULFATE 325MG TAB PO SCH (13:18)
[2019-02-28] MEDS: levETIRAcetam 250MG TABLET (KEPPRA) PO SCH ×2 (13:18→21:34)
[2019-02-28] MEDS: tiZANidine 4 MG TAB PO SCH ×3 (13:19→21:36)
[2019-02-28] MEDS: HEPARIN SOD (PORCINE) 5000 UNITS/ML VIAL (J1644 PER 1000UNITS) SC SCH ×2 (13:19→21:36)
[2019-02-28] MEDS: HumaLOG INSULIN (NovoLOG) PER UNIT SC SCH ×3 (13:21→21:00)
[2019-02-28] MEDS: SPIRONOLACTONE 25 MG TAB PO SCH ×2 (13:24→21:33)
[2019-02-28 14:31] VITALS: BP 156/78
[2019-02-28] MEDS: POTASSIUM CITRATE 1080 MG (10MEQ) TAB PO SCH ×2 (14:52→22:29)
[2019-02-28] MEDS ORDERED: cloNIDine HCL 0.1 MG/24 HR PATCH TD SCH (15:00)
[2019-02-28] MEDS ORDERED: SLF 3 ML SYR IV PRN (15:30)
[2019-02-28 16:00] VITALS: BP 182/70
[2019-02-28] MEDS: hydrALAZINE INJ 20 MG/ML VIAL IV PRN ×2 (17:35→23:59)
[2019-02-28 18:40] VITALS: BP 154/60
[2019-02-28 20:00] VITALS: BP 148/72
--- NOTE | 2019-02-28 20:28 | ECGEPIP ---
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
[2019-02-28] MEDS: ISOSORBIDE MON. (IMDUR) 30 MG XR TAB PO SCH (21:34)
[2019-02-28] MEDS: PRAVASTATIN 20 MG TAB PO SCH (21:35)
[2019-02-28] MEDS: LEVEMIR (INSULIN DETEMIR) 1 UNITS/0.01ML SC SCH (21:36)
[2019-02-28] MEDS: SLF 3 ML SYR IV SCH (21:37)
[2019-02-28] MEDS ORDERED: PILL CUTTER 1 EACH XX PRN (22:00)
[2019-03-01] VITALS (8 sets, daily range): BP systolic 143–184; BP diastolic 63–87
[2019-03-01] MEDS: SLF 3 ML SYR IV SCH ×3 (04:24→21:05)
[2019-03-01] MEDS: hydrALAZINE INJ 20 MG/ML VIAL IV PRN ×2 (04:41→13:12)
[2019-03-01] MEDS: ACETAMINOPHEN TAB 650MG DOSE (2X325MG) PO PRN ×2 (04:42→15:42)
[2019-03-01 06:03] LABS: HEMATOCRIT 33.4 % (36.0-47.0); HEMOGLOBIN 10.3 g/dl (12.0-15.5); MEAN CORPUSCULAR HEMOGLOBIN 30.8 pg (27.0-33.0); MEAN CORPUSCULAR HGB CONC 30.8 g/dl (32.0-36.5); PLATELET COUNT, AUTOMATED 175 10^3/uL (150-450); RED BLOOD COUNT 3.34 10^6/uL (4.00-5.40); WHITE BLOOD COUNT 6.1 10^3/uL (4.0-10.0)
[2019-03-01 06:29] LABS: ALBUMIN 2.9 GM/DL (3.2-5.2); BILIRUBIN,TOTAL 0.5 MG/DL (0.2-1.0); CALCIUM LEVEL 8.9 MG/DL (8.8-10.2); CREATININE FOR GFR 1.45 MG/DL (0.55-1.30); GLOMERULAR FILTRATION RATE 37.8 (>39); POTASSIUM SERUM 3.7 MEQ/L (3.5-5.1); TOTAL PROTEIN 6.8 GM/DL (6.4-8.2)
[2019-03-01] MEDS: rOPINIRole 2MG TAB PO SCH ×3 (06:35→20:46)
[2019-03-01] MEDS: DOCUSATE SODIUM 100 MG CAP PO SCH ×2 (07:53→20:48)
[2019-03-01] MEDS: VITAMIN D 1,000 INTERNATIONAL UNITS TABLET PO SCH ×2 (07:53→20:46)
[2019-03-01] MEDS: POTASSIUM CITRATE 1080 MG (10MEQ) TAB PO SCH ×2 (07:53→20:47)
[2019-03-01] MEDS: CLOPIDOGREL 75 MG TAB PO SCH (07:53)
[2019-03-01] MEDS: SPIRONOLACTONE 25 MG TAB PO SCH ×2 (07:53→20:46)
[2019-03-01] MEDS: ASPIRIN 81 MG ENTERIC TAB PO SCH (07:53)
[2019-03-01] MEDS: levETIRAcetam 250MG TABLET (KEPPRA) PO SCH ×2 (07:53→20:47)
[2019-03-01] MEDS: tiZANidine 4 MG TAB PO SCH ×3 (07:54→20:47)
[2019-03-01] MEDS: TORSEMIDE 20 MG TAB PO SCH (07:54)
[2019-03-01] MEDS: MAGNESIUM OXIDE 400 MG TAB (MAG-OX) PO SCH ×2 (07:54→20:47)
[2019-03-01] MEDS: CARVedilol 12.5 MG TAB PO SCH ×2 (07:55→20:47)
[2019-03-01] MEDS: FERROUS SULFATE 325MG TAB PO SCH (07:55)
[2019-03-01] MEDS: HumaLOG INSULIN (NovoLOG) PER UNIT SC SCH ×4 (07:55→20:45)
[2019-03-01] MEDS: clonazePAM 0.5 MG TAB PO SCH ×2 (07:56→20:46)
[2019-03-01] MEDS: HEPARIN SOD (PORCINE) 5000 UNITS/ML VIAL (J1644 PER 1000UNITS) SC SCH ×2 (07:56→20:45)
--- NOTE | 2019-03-01 10:35 | IPNPDOC ---
Subjective Date Seen The patient was seen on 03/01/19. Subjective Chief Complaint/HPI Patient has no more slurring of speech. IV other symptoms. She is sitting in chair. Offers no new complaints General: Denies: ROS Unobtainable, Chills, Night Sweats, Fatigue, Malaise, Normal Appetite, Other Symptoms Constitutional: Denies: Chills, Fever, Malaise, Night Sweats, Weakness, Fatigue, Weight Loss, Lethargy, Other Eyes: Denies: Pain, Vision change, Conjunctivae inflammation, Eyelid inflammation, Redness, Other ENT: Denies: Head Aches, Ear Pain, Dysphagia Cardiovascular: Denies: Chest Pain, Palpitations, Orthopnea, Paroxysmal Noc. Dyspnea, Edema, Lt Headedness, Other Symptoms Gastrointestinal: Denies: Nausea, Vomiting, Abdominal Pain, Diarrhea, Constipation, Melena, Hematochezia, Other Symptoms Hematologic: Denies: Bruising, Bleeding Excessively, Petecchia, Purpura, Enlar ged Lymph Nodes, Other Hematologic Endocrine: Denies: Polydipsia, Polyphagia, Polyuria, Heat Intolerance, Cold Intolerance, Other Endocrine Sx Musculoskeletal: Denies: Neck Pain, Back Pain, Shoulder Pain, Arm Pain, Hand Pain, Leg Pain, Foot Pain, Joint Pain, Muscle Pain, Spasms, Other Symptoms Neurological: Denies: Weakness, Numbness, Incoordination, Change in speech, Confusion, Seizures, Other Symptoms Objective Physical Examination ENT Exam: Positive: Atraumatic, Mucous membr. moist/pink Neck Exam: Positive: Supple Chest Exam: Positive: Clear to auscultation Heart Exam: Positive: Rate Normal, Normal S1, Normal S2 Abdomen Exam: Positive: Soft Extremity Exam: Positive: Edema (. Bilateral pedal edema) Skin Exam: Positive: Nl turgor and temperature Neuro Exam: Positive: Strength at 5/5 X4 ext, Sensation Intact, Cranial Nerves 3-12 NL Assessment /Plan Problems (1) CVA (cerebral vascular accident) Status: Acute Problem Text: Patient's MRI is consistent with: There is a very small subcentimeter focus of restricted diffusion indicating acute ischemia in the right central elpidio. There is an old lacunar infarct in the left central elpidio MRA of brain and carotid arteries showed no stenosis or obstruction Patient is already on aspirin Plavix and statin Neurology consult with Dr. Alvarez is still pending Physical therapy in progress Possible transfer to rehabilitation once stable (2) Hypertensive urgency Status: Resolved Problem Text: Patient's blood pressure now is 148/69, heart rate of 57 Continue all present medications (3) Diabetes mellitus Status: Chronic Problem Text: Fingerstick blood sugar Before meals and at bedtime with coverage Continue home meds Restart patient's basal insulin as well (4) Acute kidney injury Status: Acute Problem Text: Monitor patient's BUN/creatinine today is 27 and 1.45 Plan/VTE VTE Prophylaxis Ordered?: Yes VS, I&O, 24H, Fishbone Vital Signs/I&O Vital Signs Date Time Temp Pulse Resp B/P (MAP) Pulse Ox O2 Delivery O2 Flow Rate FiO2 03/01/19 09:28 148/69 (95) 03/01/19 08:00 97.8 57 18 92 Room Air I&O- Last 24 Hours up to 6 AM 03/01/19 06:00 Intake Total 1140 ml Output Total 1650 ml Balance -510 ml Laboratory Data 24H LABS Laboratory Tests 2 02/28/19 12:52: Bedside Glucose (Misc Panel) 134H 02/28/19 15:18: Bedside Glucose (Misc Panel) 199H 02/28/19 16:57: Bedside Glucose (Misc Panel) 207H 02/28/19 20:49: Bedside Glucose (Misc Panel) 233H 03/01/19 05:37: Nucleated Red Blood Cells % (auto) 0.0, Anion Gap 4L, Glomerular Filtration Rate 37.8L, Calcium Level 8.9, Total Bilirubin 0.5, Aspartate Amino Transf (AST/SGOT) 11, Alanine Aminotransferase (ALT/SGPT) 14, Alkaline Phosphatase 40L, Total Protein 6.8, Albumin 2.9L, Albumin/Globulin Ratio 0.74L CBC/BMP Laboratory Tests 03/01/19 05:37 MILI WISEMAN MD Mar 01, 2019 10:35
[2019-03-01] MEDS: FUROSEMIDE 40 MG/4 ML VIAL (J1940) IV SCH ×3 (13:11→23:25)
[2019-03-01] MEDS: KORLYM PO SCH (13:12)
--- NOTE | 2019-03-01 17:49 | CR ---
DATE OF CONSULTATION: 03/01/2019 REFERRING PHYSICIAN: Dr. Herb Archuleta REASON FOR CONSULTATION: Stroke and slurred speech. HISTORY OF PRESENT ILLNESS: Yolanda Ng is a 74-year-old woman with history of multiple ischemic embolic strokes in the past, status post right carotid endarterectomy in 2018, severe restless leg syndrome, chronic kidney disease, stage III, sleep apnea, diabetes, coronary artery disease, who was at her baseline state of health until the night before yesterday. She woke up yesterday morning and had slurred speech. She felt her coordination was worse than before. She denies numbness, weakness of her arms and legs. She felt pain in both her legs. She denies any headaches, neck or back pain. She denies any falls, loss of consciousness. She was hypertensive in the emergency department with blood pressure 200/84. It improved. She still feels her speech is slightly slurred. PAST MEDICAL HISTORY: 1. Diabetes. 2. Chronic kidney disease. 3. Strokes. 4. Coronary artery disease. 5. Severe restless legs. 6. Neuropathy. 7. Bladder cancer. 8. Moderate pulmonary hypertension. 9. Chronic anemia. CURRENT MEDICATIONS: - aspirin 81 mg by mouth daily but states that she has not been taking it for quite awhile. She states that she did not know that she was suppose to take aspirin. - Plavix 75 mg by mouth daily - carvedilol 25 mg by mouth twice a day - clonazepam 0.5 mg by mouth twice a day - clonidine 0.1 mg by mouth three times a week - hydralazine 10 mg by mouth daily - insulin Basaglar 40 units once a day - insulin NovoLog - isosorbide mononitrate 30 mg by mouth daily - Keppra 250 mg by mouth twice a day - pravastatin 40 mg by mouth daily - ropinirole 2 mg by mouth twice a day and 4 mg by mouth at bedtime - clonazepam 0.25 mg by mouth twice a day - spironolactone 50 mg by mouth twice a day - tizanidine 2 mg by mouth three times a day - torsemide 20 mg by mouth daily ALLERGIES: None. SOCIAL HISTORY: She lives with her partner. She is a former smoker. She denies alcohol or illicit drugs. FAMILY HISTORY: Mother with history of diabetes. Father of unknown medical problems. REVIEW OF SYSTEMS: All systems were reviewed and found to be noncontributory except as mentioned in history present illness. PHYSICAL EXAMINATION: Temperature 97.8, pulse 57, respiratory rate 18, blood pressure 162/76, 92% saturation on room air. HEART: Regular rate and rhythm. LUNGS: Clear to auscultation. ABDOMEN: Soft, nontender, nondistended. No pedal edema. No musculoskeletal abnormalities. No rash. No signs of meningeal irritation. The patient is awake, alert, oriented to place, person and time. Her speech is minimally dysarthric. Comprehension and repetition are normal. Extraoral muscles are intact. No facial weakness. Tongue and uvula are midline. Visual oswald are full to confrontation. There is no nystagmus. Strength 5/5 in all four extremities. Deep tendon flexes are 1+ in arms and absent in legs. She has decreased cold, pinprick, vibration/sensation in her feet. Her gait is unsteady. She uses a walker at her baseline. DIAGNOSTIC STUDIES: MRI scan of brain showed a new small right pontine acute ischemic stroke in addition to her old left pontine and right-sided strokes in frontal, temporal, and parietal head regions. She also has small-vessel ischemic disease of brain. MRA brain showed left posterior cerebral artery severe stenosis. MRA of neck showed mild bilateral carotid artery stenosis. ASSESSMENT: 1. New small right pontine acute lacunar ischemic stroke. 2. History of multiple strokes in past, including the right cerebral and left pontine strokes. 3. Severe left posterior cerebral artery stenosis. 4. Severe restless leg syndrome with periodic limb movements of sleep and wakefulness. 5. Diabetic peripheral neuropathy. 6. Multifactorial gait difficulty. 7. Hypertension. 8. Dyslipidemia. 9. Sleep apnea. PLAN: 1. Restart aspirin 81 mg by mouth daily. The patient stated that she has not taken it in awhile. She states that she did not know that she was supposed to take it. This needs to be confirmed with her partner. 2. Plavix 75 mg by mouth daily. 3. Pravastatin 40 mg by mouth daily. 4. Ropinirole 2 plus 2 plus 4 mg daily 5. Clonazepam 0.25 mg by mouth twice a day. 6. Continue using a walker, physical therapy and rehabilitation. 7. Follow with our office in 2-4 weeks after hospital discharge.
--- NOTE | 2019-03-01 20:33 | CR ---
DATE OF CONSULTATION: 03/01/2019 REQUESTING PHYSICIAN: Dr. Herb Archuleta CONSULTING PHYSICIAN: Dr. Nickerson REASON FOR CONSULTATION: Management of chronic kidney disease and hypertension. CHIEF COMPLAINT: The patient presented to the hospital yesterday with hypertension and weakness. HISTORY OF PRESENT ILLNESS: Yolanda Ng is a 74-year-old female with past medical history of chronic kidney disease, stage III, hypertension, obesity, history of cerebrovascular accident (CVA), peripheral vascular disease, multiple other comorbidities as mentioned below. She presented to the hospital yesterday with severe generalized body weakness. She was found to have elevated blood pressures in the emergency room. She also had slurred speech. MRI showed acute ischemia in the right central elpidio. She was admitted under the hospitalist service with acute CVA and hypertensive urgency. Nephrology service was called for further help in the management of this patient with hypertension and chronic kidney disease, stage III. I saw and evaluated the patient today morning at the bedside. She was actually sitting in the sofa. She reports that she has persistent lower extremity edema despite use of diuretics at this time. Antihypertensive medications were started yesterday. Blood pressures are within the acceptable range at this time. PAST MEDICAL HISTORY: 1. Chronic kidney disease, stage III. 2. Obesity. 3. History of multiple CVAs and transient ischemic attacks (TIAs) in the past. 4. History of right carotid artery stenosis status post a carotid endarterectomy. 5. Dee syndrome. 6. Hypertension. 7. Insulin-dependent diabetes. 8. Coronary artery disease, status post stents. 9. Hyperlipidemia. 10. Osteoarthritis. 11. Obstructive sleep apnea, on continuous positive airway pressure (CPAP). 12. Restless leg syndrome. 13. Chronic diastolic congestive heart failure. 14. Pulmonary hypertension. 15. History of cystectomy and ileal conduit with urostomy. 16. History of left adrenal mass. PAST SURGICAL HISTORY: 1. Status post radical cystectomy with ileal conduit. 2. Right carotid endarterectomy. 3. Cardiac stents. 4. Bilateral cataract surgeries. ALLERGIES: No known drug allergies. FAMILY HISTORY: No significant family history of end-stage renal disease requiring hemodialysis. SOCIAL HISTORY: The patient lives at home. She is a former smoker. She denies any illicit drug abuse or alcohol abuse. REVIEW OF SYSTEMS: CONSTITUTIONAL: Patient reports generalized weakness and malaise. EYES: She denies any blurry vision, double vision. ENT: She denies any dysphagia or odynophagia. CARDIOVASCULAR: She denies any chest pain or palpitation. She does report lower extremity edema. RESPIRATORY: She denies any shortness of breath. GASTROINTESTINAL: She denies any nausea, or vomiting. GENITOURINARY: She has a urostomy bag attached. MUSCULOSKELETAL: She reports left-sided muscle weakness. SKIN: She denies any rashes or ulcers. HEMATOLOGIC/ONCOLOGIC: She denies any easy bleeding or bruising. All other review of systems is negative. PHYSICAL EXAMINATION: GENERAL: The patient is awake, alert, oriented times three, obese, sitting in the sofa. VITAL SIGNS: Temperature is 97.9 degrees Fahrenheit, blood pressure 152/68, blood pressure on arrival was 214/91, pulse is 63, respiratory rate of 18, saturating 92% on room air. Intake and output: Urine output recorded is 1.6 liters yesterday, 950 mL so far today. HEAD AND NECK: Extraocular muscles intact. Pupils equally round and reactive to light. Neck is supple. I cannot appreciate jugular venous distention (JVD) because of body habitus. CARDIOVASCULAR: S1, S2. Edema 3+ of the bilateral lower extremities. RESPIRATORY: Mildly decreased breath sounds at the bases. No active rales or rhonchi. ABDOMEN: Soft, positive bowel sounds. Nontender. No organomegaly. MUSCULOSKELETAL: There is 3+ edema of the extremities as noted above. CENTRAL NERVOUS SYSTEM: Patient's power is 4/5 in the left upper extremity. Otherwise, she moves extremities and follows commands. LABORATORY REVIEW: CBC showed WBC of 6.1, hemoglobin 10.2, platelets of 175. BMP showed sodium 140, potassium 3.7, chloride 105, bicarbonate 31, BUN 27, creatinine is 1.4, calcium 8.9. Albumin is 2.9. IMAGING: MRI of the brain was done yesterday, which showed acute right central pontine stroke. CURRENT INPATIENT MEDICATIONS: The patient's medications include: - Tylenol as needed - Mylanta - aspirin 81 mg daily - Coreg 25 mg by mouth twice a day - clonazepam 0.25 mg by mouth twice a day - clonidine patch 0.1 mg per 24 hours - Plavix 75 mg by mouth daily - Colace 100 mg by mouth twice a day - iron tablet 325 mg by mouth daily - heparin 5000 subcutaneous every 12 hours - hydralazine as needed for systolic blood pressure more than 150 - isosorbide 30 mg by mouth at bedtime - Keppra to 250 mg by mouth twice a day - Korlym 300 mg by mouth daily - potassium citrate 1080 mg by mouth twice a day - pravastatin 40 mg at bedtime - Requip 2 mg by mouth twice a day - spironolactone 50 mg by mouth twice a day - torsemide 20 mg by mouth daily - vitamin D 2000 units by mouth twice a day ASSESSMENT: A 74-year-old female with acute cerebrovascular accident (CVA), hypertensive urgency, chronic kidney disease, stage III, lower extremity edema, and diabetes along with Dee's syndrome. PLAN: 1. Chronic kidney disease, stage III. The patient's creatinine was 1.4 on arrival, which is close to her baseline. Electrolytes are within the acceptable range. 2. Hypertensive urgency. The patient's blood pressures are significantly better, and because of acute CVA, I would avoid aggressive control of the blood pressure. Continue current dose of Coreg 25 mg by mouth twice a day. Continue clonidine patch. Continue isosorbide. Hydralazine is as needed only. Diarrhetic adjustment is as mentioned below. 3. Bilateral lower extremity edema. The patient is currently on spironolactone. I have added Lasix 40 mg IV every 6 hours with a net-negative fluid balance goal of 1.5 liters daily. 4. Acute CVA. Patient is already on aspirin and Plavix. Her symptoms are getting better. Blood pressure is better controlled. 5. Hyperglycemia secondary to [place]'s syndrome. Patient takes her home dose of Korlym 300 mg by mouth daily. Thank you for involving me in the care of this patient. I shall be happy to follow the patient along with you tomorrow morning.
[2019-03-01] MEDS: LEVEMIR (INSULIN DETEMIR) 1 UNITS/0.01ML SC SCH (20:44)
[2019-03-01] MEDS: PRAVASTATIN 20 MG TAB PO SCH (20:47)
[2019-03-01] MEDS: ISOSORBIDE MON. (IMDUR) 30 MG XR TAB PO SCH (20:48)
[2019-03-01] MEDS ORDERED: LEVEMIR (INSULIN DETEMIR) 1 UNITS/0.01ML SC SCH (21:00)
[2019-03-01] MEDS ORDERED: POTASSIUM CHLORIDE 10 MEQ SR TABLET PO ONE (22:00)
[2019-03-02] VITALS (8 sets, daily range): BP systolic 136–194; BP diastolic 60–100
[2019-03-02] MEDS ORDERED: cloNIDine HCL 0.1 MG/24 HR PATCH TD SCH
[2019-03-02] MEDS: hydrALAZINE INJ 20 MG/ML VIAL IV PRN (04:12)
[2019-03-02 05:25] LABS: HEMATOCRIT 34.5 % (36.0-47.0); HEMOGLOBIN 10.7 g/dl (12.0-15.5); MEAN CORPUSCULAR HEMOGLOBIN 30.8 pg (27.0-33.0); MEAN CORPUSCULAR VOLUME 99.4 fl (80.0-96.0); PLATELET COUNT, AUTOMATED 183 10^3/uL (150-450); RED BLOOD COUNT 3.47 10^6/uL (4.00-5.40); WHITE BLOOD COUNT 4.8 10^3/uL (4.0-10.0)
[2019-03-02 05:49] LABS: CALCIUM LEVEL 8.6 MG/DL (8.8-10.2); CREATININE FOR GFR 1.63 MG/DL (0.55-1.30); MAGNESIUM LEVEL 2.4 MG/DL (1.8-2.4); POTASSIUM SERUM 3.6 MEQ/L (3.5-5.1)
[2019-03-02] MEDS: SLF 3 ML SYR IV SCH ×3 (06:03→20:53)
[2019-03-02] MEDS: FUROSEMIDE 40 MG/4 ML VIAL (J1940) IV SCH ×4 (06:03→23:48)
[2019-03-02] MEDS: CLOPIDOGREL 75 MG TAB PO SCH (08:31)
[2019-03-02] MEDS: DOCUSATE SODIUM 100 MG CAP PO SCH ×2 (08:31→20:53)
[2019-03-02] MEDS: MAGNESIUM OXIDE 400 MG TAB (MAG-OX) PO SCH ×2 (08:31→20:52)
[2019-03-02] MEDS: rOPINIRole 2MG TAB PO SCH ×3 (08:31→20:50)
[2019-03-02] MEDS: levETIRAcetam 250MG TABLET (KEPPRA) PO SCH ×2 (08:31→20:53)
[2019-03-02] MEDS: POTASSIUM CITRATE 1080 MG (10MEQ) TAB PO SCH ×2 (08:31→20:51)
[2019-03-02] MEDS: HumaLOG INSULIN (NovoLOG) PER UNIT SC SCH ×4 (08:32→20:51)
[2019-03-02] MEDS: VITAMIN D 1,000 INTERNATIONAL UNITS TABLET PO SCH ×2 (08:32→20:51)
[2019-03-02] MEDS: FERROUS SULFATE 325MG TAB PO SCH (08:32)
[2019-03-02] MEDS: ASPIRIN 81 MG ENTERIC TAB PO SCH (08:32)
[2019-03-02] MEDS: CARVedilol 12.5 MG TAB PO SCH ×2 (08:33→20:52)
[2019-03-02] MEDS: tiZANidine 4 MG TAB PO SCH ×3 (08:33→20:52)
[2019-03-02] MEDS: HEPARIN SOD (PORCINE) 5000 UNITS/ML VIAL (J1644 PER 1000UNITS) SC SCH ×2 (08:33→20:50)
[2019-03-02] MEDS: SPIRONOLACTONE 25 MG TAB PO SCH ×2 (08:33→20:51)
[2019-03-02] MEDS: clonazePAM 0.5 MG TAB PO SCH ×2 (08:34→20:51)
[2019-03-02] MEDS: KORLYM PO SCH (08:34)
--- NOTE | 2019-03-02 10:33 | IPNPDOC ---
Subjective Date Seen The patient was seen on 03/02/19. Subjective Chief Complaint/HPI Patient is comfortable offers no new complaints, in no apparent distress General: Denies: ROS Unobtainable, Chills, Night Sweats, Fatigue, Malaise, Normal Appetite, Other Symptoms Constitutional: Denies: Chills, Fever, Malaise, Night Sweats, Weakness, Fatigue, Weight Loss, Lethargy, Other Pulmonary: Denies: Dyspnea, Cough, Pleuritic Chest Pain, Other Symptoms Cardiovascular: Denies: Chest Pain, Palpitations, Orthopnea, Paroxysmal Noc. Dyspnea, Edema, Lt Headedness, Other Symptoms Gastrointestinal: Denies: Nausea, Vomiting, Abdominal Pain, Diarrhea, Constipation, Melena, Hematochezia, Other Symptoms Endocrine: Denies: Polydipsia, Polyphagia, Polyuria, Heat Intolerance, Cold Intolerance, Other Endocrine Sx Musculoskeletal: Denies: Neck Pain, Back Pain, Shoulder Pain, Arm Pain, Hand Pain, Leg Pain, Foot Pain, Joint Pain, Muscle Pain, Spasms, Other Symptoms Neurological: Denies: Weakness, Numbness, Incoordination, Change in speech, Confusion, Seizures, Other Symptoms Objective Physical Examination General Exam: Positive: Alert, Cooperative ENT Exam: Positive: Atraumatic, Mucous membr. moist/pink Neck Exam: Positive: Supple Chest Exam: Positive: Clear to auscultation Heart Exam: Positive: Rate Normal, Normal S1, Normal S2 Abdomen Exam: Positive: Soft Extremity Exam: Positive: Edema (. Bilateral pedal edema) Skin Exam: Positive: Nl turgor and temperature Neuro Exam: Positive: Strength at 5/5 X4 ext, Sensation Intact, Cranial Nerves 3-12 NL Assessment /Plan Problems (1) CVA (cerebral vascular accident) Status: Acute Problem Text: Patient's MRI is consistent with: There is a very small subcentimeter focus of restricted diffusion indicating acute ischemia in the right central elpidio. There is an old lacunar infarct in the left central elpidio MRA of brain and carotid arteries showed no stenosis or obstruction Patient is already on aspirin Plavix and statin ID consult appreciated and Dr. Mahoney agreed with above plan Physical therapy in progress Possible transfer to rehabilitation once stable (2) Hypertensive urgency Status: Resolved Problem Text: Blood pressure slightly elevated today , But will keep an eye on it ever continues to stay more than systolic 150, then we might adjust the dosage of his medications including Coreg and clonidine Continue all present medications (3) Diabetes mellitus Status: Chronic Problem Text: Fingerstick blood sugar Before meals and at bedtime with coverage Continue home meds Restart patient's basal insulin as well (4) Acute kidney injury Status: Acute Problem Text: Monitor patient's BUN/creatinine today is 27 and 1.45 Plan/VTE VTE Prophylaxis Ordered?: Yes VS, I&O, 24H, Fishbone Vital Signs/I&O Vital Signs Date Time Temp Pulse Resp B/P (MAP) Pulse Ox O2 Delivery O2 Flow Rate FiO2 03/02/19 08:33 62 160/68 03/02/19 08:00 97.9 18 95 Room Air I&O- Last 24 Hours up to 6 AM 03/02/19 06:00 Intake Total 1620 ml Output Total 2225 ml Balance -605 ml Laboratory Data 24H LABS Laboratory Tests 2 03/01/19 11:21: Bedside Glucose (Misc Panel) 247H 03/01/19 16:36: Bedside Glucose (Misc Panel) 226H 03/01/19 20:07: Bedside Glucose (Misc Panel) 267H 03/02/19 05:11: Nucleated Red Blood Cells % (auto) 0.0, Anion Gap 3L, Glomerular Filtration Rate 33.0L, Calcium Level 8.6L, Magnesium Level 2.4 CBC/BMP Laboratory Tests 03/02/19 05:11 MILI WISEMAN MD Mar 02, 2019 10:33
[2019-03-02] MEDS: LEVEMIR (INSULIN DETEMIR) 1 UNITS/0.01ML SC SCH (20:50)
[2019-03-02] MEDS: PRAVASTATIN 20 MG TAB PO SCH (20:52)
[2019-03-02] MEDS: ISOSORBIDE MON. (IMDUR) 30 MG XR TAB PO SCH (20:53)
[2019-03-03] VITALS (8 sets, daily range): BP systolic 123–190; BP diastolic 50–74
[2019-03-03] MEDS ORDERED: rOPINIRole 1MG TAB PO ONE (02:30)
[2019-03-03] MEDS: SLF 3 ML SYR IV SCH ×3 (05:35→20:27)
[2019-03-03] MEDS: FUROSEMIDE 40 MG/4 ML VIAL (J1940) IV SCH (05:35)
[2019-03-03 05:53] LABS: BASO % 0.4 % (0.0-1.0); EOS # 0.1 10^3/uL (0.0-0.5); EOS % 1.2 % (0.0-3.0); HEMOGLOBIN 10.6 g/dl (12.0-15.5); LYMPH # 1.5 10^3/uL (1.5-5.0); LYMPH % 29.2 % (24.0-44.0); MEAN CORPUSCULAR HEMOGLOBIN 30.2 pg (27.0-33.0); MEAN CORPUSCULAR HGB CONC 30.3 g/dl (32.0-36.5); MEAN CORPUSCULAR VOLUME 99.7 fl (80.0-96.0); MONO # 0.5 10^3/uL (0.0-0.8); MONO % 10.5 % (0.0-5.0); NEUTROPHILS % 58.1 % (36.0-66.0); PLATELET COUNT, AUTOMATED 181 10^3/uL (150-450); RED BLOOD COUNT 3.51 10^6/uL (4.00-5.40); WHITE BLOOD COUNT 5.1 10^3/uL (4.0-10.0)
[2019-03-03 06:12] LABS: ALBUMIN 3.2 GM/DL (3.2-5.2); BILIRUBIN,TOTAL 0.4 MG/DL (0.2-1.0); CALCIUM LEVEL 8.7 MG/DL (8.8-10.2); CREATININE FOR GFR 1.49 MG/DL (0.55-1.30); GLOMERULAR FILTRATION RATE 36.6 (>39); MAGNESIUM LEVEL 2.3 MG/DL (1.8-2.4); POTASSIUM SERUM 3.6 MEQ/L (3.5-5.1); TOTAL PROTEIN 7.3 GM/DL (6.4-8.2)
[2019-03-03] MEDS: HEPARIN SOD (PORCINE) 5000 UNITS/ML VIAL (J1644 PER 1000UNITS) SC SCH ×2 (08:42→20:19)
[2019-03-03] MEDS: KORLYM PO SCH (08:42)
[2019-03-03] MEDS: HumaLOG INSULIN (NovoLOG) PER UNIT SC SCH ×4 (08:43→20:53)
[2019-03-03] MEDS: CLOPIDOGREL 75 MG TAB PO SCH (08:43)
[2019-03-03] MEDS: rOPINIRole 2MG TAB PO SCH ×3 (08:43→20:24)
[2019-03-03] MEDS: levETIRAcetam 250MG TABLET (KEPPRA) PO SCH ×2 (08:44→20:24)
[2019-03-03] MEDS: DOCUSATE SODIUM 100 MG CAP PO SCH ×2 (08:44→20:24)
[2019-03-03] MEDS: MAGNESIUM OXIDE 400 MG TAB (MAG-OX) PO SCH ×2 (08:44→20:20)
[2019-03-03] MEDS: POTASSIUM CITRATE 1080 MG (10MEQ) TAB PO SCH ×2 (08:44→20:19)
[2019-03-03] MEDS: tiZANidine 4 MG TAB PO SCH ×3 (08:44→20:20)
[2019-03-03] MEDS: VITAMIN D 1,000 INTERNATIONAL UNITS TABLET PO SCH ×2 (08:45→20:53)
[2019-03-03] MEDS: clonazePAM 0.5 MG TAB PO SCH ×2 (08:46→20:20)
[2019-03-03] MEDS: ASPIRIN 81 MG ENTERIC TAB PO SCH (08:46)
[2019-03-03] MEDS: CARVedilol 12.5 MG TAB PO SCH ×2 (08:46→20:24)
[2019-03-03] MEDS: FERROUS SULFATE 325MG TAB PO SCH (08:46)
[2019-03-03] MEDS: SPIRONOLACTONE 25 MG TAB PO SCH ×2 (09:12→17:40)
[2019-03-03] MEDS: hydrALAZINE INJ 20 MG/ML VIAL IV PRN ×3 (09:12→23:38)
[2019-03-03] MEDS: ACETAMINOPHEN TAB 650MG DOSE (2X325MG) PO PRN ×2 (09:19→22:39)
--- NOTE | 2019-03-03 10:12 | IPNPDOC ---
Subjective Date Seen The patient was seen on 03/03/19. Subjective Chief Complaint/HPI Patient is clinically stable. Offers no new complaints. No more neuro symptoms General: Denies: ROS Unobtainable, Chills, Night Sweats, Fatigue, Malaise, Normal Appetite, Other Symptoms Constitutional: Denies: Chills, Fever, Malaise, Night Sweats, Weakness, Fatigue, Weight Loss, Lethargy, Other Pulmonary: Denies: Dyspnea, Cough, Pleuritic Chest Pain, Other Symptoms Cardiovascular: Denies: Chest Pain, Palpitations, Orthopnea, Paroxysmal Noc. Dyspnea, Edema, Lt Headedness, Other Symptoms Gastrointestinal: Denies: Nausea, Vomiting, Abdominal Pain, Diarrhea, Constipation, Melena, Hematochezia, Other Symptoms Musculoskeletal: Denies: Neck Pain, Back Pain, Shoulder Pain, Arm Pain, Hand Pain, Leg Pain, Foot Pain, Joint Pain, Muscle Pain, Spasms, Other Symptoms Neurological: Denies: Weakness, Numbness, Incoordination, Change in speech, Confusion, Seizures, Other Symptoms Objective Physical Examination ENT Exam: Positive: Atraumatic, Mucous membr. moist/pink Neck Exam: Positive: Supple Chest Exam: Positive: Clear to auscultation Heart Exam: Positive: Rate Normal, Normal S1, Normal S2 Abdomen Exam: Positive: Soft Extremity Exam: Positive: Edema (. Bilateral pedal edema) Skin Exam: Positive: Nl turgor and temperature Neuro Exam: Positive: Strength at 5/5 X4 ext, Sensation Intact, Cranial Nerves 3-12 NL Assessment /Plan Problems (1) CVA (cerebral vascular accident) Status: Acute Problem Text: Patient's MRI is consistent with: There is a very small subcentimeter focus of restricted diffusion indicating acute ischemia in the right central elpidio. There is an old lacunar infarct in the left central elpidio MRA of brain and carotid arteries showed no stenosis or obstruction Patient is already on aspirin Plavix and statin ID consult appreciated and agreed with above plan Physical therapy in progress Transferred to the facility. Discussed with social work (2) Hypertensive urgency Status: Resolved Problem Text: Blood pressure slightly elevated today , But will keep an eye on it ever continues to stay more than systolic 150, then we might adjust the dosage of his medications including Coreg and clonidine Continue all present medications (3) Diabetes mellitus Status: Chronic Problem Text: Fingerstick blood sugar Before meals and at bedtime with coverage Continue home meds Restart patient's basal insulin as well (4) Acute kidney injury Status: Acute Problem Text: patient's BUN/creatinine today is 28 and cr 1.49improving very well Plan/VTE VTE Prophylaxis Ordered?: Yes VS, I&O, 24H, Fishbone Vital Signs/I&O Vital Signs Date Time Temp Pulse Resp B/P (MAP) Pulse Ox O2 Delivery O2 Flow Rate FiO2 03/03/19 09:12 172/60 03/03/19 08:46 65 03/03/19 08:00 97.4 21 94 Room Air I&O- Last 24 Hours up to 6 AM0 03/03/19 06:00 Intake Total 1770 ml Output Total 2600 ml Balance -830 ml Laboratory Data 24H LABS Laboratory Tests 2 03/02/19 11:51: Bedside Glucose (Misc Panel) 253H 03/02/19 16:35: Bedside Glucose (Misc Panel) 249H 03/02/19 19:40: Bedside Glucose (Misc Panel) 300H 03/03/19 05:21: Immature Granulocyte % (Auto) 0.6, Neutrophils (%) (Auto) 58.1, Lymphocytes (%) (Auto) 29.2, Monocytes (%) (Auto) 10.5H, Eosinophils (%) (Auto) 1.2, Basophils (%) (Auto) 0.4, Neutrophils # (Auto) 3.0, Lymphocytes # (Auto) 1.5, Monocytes # (Auto) 0.5, Eosinophils # (Auto) 0.1, Basophils # (Auto) 0.0, Nucleated Red Blood Cells % (auto) 0.0, Anion Gap 5L, Glomerular Filtration Rate 36.6L, Calcium Level 8.7L, Magnesium Level 2.3, Total Bilirubin 0.4, Aspartate Amino Transf (AST/SGOT) 8, Alanine Aminotransferase (ALT/SGPT) 14, Alkaline Phosphatase 42L, Total Protein 7.3, Albumin 3.2, Albumin/Globulin Ratio 0.78L CBC/BMP Laboratory Tests 03/03/19 05:21 MILI WISEMAN MD Mar 03, 2019 10:12
[2019-03-03] MEDS: FUROSEMIDE 100 MG/10 ML VIAL (J1940) IV SCH ×3 (12:28→23:35)
[2019-03-03] MEDS: ISOSORBIDE MON. (IMDUR) 30 MG XR TAB PO SCH (20:20)
[2019-03-03] MEDS: PRAVASTATIN 20 MG TAB PO SCH (20:23)
[2019-03-03] MEDS: LEVEMIR (INSULIN DETEMIR) 1 UNITS/0.01ML SC SCH (20:53)
--- NOTE | 2019-03-03 23:09 | IPN ---
DATE: 03/02/2019 SUBJECTIVE: Yolanda is seen and examined this morning sitting out of bed in the chair. She complains of leg cramping and also complains of ongoing leg edema. She also complains of weakness and trouble with walking. Vital signs: Temperature 97.6, pulse 59, respiratory rate 20, blood pressure 144/86, saturating 95% on room air. Intake yesterday was 1620, urine output yesterday was 1375, urine output today is already 2.1 liters. Weight in the bed scale today is not recorded. General: The patient is seen sitting in the chair, elderly and obese female, awake, alert and oriented, in no apparent distress. Extraocular muscles are intact. Pupils are equally round and reactive to light. Neck is supple. Jugular veins cannot be assessed secondary to body habitus. Heart sounds are regular, S1, S2. There is 3+ edema present in the bilateral lower extremities. Respiratory: There is diminished and decreased breath sounds at the bases. There is no tachypnea nor accessory muscle use. The abdomen is soft and obese. There is ileal conduit. Musculoskeletal: There is 3+ edema of the legs. Neurologic: The patient moves all four extremities on command and is oriented times three, interactive and conversational. Her speech is minimally dysarthric. Strength is 5/5 in all four extremities. White count 4.8, hemoglobin 10.7, platelets 183, sodium 141, potassium 3.6, bicarbonate 33, BUN 29, creatinine 1.6, magnesium 2.4. INPATIENT MEDICATIONS: Reviewed by myself. She continues on Lasix 40 mg IV every 6 hours and spironolactone 50 mg twice daily. Remainder of medications are unchanged as compared to yesterday. PROBLEMS: 1. Chronic kidney disease, stage III. with very mild acute kidney injury in the setting of decompensated diastolic congestive heart failure. Creatinine bumped up marginally from 1.4 to 1.6. Her baseline creatinine is in the low 1s. She is volume overloaded. She is being diuresed with Lasix 40 mg IV every 6 hours, and I am making no change to the current diuretic regimen. I would keep her off of angiotensin-converting enzyme (JAYLON)/ARB. Continue to monitor urine output and electrolytes. 2. Decompensated diastolic congestive heart failure. She is significantly volume overloaded. She is being diuresed with Lasix 40 mg every 6 hours and spironolactone 50 mg twice daily. Her potassium and magnesium are acceptable. We will keep a close eye on electrolytes, and she continues on oral fluid restriction. 3. Hypertensive urgency, now resolved. Blood pressures are much improved. Systolics are mostly in the 140s. No change is being made to the current antihypertensive regimen. I would keep her off of JAYLON and ARB at this time. Blood pressure should improve with further diuresis. 4. Acute small right elpidio ischemic stroke in this patient with a history of old stroke, already on aspirin and Plavix and evaluated by neurology.
[2019-03-04] VITALS (8 sets, daily range): BP systolic 148–178; BP diastolic 58–80
[2019-03-04 05:34] LABS: HEMATOCRIT 32.4 % (36.0-47.0); HEMOGLOBIN 10.2 g/dl (12.0-15.5); MEAN CORPUSCULAR HGB CONC 31.5 g/dl (32.0-36.5); MEAN CORPUSCULAR VOLUME 98.5 fl (80.0-96.0); PLATELET COUNT, AUTOMATED 191 10^3/uL (150-450); RED BLOOD COUNT 3.29 10^6/uL (4.00-5.40); WHITE BLOOD COUNT 5.4 10^3/uL (4.0-10.0)
[2019-03-04 05:59] LABS: CALCIUM LEVEL 8.6 MG/DL (8.8-10.2); CREATININE FOR GFR 1.58 MG/DL (0.55-1.30); GLOMERULAR FILTRATION RATE 34.2 (>39); MAGNESIUM LEVEL 2.3 MG/DL (1.8-2.4); POTASSIUM SERUM 3.4 MEQ/L (3.5-5.1)
[2019-03-04] MEDS ORDERED: PRAMIPEXOLE (MIRAPEX) 0.125 MG TAB PO ONE (06:00)
[2019-03-04] MEDS: hydrALAZINE INJ 20 MG/ML VIAL IV PRN (06:05)
[2019-03-04] MEDS: FUROSEMIDE 100 MG/10 ML VIAL (J1940) IV SCH ×3 (06:06→18:10)
[2019-03-04] MEDS: SLF 3 ML SYR IV SCH ×3 (06:06→20:41)
[2019-03-04] MEDS ORDERED: cloNIDine HCL 0.2 MG/24 HR PATCH TOP SCH (09:00)
[2019-03-04] MEDS: rOPINIRole 2MG TAB PO SCH ×3 (09:05→20:25)
[2019-03-04] MEDS: CARVedilol 12.5 MG TAB PO SCH ×2 (09:06→20:25)
[2019-03-04] MEDS: VITAMIN D 1,000 INTERNATIONAL UNITS TABLET PO SCH ×2 (09:06→20:25)
[2019-03-04] MEDS: POTASSIUM CITRATE 1080 MG (10MEQ) TAB PO SCH ×2 (09:06→20:28)
[2019-03-04] MEDS: ASPIRIN 81 MG ENTERIC TAB PO SCH (09:06)
[2019-03-04] MEDS: tiZANidine 4 MG TAB PO SCH ×3 (09:08→20:27)
[2019-03-04] MEDS: FERROUS SULFATE 325MG TAB PO SCH (09:08)
[2019-03-04] MEDS: KORLYM PO SCH (09:09)
[2019-03-04] MEDS: POTASSIUM CHLORIDE 10 MEQ SR TABLET PO SCH (09:09)
[2019-03-04] MEDS: CLOPIDOGREL 75 MG TAB PO SCH (09:09)
[2019-03-04] MEDS: MAGNESIUM OXIDE 400 MG TAB (MAG-OX) PO SCH ×2 (09:09→20:28)
[2019-03-04] MEDS: DOCUSATE SODIUM 100 MG CAP PO SCH ×2 (09:09→20:28)
[2019-03-04] MEDS: levETIRAcetam 250MG TABLET (KEPPRA) PO SCH ×2 (09:09→20:27)
[2019-03-04] MEDS: HEPARIN SOD (PORCINE) 5000 UNITS/ML VIAL (J1644 PER 1000UNITS) SC SCH ×2 (09:10→20:24)
[2019-03-04] MEDS: clonazePAM 0.5 MG TAB PO SCH ×2 (09:10→20:28)
[2019-03-04] MEDS: HumaLOG INSULIN (NovoLOG) PER UNIT SC SCH ×4 (09:12→20:41)
[2019-03-04] MEDS: SPIRONOLACTONE 25 MG TAB PO SCH ×2 (09:16→18:10)
--- NOTE | 2019-03-04 10:55 | IPNPDOC ---
Subjective Date Seen The patient was seen on 03/04/19. Subjective Chief Complaint/HPI Patient is comfortable sitting in chair. Offers no new complaints, awaiting transfer to rehabilitation facility General: Denies: ROS Unobtainable, Chills, Night Sweats, Fatigue, Malaise, Normal Appetite, Other Symptoms Constitutional: Denies: Chills, Fever, Malaise, Night Sweats, Weakness, Fatigue, Weight Loss, Lethargy, Other Pulmonary: Denies: Dyspnea, Cough, Pleuritic Chest Pain, Other Symptoms Cardiovascular: Denies: Chest Pain, Palpitations, Orthopnea, Paroxysmal Noc. Dyspnea, Edema, Lt Headedness, Other Symptoms Endocrine: Denies: Polydipsia, Polyphagia, Polyuria, Heat Intolerance, Cold Intolerance, Other Endocrine Sx Musculoskeletal: Denies: Neck Pain, Back Pain, Shoulder Pain, Arm Pain, Hand Pain, Leg Pain, Foot Pain, Joint Pain, Muscle Pain, Spasms, Other Symptoms Objective Physical Examination ENT Exam: Positive: Atraumatic, Mucous membr. moist/pink Neck Exam: Positive: Supple Chest Exam: Positive: Clear to auscultation Heart Exam: Positive: Rate Normal, Normal S1, Normal S2 Abdomen Exam: Positive: Soft Extremity Exam: Positive: Edema (. Bilateral pedal edema) Skin Exam: Positive: Nl turgor and temperature Neuro Exam: Positive: Strength at 5/5 X4 ext, Sensation Intact, Cranial Nerves 3-12 NL Assessment /Plan Problems (1) CVA (cerebral vascular accident) Status: Acute Problem Text: Patient's MRI is consistent with: There is a very small subcentimeter focus of restricted diffusion indicating acute ischemia in the right central elpidio. There is an old lacunar infarct in the left central elpidio MRA of brain and carotid arteries showed no stenosis or obstruction Patient is already on aspirin Plavix and statin neuro consult appreciated and agreed with above plan Patient is awaiting transfer to rehabilitation facility was the bed is available. Patient will be transferred out (2) Hypertensive urgency Status: Resolved Problem Text: Blood pressure slightly still elevated, would increase clonidine to 0.2 mg per hour patch Continue Coreg as per orders. Cannot increased secondary to baseline heart rate of 60 Monitor clinically (3) Diabetes mellitus Status: Chronic Problem Text: Fingerstick blood sugar Before meals and at bedtime with coverage Continue home meds Restart patient's basal insulin as well (4) Acute kidney injury Status: Acute Problem Text: patient's BUN/creatinine today is 28 and cr 1.49improving very well Plan/VTE VTE Prophylaxis Ordered?: Yes VS, I&O, 24H, Fishbone Vital Signs/I&O Vital Signs Date Time Temp Pulse Resp B/P (MAP) Pulse Ox O2 Delivery O2 Flow Rate FiO2 03/04/19 10:49 152/60 03/04/19 07:19 97.7 60 20 98 03/04/19 04:00 Room Air I&O- Last 24 Hours up to 6 AM 03/04/19 06:00 Intake Total 1780 ml Output Total 2700 ml Balance -920 ml Laboratory Data 24H LABS Laboratory Tests 2 03/03/19 11:57: Bedside Glucose (Misc Panel) 213H 03/03/19 17:17: Bedside Glucose (Misc Panel) 233H 03/03/19 20:46: Bedside Glucose (Misc Panel) 268H 03/04/19 05:09: Nucleated Red Blood Cells % (auto) 0.0, Anion Gap 3L, Glomerular Filtration Rate 34.2L, Calcium Level 8.6L, Magnesium Level 2.3 CBC/BMP Laboratory Tests 03/04/19 05:09 MILI WISEMAN MD Mar 04, 2019 10:55
--- NOTE | 2019-03-04 11:34 | IPN ---
DATE: 03/03/2019 SUBJECTIVE: Yolanda is seen and examined at the bedside. She complains of ongoing leg edema and cramping. Her blood pressures remain high systolic 150 to 170 this morning. Vital Signs: Temperature 97.3, pulse 59, respiratory rate 17, blood pressure 172/60, saturating 95% on room air. Intake yesterday was 1920, urine output yesterday was 2850, negative 1 liter, weight in bed scale today is 87.2 kg. General: The patient is seen sitting in the chair. Obese female awake, alert, oriented, in no apparent distress. Extraocular muscles are intact. Tongue is moist. Neck is supple. Jugular veins cannot be assessed secondary to body habitus. Heart sounds are regular, S1, S2. There is significant 2-3+ edema in the legs, mostly below the knee. Respiratory: Breath sounds are clear to auscultation. She is seen comfortable on room air. Abdomen is soft and obese. There are bowel sounds. There is an ileal conduit draining clear yellow urine. Neurologic: She is oriented times three, interactive and conversational. Strength is 5/5. Extremities are positive for significant edema in the legs and no edema in the arms. LABS: White count 5.1, hemoglobin 10.6, platelet 181, sodium 140, potassium 3.6, bicarbonate 32, BUN 28, creatinine 1.4. INPATIENT MEDICATIONS: I increased her spironolactone to 75 mg twice daily and I increased her furosemide to 60 mg every 6 hours IV. I note the primary team gave her a one-time dose of ropinirole 4 mg. The remainder medications are unchanged from prior. PROBLEMS: 1. Chronic kidney disease (CKD) stage 3 with very mild acute kidney injury. Today's serum creatinine did improve with good diuretic response and net negative fluid balance of 1 liter in the past 24 hours. Her diuretics are slightly escalated and we will keep an eye on her urine output and renal function. 2. Hypertensive urgency. Blood pressures are still running rather high, systolic 150s-170s. I am slightly increasing her diuretics. Otherwise, I have made no change to her antihypertensives. I feel her blood pressure is likely to improve with diuresis. 3. Diastolic congestive heart failure. She is volume overloaded. I increased the Lasix to 60 mg IV every 6 hours and I increased the spironolactone to 75 mg twice daily. We will see how she fares. 4. Acute stroke. She has been seen by neurology. She is on aspirin, Plavix and statin. 5. Hypokalemia. Continue potassium sparing diuretic and potassium supplementation.
[2019-03-04] MEDS: ACETAMINOPHEN TAB 650MG DOSE (2X325MG) PO PRN ×2 (15:48→20:29)
--- NOTE | 2019-03-04 18:26 | IPN ---
DATE: 03/04/2019 SUBJECTIVE: Yolanda is seen and examined sitting out of bed to the chair. She reports that her cramping is improved. Her blood pressures are somewhat labile. She denies shortness of breath at rest and tells me she has been walking around the room now. Vital signs: Temperature 97.2, pulse 54, respiratory rate 20, blood pressure 164/68, saturating 95% on room air. Intake yesterday was 1730, output yesterday was 2900, net negative 1170. Weight in the bed scale today is not recorded. General: The patient is seen sitting out of bed to the recliner. Awake, alert, oriented, in no apparent distress. Extraocular muscles are intact. Tongue is moist. Neck is supple. Jugular veins could not be assessed secondary to body habitus. Heart sounds are regular and bradycardic, S1, S2. There is still 2+ edema in the legs, mostly below the knee. Respiratory: Breath sounds are distant secondary to body habitus but fairly clear. She is comfortable on room air. Abdomen is soft and obese. There are bowel sounds. There is an ileal conduit draining clear yellow urine. Neurologic: She is oriented times three, interactive, conversational. Musculoskeletal: Strength is 5/5 in all four extremities. Extremities are positive for 2+ edema in the legs. No clubbing or cyanosis. LABORATORY DATA: White count 5.4, hemoglobin 10.2, platelets 191, sodium 140, potassium 3.4, bicarbonate 34, BUN 32, creatinine 1.5, magnesium 2.3. INPATIENT MEDICATIONS: Reviewed by myself. I notice clonidine was increased by the primary team. Hydralazine was discontinued. She was given a dose of potassium chloride 40 mEq times one. Remainder of medications are unchanged from prior. PROBLEMS: 1. Chronic kidney disease stage III with mild acute kidney injury in the setting of volume overload and increased diuretics. She is net negative about 1 liter in the past 24 hours. I am making no change to her diuretic regimen today. We will continue to keep an eye on her urine output and renal function. Her creatinine is fairly close to baseline. 2. Diastolic congestive heart failure, decompensated. She is volume overloaded. She is net negative 1 liter the past 24 hours. Continue current dose of Lasix and spironolactone. I have added a 1500 mL fluid restriction. 3. Acute stroke. Seen by neurology. On aspirin, Plavix and statin. 4. Hypokalemia secondary to diuresis. Continue spironolactone 75 mg twice daily, potassium citrate, and she was also given a potassium chloride supplementation. 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 5. Hypertension. Blood pressures remain uncontrolled. Primary team already increased her clonidine. Blood pressures are likely to improve further with adequate diuresis.
[2019-03-04] MEDS: PRAVASTATIN 20 MG TAB PO SCH (20:25)
[2019-03-04] MEDS: ISOSORBIDE MON. (IMDUR) 30 MG XR TAB PO SCH (20:28)
[2019-03-04] MEDS: LEVEMIR (INSULIN DETEMIR) 1 UNITS/0.01ML SC SCH (20:39)
[2019-03-05] VITALS: BP 123/59
[2019-03-05] MEDS: FUROSEMIDE 100 MG/10 ML VIAL (J1940) IV SCH ×3 (00:07→12:43)
[2019-03-05 04:00] VITALS: BP 166/80
[2019-03-05] MEDS: ACETAMINOPHEN TAB 650MG DOSE (2X325MG) PO PRN (04:19)
[2019-03-05] MEDS: SLF 3 ML SYR IV SCH ×2 (05:19→13:34)
[2019-03-05 06:09] LABS: BASO % 0.5 % (0.0-1.0); EOS # 0.1 10^3/uL (0.0-0.5); EOS % 1.6 % (0.0-3.0); HEMATOCRIT 34.2 % (36.0-47.0); HEMOGLOBIN 10.6 g/dl (12.0-15.5); LYMPH # 1.5 10^3/uL (1.5-5.0); LYMPH % 35.3 % (24.0-44.0); MEAN CORPUSCULAR HEMOGLOBIN 31.1 pg (27.0-33.0); MEAN CORPUSCULAR VOLUME 100.3 fl (80.0-96.0); MONO # 0.5 10^3/uL (0.0-0.8); MONO % 11.4 % (0.0-5.0); NEUTROPHILS # 2.2 10^3/uL (1.5-8.5); NEUTROPHILS % 50.5 % (36.0-66.0); PLATELET COUNT, AUTOMATED 171 10^3/uL (150-450); RED BLOOD COUNT 3.41 10^6/uL (4.00-5.40); WHITE BLOOD COUNT 4.3 10^3/uL (4.0-10.0)
[2019-03-05 06:37] LABS: ALBUMIN 3.2 GM/DL (3.2-5.2); BILIRUBIN,TOTAL 0.4 MG/DL (0.2-1.0); CALCIUM LEVEL 8.5 MG/DL (8.8-10.2); CREATININE FOR GFR 1.56 MG/DL (0.55-1.30); GLOMERULAR FILTRATION RATE 34.7 (>39); MAGNESIUM LEVEL 2.5 MG/DL (1.8-2.4); POTASSIUM SERUM 3.5 MEQ/L (3.5-5.1)
[2019-03-05 08:00] VITALS: BP 180/72
[2019-03-05] MEDS: VITAMIN D 1,000 INTERNATIONAL UNITS TABLET PO SCH (08:31)
[2019-03-05] MEDS: POTASSIUM CHLORIDE 10 MEQ SR TABLET PO SCH (08:31)
[2019-03-05] MEDS: tiZANidine 4 MG TAB PO SCH ×2 (08:31→15:53)
[2019-03-05] MEDS: MAGNESIUM OXIDE 400 MG TAB (MAG-OX) PO SCH (08:31)
[2019-03-05] MEDS: SPIRONOLACTONE 25 MG TAB PO SCH (08:32)
[2019-03-05] MEDS: FERROUS SULFATE 325MG TAB PO SCH (08:32)
[2019-03-05] MEDS: rOPINIRole 2MG TAB PO SCH ×2 (08:32→15:53)
[2019-03-05] MEDS: levETIRAcetam 250MG TABLET (KEPPRA) PO SCH (08:32)
[2019-03-05] MEDS: POTASSIUM CITRATE 1080 MG (10MEQ) TAB PO SCH (08:32)
[2019-03-05] MEDS: ASPIRIN 81 MG ENTERIC TAB PO SCH (08:32)
[2019-03-05] MEDS: DOCUSATE SODIUM 100 MG CAP PO SCH (08:32)
[2019-03-05] MEDS: CLOPIDOGREL 75 MG TAB PO SCH (08:32)
[2019-03-05] MEDS: HumaLOG INSULIN (NovoLOG) PER UNIT SC SCH ×2 (08:33→12:42)
[2019-03-05] MEDS: HEPARIN SOD (PORCINE) 5000 UNITS/ML VIAL (J1644 PER 1000UNITS) SC SCH (08:33)
[2019-03-05] MEDS: clonazePAM 0.5 MG TAB PO SCH (08:33)
[2019-03-05] MEDS: KORLYM PO SCH (08:33)
[2019-03-05] MEDS: CARVedilol 12.5 MG TAB PO SCH (08:46)
[2019-03-05 11:24] VITALS: BP_SYST 162; BP_SYST 170; BP_DIAS 78
[2019-03-05 12:43] VITALS: BP 180/68
[2019-03-05] MEDS ORDERED: **hydrALAZINE** 50 MG TAB PO ONE (13:00)
[2019-03-05] MEDS ORDERED: metOLazone 2.5 MG TAB PO ONE (14:30)
[2019-03-05 15:02] VITALS: BP 140/64
--- NOTE | 2019-03-05 16:06 | DS.PDOC ---
Discharge Summary General Date of Admission Feb 28, 2019 at 10:44 Date of Discharge 03/05/19 Attending Physician: DIMPLE KIRBY MD Discharge Summary PROCEDURES PERFORMED DURING STAY: None. ADMITTING DIAGNOSES: 1. Acute CVA, acute on chronic kidney disease. DISCHARGE DIAGNOSES: 1. Acute CVA, acute on chronic kidney disease. COMPLICATIONS/CHIEF COMPLAINT: Hypertensive Urgency Tia. HISTORY OF PRESENT ILLNESS: 74-year-old female with past medical history of diabetes mellitus, chronic kidney disease, CHF, hypertension, CVA, was admitted for acute CVA and acute on chronic kidney disease. Patient had stopped taking her aspirin, was admitted with acute lacunar stroke, a value by neurology, started on aspirin, Plavix and statin. Patient arrived by physical therapy and rehabilitation is recommended. Patient also presents with acute on chronic kidney disease, significantly volume overloaded, treated with IV Lasix with improvement in renal function and lower extremity edema. Patient will continue to require further diuresis while in acute rehabilitation unit, clinically with ampicillin for discharge to ARU. HOSPITAL COURSE: As above. DISCHARGE MEDICATIONS: Please see below. ALLERGIES: Please see below. PHYSICAL EXAMINATION: VITAL SIGNS: Please see below. GENERAL: No distress HEENT: Normocephalic, atraumatic, moist mucous membranes NECK: Supple CARDIOVASCULAR EXAMINATION: S1, S2, no murmurs RESPIRATORY EXAMINATION: Scattered rhonchi, no wheezing ABDOMINAL EXAMINATION: Soft, nontender, nondistended, positive bowel sounds EXTREMITIES: Profound bilateral lower extremity pitting edema SKIN: No rash NEUROLOGICAL EXAMINATION: Alert and oriented 3, no focal deficits PSYCHIATRIC EXAMINATION: Calm and cooperative LABORATORY DATA: Please see below. IMAGING: MRI showed Acute lacunar stroke along with prior strokes PROGNOSIS: Fair ACTIVITY: As tolerated. DIET: Cardiac with consistent carbs DISCHARGE PLAN: Follow with neurologist and PCP after discharge from acute rehabilitation unit DISPOSITION: Acute rehabilitation unit. DISCHARGE INSTRUCTIONS: 1. As above. DISCHARGE CONDITION: Stable. TIME SPENT ON DISCHARGE: Greater than 35 minutes. Vital Signs/I&Os Vital Signs Date Time Temp Pulse Resp B/P (MAP) Pulse Ox O2 Delivery O2 Flow Rate FiO2 03/05/19 15:02 140/64 (89) 03/05/19 11:24 60 03/05/19 10:00 98.3 19 94 Room Air I&O- Last 24 Hours up to 6 AM 03/05/19 05:59 Intake Total 1390 ml Output Total 3050 ml Balance -1660 ml Laboratory Data Labs 24H Laboratory Tests 2 03/04/19 16:57: Bedside Glucose (Misc Panel) 227H 03/04/19 20:38: Bedside Glucose (Misc Panel) 290H 03/05/19 05:45: Immature Granulocyte % (Auto) 0.7, Neutrophils (%) (Auto) 50.5, Lymphocytes (%) (Auto) 35.3, Monocytes (%) (Auto) 11.4H, Eosinophils (%) (Auto) 1.6, Basophils (%) (Auto) 0.5, Neutrophils # (Auto) 2.2, Lymphocytes # (Auto) 1.5, Monocytes # (Auto) 0.5, Eosinophils # (Auto) 0.1, Basophils # (Auto) 0.0, Nucleated Red Blood Cells % (auto) 0.0, Anion Gap 4L, Glomerular Filtration Rate 34.7L, Calcium Level 8.5L, Magnesium Level 2.5H, Total Bilirubin 0.4, Aspartate Amino Transf (AST/SGOT) 8, Alanine Aminotransferase (ALT/SGPT) 15, Alkaline Phosphatase 44L, Total Protein 7.0, Albumin 3.2, Albumin/Globulin Ratio 0.84L 03/05/19 11:41: Bedside Glucose (Misc Panel) 213H CBC/BMP Laboratory Tests 03/05/19 05:45 FSBS Laboratory Tests Test 03/04/19 16:57 03/04/19 20:38 03/05/19 11:41 Range/Units Bedside Glucose (Misc Panel) 227 290 213 83-110 MG/DL Discharge Medications Scheduled Aspirin (Aspirin EC) 81 Mg Tab, 81 MG PO DAILY, (Reported) Carvedilol (Carvedilol) 25 Mg Tablet, 25 MG PO BID, (Reported) Cholecalciferol (Vitamin D3) (Vitamin D3) 2,000 Unit Tablet, 2,000 UNIT PO BID, (Reported) Clonazepam (Clonazepam) 0.5 Mg Tablet, 0.25 MG PO BID, (Reported) Clonidine (Clonidine) 0.1 Mg Patch.tdwk, 0.1 MG TD 1XWK, (Reported) SUNDAYS - CURRENTLY APPLIED TO RIGHT CHEST Clopidogrel Bisulfate (Clopidogrel) 75 Mg Tab, 75 MG PO DAILY, (Reported) Docusate Sodium (Colace) 100 Mg Capsule, 100 MG PO DAILY, (Reported) Ferrous Sulfate (Ferrous Sulfate) 325 Mg Tablet, 325 MG PO DAILY, (Reported) Hydralazine HCl (Hydralazine HCl) 10 Mg Tablet, 10 MG PO DAILY, (Reported) TAKES AT NOON Insulin Glargine,Hum.rec.anlog (Basaglar Kwikpen U-100) 100 Unit/1 Ml Insuln. pen, 40 UNIT SC QHS, (Reported) Insulin Human Lispro (Novolog) 100 U/Ml Inj, 1 DOSE SC AC, (Reported) PER SLIDING SCALE, 20-25 UNITS Isosorbide Mononitrate (Isosorbide Mononitrate ER) 30 Mg Tab.er.24h, 30 MG PO QHS, (Reported) Levetiracetam (Levetiracetam) 250 Mg Tablet, 250 MG PO BID, (Reported) Magnesium Oxide (Magnesium Oxide) 250 Mg Tablet, 250 MG PO BID, (Reported) Mifepristone (Korlym) 300 Mg Tablet, 300 MG PO BID, (Reported) Potassium Citrate (Potassium Citrate 10MEQ (Urocit-K)) 10 Meq Tablet.er, 10 MEQ PO BID, (Reported) Pravastatin Sodium (Pravastatin Sodium) 40 Mg Tab, 40 MG PO QHS, (Reported) Ropinirole HCl (Ropinirole HCl) 2 Mg Tablet, 2 MG PO BID, (Reported) TAKES AT 0900 & 1500 Ropinirole HCl (Ropinirole HCl) 2 Mg Tablet, 4 MG PO QHS, (Reported) Spironolactone (Spironolactone) 25 Mg Tablet, 50 MG PO BID, (Reported) Tizanidine HCl (Tizanidine HCl) 2 Mg Tablet, 2 MG PO TID, (Reported) Torsemide (Torsemide) 20 Mg Tablet, 20 MG PO DAILY, (Reported) Scheduled PRN Hydralazine HCl (Hydralazine HCl) 10 Mg Tablet, 10 MG PO QHS PRN for BP > 160, (Reported) Allergies Coded Allergies: No Known Allergies (Unverified , 05/27/18) DIMPLE KIRBY MD Mar 05, 2019 16:06
[2019-03-05] MEDS ORDERED: ISOSORBIDE MON. (IMDUR) 60 MG XR TAB PO SCH (21:00)
[2019-03-05] MEDS ORDERED: POTASSIUM CHLORIDE 10 MEQ SR TABLET PO SCH (21:00)
--- NOTE | 2019-03-06 08:52 | IPN ---
DATE OF SERVICE: 03/05/2019 SUBJECTIVE: Yolanda is seen and examined sitting out of bed to the chair. Blood pressures remained elevated today. She is net negative again 1 liter in the past 24 hours. The patient reports she has been ambulating only around the room. Denies shortness of breath at rest. Complains of ongoing leg edema. VITAL SIGNS: Temperature 98.3, pulse 78, respiratory rate 19, blood pressure 170/78, saturating 94% on room air. PHYSICAL EXAMINATION: She is seen sitting out of bed to the chair, awake, alert and oriented, in no apparent distress. Extraocular muscles are intact. Tongue is moist. Neck is supple. Jugular veins cannot be assessed secondary to body habitus. Heart sounds are regular and mildly bradycardic. There is 2 to 3+ pitting edema still present in the legs, mostly below the knees. Breath sounds are distant secondary to body habitus, but fairly clear, diminished at the bases. She is comfortable on room air. Abdomen is soft and obese. There are bowel sounds. There is an ileal conduit draining clear yellow urine. Neurologic: Oriented times three, interactive, conversational. Musculoskeletal: Strength is bilateral 5 in all four extremities. Extremities have 2 to 3+ edema in the legs. No clubbing or cyanosis. LABS: Sodium 143, potassium 3.5, bicarbonate 35, BUN 29, creatinine 1.5, magnesium 2.5, hemoglobin 10.6. INPATIENT MEDICATIONS: I increased her potassium chloride to 40 mEq twice a day. I cut her magnesium down to 400 mg daily. I ordered metolazone 1.25 mg by mouth times one. PROBLEMS: 1. Chronic kidney disease (CKD) stage 3 with mild acute kidney injury in the setting of volume overload. She is net negative about 1 liter daily the past few days. I am increasing her diuretics. We will give a small dose of metolazone today. I am hesitant to give her a larger dose because of likelihood of significant potassium losses. Her renal function is fairly close to baseline. 2. Diastolic congestive heart failure decompensated. She is net negative daily about 1 liter. She is compliant with fluid restriction. Continue with Lasix every 6 hours and spironolactone 75 mg twice a day. Added a small dose of metolazone today. Repeat potassium level this evening. 3. Hypokalemia. Potassium chloride was increased to 40 mEq twice a day. She also continues on potassium citrate. We will repeat a potassium level this evening. 4. Hypermagnesemia. Magnesium was decreased to 400 mg once daily. 5. Hypertension. Blood pressures remain uncontrolled. Diuretics are being increased to help with sodium and water excretion which should help with her blood pressure.
[2019-03-06] MEDS ORDERED: MAGNESIUM OXIDE 400 MG TAB (MAG-OX) PO SCH (09:00)
== END 2019-03-05 16:57 | DRG 64 ==
LOC: M ED 07:30 → M ED INP 10:44 → ENRESERVTM 11:24 → ENRESERVDT 11:24 → M PCU 12:32
PROVIDERS: ADMIT Internal Medicine; ATTEND Internal Medicine
DX: I63.531 Cerebral infarction due to unspecified occlusion or stenosis of right posterior cerebral artery (principal); I50.33 Acute on chronic diastolic (congestive) heart failure; E24.9 Cushing's syndrome, unspecified; N17.9 Acute kidney failure, unspecified; I13.0 Hypertensive heart and chronic kidney disease with heart failure and stage 1 through stage 4 chronic kidney disease, or unspecified chronic kidney disease; I50.812 Chronic right heart failure; E66.9 Obesity, unspecified; I65.21 Occlusion and stenosis of right carotid artery; E11.42 Type 2 diabetes mellitus with diabetic polyneuropathy; I25.10 Atherosclerotic heart disease of native coronary artery without angina pectoris; E78.5 Hyperlipidemia, unspecified; G47.33 Obstructive sleep apnea (adult) (pediatric); M19.90 Unspecified osteoarthritis, unspecified site; E11.51 Type 2 diabetes mellitus with diabetic peripheral angiopathy without gangrene; R26.89 Other abnormalities of gait and mobility; G47.61 Periodic limb movement disorder; E87.6 Hypokalemia; R47.81 Slurred speech; G25.81 Restless legs syndrome; I27.20 Pulmonary hypertension, unspecified; N18.3 Chronic kidney disease, stage 3 (moderate); E11.22 Type 2 diabetes mellitus with diabetic chronic kidney disease; Z93.3 Colostomy status; Z93.6 Other artificial openings of urinary tract status; N28.89 Other specified disorders of kidney and ureter; D64.9 Anemia, unspecified; Z85.51 Personal history of malignant neoplasm of bladder; Z79.82 Long term (current) use of aspirin; Z79.4 Long term (current) use of insulin; Z79.02 Long term (current) use of antithrombotics/antiplatelets; Z87.891 Personal history of nicotine dependence; Z79.899 Other long term (current) drug therapy; Z98.41 Cataract extraction status, right eye; Z98.42 Cataract extraction status, left eye; Z95.5 Presence of coronary angioplasty implant and graft

== ENCOUNTER 2019-03-05 11:47 | Inpatient (IN) | payer MEDICARE ==
[~2019-03-05] VITALS: Ht 157.5 cm; Wt 83.3 kg
[~2019-03-05 11:47] MED LIST changes: +CLON0.5T2 PO; +COLA100C5 PO; +D-20TAB PO; +ESSE250T PO; +FERR1TAB8 PO; +LEVE250T5 PO; +POTA10808 PO; -ROPI0.5T PO; +ROPI0.5T3 PO; -ROPI1TAB PO; +ROPI1TAB3 PO; +ROPI2TAB3 PO; +SPIR-10 PO
--- NOTE | 2019-03-05 13:42 | HPEPDOC ---
[facility] Intern Note DATE OF ADMISSION: 03-05-19 DATE OF SERVICE: 03-05-19 TIME OF ADMISSION: Please refer to physician's admission order. SOURCE OF ADMISSION INFORMATION: [facility] and patient CHIEF COMPLAINT: stroke HISTORY OF PRESENT ILLNESS: 74F pmh multiple ischemic strokes, severe right carotid artery stenosis s/p CEA 2017, [place] syndrome, hypokalemia, HTN, DM, with peripheral polyneuropathy,CAD s/p stenting, bladder cancer s/p cystectomy with ileal conduit, left adrenal mass, CKD3 who presented to [facility] ED on 02-28-19 with weakness and slurred speech. MRI of her brain showed, There is a very small subcentimeter focus of restricted diffusion indicating acute ischemia in the right central elpidio. There is an old lacunar infarct in the left central elpidio. This left-sided infarct was acute on the June 21, 2018 study. The right pontine infarct is new today. She was seen by neurology who recommended Aspirin, Plavix, and statin therapy. She was followed by renal as well for elevated BPs and fluid overload for which she was treated with IV diuretic and fluid restriction. She also had difficult to control blood pressure requiring a clonidine patch. She was evaluated by therapy, found to be below her prior level of function and deemed appropriate for discharge to ARU on 03-05-19. REVIEW OF SYSTEMS: The following is a completed review of systems and has been reviewed. Review of systems otherwise unremarkable. PAIN: Patient self reports mild leg cramping EYES: No recent vision changes EARS, NOSE, & THROAT: No throat pain, or dysphagia, or rhinorrhea CARDIOVASCULAR: Denies chest pain or palpitations PULMONARY: Denies shortness of breath GASTROINTESTINAL: Denies constipation/diarrhea GENITOURINARY: +ileal conduit MUSCULOSKELETAL: generalized weakness NEUROLOGICAL:no focal tremor, no paresis HEMATOLOGICAL:denies easy bruising SKIN:no rash PSYCHIATRIC: Unremarkable All other review of systems found to be negative. PAST MEDICAL HISTORY: as per HPI PAST SURGICAL HISTORY: as per HPI ALLERGIES: Please see below. MEDICATIONS: Please see below. FAMILY HISTORY:DM SOCIAL HISTORY:former smoker, no ETOH or illicit drugs DIET: consistent carb, low sodium- fluid restrict PHYSICAL EXAMINATION: VITAL SIGNS: Please see below. GENERAL: Pleasant and cooperative. No acute distress. HEENT: PERRL. Extraocular movements intact. Clear conjunctiva CARDIOVASCULAR: Regular rate and rhythm. No murmurs, rubs, or gallops LUNGS: Clear to auscultation bilaterally. No wheezes. No rhonchi ABDOMEN: Soft, nontender, +mildly distended. Positive bowel sounds. Normal active bowel sounds ileostomy NEUROLOGICAL: Alert and oriented times three. Cranial nerves II through XII grossly intact. Sensation grossly intact EXTREMITIES: 4\5 strength bilateral upper extremities. 4\5 strength right lower extremity. 4/5 strength in left lower extremity. + bilat LE edema SKIN: sacrum with blanchable erythema LABORATORY DATA: Please see below. IMAGING:Imaging documentation personally reviewed by record FUNCTIONAL STATUS: Premorbid: Modified Independent mobility with RW, requiring assistance for bathing and dressing On Admission: Min-Mod assist for functional transfers and bed mobility, Min- assist x 2 18 feet GOALS: Mod-I household distances ambulation, functional transfers, dressing, bathing, toileting, medical optimization. 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 Neuro: hx of multiple CVA with new right elpidio infarct, c/u ASa, Plavix, statin for secondary prevention -optimize BP management - Jackie for seizure prophylaxis (added while on inpatient unit) 3. Cardiac: patient with poorly controlled HTN- c/u Coreg, clonidine patch, Imdur, IV lasix will add hydralazine prn -chronic diastolic CHF, c/u diuretics, fluid restriction, will consult renal to assist 4. Resp: encourage incentive spirometry, monitor for infection -+hx of SOA, patient encouraged to have bring in CPAP machine 5. Endo: pmh DM with peripheral neuropathy- c/u Levemir and ISS, adjust prn -Dee syndrome with hypokalemia- c/u potassium and Korlym 6. Renal: CKD3, c/u Urocrit, will consult renal to follow fluid management and kidney function 7. Pain: Tylneol prn and tizanidine 8. Psych: Klonidine BID 9. FVT ppx: heparin and TEds, will order dopplers to r/o DVT 10.GI ppx: protonix 11. Dispo: TBD POST ADMISSION PHYSICIAN EVALUATION: Medical and functional status: Description of medical status, medical assessment: As above. Rehabilitation diagnosis and current and prior cold morbid medical conditions as above. Risk of complications and plans to mitigate them as above. Description of functional status current status is as above. Prior status as above. Status compared to preadmission: There are no clinically significant differences between the patient's current status and the information described on the preadmission screening document. Treatment plan anticipated: Treatment plan is as described above. Required disciplines including physical therapy, occupational therapy, others as noted above. Intensity of services: 3 hours a day, 6 days a week. Special considerations: There are no specific special or safety considerations that would likely preclude immediate implementation of an intensive rehabilitation program or subsequently influence the plan of care ATTESTATION: Considering all the information above, it is my best judgment that this patient requires intensive rehabilitation therapy as described above and an inpatient hospital environment due to the complexity of nursing, medical, and rehabilitation needs required by the patient. Furthermore, this patient can reasonably be expected to participate in an benefit from an inpatient rehabilitation stay with an interdisciplinary team approach to the delivery of rehabilitation care under the direction and supervision of rehabilitation phys ician. PROGNOSIS:Good ESTIMATED LENGTH OF STAY:21-24 days. PROJECTED DISCHARGE DESTINATION: Home with family support and any durable medical equipment required to increase functional safety and mobility. TIME SPENT COUNSELING AND COORDINATING INITIAL CARE: Greater than 70 minutes. Vital Signs please see EMR Home Medications Scheduled Aspirin (Aspirin EC) 81 Mg Tab, 81 MG PO DAILY, (Reported) Carvedilol (Carvedilol) 25 Mg Tablet, 25 MG PO BID, (Reported) Cholecalciferol (Vitamin D3) (Vitamin D3) 2,000 Unit Tablet, 2,000 UNIT PO BID, (Reported) Clonazepam (Clonazepam) 0.5 Mg Tablet, 0.25 MG PO BID, (Reported) Clonidine (Clonidine) 0.1 Mg Patch.tdwk, 0.1 MG TD 1XWK, (Reported) SUNDAYS - CURRENTLY APPLIED TO RIGHT CHEST Clopidogrel Bisulfate (Clopidogrel) 75 Mg Tab, 75 MG PO DAILY, (Reported) Docusate Sodium (Colace) 100 Mg Capsule, 100 MG PO DAILY, (Reported) Ferrous Sulfate (Ferrous Sulfate) 325 Mg Tablet, 325 MG PO DAILY, (Reported) Hydralazine HCl (Hydralazine HCl) 10 Mg Tablet, 10 MG PO DAILY, (Reported) TAKES AT NOON Insulin Glargine,Hum.rec.anlog (Basaglar Kwikpen U-100) 100 Unit/1 Ml Insuln.pen, 40 UNIT SC QHS, (Reported) Insulin Human Lispro (Novolog) 100 U/Ml Inj, 1 DOSE SC AC, (Reported) PER SLIDING SCALE, 20-25 UNITS Isosorbide Mononitrate (Isosorbide Mononitrate ER) 30 Mg Tab.er.24h, 30 MG PO QHS, (Reported) Levetiracetam (Levetiracetam) 250 Mg Tablet, 250 MG PO BID, (Reported) Magnesium Oxide (Magnesium Oxide) 250 Mg Tablet, 250 MG PO BID, (Reported) Mifepristone (Korlym) 300 Mg Tablet, 300 MG PO BID, (Reported) Potassium Citrate (Potassium Citrate 10MEQ (Urocit-K)) 10 Meq Tablet.er, 10 MEQ PO BID, (Reported) Pravastatin Sodium (Pravastatin Sodium) 40 Mg Tab, 40 MG PO QHS, (Reported) Ropinirole HCl (Ropinirole HCl) 2 Mg Tablet, 2 MG PO BID, (Reported) TAKES AT 0900 & 1500 Ropinirole HCl (Ropinirole HCl) 2 Mg Tablet, 4 MG PO QHS, (Reported) Spironolactone (Spironolactone) 25 Mg Tablet, 50 MG PO BID, (Reported) Tizanidine HCl (Tizanidine HCl) 2 Mg Tablet, 2 MG PO TID, (Reported) Torsemide (Torsemide) 20 Mg Tablet, 20 MG PO DAILY, (Reported) Scheduled PRN Hydralazine HCl (Hydralazine HCl) 10 Mg Tablet, 10 MG PO QHS PRN for BP > 160, (Reported) Allergies Coded Allergies: No Known Allergies (Unverified , 05/27/18) A-FIB/CHADSVASC A-FIB History Current/History of A-Fib/PAF?: No EVELIN ROGERS MD Mar 05, 2019 13:42
[2019-03-05] MEDS ORDERED: GLUCOSE 4 GM CHEW TABLET PO PRN (13:45)
[2019-03-05] MEDS ORDERED: MOM 30ML SUSPENSION UDC PO PRN (13:45)
[2019-03-05] MEDS ORDERED: DEXTROSE 50% 50 ML SYRINGE IV PRN (13:45)
[2019-03-05] MEDS ORDERED: GLUCAGON FOR INJ 1 MG VIAL (J1610) SC PRN (13:45)
[2019-03-05] MEDS ORDERED: ENTER DRUG NAME HERE (PATIENT'S OWN MED) PO SCH (13:45)
[2019-03-05] MEDS: REMEDY PHYTOPLEX Z-GUARD PASTE 113GM TUBE (FROM STOREROOM PRODUCT) TOP SCH ×2 (16:00→23:22)
[2019-03-05 17:24] VITALS: BP 158/86
[2019-03-05] MEDS ORDERED: PILL CUTTER 1 EACH XX PRN (17:30)
[2019-03-05] MEDS: SPIRONOLACTONE 25 MG TAB PO SCH (17:42)
[2019-03-05] MEDS ORDERED: **hydrALAZINE HCL** 25 MG TAB PO PRN (18:00)
--- NOTE | 2019-03-05 18:51 | REPVR ---
PROCEDURE INFORMATION: Exam: US Duplex Lower Extremity Veins Exam date and time: 03/05/2019 6:20 PM Age: 74 years old Clinical indication: Screening exam; R/O dvt TECHNIQUE: Imaging protocol: Real-time duplex ultrasound of the Lower Extremities with 2-D ansari scale, color Doppler flow and spectral waveform analysis with image documentation. Complete exam focused on the bilateral lower extremity veins. COMPARISON: US Duplex, Ext LOWER veins, bilat 10/21/2017 3:36 PM FINDINGS: Right deep veins: Unremarkable. The common femoral, femoral, proximal profunda femoral and popliteal veins are patent without thrombus. Normal Doppler waveforms. Normal compressibility and/or augmentation response. Right superficial veins: Saphenofemoral junction is patent without thrombus. Left deep veins: Unremarkable. The common femoral, femoral, proximal profunda femoral and popliteal veins are patent without thrombus. Normal Doppler waveforms. Normal compressibility and/or augmentation response. Left superficial veins: Saphenofemoral junction is patent without thrombus. Soft tissues: Unremarkable. IMPRESSION: No acute findings. No evidence of deep vein thrombosis. Electronically signed by: Norris Gutierrez On 03/05/2019 18:51:30 PM
[2019-03-05] MEDS: HumaLOG INSULIN (NovoLOG) PER UNIT SC SCH ×2 (18:52→22:57)
[2019-03-05] MEDS: ANALGESIC BALM CRM 120 GM TOP SCH ×2 (18:52→22:27)
[2019-03-05 19:57] VITALS: BP 178/78
[2019-03-05] MEDS: FUROSEMIDE 100 MG/10 ML VIAL (J1940) IV SCH (19:57)
[2019-03-05] MEDS: POTASSIUM CITRATE 1080 MG (10MEQ) TAB PO SCH (19:57)
[2019-03-05] MEDS ORDERED: rOPINIRole 2MG TAB PO SCH (21:00)
[2019-03-05 22:22] VITALS: BP 145/67
[2019-03-05] MEDS: FLUTICASONE PROP 0.05% NASAL SPRAY 16 GM (FLONASE) NARES SCH (22:29)
[2019-03-05] MEDS: SODIUM CHLORIDE NASAL 0.65% SPRAY BTL (OCEAN) SCH (22:29)
[2019-03-05] MEDS: HEPARIN SOD (PORCINE) 5000 UNITS/ML VIAL (J1644 PER 1000UNITS) SC SCH (22:30)
[2019-03-05] MEDS: LEVEMIR (INSULIN DETEMIR) 1 UNITS/0.01ML SC SCH (22:30)
[2019-03-05] MEDS: levETIRAcetam 250MG TABLET (KEPPRA) PO SCH (22:33)
[2019-03-05] MEDS: rOPINIRole 2MG TAB PO SCH (22:33)
[2019-03-05] MEDS: VITAMIN D 1,000 INTERNATIONAL UNITS TABLET PO SCH (22:34)
[2019-03-05] MEDS: MAGNESIUM OXIDE 400 MG TAB (MAG-OX) PO SCH (22:34)
[2019-03-05] MEDS: PRAVASTATIN 20 MG TAB PO SCH (22:34)
[2019-03-05] MEDS: CARVedilol 12.5 MG TAB PO SCH (22:39)
[2019-03-05] MEDS: FERROUS SULFATE 325MG TAB PO SCH (22:39)
[2019-03-05] MEDS: tiZANidine 4 MG TAB PO SCH (22:40)
[2019-03-05] MEDS: ISOSORBIDE MON. (IMDUR) 60 MG XR TAB PO SCH (22:40)
[2019-03-05] MEDS: DOCUSATE SODIUM 100 MG CAP PO SCH (22:42)
[2019-03-05] MEDS: SENNA 8.6 MG TAB (SENOKOT) PO SCH (22:42)
[2019-03-05] MEDS: clonazePAM 0.5 MG TAB PO SCH (22:42)
[2019-03-05] MEDS: ACETAMINOPHEN TAB 650MG DOSE (2X325MG) PO PRN (22:58)
[2019-03-06] MEDS: FUROSEMIDE 100 MG/10 ML VIAL (J1940) IV SCH ×5 (00:48→23:59)
[2019-03-06 00:54] VITALS: BP 168/64
[2019-03-06 06:00] VITALS: BP 141/65
[2019-03-06] MEDS: rOPINIRole 2MG TAB PO SCH ×3 (06:05→21:12)
[2019-03-06 06:50] LABS: BASO % 0.6 % (0.0-1.0); EOS # 0.1 10^3/uL (0.0-0.5); EOS % 1.2 % (0.0-3.0); HEMOGLOBIN 11.1 g/dl (12.0-15.5); LYMPH # 1.5 10^3/uL (1.5-5.0); LYMPH % 29.8 % (24.0-44.0); MEAN CORPUSCULAR HEMOGLOBIN 30.4 pg (27.0-33.0); MEAN CORPUSCULAR HGB CONC 30.8 g/dl (32.0-36.5); MEAN CORPUSCULAR VOLUME 98.6 fl (80.0-96.0); MONO # 0.5 10^3/uL (0.0-0.8); MONO % 9.1 % (0.0-5.0); NEUTROPHILS % 58.7 % (36.0-66.0); PLATELET COUNT, AUTOMATED 188 10^3/uL (150-450); RED BLOOD COUNT 3.65 10^6/uL (4.00-5.40); WHITE BLOOD COUNT 5.1 10^3/uL (4.0-10.0)
[2019-03-06 07:24] LABS: ALBUMIN 3.4 GM/DL (3.2-5.2); BILIRUBIN,TOTAL 0.6 MG/DL (0.2-1.0); CALCIUM LEVEL 9.1 MG/DL (8.8-10.2); CREATININE FOR GFR 1.65 MG/DL (0.55-1.30); GLOMERULAR FILTRATION RATE 32.6 (>39); TOTAL PROTEIN 7.5 GM/DL (6.4-8.2)
[2019-03-06] MEDS ORDERED: POTASSIUM CHLORIDE 10 MEQ SR TABLET PO SCH (09:00)
[2019-03-06] MEDS: KORLYM PO SCH (09:01)
[2019-03-06] MEDS: HEPARIN SOD (PORCINE) 5000 UNITS/ML VIAL (J1644 PER 1000UNITS) SC SCH ×2 (09:01→21:12)
[2019-03-06] MEDS: SPIRONOLACTONE 25 MG TAB PO SCH ×2 (09:02→17:58)
[2019-03-06] MEDS: clonazePAM 0.5 MG TAB PO SCH ×2 (09:02→21:16)
[2019-03-06] MEDS: FERROUS SULFATE 325MG TAB PO SCH ×2 (09:04→21:13)
[2019-03-06] MEDS: HumaLOG INSULIN (NovoLOG) PER UNIT SC SCH ×4 (09:04→21:11)
[2019-03-06] MEDS: POTASSIUM CITRATE 1080 MG (10MEQ) TAB PO SCH ×2 (09:05→17:57)
[2019-03-06] MEDS: VITAMIN D 1,000 INTERNATIONAL UNITS TABLET PO SCH ×2 (09:05→21:13)
[2019-03-06] MEDS: levETIRAcetam 250MG TABLET (KEPPRA) PO SCH ×2 (09:05→21:16)
[2019-03-06] MEDS: MAGNESIUM OXIDE 400 MG TAB (MAG-OX) PO SCH ×2 (09:05→21:22)
[2019-03-06] MEDS: ASPIRIN 81 MG ENTERIC TAB PO SCH (09:05)
[2019-03-06] MEDS: DOCUSATE SODIUM 100 MG CAP PO SCH ×2 (09:05→21:16)
[2019-03-06] MEDS: CARVedilol 12.5 MG TAB PO SCH ×2 (09:06→21:15)
[2019-03-06] MEDS: tiZANidine 4 MG TAB PO SCH ×3 (09:06→21:16)
[2019-03-06] MEDS: CLOPIDOGREL 75 MG TAB PO SCH (09:06)
[2019-03-06] MEDS: PANTOPRAZOLE 40MG TAB (PROTONIX) PO SCH (09:07)
[2019-03-06] MEDS: SODIUM CHLORIDE NASAL 0.65% SPRAY BTL (OCEAN) SCH ×4 (09:07→21:00)
[2019-03-06] MEDS: FLUTICASONE PROP 0.05% NASAL SPRAY 16 GM (FLONASE) NARES SCH ×2 (09:07→21:00)
[2019-03-06] MEDS: ANALGESIC BALM CRM 120 GM TOP SCH ×3 (09:08→21:18)
[2019-03-06] MEDS: REMEDY PHYTOPLEX Z-GUARD PASTE 113GM TUBE (FROM STOREROOM PRODUCT) TOP SCH ×3 (09:08→21:23)
[2019-03-06] MEDS ORDERED: POTASSIUM CHLORIDE 10% LIQ 20 MEQ/15 ML UDC PO ONE (11:00)
--- NOTE | 2019-03-06 12:05 | IPNPDOC ---
Date Seen The patient was seen on 03/06/19. Progress Note SUBJECTIVE: 74-year-old female with past medical history of diabetes mellitus, chronic kidney disease, CHF, CVA, hypertension, bladder cancer status post cystectomy and ileal conduit, Dee syndrome was admitted to the hospital for new lacunar infarct and acute on chronic kidney disease. Patient is now admitted to acute rehabilitation unit, seen in the morning, comfortable, resting in chair, worked with physical therapy, no new complaints at this time. She denies any shortness of breath, chest pain, nausea, vomiting, abdominal pain or diarrhea. She continues to have large volume urine output, lower extremity swelling, unchanged from yesterday. 10 point review of system is negative except for above PHYSICAL EXAMINATION: VITAL SIGNS: Please see below. GENERAL: No distress HEENT: Normocephalic, atraumatic, moist mucous membranes NECK: Supple CARDIOVASCULAR EXAMINATION: S1, S2, no murmurs RESPIRATORY EXAMINATION: Clear to auscultation, no wheezing ABDOMINAL EXAMINATION: Soft, nontender, nondistended, positive bowel sounds, ostomy draining urine EXTREMITIES: Bilateral lower extremity pitting edema SKIN: No rash NEUROLOGICAL EXAMINATION: Alert and oriented 3, no focal deficits PSYCHIATRIC EXAMINATION: Calm and cooperative LABORATORY DATA, IMAGING STUDIES, MICROBIOLOGY: Please see below. DVT prophylaxis ordered?: Yes ASSESSMENT AND PLAN: 74-year-old female with multiple medical comorbidities, was admitted to the hospital for acute on chronic kidney disease and new lacunar infarct now admitted to acute rehabilitation unit. PROBLEMS: 1. Physical deconditioning: Management as per primary team. 2. Acute CVA: Continue aspirin, Plavix and statin, was evaluated by neurology during hospitalization. 3. Acute on chronic kidney disease: Creatinine currently close to baseline, will monitor with further diuresis. Patient remains significantly volume overloaded, will continue Lasix 60 mg every 6 hours for now, potassium supplementation as needed. 4. Hypertension: Continue clonidine, Coreg, Imdur and spironolactone, BP remains elevated, will add hydralazine 25 mg every 8 hours. 5. Diabetes mellitus: Continue Levemir 40 units at bedtime with/oh coverage before meals and at bedtime. DVT prophylaxis: Heparin subcutaneous GI prophylaxis: Protonix VS, I&O, 24H, Fishbone Vital Signs/I&O Vital Signs Date Time Temp Pulse Resp B/P (MAP) Pulse Ox O2 Delivery O2 Flow Rate FiO2 1/30/20 09:06 61 141/65 03/06/19 06:00 97.1 18 93 Room Air I&O- Last 24 Hours up to 6 AM 03/06/19 06:00 Intake Total 1145 ml Output Total 2975 ml Balance -1830 ml Laboratory Data 24H LABS Laboratory Tests 2 03/05/19 17:22: Bedside Glucose (Misc Panel) 207H 03/05/19 20:23: Bedside Glucose (Misc Panel) 287H 03/06/19 06:21: Immature Granulocyte % (Auto) 0.6, Neutrophils (%) (Auto) 58.7, Lymphocytes (%) (Auto) 29.8, Monocytes (%) (Auto) 9.1H, Eosinophils (%) (Auto) 1.2, Basophils (% ) (Auto) 0.6, Neutrophils # (Auto) 3.0, Lymphocytes # (Auto) 1.5, Monocytes # (Auto) 0.5, Eosinophils # (Auto) 0.1, Basophils # (Auto) 0.0, Nucleated Red Blood Cells % (auto) 0.0, Anion Gap 6L, Glomerular Filtration Rate 32.6L, Calcium Level 9.1, Total Bilirubin 0.6, Aspartate Amino Transf (AST/SGOT) 10, Alanine Aminotransferase (ALT/SGPT) 16, Alkaline Phosphatase 43L, Total Protein 7.5, Albumin 3.4, Albumin/Globulin Ratio 0.83L 03/06/19 11:47: Bedside Glucose (Misc Panel) 163H CBC/BMP Laboratory Tests 03/06/19 06:21 DIMPLE KIRBY MD Mar 06, 2019 12:05
[2019-03-06 14:00] VITALS: BP 141/67
[2019-03-06] MEDS: **hydrALAZINE HCL** 25 MG TAB PO SCH ×2 (15:27→21:17)
--- NOTE | 2019-03-06 18:27 | CR ---
DATE OF CONSULTATION: 03/06/2019 CONSULTATION REPORT FOR: Dr. De Los Santos CONSULTING PHYSICIAN: Dr. Grey REASON FOR CONSULTATION: Decompensated diastolic congestive heart failure with chronic kidney disease (CKD), stage III. HISTORY OF PRESENT ILLNESS: Yolanda Ng is well-known to me. She is a 74-year-old female with past medical history of chronic kidney disease (CKD) stage III, hypertension, obesity, history of multiple ischemic strokes, diastolic congestive heart failure, peripheral vascular disease, obesity and multiple other comorbid conditions mentioned below. She was recently admitted to [facility] from 02/28/2019 through 03/05/2019 after presentation for weakness, dysarthria, and found to have acute ischemic right pontine infarct. She was evaluated by neurology and continued on aspirin, Plavix, and statin. The patient was found to be in decompensated diastolic congestive heart failure and with uncontrolled blood pressures. She was aggressively diuresed. She was evaluated by physical therapy and found to be below her functional status and discharged to the rehabilitation unit on 03/05/2019. Nephrology service was consulted for help in the management of her antihypertensives and diuretics. PAST MEDICAL HISTORY: 1. Chronic kidney disease (CKD), stage III. 2. Obesity. 3. History of multiple cerebrovascular accidents (CVAs) and transient ischemic attacks (TIAs) in the past. 4. History of right carotid artery stenosis, status post carotid endarterectomy. 5. [place] syndrome. 6. Longstanding hypertension. 7. Insulin-dependent diabetes. 8. Coronary artery disease, status post stents. 9. Hyperlipidemia. 10. Osteoarthritis. 11. Obstructive sleep apnea, on continuous positive airway pressure (CPAP). 12. Restless leg syndrome. 13. Chronic diastolic congestive heart failure. 14. Pulmonary hypertension. 15. Recurrent hypokalemia. 16. History of cystectomy and ileal conduit with urostomy. 17. History of left adrenal mass. 18. History of bladder carcinoma (CA). PAST SURGICAL HISTORY: 1. Status post radical cystectomy with ileal conduit. 2. Right carotid endarterectomy. 3. Cardiac stents. 4. Bilateral cataract surgeries. ALLERGIES: No known drug allergies. FAMILY HISTORY: No significant family history of end-stage renal disease requiring dialysis. SOCIAL HISTORY: The patient lives at home with her significant other. She is an ex-smoker. She denies any illicit drug use or alcohol abuse. REVIEW OF SYSTEMS: CONSTITUTIONAL: She denies fevers or chills. She reports generalized weakness. EYES: She denies blurry vision or double vision. EARS, NOSE AND THROAT (ENT): Denies dysphagia or odynophagia. CARDIAC: She denies chest pain or palpitations. She reports persistent leg edema. RESPIRATORY: She denies shortness of breath at rest or cough. GASTROINTESTINAL (GI): She denies nausea or vomiting. GENITOURINARY: She has an ileal conduit and urostomy bag. MUSCULOSKELETAL: She reports generalized weakness but no focal weakness. She denies any myalgias or arthralgias. SKIN: She denies rashes or ulcers. HEMATOLOGIC: She denies easy bleeding or bruising. NEUROLOGIC: She has a history of multiple strokes. She denies seizure or syncope. PSYCHIATRIC: She denies depression or anxiety. All other review of systems are negative. PHYSICAL EXAMINATION: Temperature 97.1, pulse 61, respiratory rate 18, blood pressure 141/65, saturating 93% on room air. GENERAL: The patient is seen sitting out of bed to the chair, awake, alert, oriented, interactive, in no apparent distress. Extraocular muscles are intact. Tongue is moist. Neck is supple. Jugular veins cannot be assessed secondary to body habitus. Heart sounds are regular, S1, S2. There is 2+ pitting edema in the legs. Lungs are clear to auscultation bilaterally. No crackle or rale. Abdomen is soft, obese and nontender. There is ileal conduit. There is a urostomy bag draining yellow urine. Extremities show 2+ pitting edema in the legs. SKIN: No rashes or ulcers. NEUROLOGIC: She is oriented times three, interactive, at baseline mentation. PSYCHIATRIC: Appropriate mood and effect. LABORATORY DATA: White count 5.1, hemoglobin 11.1, sodium 141, potassium 3.0, bicarbonate 37, BUN 30, creatinine 1.6. INPATIENT MEDICATIONS: - Tylenol as needed - aspirin 81 mg by mouth daily - Carvedilol 25 mg by mouth twice a day - Klonopin 0.25 mg by mouth twice a day - Catapres patch 0.2 mg - Plavix 75 mg by mouth daily - docusate 100 mg by mouth twice a day - ferrous sulfate 325 mg by mouth twice a day - Lasix 60 mg IV every six hours - heparin 5000 units subcutaneously every 12 hours - hydralazine 25 mg by mouth every eight hours - insulin - isosorbide extended-release 60 mg by mouth at bedtime - magnesium oxide 400 mg by mouth twice a day - Protonix 40 mg by mouth daily - Korlym two tablets by mouth daily - potassium chloride 40 mEq by mouth twice a day - potassium citrate 1080 mg by mouth twice a day - pravastatin 40 mg by mouth at bedtime - ropinirole 2 mg by mouth twice a day and 4 mg by mouth at bedtime - Senokot one tablet by mouth at bedtime - spironolactone 75 mg by mouth twice a day - tizanidine 2 mg by mouth three times a day - vitamin D 2000 units by mouth twice a day PROBLEMS: 1. Decompensated diastolic congestive heart failure. The patient has been net negative one liter daily for the past several days but she remains still grossly volume overloaded. She is receiving Lasix 60 mg IV every sis hours and spironolactone 75 mg twice a day. Yesterday, I gave a dose of metolazone. Her bicarbonate has increased to 37 so we will hold off on further metolazone for now. Additionally, she has also become hypokalemia and her potassium supplementation has been increased. She continues on oral fluid restriction of 1500 mL daily. I feel it is going to take several days to adequately diuresis her. 2. Acute kidney injury (LEONARD) on chronic kidney disease (CKD), stage III. Renal function is still fairly close to baseline. Creatinine has been fluctuating from low 1s to mid 1s. Continue aggressive diuresis with Lasix and spironolactone and fluid restriction. Continue aggressive potassium supplementation. Would hold off on angiotensin-converting enzyme (JAYLON) or angiotensin-receptor elsa (ARB) while she is being diuresed. 3. Hypokalemia. It is due to combination Lasix plus metolazone. She is already on spironolactone 75 mg twice daily and she is receiving potassium citrate 1080 mg twice daily. I increased the potassium chloride to 40 mEq twice daily. She has potassium losses related to Korlym which she takes for Dee syndrome. 4. Metabolic alkalosis. It is secondary to diuretics. She received metolazone yesterday. We will hold off on giving further metolazone today. 5. Hypertension. Blood pressures have been uncontrolled. Clonidine patch and hydralazine were recently added. Her spironolactone can be increased to 100 mg twice a day which is the maximum dose. I would plan to do that tomorrow. 6. Acute cerebrovascular accident (CVA). The patient has a history of multiple prior strokes. She was evaluated by neurology and continues on aspirin, Plavix, statin, and is now on the rehabilitation unit for physical deconditioning.
[2019-03-06] MEDS: LEVEMIR (INSULIN DETEMIR) 1 UNITS/0.01ML SC SCH (21:11)
[2019-03-06] MEDS: ISOSORBIDE MON. (IMDUR) 60 MG XR TAB PO SCH (21:13)
[2019-03-06] MEDS: POTASSIUM CHLORIDE 10 MEQ SR TABLET PO SCH (21:14)
[2019-03-06] MEDS: SENNA 8.6 MG TAB (SENOKOT) PO SCH (21:15)
[2019-03-06] MEDS: PRAVASTATIN 20 MG TAB PO SCH (21:16)
[2019-03-06 22:03] VITALS: BP 190/80
[2019-03-06 23:59] VITALS: BP 180/76
[2019-03-07 02:00] VITALS: BP 168/68
[2019-03-07 06:00] VITALS: BP 170/80
[2019-03-07] MEDS: **hydrALAZINE HCL** 25 MG TAB PO SCH ×3 (06:08→17:39)
[2019-03-07] MEDS: rOPINIRole 2MG TAB PO SCH ×3 (06:08→21:32)
[2019-03-07 06:09] VITALS: BP 182/78
[2019-03-07] MEDS: FUROSEMIDE 100 MG/10 ML VIAL (J1940) IV SCH (06:09)
[2019-03-07] MEDS ORDERED: **hydrALAZINE HCL** 25 MG TAB PO ONE (07:30)
[2019-03-07 07:35] LABS: CALCIUM LEVEL 9.4 MG/DL (8.8-10.2); CREATININE FOR GFR 1.79 MG/DL (0.55-1.30); GLOMERULAR FILTRATION RATE 29.6 (>39); MAGNESIUM LEVEL 2.3 MG/DL (1.8-2.4); POTASSIUM SERUM 3.3 MEQ/L (3.5-5.1)
[2019-03-07] MEDS: CLOPIDOGREL 75 MG TAB PO SCH (07:44)
[2019-03-07] MEDS: HumaLOG INSULIN (NovoLOG) PER UNIT SC SCH ×4 (07:44→21:38)
[2019-03-07] MEDS: DOCUSATE SODIUM 100 MG CAP PO SCH ×2 (07:44→21:35)
[2019-03-07] MEDS: PANTOPRAZOLE 40MG TAB (PROTONIX) PO SCH (07:44)
[2019-03-07] MEDS: HEPARIN SOD (PORCINE) 5000 UNITS/ML VIAL (J1644 PER 1000UNITS) SC SCH ×2 (07:44→21:37)
[2019-03-07] MEDS: MAGNESIUM OXIDE 400 MG TAB (MAG-OX) PO SCH ×2 (07:45→21:33)
[2019-03-07] MEDS: POTASSIUM CHLORIDE 10 MEQ SR TABLET PO SCH ×2 (07:45→21:32)
[2019-03-07] MEDS: ASPIRIN 81 MG ENTERIC TAB PO SCH (07:45)
[2019-03-07] MEDS: levETIRAcetam 250MG TABLET (KEPPRA) PO SCH ×2 (07:45→21:34)
[2019-03-07] MEDS: SPIRONOLACTONE 25 MG TAB PO SCH (07:46)
[2019-03-07] MEDS: CARVedilol 12.5 MG TAB PO SCH ×2 (07:46→21:35)
[2019-03-07] MEDS: FERROUS SULFATE 325MG TAB PO SCH ×2 (07:46→21:36)
[2019-03-07] MEDS: tiZANidine 4 MG TAB PO SCH ×3 (07:47→21:34)
[2019-03-07] MEDS: VITAMIN D 1,000 INTERNATIONAL UNITS TABLET PO SCH ×2 (07:48→21:32)
[2019-03-07] MEDS: clonazePAM 0.5 MG TAB PO SCH ×2 (07:48→21:37)
[2019-03-07] MEDS: KORLYM PO SCH (07:52)
[2019-03-07] MEDS: SODIUM CHLORIDE NASAL 0.65% SPRAY BTL (OCEAN) SCH ×4 (07:52→21:00)
[2019-03-07] MEDS: REMEDY PHYTOPLEX Z-GUARD PASTE 113GM TUBE (FROM STOREROOM PRODUCT) TOP SCH ×3 (07:52→21:00)
[2019-03-07] MEDS: FLUTICASONE PROP 0.05% NASAL SPRAY 16 GM (FLONASE) NARES SCH ×2 (07:52→21:00)
[2019-03-07] MEDS: POTASSIUM CITRATE 1080 MG (10MEQ) TAB PO SCH ×2 (09:18→17:39)
[2019-03-07] MEDS: ANALGESIC BALM CRM 120 GM TOP SCH ×3 (09:18→21:39)
[2019-03-07 14:00] VITALS: BP 149/65
[2019-03-07] MEDS ORDERED: FUROSEMIDE 100 MG/10 ML VIAL (J1940) IV SCH (14:00)
[2019-03-07] MEDS: FUROSEMIDE 40 MG/4 ML VIAL (J1940) IV SCH ×2 (15:32→21:32)
--- NOTE | 2019-03-07 16:46 | IPN ---
DATE: 03/07/2019 SUBJECTIVE: Yolanda is seen and examined in the rehabilitation unit, sitting in a wheelchair. She reports ongoing leg edema and dyspnea on exertion, blood pressures have been uncontrolled, renal function is slightly worse than prior days. She continues in net negative fluid status by about 1 liter daily for the past several days. Temperature 97.1, pulse 63, respiratory rate 18, blood pressure 170/80, saturating 92% on room air. Intake yesterday was 1200, urine output was 2725, net negative 1520. Weight in the bed scale today is 85.2 kg. General: The patient is seen sitting in a wheelchair wheeling herself down the alvarado, awake, alert, oriented, interactive, no apparent distress. Extraocular muscles are intact. Ears, nose and throat are unremarkable. Heart sounds are regular, S1, S2. There is 2+ pitting edema in the legs. Lungs are clear to auscultation but diminished at the bases. No crackle or rale. Abdomen is soft, obese and nontender. There is a urostomy bag draining yellow urine. Extremities show 2+ pitting edema in the legs. She moves all four extremities on command. Skin: No rashes. Neurologic: She is oriented times three, interactive, at baseline mentation. Neck was supple and jugular veins could not be assessed secondary to body habitus. LABORATORY: Sodium 142, potassium 3.3, bicarbonate 39, BUN 34, creatinine 1.7, magnesium 2.3, hemoglobin 11.1. INPATIENT MEDICATIONS: I increased the spironolactone to 100 mg twice daily. She continues on Lasix 60 mg IV every 6 hours. She was started on hydralazine 50 mg by mouth every 6 hours. Remainder of medications are unchanged from prior. PROBLEMS: 1. Acute kidney injury (LEONARD) on chronic kidney disease, stage III. Renal function slightly deteriorating over the past couple of days, creatinine 1.4 to 1.7 in the setting of fluid overload and decompensated heart failure with aggressive diuresis. She is in a daily net negative fluid balance of about negative 1 liter daily. Would keep her off of angiotensin-converting enzyme (JAYLON) or ARB while she is being diuresed. 2. Decompensated diastolic congestive heart failure. She has been net negative 1 liter daily for the past several days, but she remains grossly volume overloaded. She is on oral fluid restriction. Continue Lasix 60 mg IV every 6 hours. Will increase spironolactone to 100 mg twice a day in view of uncontrolled blood pressure and hypokalemia. Hold off on thiazide diuretic because of increasing metabolic alkalosis and hypokalemia. It is going to take several days to adequately diuresis her. 3. Hypokalemia. Spironolactone dose is being increased. She continues on potassium citrate and potassium chloride, both twice daily. She has potassium losses related to the Korlym, which she takes for [place] syndrome. 4. Metabolic alkalosis. It is secondary to diuretics. Hold off on thiazide diuretic (metolazone). She likely has underlying respiratory acidosis as well. 5. Hypertension. Blood pressures have been uncontrolled. Primary team increased hydralazine, and I have increased spironolactone to 100 mg twice a day. Hold off on JAYLON and ARB for now. 6. Acute CVA with a history of prior CVAs. She continues in the rehabilitation unit for physical deconditioning.
[2019-03-07] MEDS: SPIRONOLACTONE 50 MG TAB PO SCH (17:40)
[2019-03-07 21:00] VITALS: BP 154/76
[2019-03-07] MEDS: PRAVASTATIN 20 MG TAB PO SCH (21:33)
[2019-03-07] MEDS: SENNA 8.6 MG TAB (SENOKOT) PO SCH (21:35)
[2019-03-07] MEDS: ISOSORBIDE MON. (IMDUR) 60 MG XR TAB PO SCH (21:36)
[2019-03-07] MEDS: LEVEMIR (INSULIN DETEMIR) 1 UNITS/0.01ML SC SCH (21:37)
[2019-03-07] MEDS: ACETAMINOPHEN TAB 650MG DOSE (2X325MG) PO PRN (21:44)
[2019-03-08] MEDS: **hydrALAZINE HCL** 25 MG TAB PO SCH ×4 (01:01→17:15)
[2019-03-08 06:31] VITALS: BP 158/70
[2019-03-08] MEDS: rOPINIRole 2MG TAB PO SCH ×3 (06:33→21:08)
[2019-03-08] MEDS: FUROSEMIDE 40 MG/4 ML VIAL (J1940) IV SCH ×3 (06:34→21:09)
[2019-03-08 07:20] LABS: BASO % 0.4 % (0.0-1.0); EOS # 0.1 10^3/uL (0.0-0.5); EOS % 1.5 % (0.0-3.0); HEMATOCRIT 33.8 % (36.0-47.0); HEMOGLOBIN 10.8 g/dl (12.0-15.5); LYMPH # 1.6 10^3/uL (1.5-5.0); MEAN CORPUSCULAR HEMOGLOBIN 31.4 pg (27.0-33.0); MEAN CORPUSCULAR VOLUME 98.3 fl (80.0-96.0); MONO # 0.5 10^3/uL (0.0-0.8); MONO % 9.7 % (0.0-5.0); NEUTROPHILS # 2.5 10^3/uL (1.5-8.5); NEUTROPHILS % 53.8 % (36.0-66.0); PLATELET COUNT, AUTOMATED 173 10^3/uL (150-450); RED BLOOD COUNT 3.44 10^6/uL (4.00-5.40); WHITE BLOOD COUNT 4.7 10^3/uL (4.0-10.0)
[2019-03-08 07:42] LABS: CALCIUM LEVEL 8.9 MG/DL (8.8-10.2); CREATININE FOR GFR 1.63 MG/DL (0.55-1.30); MAGNESIUM LEVEL 2.4 MG/DL (1.8-2.4); POTASSIUM SERUM 3.4 MEQ/L (3.5-5.1)
[2019-03-08 08:00] VITALS: BP 180/75
[2019-03-08] MEDS: HEPARIN SOD (PORCINE) 5000 UNITS/ML VIAL (J1644 PER 1000UNITS) SC SCH ×2 (08:11→21:09)
[2019-03-08] MEDS: POTASSIUM CITRATE 1080 MG (10MEQ) TAB PO SCH ×2 (08:12→17:11)
[2019-03-08] MEDS: SPIRONOLACTONE 50 MG TAB PO SCH ×2 (08:12→16:10)
[2019-03-08] MEDS: ASPIRIN 81 MG ENTERIC TAB PO SCH (08:12)
[2019-03-08] MEDS: HumaLOG INSULIN (NovoLOG) PER UNIT SC SCH ×4 (08:12→21:09)
[2019-03-08] MEDS: FERROUS SULFATE 325MG TAB PO SCH ×2 (08:13→21:08)
[2019-03-08] MEDS: clonazePAM 0.5 MG TAB PO SCH ×2 (08:13→21:07)
[2019-03-08] MEDS: PANTOPRAZOLE 40MG TAB (PROTONIX) PO SCH (08:13)
[2019-03-08] MEDS: POTASSIUM CHLORIDE 10 MEQ SR TABLET PO SCH ×2 (08:13→21:06)
[2019-03-08] MEDS: DOCUSATE SODIUM 100 MG CAP PO SCH ×2 (08:13→21:05)
[2019-03-08] MEDS: VITAMIN D 1,000 INTERNATIONAL UNITS TABLET PO SCH ×2 (08:13→21:09)
[2019-03-08] MEDS: levETIRAcetam 250MG TABLET (KEPPRA) PO SCH ×2 (08:13→21:08)
[2019-03-08] MEDS: CARVedilol 12.5 MG TAB PO SCH ×2 (08:14→21:08)
[2019-03-08] MEDS: MAGNESIUM OXIDE 400 MG TAB (MAG-OX) PO SCH ×2 (08:14→21:08)
[2019-03-08] MEDS: tiZANidine 4 MG TAB PO SCH ×3 (08:14→21:06)
[2019-03-08] MEDS: CLOPIDOGREL 75 MG TAB PO SCH (08:14)
[2019-03-08] MEDS: FLUTICASONE PROP 0.05% NASAL SPRAY 16 GM (FLONASE) NARES SCH ×2 (08:23→21:10)
[2019-03-08] MEDS: SODIUM CHLORIDE NASAL 0.65% SPRAY BTL (OCEAN) SCH ×4 (08:23→21:11)
[2019-03-08] MEDS: REMEDY PHYTOPLEX Z-GUARD PASTE 113GM TUBE (FROM STOREROOM PRODUCT) TOP SCH ×3 (09:00→21:11)
[2019-03-08] MEDS: ANALGESIC BALM CRM 120 GM TOP SCH ×3 (09:00→21:10)
[2019-03-08 09:30] VITALS: BP 120/60
[2019-03-08] MEDS: KORLYM PO SCH (09:39)
[2019-03-08 14:00] VITALS: BP 127/80
[2019-03-08 20:00] VITALS: BP 140/82
[2019-03-08] MEDS: SENNA 8.6 MG TAB (SENOKOT) PO SCH (21:07)
[2019-03-08] MEDS: PRAVASTATIN 20 MG TAB PO SCH (21:08)
[2019-03-08] MEDS: ISOSORBIDE MON. (IMDUR) 60 MG XR TAB PO SCH (21:09)
[2019-03-08] MEDS: LEVEMIR (INSULIN DETEMIR) 1 UNITS/0.01ML SC SCH (21:10)
[2019-03-09 06:00] VITALS: BP 142/70
[2019-03-09] MEDS: **hydrALAZINE HCL** 25 MG TAB PO SCH ×4 (06:29→17:24)
[2019-03-09] MEDS: FUROSEMIDE 40 MG/4 ML VIAL (J1940) IV SCH ×2 (06:29→14:12)
[2019-03-09] MEDS: rOPINIRole 2MG TAB PO SCH ×3 (06:30→21:02)
[2019-03-09 07:34] LABS: ALBUMIN 3.3 GM/DL (3.2-5.2); CALCIUM LEVEL 9.2 MG/DL (8.8-10.2); CREATININE FOR GFR 1.75 MG/DL (0.55-1.30); GLOMERULAR FILTRATION RATE 30.4 (>39); MAGNESIUM LEVEL 2.3 MG/DL (1.8-2.4); PHOSPHORUS LEVEL 2.8 MG/DL (2.5-4.9); POTASSIUM SERUM 3.8 MEQ/L (3.5-5.1)
[2019-03-09] MEDS: KORLYM PO SCH (08:23)
[2019-03-09] MEDS: HumaLOG INSULIN (NovoLOG) PER UNIT SC SCH ×4 (08:24→19:55)
[2019-03-09] MEDS: HEPARIN SOD (PORCINE) 5000 UNITS/ML VIAL (J1644 PER 1000UNITS) SC SCH ×2 (08:24→21:02)
[2019-03-09] MEDS: MAGNESIUM OXIDE 400 MG TAB (MAG-OX) PO SCH ×2 (08:24→21:03)
[2019-03-09] MEDS: FERROUS SULFATE 325MG TAB PO SCH ×2 (08:25→21:03)
[2019-03-09] MEDS: clonazePAM 0.5 MG TAB PO SCH ×2 (08:25→21:02)
[2019-03-09] MEDS: VITAMIN D 1,000 INTERNATIONAL UNITS TABLET PO SCH ×2 (08:25→21:02)
[2019-03-09] MEDS: SPIRONOLACTONE 50 MG TAB PO SCH ×2 (08:25→16:08)
[2019-03-09] MEDS: CARVedilol 12.5 MG TAB PO SCH ×2 (08:25→19:55)
[2019-03-09] MEDS: ASPIRIN 81 MG ENTERIC TAB PO SCH (08:26)
[2019-03-09] MEDS: POTASSIUM CITRATE 1080 MG (10MEQ) TAB PO SCH ×2 (08:26→17:24)
[2019-03-09] MEDS: PANTOPRAZOLE 40MG TAB (PROTONIX) PO SCH (08:26)
[2019-03-09] MEDS: tiZANidine 4 MG TAB PO SCH ×3 (08:26→21:03)
[2019-03-09] MEDS: POTASSIUM CHLORIDE 10 MEQ SR TABLET PO SCH ×2 (08:26→21:04)
[2019-03-09] MEDS: CLOPIDOGREL 75 MG TAB PO SCH (08:26)
[2019-03-09] MEDS: levETIRAcetam 250MG TABLET (KEPPRA) PO SCH ×2 (08:26→21:02)
[2019-03-09] MEDS: DOCUSATE SODIUM 100 MG CAP PO SCH ×2 (08:26→21:02)
[2019-03-09] MEDS: FLUTICASONE PROP 0.05% NASAL SPRAY 16 GM (FLONASE) NARES SCH ×2 (08:27→21:00)
[2019-03-09] MEDS: SODIUM CHLORIDE NASAL 0.65% SPRAY BTL (OCEAN) SCH ×4 (08:27→21:00)
[2019-03-09] MEDS: ANALGESIC BALM CRM 120 GM TOP SCH ×3 (08:27→21:07)
[2019-03-09] MEDS: REMEDY PHYTOPLEX Z-GUARD PASTE 113GM TUBE (FROM STOREROOM PRODUCT) TOP SCH ×3 (08:28→21:04)
[2019-03-09 11:47] VITALS: BP 138/70
[2019-03-09 14:00] VITALS: BP 155/70
[2019-03-09] MEDS: ACETAMINOPHEN TAB 650MG DOSE (2X325MG) PO PRN (14:17)
[2019-03-09 17:23] VITALS: BP 160/80
--- NOTE | 2019-03-09 19:13 | IPN ---
DATE: 03/09/2019 Mrs. Ng is seen this morning on her bedside. She is sitting in the recliner chair with her legs elevated. She reports that she has been doing well and making some progress with physical therapy. She denies any nausea, vomiting, dyspnea or chest pain and her leg edema is improving. PHYSICAL EXAMINATION: Temperature 97.7 degrees Fahrenheit, heart rate 56 per minute and respiratory rate 18 per minute. Blood pressure 138/70 mmHg and oxygen saturation 96% on room air. Intake and output records show a negative fluid balance of about 600 mL over last 24 hours. Neck is supple and jugular venous distention (JVD) not visible sitting upright. Heart sounds are regular and lungs clear to auscultation. Abdomen soft and nontender and bowel sounds normal. Extremities without any cyanosis or clubbing. Lower extremity edema has improved significantly. Today's labs show sodium 141, potassium 3.8, CO2 37, BUN 34 and creatinine 1.75. Glucose 162 and calcium 9.2. PROBLEMS: 1. Acute on chronic congestive heart failure. Volume status has improved significantly and I am going to switch her diuretic to just oral diuretic and stop the intravenous (IV) Lasix today. We will continue to transfer her closely. 2. Acute renal failure superimposed on chronic kidney disease. No significant change in overall kidney function with slight fluctuations related to diuresis. At this point, we will continue to monitor her closely. 3. Hypokalemia. This is a chronic issue related to her medications and her potassium level is improved today, normal range, and she will continue with current potassium supplement and potassium-sparing diuretic. 4. Hypertension. Blood pressure control has also improved significantly with diuresis and we will continue to monitor closely and adjust her medications as needed.
[2019-03-09 20:00] VITALS: BP 136/68
[2019-03-09] MEDS: LEVEMIR (INSULIN DETEMIR) 1 UNITS/0.01ML SC SCH (21:03)
[2019-03-09] MEDS: ISOSORBIDE MON. (IMDUR) 60 MG XR TAB PO SCH (21:03)
[2019-03-09] MEDS: SENNA 8.6 MG TAB (SENOKOT) PO SCH (21:03)
[2019-03-09] MEDS: PRAVASTATIN 20 MG TAB PO SCH (21:04)
--- NOTE | 2019-03-09 21:52 | IPN ---
DATE: 03/08/2019 Mrs. Ng is seen this morning on her bedside on acute rehabilitation floor. She is sitting in the chair at the time of my visit. She reports that she is able to walk with the help of a walker and has started to do her physical therapy. Her speech is still somewhat slurred, but she was able to communicate. She denies any dyspnea or chest pain and lower extremity edema is improving. Patient denies any nausea, vomiting, fever or chills. PHYSICAL EXAMINATION: Temperature 97.3 degrees Fahrenheit, heart rate 60 per minute and respiratory rate 18 per minute. Blood pressure 158/70 mmHg and oxygen saturation 96% on room air. Head is atraumatic. Neck supple and jugular venous distention (JVD) not abnormally elevated sitting upright. Heart sounds are regular and lungs clear. Abdomen soft and nontender and bowel sounds are normal. Extremities with no cyanosis or clubbing. Lower extremity edema is still 2+ limited to below the knees. She has no edema on her upper extremities. Neurologically, she is awake and able to answer questions, with some slightly slurred speech. She is able to move all her limbs. Today's labs show a WBC count 4.7, hemoglobin 10, hematocrit 33.8. Sodium 143, potassium 3.4, CO2 37, BUN 33 and creatinine 1.63. PROBLEMS: 1. Acute kidney injury superimposed on chronic kidney disease. Slight improvement in kidney function over the last 24 hours. She has good urine output. 2. Hypervolemia. She did have significant peripheral edema and is diuresing very well. Her weight is down by 1.2 kg since yesterday. We will continue with current diuretic regimen for the next 24 hours. 3. Hypokalemia. She is receiving potassium supplement along with her diuretics and potassium level is gradually improving. I have advised the nursing staff to give her orange juice instead of cranberry juice. Electrolytes will be checked again tomorrow morning. 4. Hypertension. Blood pressure is improving and we will continue to adjust her antihypertensives as needed. MTDD
[2019-03-10] MEDS: rOPINIRole 2MG TAB PO SCH ×3 (05:55→20:36)
[2019-03-10 06:00] VITALS: BP 136/60
[2019-03-10] MEDS: **hydrALAZINE HCL** 25 MG TAB PO SCH ×5 (06:00→23:33)
[2019-03-10 07:26] LABS: MAGNESIUM LEVEL 2.6 MG/DL (1.8-2.4)
[2019-03-10] MEDS: HumaLOG INSULIN (NovoLOG) PER UNIT SC SCH ×4 (07:35→20:40)
[2019-03-10] MEDS: HEPARIN SOD (PORCINE) 5000 UNITS/ML VIAL (J1644 PER 1000UNITS) SC SCH ×2 (07:36→20:35)
[2019-03-10] MEDS: KORLYM PO SCH (07:39)
[2019-03-10] MEDS: SPIRONOLACTONE 50 MG TAB PO SCH ×2 (07:40→17:18)
[2019-03-10] MEDS: DOCUSATE SODIUM 100 MG CAP PO SCH ×2 (07:41→20:38)
[2019-03-10] MEDS: POTASSIUM CITRATE 1080 MG (10MEQ) TAB PO SCH (07:42)
[2019-03-10] MEDS: clonazePAM 0.5 MG TAB PO SCH ×2 (07:42→20:40)
[2019-03-10] MEDS: PANTOPRAZOLE 40MG TAB (PROTONIX) PO SCH (07:42)
[2019-03-10] MEDS: ASPIRIN 81 MG ENTERIC TAB PO SCH (07:43)
[2019-03-10] MEDS: VITAMIN D 1,000 INTERNATIONAL UNITS TABLET PO SCH ×2 (07:43→20:39)
[2019-03-10] MEDS: CARVedilol 12.5 MG TAB PO SCH ×2 (07:44→20:37)
[2019-03-10] MEDS: levETIRAcetam 250MG TABLET (KEPPRA) PO SCH ×2 (07:44→20:38)
[2019-03-10] MEDS: tiZANidine 4 MG TAB PO SCH ×3 (07:44→20:38)
[2019-03-10] MEDS: MAGNESIUM OXIDE 400 MG TAB (MAG-OX) PO SCH ×2 (07:46→20:39)
[2019-03-10] MEDS: FERROUS SULFATE 325MG TAB PO SCH ×2 (07:46→20:38)
[2019-03-10] MEDS: CLOPIDOGREL 75 MG TAB PO SCH (07:46)
[2019-03-10] MEDS: ANALGESIC BALM CRM 120 GM TOP SCH ×3 (07:48→20:41)
[2019-03-10] MEDS: FLUTICASONE PROP 0.05% NASAL SPRAY 16 GM (FLONASE) NARES SCH (07:48)
[2019-03-10] MEDS: SODIUM CHLORIDE NASAL 0.65% SPRAY BTL (OCEAN) SCH ×2 (07:48→12:17)
[2019-03-10] MEDS: REMEDY PHYTOPLEX Z-GUARD PASTE 113GM TUBE (FROM STOREROOM PRODUCT) TOP SCH ×3 (07:48→20:41)
[2019-03-10 07:52] LABS: ALBUMIN 3.2 GM/DL (3.2-5.2); CALCIUM LEVEL 9.1 MG/DL (8.8-10.2); CREATININE FOR GFR 1.84 MG/DL (0.55-1.30); GLOMERULAR FILTRATION RATE 28.7 (>39); PHOSPHORUS LEVEL 2.8 MG/DL (2.5-4.9); POTASSIUM SERUM 4.3 MEQ/L (3.5-5.1)
[2019-03-10] MEDS: POTASSIUM CHLORIDE 10 MEQ SR TABLET PO SCH ×2 (07:53→20:38)
[2019-03-10] MEDS: FUROSEMIDE 20 MG TAB PO SCH ×2 (07:53→17:18)
--- NOTE | 2019-03-10 12:58 | IPNPDOC ---
PM&R Progress Note DATE OF SERVICE: Mar 10, 2019 Food Cart Attendant Progress Note Subjective: Patient reporting she thinks her legs are a little less swollen and that she thinks she is moving pretty well in therapy. She says her leg cramping is well c ontrolled. REVIEW OF SYSTEMS: The following is a completed review of systems and has been reviewed. Review of systems otherwise unremarkable. PAIN: Patient self reports mild leg cramping EYES: No recent vision changes EARS, NOSE, & THROAT: No throat pain, or dysphagia, or rhinorrhea CARDIOVASCULAR: Denies chest pain or palpitations PULMONARY: Denies shortness of breath GASTROINTESTINAL: Denies constipation/diarrhea GENITOURINARY: +ileal conduit MUSCULOSKELETAL: generalized weakness NEUROLOGICAL:no focal tremor, no paresis HEMATOLOGICAL:denies easy bruising SKIN:no rash PSYCHIATRIC: Unremarkable All other review of systems found to be negative. PHYSICAL EXAMINATION: VITAL SIGNS: Please see below. GENERAL: Pleasant and cooperative. No acute distress. HEENT: PERRL. Extraocular movements intact. Clear conjunctiva CARDIOVASCULAR: Regular rate and rhythm. No murmurs, rubs, or gallops LUNGS: Clear to auscultation bilaterally. No wheezes. No rhonchi ABDOMEN: Soft, nontender, +mildly distended. Positive bowel sounds. Normal active bowel sounds ileostomy NEUROLOGICAL: Alert and oriented times three. Cranial nerves II through XII grossly intact. Sensation grossly intact EXTREMITIES: 4\5 strength bilateral upper extremities. 4\5 strength right lower extremity. 4/5 strength in left lower extremity. + bilat LE edema SKIN: sacrum with blanchable erythema GOALS: Mod-I household distances ambulation, functional transfers, dressing, bathing, toileting, medical optimization. 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 Neuro: hx of multiple CVA with new right elpidio infarct, c/u ASA, Plavix, statin for secondary prevention -optimize BP management - Keppra for seizure prophylaxis (added while on inpatient unit) 3. Cardiac: patient with poorly controlled HTN- c/u Coreg, clonidine patch, Imdur, switched to po lasix, c/u hydralazine-overall BPs improving -chronic diastolic CHF, c/u diuretics, fluid restriction, will consult renal to assist 4. Resp: encourage incentive spirometry, monitor for infection -+hx of ALEX, patient encouraged to have bring in CPAP machine 5. Endo: pmh DM with peripheral neuropathy- c/u Levemir and ISS, adjust prn -[place] syndrome with hypokalemia- c/u potassium and Korlym 6. Renal: CKD3, c/u Urocrit, renal consulted to follow fluid management and kidney function-recs appreciated 7. Pain: Tylenol prn and tizanidine 8. Psych: Klonipin BID 9. FVT ppx: heparin and TEds, dopplers negative for DVT 10.GI ppx: protonix 11. Dispo: TBD Allergies Coded Allergies: No Known Allergies (Unverified , 05/27/18) Vital Signs Vital Signs Date Time Temp Pulse Resp B/P (MAP) Pulse Ox O2 Delivery O2 Flow Rate FiO2 03/10/19 12:00 128/62 03/10/19 07:44 60 03/10/19 06:00 97.6 16 94 Room Air Laboratory Data CBC/BMP Laboratory Tests 03/10/19 06:41 Labs 24H Laboratory Tests 2 03/09/19 16:47: Bedside Glucose (Misc Panel) 213H 03/09/19 19:43: Bedside Glucose (Misc Panel) 170H 03/10/19 05:50: Bedside Glucose (Misc Panel) 165H 03/10/19 06:41: Anion Gap 2L, Glomerular Filtration Rate 28.7L, Calcium Level 9.1, Phosphorus Level 2.8, Magnesium Level 2.6H, Albumin 3.2 03/10/19 11:30: Bedside Glucose (Misc Panel) 211H Current Medications Current Medications Current Medications Medications (Trade) Dose Ordered Sig/Eric Route PRN Reason Start Time Stop Time Status Last Admin Dose Admin Acetaminophen (Tylenol Tab) 650 mg Q4HP PRN PO fever/MILD PAIN (PS 1-4) 03/05/19 13:45 03/09/19 14:17 Aspirin (Ecotrin) 81 mg DAILY PO 03/06/19 09:00 03/10/19 07:43 Carvedilol (COReg) 25 mg BID PO 03/05/19 21:00 03/10/19 07:44 Clonazepam (KlonoPIN) 0.25 mg BID PO 03/05/19 21:00 03/10/19 07:42 Clonidine HCl (Mwscwijn-Ddb-7) 1 ea Tu@09 [facility] 03/11/19 09:00 Clopidogrel Bisulfate (PLAVix) 75 mg DAILY PO 03/06/19 09:00 03/10/19 07:46 Dextrose (Dextrose 50%) 25 ml ASDIRECTED PRN IV SEE LABEL COMMENTS 03/05/19 13:45 Docusate Sodium (Colace) 100 mg BID PO 03/05/19 21:00 03/10/19 07:41 Ferrous Sulfate (Ferrous Sulfate) 325 mg BID PO 03/05/19 21:00 03/10/19 07:46 Fluticasone Propionate (Flonase 0.05% Nasal [place]) 1 SPRAY IN EACH NOSTRIL BID NARES 03/05/19 21:00 03/08/19 21:10 Furosemide (LASIX injection) 40 mg Q8H IV 03/07/19 14:00 03/07/19 12:09 DC Furosemide (LASIX injection) 40 mg Q8H IV 03/07/19 14:00 03/09/19 16:58 DC 03/09/19 14:12 Furosemide (LASIX injection) 60 mg Q6H IV 03/05/19 18:00 03/07/19 11:22 DC 03/07/19 06:09 Furosemide (Lasix) 60 mg BID@09,17 PO 03/10/19 09:00 03/10/19 07:53 Glucagon (Glucagon) 1 mg ASDIRECTED PRN SC SEE LABEL COMMENTS 03/05/19 13:45 Glucose (Glucose) 16 GM ASDIRECTED PRN PO SEE LABEL COMMENTS 03/05/19 13:45 Heparin Sodium (Porcine) (Heparin) 5,000 units Q12H SC 03/05/19 21:00 03/10/19 07:36 Hydralazine HCl (Apresoline) 25 mg Q6H PRN PO see below 03/05/19 18:00 03/06/19 11:27 DC 03/06/19 02:29 Hydralazine HCl (Apresoline) 25 mg Q8H PO 03/06/19 14:00 03/07/19 07:21 DC 03/07/19 06:08 Hydralazine HCl (Apresoline) 50 mg Q6H PO 03/07/19 12:00 03/09/19 17:24 Insulin Detemir (Levemir Insulin) 40 units QHS SC 03/05/19 21:00 03/09/19 21:03 Insulin Human Lispro (HumaLOG INSULIN) SEE PROTOCOL TABLE AC SC 03/05/19 17:30 03/10/19 12:17 Insulin Human Lispro (HumaLOG INSULIN) SEE PROTOCOL TABLE QHS SC 03/05/19 21:00 03/08/19 21:09 Isosorbide Mononitrate (Imdur) 60 mg QHS PO 03/05/19 21:00 03/09/19 21:03 Levetiracetam (Keppra) 250 mg BID PO 03/05/19 21:00 03/10/19 07:44 Magnesium Hydroxide (Milk Of Magnesia) 30 ml DAILYPRN PRN PO CONSTIPATION 03/05/19 13:45 Magnesium Oxide (Mag-Ox) 400 mg BID PO 03/05/19 21:00 03/10/19 07:46 Menthol/Methyl Salicylate (Bengay Cream) apply to bilat lower ... TID TOP 03/05/19 16:00 03/09/19 21:07 Miscellaneous (Unresolved Patient Own Med Order) SEE LABEL COMMENTS DAILY XX 03/05/19 09:00 03/05/19 18:27 DC Pantoprazole Sodium (Protonix) 40 mg DAILY PO 03/06/19 09:00 03/10/19 07:42 Patient Own Medication (Patient'S Own Med) 600MG = 2 TABS DAILY PO 03/06/19 09:00 03/10/19 07:39 Patient Own Medication (Patient'S Own Med) Korlym 600mg da... ASDIRECTED PO 03/05/19 13:45 UNV Potassium Chloride (Micro-K Extencaps) 40 meq BID PO 03/06/19 21:00 03/10/19 07:53 Potassium Chloride (Micro-K Extencaps) 40 meq DAILY PO 03/06/19 09:00 03/06/19 10:17 DC 03/06/19 09:07 Potassium Citrate (Urocit-K) 1,080 mg BID@18 PO 03/05/19 18:00 03/07/19 08:03 DC 03/06/19 17:57 Potassium Citrate (Urocit-K) 1,080 mg BID@08,18 PO 03/07/19 08:00 03/10/19 12:35 DC 03/10/19 07:42 Pravastatin Sodium (Pravachol) 40 mg QHS PO 03/05/19 21:00 03/09/19 21:04 Ropinirole HCl (Requip) 2 mg BID@0600,1400 PO 03/06/19 06:00 03/10/19 05:55 Ropinirole HCl (Requip) 4 mg QHS PO 03/05/19 21:00 03/05/19 14:58 DC Ropinirole HCl (Requip) 4 mg QHS@2200 PO 03/05/19 22:00 03/09/19 21:02 Senna (Senokot) 1 tab QHS PO 03/05/19 21:00 03/09/19 21:03 Sodium Chloride ([place] Nasal [place]) 2 SPRAYS EACH NOSTRIL QID NA 03/05/19 21:00 03/08/19 21:11 Spironolactone (Aldactone) 75 mg BID@,17 PO 03/05/19 17:00 03/07/19 12:53 DC 03/07/19 07:46 Spironolactone (Aldactone) 100 mg BID@09,17 PO 03/07/19 17:00 03/10/19 07:40 Tizanidine HCl (Zanaflex) 2 mg TID PO 03/05/19 21:00 03/10/19 07:44 Vitamin D (Vitamin D) 2,000 units BID PO 03/05/19 21:00 03/10/19 07:43 EVELIN ROGERS MD Mar 10, 2019 12:58
--- NOTE | 2019-03-10 13:01 | IPN ---
DATE OF VISIT: 03/10/2019 Mrs. Ng is seen this morning on her bedside. She is sitting in the chair and reports feeling well. She denies any dyspnea or chest pain and her leg edema is improving. She has no nausea or vomiting. PHYSICAL EXAMINATION: Temperature 97.6 degrees Fahrenheit, heart rate 60 per minute and respiratory rate 16 per minute. Blood pressure 150/62 mmHg and oxygen saturation 94% on room air. Intake and output records from yesterday showed total intake 2020 and output was 2950 mL. Head is atraumatic. Neck is supple and without JVD or thyroid enlargement. Heart sounds are regular and lungs sound clear to auscultation. Abdomen soft and nontender and bowel sounds are normal. Extremities without any cyanosis or clubbing. Lower extremity edema is 1+ and limited to mid calf area. Today's labs show sodium 139, potassium 4.3, chloride 102, CO2 35, BUN 37 and creatinine 1.84. Glucose 147 and calcium 9.1. Magnesium level is 2.6. PROBLEMS: 1. Acute kidney injury superimposed on chronic kidney disease. Slight increase in BUN and creatinine is noted which reflects diuresis. Her intravenous Lasix has been stopped and we will recheck her renal function tomorrow. 2. Congestive heart failure, acute on chronic. She has diastolic congestive heart failure. Her volume status was decompensated and she has been diuresed significantly. Intravenous Lasix was stopped yesterday and now she is on oral Lasix. We will continue to monitor closely as she still has some leg edema. 3. Hypokalemia. Her potassium level has also improved and I am concerned about risk for hyperkalemia now that intravenous Lasix has been stopped. I will cut down her potassium citrate and continue with potassium chloride alone now. She has also developed mild metabolic alkalosis related to diuresis and potassium citrate use. 4. Hypertension. Blood pressure seems well controlled on current medications. MTDD
[2019-03-10 14:00] VITALS: BP 128/58
[2019-03-10 20:00] VITALS: BP 168/80
[2019-03-10] MEDS: LEVEMIR (INSULIN DETEMIR) 1 UNITS/0.01ML SC SCH (20:35)
[2019-03-10] MEDS: PRAVASTATIN 20 MG TAB PO SCH (20:36)
[2019-03-10] MEDS: SENNA 8.6 MG TAB (SENOKOT) PO SCH (20:36)
[2019-03-10] MEDS: ISOSORBIDE MON. (IMDUR) 60 MG XR TAB PO SCH (20:40)
[2019-03-10] MEDS: ACETAMINOPHEN TAB 650MG DOSE (2X325MG) PO PRN (21:54)
[2019-03-11] MEDS: rOPINIRole 2MG TAB PO SCH ×3 (05:29→21:22)
[2019-03-11] MEDS: **hydrALAZINE HCL** 25 MG TAB PO SCH ×4 (05:30→23:40)
[2019-03-11 06:00] VITALS: BP 142/68
[2019-03-11 07:25] LABS: MAGNESIUM LEVEL 2.6 MG/DL (1.8-2.4)
[2019-03-11] MEDS: HumaLOG INSULIN (NovoLOG) PER UNIT SC SCH ×4 (08:05→21:18)
[2019-03-11] MEDS: VITAMIN D 1,000 INTERNATIONAL UNITS TABLET PO SCH ×2 (08:05→21:21)
[2019-03-11] MEDS: HEPARIN SOD (PORCINE) 5000 UNITS/ML VIAL (J1644 PER 1000UNITS) SC SCH ×2 (08:05→21:18)
[2019-03-11] MEDS: PANTOPRAZOLE 40MG TAB (PROTONIX) PO SCH (08:06)
[2019-03-11] MEDS: DOCUSATE SODIUM 100 MG CAP PO SCH ×2 (08:06→21:21)
[2019-03-11] MEDS: ASPIRIN 81 MG ENTERIC TAB PO SCH (08:06)
[2019-03-11] MEDS: tiZANidine 4 MG TAB PO SCH ×3 (08:06→21:22)
[2019-03-11] MEDS: POTASSIUM CHLORIDE 10 MEQ SR TABLET PO SCH ×2 (08:06→21:19)
[2019-03-11] MEDS: levETIRAcetam 250MG TABLET (KEPPRA) PO SCH ×2 (08:06→21:22)
[2019-03-11] MEDS: MAGNESIUM OXIDE 400 MG TAB (MAG-OX) PO SCH (08:06)
[2019-03-11] MEDS: CLOPIDOGREL 75 MG TAB PO SCH (08:07)
[2019-03-11] MEDS: cloNIDine HCL 0.2 MG/24 HR PATCH TOP SCH (08:07)
[2019-03-11] MEDS: SPIRONOLACTONE 50 MG TAB PO SCH ×2 (08:07→17:27)
[2019-03-11] MEDS: FUROSEMIDE 20 MG TAB PO SCH (08:07)
[2019-03-11] MEDS: clonazePAM 0.5 MG TAB PO SCH ×2 (08:07→21:24)
[2019-03-11] MEDS: CARVedilol 12.5 MG TAB PO SCH ×2 (08:09→21:22)
[2019-03-11] MEDS: FERROUS SULFATE 325MG TAB PO SCH ×2 (08:09→21:21)
[2019-03-11] MEDS: KORLYM PO SCH (08:09)
[2019-03-11] MEDS: REMEDY PHYTOPLEX Z-GUARD PASTE 113GM TUBE (FROM STOREROOM PRODUCT) TOP SCH ×3 (08:10→21:00)
[2019-03-11] MEDS: ANALGESIC BALM CRM 120 GM TOP SCH ×3 (08:10→21:24)
[2019-03-11 10:59] LABS: CALCIUM LEVEL 9.6 MG/DL (8.8-10.2); CREATININE FOR GFR 1.58 MG/DL (0.55-1.30); GLOMERULAR FILTRATION RATE 34.2 (>39); POTASSIUM SERUM 4.3 MEQ/L (3.5-5.1)
--- NOTE | 2019-03-11 12:43 | IPN ---
DATE: 03/11/2019 Ms. Ng is seen this morning on her bedside. She is sitting in the chair and reports that she just came back from the gym after her physical therapy. She denies any nausea, vomiting, dyspnea or chest pain. Her leg edema has improved significantly, but not completely resolved as yet. On physical examination, temperature 96.6 degrees Fahrenheit, heart rate 60 per minute and respiratory rate 18 per minute. Blood pressure 142/69 mmHg and oxygen saturation 96% on room air. Head is atraumatic. Neck is supple and without jugular venous distention (JVD) sitting upright. Heart sounds are regular and lungs sound clear to auscultation. Abdomen: Soft and nontender. Bowel sounds are normal. Extremities have no cyanosis or clubbing. Lower extremity edema is 1+ on the left leg and trace on the right leg. Neurologically, she is awake and at her baseline mentation. Today's labs show sodium 139, potassium 4.3, CO2 35, BUN 33 and creatinine 1.58. Glucose 153, calcium 9.6 and magnesium 2.6. PROBLEMS: 1. Hypervolemia and peripheral edema. She has been on oral 60 mg Lasix twice a day and spironolactone 100 mg twice a day. Her volume status remains decompensated. I am going to increase her Lasix to 80 mg twice a day. 2. Hypertension. Blood pressure control has improved significantly and no changes in antihypertensives are being made. 3. Acute kidney injury superimposed on chronic kidney disease. The patient had a creatinine of 1.84 yesterday which has improved down to 1.58 today. This is about her baseline. No intervention is indicated. 4. Hypermagnesemia. Magnesium level is slightly higher than the goal. Her magnesium supplement is already stopped.
[2019-03-11 14:00] VITALS: BP 148/68
[2019-03-11] MEDS: FUROSEMIDE 40 MG TAB PO SCH (17:27)
[2019-03-11 20:00] VITALS: BP 150/69
[2019-03-11] MEDS: LEVEMIR (INSULIN DETEMIR) 1 UNITS/0.01ML SC SCH (21:18)
[2019-03-11] MEDS: PRAVASTATIN 20 MG TAB PO SCH (21:21)
[2019-03-11] MEDS: SENNA 8.6 MG TAB (SENOKOT) PO SCH (21:21)
[2019-03-11] MEDS: ISOSORBIDE MON. (IMDUR) 60 MG XR TAB PO SCH (21:21)
[2019-03-12] MEDS: ACETAMINOPHEN TAB 650MG DOSE (2X325MG) PO PRN ×2 (01:40→21:25)
[2019-03-12] MEDS: **hydrALAZINE HCL** 25 MG TAB PO SCH ×4 (05:44→23:20)
[2019-03-12] MEDS: rOPINIRole 2MG TAB PO SCH ×3 (05:44→21:16)
[2019-03-12 06:10] VITALS: BP 142/58
[2019-03-12 08:06] LABS: CALCIUM LEVEL 9.3 MG/DL (8.8-10.2); CREATININE FOR GFR 1.74 MG/DL (0.55-1.30); GLOMERULAR FILTRATION RATE 30.6 (>39); POTASSIUM SERUM 4.7 MEQ/L (3.5-5.1)
[2019-03-12] MEDS: DOCUSATE SODIUM 100 MG CAP PO SCH ×2 (08:28→21:15)
[2019-03-12] MEDS: ASPIRIN 81 MG ENTERIC TAB PO SCH (08:28)
[2019-03-12] MEDS: FERROUS SULFATE 325MG TAB PO SCH ×2 (08:28→21:16)
[2019-03-12] MEDS: POTASSIUM CHLORIDE 10 MEQ SR TABLET PO SCH ×2 (08:28→21:15)
[2019-03-12] MEDS: VITAMIN D 1,000 INTERNATIONAL UNITS TABLET PO SCH ×2 (08:28→21:17)
[2019-03-12] MEDS: CARVedilol 12.5 MG TAB PO SCH ×2 (08:28→21:16)
[2019-03-12] MEDS: CLOPIDOGREL 75 MG TAB PO SCH (08:29)
[2019-03-12] MEDS: FUROSEMIDE 40 MG TAB PO SCH ×2 (08:29→16:21)
[2019-03-12] MEDS: PANTOPRAZOLE 40MG TAB (PROTONIX) PO SCH (08:29)
[2019-03-12] MEDS: HumaLOG INSULIN (NovoLOG) PER UNIT SC SCH ×4 (08:29→21:14)
[2019-03-12] MEDS: levETIRAcetam 250MG TABLET (KEPPRA) PO SCH ×2 (08:29→21:15)
[2019-03-12] MEDS: SPIRONOLACTONE 50 MG TAB PO SCH ×2 (08:30→16:21)
[2019-03-12] MEDS: HEPARIN SOD (PORCINE) 5000 UNITS/ML VIAL (J1644 PER 1000UNITS) SC SCH ×2 (08:30→21:15)
[2019-03-12] MEDS: tiZANidine 4 MG TAB PO SCH ×3 (08:30→21:16)
[2019-03-12] MEDS: clonazePAM 0.5 MG TAB PO SCH ×2 (08:31→21:17)
[2019-03-12] MEDS: KORLYM PO SCH (08:32)
[2019-03-12] MEDS: ANALGESIC BALM CRM 120 GM TOP SCH ×3 (08:32→21:18)
[2019-03-12] MEDS: REMEDY PHYTOPLEX Z-GUARD PASTE 113GM TUBE (FROM STOREROOM PRODUCT) TOP SCH ×3 (08:32→21:00)
[2019-03-12] MEDS: MAGNESIUM OXIDE 400 MG TAB (MAG-OX) PO SCH (09:00)
[2019-03-12 11:57] VITALS: BP 122/62
[2019-03-12 14:00] VITALS: BP 129/63
--- NOTE | 2019-03-12 14:23 | IPNPDOC ---
PM&R Progress Note DATE OF SERVICE: Mar 11, 2019 Fur Liner Progress Note Subjective: Patient seen walking in therapy and encouraged to hop picker her left foot. She thinks she is getting stronger and that her swelling is improving. REVIEW OF SYSTEMS: The following is a completed review of systems and has been reviewed. Review of systems otherwise unremarkable. PAIN: Patient self reports mild leg cramping EYES: No recent vision changes EARS, NOSE, & THROAT: No throat pain, or dysphagia, or rhinorrhea CARDIOVASCULAR: Denies chest pain or palpitations PULMONARY: Denies shortness of breath GASTROINTESTINAL: Denies constipation/diarrhea GENITOURINARY: +ileal conduit MUSCULOSKELETAL: generalized weakness NEUROLOGICAL:no focal tremor, no paresis HEMATOLOGICAL:denies easy bruising SKIN:no rash PSYCHIATRIC: Unremarkable All other review of systems found to be negative. PHYSICAL EXAMINATION: VITAL SIGNS: Please see below. GENERAL: Pleasant and cooperative. No acute distress. HEENT: PERRL. Extraocular movements intact. Clear conjunctiva CARDIOVASCULAR: Regular rate and rhythm. No murmurs, rubs, or gallops LUNGS: Clear to auscultation bilaterally. No wheezes. No rhonchi ABDOMEN: Soft, nontender, +mildly distended. Positive bowel sounds. Normal active bowel sounds ileostomy NEUROLOGICAL: Alert and oriented times three. Cranial nerves II through XII grossly intact. Sensation grossly intact EXTREMITIES: 4\5 strength bilateral upper extremities. 4\5 strength right lower extremity. 4/5 strength in left lower extremity. + bilat LE edema (improving) SKIN: sacrum with blanchable erythema GOALS: Mod-I household distances ambulation, functional transfers, dressing, bathing, toileting, medical optimization. 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 Neuro: hx of multiple CVA with new right elpidio infarct, c/u ASA, Plavix, statin for secondary prevention -optimize BP management - Keppra for seizure prophylaxis (added while on inpatient unit) 3. Cardiac: patient with poorly controlled HTN- c/u Coreg, clonidine patch, Imdur, switched to po lasix, c/u hydralazine-overall BPs improving -chronic diastolic CHF, c/u diuretics, fluid restriction, will consult renal to assist 4. Resp: encourage incentive spirometry, monitor for infection -+hx of ALEX, patient encouraged to have bring in CPAP machine 5. Endo: pmh DM with peripheral neuropathy- c/u Levemir and ISS, adjust prn -[place] syndrome with hypokalemia- c/u potassium and Korlym 6. Renal: CKD3, c/u Urocrit, renal consulted to follow fluid management and kidney function-recs appreciated -Mg level 2.6, will change Mg-Ox from BID to daily 7. Pain: Tylenol prn and tizanidine 8. Psych: Klonipin BID 9. FVT ppx: heparin and TEds, dopplers negative for DVT 10.GI ppx: protonix 11. Dispo: TBD Allergies Coded Allergies: No Known Allergies (Unverified , 05/27/18) Vital Signs Vital Signs Date Time Temp Pulse Resp B/P (MAP) Pulse Ox O2 Delivery O2 Flow Rate FiO2 03/12/19 14:00 96.9 52 18 129/63 (85) 97 Room Air Laboratory Data CBC/BMP Laboratory Tests 03/12/19 07:23 Labs 24H Laboratory Tests 2 03/11/19 16:33: Bedside Glucose (Misc Panel) 201H 03/11/19 19:17: Bedside Glucose (Misc Panel) 267H 03/12/19 06:07: Bedside Glucose (Misc Panel) 215H 03/12/19 07:23: Anion Gap 3L, Glomerular Filtration Rate 30.6L, Calcium Level 9.3, Magnesium Level 2.6H 03/12/19 11:41: Bedside Glucose (Misc Panel) 223H Current Medications Current Medications Current Medications Medications (Trade) Dose Ordered Sig/Eric Route PRN Reason Start Time Stop Time Status Last Admin Dose Admin Acetaminophen (Tylenol Tab) 650 mg Q4HP PRN PO fever/MILD PAIN (PS 1-4) 03/05/19 13:45 03/12/19 01:40 Aspirin (Ecotrin) 81 mg DAILY PO 03/06/19 09:00 03/12/19 08:28 Carvedilol (COReg) 25 mg BID PO 03/05/19 21:00 03/11/19 21:22 Clonazepam (KlonoPIN) 0.25 mg BID PO 03/05/19 21:00 03/12/19 08:31 Clonidine HCl (Qtavveci-Pum-1) 1 ea Tu@09 [facility] 03/11/19 09:00 03/11/19 08:07 Clopidogrel Bisulfate (PLAVix) 75 mg DAILY PO 03/06/19 09:00 03/12/19 08:29 Dextrose (Dextrose 50%) 25 ml ASDIRECTED PRN IV SEE LABEL COMMENTS 03/05/19 13:45 Docusate Sodium (Colace) 100 mg BID PO 03/05/19 21:00 03/12/19 08:28 Ferrous Sulfate (Ferrous Sulfate) 325 mg BID PO 03/05/19 21:00 03/12/19 08:28 Fluticasone Propionate (Flonase 0.05% Nasal [place]) 1 SPRAY IN EACH NOSTRIL BID NARES 03/05/19 21:00 03/10/19 12:54 DC 03/08/19 21:10 Furosemide (LASIX injection) 40 mg Q8H IV 03/07/19 14:00 03/07/19 12:09 DC Furosemide (LASIX injection) 40 mg Q8H IV 03/07/19 14:00 03/09/19 16:58 DC 03/09/19 14:12 Furosemide (LASIX injection) 60 mg Q6H IV 03/05/19 18:00 03/07/19 11:22 DC 03/07/19 06:09 Furosemide (Lasix) 60 mg BID@,17 PO 03/10/19 09:00 03/11/19 11:09 DC 03/11/19 08:07 Furosemide (Lasix) 80 mg BID@, PO 03/11/19 17:00 03/12/19 08:29 Glucagon (Glucagon) 1 mg ASDIRECTED PRN SC SEE LABEL COMMENTS 03/05/19 13:45 Glucose (Glucose) 16 GM ASDIRECTED PRN PO SEE LABEL COMMENTS 03/05/19 13:45 Heparin Sodium (Porcine) (Heparin) 5,000 units Q12H SC 03/05/19 21:00 03/12/19 08:30 Hydralazine HCl (Apresoline) 25 mg Q6H PRN PO see below 03/05/19 18:00 03/06/19 11:27 DC 03/06/19 02:29 Hydralazine HCl (Apresoline) 25 mg Q8H PO 03/06/19 14:00 03/07/19 07:21 DC 03/07/19 06:08 Hydralazine HCl (Apresoline) 50 mg Q6H PO 03/07/19 12:00 03/12/19 05:44 Insulin Detemir (Levemir Insulin) 40 units QHS SC 03/05/19 21:00 03/12/19 09:48 DC 03/11/19 21:18 Insulin Detemir (Levemir Insulin) 44 units QHS SC 03/12/19 21:00 Insulin Human Lispro (HumaLOG INSULIN) SEE PROTOCOL TABLE AC SC 03/05/19 17:30 03/12/19 11:58 Insulin Human Lispro (HumaLOG INSULIN) SEE PROTOCOL TABLE QHS SC 03/05/19 21:00 03/11/19 21:18 Isosorbide Mononitrate (Imdur) 60 mg QHS PO 03/05/19 21:00 03/11/19 21:21 Levetiracetam (Keppra) 250 mg BID PO 03/05/19 21:00 03/12/19 08:29 Magnesium Hydroxide (Milk Of Magnesia) 30 ml DAILYPRN PRN PO CONSTIPATION 03/05/19 13:45 Magnesium Oxide (Mag-Ox) 400 mg BID PO 03/05/19 21:00 03/11/19 10:40 DC 03/11/19 08:06 Magnesium Oxide (Mag-Ox) 400 mg DAILY PO 03/12/19 09:00 Menthol/Methyl Salicylate (Bengay Cream) apply to bilat lower ... TID TOP 03/05/19 16:00 03/12/19 08:32 Miscellaneous (Unresolved Patient Own Med Order) SEE LABEL COMMENTS DAILY XX 03/05/19 09:00 03/05/19 18:27 DC Pantoprazole Sodium (Protonix) 40 mg DAILY PO 03/06/19 09:00 03/12/19 08:29 Patient Own Medication (Patient'S Own Med) 600MG = 2 TABS DAILY PO 03/06/19 09:00 03/12/19 08:32 Patient Own Medication (Patient'S Own Med) Korlym 600mg da... ASDIRECTED PO 03/05/19 13:45 UNV Potassium Chloride (Micro-K Extencaps) 40 meq BID PO 03/06/19 21:00 03/12/19 08:28 Potassium Chloride (Micro-K Extencaps) 40 meq DAILY PO 03/06/19 09:00 03/06/19 10:17 DC 03/06/19 09:07 Potassium Citrate (Urocit-K) 1,080 mg BID@08,18 PO 03/05/19 18:00 03/07/19 08:03 DC 03/06/19 17:57 Potassium Citrate (Urocit-K) 1,080 mg BID@08,18 PO 03/07/19 08:00 03/10/19 12:35 DC 03/10/19 07:42 Pravastatin Sodium (Pravachol) 40 mg QHS PO 03/05/19 21:00 03/11/19 21:21 Ropinirole HCl (Requip) 2 mg BID@0600,1400 PO 03/06/19 06:00 03/12/19 13:28 Ropinirole HCl (Requip) 4 mg QHS PO 03/05/19 21:00 03/05/19 14:58 DC Ropinirole HCl (Requip) 4 mg QHS@2200 PO 03/05/19 22:00 03/11/19 21:22 Senna (Senokot) 1 tab QHS PO 03/05/19 21:00 03/11/19 21:21 Sodium Chloride ([place] Nasal [place]) 2 SPRAYS EACH NOSTRIL QID NA 03/05/19 21:00 03/10/19 12:54 DC 03/08/19 21:11 Spironolactone (Aldactone) 75 mg BID@ PO 03/05/19 17:00 03/07/19 12:53 DC 03/07/19 07:46 Spironolactone (Aldactone) 100 mg BID@ PO 03/07/19 17:00 03/12/19 08:30 Tizanidine HCl (Zanaflex) 2 mg TID PO 03/05/19 21:00 03/12/19 08:30 Vitamin D (Vitamin D) 2,000 units BID PO 03/05/19 21:00 03/12/19 08:28 EVELIN ROGERS MD Mar 12, 2019 14:23
--- NOTE | 2019-03-12 14:24 | IPNPDOC ---
PM&R Progress Note DATE OF SERVICE: Mar 12, 2019 Tobacco Sample Puller Progress Note Subjective: Patient seen in her room stating she feels well, denies having pain, and is still feeling less swelling in her legs. REVIEW OF SYSTEMS: The following is a completed review of systems and has been reviewed. Review of systems otherwise unremarkable. PAIN: Patient self reports mild leg cramping EYES: No recent vision changes EARS, NOSE, & THROAT: No throat pain, or dysphagia, or rhinorrhea CARDIOVASCULAR: Denies chest pain or palpitations PULMONARY: Denies shortness of breath GASTROINTESTINAL: Denies constipation/diarrhea GENITOURINARY: +ileal conduit MUSCULOSKELETAL: generalized weakness NEUROLOGICAL:no focal tremor, no paresis HEMATOLOGICAL:denies easy bruising SKIN:no rash PSYCHIATRIC: Unremarkable All other review of systems found to be negative. PHYSICAL EXAMINATION: VITAL SIGNS: Please see below. GENERAL: Pleasant and cooperative. No acute distress. HEENT: PERRL. Extraocular movements intact. Clear conjunctiva CARDIOVASCULAR: Regular rate and rhythm. No murmurs, rubs, or gallops LUNGS: Clear to auscultation bilaterally. No wheezes. No rhonchi ABDOMEN: Soft, nontender, +mildly distended. Positive bowel sounds. Normal active bowel sounds ileostomy NEUROLOGICAL: Alert and oriented times three. Cranial nerves II through XII grossly intact. Sensation grossly intact EXTREMITIES: 4\5 strength bilateral upper extremities. 4\5 strength right lower extremity. 4/5 strength in left lower extremity. + bilat LE edema (improving) SKIN: sacrum with blanchable erythema GOALS: Mod-I household distances ambulation, functional transfers, dressing, bathing, toileting, medical optimization. ASSESSMENT:74-year-old F with past medical history of multiple CVAs and HTN who presents status post new stroke PLAN: 1.Rehab- PT/OT, advance agit and ADl training, maintain rom/stretch/strengthen all 4 limbs, assess for DMEs -[employer] cognition 2. Neuro: hx of multiple CVA with new right elpidio infarct, c/u ASA, Plavix, st atin for secondary prevention -optimize BP management - Keppra for seizure prophylaxis (added while on inpatient unit) 3. Cardiac: patient with poorly controlled HTN- c/u Coreg, clonidine patch, Imdur, switched to po lasix, c/u hydralazine-overall BPs improving -chronic diastolic CHF, c/u diuretics, fluid restriction, will consult renal to assist 4. Resp: encourage incentive spirometry, monitor for infection -+hx of ALEX, patient encouraged to have bring in CPAP machine 5. Endo: pmh DM with peripheral neuropathy- c/u Levemir and ISS, adjust prn -[place] syndrome with hypokalemia- c/u potassium and Korlym 6. Renal: CKD3, c/u Urocrit, renal consulted to follow fluid management and kidney function-recs appreciated -Mg level 2.6 again, holding Mg-Ox 7. Pain: Tylenol prn and tizanidine 8. Psych: Klonipin BID 9. FVT ppx: heparin and TEds, dopplers negative for DVT 10.GI ppx: protonix 11. Dispo: 03-14-19 to home, progressing towards goals Allergies Coded Allergies: No Known Allergies (Unverified , 05/27/18) Vital Signs Vital Signs Date Time Temp Pulse Resp B/P (MAP) Pulse Ox O2 Delivery O2 Flow Rate FiO2 03/12/19 14:00 96.9 52 18 129/63 (85) 97 Room Air Laboratory Data CBC/BMP Laboratory Tests 03/12/19 07:23 Labs 24H Laboratory Tests 2 03/11/19 16:33: Bedside Glucose (Misc Panel) 201H 03/11/19 19:17: Bedside Glucose (Misc Panel) 267H 03/12/19 06:07: Bedside Glucose (Misc Panel) 215H 03/12/19 07:23: Anion Gap 3L, Glomerular Filtration Rate 30.6L, Calcium Level 9.3, Magnesium L evel 2.6H 03/12/19 11:41: Bedside Glucose (Misc Panel) 223H Current Medications Current Medications Current Medications Medications (Trade) Dose Ordered Sig/Eric Route PRN Reason Start Time Stop Time Status Last Admin Dose Admin Acetaminophen (Tylenol Tab) 650 mg Q4HP PRN PO fever/MILD PAIN (PS 1-4) 03/05/19 13:45 03/12/19 01:40 Aspirin (Ecotrin) 81 mg DAILY PO 03/06/19 09:00 03/12/19 08:28 Carvedilol (COReg) 25 mg BID PO 03/05/19 21:00 03/11/19 21:22 Clonazepam (KlonoPIN) 0.25 mg BID PO 03/05/19 21:00 03/12/19 08:31 Clonidine HCl (Yxbmrtjz-Qqh-4) 1 ea Tu@09 [facility] 03/11/19 09:00 03/11/19 08:07 Clopidogrel Bisulfate (PLAVix) 75 mg DAILY PO 03/06/19 09:00 03/12/19 08:29 Dextrose (Dextrose 50%) 25 ml ASDIRECTED PRN IV SEE LABEL COMMENTS 03/05/19 13:45 Docusate Sodium (Colace) 100 mg BID PO 03/05/19 21:00 03/12/19 08:28 Ferrous Sulfate (Ferrous Sulfate) 325 mg BID PO 03/05/19 21:00 03/12/19 08:28 Fluticasone Propionate (Flonase 0.05% Nasal [place]) 1 SPRAY IN EACH NOSTRIL BID NARES 03/05/19 21:00 03/10/19 12:54 DC 03/08/19 21:10 Furosemide (LASIX injection) 40 mg Q8H IV 03/07/19 14:00 03/07/19 12:09 DC Furosemide (LASIX injection) 40 mg Q8H IV 03/07/19 14:00 03/09/19 16:58 DC 03/09/19 14:12 Furosemide (LASIX injection) 60 mg Q6H IV 03/05/19 18:00 03/07/19 11:22 DC 03/07/19 06:09 Furosemide (Lasix) 60 mg BID@,17 PO 03/10/19 09:00 03/11/19 11:09 DC 03/11/19 08:07 Furosemide (Lasix) 80 mg BID@,17 PO 03/11/19 17:00 03/12/19 08:29 Glucagon (Glucagon) 1 mg ASDIRECTED PRN SC SEE LABEL COMMENTS 03/05/19 13:45 Glucose (Glucose) 16 GM ASDIRECTED PRN PO SEE LABEL COMMENTS 03/05/19 13:45 Heparin Sodium (Porcine) (Heparin) 5,000 units Q12H SC 03/05/19 21:00 03/12/19 08:30 Hydralazine HCl (Apresoline) 25 mg Q6H PRN PO see below 03/05/19 18:00 03/06/19 11:27 DC 03/06/19 02:29 Hydralazine HCl (Apresoline) 25 mg Q8H PO 03/06/19 14:00 03/07/19 07:21 DC 03/07/19 06:08 Hydralazine HCl (Apresoline) 50 mg Q6H PO 03/07/19 12:00 03/12/19 05:44 Insulin Detemir (Levemir Insulin) 40 units QHS SC 03/05/19 21:00 03/12/19 09:48 DC 03/11/19 21:18 Insulin Detemir (Levemir Insulin) 44 units QHS SC 03/12/19 21:00 Insulin Human Lispro (HumaLOG INSULIN) SEE PROTOCOL TABLE AC SC 03/05/19 17:30 03/12/19 11:58 Insulin Human Lispro (HumaLOG INSULIN) SEE PROTOCOL TABLE QHS SC 03/05/19 21:00 03/11/19 21:18 Isosorbide Mononitrate (Imdur) 60 mg QHS PO 03/05/19 21:00 03/11/19 21:21 Levetiracetam (Keppra) 250 mg BID PO 03/05/19 21:00 03/12/19 08:29 Magnesium Hydroxide (Milk Of Magnesia) 30 ml DAILYPRN PRN PO CONSTIPATION 03/05/19 13:45 Magnesium Oxide (Mag-Ox) 400 mg BID PO 03/05/19 21:00 03/11/19 10:40 DC 03/11/19 08:06 Magnesium Oxide (Mag-Ox) 400 mg DAILY PO 03/12/19 09:00 Menthol/Methyl Salicylate (Bengay Cream) apply to bilat lower ... TID TOP 03/05/19 16:00 03/12/19 08:32 Miscellaneous (Unresolved Patient Own Med Order) SEE LABEL COMMENTS DAILY XX 03/05/19 09:00 03/05/19 18:27 DC Pantoprazole Sodium (Protonix) 40 mg DAILY PO 03/06/19 09:00 03/12/19 08:29 Patient Own Medication (Patient'S Own Med) 600MG = 2 TABS DAILY PO 03/06/19 09:00 03/12/19 08:32 Patient Own Medication (Patient'S Own Med) Korlym 600mg da... ASDIRECTED PO 03/05/19 13:45 UNV Potassium Chloride (Micro-K Extencaps) 40 meq BID PO 03/06/19 21:00 03/12/19 08:28 Potassium Chloride (Micro-K Extencaps) 40 meq DAILY PO 03/06/19 09:00 03/06/19 10:17 DC 03/06/19 09:07 Potassium Citrate (Urocit-K) 1,080 mg BID@,18 PO 03/05/19 18:00 03/07/19 08:03 DC 03/06/19 17:57 Potassium Citrate (Urocit-K) 1,080 mg BID@,18 PO 03/07/19 08:00 03/10/19 12:35 DC 03/10/19 07:42 Pravastatin Sodium (Pravachol) 40 mg QHS PO 03/05/19 21:00 03/11/19 21:21 Ropinirole HCl (Requip) 2 mg BID@0600,1400 PO 03/06/19 06:00 03/12/19 13:28 Ropinirole HCl (Requip) 4 mg QHS PO 03/05/19 21:00 03/05/19 14:58 DC Ropinirole HCl (Requip) 4 mg QHS@2200 PO 03/05/19 22:00 03/11/19 21:22 Senna (Senokot) 1 tab QHS PO 03/05/19 21:00 03/11/19 21:21 Sodium Chloride ([place] Nasal [place]) 2 SPRAYS EACH NOSTRIL QID NA 03/05/19 21:00 03/10/19 12:54 DC 03/08/19 21:11 Spironolactone (Aldactone) 75 mg BID@ PO 03/05/19 17:00 03/07/19 12:53 DC 03/07/19 07:46 Spironolactone (Aldactone) 100 mg BID@ PO 03/07/19 17:00 03/12/19 08:30 Tizanidine HCl (Zanaflex) 2 mg TID PO 03/05/19 21:00 03/12/19 08:30 Vitamin D (Vitamin D) 2,000 units BID PO 03/05/19 21:00 03/12/19 08:28 EVELIN ROGERS MD Mar 12, 2019 14:24
[2019-03-12 17:26] VITALS: BP 158/78
[2019-03-12 21:00] VITALS: BP 170/70
[2019-03-12] MEDS: LEVEMIR (INSULIN DETEMIR) 1 UNITS/0.01ML SC SCH (21:14)
[2019-03-12] MEDS: ISOSORBIDE MON. (IMDUR) 60 MG XR TAB PO SCH (21:15)
[2019-03-12] MEDS: SENNA 8.6 MG TAB (SENOKOT) PO SCH (21:16)
[2019-03-12] MEDS: PRAVASTATIN 20 MG TAB PO SCH (21:16)
--- NOTE | 2019-03-12 21:54 | IPN ---
DATE: 03/12/2019 Mrs. Ng is seen this morning on her bedside. She is sitting in her chair and reports that she just finished her physical therapy. She is feeling well and denies any dyspnea, chest pain, nausea or vomiting. Her leg edema is gradually improving. She is anticipating going to home over the weekend. PHYSICAL EXAMINATION Temperature is 96.7 degrees Fahrenheit, heart rate 56 per minute and respiratory rate 18 per minute. Blood pressure 142/58 mmHg and oxygen saturation 94% on room air. Head is atraumatic. Neck: Supple and JVD not abnormally elevated. Heart: Sounds are regular and lungs sound clear to auscultation. Abdomen: Soft and nontender and bowel sounds are normal. Extremities: Without any cyanosis or clubbing. Lower extremity edema is about 1+. Neurologically she is at her baseline mentation. LABS: On review of her labs today her sodium is 140, potassium 4.7, CO2 35, BUN 35 and creatinine 1.74. Glucose 185 and calcium 9.3. PROBLEMS: 1. Acute kidney injury superimposed on chronic kidney disease. No significant change in kidney function. She has slight fluctuations but overall her kidney function has been unchanged with creatinine between 1.58 and 1.84. Electrolytes are within normal range. 2. Leg edema and hypervolemia. She has known history of diastolic congestive heart failure and volume status is gradually improving. Her Lasix dose was increased just yesterday to 80 mg twice a day and will continue with the same. She is also receiving spironolactone 100 mg twice a day. 3. Hypokalemia. Potassium level remains stable with current potassium supplement and spironolactone. We will continue to monitor her closely and make adjustments as needed. Her potassium citrate has already been stopped. 4. Hypertension. Blood pressure is reasonable and no changes in antihypertensives being made today.
[2019-03-13] MEDS: ACETAMINOPHEN TAB 650MG DOSE (2X325MG) PO PRN ×2 (01:28→06:31)
[2019-03-13 06:00] VITALS: BP 130/58
[2019-03-13] MEDS: **hydrALAZINE HCL** 25 MG TAB PO SCH (06:00)
[2019-03-13] MEDS: rOPINIRole 2MG TAB PO SCH ×3 (06:30→21:38)
[2019-03-13 06:59] LABS: BASO % 0.7 % (0.0-1.0); EOS # 0.1 10^3/uL (0.0-0.5); EOS % 1.3 % (0.0-3.0); HEMATOCRIT 35.5 % (36.0-47.0); HEMOGLOBIN 11.1 g/dl (12.0-15.5); LYMPH # 1.9 10^3/uL (1.5-5.0); MEAN CORPUSCULAR HEMOGLOBIN 31.3 pg (27.0-33.0); MEAN CORPUSCULAR HGB CONC 31.3 g/dl (32.0-36.5); MONO # 0.6 10^3/uL (0.0-0.8); MONO % 10.5 % (0.0-5.0); NEUTROPHILS # 2.8 10^3/uL (1.5-8.5); NEUTROPHILS % 52.1 % (36.0-66.0); PLATELET COUNT, AUTOMATED 176 10^3/uL (150-450); RED BLOOD COUNT 3.55 10^6/uL (4.00-5.40); WHITE BLOOD COUNT 5.4 10^3/uL (4.0-10.0)
[2019-03-13 07:28] LABS: CALCIUM LEVEL 9.4 MG/DL (8.8-10.2); CREATININE FOR GFR 2.12 MG/DL (0.55-1.30); GLOMERULAR FILTRATION RATE 24.4 (>39); POTASSIUM SERUM 4.6 MEQ/L (3.5-5.1)
[2019-03-13] MEDS: MAGNESIUM OXIDE 400 MG TAB (MAG-OX) PO SCH (07:36)
[2019-03-13] MEDS: KORLYM PO SCH (07:58)
[2019-03-13] MEDS: HumaLOG INSULIN (NovoLOG) PER UNIT SC SCH ×4 (07:59→21:00)
[2019-03-13] MEDS: CLOPIDOGREL 75 MG TAB PO SCH (07:59)
[2019-03-13] MEDS: HEPARIN SOD (PORCINE) 5000 UNITS/ML VIAL (J1644 PER 1000UNITS) SC SCH ×2 (07:59→21:36)
[2019-03-13] MEDS: FERROUS SULFATE 325MG TAB PO SCH ×2 (08:00→21:38)
[2019-03-13] MEDS: PANTOPRAZOLE 40MG TAB (PROTONIX) PO SCH (08:00)
[2019-03-13] MEDS: POTASSIUM CHLORIDE 10 MEQ SR TABLET PO SCH ×2 (08:00→21:38)
[2019-03-13] MEDS: CARVedilol 12.5 MG TAB PO SCH ×2 (08:03→21:00)
[2019-03-13] MEDS: VITAMIN D 1,000 INTERNATIONAL UNITS TABLET PO SCH ×2 (08:04→21:38)
[2019-03-13] MEDS: DOCUSATE SODIUM 100 MG CAP PO SCH ×2 (08:05→21:38)
[2019-03-13] MEDS: SPIRONOLACTONE 50 MG TAB PO SCH ×2 (08:05→16:55)
[2019-03-13] MEDS: tiZANidine 4 MG TAB PO SCH ×3 (08:06→21:37)
[2019-03-13] MEDS: ASPIRIN 81 MG ENTERIC TAB PO SCH (08:06)
[2019-03-13] MEDS: FUROSEMIDE 40 MG TAB PO SCH (08:06)
[2019-03-13] MEDS: levETIRAcetam 250MG TABLET (KEPPRA) PO SCH ×2 (08:07→21:37)
[2019-03-13] MEDS: clonazePAM 0.5 MG TAB PO SCH ×2 (08:07→21:38)
[2019-03-13] MEDS: ANALGESIC BALM CRM 120 GM TOP SCH ×3 (08:07→21:39)
[2019-03-13] MEDS: REMEDY PHYTOPLEX Z-GUARD PASTE 113GM TUBE (FROM STOREROOM PRODUCT) TOP SCH ×3 (08:08→21:00)
--- NOTE | 2019-03-13 11:17 | IPN ---
DATE OF VISIT: 03/13/2019 Mrs. Ng is seen this morning on her bedside. She is concurrently doing physical therapy in her room. She feels that her leg edema has improved significantly and she did not require compression stockings today. She denies any dyspnea, chest pain, nausea or vomiting. On physical exam, temperature 96.4 degrees Fahrenheit, heart rate 54 per minute and respiratory rate 18 per minute. Blood pressure as high as 170/70 mmHg and as low as 113/55 mmHg during last 12 hours. Head is atraumatic. Neck supple and without jugular venous distention (JVD) or thyroid enlargement. Heart sounds regular and lungs clear to auscultation. Abdomen soft, nontender and protuberant. Extremities with minimal lower extremity edema. There is no cyanosis or clubbing. Neurologically, she is awake and at her baseline mentation. Today's labs show WBC count 5.4, hemoglobin 11.1 and hematocrit 35.5. Sodium 139, potassium 4.6, CO2 33, BUN 39 and creatinine 2.12. Glucose 168 and calcium 9.4. Magnesium level is 2.6. PROBLEMS: 1. Congestive heart failure and peripheral edema. Volume status continues to improve. I had increased her Lasix dose to 80 mg twice a day yesterday and she diuresed quite significantly with almost 2 liters negative fluid balance. I am going to cut down her Lasix dose to 60 mg daily now. 2. Acute on chronic kidney disease. There is mild fluctuations in her BUN and creatinine with slight increase noticed today related to negative volume status. Her Lasix dose is being cut down to 60 mg twice a day. 3. Hypermagnesemia. Magnesium level remains elevated and her magnesium oxide supplement is being stopped. 4. Hypokalemia. Patient remains on potassium supplement along with high-dose potassium-sparing diuretic and her potassium level is stable at present. 5. Anemia. Her anemia is mild and stable and does not need any urgent intervention.
[2019-03-13 14:00] VITALS: BP 144/74
[2019-03-13] MEDS ORDERED: traZODone 25MG PER 1/2 TABLET PO PRN (15:45)
[2019-03-13] MEDS: **hydrALAZINE** 50 MG TAB PO SCH ×2 (15:50→21:37)
--- NOTE | 2019-03-13 15:50 | IPNPDOC ---
PM&R Progress Note DATE OF SERVICE: Mar 13, 2019 Extension Division Director Progress Note Subjective: Patient seen in her room stating she did not sleep well last night and had an off day today. She reports her legs feel more "jumpy" than usual. REVIEW OF SYSTEMS: The following is a completed review of systems and has been reviewed. Review of systems otherwise unremarkable. PAIN: Patient self reports mild leg cramping EYES: No recent vision changes EARS, NOSE, & THROAT: No throat pain, or dysphagia, or rhinorrhea CARDIOVASCULAR: Denies chest pain or palpitations PULMONARY: Denies shortness of breath GASTROINTESTINAL: Denies constipation/diarrhea GENITOURINARY: +ileal conduit MUSCULOSKELETAL: generalized weakness NEUROLOGICAL:no focal tremor, no paresis HEMATOLOGICAL:denies easy bruising SKIN:no rash PSYCHIATRIC: Unremarkable All other review of systems found to be negative. PHYSICAL EXAMINATION: VITAL SIGNS: Please see below. GENERAL: Pleasant and cooperative. No acute distress. HEENT: PERRL. Extraocular movements intact. Clear conjunctiva CARDIOVASCULAR: Regular rate and rhythm. No murmurs, rubs, or gallops LUNGS: Clear to auscultation bilaterally. No wheezes. No rhonchi ABDOMEN: Soft, nontender, +mildly distended. Positive bowel sounds. Normal active bowel sounds ileostomy NEUROLOGICAL: Alert and oriented times three. Cranial nerves II through XII grossly intact. Sensation grossly intact EXTREMITIES: 4\\5 strength bilateral upper extremities. 4\\5 strength right lower extremity. 4/5 strength in left lower extremity. + bilat LE edema (improving) SKIN: sacrum with blanchable erythema ASSESSMENT:74-year-old F with past medical history of multiple CVAs and HTN who presents status post new stroke PLAN: 1.Rehab- PT/OT, advance agit and ADl training, maintain rom/stretch/strengthen all 4 limbs, assess for DMEs -[employer] cognition 2. Neuro: hx of multiple CVA with new right elpidio infarct, c/u ASA, Plavix, statin for secondary prevention -optimize BP management - Keppra for seizure prophylaxis (added while on inpatient unit) -On requip for restless leg syndrome, already on high dose, unable to increase further, will trial addition of Gabapentin 100mg qHS to see if this helps 3. Cardiac: patient with poorly controlled HTN- c/u Coreg, clonidine patch, Imdur, switched to po lasix, c/u hydralazine-overall BPs improving -chronic diastolic CHF, c/u diuretics, fluid restriction, will consult renal to assist 4. Resp: encourage incentive spirometry, monitor for infection -+hx of ALEX, patient encouraged to have bring in CPAP machine 5. Endo: pmh DM with peripheral neuropathy- c/u Levemir and ISS, adjust prn -[place] syndrome with hypokalemia- c/u potassium and Korlym 6. Renal: CKD3, c/u Urocrit, renal consulted to follow fluid management and kidney function-recs appreciated -Mg level 2.6 again, holding Mg-Ox 7. Pain: Tylenol prn and tizanidine 8. Psych: Klonipin BID -patient reporting insomnia will start trazodone 25mg qHS prn 9. FVT ppx: heparin and TEds, dopplers negative for DVT 10.GI ppx: protonix 11. Dispo: 03-15-19 to home, progressing towards goals Allergies Coded Allergies: No Known Allergies (Unverified , 05/27/18) Vital Signs Vital Signs Date Time Temp Pulse Resp B/P (MAP) Pulse Ox O2 Delivery O2 Flow Rate FiO2 03/13/19 14:00 96.3 59 18 144/74 (97) 94 Room Air Laboratory Data CBC/BMP Laboratory Tests 03/13/19 06:29 Labs 24H Laboratory Tests 2 03/12/19 16:29: Bedside Glucose (Misc Panel) 215H 03/12/19 20:50: Bedside Glucose (Misc Panel) 304H 03/13/19 06:16: Bedside Glucose (Misc Panel) 175H 03/13/19 06:29: Immature Granulocyte % (Auto) 0.4, Neutrophils (%) (Auto) 52.1, Lymphocytes (%) (Auto) 35.0, Monocytes (%) (Auto) 10.5H, Eosinophils (%) (Auto) 1.3, Basophils (%) (Auto) 0.7, Neutrophils # (Auto) 2.8, Lymphocytes # (Auto) 1.9, Monocytes # (Auto) 0.6, Eosinophils # (Auto) 0.1, Basophils # (Auto) 0.0, Nucleated Red Blood Cells % (auto) 0.0, Anion Gap 4L, Glomerular Filtration Rate 24.4L, Calcium Level 9.4, Magnesium Level 2.6H 03/13/19 11:27: Bedside Glucose (Misc Panel) 192H Current Medications Current Medications Current Medications Medications (Trade) Dose Ordered Sig/Eric Route PRN Reason Start Time Stop Time Status Last Admin Dose Admin Acetaminophen (Tylenol Tab) 650 mg Q4HP PRN PO fever/MILD PAIN (PS 1-4) 03/05/19 13:45 03/13/19 06:31 Aspirin (Ecotrin) 81 mg DAILY PO 03/06/19 09:00 03/13/19 08:06 Carvedilol (COReg) 25 mg BID PO 03/05/19 21:00 03/12/19 21:16 Clonazepam (KlonoPIN) 0.25 mg BID PO 03/05/19 21:00 03/13/19 08:07 Clonidine HCl (Bvnmygzt-Cvc-0) 1 ea Tu@09 [facility] 03/11/19 09:00 03/11/19 08:07 Clopidogrel Bisulfate (PLAVix) 75 mg DAILY PO 03/06/19 09:00 03/13/19 07:59 Dextrose (Dextrose 50%) 25 ml ASDIRECTED PRN IV SEE LABEL COMMENTS 03/05/19 13:45 Docusate Sodium (Colace) 100 mg BID PO 03/05/19 21:00 03/13/19 08:05 Ferrous Sulfate (Ferrous Sulfate) 325 mg BID PO 03/05/19 21:00 03/13/19 08:00 Fluticasone Propionate (Flonase 0.05% Nasal [place]) 1 SPRAY IN EACH NOSTRIL BID NARES 03/05/19 21:00 03/10/19 12:54 DC 03/08/19 21:10 Furosemide (LASIX injection) 40 mg Q8H IV 03/07/19 14:00 03/07/19 12:09 DC Furosemide (LASIX injection) 40 mg Q8H IV 03/07/19 14:00 03/09/19 16:58 DC 03/09/19 14:12 Furosemide (LASIX injection) 60 mg Q6H IV 03/05/19 18:00 03/07/19 11:22 DC 03/07/19 06:09 Furosemide (Lasix) 60 mg BID@09,17 PO 03/10/19 09:00 03/11/19 11:09 DC 03/11/19 08:07 Furosemide (Lasix) 60 mg BID@09,17 PO 03/13/19 17:00 Furosemide (Lasix) 80 mg BID@09,17 PO 03/11/19 17:00 03/13/19 09:47 DC 03/13/19 08:06 Glucagon (Glucagon) 1 mg ASDIRECTED PRN SC SEE LABEL COMMENTS 03/05/19 13:45 Glucose (Glucose) 16 GM ASDIRECTED PRN PO SEE LABEL COMMENTS 03/05/19 13:45 Heparin Sodium (Porcine) (Heparin) 5,000 units Q12H SC 03/05/19 21:00 03/13/19 07:59 Hydralazine HCl (Apresoline) 25 mg Q6H PRN PO see below 03/05/19 18:00 03/06/19 11:27 DC 03/06/19 02:29 Hydralazine HCl (Apresoline) 25 mg Q8H PO 03/06/19 14:00 03/07/19 07:21 DC 03/07/19 06:08 Hydralazine HCl (Apresoline) 50 mg Q6H PO 03/07/19 12:00 03/13/19 09:46 DC 03/12/19 23:20 Hydralazine HCl (Apresoline) 50 mg TID PO 03/13/19 16:00 Insulin Detemir (Levemir Insulin) 40 units QHS SC 03/05/19 21:00 03/12/19 09:48 DC 03/11/19 21:18 Insulin Detemir (Levemir Insulin) 44 units QHS SC 03/12/19 21:00 03/12/19 21:14 Insulin Human Lispro (HumaLOG INSULIN) SEE PROTOCOL TABLE AC SC 03/05/19 17:30 03/13/19 11:42 Insulin Human Lispro (HumaLOG INSULIN) SEE PROTOCOL TABLE QHS SC 03/05/19 21:00 03/12/19 21:14 Isosorbide Mononitrate (Imdur) 60 mg QHS PO 03/05/19 21:00 03/12/19 21:15 Levetiracetam (Keppra) 250 mg BID PO 03/05/19 21:00 03/13/19 08:07 Magnesium Hydroxide (Milk Of Magnesia) 30 ml DAILYPRN PRN PO CONSTIPATION 03/05/19 13:45 Magnesium Oxide (Mag-Ox) 400 mg BID PO 03/05/19 21:00 03/11/19 10:40 DC 03/11/19 08:06 Magnesium Oxide (Mag-Ox) 400 mg DAILY PO 03/12/19 09:00 03/13/19 09:46 DC Menthol/Methyl Salicylate (Beng[place] Cream) apply to bilat lower ... TID TOP 03/05/19 16:00 03/13/19 08:07 Miscellaneous (Unresolved Patient Own Med Order) SEE LABEL COMMENTS DAILY XX 03/05/19 09:00 03/05/19 18:27 DC Pantoprazole Sodium (Protonix) 40 mg DAILY PO 03/06/19 09:00 03/13/19 08:00 Patient Own Medication (Patient'S Own Med) 600MG = 2 TABS DAILY PO 03/06/19 09:00 03/13/19 07:58 Patient Own Medication (Patient'S Own Med) Korlym 600mg da... ASDIRECTED PO 03/05/19 13:45 UNV Potassium Chloride (Micro-K Extencaps) 40 meq BID PO 03/06/19 21:00 03/13/19 08:00 Potassium Chloride (Micro-K Extencaps) 40 meq DAILY PO 03/06/19 09:00 03/06/19 10:17 DC 03/06/19 09:07 Potassium Citrate (Urocit-K) 1,080 mg BID@08,18 PO 03/05/19 18:00 03/07/19 08:03 DC 03/06/19 17:57 Potassium Citrate (Urocit-K) 1,080 mg BID@08,18 PO 03/07/19 08:00 03/10/19 12:35 DC 03/10/19 07:42 Pravastatin Sodium (Pravachol) 40 mg QHS PO 03/05/19 21:00 03/12/19 21:16 Ropinirole HCl (Requip) 2 mg BID@0600,1400 PO 03/06/19 06:00 03/13/19 06:30 Ropinirole HCl (Requip) 4 mg QHS PO 03/05/19 21:00 03/05/19 14:58 DC Ropinirole HCl (Requip) 4 mg QHS@2200 PO 03/05/19 22:00 03/12/19 21:16 Senna (Senokot) 1 tab QHS PO 03/05/19 21:00 03/12/19 21:16 Sodium Chloride ([place] Nasal [place]) 2 SPRAYS EACH NOSTRIL QID NA 03/05/19 21:00 03/10/19 12:54 DC 03/08/19 21:11 Spironolactone (Aldactone) 75 mg BID@ PO 03/05/19 17:00 03/07/19 12:53 DC 03/07/19 07:46 Spironolactone (Aldactone) 100 mg BID@, PO 03/07/19 17:00 03/13/19 08:05 Tizanidine HCl (Zanaflex) 2 mg TID PO 03/05/19 21:00 03/13/19 08:06 Vitamin D (Vitamin D) 2,000 units BID PO 03/05/19 21:00 03/13/19 08:04 EVELIN ROGERS MD Mar 13, 2019 15:50
[2019-03-13] MEDS: FUROSEMIDE 20 MG TAB PO SCH (16:56)
[2019-03-13 21:00] VITALS: BP 150/66
[2019-03-13] MEDS ORDERED: GABAPENTIN 100 MG CAP PO SCH (21:00)
[2019-03-13] MEDS: LEVEMIR (INSULIN DETEMIR) 1 UNITS/0.01ML SC SCH (21:37)
[2019-03-13] MEDS: SENNA 8.6 MG TAB (SENOKOT) PO SCH (21:38)
[2019-03-13] MEDS: ISOSORBIDE MON. (IMDUR) 60 MG XR TAB PO SCH (21:38)
[2019-03-13] MEDS: PRAVASTATIN 20 MG TAB PO SCH (21:38)
[2019-03-14] MEDS ORDERED: diphenhydrAMINE 25 MG CAP PO ONE (03:00)
[2019-03-14] MEDS: ACETAMINOPHEN TAB 650MG DOSE (2X325MG) PO PRN (03:10)
[2019-03-14 06:30] VITALS: BP 130/60
[2019-03-14] MEDS: rOPINIRole 2MG TAB PO SCH ×3 (06:51→21:45)
[2019-03-14] MEDS: KORLYM PO SCH (08:18)
[2019-03-14] MEDS: VITAMIN D 1,000 INTERNATIONAL UNITS TABLET PO SCH ×2 (08:19→20:39)
[2019-03-14] MEDS: clonazePAM 0.5 MG TAB PO SCH ×2 (08:19→20:43)
[2019-03-14] MEDS: FUROSEMIDE 20 MG TAB PO SCH ×2 (08:19→16:16)
[2019-03-14] MEDS: HEPARIN SOD (PORCINE) 5000 UNITS/ML VIAL (J1644 PER 1000UNITS) SC SCH ×2 (08:19→20:37)
[2019-03-14] MEDS: SPIRONOLACTONE 50 MG TAB PO SCH ×2 (08:20→16:16)
[2019-03-14] MEDS: **hydrALAZINE** 50 MG TAB PO SCH ×3 (08:20→20:39)
[2019-03-14] MEDS: POTASSIUM CHLORIDE 10 MEQ SR TABLET PO SCH ×2 (08:20→20:40)
[2019-03-14] MEDS: levETIRAcetam 250MG TABLET (KEPPRA) PO SCH ×2 (08:20→20:40)
[2019-03-14] MEDS: CLOPIDOGREL 75 MG TAB PO SCH (08:21)
[2019-03-14] MEDS: DOCUSATE SODIUM 100 MG CAP PO SCH ×2 (08:21→20:41)
[2019-03-14] MEDS: FERROUS SULFATE 325MG TAB PO SCH ×2 (08:21→20:40)
[2019-03-14] MEDS: ASPIRIN 81 MG ENTERIC TAB PO SCH (08:21)
[2019-03-14] MEDS: PANTOPRAZOLE 40MG TAB (PROTONIX) PO SCH (08:21)
[2019-03-14] MEDS: CARVedilol 12.5 MG TAB PO SCH ×2 (08:21→20:39)
[2019-03-14] MEDS: tiZANidine 4 MG TAB PO SCH ×3 (08:22→20:41)
[2019-03-14] MEDS: ANALGESIC BALM CRM 120 GM TOP SCH ×3 (08:22→20:43)
[2019-03-14] MEDS: HumaLOG INSULIN (NovoLOG) PER UNIT SC SCH ×4 (08:23→20:38)
[2019-03-14] MEDS: REMEDY PHYTOPLEX Z-GUARD PASTE 113GM TUBE (FROM STOREROOM PRODUCT) TOP SCH ×3 (08:31→20:43)
[2019-03-14 14:00] VITALS: BP 119/56
--- NOTE | 2019-03-14 16:05 | IPNPDOC ---
PM&R Progress Note DATE OF SERVICE: Mar 14, 2019 [employer] Progress Note Subjective: patient reported receiving Benadryl in the middle of the night for insomnia and has been very fatigued today. She thinks the Gabapentin she took may have helped and is interested in continuing this for her restless leg syndrome, but would li ke to be able to take an extra dose in the middle of the night is she awakens. REVIEW OF SYSTEMS: The following is a completed review of systems and has been reviewed. Review of systems otherwise unremarkable. PAIN: Patient self reports mild leg cramping EYES: No recent vision changes EARS, NOSE, & THROAT: No throat pain, or dysphagia, or rhinorrhea CARDIOVASCULAR: Denies chest pain or palpitations PULMONARY: Denies shortness of breath GASTROINTESTINAL: Denies constipation/diarrhea GENITOURINARY: +ileal conduit MUSCULOSKELETAL: generalized weakness NEUROLOGICAL:no focal tremor, no paresis HEMATOLOGICAL:denies easy bruising SKIN:no rash PSYCHIATRIC: Unremarkable All other review of systems found to be negative. PHYSICAL EXAMINATION: VITAL SIGNS: Please see below. GENERAL: Pleasant and cooperative. No acute distress. HEENT: PERRL. Extraocular movements intact. Clear conjunctiva CARDIOVASCULAR: Regular rate and rhythm. No murmurs, rubs, or gallops LUNGS: Clear to auscultation bilaterally. No wheezes. No rhonchi ABDOMEN: Soft, nontender, +mildly distended. Positive bowel sounds. Normal active bowel sounds ileostomy NEUROLOGICAL: Alert and oriented times three. Cranial nerves II through XII grossly intact. Sensation grossly intact EXTREMITIES: 4\5 strength bilateral upper extremities. 4\5 strength right lower extremity. 4/5 strength in left lower extremity. 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 Neuro: hx of multiple CVA with new right elpidio infarct, c/u ASA, Plavix, statin for secondary prevention -optimize BP management - Keppra for seizure prophylaxis (added while on inpatient unit) -On requip for restless leg syndrome, already on high dose, unable to increase further, will trial addition of Gabapentin 100mg qHS and second between 1-3 am is patient awakened by her legs 3. Cardiac: patient with poorly controlled HTN- c/u Coreg, clonidine patch, Imdur, switched to po lasix, c/u hydralazine-overall BPs improving -chronic diastolic CHF, c/u diuretics, fluid restriction, will consult renal to assist 4. Resp: encourage incentive spirometry, monitor for infection -+hx of ALEX, patient encouraged to have bring in CPAP machine 5. Endo: pmh DM with peripheral neuropathy- c/u Levemir and ISS, adjust prn -Dee syndrome with hypokalemia- c/u potassium and Korlym 6. Renal: CKD3, c/u Urocrit, renal consulted to follow fluid management and kidney function-recs appreciated -Mg level 2.6 again, holding Mg-Ox 7. Pain: Tylenol prn and tizanidine 8. Psych: Klonipin BID -patient reporting insomnia will trial Gabapentin qHS and again between 1-3am for restless leg syndrome 9. DVT ppx: heparin and TEds, Doppler negative for DVT 10.GI ppx: protonix 11. Dispo: 03-15-19 to home, progressing towards goals Allergies Coded Allergies: No Known Allergies (Unverified , 05/27/18) Vital Signs Vital Signs Date Time Temp Pulse Resp B/P (MAP) Pulse Ox O2 Delivery O2 Flow Rate FiO2 03/14/19 14:00 96.0 55 17 119/56 (77) 97 Room Air Laboratory Data Labs 24H Laboratory Tests 2 03/13/19 16:23: Bedside Glucose (Misc Panel) 243H 03/13/19 21:35: Bedside Glucose (Misc Panel) 236H 03/14/19 06:48: Bedside Glucose (Misc Panel) 187H 03/14/19 11:19: Bedside Glucose (Misc Panel) 286H Current Medications Current Medications Current Medications Medications (Trade) Dose Ordered Sig/Eric Route PRN Reason Start Time Stop Time Status Last Admin Dose Admin Acetaminophen (Tylenol Tab) 650 mg Q4HP PRN PO fever/MILD PAIN (PS 1-4) 03/05/19 13:45 03/14/19 03:10 Aspirin (Ecotrin) 81 mg DAILY PO 03/06/19 09:00 03/14/19 08:21 Carvedilol (COReg) 25 mg BID PO 03/05/19 21:00 03/14/19 08:21 Clonazepam (KlonoPIN) 0.25 mg BID PO 03/05/19 21:00 03/14/19 08:19 Clonidine HCl (Usdplihw-Zzc-1) 1 ea Tu@09 [facility] 03/11/19 09:00 03/11/19 08:07 Clopidogrel Bisulfate (PLAVix) 75 mg DAILY PO 03/06/19 09:00 03/14/19 08:21 Dextrose (Dextrose 50%) 25 ml ASDIRECTED PRN IV SEE LABEL COMMENTS 03/05/19 13:45 Docusate Sodium (Colace) 100 mg BID PO 03/05/19 21:00 03/14/19 08:21 Ferrous Sulfate (Ferrous Sulfate) 325 mg BID PO 03/05/19 21:00 03/14/19 08:21 Fluticasone Propionate (Flonase 0.05% Nasal [place]) 1 SPRAY IN EACH NOSTRIL BID NARES 03/05/19 21:00 03/10/19 12:54 DC 03/08/19 21:10 Furosemide (LASIX injection) 40 mg Q8H IV 03/07/19 14:00 03/07/19 12:09 DC Furosemide (LASIX injection) 40 mg Q8H IV 03/07/19 14:00 03/09/19 16:58 DC 03/09/19 14:12 Furosemide (LASIX injection) 60 mg Q6H IV 03/05/19 18:00 03/07/19 11:22 DC 03/07/19 06:09 Furosemide (Lasix) 60 mg BID@,17 PO 03/10/19 09:00 03/11/19 11:09 DC 03/11/19 08:07 Furosemide (Lasix) 60 mg BID@,17 PO 03/13/19 17:00 03/14/19 08:19 Furosemide (Lasix) 80 mg BID@,17 PO 03/11/19 17:00 03/13/19 09:47 DC 03/13/19 08:06 Gabapentin (Neurontin) 100 mg QHS PO 03/13/19 21:00 03/13/19 21:37 Glucagon (Glucagon) 1 mg ASDIRECTED PRN SC SEE LABEL COMMENTS 03/05/19 13:45 Glucose (Glucose) 16 GM ASDIRECTED PRN PO SEE LABEL COMMENTS 03/05/19 13:45 Heparin Sodium (Porcine) (Heparin) 5,000 units Q12H SC 03/05/19 21:00 03/14/19 08:19 Hydralazine HCl (Apresoline) 25 mg Q6H PRN PO see below 03/05/19 18:00 03/06/19 11:27 DC 03/06/19 02:29 Hydralazine HCl (Apresoline) 25 mg Q8H PO 03/06/19 14:00 03/07/19 07:21 DC 03/07/19 06:08 Hydralazine HCl (Apresoline) 50 mg Q6H PO 03/07/19 12:00 03/13/19 09:46 DC 03/12/19 23:20 Hydralazine HCl (Apresoline) 50 mg TID PO 03/13/19 16:00 03/14/19 08:20 Insulin Detemir (Levemir Insulin) 40 units QHS SC 03/05/19 21:00 03/12/19 09:48 DC 03/11/19 21:18 Insulin Detemir (Levemir Insulin) 44 units QHS SC 03/12/19 21:00 03/13/19 21:37 Insulin Human Lispro (HumaLOG INSULIN) SEE PROTOCOL TABLE AC SC 03/05/19 17:30 03/14/19 11:26 Insulin Human Lispro (HumaLOG INSULIN) SEE PROTOCOL TABLE QHS SC 03/05/19 21:00 03/12/19 21:14 Isosorbide Mononitrate (Imdur) 60 mg QHS PO 03/05/19 21:00 03/13/19 21:38 Levetiracetam (Keppra) 250 mg BID PO 03/05/19 21:00 03/14/19 08:20 Magnesium Hydroxide (Milk Of Magnesia) 30 ml DAILYPRN PRN PO CONSTIPATION 03/05/19 13:45 Magnesium Oxide (Mag-Ox) 400 mg BID PO 03/05/19 21:00 03/11/19 10:40 DC 03/11/19 08:06 Magnesium Oxide (Mag-Ox) 400 mg DAILY PO 03/12/19 09:00 03/13/19 09:46 DC Menthol/Methyl Salicylate (Bengay Cream) apply to bilat lower ... TID TOP 03/05/19 16:00 03/14/19 08:22 Miscellaneous (Unresolved Patient Own Med Order) SEE LABEL COMMENTS DAILY XX 03/05/19 09:00 03/05/19 18:27 DC Pantoprazole Sodium (Protonix) 40 mg DAILY PO 03/06/19 09:00 03/14/19 08:21 Patient Own Medication (Patient'S Own Med) 600MG = 2 TABS DAILY PO 03/06/19 09:00 03/14/19 08:18 Patient Own Medication (Patient'S Own Med) Korlym 600mg da... ASDIRECTED PO 03/05/19 13:45 UNV Potassium Chloride (Micro-K Extencaps) 40 meq BID PO 03/06/19 21:00 03/14/19 08:20 Potassium Chloride (Micro-K Extencaps) 40 meq DAILY PO 03/06/19 09:00 03/06/19 10:17 DC 03/06/19 09:07 Potassium Citrate (Urocit-K) 1,080 mg BID@08,18 PO 03/05/19 18:00 03/07/19 08:03 DC 03/06/19 17:57 Potassium Citrate (Urocit-K) 1,080 mg BID@08,18 PO 03/07/19 08:00 03/10/19 12:35 DC 03/10/19 07:42 Pravastatin Sodium (Pravachol) 40 mg QHS PO 03/05/19 21:00 03/13/19 21:38 Ropinirole HCl (Requip) 2 mg BID@0600,1400 PO 03/06/19 06:00 03/14/19 13:38 Ropinirole HCl (Requip) 4 mg QHS PO 03/05/19 21:00 03/05/19 14:58 DC Ropinirole HCl (Requip) 4 mg QHS@2200 PO 03/05/19 22:00 03/13/19 21:38 Senna (Senokot) 1 tab QHS PO 03/05/19 21:00 03/13/19 21:38 Sodium Chloride ([place] Nasal [place]) 2 SPRAYS EACH NOSTRIL QID NA 03/05/19 21:00 03/10/19 12:54 DC 03/08/19 21:11 Spironolactone (Aldactone) 75 mg BID@, PO 03/05/19 17:00 03/07/19 12:53 DC 03/07/19 07:46 Spironolactone (Aldactone) 100 mg BID@, PO 03/07/19 17:00 03/14/19 08:20 Tizanidine HCl (Zanaflex) 2 mg TID PO 03/05/19 21:00 03/14/19 08:22 Trazodone HCl (Desyrel) 25 mg QHSP PRN PO INSOMNIA 03/13/19 15:45 03/13/19 23:15 Vitamin D (Vitamin D) 2,000 units BID PO 03/05/19 21:00 03/14/19 08:19 EVELIN ROGERS MD Mar 14, 2019 16:05
--- NOTE | 2019-03-14 16:26 | IPN ---
DATE: 03/14/2019 Mrs. Ng is seen this morning on her bedside. She is sitting in the chair and feels well. She denies any dyspnea or chest pain and leg edema is improving. PHYSICAL EXAMINATION Temperature 97 degrees Fahrenheit, heart rate 60 per minute and respiratory rate 18 per minute. Blood pressure 130/60 mmHg and oxygen saturation 92% on room air. Head is atraumatic. Neck: Supple and without jugular venous distention (JVD) or thyroid enlargement. Heart: Sounds are regular and lungs clear to auscultation. Abdomen: Soft and nontender and bowel sounds are normal. Extremities: Without any cyanosis or clubbing. Lower extremity edema is trace to 1+. She did not have any new labs done today. PROBLEMS: 1. Uncontrolled hypertension. Blood pressure control has improved significantly and she will continue with current antihypertensive medications. 2. Peripheral edema and diastolic congestive heart failure. Volume status is significantly improved with minimal edema only close to the ankle area. She is on 60 mg Lasix twice a day along with spironolactone 100 mg twice a day which will be continued. She should continue with low-sodium diet and moderate fluid restriction. 3. Acute on chronic kidney disease. Kidney function is relatively stable with slight increase in her creatinine yesterday. Her Lasix dose has been now cut down to 60 mg twice a day. She still has some leg edema so will be to continue with diuretics. Renal profile should be checked again if she stays here for next couple of days. If not then she will be followed up in my office in next week. 4. Anemia. Her anemia has been stable and does not need any urgent intervention at present.
[2019-03-14 20:35] VITALS: BP 136/62
[2019-03-14] MEDS: LEVEMIR (INSULIN DETEMIR) 1 UNITS/0.01ML SC SCH (20:38)
[2019-03-14] MEDS: SENNA 8.6 MG TAB (SENOKOT) PO SCH (20:39)
[2019-03-14] MEDS: ISOSORBIDE MON. (IMDUR) 60 MG XR TAB PO SCH (20:39)
[2019-03-14] MEDS: PRAVASTATIN 20 MG TAB PO SCH (20:40)
[2019-03-14] MEDS: GABAPENTIN 100 MG CAP PO SCH (20:41)
[2019-03-15] MEDS: ACETAMINOPHEN TAB 650MG DOSE (2X325MG) PO PRN ×2 (00:56→14:23)
[2019-03-15] MEDS: GABAPENTIN 100 MG CAP PO SCH ×2 (00:57→20:52)
[2019-03-15 06:00] VITALS: BP 120/58
[2019-03-15] MEDS: rOPINIRole 2MG TAB PO SCH ×3 (06:18→22:05)
[2019-03-15] MEDS: **hydrALAZINE** 50 MG TAB PO SCH ×3 (08:50→20:51)
[2019-03-15] MEDS: REMEDY PHYTOPLEX Z-GUARD PASTE 113GM TUBE (FROM STOREROOM PRODUCT) TOP SCH ×3 (09:00→20:54)
[2019-03-15] MEDS: HEPARIN SOD (PORCINE) 5000 UNITS/ML VIAL (J1644 PER 1000UNITS) SC SCH ×2 (09:00→20:47)
[2019-03-15] MEDS: ANALGESIC BALM CRM 120 GM TOP SCH ×3 (09:00→20:54)
[2019-03-15] MEDS: CLOPIDOGREL 75 MG TAB PO SCH (09:51)
[2019-03-15] MEDS: KORLYM PO SCH (09:51)
[2019-03-15] MEDS: HumaLOG INSULIN (NovoLOG) PER UNIT SC SCH ×4 (09:51→20:48)
[2019-03-15] MEDS: PANTOPRAZOLE 40MG TAB (PROTONIX) PO SCH (09:51)
[2019-03-15] MEDS: levETIRAcetam 250MG TABLET (KEPPRA) PO SCH ×2 (09:51→20:52)
[2019-03-15] MEDS: VITAMIN D 1,000 INTERNATIONAL UNITS TABLET PO SCH ×2 (09:51→20:51)
[2019-03-15] MEDS: CARVedilol 12.5 MG TAB PO SCH ×2 (09:52→20:52)
[2019-03-15] MEDS: FUROSEMIDE 20 MG TAB PO SCH ×2 (09:52→18:10)
[2019-03-15] MEDS: FERROUS SULFATE 325MG TAB PO SCH ×2 (09:52→20:52)
[2019-03-15] MEDS: POTASSIUM CHLORIDE 10 MEQ SR TABLET PO SCH (09:52)
[2019-03-15] MEDS: DOCUSATE SODIUM 100 MG CAP PO SCH ×2 (09:53→20:52)
[2019-03-15] MEDS: SPIRONOLACTONE 50 MG TAB PO SCH ×2 (09:53→18:11)
[2019-03-15] MEDS: ASPIRIN 81 MG ENTERIC TAB PO SCH (09:53)
[2019-03-15] MEDS: tiZANidine 4 MG TAB PO SCH ×3 (09:53→20:52)
[2019-03-15] MEDS: clonazePAM 0.5 MG TAB PO SCH ×2 (09:53→20:53)
[2019-03-15 11:22] LABS: BASO % 0.3 % (0.0-1.0); EOS # 0.1 10^3/uL (0.0-0.5); HEMATOCRIT 37.4 % (36.0-47.0); HEMOGLOBIN 11.4 g/dl (12.0-15.5); LYMPH # 1.6 10^3/uL (1.5-5.0); LYMPH % 26.8 % (24.0-44.0); MEAN CORPUSCULAR HEMOGLOBIN 30.6 pg (27.0-33.0); MEAN CORPUSCULAR HGB CONC 30.5 g/dl (32.0-36.5); MEAN CORPUSCULAR VOLUME 100.5 fl (80.0-96.0); MONO # 0.5 10^3/uL (0.0-0.8); MONO % 8.8 % (0.0-5.0); NEUTROPHILS # 3.8 10^3/uL (1.5-8.5); NEUTROPHILS % 62.6 % (36.0-66.0); PLATELET COUNT, AUTOMATED 182 10^3/uL (150-450); RED BLOOD COUNT 3.72 10^6/uL (4.00-5.40); WHITE BLOOD COUNT 6.1 10^3/uL (4.0-10.0)
[2019-03-15 11:42] LABS: ALBUMIN 3.8 GM/DL (3.2-5.2); CALCIUM LEVEL 9.8 MG/DL (8.8-10.2); CREATININE FOR GFR 2.24 MG/DL (0.55-1.30); GLOMERULAR FILTRATION RATE 22.9 (>39); PHOSPHORUS LEVEL 3.7 MG/DL (2.5-4.9); POTASSIUM SERUM 5.3 MEQ/L (3.5-5.1)
[2019-03-15 14:00] VITALS: BP 112/51
[2019-03-15] MEDS ORDERED: PATIROMER SORBITEX CALCIUM 8.4 GM POWDER PACKET (VELTASSA) PO ONE (17:00)
[2019-03-15 20:25] VITALS: BP 164/66
[2019-03-15] MEDS: LEVEMIR (INSULIN DETEMIR) 1 UNITS/0.01ML SC SCH (20:48)
[2019-03-15] MEDS: ISOSORBIDE MON. (IMDUR) 60 MG XR TAB PO SCH (20:51)
[2019-03-15] MEDS: PRAVASTATIN 20 MG TAB PO SCH (20:51)
[2019-03-15] MEDS: SENNA 8.6 MG TAB (SENOKOT) PO SCH (20:52)
[2019-03-16] MEDS: ACETAMINOPHEN TAB 650MG DOSE (2X325MG) PO PRN ×2 (00:26→22:04)
[2019-03-16] MEDS: GABAPENTIN 100 MG CAP PO SCH ×2 (02:00→21:59)
[2019-03-16] MEDS: rOPINIRole 2MG TAB PO SCH ×3 (05:21→21:58)
[2019-03-16 05:37] VITALS: BP 110/54
[2019-03-16 08:05] LABS: CALCIUM LEVEL 9.3 MG/DL (8.8-10.2); CREATININE FOR GFR 2.54 MG/DL (0.55-1.30); GLOMERULAR FILTRATION RATE 19.8 (>39); POTASSIUM SERUM 5.6 MEQ/L (3.5-5.1)
--- NOTE | 2019-03-16 08:08 | IPN ---
DATE: 03/15/2019 SUBJECTIVE: The patient was seen and examined at the bedside today morning in the rehab unit. The patient is awake and alert. She reports that lower extremity edema is significantly getting better. She was getting ready to start the physical therapy when I saw her in the morning. OBJECTIVE: Vital signs: Temperature is 97.1 degrees Fahrenheit, blood pressure 112/51, pulse is 60, respiratory of 18, saturating 94% on room air. Intake and output: Urine output recorded is 2.2 liters yesterday, 2.8 liters so far today since overnight. Weight on the bed scale is 82.5 kg. PHYSICAL EXAMINATION: General: The patient is awake, alert, oriented times three, sitting up in the wheelchair, no apparent distress. Head and neck exam: Extraocular muscles intact. Pupils equally round and reactive to light. Mucous membranes are moist. Neck is supple. There is no jugular venous distention (JVD). Cardiovascular: S1, S2, regular rate. Trace edema of the bilateral lower extremities. Respiratory: Chest is clear to auscultation bilaterally. Bilateral equal air entry. No rales or rhonchi. Abdomen: Soft, obese, positive bowel sounds. Nontender. Musculoskeletal: No clubbing or cyanosis. Pulses are 2+. 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 Power is 5/5 in all extremities. The patient has a right lower quadrant urostomy. LAB REVIEW: CBC showed a WBC of 6.1, hemoglobin 11.4, platelets are 182. BMP showed sodium 140, potassium 5.3, chloride 102, bicarbonate 33, BUN 48, creatinine is 2.2, it was 2.1 on March 13, 2019, phosphorus 3.7. CURRENT INPATIENT MEDICATIONS: The patient's medications were all reviewed by me. She continues to be on spironolactone 100 mg by mouth twice a day. She was on potassium chloride 40 mEq by mouth twice a day, and I have changed to 40 mEq by mouth daily, and she continues to be on Lasix 60 mg by mouth twice a day. ASSESSMENT/PLAN: 1. Chronic diastolic congestive heart failure. Volume status is significantly better. Continue current dose of Lasix 60 mg by mouth twice a day along with spironolactone 100 mg by mouth twice a day. 2. Hyperkalemia. The patient normally has hypokalemia requiring high dose of spironolactone and potassium. However, since the potassium level is high, I have changed the potassium dose to 40 mEq by mouth daily. 3. Chronic kidney disease, stage III. The patient is getting aggressive diuretics. Her creatinine has been fluctuating at around 2.2, which is higher than her baseline. If renal function does not start improving, then diuretic dose will be decreased.
[2019-03-16] MEDS: KORLYM PO SCH (08:28)
[2019-03-16] MEDS: FUROSEMIDE 40 MG TAB PO SCH ×2 (08:29→17:07)
[2019-03-16] MEDS: HumaLOG INSULIN (NovoLOG) PER UNIT SC SCH ×4 (08:29→22:03)
[2019-03-16] MEDS: VITAMIN D 1,000 INTERNATIONAL UNITS TABLET PO SCH ×2 (08:29→21:59)
[2019-03-16] MEDS: DOCUSATE SODIUM 100 MG CAP PO SCH ×2 (08:29→21:58)
[2019-03-16] MEDS: SPIRONOLACTONE 50 MG TAB PO SCH ×2 (08:30→17:08)
[2019-03-16] MEDS: ASPIRIN 81 MG ENTERIC TAB PO SCH (08:31)
[2019-03-16] MEDS: clonazePAM 0.5 MG TAB PO SCH ×2 (08:31→21:58)
[2019-03-16] MEDS: CLOPIDOGREL 75 MG TAB PO SCH (08:31)
[2019-03-16] MEDS: levETIRAcetam 250MG TABLET (KEPPRA) PO SCH ×2 (08:31→21:58)
[2019-03-16] MEDS: FERROUS SULFATE 325MG TAB PO SCH ×2 (08:31→21:58)
[2019-03-16] MEDS: PANTOPRAZOLE 40MG TAB (PROTONIX) PO SCH (08:32)
[2019-03-16] MEDS: tiZANidine 4 MG TAB PO SCH ×3 (08:32→22:00)
[2019-03-16] MEDS: CARVedilol 12.5 MG TAB PO SCH ×2 (08:40→22:01)
[2019-03-16] MEDS: HEPARIN SOD (PORCINE) 5000 UNITS/ML VIAL (J1644 PER 1000UNITS) SC SCH ×2 (08:40→21:59)
[2019-03-16] MEDS: **hydrALAZINE** 50 MG TAB PO SCH ×3 (08:40→21:00)
[2019-03-16] MEDS: REMEDY PHYTOPLEX Z-GUARD PASTE 113GM TUBE (FROM STOREROOM PRODUCT) TOP SCH ×3 (08:41→21:00)
[2019-03-16] MEDS: ANALGESIC BALM CRM 120 GM TOP SCH ×3 (08:41→22:04)
[2019-03-16] MEDS ORDERED: POTASSIUM CHLORIDE 10 MEQ SR TABLET PO SCH (09:00)
[2019-03-16] MEDS ORDERED: PATIROMER SORBITEX CALCIUM 8.4 GM POWDER PACKET (VELTASSA) PO ONE (12:00)
[2019-03-16 14:00] VITALS: BP 122/58
[2019-03-16 20:00] VITALS: BP 136/65
[2019-03-16] MEDS: SENNA 8.6 MG TAB (SENOKOT) PO SCH (21:59)
[2019-03-16] MEDS: PRAVASTATIN 20 MG TAB PO SCH (22:00)
[2019-03-16] MEDS: ISOSORBIDE MON. (IMDUR) 60 MG XR TAB PO SCH (22:02)
[2019-03-16] MEDS: LEVEMIR (INSULIN DETEMIR) 1 UNITS/0.01ML SC SCH (22:02)
[2019-03-17] MEDS: GABAPENTIN 100 MG CAP PO SCH ×2 (01:03→20:14)
[2019-03-17 06:00] VITALS: BP 117/56
[2019-03-17] MEDS: rOPINIRole 2MG TAB PO SCH ×3 (06:02→22:23)
[2019-03-17 06:58] LABS: CALCIUM LEVEL 9.2 MG/DL (8.8-10.2); CREATININE FOR GFR 2.46 MG/DL (0.55-1.30); GLOMERULAR FILTRATION RATE 20.5 (>39)
[2019-03-17] MEDS: VITAMIN D 1,000 INTERNATIONAL UNITS TABLET PO SCH ×2 (08:31→20:15)
[2019-03-17] MEDS: SPIRONOLACTONE 50 MG TAB PO SCH ×2 (08:31→17:07)
[2019-03-17] MEDS: FERROUS SULFATE 325MG TAB PO SCH ×2 (08:32→20:16)
[2019-03-17] MEDS: PANTOPRAZOLE 40MG TAB (PROTONIX) PO SCH (08:32)
[2019-03-17] MEDS: ASPIRIN 81 MG ENTERIC TAB PO SCH (08:32)
[2019-03-17] MEDS: tiZANidine 4 MG TAB PO SCH ×3 (08:32→20:16)
[2019-03-17] MEDS: clonazePAM 0.5 MG TAB PO SCH ×2 (08:32→20:16)
[2019-03-17] MEDS: CLOPIDOGREL 75 MG TAB PO SCH (08:32)
[2019-03-17] MEDS: levETIRAcetam 250MG TABLET (KEPPRA) PO SCH ×2 (08:32→20:15)
[2019-03-17] MEDS: ANALGESIC BALM CRM 120 GM TOP SCH ×3 (08:33→20:21)
[2019-03-17] MEDS: HEPARIN SOD (PORCINE) 5000 UNITS/ML VIAL (J1644 PER 1000UNITS) SC SCH ×2 (08:33→20:16)
[2019-03-17] MEDS: CARVedilol 12.5 MG TAB PO SCH ×2 (08:34→20:15)
[2019-03-17] MEDS: KORLYM PO SCH (08:34)
[2019-03-17] MEDS: DOCUSATE SODIUM 100 MG CAP PO SCH ×2 (08:36→20:15)
[2019-03-17] MEDS: **hydrALAZINE** 50 MG TAB PO SCH ×3 (08:36→20:15)
[2019-03-17] MEDS: HumaLOG INSULIN (NovoLOG) PER UNIT SC SCH ×4 (08:37→20:17)
[2019-03-17] MEDS: REMEDY PHYTOPLEX Z-GUARD PASTE 113GM TUBE (FROM STOREROOM PRODUCT) TOP SCH ×3 (09:00→20:18)
[2019-03-17] MEDS: FUROSEMIDE 40 MG TAB PO SCH ×2 (09:00→15:15)
--- NOTE | 2019-03-17 09:41 | IPN ---
DATE OF SERVICE: 03/16/2019 SUBJECTIVE: The patient was seen and examined at the bedside today morning. She was actually sitting in the reclining sofa when I saw her in the morning. She is afebrile and her renal function is slightly worse. Creatinine has bumped up from 2.2 to 2.5. Her diuretic dose was decreased yesterday. She denies any more edema of the bilateral lower extremities. OBJECTIVE: Vital Signs: Temperature is 97.1 degrees Fahrenheit, blood pressure 122/58, pulse is 58, respiratory rate of 18, saturating 96% on room air. Intake and Output: Urine output recorded as 2.8 liters yesterday, 1300 mL so far today since overnight. Weight in the bed scale is 83.2 kg. PHYSICAL EXAMINATION: General: The patient is awake, alert, oriented x3, morbidly obese, sitting up in the sofa in no apparent distress. Head and Neck Exam: Extraocular muscles intact. Pupils equally round and reactive to light. Mucous membranes are moist. Neck is supple. There is no jugular venous distention (JVD). Cardiovascular: S1, S2. Regular rate. Very trace edema of the bilateral ankles. Respiratory: Chest is clear to auscultation bilaterally. Bilateral equal air entry. No rales or rhonchi. Abdomen: Soft, obese. She has a right lower quadrant urostomy which is attached to a bag. Musculoskeletal: No clubbing or cyanosis. Pulses are 2+. 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 Power is 5/5 in all extremities. LAB REVIEW: CBC showed a WBC of 6.1 and hemoglobin 11.4, and that is from yesterday. BMP done today showed sodium 138, potassium 5.6, chloride 102, bicarb 31, BUN 51, creatinine is2.55 and it was 2.2 yesterday. CURRENT INPATIENT MEDICATIONS: The patient's medications were all reviewed by me. Lasix was decreased to 40 mg by mouth twice a day yesterday. Potassium chloride was decreased to 40 mEq daily, however, it has been stopped today morning because of high potassium. She continues to be on spironolactone 100 mg by mouth twice a day. ASSESSMENT/PLAN: 1. Chronic diastolic congestive heart failure. Volume status is better since creatinine is bumping up. Lasix was already decreased to 40 mg by mouth twice a day. Continue spironolactone 100 mg by mouth twice. Further adjustment of dose will be done tomorrow morning. 2. Hyperkalemia. Oral potassium has been stopped now. She continues to be on spironolactone 100 mg by mouth twice a day. If potassium stays high, then spironolactone dose will be decreased. 3. Acute kidney injury superimposed on chronic kidney disease stage III. Creatinine has also bumped up to 2.5. As mentioned above, diuretic dose has been decreased. Further dose adjustment will be done tomorrow morning after response to the current diuretic dose. MTDD
[2019-03-17] MEDS: LEVEMIR (INSULIN DETEMIR) 1 UNITS/0.01ML SC SCH ×2 (11:02→20:17)
[2019-03-17 12:07] LABS: BASO % 0.4 % (0.0-1.0); EOS # 0.1 10^3/uL (0.0-0.5); EOS % 0.9 % (0.0-3.0); HEMATOCRIT 35.9 % (36.0-47.0); HEMOGLOBIN 10.9 g/dl (12.0-15.5); LYMPH # 1.7 10^3/uL (1.5-5.0); LYMPH % 32.1 % (24.0-44.0); MEAN CORPUSCULAR HGB CONC 30.4 g/dl (32.0-36.5); MONO # 0.5 10^3/uL (0.0-0.8); MONO % 10.2 % (0.0-5.0); PLATELET COUNT, AUTOMATED 159 10^3/uL (150-450); RED BLOOD COUNT 3.52 10^6/uL (4.00-5.40); WHITE BLOOD COUNT 5.3 10^3/uL (4.0-10.0)
--- NOTE | 2019-03-17 12:12 | IPNPDOC ---
PM&R Progress Note DATE OF SERVICE: Mar 17, 2019 Maintenance Clerk Progress Note Subjective: Patient seen in therapy with left sided AFO and much better clearing her foot. She reports feeling fatigued, but thinks the Gabapentin at night is helping her leg pain considerably. She reports her urine is usually not cloudy. REVIEW OF SYSTEMS: The following is a completed review of systems and has been reviewed. Review of systems otherwise unremarkable. PAIN: Patient self reports mild leg cramping EYES: No recent vision changes EARS, NOSE, & THROAT: No throat pain, or dysphagia, or rhinorrhea CARDIOVASCULAR: Denies chest pain or palpitations PULMONARY: Denies shortness of breath GASTROINTESTINAL: Denies constipation/diarrhea GENITOURINARY: +ileal conduit MUSCULOSKELETAL: generalized weakness NEUROLOGICAL:no focal tremor, no paresis HEMATOLOGICAL:denies easy bruising SKIN:no rash PSYCHIATRIC: Unremarkable All other review of systems found to be negative. PHYSICAL EXAMINATION: VITAL SIGNS: Please see below. GENERAL: Pleasant and cooperative. No acute distress. HEENT: PERRL. Extraocular movements intact. Clear conjunctiva CARDIOVASCULAR: Regular rate and rhythm. No murmurs, rubs, or gallops LUNGS: Clear to auscultation bilaterally. No wheezes. No rhonchi ABDOMEN: Soft, nontender, +mildly distended. Positive bowel sounds. Normal a ctive bowel sounds ileostomy NEUROLOGICAL: Alert and oriented times three. Cranial nerves II through XII grossly intact. Sensation grossly intact EXTREMITIES: 4\5 strength bilateral upper extremities. 4\5 strength right lower extremity. 4/5 strength in left lower extremity. 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 Neuro: hx of multiple CVA with new right elpidio infarct, c/u ASA, Plavix, statin for secondary prevention -optimize BP management - Keppra for seizure prophylaxis (added while on inpatient unit) -On requip for restless leg syndrome, already on high dose, unable to increase further, will trial addition of Gabapentin 100mg qHS and second between 1-3 am is patient awakened by her legs 3. Cardiac: patient with poorly controlled HTN- c/u Coreg, clonidine patch, Imdur, switched to po lasix, c/u hydralazine-overall BPs improving -chronic diastolic CHF, c/u diuretics, fluid restriction, will consult renal to assist 4. Resp: encourage incentive spirometry, monitor for infection -+hx of ALEX, patient encouraged to have bring in CPAP machine 5. Endo: pmh DM with peripheral neuropathy- c/u Levemir and ISS, increasing evening dose and starting daily Levemir as well -[place] syndrome with hypokalemia- c/u potassium and Korlym 6. Renal: LEONARD in setting of CKD3, c/u Urocrit, renal consulted to follow fluid management and kidney function-recs appreciated -elevated Mg levels, Mg-Ox on hold -hyperkalemia over the weekend, potassium d/c'd- renal following 7. Pain: Tylenol prn and tizanidine 8. Psych: Klonipin BID -patient reporting insomnia and leg pain at night is greatly improved with Gabapentin qHS and again between 1-3am for restless leg syndrome 9. DVT ppx: heparin and TEDs, Doppler negative for DVT 10.GI ppx: protonix 11. 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 Dispo: 03-18-19 to home, progressing towards goals Allergies Coded Allergies: No Known Allergies (Unverified , 05/27/18) Vital Signs Vital Signs Date Time Temp Pulse Resp B/P (MAP) Pulse Ox O2 Delivery O2 Flow Rate FiO2 03/17/19 08:36 117/56 03/17/19 08:34 55 03/17/19 06:00 96.5 18 95 Room Air Laboratory Data CBC/BMP Laboratory Tests 03/17/19 06:18 Labs 24H Laboratory Tests 2 03/16/19 16:23: Bedside Glucose (Misc Panel) 217H 03/16/19 20:36: Bedside Glucose (Misc Panel) 298H 03/17/19 06:18: Anion Gap 6L, Glomerular Filtration Rate 20.5L, Calcium Level 9.2 03/17/19 11:32: Bedside Glucose (Misc Panel) 215H Current Medications Current Medications Current Medications Medications (Trade) Dose Ordered Sig/Eric Route PRN Reason Start Time Stop Time Status Last Admin Dose Admin Acetaminophen (Tylenol Tab) 650 mg Q4HP PRN PO fever/MILD PAIN (PS 1-4) 03/05/19 13:45 03/16/19 22:04 Aspirin (Ecotrin) 81 mg DAILY PO 03/06/19 09:00 03/17/19 08:32 Carvedilol (COReg) 25 mg BID PO 03/05/19 21:00 03/16/19 22:01 Clonazepam (KlonoPIN) 0.25 mg BID PO 03/05/19 21:00 03/17/19 08:32 Clonidine HCl (Kkfjkpqw-Kiz-6) 1 ea Tu@09 [facility] 03/11/19 09:00 03/11/19 08:07 Clopidogrel Bisulfate (PLAVix) 75 mg DAILY PO 03/06/19 09:00 03/17/19 08:32 Dextrose (Dextrose 50%) 25 ml ASDIRECTED PRN IV SEE LABEL COMMENTS 03/05/19 13:45 Docusate Sodium (Colace) 100 mg BID PO 03/05/19 21:00 03/16/19 21:58 Ferrous Sulfate (Ferrous Sulfate) 325 mg BID PO 03/05/19 21:00 03/17/19 08:32 Fluticasone Propionate (Flonase 0.05% Nasal [place]) 1 SPRAY IN EACH NOSTRIL BID NARES 03/05/19 21:00 03/10/19 12:54 DC 03/08/19 21:10 Furosemide (LASIX injection) 40 mg Q8H IV 03/07/19 14:00 03/07/19 12:09 DC Furosemide (LASIX injection) 40 mg Q8H IV 03/07/19 14:00 03/09/19 16:58 DC 03/09/19 14:12 Furosemide (LASIX injection) 60 mg Q6H IV 03/05/19 18:00 03/07/19 11:22 DC 03/07/19 06:09 Furosemide (Lasix) 40 mg BID@,17 PO 03/16/19 09:00 03/16/19 17:07 Furosemide (Lasix) 60 mg BID@,17 PO 03/10/19 09:00 03/11/19 11:09 DC 03/11/19 08:07 Furosemide (Lasix) 60 mg BID@, PO 03/13/19 17:00 03/15/19 23:53 DC 03/15/19 18:10 Furosemide (Lasix) 80 mg BID@,17 PO 03/11/19 17:00 03/13/19 09:47 DC 03/13/19 08:06 Gabapentin (Neurontin) 100 mg BID@0200,2100 PO 03/14/19 21:00 03/17/19 01:03 Gabapentin (Neurontin) 100 mg QHS PO 03/13/19 21:00 03/14/19 16:04 DC 03/13/19 21:37 Glucagon (Glucagon) 1 mg ASDIRECTED PRN SC SEE LABEL COMMENTS 03/05/19 13:45 Glucose (Glucose) 16 GM ASDIRECTED PRN PO SEE LABEL COMMENTS 03/05/19 13:45 Heparin Sodium (Porcine) (Heparin) 5,000 units Q12H SC 03/05/19 21:00 03/17/19 08:33 Hydralazine HCl (Apresoline) 25 mg Q6H PRN PO see below 03/05/19 18:00 03/06/19 11:27 DC 03/06/19 02:29 Hydralazine HCl (Apresoline) 25 mg Q8H PO 03/06/19 14:00 03/07/19 07:21 DC 03/07/19 06:08 Hydralazine HCl (Apresoline) 50 mg Q6H PO 03/07/19 12:00 03/13/19 09:46 DC 03/12/19 23:20 Hydralazine HCl (Apresoline) 50 mg TID PO 03/13/19 16:00 03/15/19 20:51 Insulin Detemir (Levemir Insulin) 5 units DAILY SC 03/17/19 10:30 03/17/19 11:02 Insulin Detemir (Levemir Insulin) 40 units QHS SC 03/05/19 21:00 03/12/19 09:48 DC 03/11/19 21:18 Insulin Detemir (Levemir Insulin) 44 units QHS SC 03/12/19 21:00 03/17/19 10:15 DC 03/16/19 22:02 Insulin Detemir (Levemir Insulin) 50 units QHS SC 03/17/19 21:00 Insulin Human Lispro (HumaLOG INSULIN) SEE PROTOCOL TABLE AC SC 03/05/19 17:30 03/17/19 08:37 Insulin Human Lispro (HumaLOG INSULIN) SEE PROTOCOL TABLE QHS SC 03/05/19 21:00 03/16/19 22:03 Isosorbide Mononitrate (Imdur) 60 mg QHS PO 03/05/19 21:00 03/16/19 22:02 Levetiracetam (Keppra) 250 mg BID PO 03/05/19 21:00 03/17/19 08:32 Magnesium Hydroxide (Milk Of Magnesia) 30 ml DAILYPRN PRN PO CONSTIPATION 03/05/19 13:45 03/16/19 08:39 Magnesium Oxide (Mag-Ox) 400 mg BID PO 03/05/19 21:00 03/11/19 10:40 DC 03/11/19 08:06 Magnesium Oxide (Mag-Ox) 400 mg DAILY PO 03/12/19 09:00 03/13/19 09:46 DC Menthol/Methyl Salicylate (Bengay Cream) apply to bilat lower ... TID TOP 03/05/19 16:00 03/16/19 22:04 Miscellaneous (Unresolved Patient Own Med Order) SEE LABEL COMMENTS DAILY XX 03/05/19 09:00 03/05/19 18:27 DC Pantoprazole Sodium (Protonix) 40 mg DAILY PO 03/06/19 09:00 03/17/19 08:32 Patient Own Medication (Patient'S Own Med) 600MG = 2 TABS DAILY PO 03/06/19 09:00 03/17/19 08:34 Patient Own Medication (Patient'S Own Med) Korlym 600mg da... ASDIRECTED PO 03/05/19 13:45 UNV Potassium Chloride (Micro-K Extencaps) 40 meq BID PO 03/06/19 21:00 03/15/19 11:47 DC 03/15/19 09:52 Potassium Chloride (Micro-K Extencaps) 40 meq DAILY PO 03/06/19 09:00 03/06/19 10:17 DC 03/06/19 09:07 Potassium Chloride (Micro-K Extencaps) 40 meq DAILY PO 03/16/19 09:00 03/16/19 12:38 DC Potassium Citrate (Urocit-K) 1,080 mg BID@,18 PO 03/05/19 18:00 03/07/19 08:03 DC 03/06/19 17:57 Potassium Citrate (Urocit-K) 1,080 mg BID@, PO 03/07/19 08:00 03/10/19 12:35 DC 03/10/19 07:42 Pravastatin Sodium (Pravachol) 40 mg QHS PO 03/05/19 21:00 03/16/19 22:00 Ropinirole HCl (Requip) 2 mg BID@0600,1400 PO 03/06/19 06:00 03/17/19 06:02 Ropinirole HCl (Requip) 4 mg QHS PO 03/05/19 21:00 03/05/19 14:58 DC Ropinirole HCl (Requip) 4 mg QHS@2200 PO 03/05/19 22:00 03/16/19 21:58 Senna (Senokot) 1 tab QHS PO 03/05/19 21:00 03/16/19 21:59 Sodium Chloride ([place] Nasal [place]) 2 SPRAYS EACH NOSTRIL QID NA 03/05/19 21:00 03/10/19 12:54 DC 03/08/19 21:11 Spironolactone (Aldactone) 75 mg BID@ PO 03/05/19 17:00 03/07/19 12:53 DC 03/07/19 07:46 Spironolactone (Aldactone) 100 mg BID@, PO 03/07/19 17:00 03/17/19 08:31 Tizanidine HCl (Zanaflex) 2 mg TID PO 03/05/19 21:00 03/17/19 08:32 Trazodone HCl (Desyrel) 25 mg QHSP PRN PO INSOMNIA 03/13/19 15:45 03/14/19 16:04 DC 03/13/19 23:15 Vitamin D (Vitamin D) 2,000 units BID PO 03/05/19 21:00 03/17/19 08:31 EVELIN ROGERS MD Mar 17, 2019 12:12
[2019-03-17 14:00] VITALS: BP 160/69
[2019-03-17 17:06] VITALS: BP 148/70
--- NOTE | 2019-03-17 17:33 | IPNPDOC ---
Text Note Date of Service The patient was seen on 03/17/19. NOTE This note pertains to the nephrology service with Momo Nickerson MD super vising my work. Please see E attestation below. SUBJECTIVE: Patient was seen in her hospital room this morning. She was preparing to leave her room for physical therapy. She remains afebrile and does hot have any further complaints at this time. OBJECTIVE: Vital Signs: See below. General: Pt appears stated age, is in no acute distress, and is standing with the assistance of a two-wheel walker. HEENT: Normocephalic, atraumatic. EOMI. Mucous membranes are moist. Neck is supple. Cardiovascular: Regular rate and rhythm. Normal S1 and S2. 1+ b/l ankle swelling present. Respiratory: Lungs are clear to auscultation b/l. No wheezes, rales, or rhonchi. Abdomen: Soft, obese. Right lower quadrant urostomy present and attached to a bag. Psychological: Pt is calm and cooperative. She answers questions appropriately. Insight is good. Intake and Output: Urine output recorded as 2 liters yesterday, 350 mL so far today. Weight in the bed scale is 83.2 kg. Lab values: CBC showed a WBC of 5.3 and hemoglobin 10.9. BMP showed sodium 137, potassium 5.0, chloride 101, bicarb 30, BUN 56, creatinine is 2.46 and it was 2.54 yesterday. ASSESSMENT/PLAN: 1. Chronic diastolic congestive heart failure - Creatinine decreased to 2.46 this morning. Ankle edema still present on exam, but has been improving. - Recommend continuing current regimen of furosemide and spironolactone. Will continue to adjust diuresis as needed. 2. Hyperkalemia, resolved. - Potassium was 5.0 this morning. No further action is recommended at this time. Will continue to monitor. 3. Acute kidney injury superimposed on chronic kidney disease stage III - Creatinine decreased since yesterday, but is still high. - Recommend continuing diuresis as ordered. Will continue to monitor and adjust tomorrow as needed. VS,Fishbone, I+O VS, Fishbone, I+O Laboratory Tests 03/17/19 06:15 03/17/19 06:18 Vital Signs Date Time Temp Pulse Resp B/P (MAP) Pulse Ox O2 Delivery O2 Flow Rate FiO2 2/10/20 15:05 160/69 03/17/19 14:00 97.0 55 20 95 Room Air I&O- Last 24 Hours up to 6 AM 03/17/19 06:00 Intake Total 1230 ml Output Total 2350 ml Balance -1120 ml GME ATTESTATION GME ATTESTATION My faculty preceptor for this patient encounter was physically present during the encounter and was fully available. All aspects of the patient interview, examination, medical decision making process, and medical care plan development were reviewed and approved by the faculty preceptor. The faculty preceptor is aware and concurs with the plan as stated in the body of this note and will attest to such by his/her cosignature. ATTENDING NOTE Pt was examined today AM Please continue current diuretic regimen. Renal function stable and improving. volume status is well optimized. TOSHIA SMITH OMS-III Mar 17, 2019 17:33 MOMO NICKERSON MD Mar 17, 2019 22:33
[2019-03-17 19:56] VITALS: BP 152/73
[2019-03-17] MEDS: PRAVASTATIN 20 MG TAB PO SCH (20:16)
[2019-03-17] MEDS: SENNA 8.6 MG TAB (SENOKOT) PO SCH (20:16)
[2019-03-17] MEDS: ISOSORBIDE MON. (IMDUR) 60 MG XR TAB PO SCH (20:16)
[2019-03-17] MEDS: ACETAMINOPHEN TAB 650MG DOSE (2X325MG) PO PRN (22:23)
[2019-03-18] MEDS: GABAPENTIN 100 MG CAP PO SCH ×2 (03:37→20:58)
[2019-03-18] MEDS: rOPINIRole 2MG TAB PO SCH ×3 (05:49→21:00)
[2019-03-18 06:01] VITALS: BP 144/60
[2019-03-18] MEDS: LEVEMIR (INSULIN DETEMIR) 1 UNITS/0.01ML SC SCH ×2 (07:44→21:00)
[2019-03-18] MEDS: HumaLOG INSULIN (NovoLOG) PER UNIT SC SCH ×4 (07:45→21:00)
[2019-03-18] MEDS: PANTOPRAZOLE 40MG TAB (PROTONIX) PO SCH (07:46)
[2019-03-18] MEDS: levETIRAcetam 250MG TABLET (KEPPRA) PO SCH ×2 (07:46→20:58)
[2019-03-18] MEDS: **hydrALAZINE** 50 MG TAB PO SCH ×3 (07:46→20:59)
[2019-03-18] MEDS: tiZANidine 4 MG TAB PO SCH ×3 (07:46→20:59)
[2019-03-18] MEDS: VITAMIN D 1,000 INTERNATIONAL UNITS TABLET PO SCH ×2 (07:47→20:58)
[2019-03-18] MEDS: SPIRONOLACTONE 50 MG TAB PO SCH ×2 (07:47→16:58)
[2019-03-18] MEDS: FUROSEMIDE 40 MG TAB PO SCH ×2 (07:47→16:58)
[2019-03-18] MEDS: CARVedilol 12.5 MG TAB PO SCH ×2 (07:47→21:49)
[2019-03-18] MEDS: HEPARIN SOD (PORCINE) 5000 UNITS/ML VIAL (J1644 PER 1000UNITS) SC SCH ×2 (07:48→20:59)
[2019-03-18] MEDS: clonazePAM 0.5 MG TAB PO SCH ×2 (07:48→20:58)
[2019-03-18] MEDS: FERROUS SULFATE 325MG TAB PO SCH ×2 (07:48→20:58)
[2019-03-18] MEDS: ASPIRIN 81 MG ENTERIC TAB PO SCH (07:48)
[2019-03-18] MEDS: DOCUSATE SODIUM 100 MG CAP PO SCH ×2 (07:48→20:58)
[2019-03-18] MEDS: ANALGESIC BALM CRM 120 GM TOP SCH ×3 (07:49→21:03)
[2019-03-18] MEDS: REMEDY PHYTOPLEX Z-GUARD PASTE 113GM TUBE (FROM STOREROOM PRODUCT) TOP SCH ×3 (07:50→21:00)
[2019-03-18] MEDS: cloNIDine HCL 0.2 MG/24 HR PATCH TOP SCH (07:50)
[2019-03-18] MEDS: KORLYM PO SCH (07:51)
[2019-03-18] MEDS: CLOPIDOGREL 75 MG TAB PO SCH (07:52)
[2019-03-18 11:15] LABS: ALBUMIN 3.7 GM/DL (3.2-5.2); CREATININE FOR GFR 2.04 MG/DL (0.55-1.30); GLOMERULAR FILTRATION RATE 25.5 (>39); PHOSPHORUS LEVEL 3.3 MG/DL (2.5-4.9); POTASSIUM SERUM 4.8 MEQ/L (3.5-5.1)
--- NOTE | 2019-03-18 11:28 | IPNPDOC ---
Text Note Date of Service The patient was seen on 03/18/19. NOTE This note pertains to the nephrology service with Jacqueline Nickerson MD super vising my work. Please see E attestation below. SUBJECTIVE: Patient was seen in the [facility] physical therapy room this morning. She remains afebrile and does hot have any further complaints at this time. OBJECTIVE: Vital Signs: See below. General: Pt appears stated age, is in no acute distress, and is standing with the assistance of a two-wheel walker. HEENT: Normocephalic, atraumatic. EOMI. Mucous membranes are moist. Neck is supple. Cardiovascular: Regular rate and rhythm. Normal S1 and S2. 1+ b/l ankle swelling present. Respiratory: Lungs are clear to auscultation b/l. No wheezes, rales, or rhonchi. Abdomen: Soft, obese. Right lower quadrant urostomy present and attached to a bag. Psychological: Pt is calm and cooperative. She answers questions appropriately. Insight is good. Intake and Output: Urine output recorded as 900 mL yesterday, 1750 mL so far today. Lab values: BMP showed sodium 138, potassium 4.8, chloride 101, and bicarb 28 with BUN (49) and creatinine (2.04) both trending down from yesterday. ASSESSMENT/PLAN: 1. Chronic diastolic congestive heart failure - Creatinine decreased to 2.04 this morning. Ankle edema still present on exam, but has been improving. - Recommend continuing current regimen of furosemide and spironolactone. Will continue to monitor and adjust tomorrow as needed. 2. Hyperkalemia, resolved - Potassium was 4.8 this morning. No further action is recommended at this time. Will continue to monitor. 3. Acute kidney injury on chronic kidney disease stage III - Creatinine has decreased since yesterday and is trending down, but is still high. - Recommend continuing diuresis (see #1). VS,Fishbone, I+O VS, Fishbone, I+O Laboratory Tests 03/18/19 10:26 Vital Signs Date Time Temp Pulse Resp B/P (MAP) Pulse Ox O2 Delivery O2 Flow Rate FiO2 03/18/19 07:46 144/60 03/18/19 06:01 97.0 59 18 97 Room Air I&O- Last 24 Hours up to 6 AM 03/18/19 06:00 Intake Total 1140 ml Output Total 550 ml Balance 590 ml GME ATTESTATION GME ATTESTATION My faculty preceptor for this patient encounter was physically present during the encounter and was fully available. All aspects of the patient interview, examination, medical decision making process, and medical care plan development were reviewed and approved by the faculty preceptor. The faculty preceptor is aware and concurs with the plan as stated in the body of this note and will attest to such by his/her cosignature. TOSHIA SMITH S-III Mar 18, 2019 11:28
[2019-03-18 14:00] VITALS: BP 98/55
--- NOTE | 2019-03-18 15:02 | IPNPDOC ---
PM&R Progress Note DATE OF SERVICE: Mar 18, 2019 [employer] Mechan[employer] Progress Note Subjective: Patient seen this morning stating she feels tired, but is ready to try working on transfers from [id number] in order to be able to get home. REVIEW OF SYSTEMS: The following is a completed review of systems and has been reviewed. Review of systems otherwise unremarkable. PAIN: Patient self reports mild leg cramping EYES: No recent vision changes EARS, NOSE, & THROAT: No throat pain, or dysphagia, or rhinorrhea CARDIOVASCULAR: Denies chest pain or palpitations PULMONARY: Denies shortness of breath GASTROINTESTINAL: Denies constipation/diarrhea GENITOURINARY: +ileal conduit MUSCULOSKELETAL: generalized weakness NEUROLOGICAL:no focal tremor, no paresis HEMATOLOGICAL:denies easy bruising SKIN:no rash PSYCHIATRIC: Unremarkable All other review of systems found to be negative. PHYSICAL EXAMINATION: VITAL SIGNS: Please see below. GENERAL: Pleasant and cooperative. No acute distress. HEENT: PERRL. Extraocular movements intact. Clear conjunctiva CARDIOVASCULAR: Regular rate and rhythm. No murmurs, rubs, or gallops LUNGS: Clear to auscultation bilaterally. No wheezes. No rhonchi ABDOMEN: Soft, nontender, +mildly distended. Positive bowel sounds. Normal active bowel sounds ileostomy NEUROLOGICAL: Alert and oriented times three. Cranial nerves II through XII grossly intact. Sensation grossly intact EXTREMITIES: 4\5 strength bilateral upper extremities. 4\5 strength right lower extremity. 4/5 strength in left lower extremity. + bilat LE edema (improving) SKIN: sacrum with blanchable erythema ASSESSMENT:74-year-old F with past medical history of multiple CVAs and HTN who presents status post new stroke PLAN: 1.Rehab- PT/OT, advance agit and ADl training, maintain rom/stretch/strengthen all 4 limbs, assess for DMEs- left foot drop, improving with AFO, consulted component engineer for fitting -[employer] cognition 2. Neuro: hx of multiple CVA with new right elpidio infarct, c/u ASA, Plavix, statin for secondary prevention -optimize BP management - Keppra for seizure prophylaxis (added while on inpatient unit) -On requip for restless leg syndrome, already on high dose, unable to increase further, c/u addition of Gabapentin 100mg qHS and second between 1-3 am is patient awakened by her legs 3. Cardiac: patient with poorly controlled HTN- c/u Coreg, clonidine patch, Imdur, switched to po lasix (both doses held yesterday) c/u hydralazine-overall BPs improving -chronic diastolic CHF, c/u diuretics, fluid restriction- renal following recs appreciate 4. Resp: encourage incentive spirometry, monitor for infection -+hx of ALEX, patient encouraged to have bring in CPAP machine 5. Endo: pmh DM with peripheral neuropathy- c/u Levemir and ISS, increasing evening dose and starting daily Levemir as well -Dee syndrome with hypokalemia- c/u potassium and Korlym 6. Renal: LEONARD in setting of CKD3, c/u Urocrit, renal consulted to follow fluid management and kidney function-recs appreciated -elevated Mg levels, Mg-Ox on hold -hyperkalemia over the weekend, potassium d/c'd- renal following 7. Pain: Tylenol prn and tizanidine 8. Psych: Klonipin BID -patient reporting insomnia and leg pain at night is greatly improved with Gabapentin qHS and again between 1-3am for restless leg syndrome 9. DVT ppx: heparin and TEDs, Doppler negative for DVT 10.GI ppx: protonix 11. 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 Dispo: 03-18-19 to home, progressing towards goals Allergies Coded Allergies: No Known Allergies (Unverified , 05/27/18) Vital Signs Vital Signs Date Time Temp Pulse Resp B/P (MAP) Pulse Ox O2 Delivery O2 Flow Rate FiO2 03/18/19 14:00 97.1 55 18 98/55 (69) 99 Room Air Laboratory Data CBC/BMP Laboratory Tests 03/18/19 10:26 Labs 24H Laboratory Tests 2 03/17/19 16:44: Bedside Glucose (Misc Panel) 250H 03/17/19 19:30: Bedside Glucose (Misc Panel) 255H 03/18/19 05:53: Bedside Glucose (Misc Panel) 195H 03/18/19 10:26: Anion Gap 9, Glomerular Filtration Rate 25.5L, Calcium Level 9.0, Phosphorus Level 3.3, Albumin 3.7 03/18/19 11:31: Bedside Glucose (Misc Panel) 236H Current Medications Current Medications Current Medications Medications (Trade) Dose Ordered Sig/Eric Route PRN Reason Start Time Stop Time Status Last Admin Dose Admin Acetaminophen (Tylenol Tab) 650 mg Q4HP PRN PO fever/MILD PAIN (PS 1-4) 03/05/19 13:45 03/17/19 22:23 Aspirin (Ecotrin) 81 mg DAILY PO 03/06/19 09:00 03/18/19 07:48 Carvedilol (COReg) 25 mg BID PO 03/05/19 21:00 03/18/19 07:47 Clonazepam (KlonoPIN) 0.25 mg BID PO 03/05/19 21:00 03/18/19 07:48 Clonidine HCl (Almfgzmx-Lqe-4) 1 ea Tu@09 [facility] 03/11/19 09:00 03/18/19 07:50 Clopidogrel Bisulfate (PLAVix) 75 mg DAILY PO 03/06/19 09:00 03/18/19 07:52 Dextrose (Dextrose 50%) 25 ml ASDIRECTED PRN IV SEE LABEL COMMENTS 03/05/19 13:45 Docusate Sodium (Colace) 100 mg BID PO 03/05/19 21:00 03/18/19 07:48 Ferrous Sulfate (Ferrous Sulfate) 325 mg BID PO 03/05/19 21:00 03/18/19 07:48 Fluticasone Propionate (Flonase 0.05% Nasal [place]) 1 SPRAY IN EACH NOSTRIL BID NARES 03/05/19 21:00 03/10/19 12:54 DC 03/08/19 21:10 Furosemide (LASIX injection) 40 mg Q8H IV 03/07/19 14:00 03/07/19 12:09 DC Furosemide (LASIX injection) 40 mg Q8H IV 03/07/19 14:00 03/09/19 16:58 DC 03/09/19 14:12 Furosemide (LASIX injection) 60 mg Q6H IV 03/05/19 18:00 03/07/19 11:22 DC 03/07/19 06:09 Furosemide (Lasix) 40 mg BID@09,17 PO 03/16/19 09:00 03/18/19 07:47 Furosemide (Lasix) 60 mg BID@09,17 PO 03/10/19 09:00 03/11/19 11:09 DC 03/11/19 08:07 Furosemide (Lasix) 60 mg BID@,17 PO 03/13/19 17:00 03/15/19 23:53 DC 03/15/19 18:10 Furosemide (Lasix) 80 mg BID@,17 PO 03/11/19 17:00 03/13/19 09:47 DC 03/13/19 08:06 Gabapentin (Neurontin) 100 mg BID@0200,2100 PO 03/14/19 21:00 03/18/19 03:37 Gabapentin (Neurontin) 100 mg QHS PO 03/13/19 21:00 03/14/19 16:04 DC 03/13/19 21:37 Glucagon (Glucagon) 1 mg ASDIRECTED PRN SC SEE LABEL COMMENTS 03/05/19 13:45 Glucose (Glucose) 16 GM ASDIRECTED PRN PO SEE LABEL COMMENTS 03/05/19 13:45 Heparin Sodium (Porcine) (Heparin) 5,000 units Q12H SC 03/05/19 21:00 03/18/19 07:48 Hydralazine HCl (Apresoline) 25 mg Q6H PRN PO see below 03/05/19 18:00 03/06/19 11:27 DC 03/06/19 02:29 Hydralazine HCl (Apresoline) 25 mg Q8H PO 03/06/19 14:00 03/07/19 07:21 DC 03/07/19 06:08 Hydralazine HCl (Apresoline) 50 mg Q6H PO 03/07/19 12:00 03/13/19 09:46 DC 03/12/19 23:20 Hydralazine HCl (Apresoline) 50 mg TID PO 03/13/19 16:00 03/18/19 07:46 Insulin Detemir (Levemir Insulin) 5 units DAILY SC 03/17/19 10:30 03/18/19 07:44 Insulin Detemir (Levemir Insulin) 40 units QHS SC 03/05/19 21:00 03/12/19 09:48 DC 03/11/19 21:18 Insulin Detemir (Levemir Insulin) 44 units QHS SC 03/12/19 21:00 03/17/19 10:15 DC 03/16/19 22:02 Insulin Detemir (Levemir Insulin) 50 units QHS SC 03/17/19 21:00 03/17/19 20:17 Insulin Human Lispro (HumaLOG INSULIN) SEE PROTOCOL TABLE AC SC 03/05/19 17:30 03/18/19 11:35 Insulin Human Lispro (HumaLOG INSULIN) SEE PROTOCOL TABLE QHS SC 03/05/19 21:00 03/17/19 20:17 Isosorbide Mononitrate (Imdur) 60 mg QHS PO 03/05/19 21:00 03/17/19 20:16 Levetiracetam (Keppra) 250 mg BID PO 03/05/19 21:00 03/18/19 07:46 Magnesium Hydroxide (Milk Of Magnesia) 30 ml DAILYPRN PRN PO CONSTIPATION 03/05/19 13:45 03/16/19 08:39 Magnesium Oxide (Mag-Ox) 400 mg BID PO 03/05/19 21:00 03/11/19 10:40 DC 03/11/19 08:06 Magnesium Oxide (Mag-Ox) 400 mg DAILY PO 03/12/19 09:00 03/13/19 09:46 DC Menthol/Methyl Salicylate (Bengay Cream) apply to bilat lower ... TID TOP 03/05/19 16:00 03/18/19 07:49 Miscellaneous (Unresolved Patient Own Med Order) SEE LABEL COMMENTS DAILY XX 03/05/19 09:00 03/05/19 18:27 DC Pantoprazole Sodium (Protonix) 40 mg DAILY PO 03/06/19 09:00 03/18/19 07:46 Patient Own Medication (Patient'S Own Med) 600MG = 2 TABS DAILY PO 03/06/19 09:00 03/18/19 07:51 Patient Own Medication (Patient'S Own Med) Korlym 600mg da... ASDIRECTED PO 03/05/19 13:45 UNV Potassium Chloride (Micro-K Extencaps) 40 meq BID PO 03/06/19 21:00 03/15/19 11:47 DC 03/15/19 09:52 Potassium Chloride (Micro-K Extencaps) 40 meq DAILY PO 03/06/19 09:00 03/06/19 10:17 DC 03/06/19 09:07 Potassium Chloride (Micro-K Extencaps) 40 meq DAILY PO 03/16/19 09:00 03/16/19 12:38 DC Potassium Citrate (Urocit-K) 1,080 mg BID@08,18 PO 03/05/19 18:00 03/07/19 08:03 DC 03/06/19 17:57 Potassium Citrate (Urocit-K) 1,080 mg BID@, PO 03/07/19 08:00 03/10/19 12:35 DC 03/10/19 07:42 Pravastatin Sodium (Pravachol) 40 mg QHS PO 03/05/19 21:00 03/17/19 20:16 Ropinirole HCl (Requip) 2 mg BID@0600,1400 PO 03/06/19 06:00 03/18/19 05:49 Ropinirole HCl (Requip) 4 mg QHS PO 03/05/19 21:00 03/05/19 14:58 DC Ropinirole HCl (Requip) 4 mg QHS@2200 PO 03/05/19 22:00 03/17/19 22:23 Senna (Senokot) 1 tab QHS PO 03/05/19 21:00 03/17/19 20:16 Sodium Chloride ([place] Nasal [place]) 2 SPRAYS EACH NOSTRIL QID NA 03/05/19 21:00 03/10/19 12:54 DC 03/08/19 21:11 Spironolactone (Aldactone) 75 mg BID@ PO 03/05/19 17:00 03/07/19 12:53 DC 03/07/19 07:46 Spironolactone (Aldactone) 100 mg BID@,17 PO 03/07/19 17:00 03/18/19 07:47 Tizanidine HCl (Zanaflex) 2 mg TID PO 03/05/19 21:00 03/18/19 07:46 Trazodone HCl (Desyrel) 25 mg QHSP PRN PO INSOMNIA 03/13/19 15:45 03/14/19 16:04 DC 03/13/19 23:15 Vitamin D (Vitamin D) 2,000 units BID PO 03/05/19 21:00 03/18/19 07:47 EVELIN ROGERS MD Mar 18, 2019 15:01
[2019-03-18 20:00] VITALS: BP 160/71
[2019-03-18] MEDS: SENNA 8.6 MG TAB (SENOKOT) PO SCH (20:58)
[2019-03-18] MEDS: PRAVASTATIN 20 MG TAB PO SCH (20:58)
[2019-03-18] MEDS: ISOSORBIDE MON. (IMDUR) 60 MG XR TAB PO SCH (20:59)
[2019-03-19] MEDS: GABAPENTIN 100 MG CAP PO SCH (02:00)
[2019-03-19] MEDS: rOPINIRole 2MG TAB PO SCH ×2 (05:44→12:33)
[2019-03-19 06:54] LABS: BASO % 0.5 % (0.0-1.0); EOS # 0.1 10^3/uL (0.0-0.5); EOS % 1.2 % (0.0-3.0); HEMOGLOBIN 11.2 g/dl (12.0-15.5); LYMPH # 1.5 10^3/uL (1.5-5.0); LYMPH % 36.6 % (24.0-44.0); MEAN CORPUSCULAR HEMOGLOBIN 30.8 pg (27.0-33.0); MEAN CORPUSCULAR HGB CONC 31.1 g/dl (32.0-36.5); MEAN CORPUSCULAR VOLUME 98.9 fl (80.0-96.0); MONO # 0.5 10^3/uL (0.0-0.8); MONO % 10.8 % (0.0-5.0); NEUTROPHILS # 2.1 10^3/uL (1.5-8.5); NEUTROPHILS % 49.7 % (36.0-66.0); PLATELET COUNT, AUTOMATED 171 10^3/uL (150-450); RED BLOOD COUNT 3.64 10^6/uL (4.00-5.40); WHITE BLOOD COUNT 4.2 10^3/uL (4.0-10.0)
[2019-03-19 07:17] LABS: ALBUMIN 3.6 GM/DL (3.2-5.2); CALCIUM LEVEL 9.2 MG/DL (8.8-10.2); GLOMERULAR FILTRATION RATE 26.1 (>39); PHOSPHORUS LEVEL 3.8 MG/DL (2.5-4.9); POTASSIUM SERUM 4.5 MEQ/L (3.5-5.1)
[2019-03-19] MEDS: LEVEMIR (INSULIN DETEMIR) 1 UNITS/0.01ML SC SCH (09:05)
[2019-03-19] MEDS: KORLYM PO SCH (09:05)
[2019-03-19] MEDS: **hydrALAZINE** 50 MG TAB PO SCH (09:05)
[2019-03-19] MEDS: PANTOPRAZOLE 40MG TAB (PROTONIX) PO SCH (09:05)
[2019-03-19] MEDS: tiZANidine 4 MG TAB PO SCH (09:06)
[2019-03-19] MEDS: HEPARIN SOD (PORCINE) 5000 UNITS/ML VIAL (J1644 PER 1000UNITS) SC SCH (09:06)
[2019-03-19 09:07] VITALS: BP 160/71
[2019-03-19] MEDS: ASPIRIN 81 MG ENTERIC TAB PO SCH (09:07)
[2019-03-19] MEDS: levETIRAcetam 250MG TABLET (KEPPRA) PO SCH (09:07)
[2019-03-19] MEDS: FERROUS SULFATE 325MG TAB PO SCH (09:07)
[2019-03-19] MEDS: CARVedilol 12.5 MG TAB PO SCH (09:07)
[2019-03-19] MEDS: DOCUSATE SODIUM 100 MG CAP PO SCH (09:07)
[2019-03-19] MEDS: CLOPIDOGREL 75 MG TAB PO SCH (09:08)
[2019-03-19] MEDS: clonazePAM 0.5 MG TAB PO SCH (09:08)
[2019-03-19] MEDS: FUROSEMIDE 40 MG TAB PO SCH (09:08)
[2019-03-19] MEDS: SPIRONOLACTONE 50 MG TAB PO SCH (09:08)
[2019-03-19] MEDS: VITAMIN D 1,000 INTERNATIONAL UNITS TABLET PO SCH (09:08)
[2019-03-19] MEDS: HumaLOG INSULIN (NovoLOG) PER UNIT SC SCH ×2 (09:10→12:33)
[2019-03-19] MEDS: ANALGESIC BALM CRM 120 GM TOP SCH (09:11)
[2019-03-19] MEDS: REMEDY PHYTOPLEX Z-GUARD PASTE 113GM TUBE (FROM STOREROOM PRODUCT) TOP SCH (09:12)
[2019-03-19] MEDS ORDERED: CLON0.2D6 TOP (09:53)
[2019-03-19] MEDS ORDERED: FURO40TA2 PO (09:53)
[2019-03-19] MEDS ORDERED: LEVE250T5 PO (09:53)
[2019-03-19] MEDS ORDERED: HYDR50TA PO (09:53)
[2019-03-19] MEDS ORDERED: CLOP75TA2 PO (09:53)
[2019-03-19] MEDS ORDERED: ISOS60TA2 PO (09:53)
[2019-03-19] MEDS ORDERED: BASA100I SC (09:53)
[2019-03-19] MEDS ORDERED: TIZA2TAB4 PO (09:53)
[2019-03-19] MEDS ORDERED: GABA-1171 PO (09:53)
[2019-03-19] MEDS ORDERED: ALDA50TA2 PO (09:53)
[2019-03-19] MEDS ORDERED: CARV25TA PO (09:53)
[2019-03-19] MEDS ORDERED: PRAV40TA2 PO (09:53)
[2019-03-19] MEDS ORDERED: ASPI-161 PO (09:53)
[2019-03-19] MEDS ORDERED: ALDA25TA2 PO ×2 (12:29)
[2019-03-19] MEDS ORDERED: LASI40TA9 PO (12:29)
[2019-03-19 14:00] VITALS: BP 120/56
--- NOTE | 2019-03-19 15:45 | IPNPDOC ---
Text Note Date of Service The patient was seen on 03/19/19. NOTE This note pertains to the nephrology service with Jacqueline Nickerson MD super vising my work. Please see E attestation below. SUBJECTIVE: Patient was seen at bedside this morning. She remains afebrile and does hot have any further complaints at this time. Pt states that she will be discharged today. OBJECTIVE: Vital Signs: See below. General: Pt appears stated age, is in no acute distress, and is seated in a recliner. HEENT: Normocephalic, atraumatic. EOMI. Mucous membranes are moist. Neck is supple. Cardiovascular: Regular rate and rhythm. Normal S1 and S2. 1+ left ankle and 2+ right ankle swelling present. Respiratory: Lungs are clear to auscultation b/l. No wheezes, rales, or rhonchi. Abdomen: Soft, obese. Right lower quadrant urostomy present and attached to a bag. Psychological: Pt is calm and cooperative. She answers questions appropriately. Insight is good. Intake and Output: Urine output recorded as 3.05L yesterday, 600 mL so far today. Lab values: BMP showed sodium 139, potassium 4.5, chloride 103, and bicarb 30 with BUN (48) and creatinine (2.00) both trending down from yesterday. ASSESSMENT/PLAN: 1. Chronic diastolic congestive heart failure - Creatinine decreased to 2.00 this morning. Ankle edema still present on exam, but has been improving. - Given her electrolyte response to diuresis in the hospital, recommend that pt be discharged on furosemide 40mg PO BID and spironolactone 50mg PO qAM plus spironolactone 25mg PO qPM. We will be happy to follow up with her as an outpatient. 2. Hyperkalemia, resolved - Potassium was 4.5 this morning. No further action is recommended at this time. 3. Acute kidney injury on chronic kidney disease stage III, resolving - Creatinine continues to trend down. - Recommend continuing diuresis on an outpatient basis (see #1). VS,Fishbone, I+O VS, Fishbone, I+O Laboratory Tests 03/19/19 06:34 Vital Signs Date Time Temp Pulse Resp B/P (MAP) Pulse Ox O2 Delivery O2 Flow Rate FiO2 03/19/19 14:00 96.7 52 18 120/56 (77) 99 Room Air I&O- Last 24 Hours up to 6 AM 03/19/19 06:00 Intake Total 1000 ml Output Total 3650 ml Balance -2650 ml GME ATTESTATION GME ATTESTATION My faculty preceptor for this patient encounter was physically present during the encounter and was fully available. All aspects of the patient interview, examination, medical decision making process, and medical care plan development were reviewed and approved by the faculty preceptor. The faculty preceptor is aware and concurs with the plan as stated in the body of this note and will attest to such by his/her cosignature. TOSHIA SMITH OMS-III Mar 19, 2019 15:45
[2019-03-19] MEDS ORDERED: SPIRONOLACTONE 25 MG TAB PO SCH (17:00)
[2019-03-20] MEDS ORDERED: SPIRONOLACTONE 25 MG TAB PO SCH (09:00)
--- NOTE | 2019-04-02 20:19 | PMRDS ---
DATE OF ADMISSION: 03/05/2019 DATE OF DISCHARGE: 03/19/2019 CHIEF COMPLAINT/DISCHARGE DIAGNOSIS: Stroke. HISTORY OF PRESENT ILLNESS: 74F pmh multiple ischemic strokes, severe right carotid artery stenosis s/p CEA 2017, Dee syndrome, hypokalemia, HTN, DM, with peripheral polyneuropathy,CAD s/p stenting, bladder cancer s/p cystectomy with ileal conduit, left adrenal mass, CKD3 who presented to [facility] ED on 02-28-19 with weakness and slurred speech. MRI of her brain showed, There is a very small subcentimeter focus of restricted diffusion indicating acute ischemia in the right central elpidio. There is an old lacunar infarct in the left central elpidio. This left-sided infarct was acute on the June 21, 2018 study. The right pontine infarct is new today. She was seen by neurology who recommended Aspirin, Plavix, and statin therapy. She was followed by renal as well for elevated BPs and fluid overload for which she was treated with IV diuretic and fluid restriction. She also had difficult to control blood pressure requiring a clonidine patch. She was evaluated by therapy, found to be below her prior level of function and deemed appropriate for discharge to ARU on 03-05-19. PAST MEDICAL HISTORY: As per history of present illness (HPI). HOSPITAL COURSE: The patient was admitted and enrolled in a comprehensive physical therapy (PT), occupational therapy (OT), speech/language pathology program. She received 24-hour nursing supervision, and weekly team meetings were held to discuss her progress. The patient was followed closely by nephrology (cut off) and electrolyte management. The patient's blood pressure was controlled with Coreg, clonidine, Imdur, and varying doses of Lasix in addition to hydralazine for her chronic fluid overloaded status. Patient during her hospital course complained of worsening restless leg syndrome. She was already on maximum dose of Requip, and so she was started on a low-dose gabapentin, which assisted her leg pain in the middle of the night. The patient had made inconsistent gains in therapy, however, ultimately was deemed medically and functionally stable to return home with supervision to be provided by the and a family friend. DISCHARGE MEDICATIONS: As per instructions. FUNCTIONAL HISTORY ON DISCHARGE: The patient was modified independent for functional transfers. Able to ambulate 50 feet standby assist with a rolling walker. In occupational therapy she was standby assist for toileting and dressing. Thank you for this referral.
== END 2019-03-19 14:41 | disposition home health service (06) | DRG 57 ==
LOC: M PM&R 17:00
PROVIDERS: ADMIT Physical Medicine & Rehabilitation; ATTEND Physical Medicine & Rehabilitation
DX: I69.398 Other sequelae of cerebral infarction (principal); I50.32 Chronic diastolic (congestive) heart failure; E24.9 Cushing's syndrome, unspecified; I13.0 Hypertensive heart and chronic kidney disease with heart failure and stage 1 through stage 4 chronic kidney disease, or unspecified chronic kidney disease; N17.9 Acute kidney failure, unspecified; E87.3 Alkalosis; R53.1 Weakness; I65.21 Occlusion and stenosis of right carotid artery; E87.6 Hypokalemia; E11.42 Type 2 diabetes mellitus with diabetic polyneuropathy; I25.10 Atherosclerotic heart disease of native coronary artery without angina pectoris; Z85.51 Personal history of malignant neoplasm of bladder; N18.3 Chronic kidney disease, stage 3 (moderate); E11.22 Type 2 diabetes mellitus with diabetic chronic kidney disease; N28.89 Other specified disorders of kidney and ureter; Z79.82 Long term (current) use of aspirin; Z79.899 Other long term (current) drug therapy; Z79.4 Long term (current) use of insulin; E66.9 Obesity, unspecified; Z68.33 Body mass index [BMI] 33.0-33.9, adult; E11.65 Type 2 diabetes mellitus with hyperglycemia; M19.90 Unspecified osteoarthritis, unspecified site; G47.33 Obstructive sleep apnea (adult) (pediatric); G25.81 Restless legs syndrome; I27.20 Pulmonary hypertension, unspecified

== ENCOUNTER → 2019-04-08 | Outpatient (REF) | payer MEDICARE ==
[~2019-04-08] MED LIST changes: +ALDA25TA2 PO; +CLON0.2D6 TOP; +ISOS60TA2 PO
== END ==
LOC: M SMT 17:05
PROVIDERS: ATTEND Nurse Practitioner Women's Health
DX: Z85.51 Personal history of malignant neoplasm of bladder (principal)
CPT/HCPCS: 88108; G0463